=== PATIENT | male | born 1980 | race Caucasian/White ===

== ENCOUNTER 2016-03-30 13:25 | Inpatient (IN) | payer OTHER ==
[2016-03-30] MEDS ORDERED: Morphine INJ* 4 MG/ML 1 ML CARPUJECT IV ONE (14:53)
[2016-03-30] MEDS ORDERED: Famotidine IV* 10 MG/ML 2 ML (20 mg) IV ONE (14:53)
[2016-03-30] MEDS ORDERED: Metoclopramide IV* 5 MG/ML 2 ML VIAL IV ONE (14:53)
[2016-03-30 15:23] LABS: Hematocrit 41 % (42-52); Hemoglobin 13.6 g/dl (14.0-18.0); Mean Corpuscular HGB Conc 34 g/dl (31-36); Mean Corpuscular Hemoglobin 28 pg (27-31); Mean Corpuscular Volume 84 fL (80-94); Mean Platelet Volume 8 um3 (7.4-10.4); Red Blood Count 4.82 10^6/ul (4.0-5.4); Red Cell Distribution Width 15 % (10.5-15); White Blood Count 12.2 10^3/ul (3.5-10.8)
[2016-03-30] MEDS: NS 0.9% 1000 ML* 2,000 ML IV ONE ×2 (15:23→16:35)
[2016-03-30 15:37] LABS: Urine Bacteria Absent (Absent); Urine Bilirubin Negative (Negative); Urine Glucose 3+(>=500 mg/dL) (Negative); Urine Nitrite Negative (Negative)
[2016-03-30 15:38] LABS: ALT 14 U/L (7-52); AST 19 U/L (13-39); Albumin 4.8 g/dL (3.2-5.2); Alkaline Phosphatase 103 U/L (34-104); Amylase 76 U/L (29-103); Anion Gap 15 mmol/L (2-11); BUN/Creatinine Ratio 12.7 (8-20); Blood Urea Nitrogen 29 mg/dL (6-24); C Reactive Protein < 1.00 mg/L (< 5.00); CO2 Carbon Dioxide 22 mmol/L (22-32); Calcium 10.3 mg/dL (8.6-10.3); Chloride 90 mmol/L (101-111); EGFR Non-African American 32.7 (>60); Globulin 3.8 g/dL (2-4); Glucose 364 mg/dL (70-100); Lipase 35 U/L (11.0-82.0); Potassium 3.6 mmol/L (3.5-5.0); Sodium 127 mmol/L (133-145); Total Protein 8.6 g/dL (6.4-8.9)
--- NOTE | 2016-03-30 15:49 | RAD ---
Indication: Epigastric pain. 2 views of the chest including dual energy PA views demonstrate no mediastinal shift. Heart is of normal size and configuration. Lung hassan are clear. IMPRESSION: No active cardiopulmonary disease is noted.
[2016-03-30] MEDS ORDERED: Insulin REGULAR(*) 1 UNITS UNIT IV PUSH ONE (16:01)
[2016-03-30 16:15] LABS: Venous Bicarbonate HCO3 25.3 mmol/L (24-28)
--- NOTE | 2016-03-30 16:47 | ED ---
Leland Sarkar Billy, scribed for uShail Lockwood MD on 03/30/16 at 1451 . Abdominal Pain/Male - HPI Summary HPI Summary: Patient is a 36 year-old diabetic male coming to [facility] presenting with constant epigastric pain starting 6 days ago. He reports associated N/V/D. Severity . He states that he has had similar episodes of pain in the past related to his gluten allergy, but he denies any recent gluten intake. He reports BG >600 today at 0300 and 0900, and he administered 10 units humalog at that time. Last BM last night, 1x solid BM followed by 2x liquid BM. Denies any recent abx, travel, or contact with sick people at home. In the ED, he expressed concerns for DKA. - History of Current Complaint Chief Complaint: Gautam Stated Complaint: LEONARDO CHENG, Time Seen by Provider: 03/30/16 14:28 Hx Obtained From: Patient Onset/Duration: Gradual Onset, Lasting Days, Still Present Timing: Constant Severity Initially: Moderate Severity Currently: Moderate Pain Intensity: 8 Pain Scale Used: 0-10 Numeric Location: Epigastric Radiates: No Aggravating Factor(s): Nothing Alleviating Factor(s): Nothing Associated Signs And Symptoms: Positive: Nausea, Vomiting, Diarrhea - Allergies/Home Medications Allergies/Adverse Reactions: Allergies Allergy/AdvReac Type Severity Reaction Status Date / Time No Known Allergies Allergy Verified 06/28/15 13:18 PMH/Surg Hx/FS Hx/Imm Hx Endocrine/Hematology History: Reports: Hx Diabetes - Type 1 Denies: Hx Anticoagulant Therapy, Hx Thyroid Disease Cardiovascular History: Denies: Hx Hypertension, Hx Pacemaker/ICD, Hx Peripheral Vascular Disease Respiratory History: Reports: Hx Pneumonia Denies: Hx Asthma, Hx Chronic Bronchitis, Hx Chronic Obstructive Pulmonary Disease (COPD), Hx Cystic Fibrosis, Hx Lung Cancer, Hx Pleural Effusion, Hx Pulmonary Edema, Hx Pulmonary Embolism, Hx Seasonal Allergies, Hx Sleep Apnea, Other Respiratory Problems/Disorders GI History: Reports: Hx Gastroesophageal Reflux Disease, Hx Gastrointestinal Bleed, Hx Ulcer, Other GI Disorders - Erosive esophagitis, gastroparesis Denies: Hx Cirrhosis, Hx Crohn's Disease, Hx Diverticulosis, Hx Gall Bladder Disease, Hx Hiatal Hernia, Hx Irritable Bowel, Hx Jaundice, Hx Obstructive Bowel , Hx Ileostomy, Hx Pyloric Stenosis History: Reports: Other Problems/Disorders - chronic kidney disease Denies: Hx Kidney Stones, Hx Renal Disease Musculoskeletal History: Denies: Hx Arthritis, Hx Osteoporosis Sensory History: Denies: Hx Cataracts, Hx Contacts or Glasses, Hx Eye Injury, Hx Eye Prosthesis, Hx Glaucoma, Hx Macular Degeneration, Hx Vision Problem, Hx Deafness , Hx Hearing Aid, Hx Hearing Problem, Other Sensory Impairments Opthamlomology History: Denies: Hx Cataracts, Hx Contacts or Glasses, Hx Eye Injury, Hx Eye Prosthesis, Hx Glaucoma, Hx Macular Degeneration, Hx Vision Problem, Other Sensory Impairments Neurological History: Denies: Hx Dementia, Hx Headaches, Hx Seizures, Hx Transient Ischemic Attacks (TIA) Psychiatric History: Reports: Hx Anxiety, Hx Depression, Hx Bipolar Disorder, Hx Substance Abuse - Marijuana Denies: Hx Eating Disorder, Hx Panic Disorder, Hx Post Traumatic Stress Disorder, Hx Schizophrenia, Hx of Violent Episodes Against Others, Other Psychiatric Issues/Disorders - Cancer History Hx Chemotherapy: No Hx Radiation Therapy: No - Surgical History Hx Anesthesia Reactions: No - Immunization History Date of Tetanus Vaccine: Unk Date of Influenza Vaccine: None Infectious Disease History: No Infectious Disease History: Denies: Hx Hepatitis, Hx Human Immunodeficiency Virus (HIV), Hx Shingles, Hx Tuberculosis, History Other Infectious Disease, Traveled Outside the [place] in Last 30 Days - Family History Known Family History: Negative: Cardiac Disease, Hypertension, Diabetes - Social History Alcohol Use: None Substance Use Type: Reports: Marijuana Substance Use Comment - Amount & Last Used: frequent Smoking Status (MU): Current Some Day Smoker Type: Cigarettes Amount Used/How Often: 1/2PPD Length of Time of Smoking/Using Tobacco: 20 years Have You Smoked in the Last Year: Yes Review of Systems Negative: Fever Positive: Abdominal Pain, Vomiting, Diarrhea, Nausea All Other Systems Reviewed And Are Negative: Yes Physical Exam - Summary Physical Exam Summary: VITAL SIGNS: Reviewed. GENERAL: Patient is a thin male who is lying comfortable in the stretcher. Patient is not in any acute respiratory distress. HEAD AND FACE: No signs of trauma. No ecchymosis, hematomas or skull depressions. No sinus tenderness. EYES: PERRLA, EOMI x 2, No injected conjunctiva, no nystagmus. EARS: Hearing grossly intact. Ear canals and tympanic membranes are within normal limits. MOUTH: Oropharynx within normal limits. NECK: Supple, trachea is midline, no adenopathy, no JVD, no carotid bruit, no c- spine tenderness, neck with full ROM. CHEST: Symmetric, no tenderness at palpation LUNGS: Clear to auscultation bilaterally. No wheezing or crackles. CVS: Regular rate and rhythm, S1 and S2 present, no murmurs or gallops appreciated. ABDOMEN: Soft, epigastric tenderness. No signs of distention. No rebound no guarding, and no masses palpated. Bowel sounds are normal. EXTREMITIES: FROM in all major joints, no edema, no cyanosis or clubbing. NEURO: Alert and oriented x 3. No acute neurological deficits. Speech is normal and follows commands. SKIN: Dry and warm Triage Information Reviewed: Yes Vital Signs On Initial Exam: Initial Vitals Temp Pulse Resp BP Pulse Ox 97.8 F 111 16 148/101 100 03/30/16 13:26 03/30/16 13:26 03/30/16 13:26 03/30/16 13:26 03/30/16 13:26 Vital Signs Reviewed: Yes Diagnostics - Vital Signs Vital Signs Temp Pulse Resp BP Pulse Ox 03/30/16 13:26 97.8 F 111 16 148/101 100 - Laboratory Lab Results: Lab Results 03/30/16 Range/Units 13:33 POC Glucose (mg/dL) 370 H (74-106) mg/dL Result Diagrams: 03/30/16 15:00 03/30/16 15:00 Lab Statement: Any lab studies that have been ordered have been reviewed, and results considered in the medical decision making process. - Radiology CXR Xray Interpretation: No Acute Changes Radiology Interpretation Completed By: Radiologist - EKG 1518 EKG Interpretation: sinus tachy 114 bpm, no ST elevations Re-Evaluation - Re-Evaluation First Eval Re-Evaluation Time: 16:36 Comment: Plan for admission reviewed and discussed with the patient. He is agreeable with this plan. Abdominal Pain Fem Course/Dx - Course Assessment/Plan: Patient is a 36 year-old diabetic male coming to [facility] presenting with constant epigastric pain starting 6 days ago. He reports associated N/V/D. Severity 10/25. He states that he has had similar episodes of pain in the past related to his gluten allergy, but he denies any recent gluten intake. He reports BG >600 today at 0300 and 0900, and he administered 10 units humalog at that time. Last BM last night, 1x solid BM followed by 2x liquid BM. Denies any recent abx, travel, or contact with sick people at home. In the ED, he expressed concerns for DKA. Bloodwork shows WBC of 12.2 with increased H&H and platelet count possibly secondary to hemoconcentration. Blood gas shows pH of 7.59, sodium of 127. Chemistry shows anion gap is 15, CO2 is 22, BUN is 29, creatinine is 2.29, glucose is 364. CXR shows no abnormalities. In the ED course , he was given 2L of IV fluids and insulin for his hyperglycemia. Anion gap is elevated even though CO2 is normal. I believe he may go into DKA since he still has nausea and vomiting. Therefore, I discussed my physical exam findings with Dr. Martinez who accepted the patient for admission for further workup and management. He is hemodynamically stable, A&Ox3. - Diagnoses Differential Diagnosis/HQI/PQRI: Gall Bladder Disease, Pancreatitis, Other - DKA Provider Diagnoses: Hyperglycemia, Nausea and vomiting, Diarrhea - Provider Notifications Discussed Care Of Patient With: Dr. Martinez (hospitalist) @ [id number]: accepts admission. Discharge - Discharge Plan Condition: Stable Disposition: ADMITTED TO [facility] Referrals: Toby Edge MD [Primary Care Provider] - The documentation as recorded by the Leland deutsch Billy accurately reflects the service I personally performed and the decisions made by me, Suhail Lockwood MD.
[2016-03-30] MEDS ORDERED: Ondansetron ODT TAB* 4 MG PO ONE (17:03)
[2016-03-30] MEDS ORDERED: Acetaminophen TAB* 325 MG PO PRN (17:17)
[2016-03-30] MEDS ORDERED: Dextrose 50% Syringe 50 ML* 25 GM/50 ML SYRINGE IV PUSH PRN (17:26)
[2016-03-30] MEDS ORDERED: NS 0.9% 1000 ML* 2,000 ML IV ONE (17:34)
[2016-03-30] MEDS ORDERED: Ondansetron INJ* 2 MG/ML VIAL IV SCH ×2 (18:00→21:30)
--- NOTE | 2016-03-30 18:47 | HP ---
HOSPITAL MEDICINE HISTORY AND PHYSICAL: DATE OF ADMISSION: 03/30/16 PRIMARY CARE PHYSICIAN: Dr. Edge. ATTENDING PHYSICIAN: Dr. Matt Martinez * (dictation provided by Anjali Palmer NP). CHIEF COMPLAINT: Nausea, vomiting, diarrhea, abdominal pain. HISTORY OF PRESENT ILLNESS: Mr. Simmons is a 36-year-old male with a past medical history of type 1 diabetes since childhood; chronic episodes of nausea, vomiting, diarrhea with gastroparesis, gastritis, and esophagitis; history of celiac disease; anxiety; depression; bipolar disorder; neuropathy; chronic kidney disease, stage 3A to 3B who presents today to the hospital with complaint of nausea, vomiting and abdominal pain. He reports that these symptoms are consistent with his previous episodes. He has an allergy to wheat but states that he has had no exposure. He denies other complaint including chest pain, SOB, or palpitations. He reports that he is taking his medications regularly but that his blood sugar has been elevated. In the emergency room he had an elevated blood glucose to 364 but his anion gap is only 15 and his ABG demonstrates that he actually has a metabolic alkalosis likely secondary to hyperventilation due to pain. However based on patient's symptoms and history of Type 1 diabetes, there is a concern for the development of diabetic ketoacidosis and Hospital Medicine has been called to place patient on observation overnight. MEDICATIONS: 1. Lantus 28 units subcutaneously q.a.m. 2. Reglan 10 mg p.o. q.8 hours p.r.n. 3. Humalog insulin t.i.d. with meals via carb counting and sliding scale. 4. Tylenol 650 mg p.o. q.4 hours p.r.n. 5. Gabapentin 300 mg p.o. t.i.d. The patient states he has recently run out of that medication. 6. Pantoprazole 40 mg p.o. b.i.d. ALLERGIES: No known drug allergies. FAMILY HISTORY: Apparently, his mother had a CVA. The details of his father's health is unknown. SOCIAL HISTORY: The patient says he smokes occasionally. He does smoke marijuana frequently. There is no report of alcohol or drug use. He states his mother would be the healthcare proxy at this point. REVIEW OF SYSTEMS: A 14-point review of systems was completed with Mr. Simmons and all those not mentioned above are negative. PHYSICAL EXAMINATION GENERAL: Mr. Simmons is lying in the bed. He appears mildly uncomfortable, but in no acute distress. VITAL SIGNS: Temperature 97.8, heart rate 106, respiratory rate 16, O2 saturation 100% on room air, blood pressure 131/100. LUNGS: Clear to auscultation bilaterally with no accessory muscle use and good aeration. HEART: S1, S2 and rapid. No murmur, rub, or gallop. ABDOMEN: Soft. There is tenderness in the epigastric region. Bowel sounds positive. EXTREMITIES: No cyanosis or edema. NEURO: He is alert and oriented x3. He moves all extremities equally. There is no facial asymmetry or focal weakness. Extraocular movements are intact. SKIN: Intact. DIAGNOSTIC STUDIES/LAB DATA: Sodium 127, potassium 3.6, chloride 90, serum bicarbonate 22, BUN 29, creatinine 2.29, anion gap is 15, glucose 364. WBC 12.2 , hemoglobin 13.6, hematocrit 41, platelet count 496. pH 7.59, PCO2 23, PO2 28 , bicarbonate 58.8. Chest x-ray shows no acute process. ASSESSMENT AND PLAN: Mr. Simmons is a 36-year-old male with past medical history of type 1 diabetes and chronic issues with nausea, vomiting, diarrhea, and epigastric pain with history of esophagitis, ulcerations, and celiac disease, who presents today to the hospital with concern for repeat episode of nausea, vomiting, diarrhea, abdominal pain with concern for hyperglycemia and early stages of diabetic ketoacidosis. Our plans are for observation in the hospital for the followin. Hyperglycemia: The patient's blood sugar is mildly elevated. He is not meeting criteria for diabetic ketoacidosis at this point. His anion gap is only 15. His ABG is actually showing metabolic alkalosis. I think this is secondary to the patient's rapid respiratory rate as he feels uncomfortable and is breathing quickly. However, I am worried about the early development of diabetic ketoacidosis. Our plans will be to continue his home Lantus with lispro sliding scale q.6 hours. I will add on a hemoglobin A1c. He will have consistent carbohydrate diet as tolerated. 2. Nausea, vomiting, diarrhea, abdominal pain: This has been a chronic issue for Mr. Simmons. He has known history of frequent bouts of gastritis and esophagitis and ulcerations as well as celiac disease. At this point, plan to treat his symptoms with Protonix, sucralfate, Zofran, and Reglan. Should he develop any concerning symptoms, we would not hesitate to image further as needed. 3. DVT prophylaxis: With heparin subcu. 4. Disposition: To the medical floor. TIME SPENT: Approximately 60 minutes was spent on admission of this patient, more than half the time spent with the patient at the bedside reviewing the events leading up to this hospitalization, performing the physical examination, and reviewing the plan of [place] [id number]/[facility] #: [id number] DESHAUN
[2016-03-30] MEDS: Morphine INJ* 4 MG/ML 1 ML CARPUJECT IV PRN (19:43)
[2016-03-30] MEDS: NS 0.9% 1000 ML* 1,000 ML IV SCH (19:50)
[2016-03-30] MEDS: Gabapentin CAP(*) 300 MG PO SCH (21:05)
[2016-03-30] MEDS: Sucralfate TAB* 1 GM PO SCH (21:05)
[2016-03-30] MEDS: Heparin VIAL(*) 5000 UNITS/ML VIAL (FIVE THOUSAND) SUBCUT SCH (21:07)
[2016-03-30] MEDS: PROCHLORPERAZINE INJ 5 MG/ML 2 ML VIAL IV PRN (22:56)
[2016-03-30] MEDS: HYDROmorphone INJ* 1 MG/ML CARPUJECT SYRINGE IV SLOW PU PRN (22:57)
[2016-03-31] MEDS: Morphine INJ* 4 MG/ML 1 ML CARPUJECT IV PRN ×3 (02:20→12:56)
[2016-03-31] MEDS: NS 0.9% 1000 ML* 1,000 ML IV SCH ×3 (03:53→20:21)
[2016-03-31] MEDS: HYDROmorphone INJ* 1 MG/ML CARPUJECT SYRINGE IV SLOW PU PRN ×3 (05:30→20:22)
[2016-03-31] MEDS: Heparin VIAL(*) 5000 UNITS/ML VIAL (FIVE THOUSAND) SUBCUT SCH ×3 (05:34→21:27)
[2016-03-31 06:16] LABS: Hematocrit 33 % (42-52); Mean Corpuscular HGB Conc 34 g/dl (31-36); Mean Corpuscular Hemoglobin 29 pg (27-31); Mean Corpuscular Volume 85 fL (80-94); Mean Platelet Volume 8 um3 (7.4-10.4); Red Blood Count 3.84 10^6/ul (4.0-5.4); Red Cell Distribution Width 15 % (10.5-15); White Blood Count 10.3 10^3/ul (3.5-10.8)
[2016-03-31 06:27] LABS: BUN/Creatinine Ratio 9.5 (8-20); Calcium 8.3 mg/dL (8.6-10.3); EGFR African American 55.9 (>60); EGFR Non-African American 43.4 (>60); Potassium 3.4 mmol/L (3.5-5.0)
[2016-03-31] MEDS: Omeprazole CAP* 20 MG PO SCH ×2 (07:55→17:40)
[2016-03-31] MEDS: Metoclopramide IV* 5 MG/ML 2 ML VIAL IV PRN (08:57)
[2016-03-31] MEDS: Insulin LISPRO* 1 UNITS UNIT SUBCUT SCH ×3 (10:18→17:49)
[2016-03-31] MEDS: Insulin GLARGINE(*) 1 UNITS UNIT SUBCUT SCH (10:23)
[2016-03-31] MEDS: Sucralfate TAB* 1 GM PO SCH ×3 (10:24→20:23)
[2016-03-31] MEDS: Gabapentin CAP(*) 300 MG PO SCH ×3 (10:24→20:22)
[2016-03-31] MEDS: PROCHLORPERAZINE INJ 5 MG/ML 2 ML VIAL IV PRN (10:52)
[2016-03-31] MEDS: Ondansetron INJ* 2 MG/ML VIAL IV PRN ×2 (12:56→20:22)
--- NOTE | 2016-03-31 15:32 | PN ---
Subjective Date of Service: 03/31/16 Interval History: . denies abd pain + admits feeling suicidal -- reveals untreated bipolar disease "if I go home, I think I might hurt myself" very disorganized and in minor crisis. will admit and ask for psych consult it is probably that psychiatric situation is exacerbating his compliance with medical care and diabetes suffered as a result. reviewed labs with patient -- improved relative to admission. starting full liquids. Family History: Unchanged from Admission Social History: Unchanged from Admission Past Medical History: Unchanged from Admission Objective Active Medications: . Acetaminophen (Tylenol Tab*) 650 mg PO Q4H PRN PRN Reason: PAIN Dextrose (D50w Syringe 50 Ml*) 12.5 gm IV PUSH .FOR FS < 60 - SS PRN PRN Reason: FS < 60 Gabapentin (Neurontin Cap(*)) 300 mg PO TID [facility] Last Admin: 03/31/16 14:41 Dose: 300 mg Heparin Sodium (Porcine) (Heparin Vial(*)) 5,000 units SUBCUT Q8HR [facility] Last Admin: 03/31/16 14:13 Dose: Not Given Hydromorphone HCl (Dilaudid Iv*) 0.5 mg IV SLOW PU Q4H PRN PRN Reason: PAIN Last Admin: 03/31/16 10:51 Dose: 0.5 mg Sodium Chloride (Ns 0.9% 1000 Ml*) 1,000 mls @ 125 mls/hr IV PER RATE [facility] Last Admin: 03/31/16 12:22 Dose: 125 mls/hr Insulin Glargine (Lantus(*)) 28 units SUBCUT DAILY [facility] Last Admin: 03/31/16 10:23 Dose: 28 unit Insulin Human Lispro (Humalog*) 0 units SUBCUT [facility] PRN Reason: Protocol Last Admin: 03/31/16 12:56 Dose: 3 units Metoclopramide HCl (Reglan Iv*) 10 mg IV Q6H PRN PRN Reason: NAUSEA/VOMITING Last Admin: 03/31/16 08:57 Dose: 10 mg Morphine Sulfate (Morphine Inj (Syringe)*) 4 mg IV Q4H PRN PRN Reason: PAIN Last Admin: 03/31/16 12:56 Dose: 4 mg Omeprazole (Prilosec Cap*) 40 mg PO BID [facility] Last Admin: 03/31/16 07:55 Dose: 40 mg Ondansetron HCl (Zofran Inj*) 4 mg IV Q4H PRN PRN Reason: NAUSEA Last Admin: 03/31/16 12:56 Dose: 4 mg Prochlorperazine Edisylate (Compazine Inj*) 5 mg IV Q6H PRN PRN Reason: NAUSEA/VOMITING Last Admin: 03/31/16 10:52 Dose: 5 mg Sucralfate (Carafate*) 1 gm PO TID [facility] Last Admin: 03/31/16 14:46 Dose: 1 gm . Vital Signs 03/30/16 03/30/16 03/30/16 17:30 18:00 18:32 Temperature 97.7 F Pulse Rate 110 108 106 Respiratory 25 27 20 Rate Blood Pressure 171/108 157/97 165/95 (mmHg) O2 Sat by Pulse 99 100 100 Oximetry 03/30/16 03/30/16 03/30/16 19:43 20:43 21:05 Temperature Pulse Rate Respiratory 18 15 15 Rate Blood Pressure (mmHg) O2 Sat by Pulse Oximetry Appearance: emotionally upset - crying at times - dishevelled appearing Eyes: No Scleral Icterus Ears/Nose/Mouth/Throat: Clear Oropharnyx Neck: Trachea Midline Respiratory: Symmetrical Chest Expansion and Respiratory Effort Cardiovascular: NL Sounds; No Murmurs; No JVD Abdominal: NL Sounds; No Tenderness; No Distention Lymphatic: No Cervical Adenopathy Extremities: No Edema Skin: No Rash or Ulcers Lines/Tubes/Other Access: Clean, Dry and Intact Peripheral IV Nutrition: Taking PO's Result Diagrams: 03/31/16 05:51 03/31/16 05:51 Additional Lab and Data: Lab Results 03/30/16 Range/Units 13:33 POC Glucose (mg/dL) 370 H (74-106) mg/dL Assess/Plan/Problems-Billing . Assessment: 36 yo man admitted with mild DKA - multiple elctrolyte derangements -- now with suicidal thoughts and fears being discharged today Admit and request psychiatry consultation. . - Patient Problems (1) Abdominal pain Current Visit: No Status: Acute Priority: High Code(s): R10.9 - UNSPECIFIED ABDOMINAL PAIN Comment: - resolved with treatment of hyperglycemia - anion gap closed - not acidotic (2) DKA (diabetic ketoacidoses) Current Visit: No Status: Acute Priority: High Code(s): E13.10 - OTH DIABETES MELLITUS WITH KETOACIDOSIS WITHOUT COMA Comment: Blood CO2 and anion gap consistent with mild DKA that has resolved. Although it could have been precipitated by an attack of cyclic emesis/abd pain/ gastroparesis I suspect it was the cause of his abd pain. (3) History of anxiety Current Visit: No Status: Chronic Priority: Medium Code(s): Z86.59 - PERSONAL HISTORY OF OTHER MENTAL AND BEHAVIORAL DISORDERS (4) History of depression Current Visit: No Status: Chronic Priority: High Code(s): Z86.59 - PERSONAL HISTORY OF OTHER MENTAL AND BEHAVIORAL DISORDERS (5) History of neuropathy Current Visit: No Status: Chronic Priority: Medium Code(s): Z86.69 - PERSONAL HISTORY OF DIS OF THE NERVOUS SYS AND SENSE ORGANS Comment: A. Stable - Continue Gabapentin (6) Hx of bipolar disorder Current Visit: No Status: Chronic Priority: Medium Code(s): Z86.59 - PERSONAL HISTORY OF OTHER MENTAL AND BEHAVIORAL DISORDERS Comment: patient now with suicidal ideations not actively treated for bipolar disease psych consult requested
[2016-03-31] MEDS ORDERED: Potassium Chlor TAB* 10 MEQ TAB.ER PO ONE (15:33)
--- NOTE | 2016-03-31 18:00 | PN ---
Progress Note - Progress Note Note: Saw Mr. Simmons on his bedside for a psychiatric consult requested by Dr. Martinez. Please refer to my dictated consultation marj for details. Mr. Simmons at this time presents as severely depressed with depressed mood, anhedonia, helplessness , hopelessness, guilty and suicida with a plan to jump off high places. He is psychiatrically unsafe for discharge due to active suicidal thought and a definitive plan. Transfer patient to a behavioral health unit where ever bed is available. Thanks for allowing me to perticipate in Mr. Simmons's care.
--- NOTE | 2016-03-31 23:39 | CONS ---
CONSULTATION REPORT: DATE OF CONSULT: 03/31/16 IDENTIFYING DATA: Barron is a 36-year-old disabled male with prior history of multiple p sychiatric hospitalizations here, in [place] and other places, is currently admitted on medical [facility] with chief complaints of nausea, vomiting, diarrhea, and abdominal pain. CHIEF COMPLAINT: "Suicidal ideation with a plan to jump off any high rises or high places like [facility]." HISTORY OF PRESENT ILLNESS: Paco with known history of mental illness and a possible diagnosis of ma warren depressive disorder/bipolar disorder came to the emergency department yesterday complaining of n ausea, vomiting, diarrhea and abdominal pain for which he was admitted to the medical floor. During a routine assessment today, he reported to Dr. Martinez that he has been depressed and thinking abo ut suicide if he was sent home. During my assessment on the medical floor, he reports that he has b een depressed off and on for some time and has been thinking about suicide which got intense after h is admission to the medical floor. He thought about jumping off a high rise to end his life; however , could not do it because of the thoughts of his current fiance, who is hospitalized on [address] [place] [address]. Dur ing the assessment, he reports that he has been feeling depressed with sadness, anhedonia, hopelessn ess, worthlessness, and guilt feeling for pushing his fiancee too far to make her suicidal and hospi talized on [address] [place] [address]. He also reports that there were times that he could become hypomanic with eleva evita mood, sleeplessness, increased energy, so on. He denies any manic or hypomanic symptoms at this time, also denies any psychosis ever. According to Dr. Martinez, he is not medically ready tonight for discharge and might discharge him tomorrow if he is psychiatrically safe to be discharged home. I personally do not believe that he is psychiatrically safe to be discharged because of his prior history of impulsive behaviors and current suicidal thoughts with plan and the stressors in his life , which includes his fiancee's health status, his unemployment, financial problem, lack of support s ystems, as well as chronic physical health conditions that he has no control and desire to address a s recommended by multiple specialists and his primary care physician. PAST MEDICAL HISTORY: His medical problems include type 1 diabetes mellitus, for which he is admitt ed to the medical floor right now. MEDICATIONS: He is not on any psychotropic medications at this time; however, he was tried on diffe rent antidepressants includin. Prozac. 2. Zoloft. 3. Wellbutrin. FAMILY HISTORY: Unremarkable. SOCIAL HISTORY: He is single; however, has a fiancee who also has serious mental health problems. He smokes pot on a regular basis; however, denies using any other street drugs or alcohol. He state s that his mother would be the healthcare proxy if he decides and insisted on. PHYSICAL EXAM: For physical examination and laboratory data, please review the history and physical dictated on admission by Anjali Palmer NP. TREATMENT RECOMMENDATIONS: At this time, Barron is unsafe to discharge home due to severe depressi on and active suicidal ideation with a plan. He needs to be transferred to a behavioral health unit anywhere, where bed is available. Unfortunately, due to conflict of interest on , he cannot be transferred here. Thank you for allowing me to participate in Mr. Simmons's treatment. [id number]/[facility] #: [id number]
[2016-04-01] MEDS: Morphine INJ* 4 MG/ML 1 ML CARPUJECT IV PRN ×4 (00:14→19:28)
[2016-04-01] MEDS: NS 0.9% 1000 ML* 1,000 ML IV SCH ×3 (04:29→21:42)
[2016-04-01] MEDS: HYDROmorphone INJ* 1 MG/ML CARPUJECT SYRINGE IV SLOW PU PRN ×2 (04:34→21:03)
[2016-04-01] MEDS: Heparin VIAL(*) 5000 UNITS/ML VIAL (FIVE THOUSAND) SUBCUT SCH ×4 (05:23→20:48)
[2016-04-01 07:45] LABS: Hematocrit 32 % (42-52); Hemoglobin 10.6 g/dl (14.0-18.0); Mean Corpuscular HGB Conc 34 g/dl (31-36); Mean Corpuscular Hemoglobin 29 pg (27-31); Mean Corpuscular Volume 85 fL (80-94); Mean Platelet Volume 8 um3 (7.4-10.4); Red Blood Count 3.73 10^6/ul (4.0-5.4); Red Cell Distribution Width 15 % (10.5-15); White Blood Count 7.3 10^3/ul (3.5-10.8)
[2016-04-01 07:54] LABS: BUN/Creatinine Ratio 5.7 (8-20); Calcium 8.3 mg/dL (8.6-10.3); EGFR Non-African American 50.5 (>60)
[2016-04-01] MEDS: Insulin GLARGINE(*) 1 UNITS UNIT SUBCUT SCH (09:15)
[2016-04-01] MEDS: Sucralfate TAB* 1 GM PO SCH ×3 (09:15→20:52)
[2016-04-01] MEDS: Gabapentin CAP(*) 300 MG PO SCH ×3 (09:16→20:51)
[2016-04-01] MEDS: Omeprazole CAP* 20 MG PO SCH ×2 (09:16→17:12)
[2016-04-01] MEDS: Insulin LISPRO* 1 UNITS UNIT SUBCUT SCH ×3 (09:23→17:15)
[2016-04-01] MEDS: PROCHLORPERAZINE INJ 5 MG/ML 2 ML VIAL IV PRN ×2 (11:08→21:03)
--- NOTE | 2016-04-01 15:35 | PN ---
Subjective Date of Service: 04/01/16 Interval History: . feels better physically, but still states he wants to and fears he might kill himself if he leaves. awaiting psych bed...disability case manager and BHU working on it. no other s/sx described . Family History: Unchanged from Admission Social History: Unchanged from Admission Past Medical History: Unchanged from Admission Objective Active Medications: Acetaminophen (Tylenol Tab*) 650 mg PO Q4H PRN PRN Reason: PAIN Dextrose (D50w Syringe 50 Ml*) 12.5 gm IV PUSH .FOR FS < 60 - SS PRN PRN Reason: FS < 60 Gabapentin (Neurontin Cap(*)) 300 mg PO TID [facility] Last Admin: 04/01/16 13:55 Dose: 300 mg Heparin Sodium (Porcine) (Heparin Vial(*)) 5,000 units SUBCUT Q8HR [facility] Last Admin: 04/01/16 13:57 Dose: Not Given Hydromorphone HCl (Dilaudid Iv*) 0.5 mg IV SLOW PU Q4H PRN PRN Reason: PAIN Last Admin: 04/01/16 04:34 Dose: 0.5 mg Sodium Chloride (Ns 0.9% 1000 Ml*) 1,000 mls @ 125 mls/hr IV PER RATE [facility] Last Admin: 04/01/16 12:51 Dose: 125 mls/hr Insulin Glargine (Lantus(*)) 28 units SUBCUT DAILY [facility] Last Admin: 04/01/16 09:15 Dose: 28 unit Insulin Human Lispro (Humalog*) 0 units SUBCUT [facility] PRN Reason: Protocol Last Admin: 04/01/16 12:51 Dose: 1 units Metoclopramide HCl (Reglan Iv*) 10 mg IV Q6H PRN PRN Reason: NAUSEA/VOMITING Last Admin: 03/31/16 08:57 Dose: 10 mg Morphine Sulfate (Morphine Inj (Syringe)*) 4 mg IV Q4H PRN PRN Reason: PAIN Last Admin: 04/01/16 13:54 Dose: 4 mg Omeprazole (Prilosec Cap*) 40 mg PO BID [facility] Last Admin: 04/01/16 09:16 Dose: 40 mg Ondansetron HCl (Zofran Inj*) 4 mg IV Q4H PRN PRN Reason: NAUSEA Last Admin: 03/31/16 20:22 Dose: 4 mg Prochlorperazine Edisylate (Compazine Inj*) 5 mg IV Q6H PRN PRN Reason: NAUSEA/VOMITING Last Admin: 04/01/16 11:08 Dose: 5 mg Sucralfate (Carafate*) 1 gm PO TID [facility] Last Admin: 04/01/16 13:56 Dose: 1 gm Vital Signs 03/31/16 03/31/16 03/31/16 20:00 20:03 20:05 Temperature Pulse Rate 87 86 Respiratory 16 16 Rate Blood Pressure 175/100 169/99 (mmHg) O2 Sat by Pulse 100 Oximetry 03/31/16 03/31/16 03/31/16 20:22 21:22 22:10 Temperature Pulse Rate 77 Respiratory 16 16 Rate Blood Pressure 143/88 (mmHg) O2 Sat by Pulse 99 Oximetry Oxygen Devices in Use Now: None Appearance: appears stated age, NAD Eyes: No Scleral Icterus Ears/Nose/Mouth/Throat: Clear Oropharnyx Neck: NL Appearance and Movements; NL JVP, Trachea Midline Respiratory: Symmetrical Chest Expansion and Respiratory Effort Cardiovascular: NL Sounds; No Murmurs; No JVD Abdominal: NL Sounds; No Tenderness; No Distention Lymphatic: No Cervical Adenopathy Extremities: No Edema Skin: No Rash or Ulcers Neurological: Alert and Oriented x 3 Lines/Tubes/Other Access: Clean, Dry and Intact Peripheral IV Nutrition: Taking PO's Result Diagrams: 04/01/16 07:16 04/01/16 07:16 Additional Lab and Data: Lab Results 03/30/16 Range/Units 13:33 POC Glucose (mg/dL) 370 H (74-106) mg/dL Assess/Plan/Problems-Billing . Assessment: 36 yo man admitted with mild DKA - multiple elctrolyte derangements -- now with suicidal thoughts and fears being discharged today Admitted Psychiatry consultation done (appreciated) --> recommendation for inpatient psychiatric hospitalization. . - Patient Problems (1) Abdominal pain Current Visit: No Status: Acute Priority: High Code(s): R10.9 - UNSPECIFIED ABDOMINAL PAIN Comment: - Resolved with treatment of hyperglycemia - Anion gap closed - not acidotic (2) DKA (diabetic ketoacidoses) Current Visit: No Status: Acute Priority: High Code(s): E13.10 - OTH DIABETES MELLITUS WITH KETOACIDOSIS WITHOUT COMA Comment: Blood CO2 and anion gap consistent with mild DKA that has resolved. Although it could have been precipitated by an attack of cyclic emesis/abd pain/ gastroparesis I suspect it was the cause of his abd pain. (3) History of anxiety Current Visit: No Status: Chronic Priority: Medium Code(s): Z86.59 - PERSONAL HISTORY OF OTHER MENTAL AND BEHAVIORAL DISORDERS (4) History of depression Current Visit: No Status: Chronic Priority: High Code(s): Z86.59 - PERSONAL HISTORY OF OTHER MENTAL AND BEHAVIORAL DISORDERS (5) History of neuropathy Current Visit: No Status: Chronic Priority: Medium Code(s): Z86.69 - PERSONAL HISTORY OF DIS OF THE NERVOUS SYS AND SENSE ORGANS Comment: A. Stable - Continue Gabapentin (6) Hx of bipolar disorder Current Visit: No Status: Chronic Priority: Medium Code(s): Z86.59 - PERSONAL HISTORY OF OTHER MENTAL AND BEHAVIORAL DISORDERS Comment: patient now with suicidal ideations not actively treated for bipolar disease psych consult requested --> recommendation for inpatient psych hospitalization
[2016-04-01] MEDS: Metoclopramide IV* 5 MG/ML 2 ML VIAL IV PRN (19:28)
[2016-04-02] MEDS: Morphine INJ* 4 MG/ML 1 ML CARPUJECT IV PRN ×2 (03:22→08:43)
[2016-04-02] MEDS: Heparin VIAL(*) 5000 UNITS/ML VIAL (FIVE THOUSAND) SUBCUT SCH ×2 (05:17→14:05)
[2016-04-02] MEDS: NS 0.9% 1000 ML* 1,000 ML IV SCH (05:44)
[2016-04-02] MEDS: PROCHLORPERAZINE INJ 5 MG/ML 2 ML VIAL IV PRN (06:09)
[2016-04-02 07:24] VITALS: BP 143/89
[2016-04-02] MEDS: Insulin LISPRO* 1 UNITS UNIT SUBCUT SCH ×2 (08:14→12:22)
[2016-04-02] MEDS: Metoclopramide IV* 5 MG/ML 2 ML VIAL IV PRN (08:43)
[2016-04-02] MEDS: Sucralfate TAB* 1 GM PO SCH ×2 (08:44→14:05)
[2016-04-02] MEDS: Omeprazole CAP* 20 MG PO SCH (08:44)
[2016-04-02] MEDS: Gabapentin CAP(*) 300 MG PO SCH ×2 (08:44→14:05)
[2016-04-02] MEDS ORDERED: Insulin GLARGINE(*) 1 UNITS UNIT SUBCUT SCH (09:07)
[2016-04-02] MEDS: Insulin GLARGINE(*) 1 UNITS UNIT SUBCUT SCH (09:34)
[2016-04-02] MEDS ORDERED: Dextrose 50% Syringe 50 ML* 25 GM/50 ML SYRINGE IV PUSH PRN (10:08)
[2016-04-02] MEDS ORDERED: Insulin LISPRO* 1 UNITS UNIT SUBCUT SCH (11:30)
--- NOTE | 2016-04-02 12:12 | PN ---
Progress Note - Progress Note Note: Saw patient on bedside as per verbal consult request to see if he is psychiatrically stable and safe for discharge. Barron reports that he has been feeling much better both physically and emotionally and not suicidal anymore. Also denies any hallucinations,paranoia or homicidal ideations or any form of violent thoughts. Per patient reports he has established psychiatric and medical services in the community and an appartment to live. Overall Barron is safe for discharge home whenever medically cleared.
--- NOTE | 2016-04-02 21:34 | DS ---
DISCHARGE SUMMARY: DATE OF ADMISSION: 03/31/16 DATE OF DISCHARGE: 04/02/16 HISTORY: This 36-year-old man presented with nausea, vomiting, diarrhea and abdominal pain. The patient has a history of juvenile onset diabetes with gastroparesis, question of celiac disease, bipolar disorder, chronic kidney disease. He was found to have a mildly elevated blood sugar and anion gap of 15. His CO2 level was normal. He may have had early or borderline diabetic ketoacidosis. He was given lispro every 6 hours around the clock with sliding scale and continued on Lantus insulin. He was given intravenous fluids and symptomatic treatment. He did well in the hospital. His appetite was fair at the time of discharge. This may be about as good as it gets for him. His anion gap returned to normal. On the day of discharge, his blood sugars were 90 and 121. He had some hypoglycemia in the hospital. If he had stayed, I would have reduced his Lantus but as he is going home, I have chosen to continue him on the same regimen he has at home as he presented with hyperglycemia with a lab blood sugar of 364 and a fingerstick of 370. He will need to find a new primary care physician. FINAL DIAGNOSES: 1. Diabetes in poor control with elevated A1c. 2. Diabetic nephropathy. 3. Gastroparesis. DISCHARGE MEDICATIONS: 1. Gabapentin 300 mg t.i.d. 2. Metoclopramide 10 mg every 6 hours p.r.n. 3. Glargine 28 units daily. 4. Lispro by sliding scale for both correction and carbohydrate intake. 5. Pantoprazole 40 mg b.i.d. 6. Acetaminophen every 4 hours p.r.n. [id number]/[facility] #: [id number] [facility] [place] [facility]
== END 2016-04-02 14:15 | disposition home or self-care (01) | DRG 420 ==
LOC: ED 13:25 → MED 17:14 → OBSVTOIN 03-31 15:32
PROVIDERS: ADMIT Internal Medicine; ATTEND Internal Medicine
DX: E10.10 Type 1 diabetes mellitus with ketoacidosis without coma (principal); E87.3 Alkalosis; R45.851 Suicidal ideations; K31.84 Gastroparesis; E10.40 Type 1 diabetes mellitus with diabetic neuropathy, unspecified; E10.43 Type 1 diabetes mellitus with diabetic autonomic (poly)neuropathy; E10.21 Type 1 diabetes mellitus with diabetic nephropathy; K90.0 Celiac disease; F31.9 Bipolar disorder, unspecified; E10.22 Type 1 diabetes mellitus with diabetic chronic kidney disease; N18.3 Chronic kidney disease, stage 3 (moderate); F17.210 Nicotine dependence, cigarettes, uncomplicated; F12.10 Cannabis abuse, uncomplicated; K86.81 Exocrine pancreatic insufficiency; F41.9 Anxiety disorder, unspecified; Z79.4 Long term (current) use of insulin; Z79.899 Other long term (current) drug therapy; Z79.1 Long term (current) use of non-steroidal anti-inflammatories (NSAID); Z91.018 Allergy to other foods; Z82.3 Family history of stroke
CPT/HCPCS: 36415; 71020; 80048; 80053; 81003; 81015; 82150; 82803; 83036; 83690; 83880; 85025; 86140; A9270-GY; G0378; J0780; J1170; J1644; J2270; J2405; J2765

== ENCOUNTER 2016-04-22 13:40 | Emergency (ER) | payer OTHER ==
[2016-04-22] MEDS ORDERED: Ondansetron INJ* 2 MG/ML VIAL IV ONE ×2 (14:18→16:09)
[2016-04-22] MEDS ORDERED: Pantoprazole IV* 40 MG IV ONE (14:18)
[2016-04-22] MEDS ORDERED: NS 0.9% 1000 ML* 1,000 ML IV ONE ×2 (14:18→17:22)
[2016-04-22 14:25] LABS: Hematocrit 37 % (42-52); Hemoglobin 12.2 g/dl (14.0-18.0); Mean Corpuscular HGB Conc 33 g/dl (31-36); Mean Corpuscular Hemoglobin 29 pg (27-31); Mean Corpuscular Volume 85 fL (80-94); Mean Platelet Volume 8 um3 (7.4-10.4); Red Blood Count 4.29 10^6/ul (4.0-5.4); Red Cell Distribution Width 15 % (10.5-15); White Blood Count 9.3 10^3/ul (3.5-10.8)
[2016-04-22 14:43] LABS: Anion Gap 8 mmol/L (2-11); BUN/Creatinine Ratio 17.2 (8-20); Blood Urea Nitrogen 37 mg/dL (6-24); CO2 Carbon Dioxide 25 mmol/L (22-32); Chloride 97 mmol/L (101-111); EGFR Non-African American 35.2 (>60); Glucose 298 mg/dL (70-100); Potassium 3.8 mmol/L (3.5-5.0); Sodium 130 mmol/L (133-145)
[2016-04-22 14:44] LABS: ALT 14 U/L (7-52); AST 18 U/L (13-39); Albumin 3.9 g/dL (3.2-5.2); Alkaline Phosphatase 95 U/L (34-104); Amylase 108 U/L (29-103); C Reactive Protein < 1.00 mg/L (< 5.00); Calcium 9.7 mg/dL (8.6-10.3); EGFR African American 45.2 (>60); Globulin 3.5 g/dL (2-4); Lipase 73 U/L (11.0-82.0); Total Protein 7.4 g/dL (6.4-8.9)
[2016-04-22] MEDS ORDERED: Morphine INJ* 2 MG/ML 1 ML CARPUJECT IV ONE (15:17)
[2016-04-22 15:22] LABS: Urine Bacteria Absent (Absent); Urine Bilirubin Negative (Negative); Urine Glucose 3+(>=500 mg/dL) (Negative); Urine Nitrite Negative (Negative)
--- NOTE | 2016-04-22 15:39 | RAD ---
Indication: Abdominal pain and nausea. Wheat gluten allergy. Ingested bread last night. Diabetic. Comparison: November 16, 2014 Technique: Supine and upright views of the abdomen. Report: Negative for free air beneath the diaphragm. Normal bowel gas pattern. No suspicious calcifications or mass effect. Unremarkable soft tissue contours. IMPRESSION: No abdominal pelvic pathologic process evident.
[2016-04-22] MEDS ORDERED: Insulin REGULAR(*) 1 UNITS UNIT IV PUSH ONE (16:47)
[2016-04-22] MEDS ORDERED: Lidocaine 2% VISCOUS* 15 ML UDC PO ONE (16:53)
[2016-04-22] MEDS ORDERED: Al Hydrox/Mg Hydrox/Simet LIQ* 30 ML UDC PO ONE (16:53)
[2016-04-22] MEDS ORDERED: Metoclopramide IV* 5 MG/ML 2 ML VIAL IV ONE (16:54)
--- NOTE | 2016-04-22 18:02 | ED ---
Mary Sarkar Rebecca, scribed for Suhail Lockwood MD on 04/22/16 at 1403 . Abdominal Pain/Male - HPI Summary HPI Summary: Pt is a 36 y/o M who presents to ED c/o abd pain s/p incidental gluten ingestion. Pain began suddenly and has been constant since onset. Pain is discrete to the RUQ with occasional radiation to the chest. Pain is currently ranked 7/10 and characterized as burning. Sx aggravated and alleviated by nothing. Additionally c/o N/V (vomited 2x). Denies diarrhea. Current sx similar to prior episodes s/p gluten ingestion. Documented gluten meal allergy. - History of Current Complaint Stated Complaint: ABD PAIN Time Seen by Provider: 04/22/16 13:56 Hx Obtained From: Patient Onset/Duration: Sudden Onset, Still Present Timing: Constant Severity Initially: Moderate Severity Currently: Moderate Pain Intensity: 7 Pain Scale Used: 0-10 Numeric Location: Discrete At: RUQ Radiates: Yes Radiates to: Chest Character: Burning Aggravating Factor(s): Nothing Alleviating Factor(s): Nothing Associated Signs And Symptoms: Positive: Nausea, Vomiting - 2x. Negative: Diarrhea Similar Episode/Dx As:: Prior episodes s/p gluten meal ingestion - Allergies/Home Medications Allergies/Adverse Reactions: Allergies Allergy/AdvReac Type Severity Reaction Status Date / Time Gluten Meal Allergy Abdominal Verified 03/31/16 20:45 Pain PMH/Surg Hx/FS Hx/Imm Hx Endocrine/Hematology History: Reports: Hx Diabetes - Type 1 Denies: Hx Anticoagulant Therapy, Hx Thyroid Disease Cardiovascular History: Denies: Hx Hypertension, Hx Pacemaker/ICD, Hx Peripheral Vascular Disease, Other Cardiovascular Problems/Disorders Respiratory History: Reports: Hx Pneumonia Denies: Hx Asthma, Hx Chronic Bronchitis, Hx Chronic Obstructive Pulmonary Disease (COPD), Hx Cystic Fibrosis, Hx Lung Cancer, Hx Pleural Effusion, Hx Pulmonary Edema, Hx Pulmonary Embolism, Hx Seasonal Allergies, Hx Sleep Apnea, Other Respiratory Problems/Disorders GI History: Reports: Hx Gastroesophageal Reflux Disease, Hx Gastrointestinal Bleed, Hx Ulcer, Other GI Disorders - Gastroparesis Denies: Hx Cirrhosis, Hx Crohn's Disease, Hx Diverticulosis, Hx Gall Bladder Disease, Hx Hiatal Hernia, Hx Irritable Bowel, Hx Jaundice, Hx Obstructive Bowel , Hx Ileostomy, Hx Pyloric Stenosis History: Reports: Other Problems/Disorders - chronic kidney disease Denies: Hx Kidney Stones, Hx Renal Disease Musculoskeletal History: Denies: Hx Arthritis, Hx Osteoporosis Sensory History: Reports: Hx Vision Problem Denies: Hx Cataracts, Hx Contacts or Glasses, Hx Eye Injury, Hx Eye Prosthesis, Hx Glaucoma, Hx Macular Degeneration, Hx Deafness, Hx Hearing Aid, Hx Hearing Problem, Other Sensory Impairments Opthamlomology History: Reports: Hx Vision Problem Denies: Hx Cataracts, Hx Contacts or Glasses, Hx Eye Injury, Hx Eye Prosthesis, Hx Glaucoma, Hx Macular Degeneration, Other Sensory Impairments Neurological History: Denies: Hx Dementia, Hx Headaches, Hx Seizures, Hx Transient Ischemic Attacks (TIA) Psychiatric History: Reports: Hx Anxiety, Hx Depression, Hx Bipolar Disorder, Hx Substance Abuse - Marijuana Denies: Hx Eating Disorder, Hx Panic Disorder, Hx Post Traumatic Stress Disorder, Hx Schizophrenia, Hx of Violent Episodes Against Others, Other Psychiatric Issues/Disorders - Cancer History Hx Chemotherapy: No Hx Radiation Therapy: No - Surgical History Hx Anesthesia Reactions: No - Immunization History Date of Tetanus Vaccine: Unk Date of Influenza Vaccine: None Infectious Disease History: Denies: Hx Hepatitis, Hx Human Immunodeficiency Virus (HIV), Hx Shingles, Hx Tuberculosis, History Other Infectious Disease, Traveled Outside the [place] in Last 30 Days - Family History Known Family History: Negative: Cardiac Disease, Hypertension, Diabetes - Social History Alcohol Use: None Substance Use Type: Reports: Marijuana Substance Use Comment - Amount & Last Used: frequent Smoking Status (MU): Current Some Day Smoker Type: Cigarettes Amount Used/How Often: 1/2PPD Length of Time of Smoking/Using Tobacco: 20 years Have You Smoked in the Last Year: Yes Review of Systems Constitutional: Negative Eyes: Negative ENT: Negative Cardiovascular: Negative Respiratory: Negative Positive: Abdominal Pain - RUQ , Vomiting - 2x, Nausea. Negative: Diarrhea Genitourinary: Negative Musculoskeletal: Negative Skin: Negative Neurological: Negative Psychological: Normal All Other Systems Reviewed And Are Negative: Yes Physical Exam - Summary Physical Exam Summary: VITAL SIGNS: Reviewed. GENERAL: Patient is a well developed and nourished male who is lying comfortable in the stretcher. Patient is not in any acute respiratory distress. HEAD AND FACE: Normocephalic and atraumatic. EYES: PERRLA, EOMI x 2, No injected conjunctiva. EARS: Hearing grossly intact. Ear canals and tympanic membranes are WNL. MOUTH: Oropharynx within normal limits. NECK: Supple, trachea is midline, no adenopathy, no JVD. CHEST: Symmetric, no tenderness at palpation LUNGS: Clear to auscultation bilaterally. No wheezing or crackles. CVS: RRR,, S1 and S2 present, no murmurs or gallops appreciated. ABDOMEN: Soft, epigastric tenderness. No signs of distention. Positive bowel sounds. No rebound no guarding, and no masses palpated. No abdominal bruit or pulsations. EXTREMITIES: FROM in all major joints, no edema, no cyanosis or clubbing. NEURO: Alert and oriented x 3. No acute neurological deficits. Speech is normal. SKIN: Dry and warm Triage Information Reviewed: Yes Vital Signs On Initial Exam: Initial Vitals Temp Pulse Resp BP Pulse Ox 99 F 101 20 141/90 99 04/22/16 13:56 04/22/16 13:56 04/22/16 13:56 04/22/16 13:56 04/22/16 13:56 Vital Signs Reviewed: Yes Diagnostics - Vital Signs Vital Signs Temp Pulse Resp BP Pulse Ox 04/22/16 15:26 18 04/22/16 15:00 115 99 04/22/16 14:35 118 99 04/22/16 13:56 99 F 101 20 141/90 99 - Laboratory Lab Results: Lab Results 04/22/16 04/22/16 04/22/16 Range/Units 14:16 14:16 14:16 WBC 9.3 (3.5-10.8) 10^3/ul RBC 4.29 (4.0-5.4) 10^6/ul Hgb 12.2 L (14.0-18.0) g/dl Hct 37 L (42-52) % MCV 85 (80-94) fL MCH 29 (27-31) pg MCHC 33 (31-36) g/dl RDW 15 (10.5-15) % Plt Count 432 (150-450) 10^3/ul MPV 8 (7.4-10.4) um3 Neut % (Auto) 78.6 (38-83) % Lymph % (Auto) 14.1 L (25-47) % Ada % (Auto) 5.1 (1-9) % Eos % (Auto) 1.5 (0-6) % Baso % (Auto) 0.7 (0-2) % Absolute Neuts (auto) 7.3 (1.5-7.7) 10^3/ul Absolute Lymphs (auto) 1.3 (1.0-4.8) 10^3/ul Absolute Monos (auto) 0.5 (0-0.8) 10^3/ul Absolute Eos (auto) 0.1 (0-0.6) 10^3/ul Absolute Basos (auto) 0.1 (0-0.2) 10^3/ul Absolute Nucleated RBC 0 10^3/ul Nucleated RBC % 0 Sodium 130 L (133-145) mmol/L Potassium 3.8 (3.5-5.0) mmol/L Chloride 97 L (101-111) mmol/L Carbon Dioxide 25 (22-32) mmol/L Anion Gap 8 (2-11) mmol/L BUN 37 H (6-24) mg/dL Creatinine 2.15 H (0.67-1.17) mg/dL Est GFR ( Amer) 45.2 (>60) Est GFR (Non-Af Amer) 35.2 (>60) BUN/Creatinine Ratio 17.2 (8-20) Glucose 298 H (70-100) mg/dL Lactic Acid 1.7 (0.5-2.0) mmol/L Calcium 9.7 (8.6-10.3) mg/dL Total Bilirubin 0.40 (0.2-1.0) mg/dL AST 18 (13-39) U/L ALT 14 (7-52) U/L Alkaline Phosphatase 95 (34-104) U/L C-Reactive Protein < 1.00 (< 5.00) mg/L Total Protein 7.4 (6.4-8.9) g/dL Albumin 3.9 (3.2-5.2) g/dL Globulin 3.5 (2-4) g/dL Albumin/Globulin Ratio 1.1 (1-3) Amylase 108 H (29-103) U/L Lipase 73 (11.0-82.0) U/L Urine Color Urine Appearance Urine pH (5-9) Ur Specific Prosper (1.010-1.030) Urine Protein (Negative) Urine Ketones (Negative) Urine Blood (Negative) Urine Nitrate (Negative) Urine Bilirubin (Negative) Urine Urobilinogen (Negative) Ur Leukocyte Esterase (Negative) Urine WBC (Auto) (Absent) Urine RBC (Auto) (Absent) Urine Bacteria (Absent) Urine Glucose (Negative) 04/22/16 Range/Units 14:56 WBC (3.5-10.8) 10^3/ul RBC (4.0-5.4) 10^6/ul Hgb (14.0-18.0) g/dl Hct (42-52) % MCV (80-94) fL MCH (27-31) pg MCHC (31-36) g/dl RDW (10.5-15) % Plt Count (150-450) 10^3/ul MPV (7.4-10.4) um3 Neut % (Auto) (38-83) % Lymph % (Auto) (25-47) % Ada % (Auto) (1-9) % Eos % (Auto) (0-6) % Baso % (Auto) (0-2) % Absolute Neuts (auto) (1.5-7.7) 10^3/ul Absolute Lymphs (auto) (1.0-4.8) 10^3/ul Absolute Monos (auto) (0-0.8) 10^3/ul Absolute Eos (auto) (0-0.6) 10^3/ul Absolute Basos (auto) (0-0.2) 10^3/ul Absolute Nucleated RBC 10^3/ul Nucleated RBC % Sodium (133-145) mmol/L Potassium (3.5-5.0) mmol/L Chloride (101-111) mmol/L Carbon Dioxide (22-32) mmol/L Anion Gap (2-11) mmol/L BUN (6-24) mg/dL Creatinine (0.67-1.17) mg/dL Est GFR ( Amer) (>60) Est GFR (Non-Af Amer) (>60) BUN/Creatinine Ratio (8-20) Glucose (70-100) mg/dL Lactic Acid (0.5-2.0) mmol/L Calcium (8.6-10.3) mg/dL Total Bilirubin (0.2-1.0) mg/dL AST (13-39) U/L ALT (7-52) U/L Alkaline Phosphatase (34-104) U/L C-Reactive Protein (< 5.00) mg/L Total Protein (6.4-8.9) g/dL Albumin (3.2-5.2) g/dL Globulin (2-4) g/dL Albumin/Globulin Ratio (1-3) Amylase (29-103) U/L Lipase (11.0-82.0) U/L Urine Color Straw Urine Appearance Clear Urine pH 7.0 (5-9) Ur Specific Prosper 1.015 (1.010-1.030) Urine Protein 2+(100 mg/dl) H (Negative) Urine Ketones Negative (Negative) Urine Blood Negative (Negative) Urine Nitrate Negative (Negative) Urine Bilirubin Negative (Negative) Urine Urobilinogen Negative (Negative) Ur Leukocyte Esterase Negative (Negative) Urine WBC (Auto) Trace(0-5/hpf) (Absent) Urine RBC (Auto) 2+(6-10/hpf) H (Absent) Urine Bacteria Absent (Absent) Urine Glucose 3+(>=500 mg/dl) H (Negative) Result Diagrams: 04/22/16 14:16 04/22/16 14:16 Lab Statement: Any lab studies that have been ordered have been reviewed, and results considered in the medical decision making process. - Radiology Abd XR Xray Interpretation: No Acute Changes - No abdominal pelvic pathologic process evident. Radiology Interpretation Completed By: Radiologist Re-Evaluation - Re-Evaluation First Eval Re-Evaluation Time: 17:56 Change: Improved Comment: Pt's sx have improved. Abdominal Pain Fem Course/Dx - Course Assessment/Plan: Pt is a 36 y/o M who presents to ED c/o abd pain s/p incidental gluten ingestion. Pain began suddenly and has been constant since onset. Pain is discrete to the RUQ with occasional radiation to the chest. Pain is currently ranked 7/10 and characterized as burning. Sx aggravated and alleviated by nothing. Additionally c/o N/V (vomited 2x). Denies diarrhea. Current sx similar to prior episodes s/p gluten ingestion. Documented gluten meal allergy. Blood work shows mild anemia, NA 130, chronic renal failure, Hyperglycemia of 298. Initially he was given IV fluid, Zofran for nausea, Protonix for epigastric pain. He continued with nausea and vomiting therefore he was given more Zofran and reglan. He was given morphine for pain and Insulin for hyperglycemia. I believe symptoms are secondary to Gastroparesis. He was also given and GI cocktail. After all medications all his symptoms have improved. He is tolerating PO w/o nausea or vomiting. He also reports improvement in his epigastric pain. I discussed all the findings and test results with the patient. Patient was instructed to return to the emergency room immediately if any of the symptoms return or worsens. They were explained the possibility of an early abdominal pathology which was not detected at this time despite the physical exam and testing. They understand and agree. Abdominal exam before discharge: Soft, NT. No signs of distention. BS present. No rebound no guarding, and no masses palpated. Patient is alert and oriented and hemodynamically stable. Patient is to follow up with primary care physician in the next 2 to 3 days. Patient agree and understands. - Diagnoses Differential Diagnosis/HQI/PQRI: Constipation, Pancreatitis, Peptic Ulcer Disease Provider Diagnoses: Gastroparesis, Epigastric abdominal pain, Nausea & vomiting Discharge - Discharge Plan Condition: Stable Disposition: HOME Prescriptions: Metoclopramide TAB* [Reglan TAB*] 10 mg PO Q6H PRN #10 tab PRN Reason: Vomiting Pantoprazole TAB (NF) [Protonix TAB (NF)] 20 mg PO DAILY #10 tab Patient Education Materials: Gastroparesis (ED), Epigastric Pain (ED) Referrals: Toby Edge MD [Primary Care Provider] - 3 Days (Follow up with your primary care physician in the next 3 days. ) The documentation as recorded by the Mary deutsch Rebecca accurately reflects the service I personally performed and the decisions made by me, Suhail Lockwood MD.
[2016-04-22 18:51] VITALS: BP 175/104
== END 2016-04-22 18:51 | disposition home or self-care (01) ==
LOC: ED 13:40
DX: K31.84 Gastroparesis (principal); R10.11 Right upper quadrant pain; R10.13 Epigastric pain; R11.2 Nausea with vomiting, unspecified
CPT/HCPCS: 36415; 74020; 80053; 81003; 81015; 82150; 83605; 83690; 85025; 86140; 99284; A9270-GY; J2270; J2405; J2765

== ENCOUNTER 2016-05-04 20:51 | Inpatient (IN) | payer OTHER ==
[2016-05-04] MEDS ORDERED: NS 0.9% 1000 ML* 1,000 ML IV ONE (21:09)
[2016-05-04] MEDS ORDERED: Ondansetron INJ* 2 MG/ML VIAL IV ONE (21:10)
[2016-05-04 21:29] LABS: Hematocrit 36 % (42-52); Hemoglobin 12.3 g/dl (14.0-18.0); Mean Corpuscular HGB Conc 34 g/dl (31-36); Mean Corpuscular Hemoglobin 29 pg (27-31); Mean Corpuscular Volume 85 fL (80-94); Mean Platelet Volume 7 um3 (7.4-10.4); Red Cell Distribution Width 14 % (10.5-15); White Blood Count 9.1 10^3/ul (3.5-10.8)
--- NOTE | 2016-05-04 21:36 | ED ---
Renaldo Sarkar Aidan, scribed for Joshua Wetzel MD on 05/04/16 at 2112 . Abdominal Pain/Male - HPI Summary HPI Summary: 36 y/o male presents to the ED with a complaint of acute, constant, moderate-to- severe (7/10) epigastric pain and constant nausea since 0300 yesterday morning. Tylenol slightly alleviates the pain. Associated symptoms include vomiting. He has not had a PCP for roughly a year and is allergic to gluten. - History of Current Complaint Chief Complaint: EDNauseaVomitDiarrh Stated Complaint: ABD PAIN Time Seen by Provider: 05/04/16 21:04 Hx Obtained From: Patient Onset/Duration: Sudden Onset, Lasting Hours, Still Present Timing: Constant Severity Initially: Moderate Severity Currently: Moderate Pain Intensity: 7 Pain Scale Used: 0-10 Numeric Location: Epigastric Radiates: No Character: Sharp Aggravating Factor(s): Other: - unknown Alleviating Factor(s): Other: - tylenol Associated Signs And Symptoms: Positive: Nausea, Vomiting - Risk Factors Cardiac Risk Factors: Smoking - Allergies/Home Medications Allergies/Adverse Reactions: Allergies Allergy/AdvReac Type Severity Reaction Status Date / Time Gluten Meal Allergy Abdominal Verified 03/31/16 20:45 Pain PMH/Surg Hx/FS Hx/Imm Hx Endocrine/Hematology History: Reports: Hx Diabetes - Type 1 Denies: Hx Anticoagulant Therapy, Hx Thyroid Disease Cardiovascular History: Denies: Hx Hypertension, Hx Pacemaker/ICD, Hx Peripheral Vascular Disease, Other Cardiovascular Problems/Disorders Respiratory History: Reports: Hx Pneumonia Denies: Hx Asthma, Hx Chronic Bronchitis, Hx Chronic Obstructive Pulmonary Disease (COPD), Hx Cystic Fibrosis, Hx Lung Cancer, Hx Pleural Effusion, Hx Pulmonary Edema, Hx Pulmonary Embolism, Hx Seasonal Allergies, Hx Sleep Apnea, Other Respiratory Problems/Disorders GI History: Reports: Hx Gastroesophageal Reflux Disease, Hx Gastrointestinal Bleed, Hx Ulcer, Other GI Disorders - Gastroparesis Denies: Hx Cirrhosis, Hx Crohn's Disease, Hx Diverticulosis, Hx Gall Bladder Disease, Hx Hiatal Hernia, Hx Irritable Bowel, Hx Jaundice, Hx Obstructive Bowel , Hx Ileostomy, Hx Pyloric Stenosis History: Reports: Other Problems/Disorders - chronic kidney disease Denies: Hx Kidney Stones, Hx Renal Disease Musculoskeletal History: Denies: Hx Arthritis, Hx Osteoporosis Sensory History: Reports: Hx Vision Problem Denies: Hx Cataracts, Hx Contacts or Glasses, Hx Eye Injury, Hx Eye Prosthesis, Hx Glaucoma, Hx Macular Degeneration, Hx Deafness, Hx Hearing Aid, Hx Hearing Problem, Other Sensory Impairments Opthamlomology History: Reports: Hx Vision Problem Denies: Hx Cataracts, Hx Contacts or Glasses, Hx Eye Injury, Hx Eye Prosthesis, Hx Glaucoma, Hx Macular Degeneration, Other Sensory Impairments Neurological History: Denies: Hx Dementia, Hx Headaches, Hx Seizures, Hx Transient Ischemic Attacks (TIA) Psychiatric History: Reports: Hx Anxiety, Hx Depression, Hx Bipolar Disorder, Hx Substance Abuse - Marijuana Denies: Hx Eating Disorder, Hx Panic Disorder, Hx Post Traumatic Stress Disorder, Hx Schizophrenia, Hx of Violent Episodes Against Others, Other Psychiatric Issues/Disorders - Cancer History Hx Chemotherapy: No Hx Radiation Therapy: No - Surgical History Hx Anesthesia Reactions: No - Immunization History Date of Tetanus Vaccine: Unk Date of Influenza Vaccine: None Infectious Disease History: No Infectious Disease History: Denies: Hx Hepatitis, Hx Human Immunodeficiency Virus (HIV), Hx Shingles, Hx Tuberculosis, History Other Infectious Disease, Traveled Outside the [place] in Last 30 Days - Family History Known Family History: Negative: Cardiac Disease, Hypertension, Diabetes Family History: NON CONTRIBUTORY - Social History Occupation: Unemployed Lives: Alone - lives with girlfriend Alcohol Use: None Substance Use Type: Reports: Marijuana Substance Use Comment - Amount & Last Used: frequent Smoking Status (MU): Current Some Day Smoker Type: Cigarettes Amount Used/How Often: 1/2PPD Length of Time of Smoking/Using Tobacco: 20 years Have You Smoked in the Last Year: Yes Review of Systems Constitutional: Negative Eyes: Negative ENT: Negative Cardiovascular: Negative Respiratory: Negative Positive: Abdominal Pain, Vomiting, Nausea. Negative: Diarrhea Genitourinary: Negative Musculoskeletal: Negative Skin: Negative Neurological: Negative Psychological: Normal All Other Systems Reviewed And Are Negative: Yes Physical Exam Triage Information Reviewed: Yes Vital Signs On Initial Exam: Initial Vitals Temp Pulse Resp BP Pulse Ox 98.3 F 109 21 130/106 100 05/04/16 21:03 05/04/16 21:03 05/04/16 21:03 05/04/16 21:03 05/04/16 21:03 Vital Signs Reviewed: Yes Appearance: Positive: No Pain Distress, Thin Skin: Positive: Warm Head/Face: Positive: Normal Head/Face Inspection Eyes: Positive: SARAHY ENT: Positive: Hearing grossly normal Neck: Positive: Supple Respiratory/Lung Sounds: Positive: Clear to Auscultation, Breath Sounds Present Cardiovascular: Positive: RRR Abdomen Description: Positive: Nontender, Soft Bowel Sounds: Positive: Present Musculoskeletal: Positive: Strength/ROM Intact Neurological: Positive: Sensory/Motor Intact Psychiatric: Positive: Anxious Diagnostics - Vital Signs Vital Signs Temp Pulse Resp BP Pulse Ox 05/04/16 21:03 98.3 F 109 21 130/106 100 - Laboratory Lab Results: Lab Results 05/04/16 Range/Units 21:17 POC Glucose (mg/dL) 201 H (74-106) mg/dL Result Diagrams: 05/04/16 21:20 05/04/16 21:20 Lab Statement: Any lab studies that have been ordered have been reviewed, and results considered in the medical decision making process. Re-Evaluation - Re-Evaluation First Eval Comment: pt seen and evaluated by crisis, will admit Abdominal Pain Fem Course/Dx - Diagnoses Provider Diagnoses: Abdominal pain, Psychosis - Provider Notifications Instructed by Provider To: Admit As Inpatient Discharge - Discharge Plan Condition: Fair Disposition: ADMITTED TO [facility] The documentation as recorded by the Renaldo deutsch Aidan accurately reflects the service I personally performed and the decisions made by me, Joshua Wetzel MD.
[2016-05-04 21:44] LABS: BUN/Creatinine Ratio 12.4 (8-20); Calcium 9.6 mg/dL (8.6-10.3); EGFR Non-African American 29.5 (>60); Globulin 3.5 g/dL (2-4); Potassium 3.8 mmol/L (3.5-5.0); Total Bilirubin 0.4 mg/dL (0.2-1.0); Total Protein 7.5 g/dL (6.4-8.9)
[2016-05-04] MEDS ORDERED: Al Hydrox/Mg Hydrox/Simet LIQ* 30 ML UDC PO ONE (21:55)
[2016-05-04] MEDS ORDERED: Lidocaine 2% VISCOUS* 15 ML UDC PO ONE (21:55)
[2016-05-05] MEDS ORDERED: Famotidine IV* 10 MG/ML 2 ML (20 mg) IV SLOW PU ONE (00:52)
[2016-05-05] MEDS ORDERED: Ketorolac INJ* 30 MG/ML 1 ML VIAL IV PUSH ONE (02:57)
[2016-05-05] MEDS ORDERED: Al Hydrox/Mg Hydrox/Simet LIQ* 30 ML UDC PO PRN (05:36)
[2016-05-05] MEDS: Metoclopramide TAB* 10 MG PO PRN ×2 (05:37→11:36)
[2016-05-05] MEDS ORDERED: Acetaminophen TAB* 325 MG ONE (05:37)
[2016-05-05] MEDS ORDERED: Insulin GLARGINE(*) 1 UNITS UNIT SUBCUT SCH (09:00)
[2016-05-05] MEDS ORDERED: Dextrose 50% Syringe 50 ML* 25 GM/50 ML SYRINGE IV PUSH PRN (09:04)
[2016-05-05] MEDS: Gabapentin CAP(*) 300 MG PO SCH ×3 (09:22→20:29)
[2016-05-05] MEDS: Vitamin THERAPEUTIC TAB PO SCH (09:23)
[2016-05-05] MEDS: [UNRECOGNIZED DRUG - OTHER] SUBCUT SCH ×3 (12:24→21:18)
--- NOTE | 2016-05-05 17:29 | PN ---
Progress Note - Progress Note Note: I have increased Barron's lantus to 30 units SQ daily at 0900. Continue the lispro sliding scale as is for now. Full consultation to follow on 05/06/16 after more blood sugar data points are obtained.
[2016-05-05] MEDS: QUEtiapine TAB* 25 MG PO PRN (20:30)
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
[2016-05-06] MEDS: QUEtiapine TAB* 100 MG PO SCH ×2 (01:25→21:51)
[2016-05-06] MEDS: Acetaminophen TAB* 325 MG PO PRN (07:36)
[2016-05-06] MEDS: [UNRECOGNIZED DRUG - OTHER] SUBCUT SCH ×2 (07:38→12:27)
[2016-05-06] MEDS: Insulin GLARGINE(*) 1 UNITS UNIT SUBCUT SCH (09:10)
[2016-05-06] MEDS: Gabapentin CAP(*) 300 MG PO SCH ×3 (09:13→21:50)
[2016-05-06] MEDS: Vitamin THERAPEUTIC TAB PO SCH (09:23)
[2016-05-06 11:12] LABS: Urine Bacteria Absent (Absent); Urine Bilirubin Negative (Negative); Urine Glucose 3+(>=500 mg/dL) (Negative); Urine Nitrite Negative (Negative)
[2016-05-06 11:27] LABS: Benzodiazepine Urine Screen None Detected (None Detect)
--- NOTE | 2016-05-06 15:59 | PN ---
Progress Note - Progress Note Note: Pt refused to talk to me about his diabetes stating he has had diabetes for 32 years and he "doesn't want to talk about it." He states that his sugars are never controlled in the hospital. When I informed him of my plan for his insulin he stated "go ahead and make me a guinea pig." I told him that was not my plan but to help get his sugars under control. To this he then stated "then let me go." He did tell me that he usually takes lantus (did not specify dose) and a sliding scale and 1 unit/15g carbs with each meal. For now will give 3 units lispro with each meal standing and increase his sliding scale. He had a HbA1c obtained 03/30/16 that was elevated at 10% indicating poor control at home. I will continue to follow his blood sugars from afar and make adjustments in the insulin regimen as needed.
[2016-05-06] MEDS ORDERED: Insulin LISPRO* 1 UNITS UNIT SUBCUT SCH (16:30)
[2016-05-06] MEDS: Insulin LISPRO* 1 UNITS UNIT SUBCUT SCH ×2 (17:21→17:23)
[2016-05-06] MEDS: Metoclopramide TAB* 10 MG PO PRN (18:29)
[2016-05-06] MEDS: QUEtiapine TAB* 25 MG PO PRN (18:29)
--- NOTE | 2016-05-06 19:54 | PN ---
Progress Note - Progress Note Note: Patient told there are two patients on the unit (did not disclose their names) who have tested positive for Influenza A and I am recommending taking Tamiflu as a prophylactic measure. I made it clear this was optional. He declined the treatment after hearing of the indications, risks, benefits and alternatives.
[2016-05-07] MEDS: Insulin LISPRO* 1 UNITS UNIT SUBCUT SCH ×6 (08:12→16:43)
[2016-05-07] MEDS: Gabapentin CAP(*) 300 MG PO SCH ×3 (08:51→20:39)
[2016-05-07] MEDS: Vitamin THERAPEUTIC TAB PO SCH (08:51)
[2016-05-07] MEDS: Insulin GLARGINE(*) 1 UNITS UNIT SUBCUT SCH (08:52)
--- NOTE | 2016-05-07 15:31 | PN ---
Subjective - Subjective Service Type: 34157 Hosp care 15 min low complexity Subjective: The patient reports that his girlfriend overreacted by sending EMS to pick him up and take him to the hospital. "I'm depressed, no doubt. I'm not gonna kill myself though. All I need to do is to go home. That's where I feel the best. That's where I'll heal." He indicates that he has done well on bupropion in the past and is willing to start a trial of that. He also expresses a willingness to be enrolled at [facility] after d/c. Objective - Appearance Appearance: Thin Framed Dysmorphic Features: No Hygiene: Normal Grooming: Fairly Well Kept - Behavior Psychomotor Activities: Normal Exhibits Abnormal Movement: No - Attitude and Relatedness Attitude and Relatedness: Cooperative Eye Contact: Fair - Speech Quality: Unpressured Latencies: Normal Quantity: Appropriate - Mood Patient's Decription of Mood: "Sad" - Affect Observed Affect: Constricted Affect Consistent with: Dysphoria - Thought Process Patient's Thought Process: Coherent Thought Content: No Passive Wish, No Suicidal Planning, No Homicidal Ideation, No Paranoid Ideation - Sensorium Experiencing Hallucinations: No, Sensorium is Clear Type of Hallucinations: Visual: No, Auditory: No, Command: No - Level of Consciousness Level of Consciousness: Alert Orientation: Yes Intact, Yes Orientated to Time, Yes Orientated to Place, Yes Orientated to Person - Impulse Control Impulse Control: Tenuous - Insight and Judgement Insight and Judgement: Fair - Group Participation Particating in Group Activities: Yes - Medication Management Medication Management Adherence: Yes Assessment - Assessment Merits Inpatient Hospitalization: Consolidate Improvements, Pending Safe DC Plan Inpatient DSM-IV Dx: Unspecified Depressive DO Clinical Impression: 36 y.o. single, white male with a history of depression admitted after his girlfriend called EMS to have him brought in because he had made suicidal statements to her on the phone. Plan - Plan Treatment Plan: Name: PENNY MEDEROS Birthdate: 1980 [id number] Will start a trial of bupropion XL 150mg PO qam and consider discharging to [facility] follow up. Continued Medication Management: Start Medication Medications: Current Medications Acetaminophen (Tylenol Tab*) 650 mg PO Q4H PRN PRN Reason: PAIN or TEMP > 101 F Last Admin: 05/06/16 07:36 Dose: 650 mg Al Hydrox/Mg Hydrox/Simethicone (Maalox Plus*) 30 ml PO Q4H PRN PRN Reason: INDIGESTION Dextrose (D50w Syringe 50 Ml*) 12.5 gm IV PUSH .FS<60 PRN PRN Reason: FS < 60 Gabapentin (Neurontin Cap(*)) 300 mg PO TID [facility] Last Admin: 05/07/16 14:15 Dose: 300 mg Insulin Glargine (Lantus(*)) [facility] Last Admin: 05/07/16 08:52 Dose: 30 unit Insulin Human Lispro (Humalog*) 0 units SUBCUT [facility] PRN Reason: Protocol Last Admin: 05/07/16 12:24 Dose: 8 unit Insulin Human Lispro (Humalog*) 3 units SUBCUT AC [facility] Last Admin: 05/07/16 12:24 Dose: 3 units Metoclopramide HCl (Reglan Tab*) 10 mg PO Q6H PRN PRN Reason: PAIN - ABDOMINAL Last Admin: 05/06/16 18:29 Dose: 10 mg Multivitamins (Theragran Tab*) 1 tab PO DAILY [facility] Last Admin: 05/07/16 08:51 Dose: 1 tab Quetiapine Fumarate (Seroquel Tab*) 100 mg PO BEDTIME [facility] Last Admin: 05/06/16 21:51 Dose: 100 mg Quetiapine Fumarate (Seroquel Tab*) 25 mg PO Q6HR PRN PRN Reason: ANXIETY - SEVERE Stop: 05/12/16 19:59 Last Admin: 05/06/16 18:29 Dose: 25 mg - Discharge Plan Discharge Plan: Inpatient Hospitalization
[2016-05-07] MEDS: QUEtiapine TAB* 25 MG PO PRN (17:33)
[2016-05-07] MEDS: QUEtiapine TAB* 100 MG PO SCH (20:40)
[2016-05-08] MEDS: Metoclopramide TAB* 10 MG PO PRN (05:51)
[2016-05-08] MEDS: Acetaminophen TAB* 325 MG PO PRN (05:51)
[2016-05-08] MEDS: Insulin LISPRO* 1 UNITS UNIT SUBCUT SCH ×6 (08:13→16:44)
[2016-05-08] MEDS: BuPROPion XL* 150 MG TAB.XL PO SCH (08:31)
[2016-05-08] MEDS: Gabapentin CAP(*) 300 MG PO SCH ×3 (08:31→20:37)
[2016-05-08] MEDS: Vitamin THERAPEUTIC TAB PO SCH (08:31)
[2016-05-08] MEDS: QUEtiapine TAB* 25 MG PO PRN (08:31)
[2016-05-08] MEDS: Insulin GLARGINE(*) 1 UNITS UNIT SUBCUT SCH (10:56)
--- NOTE | 2016-05-08 15:25 | PN ---
Subjective - Subjective Service Type: 22247 Hosp care 15 min low complexity Subjective: Barron states he had a plan to kill himself by jumping from an overpass into traffic at [place], but no intent to act on it. I spoke with his girlfriend Liz today. She states she has no concerns for his safety if he is discharged tomorrow. He says he feels safe and ready to discharge in the morning. She reports that she feels his thoughts about killing himself came mostly from his abdominal discomfort due to gluten allergy. He reports his abdominal discomfort has resolved, and he is sleeping well now that he is taking Seroquel again. Discharge planning is underway and his plan will be in place for discharge tomorrow. Objective - Appearance Appearance: Healthy Appearing Dysmorphic Features: No Hygiene: Normal Grooming: Disheveled - Behavior Psychomotor Activities: Normal Exhibits Abnormal Movement: No - Attitude and Relatedness Attitude and Relatedness: Cooperative Eye Contact: Good - Speech Quality: Unpressured Latencies: Normal Quantity: Appropriate - Mood Patient's Decription of Mood: "Good" - Affect Observed Affect: Fair Affect Consistent with: Euthymia - Thought Process Patient's Thought Process: Coherent, Goal Directed Thought Content: No Passive Wish, No Suicidal Planning, No Homicidal Ideation, No Paranoid Ideation - Sensorium Experiencing Hallucinations: No, Sensorium is Clear Type of Hallucinations: Visual: No, Auditory: No, Command: No - Level of Consciousness Level of Consciousness: Alert Orientation: Yes Intact, Yes Orientated to Time, Yes Orientated to Place, Yes Orientated to Person - Impulse Control Impulse Control: Intact - Insight and Judgement Insight and Judgement: Fair - Group Participation Particating in Group Activities: Yes - Medication Management Medication Management Adherence: Yes Assessment - Assessment Merits Inpatient Hospitalization: Consolidate Improvements, For Discharge Planning Inpatient DSM-IV Dx: Unspecified Depressive DO Clinical Impression: Mr Mederos is a 36 year-old man who has a history of treatment for depressive illness, including state hospitalization, who was admitted for safety, assessment and treatment after reporting to his girlfriend a suicidal plan to jump from an overpass, but he has maintained throughout this admission that he had no intent to act on that plan. He reports he felt suicidal due to severe abdominal pain from a gluten allergy, though he also had recent stress from his girlfriend's miscarriage. Today he states again sustained remission of SI. He has restarted medications that have helped him before, and he states they are helping him again. We are planning for his discharge tomorrow. Plan - Plan Treatment Plan: Name: BARRON MEDEROS Birthdate: 1980 [id number] Continue current meds. Monitor MS and safety. Encourage groups and milieu. Discharge tomorrow to f/u at [facility]. Medications: Current Medications Acetaminophen (Tylenol Tab*) 650 mg PO Q4H PRN PRN Reason: PAIN or TEMP > 101 F Last Admin: 05/08/16 05:51 Dose: 650 mg Al Hydrox/Mg Hydrox/Simethicone (Maalox Plus*) 30 ml PO Q4H PRN PRN Reason: INDIGESTION Bupropion HCl (Wellbutrin Xl *) 150 mg PO DAILY [facility] PRN Reason: Protocol Last Admin: 05/08/16 08:31 Dose: 150 mg Dextrose (D50w Syringe 50 Ml*) 12.5 gm IV PUSH .FS<60 PRN PRN Reason: FS < 60 Gabapentin (Neurontin Cap(*)) 300 mg PO TID [facility] Last Admin: 05/08/16 12:45 Dose: 300 mg Insulin Glargine (Lantus(*)) [facility] Last Admin: 05/08/16 10:56 Dose: 35 unit Insulin Human Lispro (Humalog*) 0 units SUBCUT AC [facility] PRN Reason: Protocol Last Admin: 05/08/16 11:48 Dose: 6 unit Insulin Human Lispro (Humalog*) 3 units SUBCUT AC [facility] Last Admin: 05/08/16 11:50 Dose: 3 units Metoclopramide HCl (Reglan Tab*) 10 mg PO Q6H PRN PRN Reason: PAIN - ABDOMINAL Last Admin: 05/08/16 05:51 Dose: 10 mg Multivitamins (Theragran Tab*) 1 tab PO DAILY [facility] Last Admin: 05/08/16 08:31 Dose: 1 tab Quetiapine Fumarate (Seroquel Tab*) 100 mg PO BEDTIME [facility] Last Admin: 05/07/16 20:40 Dose: 100 mg Quetiapine Fumarate (Seroquel Tab*) 25 mg PO Q6HR PRN PRN Reason: ANXIETY - SEVERE Stop: 05/12/16 19:59 Last Admin: 05/08/16 08:31 Dose: 25 mg - Discharge Plan Discharge Plan: Outpatient Follow Up Outpatient Program: [facility]
[2016-05-08] MEDS: QUEtiapine TAB* 100 MG PO SCH (20:38)
[2016-05-09] MEDS: Insulin LISPRO* 1 UNITS UNIT SUBCUT SCH ×4 (07:26→11:38)
[2016-05-09] MEDS: Insulin GLARGINE(*) 1 UNITS UNIT SUBCUT SCH (08:01)
[2016-05-09 08:20] VITALS: BP 129/95
[2016-05-09] MEDS: Vitamin THERAPEUTIC TAB PO SCH (08:31)
[2016-05-09] MEDS: Gabapentin CAP(*) 300 MG PO SCH (08:31)
[2016-05-09] MEDS: BuPROPion XL* 150 MG TAB.XL PO SCH (08:31)
--- NOTE | 2016-05-09 10:41 | DS ---
Subjective - Subjective Service Types: 16929 [facility] Day Mgmt simple under 30 min Discharge Date: 05/09/16 Subjective: Mr Simmons continues to state as he has throughout this hospitalization that he feels safe and ready for discharge. His girlfriend has agreed that he will be safe after discharge. He spoke with another patient yesterday about a suicidal plan, but was clear in his statements that he had no intent to act on said plan to jump from an overpass. His girlfriend reports also that she has heard him speak of this plan, and she agrees that he now has no intent to act on that plan. Mr Simmons explained the conversation as just comparing thoughts on the subject of suicide, without any intention to act. HE reports feeling good about his future, with marriage to his girlfriend in the near future, and her going to meet his family. He reports remission of abdominal discomfort that both he and his girlfriend reported as a murillo contributor to his increased depressive symptoms including increased report of suicidal plan without intent. Objective - Appearance Appearance: Healthy Appearing Dysmorphic Features: No Hygiene: Normal Grooming: Disheveled - Behavior Psychomotor Activities: Normal Exhibits Abnormal Movement: No - Attitude and Relatedness Attitude and Relatedness: Well Related Eye Contact: Good - Speech Quality: Unpressured Latencies: Normal Quantity: Appropriate - Mood Patient's Decription of Mood: "I'm good, I want to go home." - Affect Observed Affect: Good Affect Consistent with: Euthymia - Thought Process Patient's Thought Process: Coherent, Goal Directed Thought Content: No Passive Wish, No Suicidal Planning - no intent to act on long-standing plan, No Homicidal Ideation, No Paranoid Ideation - Sensorium Experiencing Hallucinations: No, Sensorium is Clear Type of Hallucinations: Visual: No, Auditory: No, Command: No - Level of Consciousness Level of Consciousness: Alert Orientation: Yes Intact, Yes Orientated to Time, Yes Orientated to Place, Yes Orientated to Person - Impulse Control Impulse Control: Intact - Insight and Judgement Insight and Judgement: Fair - Group Participation Particating in Group Activities: Yes Group Participation Comments: but only 1 in past 24 hours - Medication Management Medication Management Adherence: Yes Treatment Course & Assessment Clinical Course & Impression: 2.. Mr Simmons is a 36 year-old man who has a history of treatment for depressive illness, including state hospitalization, who was admitted for safety, assessment and treatment after reporting to his girlfriend a suicidal plan to jump from an overpass, but he has maintained throughout this admission that he had no intent to act on that plan. He reports he felt suicidal due to severe abdominal pain from a gluten allergy, though he also had recent stress from his girlfriend's miscarriage. Today he states again sustained remission of SI. He has restarted medications that have helped him before, and he states they are helping him again. We are planning for his discharge tomorrow. 05.09.16 Mr Simmons is cleared for discharge. He reports he continues to have no intent to act on his long-standing plan to jump from an overpass. He reports that he has had this plan for a long time and never intends to act on it. His girlfriend supports that report, and supports his discharge today stating she has no concerns for his safety following discharge. He reports remission of abdominal pain related to gluten allergy that he says was activated by gluten- contaminated food he ate shortly before coming to the [facility]. He reports he is looking forward to marriage and having his girlfriend meet his family. He was med compliant, attended groups, and was pleasant in his interactions with staff and other patients. He has no interest in stopping smoking cannabis or stopping vaping tobacco, saying these activities do not harm his relationships or his responsibilities otherwise. HE has no physical complaints. He is assessed as at no acutely increased risk of harm to self or others, and capable of adequate self-care to avoid harm. He will therefore be discharged according to his wishes. HE agrees to follow-up psychiatric care re-initiated with [facility], and general medical care with Dr. Edge. His HgbA1c was elevated to 9.5, and he has dyslipidemia with triglycerides 199, total cholesterol 281, LDL 195; his HDL was good at 58. He will follow up on these medical issues of control of diabetes and dyslipidemia with Dr Edge. Merits Inpatient Hospitalization: No Clear for Discharge: Adequate Clinical Respons, Acceptable Safety Profile, Low Utility of Inpt Care Inpatient DSM-IV Dx: Other specified bipolar Disorder. Cannabis Use Disorder, moderate - [place] Medical Illness: Celiac disease, type I diabetes, dyslipidemia - [place] Stressors: abdominal pain, miscarriage of GF Family: some contact, but not a daily support Primary Support Group: girlfriend - [place] FYS-Blwcwi-Kjafd: 66 Estimate of Highest-Past Year: 66 Discharge Planning - Discharge Planning Discharge Plan: Outpatient Follow Up Outpatient Program: [facility] Recommendations for Continuing Care: Medication Management, Psychotherapy, Routine Metabolic Monitoring, Primary Care Followup - with Dr Edge Medications: Bupropion HCl (Wellbutrin Xl *) 150 mg PO DAILY [facility] PRN Reason: Protocol Last Admin: 05/09/16 08:31 Dose: 150 mg Gabapentin (Neurontin Cap(*)) 300 mg PO TID [facility] Last Admin: 05/09/16 08:31 Dose: 300 mg Insulin Glargine (Lantus(*)) 30 units SUBCUT QAM [facility] Insulin Human Lispro (Humalog*) 0 units SUBCUT AC [facility] PRN Reason: Protocol Last Admin: 05/09/16 07:26 Dose: Not Given Metoclopramide HCl (Reglan Tab*) 10 mg PO Q6H PRN PRN Reason: PAIN - ABDOMINAL Last Admin: 05/08/16 05:51 Dose: 10 mg Quetiapine Fumarate (Seroquel Tab*) 100 mg PO BEDTIME [facility] Last Admin: 05/08/16 20:38 Dose: 100 mg Discharge Planning: Prescriptions provided for discharge [x] Yes [] No Follow up care details as per social work arrangements. Patient response to discharge plan: [x] eager for discharge [x] agreeable with discharge plan [] ambivalent about discharge [] disagrees with discharge today
[2016-05-10] MEDS ORDERED: Insulin GLARGINE(*) 1 UNITS UNIT SUBCUT SCH (09:00)
== END 2016-05-09 12:25 | disposition home or self-care (01) | DRG 753 ==
LOC: ED 20:51 → BSU 05-05 04:00
PROVIDERS: ADMIT Psychiatry & Neurology Psychiatry; ATTEND Psychiatry & Neurology Psychiatry
DX: F31.89 Other bipolar disorder (principal); E10.9 Type 1 diabetes mellitus without complications; R45.851 Suicidal ideations; F12.90 Cannabis use, unspecified, uncomplicated; K90.0 Celiac disease; E78.5 Hyperlipidemia, unspecified; F17.210 Nicotine dependence, cigarettes, uncomplicated; F43.10 Post-traumatic stress disorder, unspecified; F41.9 Anxiety disorder, unspecified; Z79.4 Long term (current) use of insulin; Z81.1 Family history of alcohol abuse and dependence
CPT/HCPCS: 36415; 80053; 80061; 80307; 81003; 81015; 82947; 83036; 83605; 83690; 85025; 99222; 99231; 99238; A9270-GY; J2405

== ENCOUNTER 2016-06-14 10:28 | Emergency (ER) | payer OTHER ==
[2016-06-14 11:12] VITALS: BP 120/75
--- NOTE | 2016-06-14 11:50 | UC ---
Mitzy Sarkar Matthew, scribed for Suhail Lockwood MD on 06/14/16 at 1149 . Shoulder Pain HPI - HPI Summary HPI Summary: A 36 y/o male presents to [facility] with right shoulder pain for the past 7 months that has increased in the last 2 days. The pain is described as a "nail shooting through his arm." Associated symptoms include decreased ROM. Hx of rotator cuff injury to the same shoulder. The patient has taken ibuprofen and Tylenol with minimal relief. - History of Current Complaint Chief Complaint: UCUpperExtremity Stated Complaint: SHOULDER PAIN Time Seen by Provider: 06/14/16 11:27 Hx Obtained From: Patient Onset/Duration: Lasting Weeks, Still Present Timing: Constant Severity Initially: Moderate Severity Currently: Moderate Location Of Pain: Is Discrete @ - RT shoulder Pain Intensity: 7 Pain Scale Used: 0-10 Numeric Character: Sharp Aggravating Factor(s): Movement Associated Signs And Symptoms: Negative: Swelling, Redness, Bruising, Numbness/ Tingling - Allergies/Home Medications Allergies/Adverse Reactions: Allergies Allergy/AdvReac Type Severity Reaction Status Date / Time Gluten Meal Allergy Abdominal Verified 03/31/16 20:45 Pain PMH/Surg Hx/FS Hx/Imm Hx Endocrine History Of: Reports: Diabetes - Type 1 Denies: Thyroid Disease Cardiovascular History Of: Denies: Cardiac Disorders, Hypertension, Pacemaker/ICD Respiratory History Of: Reports: Pneumonia Denies: COPD, Asthma, Pulmonary Embolism GI/ History Of: Reports: Gastroesophageal Reflux, Ulcer, Gastrointestinal Bleed Denies: Gall Bladder Disease, Kidney Stones, Renal Disease Neurological History Of: Denies: TIA, CVA, Dementia, Seizures Psychological History Of: Reports: Anxiety, Depression, Bipolar Disorder Denies: Schizophrenia Cancer History Of: Denies: Lung Cancer Other History Of: Negative For: Anticoagulant Therapy - Surgical History Surgical History: None - Family History Known Family History: Negative: Cardiac Disease, Hypertension, Diabetes Family History: NON CONTRIBUTORY - Social History Alcohol Use: None Substance Use Type: Marijuana Substance Use Comment - Amount & Last Used: frequent Smoking Status (MU): Current Some Day Smoker Type: Cigarettes Amount Used/How Often: 1/2PPD Length of Time of Smoking/Using Tobacco: 20 years Have You Smoked in the Last Year: Yes When Did the Patient Quit Smoking/Using Tobacco: SMOKES MARIJUANA WELL Household Exposure Type: Cigarettes - Immunization History Most Recent Influenza Vaccination: Once many years ago Most Recent Tetanus Shot: 2009 Most Recent Pneumonia Vaccination: not received Review of Systems Constitutional: Negative Skin: Negative Eyes: Negative ENT: Negative Respiratory: Negative Cardiovascular: Negative Gastrointestinal: Negative Genitourinary: Negative Motor: Negative Neurovascular: Negative Musculoskeletal: Decreased ROM, Myalgia - RT shoulder pain Neurological: Negative Psychological: Negative All Other Systems Reviewed And Are Negative: Yes Physical Exam Triage Information Reviewed: Yes Vital Signs: Initial Vital Signs Temp 98.2 F 06/14/16 11:10 Pulse 103 06/14/16 11:10 Resp 16 06/14/16 11:10 BP 120/75 06/14/16 11:10 Pulse Ox 100 06/14/16 11:10 Vital Signs Reviewed: Yes - Additional Comments VITAL SIGNS: Reviewed. GENERAL: Patient is a well developed and nourished (male/female/child) who is lying comfortable in the stretcher. Patient is not in any acute respiratory distress. HEAD AND FACE: Normocephalic EYES: PERRLA, EOMI x 2. EARS: Hearing grossly intact. MOUTH: Oropharynx within normal limits. NECK: Supple, trachea is midline, no adenopathy, no JVD, no carotid bruit. CHEST: Symmetric, no tenderness at palpation LUNGS: Clear to auscultation bilaterally. No wheezing or crackles. CVS: Regular rate and rhythm, S1 and S2 present, no murmurs or gallops appreciated. ABDOMEN: Soft, non-tender. Bowel sounds are normal. No abdominal abnormal pulsations. EXTREMITIES: Full ROM in all major joints except the right shoulder, no edema, no cyanosis or clubbing. Right shoulder without any ecchymosis, deformities, or erythema. The patient has slightly decreased ROM with abduction at about 90 degrees. The patient has good pulses and good capillary refill. NEURO: Alert and oriented x 3. No acute neurological deficits. Speech is normal and follows commands. SKIN: Dry and warm Shoulder Course/Dx - Course Assessment/Plan: A 36 y/o male presents to [facility] with right shoulder pain for the past 7 months that has increased in the last 2 days. The pain is described as a "nail shooting through his arm." Associated symptoms include decreased ROM. Hx of rotator cuff injury to the same shoulder. The patient has taken ibuprofen and Tylenol with minimal relief. The patient has a chronic HX of shoulder pian secondary to rotaor cuff injury. He seems thinks that it has exacerbated the pain although he hasnt reported any Hx of trauma or heavy lifting. He current is in SSI and does not work. Since the injury is chronic I did not choose to do imagining, and there is no Hx of trauma. The patient will be taking ibuprofen and Tylenol for pain and be given a sling. The patient will follow-up with an orthopedist. He understands and agrees with the plan. He is hemodynamically stable and A&Ox3. I discussed all the findings with the patient. Patient was instructed to return to the emergency room immediately if any of the symptoms return or worsens. Plan of care was discussed with the patient and understands and agrees. All questions were answered at patient satisfaction. There were no further complaints or concerns. Lung exam before discharge: CTA B/L. Good air exchange. No wheezing or crackles heard. CVS: S1 and S2 present. No murmurs appreciated. Patient is alert and oriented x 3. Patient is hemodynamically stable. Patient will be discharged home with follow up health counselor in the next 2-3 days - Differential Dx/Diagnosis Differential Diagnosis/HQI/PQRI: Bursitis, Contusion, Sprain, Strain, Tendonitis Provider Diagnoses: Chronic rotator cuff injury Discharge - Discharge Plan Condition: Stable Disposition: HOME Patient Education Materials: Rotator Cuff Injury (ED) Referrals: Taniya Woodruff MD [Medical Doctor] - As Soon As Possible Additional Instructions: Please follow-up with Dr. Woodruff as soon as possible. The documentation as recorded by the Mitzy deutsch Matthew accurately reflects the service I personally performed and the decisions made by , Suhail Lockwood MD.
== END 2016-06-14 12:01 | disposition home or self-care (01) ==
LOC: UCEAST 10:28
DX: S46.001A Unspecified injury of muscle(s) and tendon(s) of the rotator cuff of right shoulder, initial encounter (principal); X58.XXXA Exposure to other specified factors, initial encounter; Y93.9 Activity, unspecified; Y92.9 Unspecified place or not applicable; F12.90 Cannabis use, unspecified, uncomplicated; Z72.0 Tobacco use
CPT/HCPCS: 99212; G0463

== ENCOUNTER 2016-07-16 20:08 | Emergency (ER) | payer OTHER ==
[2016-07-16] MEDS ORDERED: Ondansetron INJ* 2 MG/ML VIAL IV ONE (20:13)
[2016-07-16] MEDS: NS 0.9% 1000 ML* 2,000 ML IV ONE ×2 (20:20→21:02)
[2016-07-16] MEDS ORDERED: Pantoprazole IV* 40 MG IV ONE (20:45)
[2016-07-16] MEDS ORDERED: LORazepam INJ* 2 MG/ML 1 ML VIAL IV ONE (20:45)
[2016-07-16 20:54] LABS: Hematocrit 37 % (42-52); Hemoglobin 12.2 g/dl (14.0-18.0); Mean Corpuscular HGB Conc 33 g/dl (31-36); Mean Corpuscular Hemoglobin 28 pg (27-31); Mean Corpuscular Volume 85 fL (80-94); Mean Platelet Volume 8 um3 (7.4-10.4); Red Blood Count 4.31 10^6/ul (4.0-5.4); Red Cell Distribution Width 13 % (10.5-15)
[2016-07-16 21:07] LABS: ALT 14 U/L (7-52); AST 24 U/L (13-39); Albumin 4.3 g/dL (3.2-5.2); Alkaline Phosphatase 98 U/L (34-104); Anion Gap 14 mmol/L (2-11); BUN/Creatinine Ratio 12.3 (8-20); Blood Urea Nitrogen 31 mg/dL (6-24); C Reactive Protein < 1.00 mg/L (< 5.00); CO2 Carbon Dioxide 19 mmol/L (22-32); Calcium 9.8 mg/dL (8.6-10.3); Chloride 96 mmol/L (101-111); EGFR African American 37.5 (>60); EGFR Non-African American 29.1 (>60); Globulin 3.7 g/dL (2-4); Glucose 436 mg/dL (70-100); Lipase 40 U/L (11.0-82.0); Potassium 4.3 mmol/L (3.5-5.0); Sodium 129 mmol/L (133-145)
[2016-07-16] MEDS ORDERED: Al Hydrox/Mg Hydrox/Simet LIQ* 30 ML UDC PO ONE (21:07)
[2016-07-16] MEDS ORDERED: Lidocaine 2% VISCOUS* 15 ML UDC PO ONE (21:07)
[2016-07-16 21:08] LABS: Urine Bacteria Absent (Absent); Urine Bilirubin Negative (Negative); Urine Glucose 3+(>=500 mg/dL) (Negative); Urine Nitrite Negative (Negative)
[2016-07-16] MEDS ORDERED: Lidocaine 2% VISCOUS* 15 ML UDC ONE (21:08)
[2016-07-16] MEDS ORDERED: Al Hydrox/Mg Hydrox/Simet LIQ* 30 ML UDC ONE (21:08)
[2016-07-16] MEDS ORDERED: NS 0.9% 1000 ML* 1,000 ML IV ONE (21:51)
[2016-07-16] MEDS ORDERED: Metoclopramide IV* 5 MG/ML 2 ML VIAL IV ONE ×2 (21:52)
[2016-07-16] MEDS ORDERED: Morphine INJ* 4 MG/ML 1 ML SYRINGE IV ONE ×2 (21:52→23:59)
[2016-07-16] MEDS ORDERED: Morphine INJ* 4 MG/ML 1 ML SYRINGE ONE (21:53)
[2016-07-16] MEDS ORDERED: Metoclopramide IV* 5 MG/ML 2 ML VIAL ONE (21:53)
[2016-07-16] MEDS ORDERED: Insulin LISPRO* 1 UNITS UNIT SUBCUT ONE ×2 (22:00→22:02)
[2016-07-16] MEDS ORDERED: Dextrose 50% Syringe 50 ML* 25 GM/50 ML SYRINGE IV PUSH PRN (22:00)
--- NOTE | 2016-07-16 23:49 | ED ---
Jill Sarkar Claudia, scribed for Abdullahi Sams MD on 07/16/16 at 2017 . Abdominal Pain/Male - HPI Summary HPI Summary: 36 year old male presents to the ED with upper abdominal pain. Pt notes sudden onset 330am and has been persistent since. Pt notes associated Sx of [place] but denies fever chills. Pt states he has had this pain before and it was due to a food intolerance but the pt noted he has not been eating differently later and is unsure what is causing the pain today. Pt dnies any alleviating or aggravating factors. - History of Current Complaint Chief Complaint: EDAbdPain Stated Complaint: ABD PAIN Time Seen by Provider: 07/16/16 20:14 Hx Obtained From: Patient Onset/Duration: Sudden Onset - 330am today, Still Present Timing: Constant Pain Scale Used: 0-10 Numeric - Allergies/Home Medications Allergies/Adverse Reactions: Allergies Allergy/AdvReac Type Severity Reaction Status Date / Time Gluten Meal Allergy Abdominal Verified 03/31/16 20:45 Pain Home Medications: Home Medications Insulin GLARGINE(*) [Lantus(*)] 28 units SUBCUT QAM 07/16/16 [History Confirmed 07/16/16] Metoclopramide TAB* [Reglan TAB*] 10 mg PO BID 07/16/16 [History Confirmed 07/16] PMH/Surg Hx/FS Hx/Imm Hx Previously Healthy: Yes Endocrine/Hematology History: Reports: Hx Diabetes - Type 1 Denies: Hx Anticoagulant Therapy, Hx Thyroid Disease Cardiovascular History: Denies: Hx Hypertension, Hx Pacemaker/ICD, Hx Peripheral Vascular Disease, Other Cardiovascular Problems/Disorders Respiratory History: Reports: Hx Pneumonia Denies: Hx Asthma, Hx Chronic Bronchitis, Hx Chronic Obstructive Pulmonary Disease (COPD), Hx Cystic Fibrosis, Hx Lung Cancer, Hx Pleural Effusion, Hx Pulmonary Edema, Hx Pulmonary Embolism, Hx Seasonal Allergies, Hx Sleep Apnea, Other Respiratory Problems/Disorders GI History: Reports: Hx Gastroesophageal Reflux Disease, Hx Gastrointestinal Bleed, Hx Ulcer, Other GI Disorders - Gastroparesis Denies: Hx Cirrhosis, Hx Crohn's Disease, Hx Diverticulosis, Hx Gall Bladder Disease, Hx Hiatal Hernia, Hx Irritable Bowel, Hx Jaundice, Hx Obstructive Bowel , Hx Ileostomy, Hx Pyloric Stenosis History: Reports: Other Problems/Disorders - chronic kidney disease Denies: Hx Kidney Stones, Hx Renal Disease Musculoskeletal History: Denies: Hx Arthritis, Hx Osteoporosis Sensory History: Reports: Hx Vision Problem Denies: Hx Cataracts, Hx Contacts or Glasses, Hx Eye Injury, Hx Eye Prosthesis, Hx Glaucoma, Hx Macular Degeneration, Hx Deafness, Hx Hearing Aid, Hx Hearing Problem, Other Sensory Impairments Opthamlomology History: Reports: Hx Vision Problem Denies: Hx Cataracts, Hx Contacts or Glasses, Hx Eye Injury, Hx Eye Prosthesis, Hx Glaucoma, Hx Macular Degeneration, Other Sensory Impairments Neurological History: Denies: Hx Dementia, Hx Headaches, Hx Seizures, Hx Transient Ischemic Attacks (TIA) Psychiatric History: Reports: Hx Anxiety, Hx Depression, Hx Bipolar Disorder, Hx Substance Abuse - Marijuana Denies: Hx Eating Disorder, Hx Panic Disorder, Hx Post Traumatic Stress Disorder, Hx Schizophrenia, Hx of Violent Episodes Against Others, Other Psychiatric Issues/Disorders - Cancer History Hx Chemotherapy: No Hx Radiation Therapy: No - Surgical History Hx Anesthesia Reactions: No - Immunization History Date of Tetanus Vaccine: Unk Date of Influenza Vaccine: None Infectious Disease History: Denies: Hx Hepatitis, Hx Human Immunodeficiency Virus (HIV), Hx of Known/ Suspected MRSA, Hx Shingles, Hx Tuberculosis, History Other Infectious Disease, Traveled Outside the [place] in Last 30 Days - Family History Known Family History: Negative: Cardiac Disease, Hypertension, Diabetes Family History: NON CONTRIBUTORY - Social History Occupation: Unemployed Lives: Alone Alcohol Use: None Substance Use Type: Reports: Marijuana Substance Use Comment - Amount & Last Used: frequent Smoking Status (MU): Current Some Day Smoker Type: Cigarettes Amount Used/How Often: 1/2PPD Length of Time of Smoking/Using Tobacco: 20 years Have You Smoked in the Last Year: Yes Review of Systems Constitutional: Negative Negative: Fever Eyes: Negative ENT: Negative Cardiovascular: Negative Respiratory: Negative Positive: Abdominal Pain, Vomiting, Nausea Genitourinary: Negative Musculoskeletal: Negative Skin: Negative Neurological: Negative Psychological: Normal All Other Systems Reviewed And Are Negative: Yes Physical Exam Triage Information Reviewed: Yes Vital Signs On Initial Exam: Initial Vitals Temp Pulse Resp BP Pulse Ox 98.0 F 133 20 160/98 97 07/16/16 20:29 07/16/16 20:29 07/16/16 20:29 07/16/16 20:29 07/16/16 20:29 Vital Signs Reviewed: Yes Appearance: Positive: Well-Appearing. Negative: No Pain Distress - moderate distress Skin: Positive: Warm, Skin Color Reflects Adequate Perfusion, Dry Head/Face: Positive: Normal Head/Face Inspection Eyes: Positive: EOMI, SARAHY ENT: Positive: Other - oral mucosa dry Neck: Positive: Supple, Nontender Respiratory/Lung Sounds: Positive: Clear to Auscultation, Breath Sounds Present Cardiovascular: Positive: RRR Abdomen Description: Positive: Soft. Negative: Nontender - tender in the upper abd Bowel Sounds: Positive: Hypoactive Musculoskeletal: Positive: Normal, Strength/ROM Intact Neurological: Positive: Normal, Sensory/Motor Intact, Alert, Oriented to Person Place, Time Psychiatric: Positive: Affect/Mood Appropriate Diagnostics - Vital Signs Vital Signs Temp Pulse Resp BP Pulse Ox 07/16/16 23:00 97 109/64 97 07/16/16 22:30 91 132/82 96 07/16/16 22:00 118 183/107 98 07/16/16 21:59 18 07/16/16 21:30 110 180/116 93 07/16/16 21:02 20 07/16/16 21:00 117 162/100 98 07/16/16 20:39 120 98 07/16/16 20:30 105 16 153/94 98 07/16/16 20:29 98.0 F 133 20 160/98 97 - Laboratory Lab Results: Lab Results 07/16/16 07/16/16 07/16/16 Range/Units 20:20 20:20 20:20 WBC 10.0 (3.5-10.8) 10^3/ul RBC 4.31 (4.0-5.4) 10^6/ul Hgb 12.2 L (14.0-18.0) g/dl Hct 37 L (42-52) % MCV 85 (80-94) fL MCH 28 (27-31) pg MCHC 33 (31-36) g/dl RDW 13 (10.5-15) % Plt Count 464 H (150-450) 10^3/ul MPV 8 (7.4-10.4) um3 Neut % (Auto) 86.1 H (38-83) % Lymph % (Auto) 9.7 L (25-47) % [place] % (Auto) 3.4 (1-9) % Eos % (Auto) 0.4 (0-6) % Baso % (Auto) 0.4 (0-2) % Absolute Neuts (auto) 8.6 H (1.5-7.7) 10^3/ul Absolute Lymphs (auto) 1.0 (1.0-4.8) 10^3/ul Absolute Monos (auto) 0.3 (0-0.8) 10^3/ul Absolute Eos (auto) 0 (0-0.6) 10^3/ul Absolute Basos (auto) 0 (0-0.2) 10^3/ul Absolute Nucleated RBC 0 10^3/ul Nucleated RBC % 0 INR (Anticoag Therapy) 0.91 (0.89-1.11) APTT 31.9 (26.0-36.3) seconds Sodium 129 L (133-145) mmol/L Potassium 4.3 (3.5-5.0) mmol/L Chloride 96 L (101-111) mmol/L Carbon Dioxide 19 L (22-32) mmol/L Anion Gap 14 H (2-11) mmol/L BUN 31 H (6-24) mg/dL Creatinine 2.53 H (0.67-1.17) mg/dL Est GFR ( Amer) 37.5 (>60) Est GFR (Non-Af Amer) 29.1 (>60) BUN/Creatinine Ratio 12.3 (8-20) Glucose 436 H (70-100) mg/dL POC Glucose (mg/dL) (74-106) mg/dL Lactic Acid (0.5-2.0) mmol/L Calcium 9.8 (8.6-10.3) mg/dL Magnesium 2.0 (1.9-2.7) mg/dL Total Bilirubin 0.50 (0.2-1.0) mg/dL AST 24 (13-39) U/L ALT 14 (7-52) U/L Alkaline Phosphatase 98 (34-104) U/L C-Reactive Protein < 1.00 (< 5.00) mg/L Total Protein 8.0 (6.4-8.9) g/dL Albumin 4.3 (3.2-5.2) g/dL Globulin 3.7 (2-4) g/dL Albumin/Globulin Ratio 1.2 (1-3) Lipase 40 (11.0-82.0) U/L Urine Color Urine Appearance Urine pH (5-9) Ur Specific Elliott (1.010-1.030) Urine Protein (Negative) Urine Ketones (Negative) Urine Blood (Negative) Urine Nitrate (Negative) Urine Bilirubin (Negative) Urine Urobilinogen (Negative) Ur Leukocyte Esterase (Negative) Urine WBC (Auto) (Absent) Urine RBC (Auto) (Absent) Urine Bacteria (Absent) Urine Glucose (Negative) 07/16/16 07/16/16 07/16/16 Range/Units 20:20 20:50 23:01 WBC (3.5-10.8) 10^3/ul RBC (4.0-5.4) 10^6/ul Hgb (14.0-18.0) g/dl Hct (42-52) % MCV (80-94) fL MCH (27-31) pg MCHC (31-36) g/dl RDW (10.5-15) % Plt Count (150-450) 10^3/ul MPV (7.4-10.4) um3 Neut % (Auto) (38-83) % Lymph % (Auto) (25-47) % [place] % (Auto) (1-9) % Eos % (Auto) (0-6) % Baso % (Auto) (0-2) % Absolute Neuts (auto) (1.5-7.7) 10^3/ul Absolute Lymphs (auto) (1.0-4.8) 10^3/ul Absolute Monos (auto) (0-0.8) 10^3/ul Absolute Eos (auto) (0-0.6) 10^3/ul Absolute Basos (auto) (0-0.2) 10^3/ul Absolute Nucleated RBC 10^3/ul Nucleated RBC % INR (Anticoag Therapy) (0.89-1.11) APTT (26.0-36.3) seconds Sodium (133-145) mmol/L Potassium (3.5-5.0) mmol/L Chloride (101-111) mmol/L Carbon Dioxide (22-32) mmol/L Anion Gap (2-11) mmol/L BUN (6-24) mg/dL Creatinine (0.67-1.17) mg/dL Est GFR ( Amer) (>60) Est GFR (Non-Af Amer) (>60) BUN/Creatinine Ratio (8-20) Glucose (70-100) mg/dL POC Glucose (mg/dL) 239 H (74-106) mg/dL Lactic Acid 3.6 H* (0.5-2.0) mmol/L Calcium (8.6-10.3) mg/dL Magnesium (1.9-2.7) mg/dL Total Bilirubin (0.2-1.0) mg/dL AST (13-39) U/L ALT (7-52) U/L Alkaline Phosphatase (34-104) U/L C-Reactive Protein (< 5.00) mg/L Total Protein (6.4-8.9) g/dL Albumin (3.2-5.2) g/dL Globulin (2-4) g/dL Albumin/Globulin Ratio (1-3) Lipase (11.0-82.0) U/L Urine Color Yellow Urine Appearance Clear Urine pH 6.0 (5-9) Ur Specific Elliott 1.021 (1.010-1.030) Urine Protein 3+(>=500 mg/dl) H (Negative) Urine Ketones Trace H (Negative) Urine Blood Negative (Negative) Urine Nitrate Negative (Negative) Urine Bilirubin Negative (Negative) Urine Urobilinogen Negative (Negative) Ur Leukocyte Esterase Negative (Negative) Urine WBC (Auto) Absent (Absent) Urine RBC (Auto) Trace(0-2/hpf) (Absent) Urine Bacteria Absent (Absent) Urine Glucose 3+(>=500 mg/dl) H (Negative) Result Diagrams: 07/16/16 20:20 07/16/16 20:20 Lab Statement: Any lab studies that have been ordered have been reviewed, and results considered in the medical decision making process. Re-Evaluation - Re-Evaluation 1 Re-Evaluation Time: 22:17 Comment: The pt is still experiencing some pain and is requesting some more pain medication. 2 Re-Evaluation Time: 23:34 Change: Improved - Pt has improved, after discussing lab results pt is agreeable with the plan to be d/c home. Abdominal Pain Fem Course/Dx - Course Course Of Treatment: NO CRITICAL CARE TIME Assessment/Plan: PATIENT IMPROVED IN ED WITH IVF, ZOFRAN, PROTONIX, ATIVAN, REGLAN, MORHINE, GI COCKTAIL AND INSULIN. DISCHARGE HOME STABLE. - Diagnoses Provider Diagnoses: Abdominal pain, Vomiting, Dehydration, Renal insufficiency Discharge - Discharge Plan Condition: Stable Disposition: HOME Patient Education Materials: Abdominal Pain (ED), Dehydration (ED), Acute Nausea and Vomiting (ED), Impaired Kidney Function (ED) Referrals: Toby Edge MD [Primary Care Provider] - Additional Instructions: FOLLOW UP WITH YOUR DOCTOR. RETURN TO THE EMERGENCY DEPARTMENT FOR ANY WORSENING OF YOUR CONDITION OR QUESTIONS OR CONCERNS. The documentation as recorded by the Jill deutsch Claudia accurately reflects the service I personally performed and the decisions made by me, Abdullahi Sams MD.
[2016-07-16 23:55] VITALS: BP 134/93
[2016-07-17] MEDS ORDERED: Morphine INJ* 4 MG/ML 1 ML SYRINGE ONE (00:01)
--- NOTE | 2016-07-17 10:00 | PN ---
Progress Note - Progress Note Note: [facility] called requesting a change in the Lantus dose, to dispense out to patient 5 instead of 1. Otherwise, they are unable to give the patient any. Maria M Trevino PA-C after looking over the dosage, notes from Dr. Sams and reasoning, approved the increased dispense.
== END 2016-07-17 00:33 | disposition home or self-care (01) ==
LOC: ED 20:08
DX: R11.2 Nausea with vomiting, unspecified (principal); R10.9 Unspecified abdominal pain; N28.9 Disorder of kidney and ureter, unspecified; Z72.0 Tobacco use; E86.0 Dehydration
CPT/HCPCS: 36415; 80053; 81003; 81015; 83605; 83690; 83735; 85025; 85610; 85730; 86140; 99284; A9270-GY; J2060; J2270; J2405

== ENCOUNTER 2016-09-05 11:19 | Emergency (ER) | payer OTHER ==
[2016-09-05 11:26] VITALS: BP 156/104
[2016-09-05] MEDS ORDERED: Metoclopramide IV* 5 MG/ML 2 ML VIAL IV ONE (12:44)
[2016-09-05] MEDS ORDERED: NS 0.9% 1000 ML* 3,000 ML IV ONE (12:44)
[2016-09-05 13:09] LABS: Hematocrit 40 % (42-52); Hemoglobin 13.2 g/dl (14.0-18.0); Mean Corpuscular HGB Conc 33 g/dl (31-36); Mean Corpuscular Hemoglobin 28 pg (27-31); Mean Corpuscular Volume 85 fL (80-94); Mean Platelet Volume 8 um3 (7.4-10.4); Red Blood Count 4.74 10^6/ul (4.0-5.4); Red Cell Distribution Width 13 % (10.5-15); White Blood Count 13.4 10^3/ul (3.5-10.8)
[2016-09-05] MEDS ORDERED: Pantoprazole IV* 40 MG IV ONE (13:18)
[2016-09-05] MEDS ORDERED: LORazepam INJ* 2 MG/ML 1 ML VIAL IV PUSH ONE (13:19)
[2016-09-05 13:26] LABS: ALT 14 U/L (7-52); AST 20 U/L (13-39); Albumin 4.5 g/dL (3.2-5.2); Alkaline Phosphatase 117 U/L (34-104); Amylase 101 U/L (29-103); Anion Gap 10 mmol/L (2-11); BUN/Creatinine Ratio 13.7 (8-20); Blood Urea Nitrogen 31 mg/dL (6-24); C Reactive Protein < 1.00 mg/L (< 5.00); CO2 Carbon Dioxide 27 mmol/L (22-32); Calcium 10.1 mg/dL (8.6-10.3); Chloride 98 mmol/L (101-111); Creatine Kinase 105 U/L (10-223); EGFR African American 42.7 (>60); EGFR Non-African American 33.2 (>60); Globulin 3.8 g/dL (2-4); Glucose 298 mg/dL (70-100); Lipase 32 U/L (11.0-82.0); Sodium 135 mmol/L (133-145); Total Protein 8.3 g/dL (6.4-8.9)
[2016-09-05 13:39] LABS: Venous Bicarbonate HCO3 21.8 mmol/L (24-28)
--- NOTE | 2016-09-05 14:11 | RAD ---
Indication: Abdominal pain, ileus. Flat and upright views of the abdomen demonstrates no free air. Air-fluid level is noted in the stomach. Bowel gas pattern is unremarkable. IMPRESSION: No free air or obstruction is noted.
[2016-09-05] MEDS ORDERED: Morphine INJ* 4 MG/ML 1 ML SYRINGE IV ONE (14:40)
[2016-09-05] MEDS ORDERED: Insulin REGULAR(*) 1 UNITS UNIT IV PUSH ONE (14:41)
[2016-09-05] MEDS ORDERED: Ondansetron INJ* 2 MG/ML VIAL IV ONE (16:16)
[2016-09-05] MEDS ORDERED: Ondansetron INJ* 2 MG/ML VIAL ONE (16:17)
--- NOTE | 2016-09-05 18:45 | ED ---
Karuna Sarkar Salem, scribed for John Mckenna MD on 09/05/16 at 1315 . Abdominal Pain/Male - HPI Summary HPI Summary: Patient is a 36 y/o M who presents to the ED with chronic diffuse abd pain since 0300 this morning. He states that pain does not radiate. He denies CP, SOB , blood in stool, or hematemesis. PMHx of DM and states that his blood glucose has been high lately. Pt is due for an insulin pump soon. - History of Current Complaint Chief Complaint: EDAbdPain Stated Complaint: ABD PAIN Time Seen by Provider: 09/05/16 13:04 Hx Obtained From: Patient Onset/Duration: Gradual Onset, Lasting Hours, Still Present Timing: Constant Severity Initially: Moderate Severity Currently: Moderate Pain Intensity: 8 Pain Scale Used: 0-10 Numeric Location: Diffuse Radiates: No Character: Sharp Aggravating Factor(s): Nothing Alleviating Factor(s): Position Associated Signs And Symptoms: Positive: Negative - Allergies/Home Medications Allergies/Adverse Reactions: Allergies Allergy/AdvReac Type Severity Reaction Status Date / Time Gluten Meal Allergy Abdominal Verified 03/31/16 20:45 Pain PMH/Surg Hx/FS Hx/Imm Hx Endocrine/Hematology History: Reports: Hx Diabetes - Type 1 Denies: Hx Anticoagulant Therapy, Hx Thyroid Disease Cardiovascular History: Denies: Hx Hypertension, Hx Pacemaker/ICD, Hx Peripheral Vascular Disease, Other Cardiovascular Problems/Disorders Respiratory History: Reports: Hx Pneumonia Denies: Hx Asthma, Hx Chronic Bronchitis, Hx Chronic Obstructive Pulmonary Disease (COPD), Hx Cystic Fibrosis, Hx Lung Cancer, Hx Pleural Effusion, Hx Pulmonary Edema, Hx Pulmonary Embolism, Hx Seasonal Allergies, Hx Sleep Apnea, Other Respiratory Problems/Disorders GI History: Reports: Hx Gastroesophageal Reflux Disease, Hx Gastrointestinal Bleed, Hx Ulcer, Other GI Disorders - Gastroparesis Denies: Hx Cirrhosis, Hx Crohn's Disease, Hx Diverticulosis, Hx Gall Bladder Disease, Hx Hiatal Hernia, Hx Irritable Bowel, Hx Jaundice, Hx Obstructive Bowel , Hx Ileostomy, Hx Pyloric Stenosis History: Reports: Other Problems/Disorders - chronic kidney disease Denies: Hx Kidney Stones, Hx Renal Disease Musculoskeletal History: Denies: Hx Arthritis, Hx Osteoporosis Sensory History: Reports: Hx Vision Problem Denies: Hx Cataracts, Hx Contacts or Glasses, Hx Eye Injury, Hx Eye Prosthesis, Hx Glaucoma, Hx Macular Degeneration, Hx Deafness, Hx Hearing Aid, Hx Hearing Problem, Other Sensory Impairments Opthamlomology History: Reports: Hx Vision Problem Denies: Hx Cataracts, Hx Contacts or Glasses, Hx Eye Injury, Hx Eye Prosthesis, Hx Glaucoma, Hx Macular Degeneration, Other Sensory Impairments Neurological History: Denies: Hx Dementia, Hx Headaches, Hx Seizures, Hx Transient Ischemic Attacks (TIA) Psychiatric History: Reports: Hx Anxiety, Hx Depression, Hx Bipolar Disorder, Hx Substance Abuse - Marijuana Denies: Hx Eating Disorder, Hx Panic Disorder, Hx Post Traumatic Stress Disorder, Hx Schizophrenia, Hx of Violent Episodes Against Others, Other Psychiatric Issues/Disorders - Cancer History Hx Chemotherapy: No Hx Radiation Therapy: No - Surgical History Hx Anesthesia Reactions: No - Immunization History Date of Tetanus Vaccine: Unk Date of Influenza Vaccine: None Infectious Disease History: Denies: Hx Hepatitis, Hx Human Immunodeficiency Virus (HIV), Hx of Known/ Suspected MRSA, Hx Shingles, Hx Tuberculosis, History Other Infectious Disease, Traveled Outside the [place] in Last 30 Days - Family History Known Family History: Negative: Cardiac Disease, Hypertension, Diabetes Family History: NON CONTRIBUTORY - Social History Alcohol Use: None Substance Use Type: Reports: Marijuana Substance Use Comment - Amount & Last Used: frequent Smoking Status (MU): Current Some Day Smoker Type: Cigarettes Amount Used/How Often: 1/2PPD Length of Time of Smoking/Using Tobacco: 20 years Have You Smoked in the Last Year: Yes Review of Systems Negative: Chest Pain Negative: Shortness Of Breath Positive: Abdominal Pain, Other - No hematemesis. Genitourinary: Other - No blood in stool. All Other Systems Reviewed And Are Negative: Yes Physical Exam - Summary Physical Exam Summary: The patient is well-nourished and in mild distress. Alert and oriented. The skin is warm and skin color reflects adequate perfusion. Diaphoretic. HEENT: The head is normocephalic and atraumatic. The pupils are equal and reactive. The conjunctivae are clear and without drainage. Neck is supple with full range of motion and non-tender. Respiratory: Chest is non-tender. Lungs are clear to auscultation and breath sounds are symmetrical and equal. Cardiovascular: Heart is regular rate and rhythm. There is no murmur or rub auscultated. Abdomen: The abdomen is soft. Epigastric tenderness with guarding. Musculoskeletal: There is no back pain noted. Extremities are non-tender with full range of motion. Capillary refill in 3 seconds. Neurological: Patient is alert and oriented to person, place and time. The patient has symmetrical motor strength in all four extremities. Psychiatric: The patient has an appropriate affect and does not exhibit any anxiety or depression. Triage Information Reviewed: Yes Vital Signs On Initial Exam: Initial Vitals Temp Pulse Resp BP Pulse Ox 97.8 F 106 22 156/104 100 09/05/16 11:23 09/05/16 11:23 09/05/16 11:23 09/05/16 11:23 09/05/16 11:23 Vital Signs Reviewed: Yes - [place] Coma Scale Coma Scale Total: 15 Diagnostics - Vital Signs Vital Signs Temp Pulse Resp BP Pulse Ox 09/05/16 11:23 97.8 F 106 22 156/104 100 - Laboratory Lab Results: Lab Results 09/05/16 Range/Units 12:49 POC Glucose (mg/dL) 304 H (74-106) mg/dL Result Diagrams: 09/05/16 13:00 09/05/16 13:00 Diagnostic Studies Comment: Lactic acid: 2.2 Lab Statement: Any lab studies that have been ordered have been reviewed, and results considered in the medical decision making process. - Radiology Abd XR Radiology Interpretation Completed By: Radiologist - IMPRESSION: No free air or obstruction is noted. Re-Evaluation - Re-Evaluation First Eval Re-Evaluation Time: 14:35 Comment: Pain is still there, but improved. Nausea is gone. Pt will receive additional pain medication and will be given fluid via PO before re-evaluation. Second Eval Re-Evaluation Time: 15:18 Change: Improved Third Eval Re-Evaluation Time: 15:28 Comment: Pt still has some pain, but he looks better. Abdominal Pain Fem Course/Dx - Course Course Of Treatment: 36 y/o M presents with chronic diffuse abd pain since 0300 this morning. He states that pain does not radiate. He denies CP, SOB, blood in stool, or hematemesis. Pt received Insulin, fluids, Ativan, Reglan, Morphine, and Protonix in the ED course. XR shows, per radiology, IMPRESSION: No free air or obstruction is noted. Pt will be DC'd. - Diagnoses Differential Diagnosis/HQI/PQRI: Bowel Obstruction, Pancreatitis, Peptic Ulcer Disease, Other - gastroparesis Provider Diagnoses: Abdominal pain, Dehydration, Hyperglycemia, Gastroparesis due to DM Provider Diagnoses: (Ruled Out): Gastroptosis Discharge - Discharge Plan Condition: Stable Disposition: HOME Prescriptions: Metoclopramide TAB* [Reglan TAB*] 10 mg PO Q6H PRN #60 tab PRN Reason: nausea oxyCODONE/Acetamin 5/325 MG* [Percocet 5/325 TAB*] 1 tab PO Q6H PRN #20 tab MDD 4 PRN Reason: pain Patient Education Materials: Abdominal Pain (ED), Dehydration (ED), Diabetic Hyperglycemia (ED), Gastroparesis (ED) Referrals: Toby Edge MD [Primary Care Provider] - Additional Instructions: Please follow up with your primary care provider. The documentation as recorded by the Karuna deutsch Salem accurately reflects the service I personally performed and the decisions made by , John Mckenna MD.
== END 2016-09-05 16:46 | disposition home or self-care (01) ==
LOC: ED 11:19
DX: E11.43 Type 2 diabetes mellitus with diabetic autonomic (poly)neuropathy (principal); K31.84 Gastroparesis; R10.9 Unspecified abdominal pain; E86.0 Dehydration; R73.9 Hyperglycemia, unspecified
CPT/HCPCS: 36415; 74020; 80053; 82150; 82550; 82803; 83605; 83690; 85025; 86140; 96374; 96375; 99282; J2060; J2270; J2405

== ENCOUNTER → 2016-09-06 15:31 | Emergency (ER) | payer OTHER ==
[~2016-09-06 15:31] MED LIST: Metoclopramide IV* 5 MG/ML 2 ML VIAL IV ONE; NS 0.9% 1000 ML* 2,000 ML IV ONE; Pantoprazole IV* 40 MG IV ONE
[2016-09-06 21:32] LABS: Hematocrit 36 % (42-52); Hemoglobin 11.7 g/dl (14.0-18.0); Mean Corpuscular HGB Conc 33 g/dl (31-36); Mean Corpuscular Hemoglobin 27 pg (27-31); Mean Corpuscular Volume 83 fL (80-94); Mean Platelet Volume 8 um3 (7.4-10.4); Red Blood Count 4.28 10^6/ul (4.0-5.4); Red Cell Distribution Width 13 % (10.5-15); White Blood Count 16.3 10^3/ul (3.5-10.8)
[2016-09-06 21:47] LABS: Albumin 4.1 g/dL (3.2-5.2); BUN/Creatinine Ratio 12.4 (8-20); C Reactive Protein 1.42 mg/L (< 5.00); Calcium 9.6 mg/dL (8.6-10.3); EGFR African American 38.2 (>60); EGFR Non-African American 29.7 (>60); Globulin 3.5 g/dL (2-4); Potassium 3.2 mmol/L (3.5-5.0); Total Bilirubin 0.4 mg/dL (0.2-1.0); Total Protein 7.6 g/dL (6.4-8.9)
[2016-09-06 22:10] VITALS: BP 152/93
--- NOTE | 2016-09-06 22:55 | ED ---
Eva Sarkar Thomas, scribed for John Mckenna MD on 09/06/16 at 2247 . Abdominal Pain/Male - HPI Summary HPI Summary: Pt is a 36 y/o male presenting to the ED with abd pain. He was last a patient at [facility] yesterday when he had diffuse abd pain. He says that the pain is the same as yesterday. He additionally c/o vomiting, chills, and polyuria (earlier today). The patient denies diarrhea, recent BMs, and cough. He denies recent alcohol use. He was taken into custody at the detention yesterday and was unable to fill his prescription for pain medication. He has not eaten today and states that his blood sugar levels have been high. The patient does not have an insulin pump. - History of Current Complaint Chief Complaint: EDAbdPain Stated Complaint: ABD PAIN/NAUSEA,VOMITING Time Seen by Provider: 09/06/16 20:35 Hx Obtained From: Patient Onset/Duration: Still Present - from yesterday Timing: Constant Severity Currently: Moderate Pain Intensity: 7 Pain Scale Used: 0-10 Numeric Location: Diffuse Associated Signs And Symptoms: Positive: Vomiting, Other - POS: chills, polyuria ; NEG: recent BMs. Negative: Cough, Diarrhea - Allergies/Home Medications Allergies/Adverse Reactions: Allergies Allergy/AdvReac Type Severity Reaction Status Date / Time Gluten Meal Allergy Abdominal Verified 03/31/16 20:45 Pain PMH/Surg Hx/FS Hx/Imm Hx Previously Healthy: No Endocrine/Hematology History: Reports: Hx Diabetes - Type 1 Denies: Hx Anticoagulant Therapy, Hx Thyroid Disease Cardiovascular History: Denies: Hx Hypertension, Hx Pacemaker/ICD, Hx Peripheral Vascular Disease, Other Cardiovascular Problems/Disorders Respiratory History: Reports: Hx Pneumonia Denies: Hx Asthma, Hx Chronic Bronchitis, Hx Chronic Obstructive Pulmonary Disease (COPD), Hx Cystic Fibrosis, Hx Lung Cancer, Hx Pleural Effusion, Hx Pulmonary Edema, Hx Pulmonary Embolism, Hx Seasonal Allergies, Hx Sleep Apnea, Other Respiratory Problems/Disorders GI History: Reports: Hx Gastroesophageal Reflux Disease, Hx Gastrointestinal Bleed, Hx Ulcer, Other GI Disorders - Gastroparesis Denies: Hx Cirrhosis, Hx Crohn's Disease, Hx Diverticulosis, Hx Gall Bladder Disease, Hx Hiatal Hernia, Hx Irritable Bowel, Hx Jaundice, Hx Obstructive Bowel , Hx Ileostomy, Hx Pyloric Stenosis History: Reports: Other Problems/Disorders - chronic kidney disease Denies: Hx Kidney Stones, Hx Renal Disease Musculoskeletal History: Denies: Hx Arthritis, Hx Osteoporosis Sensory History: Reports: Hx Vision Problem Denies: Hx Cataracts, Hx Contacts or Glasses, Hx Eye Injury, Hx Eye Prosthesis, Hx Glaucoma, Hx Macular Degeneration, Hx Deafness, Hx Hearing Aid, Hx Hearing Problem, Other Sensory Impairments Opthamlomology History: Reports: Hx Vision Problem Denies: Hx Cataracts, Hx Contacts or Glasses, Hx Eye Injury, Hx Eye Prosthesis, Hx Glaucoma, Hx Macular Degeneration, Other Sensory Impairments Neurological History: Denies: Hx Dementia, Hx Headaches, Hx Seizures, Hx Transient Ischemic Attacks (TIA) Psychiatric History: Reports: Hx Anxiety, Hx Depression, Hx Bipolar Disorder, Hx Substance Abuse - Marijuana Denies: Hx Eating Disorder, Hx Panic Disorder, Hx Post Traumatic Stress Disorder, Hx Schizophrenia, Hx of Violent Episodes Against Others, Other Psychiatric Issues/Disorders - Cancer History Hx Chemotherapy: No Hx Radiation Therapy: No - Surgical History Hx Anesthesia Reactions: No - Immunization History Date of Tetanus Vaccine: Unk Date of Influenza Vaccine: None Infectious Disease History: Denies: Hx Hepatitis, Hx Human Immunodeficiency Virus (HIV), Hx of Known/ Suspected MRSA, Hx Shingles, Hx Tuberculosis, History Other Infectious Disease, Traveled Outside the [place] in Last 30 Days - Family History Known Family History: Negative: Cardiac Disease, Hypertension, Diabetes - Social History Alcohol Use: None Substance Use Type: Reports: Marijuana Substance Use Comment - Amount & Last Used: frequent Smoking Status (MU): Current Some Day Smoker Type: Cigarettes Amount Used/How Often: 1/2PPD Length of Time of Smoking/Using Tobacco: 20 years Have You Smoked in the Last Year: Yes Review of Systems Positive: Chills Negative: Cough Positive: Abdominal Pain - diffuse, Vomiting, Other - NEG: recent BMs. Negative : Diarrhea Positive: other - POS: polyuria All Other Systems Reviewed And Are Negative: Yes Physical Exam - Summary Physical Exam Summary: The patient is cachectic and in mild distress. He is not as sick as yesterday. The skin is warm and dry and skin color reflects adequate perfusion. Decreased skin turgor. HEENT: The head is normocephalic and atraumatic. The pupils are equal and reactive. The conjunctivae are clear and without drainage. Nares are patent and without drainage. Mouth reveals dry mucous membranes and the throat is without erythema and exudate. The external ears are intact. The ear canals are patent and without drainage. The tympanic membranes are intact. Neck is supple with full range of motion and non-tender. There are no carotid bruits. There is no neck vein distension. Respiratory: Chest is non-tender. Lungs are clear to auscultation and breath sounds are symmetrical and equal. Cardiovascular: Heart rate is tachycardic. Heart rhyhtm is regular. There is no murmur or rub auscultated. There is no peripheral edema and pulses are symmetrical and equal. Abdomen: Slight epigastric pain. The abdomen is soft and non-tender. There are normal bowel sounds heard in all four quadrants and there is no organomegaly palpated. Musculoskeletal: There is no back pain noted. Extremities are non-tender with full range of motion. There is good capillary refill. There is no peripheral edema or calf tenderness elicited. Neurological: Patient is alert and oriented to person, place and time. The patient has symmetrical motor strength in all four extremities. Cranial nerves are grossly intact. Deep tendon reflexes are symmetrical and equal in all four extremities. Psychiatric: The patient has an appropriate affect and does not exhibit any anxiety or depression. Triage Information Reviewed: Yes Vital Signs On Initial Exam: Initial Vitals Temp Pulse Resp BP Pulse Ox 98.8 F 114 22 132/82 100 09/06/16 15:42 09/06/16 15:42 09/06/16 15:42 09/06/16 15:42 09/06/16 15:42 Vital Signs Reviewed: Yes Diagnostics - Vital Signs Vital Signs Temp Pulse Resp BP Pulse Ox 09/06/16 16:54 98.8 F 102 22 130/82 98 09/06/16 15:42 98.8 F 114 22 132/82 100 - Laboratory Lab Results: Lab Results 09/06/16 09/06/16 09/06/16 Range/Units 21:20 21:20 21:20 WBC 16.3 H (3.5-10.8) 10^3/ul RBC 4.28 (4.0-5.4) 10^6/ul Hgb 11.7 L (14.0-18.0) g/dl Hct 36 L (42-52) % MCV 83 (80-94) fL MCH 27 (27-31) pg MCHC 33 (31-36) g/dl RDW 13 (10.5-15) % Plt Count 484 H (150-450) 10^3/ul MPV 8 (7.4-10.4) um3 Neut % (Auto) 75.7 (38-83) % Lymph % (Auto) 16.4 L (25-47) % Beaver % (Auto) 7.3 (1-9) % Eos % (Auto) 0.2 (0-6) % Baso % (Auto) 0.4 (0-2) % Absolute Neuts (auto) 12.3 H (1.5-7.7) 10^3/ul Absolute Lymphs (auto) 2.7 (1.0-4.8) 10^3/ul Absolute Monos (auto) 1.2 H (0-0.8) 10^3/ul Absolute Eos (auto) 0 (0-0.6) 10^3/ul Absolute Basos (auto) 0.1 (0-0.2) 10^3/ul Absolute Nucleated RBC 0.01 10^3/ul Nucleated RBC % 0.1 Sodium 134 (133-145) mmol/L Potassium 3.2 L (3.5-5.0) mmol/L Chloride 97 L (101-111) mmol/L Carbon Dioxide 25 (22-32) mmol/L Anion Gap 12 H (2-11) mmol/L BUN 31 H (6-24) mg/dL Creatinine 2.49 H (0.67-1.17) mg/dL Est GFR ( Amer) 38.2 (>60) Est GFR (Non-Af Amer) 29.7 (>60) BUN/Creatinine Ratio 12.4 (8-20) Glucose 54 L (70-100) mg/dL POC Glucose (mg/dL) (74-106) mg/dL Lactic Acid 0.8 (0.5-2.0) mmol/L Calcium 9.6 (8.6-10.3) mg/dL Total Bilirubin 0.40 (0.2-1.0) mg/dL AST 35 (13-39) U/L ALT 15 (7-52) U/L Alkaline Phosphatase 98 (34-104) U/L C-Reactive Protein 1.42 (< 5.00) mg/L Total Protein 7.6 (6.4-8.9) g/dL Albumin 4.1 (3.2-5.2) g/dL Globulin 3.5 (2-4) g/dL Albumin/Globulin Ratio 1.2 (1-3) 09/06/16 09/06/16 Range/Units 21:27 22:07 WBC (3.5-10.8) 10^3/ul RBC (4.0-5.4) 10^6/ul Hgb (14.0-18.0) g/dl Hct (42-52) % MCV (80-94) fL MCH (27-31) pg MCHC (31-36) g/dl RDW (10.5-15) % Plt Count (150-450) 10^3/ul MPV (7.4-10.4) um3 Neut % (Auto) (38-83) % Lymph % (Auto) (25-47) % Beaver % (Auto) (1-9) % Eos % (Auto) (0-6) % Baso % (Auto) (0-2) % Absolute Neuts (auto) (1.5-7.7) 10^3/ul Absolute Lymphs (auto) (1.0-4.8) 10^3/ul Absolute Monos (auto) (0-0.8) 10^3/ul Absolute Eos (auto) (0-0.6) 10^3/ul Absolute Basos (auto) (0-0.2) 10^3/ul Absolute Nucleated RBC 10^3/ul Nucleated RBC % Sodium (133-145) mmol/L Potassium (3.5-5.0) mmol/L Chloride (101-111) mmol/L Carbon Dioxide (22-32) mmol/L Anion Gap (2-11) mmol/L BUN (6-24) mg/dL Creatinine (0.67-1.17) mg/dL Est GFR ( Amer) (>60) Est GFR (Non-Af Amer) (>60) BUN/Creatinine Ratio (8-20) Glucose (70-100) mg/dL POC Glucose (mg/dL) 64 L 123 H (74-106) mg/dL Lactic Acid (0.5-2.0) mmol/L Calcium (8.6-10.3) mg/dL Total Bilirubin (0.2-1.0) mg/dL AST (13-39) U/L ALT (7-52) U/L Alkaline Phosphatase (34-104) U/L C-Reactive Protein (< 5.00) mg/L Total Protein (6.4-8.9) g/dL Albumin (3.2-5.2) g/dL Globulin (2-4) g/dL Albumin/Globulin Ratio (1-3) Result Diagrams: 09/06/16 21:20 09/06/16 21:20 Lab Statement: Any lab studies that have been ordered have been reviewed, and results considered in the medical decision making process. Re-Evaluation - Re-Evaluation First Eval Re-Evaluation Time: 22:45 Change: Improved Comment: Pt is doing much better. Abdominal Pain Fem Course/Dx - Course Assessment/Plan: Pt is a 36 y/o male presenting to the ED with abd pain. He was last a patient at [facility] yesterday when he had diffuse abd pain. He says that the pain is the same as yesterday. He additionally c/o vomiting, chills, and polyuria (earlier today). The patient denies diarrhea, recent BMs, and cough. He denies recent alcohol use. He was taken into custody at the detention yesterday and was unable to fill his prescription for pain medication. He has not eaten today and states that his blood sugar levels have been high. The patient does not have an insulin pump. Glucose 54, Potassium 3.2, Chloride 97, creatinine 2.49. The patient was stable and discharged to home. The patient was diagnosed with dehydration, noncompliance with diabetes treatment, and hypoglycemia. - Diagnoses Differential Diagnosis/HQI/PQRI: Other - dehydration, hypoglycemia, type 1 DM with non-compliance Provider Diagnoses: Dehydration, Noncompliance with diabetes treatment, Hypoglycemia Discharge - Discharge Plan Condition: Stable Disposition: HOME Patient Education Materials: Dehydration (ED), Hypoglycemia in a Person with Diabetes (ED) Referrals: Toby Edge MD [Primary Care Provider] - 3 Days The documentation as recorded by the Eva deutsch Thomas accurately reflects the service I personally performed and the decisions made by me, John Mckenna MD.
== END | disposition home or self-care (01) ==
LOC: ED 15:31
DX: E10.649 Type 1 diabetes mellitus with hypoglycemia without coma (principal); E86.0 Dehydration; R10.9 Unspecified abdominal pain; R11.10 Vomiting, unspecified; Z72.0 Tobacco use
CPT/HCPCS: 36415; 80053; 83605; 85025; 86140; 99283

== ENCOUNTER 2016-09-24 14:19 | Emergency (ER) | payer OTHER ==
[2016-09-24] MEDS ORDERED: Al Hydrox/Mg Hydrox/Simet LIQ* 30 ML UDC PO ONE ×2 (15:11→17:37)
[2016-09-24] MEDS ORDERED: Ondansetron INJ* 2 MG/ML VIAL IV ONE (15:11)
[2016-09-24] MEDS ORDERED: NS 0.9% 1000 ML* 1,000 ML IV ONE (15:12)
[2016-09-24 15:56] LABS: Hematocrit 37 % (42-52); Hemoglobin 11.9 g/dl (14.0-18.0); Mean Corpuscular HGB Conc 33 g/dl (31-36); Mean Corpuscular Hemoglobin 28 pg (27-31); Mean Corpuscular Volume 87 fL (80-94); Mean Platelet Volume 9 um3 (7.4-10.4); Red Blood Count 4.22 10^6/ul (4.0-5.4); Red Cell Distribution Width 13 % (10.5-15); White Blood Count 14.3 10^3/ul (3.5-10.8)
[2016-09-24 15:58] LABS: Urine Bilirubin Negative (Negative); Urine Glucose 3+(>=500 mg/dL) (Negative); Urine Nitrite Negative (Negative)
[2016-09-24 16:11] LABS: Urine Sperm Present (Absent)
[2016-09-24 16:12] LABS: ALT 36 U/L (7-52); AST 25 U/L (13-39); Albumin 4.2 g/dL (3.2-5.2); Alkaline Phosphatase 106 U/L (34-104); Anion Gap 14 mmol/L (2-11); BUN/Creatinine Ratio 8.7 (8-20); Blood Urea Nitrogen 18 mg/dL (6-24); C Reactive Protein < 1.00 mg/L (< 5.00); CO2 Carbon Dioxide 23 mmol/L (22-32); Calcium 9.9 mg/dL (8.6-10.3); Chloride 94 mmol/L (101-111); EGFR Non-African American 36.5 (>60); Globulin 3.6 g/dL (2-4); Glucose 463 mg/dL (70-100); Lipase 52 U/L (11.0-82.0); Potassium 3.9 mmol/L (3.5-5.0); Sodium 131 mmol/L (133-145); Total Protein 7.8 g/dL (6.4-8.9)
[2016-09-24] MEDS ORDERED: Lidocaine 2% VISCOUS* 15 ML UDC PO ONE (17:37)
[2016-09-24] MEDS ORDERED: Morphine INJ* 4 MG/ML 1 ML SYRINGE IV ONE (17:37)
[2016-09-24] MEDS ORDERED: Metoclopramide IV* 5 MG/ML 2 ML VIAL IV SLOW PU ONE (17:37)
[2016-09-24] MEDS: NS 0.9% 1000 ML* 2,000 ML IV ONE ×2 (18:02→19:30)
[2016-09-24 19:49] LABS: Venous Bicarbonate HCO3 22.4 mmol/L (24-28)
[2016-09-24] MEDS ORDERED: Insulin REGULAR(*) 1 UNITS UNIT IV PUSH ONE (20:36)
[2016-09-24] MEDS ORDERED: Insulin REGULAR(*) 1 UNITS UNIT SUBCUT ONE (20:37)
[2016-09-24] MEDS ORDERED: oxyCODONE/Acetamin 5/325 MG* TAB PO ONE ×2 (21:05→21:43)
--- NOTE | 2016-09-24 21:16 | RAD ---
HISTORY: Epigastric pain COMPARISONS: None TECHNIQUE: Multiple transverse and longitudinal ultrasound images were obtained of the right upper quadrant. FINDINGS: LIVER: The liver is normal in dimensions and echogenicity. Normal hepatic and portal venous blood flow is duplicated with color flow imaging. There is no gross intrahepatic biliary duct dilatation. GALLBLADDER AND EXTRAHEPATIC BILIARY DUCT: The gallbladder is normal in appearance without intraluminal stones or other soft tissue masses. There is no pericholecystic fluid or gallbladder wall thickening. The common bile duct measures a maximum diameter of . PANCREAS: The portions of the pancreas not obscured by bowel gas are normal in appearance. RIGHT KIDNEY: The right kidney is normal in size, morphology and echogenicity. AORTA AND IVC: The visualized portions are normal in appearance and not pathologically dilated. IMPRESSION: Normal ultrasound of the right upper quadrant.
[2016-09-24 22:09] VITALS: BP 156/87
--- NOTE | 2016-10-01 10:31 | ED ---
I, Conner,Lori, scribed for Abelino Sepulveda MD on 09/24/16 at 1739 . Abdominal Pain/Male - HPI Summary HPI Summary: This 36 y/o male presents to ED for epigastric abd pain since 0400 AM. Positive n/v. Negative fever, chills, diarrhea, or blood in vomit. Pt took Reglan and Zofran TEAM PSYCHOLOGIST without much relief. PMHx is significant for gastroparesis, poorly controlled DM, GERD, erosive esophagitis, and celiac disease. Pt states that he has been complaint to insulin and has taken his morning dose as instructed. He was previously admitted for gastroparesis. Pt is occasional drinker. - History of Current Complaint Chief Complaint: EDAbdPain Stated Complaint: ABD PAIN Time Seen by Provider: 09/24/16 15:11 Hx Obtained From: Patient, Medical Records Onset/Duration: Still Present Timing: Constant Pain Intensity: 6 Pain Scale Used: 0-10 Numeric Location: Epigastric Radiates: No Character: Dull, Burning Aggravating Factor(s): Nothing Alleviating Factor(s): Nothing Associated Signs And Symptoms: Positive: Nausea, Vomiting. Negative: Diaphoresis, Fever, Diarrhea - Allergies/Home Medications Allergies/Adverse Reactions: Allergies Allergy/AdvReac Type Severity Reaction Status Date / Time Gluten Meal Allergy Abdominal Verified 09/24/16 14:28 Pain PMH/Surg Hx/FS Hx/Imm Hx Endocrine/Hematology History: Reports: Hx Diabetes - Type 1 Denies: Hx Anticoagulant Therapy, Hx Thyroid Disease Cardiovascular History: Denies: Hx Hypertension, Hx Pacemaker/ICD, Hx Peripheral Vascular Disease, Other Cardiovascular Problems/Disorders Respiratory History: Reports: Hx Pneumonia Denies: Hx Asthma, Hx Chronic Bronchitis, Hx Chronic Obstructive Pulmonary Disease (COPD), Hx Cystic Fibrosis, Hx Lung Cancer, Hx Pleural Effusion, Hx Pulmonary Edema, Hx Pulmonary Embolism, Hx Seasonal Allergies, Hx Sleep Apnea, Other Respiratory Problems/Disorders GI History: Reports: Hx Gastroesophageal Reflux Disease, Hx Gastrointestinal Bleed, Hx Ulcer, Other GI Disorders - Gastroparesis Denies: Hx Cirrhosis, Hx Crohn's Disease, Hx Diverticulosis, Hx Gall Bladder Disease, Hx Hiatal Hernia, Hx Irritable Bowel, Hx Jaundice, Hx Obstructive Bowel , Hx Ileostomy, Hx Pyloric Stenosis History: Reports: Other Problems/Disorders - chronic kidney disease Denies: Hx Kidney Stones, Hx Renal Disease Musculoskeletal History: Denies: Hx Arthritis, Hx Osteoporosis Sensory History: Reports: Hx Vision Problem Denies: Hx Cataracts, Hx Contacts or Glasses, Hx Eye Injury, Hx Eye Prosthesis, Hx Glaucoma, Hx Macular Degeneration, Hx Deafness, Hx Hearing Aid, Hx Hearing Problem, Other Sensory Impairments Opthamlomology History: Reports: Hx Vision Problem Denies: Hx Cataracts, Hx Contacts or Glasses, Hx Eye Injury, Hx Eye Prosthesis, Hx Glaucoma, Hx Macular Degeneration, Other Sensory Impairments Neurological History: Denies: Hx Dementia, Hx Headaches, Hx Seizures, Hx Transient Ischemic Attacks (TIA) Psychiatric History: Reports: Hx Anxiety, Hx Depression, Hx Bipolar Disorder, Hx Substance Abuse - Marijuana Denies: Hx Eating Disorder, Hx Panic Disorder, Hx Post Traumatic Stress Disorder, Hx Schizophrenia, Hx of Violent Episodes Against Others, Other Psychiatric Issues/Disorders - Cancer History Hx Chemotherapy: No Hx Radiation Therapy: No - Surgical History Hx Anesthesia Reactions: No - Immunization History Date of Tetanus Vaccine: Unk Date of Influenza Vaccine: None Infectious Disease History: No Infectious Disease History: Denies: Hx Hepatitis, Hx Human Immunodeficiency Virus (HIV), Hx of Known/ Suspected MRSA, Hx Shingles, Hx Tuberculosis, History Other Infectious Disease, Traveled Outside the [place] in Last 30 Days - Family History Known Family History: Negative: Cardiac Disease, Hypertension, Diabetes - Social History Alcohol Use: None Substance Use Type: Reports: Marijuana Substance Use Comment - Amount & Last Used: frequent Hx Tobacco Use: Yes Smoking Status (MU): Light Every Day Tobacco Smoker Type: Cigarettes Amount Used/How Often: 1/2PPD Length of Time of Smoking/Using Tobacco: 20 years Have You Smoked in the Last Year: Yes Review of Systems Negative: Fever, Chills, Skin Diaphoresis Negative: Erythema Negative: Sore Throat Negative: Chest Pain Negative: Shortness Of Breath, Cough Positive: Abdominal Pain - epigastric, Vomiting, Nausea. Negative: Diarrhea Negative: dysuria, hematuria Negative: Myalgia, Edema Negative: Rash Neurological: Other - Negative dizziness All Other Systems Reviewed And Are Negative: Yes Physical Exam - Summary Physical Exam Summary: Constitutional: Well-developed, Well-nourished, Alert. (-) Distressed Skin: Warm, Dry HENT: Normocephalic; Atraumatic Eyes: Conjunctiva normal Neck: Musculoskeletal ROM normal neck. (-) JVD, (-) Stridor, (-) Tracheal deviation Cardio: Rhythm regular, rate normal, Heart sounds normal; Intact distal pulses; The pedal pulses are 2+ and symmetric. Radial pulses are 2+ and symmetric. (-) Murmur Pulmonary/Chest wall: Effort normal. (-) Respiratory distress, (-) Wheezes, (-) Rales Abd: Soft, (+) Epigastric tenderness, (-) Distension, (-) Guarding, (-) Rebound Musculoskeletal: (-) Edema Lymph: (-) Cervical adenopathy Neuro: Alert, Oriented x3 Psych: Mood and affect Normal Triage Information Reviewed: Yes Vital Signs On Initial Exam: Initial Vitals Temp Pulse Resp BP Pulse Ox 97.5 F 113 20 178/101 100 09/24/16 14:30 09/24/16 14:30 09/24/16 14:30 09/24/16 14:30 09/24/16 14:30 Vital Signs Reviewed: Yes Diagnostics - Vital Signs Vital Signs Temp Pulse Resp BP Pulse Ox 09/24/16 16:00 87 17 95 09/24/16 15:30 118 175/94 100 09/24/16 15:03 99 198/102 95 09/24/16 14:30 97.5 F 113 20 178/101 100 - Laboratory Lab Results: Lab Results 09/24/16 09/24/16 09/24/16 Range/Units 15:39 15:45 15:45 WBC 14.3 H (3.5-10.8) 10^3/ul RBC 4.22 (4.0-5.4) 10^6/ul Hgb 11.9 L (14.0-18.0) g/dl Hct 37 L (42-52) % MCV 87 (80-94) fL MCH 28 (27-31) pg MCHC 33 (31-36) g/dl RDW 13 (10.5-15) % Plt Count 419 (150-450) 10^3/ul MPV 9 (7.4-10.4) um3 Neut % (Auto) 94.1 H (38-83) % Lymph % (Auto) 4.1 L (25-47) % Gillespie % (Auto) 1.2 (1-9) % Eos % (Auto) 0.1 (0-6) % Baso % (Auto) 0.5 (0-2) % Absolute Neuts (auto) 13.4 H (1.5-7.7) 10^3/ul Absolute Lymphs (auto) 0.6 L (1.0-4.8) 10^3/ul Absolute Monos (auto) 0.2 (0-0.8) 10^3/ul Absolute Eos (auto) 0 (0-0.6) 10^3/ul Absolute Basos (auto) 0.1 (0-0.2) 10^3/ul Absolute Nucleated RBC 0 10^3/ul Nucleated RBC % 0 Sodium 131 L (133-145) mmol/L Potassium 3.9 (3.5-5.0) mmol/L Chloride 94 L (101-111) mmol/L Carbon Dioxide 23 (22-32) mmol/L Anion Gap 14 H (2-11) mmol/L BUN 18 (6-24) mg/dL Creatinine 2.08 H (0.67-1.17) mg/dL Est GFR ( Amer) 47.0 (>60) Est GFR (Non-Af Amer) 36.5 (>60) BUN/Creatinine Ratio 8.7 (8-20) Glucose 463 H (70-100) mg/dL Lactic Acid (0.5-2.0) mmol/L Calcium 9.9 (8.6-10.3) mg/dL Total Bilirubin 0.40 (0.2-1.0) mg/dL AST 25 (13-39) U/L ALT 36 (7-52) U/L Alkaline Phosphatase 106 H (34-104) U/L C-Reactive Protein < 1.00 (< 5.00) mg/L Total Protein 7.8 (6.4-8.9) g/dL Albumin 4.2 (3.2-5.2) g/dL Globulin 3.6 (2-4) g/dL Albumin/Globulin Ratio 1.2 (1-3) Lipase 52 (11.0-82.0) U/L Urine Color Straw Urine Appearance Clear Urine pH 7.0 (5-9) Ur Specific Huntington 1.020 (1.010-1.030) Urine Protein 3+(>=500 mg/dl) H (Negative) Urine Ketones Negative (Negative) Urine Blood Negative (Negative) Urine Nitrate Negative (Negative) Urine Bilirubin Negative (Negative) Urine Urobilinogen Negative (Negative) Ur Leukocyte Esterase Negative (Negative) Urine RBC (Auto) 1+(3-5/hpf) H (Absent) Urine Sperm Present H (Absent) Urine Glucose 3+(>=500 mg/dl) H (Negative) 09/24/16 Range/Units 15:45 WBC (3.5-10.8) 10^3/ul RBC (4.0-5.4) 10^6/ul Hgb (14.0-18.0) g/dl Hct (42-52) % MCV (80-94) fL MCH (27-31) pg MCHC (31-36) g/dl RDW (10.5-15) % Plt Count (150-450) 10^3/ul MPV (7.4-10.4) um3 Neut % (Auto) (38-83) % Lymph % (Auto) (25-47) % Gillespie % (Auto) (1-9) % Eos % (Auto) (0-6) % Baso % (Auto) (0-2) % Absolute Neuts (auto) (1.5-7.7) 10^3/ul Absolute Lymphs (auto) (1.0-4.8) 10^3/ul Absolute Monos (auto) (0-0.8) 10^3/ul Absolute Eos (auto) (0-0.6) 10^3/ul Absolute Basos (auto) (0-0.2) 10^3/ul Absolute Nucleated RBC 10^3/ul Nucleated RBC % Sodium (133-145) mmol/L Potassium (3.5-5.0) mmol/L Chloride (101-111) mmol/L Carbon Dioxide (22-32) mmol/L Anion Gap (2-11) mmol/L BUN (6-24) mg/dL Creatinine (0.67-1.17) mg/dL Est GFR ( Amer) (>60) Est GFR (Non-Af Amer) (>60) BUN/Creatinine Ratio (8-20) Glucose (70-100) mg/dL Lactic Acid 4.7 H* (0.5-2.0) mmol/L Calcium (8.6-10.3) mg/dL Total Bilirubin (0.2-1.0) mg/dL AST (13-39) U/L ALT (7-52) U/L Alkaline Phosphatase (34-104) U/L C-Reactive Protein (< 5.00) mg/L Total Protein (6.4-8.9) g/dL Albumin (3.2-5.2) g/dL Globulin (2-4) g/dL Albumin/Globulin Ratio (1-3) Lipase (11.0-82.0) U/L Urine Color Urine Appearance Urine pH (5-9) Ur Specific Huntington (1.010-1.030) Urine Protein (Negative) Urine Ketones (Negative) Urine Blood (Negative) Urine Nitrate (Negative) Urine Bilirubin (Negative) Urine Urobilinogen (Negative) Ur Leukocyte Esterase (Negative) Urine RBC (Auto) (Absent) Urine Sperm (Absent) Urine Glucose (Negative) Result Diagrams: 09/24/16 15:45 09/24/16 15:45 Lab Statement: Any lab studies that have been ordered have been reviewed, and results considered in the medical decision making process. - Additional Comments Diagnostic Additional Comments: US Gallbladder -- nml US of RUQ Re-Evaluation - Re-Evaluation First Eval Re-Evaluation Time: 19:21 Comment: Pt is hyperventilating and tachycardic. Second Eval Re-Evaluation Time: 21:06 Change: Unchanged Comment: MD in room to re-evaluate pt. Pt still reports 5/10 pain. He has not vomited as of lately. Third Eval Re-Evaluation Time: 21:44 Change: Unchanged Comment: Pt is resting comfortably in room, and exhibits hyperventilation when MD is in room. Pt agrees to discharge with pain medication, and declined the admission when offered. Abdominal Pain Fem Course/Dx - Course Assessment/Plan: This 36 y/o male presents to ED for epigastric pain since 0400 AM this morning. Positive n/v. PMHx is significant for gastroparesis, erosive esophagitis, GERD, and poorly controlled DM. Pt reports taking insulin as instructed this morning. Blood work indicates blood glucose of 395. Repeat POC glucose indicates 281 at 2204 PM. UA indicates 3+ glucose. Pt is noted to be resting comfortably in room alone and hyperventilating when MD is in room. US gallbladder is indicated normal, and pt agrees to be discharged with pain medications. - Diagnoses Provider Diagnoses: Gastroparesis, Hyperglycemia Discharge - Discharge Plan Condition: Stable Disposition: HOME Prescriptions: Ondansetron ODT TAB* [Zofran 4 MG Odt TAB*] 4 mg PO Q8H PRN #10 tab.odt PRN Reason: Nausea/Vomiting oxyCODONE/Acetamin 5/325 MG* [Percocet 5/325 TAB*] 1 tab PO Q6H PRN #10 tab MDD 4 PRN Reason: Pain - Moderate To Severe Patient Education Materials: Oxycodone/Acetaminophen (By mouth), Ondansetron ( By mouth), Diabetic Hyperglycemia (ED), Gastroparesis (ED) Referrals: Toby Edge MD [Primary Care Provider] - 1 Day Additional Instructions: Increase your insulin dosage by 5 unit. The documentation as recorded by the Conner deutsch Soohyun accurately reflects the service I personally performed and the decisions made by Derick mccarthy Jerry, MD.
== END 2016-09-24 22:35 | disposition home or self-care (01) ==
LOC: ED 14:19
DX: E10.65 Type 1 diabetes mellitus with hyperglycemia (principal); E10.43 Type 1 diabetes mellitus with diabetic autonomic (poly)neuropathy; K31.84 Gastroparesis; Z79.4 Long term (current) use of insulin; N18.9 Chronic kidney disease, unspecified; F17.210 Nicotine dependence, cigarettes, uncomplicated
CPT/HCPCS: 36415; 76705; 80053; 81003; 81015; 82803; 83605; 83690; 85025; 86140; 96361; 96374; 96375; 99283; A9270-GY; J2270; J2405

== ENCOUNTER 2016-11-25 07:52 | Emergency (ER) | payer OTHER ==
[2016-11-25 08:27] LABS: Hematocrit 36 % (42-52); Hemoglobin 12.2 g/dl (14.0-18.0); Mean Corpuscular HGB Conc 34 g/dl (31-36); Mean Corpuscular Hemoglobin 29 pg (27-31); Mean Corpuscular Volume 86 fL (80-94); Mean Platelet Volume 8 um3 (7.4-10.4); Red Blood Count 4.18 10^6/ul (4.0-5.4); Red Cell Distribution Width 13 % (10.5-15); White Blood Count 8.5 10^3/ul (3.5-10.8)
[2016-11-25] MEDS: NS 0.9% 1000 ML* 2,000 ML IV ONE ×2 (08:27→08:36)
[2016-11-25] MEDS ORDERED: Ondansetron INJ* 2 MG/ML VIAL IV ONE (08:28)
[2016-11-25] MEDS ORDERED: LORazepam INJ* 2 MG/ML 1 ML VIAL IV ONE ×2 (08:28→12:56)
[2016-11-25] MEDS ORDERED: Pantoprazole IV* 40 MG IV ONE (08:28)
[2016-11-25 08:43] LABS: ALT 14 U/L (7-52); AST 18 U/L (13-39); Albumin 4.3 g/dL (3.2-5.2); Alkaline Phosphatase 95 U/L (34-104); Anion Gap 8 mmol/L (2-11); BUN/Creatinine Ratio 10.1 (8-20); Blood Urea Nitrogen 21 mg/dL (6-24); C Reactive Protein < 1.00 mg/L (< 5.00); CO2 Carbon Dioxide 26 mmol/L (22-32); Chloride 93 mmol/L (101-111); EGFR Non-African American 36.5 (>60); Glucose 394 mg/dL (70-100); Lipase 17 U/L (11.0-82.0); Potassium 4.4 mmol/L (3.5-5.0); Sodium 127 mmol/L (133-145); Total Protein 7.3 g/dL (6.4-8.9)
[2016-11-25] MEDS ORDERED: Metoclopramide IV* 5 MG/ML 2 ML VIAL IV SLOW PU ONE ×2 (09:26→12:56)
[2016-11-25] MEDS ORDERED: Morphine INJ* 4 MG/ML 1 ML CARPUJECT IV ONE ×3 (09:26→12:56)
[2016-11-25] MEDS ORDERED: NS 0.9% 1000 ML* 1,000 ML IV ONE ×2 (11:53→13:13)
[2016-11-25] MEDS ORDERED: Lidocaine 2% VISCOUS* 15 ML UDC PO ONE (12:57)
[2016-11-25] MEDS ORDERED: Al Hydrox/Mg Hydrox/Simet LIQ* 30 ML UDC PO ONE (12:57)
--- NOTE | 2016-11-25 14:26 | ED ---
Ca Sarkar Edward, scribed for Abdullahi Sams MD on 11/25/16 at 0802 . Abdominal Pain/Male - HPI Summary HPI Summary: 26 y/o male presents to the ED c/o severe ABD pain starting two days ago. The pain is located in epigastric region. Pain is rated 10/10 in severity. Associated sx: N/V, which has become better this morning. Denies CP, SOB. Symptoms not alleviated with xanax, seroquil and tylenol. Pt is alleviated with marijuana. Denies previous SHx. PMHx GERD. - History of Current Complaint Chief Complaint: EDAbdPain Stated Complaint: ABDOM PAIN Hx Obtained From: Patient Onset/Duration: Lasting Days, Still Present Severity Currently: Severe Pain Intensity: 10 Pain Scale Used: 0-10 Numeric Location: Epigastric Associated Signs And Symptoms: Positive: Nausea, Vomiting - Allergies/Home Medications Allergies/Adverse Reactions: Allergies Allergy/AdvReac Type Severity Reaction Status Date / Time Gluten Meal Allergy Abdominal Verified 09/24/16 14:28 Pain PMH/Surg Hx/FS Hx/Imm Hx Previously Healthy: No Endocrine/Hematology History: Reports: Hx Diabetes - Type 1 Denies: Hx Anticoagulant Therapy, Hx Thyroid Disease Cardiovascular History: Denies: Hx Hypertension, Hx Pacemaker/ICD, Hx Peripheral Vascular Disease, Other Cardiovascular Problems/Disorders Respiratory History: Reports: Hx Pneumonia Denies: Hx Asthma, Hx Chronic Bronchitis, Hx Chronic Obstructive Pulmonary Disease (COPD), Hx Cystic Fibrosis, Hx Lung Cancer, Hx Pleural Effusion, Hx Pulmonary Edema, Hx Pulmonary Embolism, Hx Seasonal Allergies, Hx Sleep Apnea, Other Respiratory Problems/Disorders GI History: Reports: Hx Gastroesophageal Reflux Disease, Hx Gastrointestinal Bleed, Hx Ulcer, Other GI Disorders - Gastroparesis Denies: Hx Cirrhosis, Hx Crohn's Disease, Hx Diverticulosis, Hx Gall Bladder Disease, Hx Hiatal Hernia, Hx Irritable Bowel, Hx Jaundice, Hx Obstructive Bowel , Hx Ileostomy, Hx Pyloric Stenosis History: Reports: Other Problems/Disorders - chronic kidney disease Denies: Hx Kidney Stones, Hx Renal Disease Musculoskeletal History: Denies: Hx Arthritis, Hx Osteoporosis Sensory History: Reports: Hx Vision Problem Denies: Hx Cataracts, Hx Contacts or Glasses, Hx Eye Injury, Hx Eye Prosthesis, Hx Glaucoma, Hx Macular Degeneration, Hx Deafness, Hx Hearing Aid, Hx Hearing Problem, Other Sensory Impairments Opthamlomology History: Reports: Hx Vision Problem Denies: Hx Cataracts, Hx Contacts or Glasses, Hx Eye Injury, Hx Eye Prosthesis, Hx Glaucoma, Hx Macular Degeneration, Other Sensory Impairments Neurological History: Denies: Hx Dementia, Hx Headaches, Hx Seizures, Hx Transient Ischemic Attacks (TIA) Psychiatric History: Reports: Hx Anxiety, Hx Depression, Hx Bipolar Disorder, Hx Substance Abuse - Marijuana Denies: Hx Eating Disorder, Hx Panic Disorder, Hx Post Traumatic Stress Disorder, Hx Schizophrenia, Hx of Violent Episodes Against Others, Other Psychiatric Issues/Disorders - Cancer History Hx Chemotherapy: No Hx Radiation Therapy: No - Surgical History Hx Anesthesia Reactions: No - Immunization History Date of Tetanus Vaccine: Unk Date of Influenza Vaccine: None Infectious Disease History: No Infectious Disease History: Denies: Hx Hepatitis, Hx Human Immunodeficiency Virus (HIV), Hx of Known/ Suspected MRSA, Hx Shingles, Hx Tuberculosis, History Other Infectious Disease, Traveled Outside the [place] in Last 30 Days - Family History Known Family History: Negative: Cardiac Disease, Hypertension, Diabetes - Social History Alcohol Use: None Hx Substance Use: Yes Substance Use Type: Reports: Marijuana Substance Use Comment - Amount & Last Used: frequent Hx Tobacco Use: Yes Smoking Status (MU): Light Every Day Tobacco Smoker Type: Cigarettes Amount Used/How Often: 1/2PPD Length of Time of Smoking/Using Tobacco: 20 years Have You Smoked in the Last Year: Yes Review of Systems Constitutional: Negative Eyes: Negative ENT: Negative Cardiovascular: Negative Respiratory: Negative Positive: Abdominal Pain, Vomiting, Nausea Genitourinary: Negative Musculoskeletal: Negative Skin: Negative Neurological: Negative Psychological: Normal All Other Systems Reviewed And Are Negative: Yes Physical Exam Triage Information Reviewed: Yes Vital Signs On Initial Exam: Initial Vitals Temp Pulse Resp BP Pulse Ox 98.8 F 101 22 168/104 100 11/25/16 07:56 11/25/16 07:56 11/25/16 07:56 11/25/16 07:56 11/25/16 07:56 Vital Signs Reviewed: Yes Appearance: Positive: Well-Appearing, Pain Distress - Mild Skin: Positive: Warm, Skin Color Reflects Adequate Perfusion, Dry Head/Face: Positive: Normal Head/Face Inspection Eyes: Positive: EOMI, SARAHY ENT: Positive: Other - Oral mucosa dry Neck: Positive: Supple, Nontender Respiratory/Lung Sounds: Positive: Clear to Auscultation, Breath Sounds Present Cardiovascular: Positive: RRR Abdomen Description: Positive: Soft, Other: - Tender @ epigastrium Bowel Sounds: Positive: Hypoactive Musculoskeletal: Positive: Normal, Strength/ROM Intact Neurological: Positive: Normal, Sensory/Motor Intact, Alert, Oriented to Person Place, Time Psychiatric: Positive: Affect/Mood Appropriate Diagnostics - Vital Signs Vital Signs Temp Pulse Resp BP Pulse Ox 11/25/16 07:56 98.8 F 101 22 168/104 100 - Laboratory Lab Results: Lab Results 11/25/16 11/25/16 11/25/16 Range/Units 08:03 08:17 08:17 WBC 8.5 (3.5-10.8) 10^3/ul RBC 4.18 (4.0-5.4) 10^6/ul Hgb 12.2 L (14.0-18.0) g/dl Hct 36 L (42-52) % MCV 86 (80-94) fL MCH 29 (27-31) pg MCHC 34 (31-36) g/dl RDW 13 (10.5-15) % Plt Count 414 (150-450) 10^3/ul MPV 8 (7.4-10.4) um3 Neut % (Auto) 80.8 (38-83) % Lymph % (Auto) 12.2 L (25-47) % Polk % (Auto) 4.5 (1-9) % Eos % (Auto) 1.7 (0-6) % Baso % (Auto) 0.8 (0-2) % Absolute Neuts (auto) 6.8 (1.5-7.7) 10^3/ul Absolute Lymphs (auto) 1.0 (1.0-4.8) 10^3/ul Absolute Monos (auto) 0.4 (0-0.8) 10^3/ul Absolute Eos (auto) 0.1 (0-0.6) 10^3/ul Absolute Basos (auto) 0.1 (0-0.2) 10^3/ul Absolute Nucleated RBC 0 10^3/ul Nucleated RBC % 0 Sodium 127 L (133-145) mmol/L Potassium 4.4 (3.5-5.0) mmol/L Chloride 93 L (101-111) mmol/L Carbon Dioxide 26 (22-32) mmol/L Anion Gap 8 (2-11) mmol/L BUN 21 (6-24) mg/dL Creatinine 2.08 H (0.67-1.17) mg/dL Est GFR ( Amer) 47.0 (>60) Est GFR (Non-Af Amer) 36.5 (>60) BUN/Creatinine Ratio 10.1 (8-20) Glucose 394 H (70-100) mg/dL POC Glucose (mg/dL) 376 H (70-100) mg/dL Lactic Acid (0.5-2.0) mmol/L Calcium 10.0 (8.6-10.3) mg/dL Total Bilirubin 0.40 (0.2-1.0) mg/dL AST 18 (13-39) U/L ALT 14 (7-52) U/L Alkaline Phosphatase 95 (34-104) U/L C-Reactive Protein < 1.00 (< 5.00) mg/L Total Protein 7.3 (6.4-8.9) g/dL Albumin 4.3 (3.2-5.2) g/dL Globulin 3.0 (2-4) g/dL Albumin/Globulin Ratio 1.4 (1-3) Lipase 17 (11.0-82.0) U/L 11/25/16 11/25/16 Range/Units 08:17 11:58 WBC (3.5-10.8) 10^3/ul RBC (4.0-5.4) 10^6/ul Hgb (14.0-18.0) g/dl Hct (42-52) % MCV (80-94) fL MCH (27-31) pg MCHC (31-36) g/dl RDW (10.5-15) % Plt Count (150-450) 10^3/ul MPV (7.4-10.4) um3 Neut % (Auto) (38-83) % Lymph % (Auto) (25-47) % Polk % (Auto) (1-9) % Eos % (Auto) (0-6) % Baso % (Auto) (0-2) % Absolute Neuts (auto) (1.5-7.7) 10^3/ul Absolute Lymphs (auto) (1.0-4.8) 10^3/ul Absolute Monos (auto) (0-0.8) 10^3/ul Absolute Eos (auto) (0-0.6) 10^3/ul Absolute Basos (auto) (0-0.2) 10^3/ul Absolute Nucleated RBC 10^3/ul Nucleated RBC % Sodium (133-145) mmol/L Potassium (3.5-5.0) mmol/L Chloride (101-111) mmol/L Carbon Dioxide (22-32) mmol/L Anion Gap (2-11) mmol/L BUN (6-24) mg/dL Creatinine (0.67-1.17) mg/dL Est GFR ( Amer) (>60) Est GFR (Non-Af Amer) (>60) BUN/Creatinine Ratio (8-20) Glucose (70-100) mg/dL POC Glucose (mg/dL) 234 H (70-100) mg/dL Lactic Acid 1.4 (0.5-2.0) mmol/L Calcium (8.6-10.3) mg/dL Total Bilirubin (0.2-1.0) mg/dL AST (13-39) U/L ALT (7-52) U/L Alkaline Phosphatase (34-104) U/L C-Reactive Protein (< 5.00) mg/L Total Protein (6.4-8.9) g/dL Albumin (3.2-5.2) g/dL Globulin (2-4) g/dL Albumin/Globulin Ratio (1-3) Lipase (11.0-82.0) U/L Result Diagrams: 11/25/16 08:17 11/25/16 08:17 Lab Statement: Any lab studies that have been ordered have been reviewed, and results considered in the medical decision making process. Abdominal Pain Fem Course/Dx - Course Course Of Treatment: IMPROVED IN ED AFTER IVF, ZOFRAN, REGLAN, ATIVAN, MORPHINE AND GI COCKTAIL. F/U WITH PMD. NO CRITICAL CARE TIME. - Diagnoses Provider Diagnoses: Abdominal pain Discharge - Discharge Plan Condition: Stable Disposition: HOME Prescriptions: Oxycodone W/ Acetaminophen [Percocet 7.5-325 mg (NF)] 1 tab PO Q6H PRN #15 tab MDD 4 PRN Reason: Pain Patient Education Materials: Abdominal Pain (ED) Referrals: Toby Edge MD [Primary Care Provider] - Additional Instructions: FOLLOW UP WITH YOUR DOCTOR. RETURN TO THE EMERGENCY DEPARTMENT FOR ANY WORSENING OF YOUR CONDITION OR QUESTIONS OR CONCERNS. The documentation as recorded by the Ca deutsch Edward accurately reflects the service I personally performed and the decisions made by me, Abdullahi Sams MD.
[2016-11-25 14:44] VITALS: BP 143/96
== END 2016-11-25 14:43 | disposition home or self-care (01) ==
LOC: ED 07:52
DX: R10.9 Unspecified abdominal pain (principal); K21.9 Gastro-esophageal reflux disease without esophagitis; F17.210 Nicotine dependence, cigarettes, uncomplicated
CPT/HCPCS: 36415; 80053; 83605; 83690; 85025; 86140; 96360; 96374; 96375; 96376; 99283; A9270-GY; J2060; J2270; J2405; J2765

== ENCOUNTER 2016-12-13 05:06 | Inpatient (IN) | payer MEDICAID, OTHER ==
[2016-12-13] MEDS ORDERED: Morphine INJ* 4 MG/ML 1 ML CARPUJECT IV ONE (05:17)
[2016-12-13] MEDS ORDERED: LORazepam INJ* 2 MG/ML 1 ML VIAL IV PUSH ONE (05:17)
[2016-12-13] MEDS ORDERED: Metoclopramide IV* 5 MG/ML 2 ML VIAL IV ONE (05:17)
[2016-12-13] MEDS ORDERED: NS 0.9% 1000 ML* 1,000 ML IV ONE (05:17)
[2016-12-13 06:06] LABS: Hematocrit 34 % (42-52); Hemoglobin 11.8 g/dl (14.0-18.0); Mean Corpuscular HGB Conc 34 g/dl (31-36); Mean Corpuscular Hemoglobin 29 pg (27-31); Mean Corpuscular Volume 85 fL (80-94); Mean Platelet Volume 8 um3 (7.4-10.4); Red Blood Count 4.03 10^6/ul (4.0-5.4); Red Cell Distribution Width 14 % (10.5-15); White Blood Count 8.8 10^3/ul (3.5-10.8)
[2016-12-13 06:14] LABS: ALT 10 U/L (7-52); AST 16 U/L (13-39); Albumin 4.1 g/dL (3.2-5.2); Alkaline Phosphatase 83 U/L (34-104); Anion Gap 7 mmol/L (2-11); BUN/Creatinine Ratio 10.4 (8-20); Blood Urea Nitrogen 21 mg/dL (6-24); C Reactive Protein < 1.00 mg/L (< 5.00); CO2 Carbon Dioxide 28 mmol/L (22-32); Calcium 9.3 mg/dL (8.6-10.3); Chloride 98 mmol/L (101-111); EGFR African American 48.6 (>60); EGFR Non-African American 37.8 (>60); Globulin 2.9 g/dL (2-4); Glucose 150 mg/dL (70-100); Lipase 42 U/L (11.0-82.0); Potassium 3.5 mmol/L (3.5-5.0); Sodium 133 mmol/L (133-145)
--- NOTE | 2016-12-13 06:37 | ED ---
Indu Sarkar Alfonso, scribed for Rosalie Jones MD on 12/13/16 at 0544 . Abdominal Pain/Male - HPI Summary HPI Summary: This patient is a 36 year old M BIBA with police 941 to [facility] with a chief complaint of upper abdominal pain since a few days ago. The patient rates the pain 4/10 in severity. Symptoms aggravated by nothing. Symptoms alleviated by nothing. Police reports SI (his girlfriend found him long-term out of a second story window and the patient told her he would jump off a bridge). Patient denies vomiting, diarrhea, and SI. Marijuana use. PMHx includes DM. - History of Current Complaint Chief Complaint: EDAbdPain Stated Complaint: 941 Time Seen by Provider: 12/13/16 05:10 Hx Obtained From: Patient Onset/Duration: Sudden Onset, Lasting Days, Still Present Timing: Constant Severity Currently: Moderate Pain Intensity: 4 Pain Scale Used: 0-10 Numeric Location: Discrete At: RUQ, Discrete At: LUQ Aggravating Factor(s): Nothing Alleviating Factor(s): Nothing Associated Signs And Symptoms: Positive: Other - . Police reports SI (his girlfriend found him long-term out of a second story window and the patient told her he would jump off a bridge). Patient denies vomiting, diarrhea, and SI. - Allergies/Home Medications Allergies/Adverse Reactions: Allergies Allergy/AdvReac Type Severity Reaction Status Date / Time Gluten Meal Allergy Abdominal Verified 09/24/16 14:28 Pain PMH/Surg Hx/FS Hx/Imm Hx Endocrine/Hematology History: Reports: Hx Diabetes - Type 1 Denies: Hx Anticoagulant Therapy, Hx Thyroid Disease Cardiovascular History: Denies: Hx Hypertension, Hx Pacemaker/ICD, Hx Peripheral Vascular Disease, Other Cardiovascular Problems/Disorders Respiratory History: Reports: Hx Pneumonia Denies: Hx Asthma, Hx Chronic Bronchitis, Hx Chronic Obstructive Pulmonary Disease (COPD), Hx Cystic Fibrosis, Hx Lung Cancer, Hx Pleural Effusion, Hx Pulmonary Edema, Hx Pulmonary Embolism, Hx Seasonal Allergies, Hx Sleep Apnea, Other Respiratory Problems/Disorders GI History: Reports: Hx Gastroesophageal Reflux Disease, Hx Gastrointestinal Bleed, Hx Ulcer, Other GI Disorders - Gastroparesis Denies: Hx Cirrhosis, Hx Crohn's Disease, Hx Diverticulosis, Hx Gall Bladder Disease, Hx Hiatal Hernia, Hx Irritable Bowel, Hx Jaundice, Hx Obstructive Bowel , Hx Ileostomy, Hx Pyloric Stenosis History: Reports: Other Problems/Disorders - chronic kidney disease Denies: Hx Kidney Stones, Hx Renal Disease Musculoskeletal History: Denies: Hx Arthritis, Hx Osteoporosis Sensory History: Reports: Hx Vision Problem Denies: Hx Cataracts, Hx Contacts or Glasses, Hx Eye Injury, Hx Eye Prosthesis, Hx Glaucoma, Hx Macular Degeneration, Hx Deafness, Hx Hearing Aid, Hx Hearing Problem, Other Sensory Impairments Opthamlomology History: Reports: Hx Vision Problem Denies: Hx Cataracts, Hx Contacts or Glasses, Hx Eye Injury, Hx Eye Prosthesis, Hx Glaucoma, Hx Macular Degeneration, Other Sensory Impairments Neurological History: Denies: Hx Dementia, Hx Headaches, Hx Seizures, Hx Transient Ischemic Attacks (TIA) Psychiatric History: Reports: Hx Anxiety, Hx Depression, Hx Bipolar Disorder, Hx Substance Abuse - Marijuana Denies: Hx Eating Disorder, Hx Panic Disorder, Hx Post Traumatic Stress Disorder, Hx Schizophrenia, Hx of Violent Episodes Against Others, Other Psychiatric Issues/Disorders - Cancer History Hx Chemotherapy: No Hx Radiation Therapy: No - Surgical History Hx Anesthesia Reactions: No - Immunization History Date of Tetanus Vaccine: Unk Date of Influenza Vaccine: None Infectious Disease History: No Infectious Disease History: Denies: Hx Hepatitis, Hx Human Immunodeficiency Virus (HIV), Hx of Known/ Suspected MRSA, Hx Shingles, Hx Tuberculosis, History Other Infectious Disease, Traveled Outside the [place] in Last 30 Days - Family History Known Family History: Negative: Cardiac Disease, Hypertension, Diabetes - Social History Alcohol Use: None Hx Substance Use: Yes Substance Use Type: Reports: Marijuana Substance Use Comment - Amount & Last Used: frequent Hx Tobacco Use: Yes Smoking Status (MU): Light Every Day Tobacco Smoker Type: Cigarettes Amount Used/How Often: 1/2PPD Length of Time of Smoking/Using Tobacco: 20 years Have You Smoked in the Last Year: Yes Review of Systems Positive: Abdominal Pain. Negative: Vomiting, Diarrhea Psychological: Other - olice reports SI (his girlfriend found him long-term out of a second story window and the patient told her he would jump off a bridge); Patient denies SI All Other Systems Reviewed And Are Negative: Yes Physical Exam - Summary Physical Exam Summary: General: Well appearing, no pain distress Skin: Warm, Skin Color Reflects Adequate Perfusion, Dry Eyes: EOMI, SARAHY ENT: Pharynx normal, TMs normal Neck: Supple, nontender Respiratory: CTA, breath sounds present, no rhonchi, no wheezes, no rales Cardiovascular: RRR, no murmur, no rub, no gallop Abdomen: Soft, nontender, Non-distended, no guarding, no rebound Bowel: Present Musculoskeletal: CARO, No edema Neuro: Sensory/motor intact, A&Ox3, CN intact 2-12 Psych: Angry Triage Information Reviewed: Yes Vital Signs On Initial Exam: Initial Vitals Temp Pulse Resp BP Pulse Ox 97.3 F 119 18 123/88 100 12/13/16 05:10 12/13/16 05:10 12/13/16 05:10 12/13/16 05:10 12/13/16 05:10 Vital Signs Reviewed: Yes - Royal Coma Scale Coma Scale Total: 15 Diagnostics - Vital Signs Vital Signs Temp Pulse Resp BP Pulse Ox 12/13/16 05:10 97.3 F 119 18 123/88 100 - Laboratory Lab Results: Lab Results 12/13/16 12/13/16 Range/Units 05:40 05:40 WBC 8.8 (3.5-10.8) 10^3/ul RBC 4.03 (4.0-5.4) 10^6/ul Hgb 11.8 L (14.0-18.0) g/dl Hct 34 L (42-52) % MCV 85 (80-94) fL MCH 29 (27-31) pg MCHC 34 (31-36) g/dl RDW 14 (10.5-15) % Plt Count 417 (150-450) 10^3/ul MPV 8 (7.4-10.4) um3 Neut % (Auto) 66.9 (38-83) % Lymph % (Auto) 24.0 L (25-47) % Cottle % (Auto) 6.0 (1-9) % Eos % (Auto) 2.6 (0-6) % Baso % (Auto) 0.5 (0-2) % Absolute Neuts (auto) 5.9 (1.5-7.7) 10^3/ul Absolute Lymphs (auto) 2.1 (1.0-4.8) 10^3/ul Absolute Monos (auto) 0.5 (0-0.8) 10^3/ul Absolute Eos (auto) 0.2 (0-0.6) 10^3/ul Absolute Basos (auto) 0 (0-0.2) 10^3/ul Absolute Nucleated RBC 0 10^3/ul Nucleated RBC % 0 Sodium 133 (133-145) mmol/L Potassium 3.5 (3.5-5.0) mmol/L Chloride 98 L (101-111) mmol/L Carbon Dioxide 28 (22-32) mmol/L Anion Gap 7 (2-11) mmol/L BUN 21 (6-24) mg/dL Creatinine 2.02 H (0.67-1.17) mg/dL Est GFR ( Amer) 48.6 (>60) Est GFR (Non-Af Amer) 37.8 (>60) BUN/Creatinine Ratio 10.4 (8-20) Glucose 150 H (70-100) mg/dL Calcium 9.3 (8.6-10.3) mg/dL Total Bilirubin 0.40 (0.2-1.0) mg/dL AST 16 (13-39) U/L ALT 10 (7-52) U/L Alkaline Phosphatase 83 (34-104) U/L C-Reactive Protein < 1.00 (< 5.00) mg/L Total Protein 7.0 (6.4-8.9) g/dL Albumin 4.1 (3.2-5.2) g/dL Globulin 2.9 (2-4) g/dL Albumin/Globulin Ratio 1.4 (1-3) Lipase 42 (11.0-82.0) U/L Result Diagrams: 12/13/16 05:40 12/13/16 05:40 Lab Statement: Any lab studies that have been ordered have been reviewed, and results considered in the medical decision making process. Abdominal Pain Fem Course/Dx - Course Course Of Treatment: 36 yo with chronic abd pain who reportedly expressed suicidial ideations. He has been medicated and his labs are at their baseline, he is now awaiting a mental health evaluation and will be signed out to the am attending - Diagnoses Provider Diagnoses: Abdominal pain, Suicidal ideation, Chronic kidney disease Discharge - Discharge Plan Condition: Stable Disposition: OTHER Discharge Disposition Comment: to be determined The documentation as recorded by the Indu deutsch Alfonso accurately reflects the service I personally performed and the decisions made by me, Rosalie Jones MD.
[2016-12-13 08:14] LABS: Acetaminophen < 15 mcg/mL; Alcohol < 10 mg/dL (<10); Salicylate < 2.50 mg/dL (<30)
[2016-12-13 08:29] LABS: Urine Bacteria Absent (Absent); Urine Bilirubin Negative (Negative); Urine Glucose 2+(150 mg/dL) (Negative); Urine Nitrite Negative (Negative)
[2016-12-13 08:34] LABS: Benzodiazepine Urine Screen None Detected (None Detect)
[2016-12-13] MEDS ORDERED: Nicotine Inhaler* 10 MG AMP INH PRN (10:46)
[2016-12-13] MEDS ORDERED: oxyCODONE/Acetamin 5/325 MG* TAB PO ONE (10:58)
[2016-12-13] MEDS ORDERED: Mouth Piece, Nicotine* 1 EACH CARTRIDGE INH ONE (12:00)
[2016-12-13] MEDS: Insulin LISPRO* 1 UNITS UNIT SUBCUT SCH ×2 (15:41→19:20)
[2016-12-13] MEDS: Metoclopramide TAB* 10 MG PO SCH ×2 (15:41→20:45)
[2016-12-13] MEDS: Insulin GLARGINE(*) 1 UNITS UNIT SUBCUT SCH (15:41)
[2016-12-13] MEDS: Gabapentin CAP(*) 300 MG PO SCH ×2 (15:42→20:45)
[2016-12-13] MEDS: Nicotine PATCH 21 MG/24 HR* PATCH TRANSDERM SCH (15:42)
[2016-12-13 16:03] LABS: Cholesterol 212 mg/dL; HDL Cholesterol 37.1 mg/dL; LDL Cholesterol 120 mg/dL; Triglycerides 274 mg/dL
[2016-12-13] MEDS: traMADol TAB* 50 MG PO PRN (19:48)
[2016-12-13] MEDS: Diclofenac Sodium EC TAB* 25 MG PO SCH (20:44)
[2016-12-13] MEDS: QUEtiapine TAB* 100 MG PO SCH (20:45)
[2016-12-13] MEDS: Nicotine Patch Removal NOTE PATCH OFF SCH (21:08)
[2016-12-14] MEDS ORDERED: Nicotine PATCH 14 MG/24 HR* PATCH TRANSDERM SCH (08:00)
[2016-12-14] MEDS ORDERED: Nicotine PATCH 7 MG/24 HR* PATCH TRANSDERM SCH (08:00)
[2016-12-14] MEDS: Gabapentin CAP(*) 300 MG PO SCH ×3 (09:53→20:26)
[2016-12-14] MEDS: Metoclopramide TAB* 10 MG PO SCH ×2 (09:54→20:26)
[2016-12-14] MEDS: Diclofenac Sodium EC TAB* 25 MG PO SCH ×2 (09:54→20:58)
[2016-12-14] MEDS: Insulin LISPRO* 1 UNITS UNIT SUBCUT SCH ×4 (09:56→21:31)
[2016-12-14] MEDS: Nicotine PATCH 21 MG/24 HR* PATCH TRANSDERM SCH (09:56)
[2016-12-14] MEDS: Insulin GLARGINE(*) 1 UNITS UNIT SUBCUT SCH ×2 (09:56→20:34)
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
[2016-12-14] MEDS: QUEtiapine TAB* 100 MG PO SCH (20:25)
[2016-12-14] MEDS: Nicotine Patch Removal NOTE PATCH OFF SCH (21:00)
[2016-12-15] MEDS: traMADol TAB* 50 MG PO PRN (07:11)
[2016-12-15] MEDS: Gabapentin CAP(*) 300 MG PO SCH ×3 (08:30→20:53)
[2016-12-15] MEDS: Metoclopramide TAB* 10 MG PO SCH ×2 (08:30→20:54)
[2016-12-15] MEDS: Insulin LISPRO* 1 UNITS UNIT SUBCUT SCH ×4 (08:31→21:00)
[2016-12-15] MEDS: Nicotine PATCH 21 MG/24 HR* PATCH TRANSDERM SCH (08:32)
[2016-12-15] MEDS: Diclofenac Sodium EC TAB* 25 MG PO SCH ×2 (08:34→20:58)
[2016-12-15] MEDS: buPROPion SR TAB.SR* 100 MG PO SCH ×2 (12:24→16:02)
[2016-12-15] MEDS: QUEtiapine TAB* 100 MG PO SCH (20:54)
[2016-12-15] MEDS: Insulin GLARGINE(*) 1 UNITS UNIT SUBCUT SCH (20:59)
[2016-12-15] MEDS: Nicotine Patch Removal NOTE PATCH OFF SCH (21:01)
[2016-12-16] MEDS: traMADol TAB* 50 MG PO PRN (05:55)
[2016-12-16] MEDS: Diclofenac Sodium EC TAB* 25 MG PO SCH ×2 (07:00→21:07)
[2016-12-16] MEDS: Insulin LISPRO* 1 UNITS UNIT SUBCUT SCH ×4 (08:24→22:03)
[2016-12-16] MEDS: buPROPion SR TAB.SR* 100 MG PO SCH ×2 (09:03→17:23)
[2016-12-16] MEDS: Nicotine PATCH 21 MG/24 HR* PATCH TRANSDERM SCH (09:03)
[2016-12-16] MEDS: Gabapentin CAP(*) 300 MG PO SCH ×3 (09:03→21:07)
[2016-12-16] MEDS: Metoclopramide TAB* 10 MG PO SCH ×2 (09:05→21:07)
--- NOTE | 2016-12-16 16:05 | CONS ---
CC: Dr. Edge; Dr. Johnson * CONSULTATION REPORT: DATE OF CONSULT: 12/16/16 PRIMARY CARE PROVIDER: Dr. Edge. REQUESTING PHYSICIAN FOR CONSULT: Dr. Johnson. ATTENDING PHYSICIAN WHILE IN THE HOSPITAL: Lucian Walker MD (report dictated by Delmar Ayala NP). REASON FOR MEDICAL CONSULTATION: Evaluation of diabetes. HISTORY OF PRESENT ILLNESS: Mr. Simmons is a 36-year-old male patient who has a history of diabetes, bipolar, anxiety, depression, neuropathy, also has a history of recently diagnosed celiac disease, question of GERD, and gastroparesis. He came into the emergency department on 12/13/16, into 12/14/16 , with complaints of suicidal ideations. He was brought in by the police on a 9.41. The had reported that the patient had been making suicidal comments , stating that he will jump off of a bridge or off of the second floor window from their home. She was concerned and came into the ED. He was started on his diabetic mediations, initially doing well; however, over the last couple of nights, in the morning, he has been fairly low, has been running in the 50s, and this morning, at 3 in the morning, he was 29, his sugars. Because of this we were asked to evaluate in consult. He was evaluated in the psychiatric unit. The patient says he is feeling well. He says he does not feel suicidal. He denies having any chest pain or shortness of breath. He says he has good appetite. He says his abdominal pain has been well controlled since he has been adhering to a celiac diet and he is also on tramadol, which has been helping. He denies any chest pain or shortness of breath. He denies having any abdominal discomfort currently, but again because of his diabetes we are asked to evaluate in consult. PAST MEDICAL HISTORY: Significant for: 1. Gastroparesis. 2. GERD. 3. CKD. 4. Neuropathy. 5. Bipolar. 6. Anxiety. 7. Depression. 8. Celiac. PAST SURGICAL HISTORY: Denied. HOME MEDICATIONS: According to the list that was provided includes: 1. Reglan 10 mg to 20 mg p.o. t.i.d. 2. Insulin sliding scale before meals. 3. Lantus 28 units daily. 4. Glucagon 1 mg IM daily as needed for hypoglycemia. 5. Gabapentin 300 mg p.o. t.i.d. ALLERGIES TO MEDICATIONS: Include GLUTEN. FAMILY HISTORY: Mother had history of CVA. Father's history is unknown. SOCIAL HISTORY: He does smoke cigarettes occasionally. He does not drink alcohol. He denies recreational drugs, with exception that he does smoke marijuana. His surrogate decision maker is his . REVIEW OF SYSTEMS: There is no documented fever. He denied having any significant weight change. No double vision. No ear discharge. No rhinorrhea. No sore throat. No thyroid enlargement. He denied having any chest pain. There was no orthopnea. No nocturnal dyspnea. There was no abdominal pain. No nausea. No vomiting. No dysuria. No frequency. No seizure. No loss of consciousness. No pruritus and no skin ulcerations. Review of 14 systems completed, all others negative. PHYSICAL EXAMINATION: Reveals vital signs, blood pressure 133/101, pulse 98, respirations 16, O2 sat 100%, and temperature was 98.5. General: At this time , Mr. Simmons is a 36-year-old male patient. He is sitting in the [facility]. He does not appear to be in any acute distress. He is awake and he is alert. HEENT: Head is atraumatic. Eyes: Sclerae anicteric, not pale. Neck: Supple. Throat : Oral mucosa appears to be moist. No oropharyngeal erythema. Heart: Sounds S1 and S2. Regular rate and rhythm. No murmurs, rubs or gallops. Lungs: Clear to auscultation bilaterally. No wheezes, rales or rhonchi. Abdomen: Soft, flat, nontender. Bowel sounds were present. Extremities: No peripheral edema. He is able to move all 4 extremities with 5/5 strength. Neurologic: The patient is awake, alert, and oriented x3. Engine Generator Assembler are equal. Tongue midline. He had no gross focal deficits. Skin: Intact. DIAGNOSTIC STUDIES/LAB DATA: Sodium of 133, potassium of 3.5, chloride of 98, bicarb 28, BUN 21, creatinine of 2.02, glucose 105. A1c was 9. His calcium is 9.3. Total bili 0.4, AST 16, ALT 10, alk phos 83. CRP of less than 1. Albumin of 4.1. He had a WBC of 8.8, RBC of 4.03, hemoglobin 11.8, hematocrit 34, platelet count of 417. Urine, which was obtained, showed 3+ protein, 2+ glucose, and U-tox was positive for opiates and cannabis. Old medical records were reviewed. ASSESSMENT AND PLAN: Mr. Simmons is a 36-year-old male patient, coming into the [facility] with complaints suicidal ideation, now found to have episodes of hypoglycemia. My recommendations at this point are: 1. Suicidal ideation: Further management with Psychiatry. 2. Depression and anxiety: Management per Psychiatry. 3. Bipolar: Management per Psychiatry. 4. Celiac disease: Recommend a gluten-free diet. 5. Gastroesophageal reflux disease: Continue meds as prescribed. 6. Chronic kidney disease: Stable, follow. 7. Diabetes: At this point, I will cut back on his Lantus to 20 units. If he is discharged tomorrow, he needs close followup with Dr. Edge, his primary within the week. The patient states he will be discharged tomorrow; however, if he is not, we will follow him closely and adjust his Lantus as needed. 8. Neuropathy: Continue his gabapentin. 9. DVT prophylaxis: We will defer to primary. 10. Fluids, electrolytes, nutrition: Recommend a consistent carb diet. TIME SPENT: Time spent on the admission was 60 minutes, greater than half of that time was spent [id number] with the patient obtaining my history and physical, the other half time was spent going over the plan of care with the patient and implementing the plan of care. I did discuss the plan of care with my attending, Dr. Walker, he is in agreement. DELMAR AYALA, GALI [id number]/CPS #: [id number] DESHAUN
--- NOTE | 2016-12-16 16:48 | PN ---
Subjective - Subjective Service Type: [id number] Hosp care 15 min low complexity Subjective: Barron reports that he was wrongfully hospitalized due to lies of his house guests that he was going to kick out. He was never suicidal. He smokes pot daily and will never quit, patient says. Euphoric and mildly pressured on presentation. Objective - Appearance Appearance: Thin Framed Dysmorphic Features: No Hygiene: Normal Grooming: Fairly Well Kept - Behavior Psychomotor Activities: Abnormal-Increased Exhibits Abnormal Movement: No - Attitude and Relatedness Attitude and Relatedness: Cooperative Eye Contact: Good - Speech Quality: Pressured Latencies: Short Quantity: Appropriate - Mood Patient's Decription of Mood: "Good" - Affect Observed Affect: Expansive Affect Consistent with: Euphoria - Thought Process Patient's Thought Process: Coherent, Circumstantial, Over Inclusive Thought Content: No Passive Wish, No Suicidal Planning, No Homicidal Ideation, No Paranoid Ideation - Sensorium Experiencing Hallucinations: No, Sensorium is Clear Type of Hallucinations: Visual: No, Auditory: No, Command: No - Level of Consciousness Level of Consciousness: Alert Orientation: Yes Intact, Yes Orientated to Time, Yes Orientated to Place, Yes Orientated to Person - Impulse Control Impulse Control: Tenuous - Insight and Judgement Insight and Judgement: Poor - Group Participation Particating in Group Activities: Yes Assessment - Assessment Merits Inpatient Hospitalization: For Stabilization Plan - Plan Treatment Plan: Name: BARRON MEDEROS Birthdate: 1980 [id number] Continued Medication Management: Consider Medication Medications: Current Medications Bupropion HCl (Wellbutrin Sr Tab*) 100 mg PO 0800,1700 [facility] Last Admin: 12/16/16 09:03 Dose: 100 mg Diclofenac Sodium (Voltaren Ec Tab*) 50 mg PO BID [facility] Last Admin: 12/16/16 07:00 Dose: 50 mg Gabapentin (Neurontin Cap(*)) 300 mg PO TID [facility] Last Admin: 12/16/16 13:59 Dose: 300 mg Insulin Glargine (Lantus(*)) 20 units SUBCUT BEDTIME [facility] Insulin Human Lispro (Humalog*) 0 - 6 units SUBCUT ACHS [facility] PRN Reason: Protocol Last Admin: 12/16/16 16:41 Dose: Not Given Metoclopramide HCl (Reglan Tab*) 10 mg PO BID [facility] Last Admin: 12/16/16 09:05 Dose: 10 mg Nicotine (Nicotine Inhaler*) 10 mg INH Q2H PRN PRN Reason: CRAVING Nicotine (Nicotine Patch 21 Mg/24 Hr*) 1 patch TRANSDERM DAILY@0800 [facility] Last Admin: 12/16/16 09:03 Dose: Not Given Pharmacy Profile Note (Nicotine Patch Removal Note*) 1 note PATCH OFF 2100 [facility] Last Admin: 12/15/16 21:01 Dose: Not Given Quetiapine Fumarate (Seroquel Tab*) 200 mg PO BEDTIME [facility] Last Admin: 12/15/16 20:54 Dose: 200 mg Tramadol HCl (Ultram*) 50 mg PO Q6H PRN PRN Reason: PAIN Last Admin: 12/16/16 05:55 Dose: 50 mg - Discharge Plan Discharge Plan: Outpatient Follow Up Out[facility]
[2016-12-16] MEDS ORDERED: Insulin GLARGINE(*) 1 UNITS UNIT SUBCUT SCH (21:00)
[2016-12-16] MEDS: QUEtiapine TAB* 100 MG PO SCH (21:06)
[2016-12-16] MEDS: Nicotine Patch Removal NOTE PATCH OFF SCH (21:14)
[2016-12-17] MEDS: Metoclopramide TAB* 10 MG PO SCH ×2 (07:03→08:07)
[2016-12-17] MEDS: Insulin LISPRO* 1 UNITS UNIT SUBCUT SCH ×2 (07:49→12:03)
[2016-12-17] MEDS: buPROPion SR TAB.SR* 100 MG PO SCH (08:04)
[2016-12-17] MEDS: Gabapentin CAP(*) 300 MG PO SCH (08:04)
[2016-12-17] MEDS: Diclofenac Sodium EC TAB* 25 MG PO SCH (08:05)
[2016-12-17] MEDS: Nicotine PATCH 21 MG/24 HR* PATCH TRANSDERM SCH (08:06)
[2016-12-17 08:20] VITALS: BP 120/90
[2016-12-17] MEDS: traMADol TAB* 50 MG PO PRN (10:17)
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
[2016-12-17] MEDS ORDERED: Insulin GLARGINE(*) 1 UNITS UNIT SUBCUT SCH (21:00)
== END 2016-12-17 12:26 | disposition home or self-care (01) | DRG 751 ==
LOC: ED 05:06 → BSU 10:46
PROVIDERS: ADMIT Psychiatry & Neurology Psychiatry; ATTEND Psychiatry & Neurology Psychiatry
DX: F33.2 Major depressive disorder, recurrent severe without psychotic features (principal); E11.22 Type 2 diabetes mellitus with diabetic chronic kidney disease; K31.84 Gastroparesis; E11.40 Type 2 diabetes mellitus with diabetic neuropathy, unspecified; F43.10 Post-traumatic stress disorder, unspecified; F11.90 Opioid use, unspecified, uncomplicated; F12.10 Cannabis abuse, uncomplicated; K90.0 Celiac disease; E11.43 Type 2 diabetes mellitus with diabetic autonomic (poly)neuropathy; K21.9 Gastro-esophageal reflux disease without esophagitis; N18.9 Chronic kidney disease, unspecified; Z79.4 Long term (current) use of insulin; Z79.84 Long term (current) use of oral hypoglycemic drugs; Z91.018 Allergy to other foods; Z81.1 Family history of alcohol abuse and dependence; Z81.8 Family history of other mental and behavioral disorders; Z79.899 Other long term (current) drug therapy
CPT/HCPCS: 36415; 80053; 80061; 80307; 80320; 80329; 81003; 81015; 83036; 83690; 85025; 86140; 99222; 99231; 99238; A9270-GY; G0480; J2060; J2270; J2765

== ENCOUNTER 2016-12-22 10:19 | Emergency (ER) | payer MEDICAID, OTHER ==
[2016-12-22] MEDS ORDERED: Ondansetron INJ* 2 MG/ML VIAL IV ONE (12:19)
[2016-12-22] MEDS ORDERED: LORazepam INJ* 2 MG/ML 1 ML VIAL IV ONE (12:26)
[2016-12-22] MEDS ORDERED: Pantoprazole IV* 40 MG IV ONE (12:26)
[2016-12-22] MEDS: NS 0.9% 1000 ML* 3,000 ML IV ONE ×2 (12:40→15:22)
--- NOTE | 2016-12-22 12:49 | RAD ---
HISTORY: Tachycardia, predominantly pain COMPARISONS: March 30, 2016 VIEWS: 1: frontal portable view of the chest at 12:37 PM FINDINGS: LINES AND TUBES: None. CARDIOMEDIASTINAL SILHOUETTE: The cardiomediastinal silhouette is normal for portable technique. PLEURA: The costophrenic angles are sharp. No pleural abnormalities are noted. LUNG PARENCHYMA: There is hyperinflation. ABDOMEN: The upper abdomen is clear. There is no subphrenic gas. BONES AND SOFT TISSUES: No bone or soft tissue abnormalities are noted. IMPRESSION: NO ACTIVE CARDIOPULMONARY DISEASE.
--- NOTE | 2016-12-22 12:50 | RAD ---
HISTORY: Tachycardia, upper abdominal pain COMPARISONS: September 05, 2016 VIEWS: Frontal views of the abdomen. FINDINGS: Evaluation of the left lower quadrant is limited by overlying metallic artifact. BOWEL: There is a nonobstructive bowel gas pattern. There is a large amount of stool within the colon. CALCULI: There are no abnormal calculi. BONES AND SOFT TISSUES: There are no osseous abnormalities. OTHER FINDINGS: The lung bases are clear. There is no subphrenic gas. IMPRESSION: NONOBSTRUCTIVE BOWEL GAS PATTERN. LARGE AMOUNT OF STOOL WITHIN THE COLON.
[2016-12-22 12:53] LABS: Hematocrit 36 % (42-52); Hemoglobin 12.1 g/dl (14.0-18.0); Mean Corpuscular HGB Conc 34 g/dl (31-36); Mean Corpuscular Hemoglobin 29 pg (27-31); Mean Corpuscular Volume 85 fL (80-94); Mean Platelet Volume 8 um3 (7.4-10.4); Red Cell Distribution Width 14 % (10.5-15); White Blood Count 12.3 10^3/ul (3.5-10.8)
[2016-12-22] MEDS ORDERED: Morphine INJ* 4 MG/ML 1 ML CARPUJECT IV ONE ×2 (12:53→16:26)
[2016-12-22 13:06] LABS: Ammonia 38 mol/L (16-53)
[2016-12-22 13:07] LABS: ALT 15 U/L (7-52); AST 21 U/L (13-39); Albumin 4.3 g/dL (3.2-5.2); Alkaline Phosphatase 103 U/L (34-104); Anion Gap 11 mmol/L (2-11); BUN/Creatinine Ratio 10.2 (8-20); Blood Urea Nitrogen 22 mg/dL (6-24); C Reactive Protein < 1.00 mg/L (< 5.00); CO2 Carbon Dioxide 23 mmol/L (22-32); Calcium 9.7 mg/dL (8.6-10.3); Chloride 95 mmol/L (101-111); Creatine Kinase 96 U/L (10-223); Globulin 3.4 g/dL (2-4); Glucose 406 mg/dL (70-100); Lipase 28 U/L (11.0-82.0); Magnesium 2.1 mg/dL (1.9-2.7); Potassium 4.3 mmol/L (3.5-5.0); Sodium 129 mmol/L (133-145); Total Protein 7.7 g/dL (6.4-8.9)
[2016-12-22 13:08] LABS: Troponin I 0.01 ng/mL (<0.04)
[2016-12-22 13:11] LABS: B Type Natriuretic Peptide 120 pg/mL
[2016-12-22 13:16] LABS: Venous Bicarbonate HCO3 24.2 mmol/L (24-28)
[2016-12-22 13:34] LABS: Acetaminophen < 15 mcg/mL; Alcohol < 10 mg/dL (<10)
[2016-12-22 13:53] LABS: TSH (Thyroid Stimulating Horm) 0.45 mcIU/mL (0.34-5.60)
[2016-12-22 15:17] LABS: Urine Bacteria Absent (Absent); Urine Bilirubin Negative (Negative); Urine Glucose 3+(>=500 mg/dL) (Negative); Urine Nitrite Negative (Negative)
[2016-12-22 15:40] LABS: Benzodiazepine Urine Screen None Detected (None Detect)
[2016-12-22] MEDS ORDERED: Metoclopramide IV* 5 MG/ML 2 ML VIAL IV SLOW PU ONE (16:26)
[2016-12-22] MEDS ORDERED: NS 0.9% 1000 ML* 1,000 ML IV ONE (16:26)
[2016-12-22] MEDS ORDERED: Omeprazole CAP* 20 MG PO ONE (18:38)
--- NOTE | 2016-12-22 18:43 | ED ---
[facility], scribed for Abdullahi Sams MD on 12/22/16 at 1226 . Abdominal Pain/Male - HPI Summary HPI Summary: This patient is a 36 year old M presenting to ED with a chief complaint of epigastric abdominal pain since 299. The CC is described as aching, sharp, and intermittent. The patient rates the pain 10/10 in severity. Symptoms aggravated by nothing. Symptoms alleviated by nothing. Patient reports vomiting (1x) and nausea. Patient denies diarrhea, fever, and hematochezia. - History of Current Complaint Chief Complaint: EDAbdPain Stated Complaint: ABD PAIN/NAUSEA Time Seen by Provider: 12/22/16 12:14 Hx Obtained From: Patient Onset/Duration: Sudden Onset - since 299, Still Present Timing: Intermittent Severity Initially: Severe Severity Currently: Severe Pain Intensity: 10 Pain Scale Used: 0-10 Numeric Location: Epigastric Radiates: No Character: Sharp, Other: - aching Aggravating Factor(s): Nothing Alleviating Factor(s): Nothing Associated Signs And Symptoms: Positive: Other - Patient reports vomiting (1x) and nausea. Patient denies diarrhea, fever, and hematochezia. - Allergies/Home Medications Allergies/Adverse Reactions: Allergies Allergy/AdvReac Type Severity Reaction Status Date / Time Gluten Meal Allergy Abdominal Verified 12/13/16 15:28 Pain PMH/Surg Hx/FS Hx/Imm Hx Endocrine/Hematology History: Reports: Hx Diabetes - Type 1 Denies: Hx Anticoagulant Therapy, Hx Thyroid Disease Cardiovascular History: Denies: Hx Hypertension, Hx Pacemaker/ICD, Hx Peripheral Vascular Disease, Other Cardiovascular Problems/Disorders Respiratory History: Reports: Hx Pneumonia Denies: Hx Asthma, Hx Chronic Bronchitis, Hx Chronic Obstructive Pulmonary Disease (COPD), Hx Cystic Fibrosis, Hx Lung Cancer, Hx Pleural Effusion, Hx Pulmonary Edema, Hx Pulmonary Embolism, Hx Seasonal Allergies, Hx Sleep Apnea, Other Respiratory Problems/Disorders GI History: Reports: Hx Gastroesophageal Reflux Disease, Hx Gastrointestinal Bleed, Hx Ulcer, Other GI Disorders - Gastroparesis Denies: Hx Cirrhosis, Hx Crohn's Disease, Hx Diverticulosis, Hx Gall Bladder Disease, Hx Hiatal Hernia, Hx Irritable Bowel, Hx Jaundice, Hx Obstructive Bowel , Hx Ileostomy, Hx Pyloric Stenosis History: Reports: Other Problems/Disorders - chronic kidney disease Denies: Hx Kidney Stones, Hx Renal Disease Musculoskeletal History: Denies: Hx Arthritis, Hx Osteoporosis Sensory History: Reports: Hx Vision Problem Denies: Hx Cataracts, Hx Contacts or Glasses, Hx Eye Injury, Hx Eye Prosthesis, Hx Glaucoma, Hx Macular Degeneration, Hx Deafness, Hx Hearing Aid, Hx Hearing Problem, Other Sensory Impairments Opthamlomology History: Reports: Hx Vision Problem Denies: Hx Cataracts, Hx Contacts or Glasses, Hx Eye Injury, Hx Eye Prosthesis, Hx Glaucoma, Hx Macular Degeneration, Other Sensory Impairments Neurological History: Denies: Hx Dementia, Hx Headaches, Hx Seizures, Hx Transient Ischemic Attacks (TIA) Psychiatric History: Reports: Hx Anxiety, Hx Depression, Hx Inpatient Treatment , Hx Community Mental Health Tx, Hx Bipolar Disorder, Hx Substance Abuse Denies: Hx Eating Disorder, Hx Panic Disorder, Hx Post Traumatic Stress Disorder, Hx Schizophrenia, Hx of Violent Episodes Against Others, Other Psychiatric Issues/Disorders - Cancer History Hx Chemotherapy: No Hx Radiation Therapy: No - Surgical History Hx Anesthesia Reactions: No - Immunization History Date of Tetanus Vaccine: utd Date of Influenza Vaccine: no Infectious Disease History: No Infectious Disease History: Denies: Hx Hepatitis, Hx Human Immunodeficiency Virus (HIV), Hx of Known/ Suspected MRSA, Hx Shingles, Hx Tuberculosis, History Other Infectious Disease, Traveled Outside the [place] in Last 30 Days - Family History Known Family History: Negative: Cardiac Disease, Hypertension, Diabetes Family History: NON CONTRIBUTORY - Social History Alcohol Use: None Hx Substance Use: Yes Substance Use Type: Reports: Marijuana Substance Use Comment - Amount & Last Used: daily Hx Tobacco Use: Yes Smoking Status (MU): Light Every Day Tobacco Smoker Type: Cigarettes Amount Used/How Often: 1/2PPD a day and has smoked in the last 30 days Length of Time of Smoking/Using Tobacco: 20 years Have You Smoked in the Last Year: Yes Review of Systems Negative: Fever Positive: Abdominal Pain - epigastric, Vomiting, Nausea, Other - Denies hematochezia. Negative: Diarrhea All Other Systems Reviewed And Are Negative: Yes Physical Exam Triage Information Reviewed: Yes Vital Signs On Initial Exam: Initial Vitals Temp Pulse Resp BP Pulse Ox 97.8 F 156 26 120/88 99 12/22/16 10:20 12/22/16 10:20 12/22/16 10:20 12/22/16 10:20 12/22/16 10:20 Vital Signs Reviewed: Yes Appearance: Positive: Well-Appearing, Pain Distress - Moderate Skin: Positive: Warm, Skin Color Reflects Adequate Perfusion, Dry Head/Face: Positive: Normal Head/Face Inspection Eyes: Positive: EOMI, SARAHY ENT: Positive: Other - Dry oral mucosa Neck: Positive: Supple, Nontender Respiratory/Lung Sounds: Positive: Breath Sounds Present, Other - Dyspneic Cardiovascular: Positive: Tachycardia Abdomen Description: Positive: Soft, Other: - epigastric tenderness Bowel Sounds: Positive: Hypoactive Musculoskeletal: Positive: Normal, Strength/ROM Intact Neurological: Positive: Normal, Sensory/Motor Intact, Alert, Oriented to Person Place, Time Psychiatric: Positive: Affect/Mood Appropriate - [place] Coma Scale Coma Scale Total: 15 Diagnostics - Vital Signs Vital Signs Temp Pulse Resp BP Pulse Ox 12/22/16 12:00 138 26 158/111 94 12/22/16 11:34 145 28 98 12/22/16 11:00 115 13 165/105 96 12/22/16 10:39 132 31 137/126 100 12/22/16 10:20 97.8 F 156 26 120/88 99 - Laboratory Lab Results: Lab Results 12/22/16 12/22/16 12/22/16 Range/Units 12:23 12:38 12:38 WBC (3.5-10.8) 10^3/ul RBC (4.0-5.4) 10^6/ul Hgb (14.0-18.0) g/dl Hct (42-52) % MCV (80-94) fL MCH (27-31) pg MCHC (31-36) g/dl RDW (10.5-15) % Plt Count (150-450) 10^3/ul MPV (7.4-10.4) um3 Neut % (Auto) (38-83) % Lymph % (Auto) (25-47) % [place] % (Auto) (1-9) % Eos % (Auto) (0-6) % Baso % (Auto) (0-2) % Absolute Neuts (auto) (1.5-7.7) 10^3/ul Absolute Lymphs (auto) (1.0-4.8) 10^3/ul Absolute Monos (auto) (0-0.8) 10^3/ul Absolute Eos (auto) (0-0.6) 10^3/ul Absolute Basos (auto) (0-0.2) 10^3/ul Absolute Nucleated RBC 10^3/ul Nucleated RBC % INR (Anticoag Therapy) 0.86 L (0.89-1.11) APTT 30.4 (26.0-36.3) seconds VBG pH (7.33-7.43) VBG pCO2 (41-51) mmHg VBG pO2 (35-45) mmHg VBG HCO3 (24-28) mmol/L VBG O2 Saturation (70-80) % VBG Base Excess (0-4) Sodium 129 L (133-145) mmol/L Potassium 4.3 (3.5-5.0) mmol/L Chloride 95 L (101-111) mmol/L Carbon Dioxide 23 (22-32) mmol/L Anion Gap 11 (2-11) mmol/L BUN 22 (6-24) mg/dL Creatinine 2.16 H (0.67-1.17) mg/dL Est GFR ( Amer) 45.0 (>60) Est GFR (Non-Af Amer) 35.0 (>60) BUN/Creatinine Ratio 10.2 (8-20) Glucose 406 H (70-100) mg/dL POC Glucose (mg/dL) 416 H* (70-100) mg/dL Lactic Acid (0.5-2.0) mmol/L Calcium 9.7 (8.6-10.3) mg/dL Magnesium 2.1 (1.9-2.7) mg/dL Total Bilirubin 0.30 (0.2-1.0) mg/dL AST 21 (13-39) U/L ALT 15 (7-52) U/L Alkaline Phosphatase 103 (34-104) U/L Ammonia (16-53) mol/L Total Creatine Kinase 96 (10-223) U/L CK-MB (CK-2) 2.0 (0.6-6.3) ng/mL Troponin I 0.01 (<0.04) ng/mL C-Reactive Protein < 1.00 (< 5.00) mg/L B-Natriuretic Peptide ( - 100) pg/mL Total Protein 7.7 (6.4-8.9) g/dL Albumin 4.3 (3.2-5.2) g/dL Globulin 3.4 (2-4) g/dL Albumin/Globulin Ratio 1.3 (1-3) Lipase 28 (11.0-82.0) U/L TSH 0.45 (0.34-5.60) mcIU/mL Urine Color Urine Appearance Urine pH (5-9) Ur Specific [place] (1.010-1.030) Urine Protein (Negative) Urine Ketones (Negative) Urine Blood (Negative) Urine Nitrate (Negative) Urine Bilirubin (Negative) Urine Urobilinogen (Negative) Ur Leukocyte Esterase (Negative) Urine WBC (Auto) (Absent) Urine RBC (Auto) (Absent) Urine Bacteria (Absent) Urine Glucose (Negative) Urine Ascorbic Acid (Negative) Urine Opiates Screen (None Detect) Acetaminophen < 15 mcg/mL Ur Barbiturates Screen (None Detect) Ur Phencyclidine Scrn (None Detect) Ur Amphetamines Screen (None Detect) U Benzodiazepines Scrn (None Detect) Urine Cocaine Screen (None Detect) U Cannabinoids Screen (None Detect) Serum Alcohol < 10 (<10) mg/dL 12/22/16 12/22/16 12/22/16 Range/Units 12:38 12:38 12:38 WBC 12.3 H (3.5-10.8) 10^3/ul RBC 4.20 (4.0-5.4) 10^6/ul Hgb 12.1 L (14.0-18.0) g/dl Hct 36 L (42-52) % MCV 85 (80-94) fL MCH 29 (27-31) pg MCHC 34 (31-36) g/dl RDW 14 (10.5-15) % Plt Count 424 (150-450) 10^3/ul MPV 8 (7.4-10.4) um3 Neut % (Auto) 84.1 H (38-83) % Lymph % (Auto) 10.4 L (25-47) % [place] % (Auto) 4.1 (1-9) % Eos % (Auto) 0.6 (0-6) % Baso % (Auto) 0.8 (0-2) % Absolute Neuts (auto) 10.4 H (1.5-7.7) 10^3/ul Absolute Lymphs (auto) 1.3 (1.0-4.8) 10^3/ul Absolute Monos (auto) 0.5 (0-0.8) 10^3/ul Absolute Eos (auto) 0.1 (0-0.6) 10^3/ul Absolute Basos (auto) 0.1 (0-0.2) 10^3/ul Absolute Nucleated RBC 0 10^3/ul Nucleated RBC % 0 INR (Anticoag Therapy) (0.89-1.11) APTT (26.0-36.3) seconds VBG pH (7.33-7.43) VBG pCO2 (41-51) mmHg VBG pO2 (35-45) mmHg VBG HCO3 (24-28) mmol/L VBG O2 Saturation (70-80) % VBG Base Excess (0-4) Sodium (133-145) mmol/L Potassium (3.5-5.0) mmol/L Chloride (101-111) mmol/L Carbon Dioxide (22-32) mmol/L Anion Gap (2-11) mmol/L BUN (6-24) mg/dL Creatinine (0.67-1.17) mg/dL Est GFR ( Amer) (>60) Est GFR (Non-Af Amer) (>60) BUN/Creatinine Ratio (8-20) Glucose (70-100) mg/dL POC Glucose (mg/dL) (70-100) mg/dL Lactic Acid 3.2 H* (0.5-2.0) mmol/L Calcium (8.6-10.3) mg/dL Magnesium (1.9-2.7) mg/dL Total Bilirubin (0.2-1.0) mg/dL AST (13-39) U/L ALT (7-52) U/L Alkaline Phosphatase (34-104) U/L Ammonia 38 (16-53) mol/L Total Creatine Kinase (10-223) U/L CK-MB (CK-2) (0.6-6.3) ng/mL Troponin I (<0.04) ng/mL C-Reactive Protein (< 5.00) mg/L B-Natriuretic Peptide 120 H ( - 100) pg/mL Total Protein (6.4-8.9) g/dL Albumin (3.2-5.2) g/dL Globulin (2-4) g/dL Albumin/Globulin Ratio (1-3) Lipase (11.0-82.0) U/L TSH (0.34-5.60) mcIU/mL Urine Color Urine Appearance Urine pH (5-9) Ur Specific [place] (1.010-1.030) Urine Protein (Negative) Urine Ketones (Negative) Urine Blood (Negative) Urine Nitrate (Negative) Urine Bilirubin (Negative) Urine Urobilinogen (Negative) Ur Leukocyte Esterase (Negative) Urine WBC (Auto) (Absent) Urine RBC (Auto) (Absent) Urine Bacteria (Absent) Urine Glucose (Negative) Urine Ascorbic Acid (Negative) Urine Opiates Screen (None Detect) Acetaminophen mcg/mL Ur Barbiturates Screen (None Detect) Ur Phencyclidine Scrn (None Detect) Ur Amphetamines Screen (None Detect) U Benzodiazepines Scrn (None Detect) Urine Cocaine Screen (None Detect) U Cannabinoids Screen (None Detect) Serum Alcohol (<10) mg/dL 12/22/16 12/22/16 12/22/16 Range/Units 13:05 14:32 14:32 WBC (3.5-10.8) 10^3/ul RBC (4.0-5.4) 10^6/ul Hgb (14.0-18.0) g/dl Hct (42-52) % MCV (80-94) fL MCH (27-31) pg MCHC (31-36) g/dl RDW (10.5-15) % Plt Count (150-450) 10^3/ul MPV (7.4-10.4) um3 Neut % (Auto) (38-83) % Lymph % (Auto) (25-47) % [place] % (Auto) (1-9) % Eos % (Auto) (0-6) % Baso % (Auto) (0-2) % Absolute Neuts (auto) (1.5-7.7) 10^3/ul Absolute Lymphs (auto) (1.0-4.8) 10^3/ul Absolute Monos (auto) (0-0.8) 10^3/ul Absolute Eos (auto) (0-0.6) 10^3/ul Absolute Basos (auto) (0-0.2) 10^3/ul Absolute Nucleated RBC 10^3/ul Nucleated RBC % INR (Anticoag Therapy) (0.89-1.11) APTT (26.0-36.3) seconds VBG pH 7.36 (7.33-7.43) VBG pCO2 44 (41-51) mmHg VBG pO2 50 H (35-45) mmHg VBG HCO3 24.2 (24-28) mmol/L VBG O2 Saturation 89.4 H (70-80) % VBG Base Excess -0.7 L (0-4) Sodium (133-145) mmol/L Potassium (3.5-5.0) mmol/L Chloride (101-111) mmol/L Carbon Dioxide (22-32) mmol/L Anion Gap (2-11) mmol/L BUN (6-24) mg/dL Creatinine (0.67-1.17) mg/dL Est GFR ( Amer) (>60) Est GFR (Non-Af Amer) (>60) BUN/Creatinine Ratio (8-20) Glucose (70-100) mg/dL POC Glucose (mg/dL) (70-100) mg/dL Lactic Acid (0.5-2.0) mmol/L Calcium (8.6-10.3) mg/dL Magnesium (1.9-2.7) mg/dL Total Bilirubin (0.2-1.0) mg/dL AST (13-39) U/L ALT (7-52) U/L Alkaline Phosphatase (34-104) U/L Ammonia (16-53) mol/L Total Creatine Kinase (10-223) U/L CK-MB (CK-2) (0.6-6.3) ng/mL Troponin I (<0.04) ng/mL C-Reactive Protein (< 5.00) mg/L B-Natriuretic Peptide ( - 100) pg/mL Total Protein (6.4-8.9) g/dL Albumin (3.2-5.2) g/dL Globulin (2-4) g/dL Albumin/Globulin Ratio (1-3) Lipase (11.0-82.0) U/L TSH (0.34-5.60) mcIU/mL Urine Color Straw Urine Appearance Clear Urine pH 7.0 (5-9) Ur Specific [place] 1.013 (1.010-1.030) Urine Protein 3+(>=500 mg/dl) H (Negative) Urine Ketones Negative (Negative) Urine Blood Negative (Negative) Urine Nitrate Negative (Negative) Urine Bilirubin Negative (Negative) Urine Urobilinogen Negative (Negative) Ur Leukocyte Esterase Negative (Negative) Urine WBC (Auto) Absent (Absent) Urine RBC (Auto) Absent (Absent) Urine Bacteria Absent (Absent) Urine Glucose 3+(>=500 mg/dl) H (Negative) Urine Ascorbic Acid * H (Negative) Urine Opiates Screen None detected (None Detect) Acetaminophen mcg/mL Ur Barbiturates Screen None detected (None Detect) Ur Phencyclidine Scrn None detected (None Detect) Ur Amphetamines Screen None detected (None Detect) U Benzodiazepines Scrn None detected (None Detect) Urine Cocaine Screen None detected (None Detect) U Cannabinoids Screen Presumptive positive H (None Detect) Serum Alcohol (<10) mg/dL 12/22/16 Range/Units 15:04 WBC (3.5-10.8) 10^3/ul RBC (4.0-5.4) 10^6/ul Hgb (14.0-18.0) g/dl Hct (42-52) % MCV (80-94) fL MCH (27-31) pg MCHC (31-36) g/dl RDW (10.5-15) % Plt Count (150-450) 10^3/ul MPV (7.4-10.4) um3 Neut % (Auto) (38-83) % Lymph % (Auto) (25-47) % [place] % (Auto) (1-9) % Eos % (Auto) (0-6) % Baso % (Auto) (0-2) % Absolute Neuts (auto) (1.5-7.7) 10^3/ul Absolute Lymphs (auto) (1.0-4.8) 10^3/ul Absolute Monos (auto) (0-0.8) 10^3/ul Absolute Eos (auto) (0-0.6) 10^3/ul Absolute Basos (auto) (0-0.2) 10^3/ul Absolute Nucleated RBC 10^3/ul Nucleated RBC % INR (Anticoag Therapy) (0.89-1.11) APTT (26.0-36.3) seconds VBG pH (7.33-7.43) VBG pCO2 (41-51) mmHg VBG pO2 (35-45) mmHg VBG HCO3 (24-28) mmol/L VBG O2 Saturation (70-80) % VBG Base Excess (0-4) Sodium (133-145) mmol/L Potassium (3.5-5.0) mmol/L Chloride (101-111) mmol/L Carbon Dioxide (22-32) mmol/L Anion Gap (2-11) mmol/L BUN (6-24) mg/dL Creatinine (0.67-1.17) mg/dL Est GFR ( Amer) (>60) Est GFR (Non-Af Amer) (>60) BUN/Creatinine Ratio (8-20) Glucose (70-100) mg/dL POC Glucose (mg/dL) 292 H (70-100) mg/dL Lactic Acid (0.5-2.0) mmol/L Calcium (8.6-10.3) mg/dL Magnesium (1.9-2.7) mg/dL Total Bilirubin (0.2-1.0) mg/dL AST (13-39) U/L ALT (7-52) U/L Alkaline Phosphatase (34-104) U/L Ammonia (16-53) mol/L Total Creatine Kinase (10-223) U/L CK-MB (CK-2) (0.6-6.3) ng/mL Troponin I (<0.04) ng/mL C-Reactive Protein (< 5.00) mg/L B-Natriuretic Peptide ( - 100) pg/mL Total Protein (6.4-8.9) g/dL Albumin (3.2-5.2) g/dL Globulin (2-4) g/dL Albumin/Globulin Ratio (1-3) Lipase (11.0-82.0) U/L TSH (0.34-5.60) mcIU/mL Urine Color Urine Appearance Urine pH (5-9) Ur Specific [place] (1.010-1.030) Urine Protein (Negative) Urine Ketones (Negative) Urine Blood (Negative) Urine Nitrate (Negative) Urine Bilirubin (Negative) Urine Urobilinogen (Negative) Ur Leukocyte Esterase (Negative) Urine WBC (Auto) (Absent) Urine RBC (Auto) (Absent) Urine Bacteria (Absent) Urine Glucose (Negative) Urine Ascorbic Acid (Negative) Urine Opiates Screen (None Detect) Acetaminophen mcg/mL Ur Barbiturates Screen (None Detect) Ur Phencyclidine Scrn (None Detect) Ur Amphetamines Screen (None Detect) U Benzodiazepines Scrn (None Detect) Urine Cocaine Screen (None Detect) U Cannabinoids Screen (None Detect) Serum Alcohol (<10) mg/dL Result Diagrams: 12/22/16 12:38 12/22/16 12:38 Lab Statement: Any lab studies that have been ordered have been reviewed, and results considered in the medical decision making process. - Radiology Abdomen XR Radiology Interpretation Completed By: Radiologist - NONOBSTRUCTIVE BOWEL GAS PATTERN. LARGE AMOUNT OF STOOL WITHIN THE COLON. ED physician has reviewed this radiology report and agrees. CXR Radiology Interpretation Completed By: Radiologist - NO ACTIVE CARDIOPULMONARY DISEASE. ED physician has reviewed this radiology report and agrees. - EKG 1547 Cardiac Rate: Tachycardia - 101 bpm EKG Rhythm: Sinus Rhythm ST Segment: Normal Ectopy: None Re-Evaluation - Re-Evaluation First Eval Re-Evaluation Time: 18:32 Change: Improved Comment: Pt feels better and wants to go home. Discussed discharge plan. Abdominal Pain Fem Course/Dx - Course Assessment/Plan: This patient is a 36 year old M presenting to ED with a chief complaint of epigastric abdominal pain since 0300. The CC is described as aching , sharp, and intermittent. The patient rates the pain 10/10 in severity. Symptoms aggravated by nothing. Symptoms alleviated by nothing. Patient reports vomiting (1x) and nausea. Patient denies diarrhea, fever, and hematochezia. Abdomen XR reveals NONOBSTRUCTIVE BOWEL GAS PATTERN. LARGE AMOUNT OF STOOL WITHIN THE COLON. CXR reveals NO ACTIVE CARDIOPULMONARY DISEASE. ED physician has reviewed this radiology report and agrees. EKG reveals sinus tachycardia at 101 bpm, normal ST, and no ectopy. In the ED course, pt was given fluids and pain medication. Medications reviewed. BP noted and advised to follow up with PCP. Pt will be discharged. Pt is agreeable with this plan. DISCUSSED ADMISSION WITH PATIENT. HE FEELS IMPROVED, WISHES TO GO HOME. WILL F/U PMD; WILL RETURN IF WORSE. NO CRITICAL CARE TIME. - Diagnoses Provider Diagnoses: Abdominal pain, Vomiting, Diabetes mellitus type 1 Discharge - Discharge Plan Condition: Stable Disposition: HOME Prescriptions: Omeprazole CAP* [Prilosec CAP* 20 MG] 20 mg PO BID #30 cap. Patient Education Materials: Managing Diabetes During Sick Days (ED), Acute Nausea and Vomiting (ED), Acute Abdominal Pain (ED) Referrals: Toby Edge MD [Primary Care Provider] - Additional Instructions: FOLLOW UP WITH YOUR DOCTOR. RETURN TO THE EMERGENCY DEPARTMENT FOR ANY WORSENING OF YOUR CONDITION OR QUESTIONS OR CONCERNS. The documentation as recorded by the [facility] accurately reflects the service I personally performed and the decisions made by me, Abdullahi Sams MD.
[2016-12-22 18:56] VITALS: BP 133/85
== END 2016-12-22 18:56 | disposition home or self-care (01) ==
LOC: ED 10:19
DX: R10.13 Epigastric pain (principal); E10.9 Type 1 diabetes mellitus without complications; R11.2 Nausea with vomiting, unspecified; F17.210 Nicotine dependence, cigarettes, uncomplicated
CPT/HCPCS: 36415; 71010; 74000; 80053; 80307; 80320; 80329; 81003; 81015; 82140; 82550; 82553; 82803; 83605; 83690; 83735; 83880; 84443; 84484; 85025; 85610; 85730; 86140; 93005; 96361; 96374; 99285; G0480; J2060; J2270; J2405; J2765

== ENCOUNTER 2017-01-30 13:29 | Emergency (ER) | payer OTHER ==
[2017-01-30] MEDS ORDERED: NS 0.9% 1000 ML* 1,000 ML IV ONE (16:26)
[2017-01-30] MEDS ORDERED: Sucralfate TAB* 1 GM PO ONE (16:26)
[2017-01-30 16:59] LABS: Hematocrit 33 % (42-52); Hemoglobin 11.1 g/dl (14.0-18.0); Mean Corpuscular HGB Conc 33 g/dl (31-36); Mean Corpuscular Hemoglobin 28 pg (27-31); Mean Corpuscular Volume 86 fL (80-94); Mean Platelet Volume 8 um3 (7.4-10.4); Red Blood Count 3.89 10^6/ul (4.0-5.4); Red Cell Distribution Width 13 % (10.5-15); White Blood Count 9.4 10^3/ul (3.5-10.8)
[2017-01-30 17:14] LABS: ALT 13 U/L (7-52); AST 21 U/L (13-39); Albumin 4.1 g/dL (3.2-5.2); Alkaline Phosphatase 81 U/L (34-104); Anion Gap 8 mmol/L (2-11); BUN/Creatinine Ratio 12.3 (8-20); Blood Urea Nitrogen 27 mg/dL (6-24); C Reactive Protein < 1.00 mg/L (< 5.00); CO2 Carbon Dioxide 25 mmol/L (22-32); Calcium 9.2 mg/dL (8.6-10.3); Chloride 95 mmol/L (101-111); EGFR African American 44.3 (>60); EGFR Non-African American 34.4 (>60); Globulin 3.1 g/dL (2-4); Glucose 274 mg/dL (70-100); Potassium 3.8 mmol/L (3.5-5.0); Sodium 128 mmol/L (133-145); Total Protein 7.2 g/dL (6.4-8.9)
[2017-01-30 17:35] LABS: Lipase 51 U/L (11.0-82.0)
[2017-01-30] MEDS ORDERED: traMADol TAB* 50 MG PO ONE (17:56)
[2017-01-30] MEDS ORDERED: oxyCODONE/Acetamin 5/325 MG* TAB PO ONE (18:50)
--- NOTE | 2017-01-30 19:00 | ED ---
Yenny Sarkar Gabriel, scribed for Naveed Chao MD on 01/30/17 at 1626 . Abdominal Pain/Male - HPI Summary HPI Summary: This patient is a 36 year old M presenting to [facility] with a chief complaint of ABD pain that began at 1:30 earlier today. The patient rates the pain 7/10 in severity. He describes the pain as constant and sharp. Symptoms alleviated by nothing. Pt has taken Prilosec and Tylenol with no relief. Patient reports decreased PO intake. Patient denies nausea, painful urination, and BM pain. He has taken a 14 day course of Prilosec in the last 4 days. - History of Current Complaint Chief Complaint: EDAbdPain Stated Complaint: ABD PAIN/ NAUSEA Time Seen by Provider: 01/30/17 15:46 Hx Obtained From: Patient Onset/Duration: Still Present Timing: Constant Severity Currently: Severe Pain Intensity: 7 Pain Scale Used: 0-10 Numeric Location: Diffuse Radiates: No Character: Sharp Alleviating Factor(s): Nothing Associated Signs And Symptoms: Positive: Negative - painful urine, and BM pain.. Negative: Nausea - Allergies/Home Medications Allergies/Adverse Reactions: Allergies Allergy/AdvReac Type Severity Reaction Status Date / Time Gluten Meal Allergy Abdominal Verified 12/13/16 15:28 Pain PMH/Surg Hx/FS Hx/Imm Hx Previously Healthy: No Endocrine/Hematology History: Reports: Hx Diabetes - Type 1 Denies: Hx Anticoagulant Therapy, Hx Thyroid Disease Cardiovascular History: Denies: Hx Hypertension, Hx Pacemaker/ICD, Hx Peripheral Vascular Disease, Other Cardiovascular Problems/Disorders Respiratory History: Reports: Hx Pneumonia Denies: Hx Asthma, Hx Chronic Bronchitis, Hx Chronic Obstructive Pulmonary Disease (COPD), Hx Cystic Fibrosis, Hx Lung Cancer, Hx Pleural Effusion, Hx Pulmonary Edema, Hx Pulmonary Embolism, Hx Seasonal Allergies, Hx Sleep Apnea, Other Respiratory Problems/Disorders GI History: Reports: Hx Gastroesophageal Reflux Disease, Hx Gastrointestinal Bleed, Hx Ulcer, Other GI Disorders - Gastroparesis Denies: Hx Cirrhosis, Hx Crohn's Disease, Hx Diverticulosis, Hx Gall Bladder Disease, Hx Hiatal Hernia, Hx Irritable Bowel, Hx Jaundice, Hx Obstructive Bowel , Hx Ileostomy, Hx Pyloric Stenosis History: Reports: Other Problems/Disorders - chronic kidney disease Denies: Hx Kidney Stones, Hx Renal Disease Musculoskeletal History: Denies: Hx Arthritis, Hx Osteoporosis Sensory History: Reports: Hx Vision Problem Denies: Hx Cataracts, Hx Contacts or Glasses, Hx Eye Injury, Hx Eye Prosthesis, Hx Glaucoma, Hx Macular Degeneration, Hx Deafness, Hx Hearing Aid, Hx Hearing Problem, Other Sensory Impairments Opthamlomology History: Reports: Hx Vision Problem Denies: Hx Cataracts, Hx Contacts or Glasses, Hx Eye Injury, Hx Eye Prosthesis, Hx Glaucoma, Hx Macular Degeneration, Other Sensory Impairments Neurological History: Denies: Hx Dementia, Hx Headaches, Hx Seizures, Hx Transient Ischemic Attacks (TIA) Psychiatric History: Reports: Hx Anxiety, Hx Depression, Hx Inpatient Treatment , Hx Community Mental Health Tx, Hx Bipolar Disorder, Hx Substance Abuse Denies: Hx Eating Disorder, Hx Panic Disorder, Hx Post Traumatic Stress Disorder, Hx Schizophrenia, Hx of Violent Episodes Against Others, Other Psychiatric Issues/Disorders - Cancer History Hx Chemotherapy: No Hx Radiation Therapy: No - Surgical History Hx Anesthesia Reactions: No - Immunization History Date of Tetanus Vaccine: utd Date of Influenza Vaccine: no Infectious Disease History: No Infectious Disease History: Denies: Hx Hepatitis, Hx Human Immunodeficiency Virus (HIV), Hx of Known/ Suspected MRSA, Hx Shingles, Hx Tuberculosis, History Other Infectious Disease, Traveled Outside the [place] in Last 30 Days - Family History Known Family History: Negative: Cardiac Disease, Hypertension, Diabetes - Social History Alcohol Use: None Hx Substance Use: Yes Substance Use Type: Reports: Marijuana Substance Use Comment - Amount & Last Used: daily Hx Tobacco Use: Yes Smoking Status (MU): Light Every Day Tobacco Smoker Type: Cigarettes Amount Used/How Often: 1/2PPD a day and has smoked in the last 30 days Length of Time of Smoking/Using Tobacco: 20 years Have You Smoked in the Last Year: Yes Review of Systems Positive: Other - decreased PO intake Gastrointestinal: Negative - BM pain Positive: Abdominal Pain Genitourinary: Negative - pain on urination All Other Systems Reviewed And Are Negative: Yes Physical Exam - Summary Physical Exam Summary: The patient is well-nourished in no acute distress and in no acute pain. The skin is warm and dry and skin color reflects adequate perfusion. HEENT: ~The head is normocephalic and atraumatic. The pupils are equal and reactive. The conjunctivae are clear and without drainage. ~Nares are patent and without drainage. ~Mouth reveals moist mucous membranes and the throat is without erythema and exudate. ~The external ears are intact. The ear canals are patent and without drainage. The tympanic membranes are intact. Neck is supple with full range of motion and non-tender. There are no carotid bruits. ~There is no neck vein distension. Respiratory: Chest is non-tender. ~Lungs are clear to auscultation and breath sounds are symmetrical and equal. Cardiovascular: Heart is regular rate and rhythm. ~There is no murmur or rub auscultated. ~~There is no peripheral edema and pulses are symmetrical and equal. Abdomen: The abdomen is soft. There are normal bowel sounds heard in all four quadrants and there is no organomegaly palpated. Patient is tender in the epigastrium and also has bi lateral periphrenitis. Musculoskeletal: There is no back pain noted. ~Extremities are non-tender with full range of motion. ~There is good capillary refill. ~There is no peripheral edema or calf tenderness elicited. Neurological: Patient is alert and oriented to person, place and time. ~The patient has symmetrical motor strength in all four extremities. ~Cranial nerves are grossly intact. Deep tendon reflexes are symmetrical and equal in all four extremities. Psychiatric: The patient has an appropriate affect and does not exhibit any anxiety or depression. Triage Information Reviewed: Yes Vital Signs On Initial Exam: Initial Vitals Temp Pulse Resp BP Pulse Ox 98.5 F 100 16 168/100 100 01/30/17 13:32 01/30/17 13:32 01/30/17 13:32 01/30/17 13:32 01/30/17 13:32 Vital Signs Reviewed: Yes Diagnostics - Vital Signs Vital Signs Temp Pulse Resp BP Pulse Ox 01/30/17 15:09 98.9 F 95 16 153/99 100 01/30/17 13:32 98.5 F 100 16 168/100 100 - Laboratory Lab Results: Lab Results 01/30/17 01/30/17 01/30/17 Range/Units 16:49 16:49 16:49 WBC 9.4 (3.5-10.8) 10^3/ul RBC 3.89 L (4.0-5.4) 10^6/ul Hgb 11.1 L (14.0-18.0) g/dl Hct 33 L (42-52) % MCV 86 (80-94) fL MCH 28 (27-31) pg MCHC 33 (31-36) g/dl RDW 13 (10.5-15) % Plt Count 394 (150-450) 10^3/ul MPV 8 (7.4-10.4) um3 Neut % (Auto) 74.7 (38-83) % Lymph % (Auto) 17.3 L (25-47) % [place] % (Auto) 6.1 (1-9) % Eos % (Auto) 1.2 (0-6) % Baso % (Auto) 0.7 (0-2) % Absolute Neuts (auto) 7.0 (1.5-7.7) 10^3/ul Absolute Lymphs (auto) 1.6 (1.0-4.8) 10^3/ul Absolute Monos (auto) 0.6 (0-0.8) 10^3/ul Absolute Eos (auto) 0.1 (0-0.6) 10^3/ul Absolute Basos (auto) 0.1 (0-0.2) 10^3/ul Absolute Nucleated RBC 0 10^3/ul Nucleated RBC % 0 Sodium 128 L (133-145) mmol/L Potassium 3.8 (3.5-5.0) mmol/L Chloride 95 L (101-111) mmol/L Carbon Dioxide 25 (22-32) mmol/L Anion Gap 8 (2-11) mmol/L BUN 27 H (6-24) mg/dL Creatinine 2.19 H (0.67-1.17) mg/dL Est GFR ( Amer) 44.3 (>60) Est GFR (Non-Af Amer) 34.4 (>60) BUN/Creatinine Ratio 12.3 (8-20) Glucose 274 H (70-100) mg/dL Lactic Acid 2.4 H* (0.5-2.0) mmol/L Calcium 9.2 (8.6-10.3) mg/dL Total Bilirubin 0.30 (0.2-1.0) mg/dL AST 21 (13-39) U/L ALT 13 (7-52) U/L Alkaline Phosphatase 81 (34-104) U/L C-Reactive Protein < 1.00 (< 5.00) mg/L Total Protein 7.2 (6.4-8.9) g/dL Albumin 4.1 (3.2-5.2) g/dL Globulin 3.1 (2-4) g/dL Albumin/Globulin Ratio 1.3 (1-3) Lipase 51 (11.0-82.0) U/L Result Diagrams: 01/30/17 16:49 01/30/17 16:49 Lab Statement: Any lab studies that have been ordered have been reviewed, and results considered in the medical decision making process. Abdominal Pain Fem Course/Dx - Course Course Of Treatment: Mr. Simmons has had a recurrence of his epigastric pain. He has been given prilosec for it which has not helped. He has also been told in the past that he might have gastroparesis. His W/U here is unremarkable and I will give him some symptomatic relief for tonight and have him contact his PMD tomorrow. - Diagnoses Provider Diagnoses: Epigastric abdominal pain Discharge - Discharge Plan Condition: Stable Disposition: HOME Patient Education Materials: Epigastric Pain (ED) Referrals: oTby Edge MD [Primary Care Provider] - 3 Days Additional Instructions: Follow up with primary care provider in 3-4 days. RETURN TO THE EMERGENCY DEPARTMENT FOR CHANGING OR WORSENING SYMPTOMS. The documentation as recorded by the Yenny deutsch Gabriel accurately reflects the service I personally performed and the decisions made by me, Naveed Chao MD.
--- NOTE | 2017-01-30 19:13 | RAD ---
Indication: Nausea and epigastric abdominal pain. Comparison: December 22, 2016 Technique: Supine view of the abdomen. Report: Unremarkable bowel gas pattern. Small volume of stool in the colon without significant rectal distension. Negative for suspicious calcifications. Unremarkable soft tissue contours. IMPRESSION: Negative exam.
[2017-01-30 19:27] VITALS: BP 178/99
== END 2017-01-30 19:28 | disposition home or self-care (01) ==
LOC: ED 13:29
DX: R10.13 Epigastric pain (principal); F17.210 Nicotine dependence, cigarettes, uncomplicated
CPT/HCPCS: 36415; 74000; 80053; 83605; 83690; 85025; 86140; 99282; A9270-GY

== ENCOUNTER 2017-05-06 11:30 | Inpatient (IN) | payer OTHER ==
[2017-05-06] MEDS ORDERED: NS 0.9% 1000 ML* 1,000 ML IV ONE ×2 (12:35→15:50)
[2017-05-06] MEDS ORDERED: HYDROmorphone INJ* 1 MG/ML CARPUJECT SYRINGE IV ONE ×3 (12:36→17:43)
[2017-05-06] MEDS ORDERED: Metoclopramide IV* 5 MG/ML 2 ML VIAL IV ONE (12:36)
[2017-05-06 12:58] LABS: ABS Basophils 0.1 10^3/ul (0-0.2); ABS Eosinophils 0 10^3/ul (0-0.6); ABS Lymphocytes 1.3 10^3/ul (1.0-4.8); ABS Monocytes 0.5 10^3/ul (0-0.8); ABS Neutrophils 16.6 10^3/ul (1.5-7.7); ABS Nucleated RBC 0 10^3/ul; Eosinophil % 0 % (0-6); Hematocrit 36 % (42-52); Hemoglobin 12.6 g/dl (14.0-18.0); Lymphocyte % 7.3 % (25-47); Mean Corpuscular HGB Conc 35 g/dl (31-36); Mean Corpuscular Hemoglobin 29 pg (27-31); Mean Corpuscular Volume 83 fL (80-94); Mean Platelet Volume 8 um3 (7.4-10.4); Nucleated Red Blood Cells % 0; Platelet Count 583 10^3/ul (150-450); Red Blood Count 4.32 10^6/ul (4.0-5.4); Red Cell Distribution Width 14 % (10.5-15); White Blood Count 18.6 10^3/ul (3.5-10.8)
[2017-05-06 13:09] LABS: EGFR Non-African American 28.2 (>60)
[2017-05-06] MEDS ORDERED: Ondansetron INJ* 2 MG/ML VIAL IV ONE ×2 (14:18→15:50)
[2017-05-06] MEDS ORDERED: Morphine INJ* 4 MG/ML 1 ML CARPUJECT IV ONE (16:00)
[2017-05-06] MEDS ORDERED: Morphine INJ* 4 MG/ML 1 ML SYRINGE (NEW SYRINGE VERSION) ONE (16:05)
--- NOTE | 2017-05-06 17:07 | RAD ---
INDICATION: Abdominal pain COMPARISON: CT August 19, 2014 TECHNIQUE: Axial source images were acquired from the level hemidiaphragms to the symphysis pubis following administration of oral contrast only. Lung bases: The lung bases are clear. Liver: The liver is enlarged with findings of hepatic steatosis. Noncontrast imaging shows no evidence of a hepatic mass or ductal dilatation. Gallbladder: There are no calcified gallstones. There is no evidence of wall thickening or pericholecystic fluid.. Spleen: The spleen is normal in size. The noncontrast CT appearance is normal. Pancreas: Noncontrast imaging shows no pancreatic mass or ductal dilitation. Adrenal glands: No masses are identified. Kidneys/Bladder: There is nonobstructive right-sided nephrolithiasis. There is a 4 mm upper pole calculus and a 2 mm lower pole calculus. Noncontrast imaging shows no evidence of a renal mass. The bladder is unremarkable.. Adenopathy: There is no evidence of intraperitoneal or retroperitoneal adenopathy. Evaluation is limited without oral contrast. Fluid collections: There are no free or localized fluid collections. Vessels: The aorta and iliac vessels are normal in caliber. There are no significant atherosclerotic changes. The IVC appears normal Pelvic organs: The prostate and seminal vesicles appear normal GI tract: The oral contrast is in the stomach and proximal small bowel. The stomach is distended. The upper GI tract is otherwise unremarkable. There is limited evaluation of the colon due to lack of oral contrast. There is no obstructive process. The appendix is visualized and appears normal. Soft tissues: No soft tissue abnormalities of the extraperitoneal abdomen or pelvis are identified. Osseous structures: There are no acute osseous findings. IMPRESSION: 1. Hepatomegaly. 2. Distended stomach. 3. Nonobstructive right-sided nephrolithiasis.
[2017-05-06 18:05] LABS: Urine Appearance Clear; Urine Blood Negative (Negative); Urine Color Yellow; Urine Ketones Trace (Negative); Urine Protein 3+(>=500 mg/dL) (Negative); Urine Specific Gravity 1.021 (1.010-1.030); Urine Urobilinogen Negative (Negative)
--- NOTE | 2017-05-06 18:23 | RAD ---
INDICATION: Diabetic ketoacidosis hyperinflation COMPARISON: March 30, 2016 TECHNIQUE: An AP portable view obtained at 1800 hours is submitted. FINDINGS: Bones/Soft Tissues: There are no acute bony findings. There is a metallic foreign body in the left neck, unchanged Cardiomediastinal: The cardiomediastinal silhouette is normal. Lungs: There are no infiltrates. Pleura: There are no pleural effusions. Other: None IMPRESSION: NO ACTIVE DISEASE.
[2017-05-06] MEDS ORDERED: NS 0.9% 1000 ML* 2,000 ML IV ONE (18:41)
[2017-05-06] MEDS ORDERED: Acetaminophen TAB* 325 MG PO PRN (18:42)
[2017-05-06] MEDS ORDERED: Insulin REGULAR(*) 1 UNITS UNIT IV PUSH ONE (18:46)
[2017-05-06] MEDS ORDERED: POTASSIUM ACETATE IV ONE ×2 (18:47)
[2017-05-06] MEDS ORDERED: NS 0.9% IV ONE ×2 (18:47)
[2017-05-06] MEDS ORDERED: Insulin REGULAR IVPB 100 UNITS/100 ML UNIT IVPB SCH (19:00)
[2017-05-06] MEDS ORDERED: Al Hydrox/Mg Hydrox/Simet LIQ* 30 ML UDC PO PRN (19:49)
[2017-05-06] MEDS ORDERED: HYDROmorphone INJ* 2 MG/ML CARPUJECT SYRINGE IV SLOW PU ONE (19:49)
[2017-05-06] MEDS ORDERED: NS IV ONE (20:00)
[2017-05-06] MEDS ORDERED: KCL IV ONE (20:00)
[2017-05-06] MEDS ORDERED: Pantoprazole IV* 40 MG ONE (20:21)
[2017-05-06] MEDS: Pantoprazole IV* 40 MG IV SCH (20:27)
[2017-05-06] MEDS ORDERED: NS 0.9% 1000 ML* 1,000 ML IV SCH (20:30)
[2017-05-06] MEDS: Heparin VIAL(*) 5000 UNITS/ML VIAL (FIVE THOUSAND) SUBCUT SCH (21:11)
[2017-05-06] MEDS ORDERED: hydrALAZINE IV* 20 MG/ML VIAL IV SLOW PU ONE (21:43)
--- NOTE | 2017-05-06 22:09 | ED ---
Eva Sarkar Thomas, scribed for Naveed Chao MD on 05/06/17 at 1248 . Abdominal Pain/Male - HPI Summary HPI Summary: The patient is a 37 year old male complaining of constant abdominal pain that began this morning. The patient additionally complains of 5 or 6 episodes of vomiting. He last ate last night at 19:00. The patient has a history of gastroparesis and diabetes - History of Current Complaint Chief Complaint: EDAbdPain Stated Complaint: ABD PAIN Time Seen by Provider: 05/06/17 11:43 Hx Obtained From: Patient Onset/Duration: Sudden Onset Timing: Constant Severity Currently: Severe Pain Intensity: 8 Pain Scale Used: 0-10 Numeric Aggravating Factor(s): Nothing Alleviating Factor(s): Position Associated Signs And Symptoms: Positive: Vomiting - Allergies/Home Medications Allergies/Adverse Reactions: Allergies Allergy/AdvReac Type Severity Reaction Status Date / Time gluten Allergy Abdominal Verified 05/06/17 12:52 Pain Home Medications: Home Medications Insulin GLARGINE(*) [Lantus(*)] 24 units SUBCUT DAILY 05/06/17 [History Confirmed 05/06/17] Insulin LISPRO* [HumaLOG*] 0 - 10 units SUBCUT ACHS 05/06/17 [History Confirmed 05/06/17] PMH/Surg Hx/FS Hx/Imm Hx Endocrine/Hematology History: Reports: Hx Diabetes - Type 1 Denies: Hx Anticoagulant Therapy, Hx Thyroid Disease Cardiovascular History: Denies: Hx Hypertension, Hx Pacemaker/ICD, Hx Peripheral Vascular Disease, Other Cardiovascular Problems/Disorders Respiratory History: Reports: Hx Pneumonia Denies: Hx Asthma, Hx Chronic Bronchitis, Hx Chronic Obstructive Pulmonary Disease (COPD), Hx Cystic Fibrosis, Hx Lung Cancer, Hx Pleural Effusion, Hx Pulmonary Edema, Hx Pulmonary Embolism, Hx Seasonal Allergies, Hx Sleep Apnea, Other Respiratory Problems/Disorders GI History: Reports: Hx Gastroesophageal Reflux Disease, Hx Gastrointestinal Bleed, Hx Ulcer, Other GI Disorders - Gastroparesis Denies: Hx Cirrhosis, Hx Crohn's Disease, Hx Diverticulosis, Hx Gall Bladder Disease, Hx Hiatal Hernia, Hx Irritable Bowel, Hx Jaundice, Hx Obstructive Bowel , Hx Ileostomy, Hx Pyloric Stenosis History: Reports: Other Problems/Disorders - chronic kidney disease Denies: Hx Kidney Stones, Hx Renal Disease Musculoskeletal History: Denies: Hx Arthritis, Hx Osteoporosis Sensory History: Reports: Hx Vision Problem Denies: Hx Cataracts, Hx Contacts or Glasses, Hx Eye Injury, Hx Eye Prosthesis, Hx Glaucoma, Hx Macular Degeneration, Hx Deafness, Hx Hearing Aid, Hx Hearing Problem, Other Sensory Impairments Opthamlomology History: Reports: Hx Vision Problem Denies: Hx Cataracts, Hx Contacts or Glasses, Hx Eye Injury, Hx Eye Prosthesis, Hx Glaucoma, Hx Macular Degeneration, Other Sensory Impairments Neurological History: Denies: Hx Dementia, Hx Headaches, Hx Seizures, Hx Transient Ischemic Attacks (TIA) Psychiatric History: Reports: Hx Anxiety, Hx Depression, Hx Inpatient Treatment , Hx Community Mental Health Tx, Hx Bipolar Disorder, Hx Substance Abuse Denies: Hx Eating Disorder, Hx Panic Disorder, Hx Post Traumatic Stress Disorder, Hx Schizophrenia, Hx of Violent Episodes Against Others, Other Psychiatric Issues/Disorders - Cancer History Hx Chemotherapy: No Hx Radiation Therapy: No - Surgical History Hx Anesthesia Reactions: No - Immunization History Date of Tetanus Vaccine: utd Date of Influenza Vaccine: no Infectious Disease History: No Infectious Disease History: Denies: Hx Hepatitis, Hx Human Immunodeficiency Virus (HIV), Hx of Known/ Suspected MRSA, Hx Shingles, Hx Tuberculosis, History Other Infectious Disease, Traveled Outside the [place] in Last 30 Days - Family History Known Family History: Negative: Cardiac Disease, Hypertension, Diabetes Family History: NON CONTRIBUTORY - Social History Alcohol Use: None Hx Substance Use: Yes Substance Use Type: Reports: Marijuana Substance Use Comment - Amount & Last Used: daily Hx Tobacco Use: Yes Smoking Status (MU): Light Every Day Tobacco Smoker Type: Cigarettes Amount Used/How Often: 1/2PPD a day and has smoked in the last 30 days Length of Time of Smoking/Using Tobacco: 20 years Have You Smoked in the Last Year: Yes Review of Systems Negative: Fever Positive: Abdominal Pain, Vomiting All Other Systems Reviewed And Are Negative: Yes Physical Exam - Summary Physical Exam Summary: Appearance: The patient is well-nourished in no acute distress and in no acute pain. Skin: The skin is warm and diaphoretic and skin color reflects adequate perfusion. HEENT: ~The head is normocephalic and atraumatic. The pupils are equal and reactive. The conjunctivae are clear and without drainage. ~Nares are patent and without drainage. ~Mouth reveals moist mucous membranes and the throat is without erythema and exudate. ~The external ears are intact. The ear canals are patent and without drainage. The tympanic membranes are intact. Neck: the neck is supple with full range of motion and non-tender. There are no carotid bruits. ~There is no neck vein distension. Respiratory: Chest is non-tender. ~Lungs are clear to auscultation and breath sounds are symmetrical and equal. Cardiovascular: Heart is tachycardic with regular rhythm. ~There is no murmur or rub auscultated. ~~There is no peripheral edema and pulses are symmetrical and equal. Abdomen: The abdomen is soft and with mild epigastric tenderness. ~There are normal bowel sounds heard in all four quadrants and there is no organomegaly palpated. Musculoskeletal: There is no back tenderness noted. ~Extremities are non-tender with full range of motion. ~There is good capillary refill. ~There is no peripheral edema or calf tenderness elicited. Neurological: Patient is alert and oriented to person, place and time. ~The patient has symmetrical motor strength in all four extremities. ~Cranial nerves are grossly intact. Deep tendon reflexes are symmetrical and equal in all four extremities. Psychiatric: The patient has an appropriate affect and does not exhibit any anxiety or depression. Triage Information Reviewed: Yes Vital Signs On Initial Exam: Initial Vitals Temp Pulse Resp BP Pulse Ox 96.9 F 132 30 193/114 99 05/06/17 11:33 05/06/17 11:33 05/06/17 11:33 05/06/17 11:33 05/06/17 11:33 Vital Signs Reviewed: Yes Diagnostics - Vital Signs Vital Signs Temp Pulse Resp BP Pulse Ox 05/06/17 11:33 96.9 F 132 30 193/114 99 - Laboratory Lab Results: Lab Results 05/06/17 05/06/17 05/06/17 Range/Units 12:28 12:28 12:28 WBC 18.6 H (3.5-10.8) 10^3/ul RBC 4.32 (4.0-5.4) 10^6/ul Hgb 12.6 L (14.0-18.0) g/dl Hct 36 L (42-52) % MCV 83 (80-94) fL MCH 29 (27-31) pg MCHC 35 (31-36) g/dl RDW 14 (10.5-15) % Plt Count 583 H (150-450) 10^3/ul MPV 8 (7.4-10.4) um3 Neut % (Auto) 89.6 H (38-83) % Lymph % (Auto) 7.3 L (25-47) % [place] % (Auto) 2.7 (1-9) % Eos % (Auto) 0 (0-6) % Baso % (Auto) 0.4 (0-2) % Absolute Neuts (auto) 16.6 H (1.5-7.7) 10^3/ul Absolute Lymphs (auto) 1.3 (1.0-4.8) 10^3/ul Absolute Monos (auto) 0.5 (0-0.8) 10^3/ul Absolute Eos (auto) 0 (0-0.6) 10^3/ul Absolute Basos (auto) 0.1 (0-0.2) 10^3/ul Absolute Nucleated RBC 0 10^3/ul Nucleated RBC % 0 VBG pH (7.33-7.43) VBG pCO2 (41-51) mmHg VBG pO2 (35-45) mmHg VBG HCO3 (24-28) mmol/L VBG O2 Saturation (70-80) % VBG Base Excess (0-4) Sodium 131 L (133-145) mmol/L Potassium 4.2 (3.5-5.0) mmol/L Chloride 93 L (101-111) mmol/L Carbon Dioxide 21 L (22-32) mmol/L Anion Gap 17 H (2-11) mmol/L BUN 29 H (6-24) mg/dL Creatinine 2.59 H (0.67-1.17) mg/dL Est GFR ( Amer) 36.3 (>60) Est GFR (Non-Af Amer) 28.2 (>60) BUN/Creatinine Ratio 11.2 (8-20) Glucose 351 H (70-100) mg/dL Lactic Acid 5.2 H* (0.5-2.0) mmol/L Calcium 10.9 H (8.6-10.3) mg/dL Total Bilirubin 0.50 (0.2-1.0) mg/dL AST 23 (13-39) U/L ALT 16 (7-52) U/L Alkaline Phosphatase 87 (34-104) U/L C-Reactive Protein < 1.00 (< 5.00) mg/L Total Protein 8.6 (6.4-8.9) g/dL Albumin 4.9 (3.2-5.2) g/dL Globulin 3.7 (2-4) g/dL Albumin/Globulin Ratio 1.3 (1-3) Lipase 61 (11.0-82.0) U/L Urine Color Urine Appearance Urine pH (5-9) Ur Specific [place] (1.010-1.030) Urine Protein (Negative) Urine Ketones (Negative) Urine Blood (Negative) Urine Nitrate (Negative) Urine Bilirubin (Negative) Urine Urobilinogen (Negative) Ur Leukocyte Esterase (Negative) Urine WBC (Auto) (Absent) Urine RBC (Auto) (Absent) Urine Bacteria (Absent) Urine Glucose (Negative) Urine Ascorbic Acid (Negative) Salicylates (<30) mg/dL Acetaminophen mcg/mL U Cannabinoids Screen (None Detect) Serum Alcohol (<10) mg/dL Influenza A (Rapid) (Negative) Influenza B (Rapid) (Negative) 05/06/17 05/06/17 05/06/17 Range/Units 17:53 17:53 17:56 WBC (3.5-10.8) 10^3/ul RBC (4.0-5.4) 10^6/ul Hgb (14.0-18.0) g/dl Hct (42-52) % MCV (80-94) fL MCH (27-31) pg MCHC (31-36) g/dl RDW (10.5-15) % Plt Count (150-450) 10^3/ul MPV (7.4-10.4) um3 Neut % (Auto) (38-83) % Lymph % (Auto) (25-47) % [place] % (Auto) (1-9) % Eos % (Auto) (0-6) % Baso % (Auto) (0-2) % Absolute Neuts (auto) (1.5-7.7) 10^3/ul Absolute Lymphs (auto) (1.0-4.8) 10^3/ul Absolute Monos (auto) (0-0.8) 10^3/ul Absolute Eos (auto) (0-0.6) 10^3/ul Absolute Basos (auto) (0-0.2) 10^3/ul Absolute Nucleated RBC 10^3/ul Nucleated RBC % VBG pH (7.33-7.43) VBG pCO2 (41-51) mmHg VBG pO2 (35-45) mmHg VBG HCO3 (24-28) mmol/L VBG O2 Saturation (70-80) % VBG Base Excess (0-4) Sodium (133-145) mmol/L Potassium (3.5-5.0) mmol/L Chloride (101-111) mmol/L Carbon Dioxide (22-32) mmol/L Anion Gap (2-11) mmol/L BUN (6-24) mg/dL Creatinine (0.67-1.17) mg/dL Est GFR ( Amer) (>60) Est GFR (Non-Af Amer) (>60) BUN/Creatinine Ratio (8-20) Glucose (70-100) mg/dL Lactic Acid (0.5-2.0) mmol/L Calcium (8.6-10.3) mg/dL Total Bilirubin (0.2-1.0) mg/dL AST (13-39) U/L ALT (7-52) U/L Alkaline Phosphatase (34-104) U/L C-Reactive Protein (< 5.00) mg/L Total Protein (6.4-8.9) g/dL Albumin (3.2-5.2) g/dL Globulin (2-4) g/dL Albumin/Globulin Ratio (1-3) Lipase (11.0-82.0) U/L Urine Color Yellow Urine Appearance Clear Urine pH 8.0 (5-9) Ur Specific [place] 1.021 (1.010-1.030) Urine Protein 3+(>=500 mg/dl) H (Negative) Urine Ketones Trace H (Negative) Urine Blood Negative (Negative) Urine Nitrate Negative (Negative) Urine Bilirubin Negative (Negative) Urine Urobilinogen Negative (Negative) Ur Leukocyte Esterase Negative (Negative) Urine WBC (Auto) Absent (Absent) Urine RBC (Auto) Absent (Absent) Urine Bacteria Absent (Absent) Urine Glucose 3+(>=500 mg/dl) H (Negative) Urine Ascorbic Acid * H (Negative) Salicylates (<30) mg/dL Acetaminophen mcg/mL U Cannabinoids Screen Presumptive positive H (None Detect) Serum Alcohol (<10) mg/dL Influenza A (Rapid) Negative (Negative) Influenza B (Rapid) Negative (Negative) 05/06/17 05/06/17 Range/Units 18:27 18:27 WBC (3.5-10.8) 10^3/ul RBC (4.0-5.4) 10^6/ul Hgb (14.0-18.0) g/dl Hct (42-52) % MCV (80-94) fL MCH (27-31) pg MCHC (31-36) g/dl RDW (10.5-15) % Plt Count (150-450) 10^3/ul MPV (7.4-10.4) um3 Neut % (Auto) (38-83) % Lymph % (Auto) (25-47) % [place] % (Auto) (1-9) % Eos % (Auto) (0-6) % Baso % (Auto) (0-2) % Absolute Neuts (auto) (1.5-7.7) 10^3/ul Absolute Lymphs (auto) (1.0-4.8) 10^3/ul Absolute Monos (auto) (0-0.8) 10^3/ul Absolute Eos (auto) (0-0.6) 10^3/ul Absolute Basos (auto) (0-0.2) 10^3/ul Absolute Nucleated RBC 10^3/ul Nucleated RBC % VBG pH 7.42 (7.33-7.43) VBG pCO2 35 L (41-51) mmHg VBG pO2 91 H (35-45) mmHg VBG HCO3 23.8 L (24-28) mmol/L VBG O2 Saturation 95.0 H (70-80) % VBG Base Excess -1.4 L (0-4) Sodium (133-145) mmol/L Potassium (3.5-5.0) mmol/L Chloride (101-111) mmol/L Carbon Dioxide (22-32) mmol/L Anion Gap (2-11) mmol/L BUN (6-24) mg/dL Creatinine (0.67-1.17) mg/dL Est GFR ( Amer) (>60) Est GFR (Non-Af Amer) (>60) BUN/Creatinine Ratio (8-20) Glucose (70-100) mg/dL Lactic Acid (0.5-2.0) mmol/L Calcium (8.6-10.3) mg/dL Total Bilirubin (0.2-1.0) mg/dL AST (13-39) U/L ALT (7-52) U/L Alkaline Phosphatase (34-104) U/L C-Reactive Protein (< 5.00) mg/L Total Protein (6.4-8.9) g/dL Albumin (3.2-5.2) g/dL Globulin (2-4) g/dL Albumin/Globulin Ratio (1-3) Lipase (11.0-82.0) U/L Urine Color Urine Appearance Urine pH (5-9) Ur Specific [place] (1.010-1.030) Urine Protein (Negative) Urine Ketones (Negative) Urine Blood (Negative) Urine Nitrate (Negative) Urine Bilirubin (Negative) Urine Urobilinogen (Negative) Ur Leukocyte Esterase (Negative) Urine WBC (Auto) (Absent) Urine RBC (Auto) (Absent) Urine Bacteria (Absent) Urine Glucose (Negative) Urine Ascorbic Acid (Negative) Salicylates < 2.50 (<30) mg/dL Acetaminophen < 15 mcg/mL U Cannabinoids Screen (None Detect) Serum Alcohol < 10 (<10) mg/dL Influenza A (Rapid) (Negative) Influenza B (Rapid) (Negative) Result Diagrams: 05/06/17 12:28 05/06/17 12:28 Lab Statement: Any lab studies that have been ordered have been reviewed, and results considered in the medical decision making process. - CT CT Abdomen/Pelvis CT Interpretation: No Acute Changes - 1. Hepatomegaly. 2. Distended stomach. 3. Nonobstructive right-sided nephrolithiasis. Dr. Chao has reviewed this report. CT Interpretation Completed By: Radiologist Abdominal Pain Fem Course/Dx - Course Course Of Treatment: I've taken care of Mr. Simmons a number of times for exacerbations of his gastroparesis which is what this seems like to me. Usually he gets better with meds and fluids and goes home. Today he has a leukocytosis and a metabolic acidosis and is not improving much with my ministrations. I have asked the hospitalist service to evaluate him for admission. - Diagnoses Provider Diagnoses: Abdominal pain, Metabolic acidosis, Gastroparesis - Provider Notifications Discussed Care Of Patient With: Torri Juan Time Discussed With Above Provider: 21:00 Instructed by Provider To: Admit As Inpatient Discharge - Discharge Plan Condition: Stable Disposition: ADMITTED TO [facility] documentation as recorded by the Eva deutsch Thomas accurately reflects the service I personally performed and the decisions made by me, Naveed Chao MD.
[2017-05-06] MEDS ORDERED: Insulin GLARGINE(*) 1 UNITS UNIT SUBCUT ONE (22:29)
[2017-05-06] MEDS: NS 0.9% 1000 ML* 1,000 ML IV SCH (22:30)
[2017-05-06] MEDS ORDERED: Dextrose 50% Syringe 50 ML* 25 GM/50 ML SYRINGE IV PUSH PRN (22:31)
--- NOTE | 2017-05-06 22:34 | HP ---
ADDENDUM NOW INCLUDED ON THIS REPORT CC: Dr. Toby Edge* HISTORY AND PHYSICAL: DATE OF ADMISSION: 05/06/17 TIME OF ADMISSION: 6 p.m. CHIEF COMPLAINT: Nausea, vomiting, abdominal pain. HISTORY OF PRESENT ILLNESS: This is a 37-year-old man with history of type 1 diabetes and gastroparesis, who presented to the emergency department today after 1 day of nausea, vomiting, and abdominal pain. He does believe that this feels similar to a gastroparesis flare; however, he also believes he may have eaten food contaminated with gluten last night. He first experienced nausea and vomiting after dinner last night, which he got from the food pantry; so did not have control over the ingredients. The emesis was nonbloody and associated with epigastric abdominal pain that was nonradiating. He continued to have severe abdominal pain. He denies chest pain, shortness of breath, sore throat, diarrhea, fevers, chill, headache, blurry vision, ulcers, or changes in his urine output. He reports adherence to his insulin and his diet. He denies sick contact. He denies recent alcohol or substance abuse. PAST MEDICAL HISTORY: 1. Type 1 diabetes, diagnosed at age 4. 2. Gastroparesis. 3. Depression. 4. PTSD. 5. Celiac disease. HOME MEDICATIONS: 1. Basaglar 24 units in the morning and Humalog sliding scale. For the sliding scale, he starts with 1 unit at a blood glucose of 200 and increases the dose by 1 unit for every 25 above 200, but never more than 10 units at meals. 2. Reglan 10 mg b.i.d. SOCIAL HISTORY: He lives at home with his in [place]. He does not work and is on SSI. He smokes cigarettes and marijuana. He denies alcohol or illicit substance use. REVIEW OF SYSTEMS: As per HPI. The remainder of 14-point review of systems is negative. PHYSICAL EXAMINATION GENERAL: Thin young man, who appears stated age, writhing in pain on the ED stretcher. He is diaphoretic and ill appearing. VITAL SIGNS: Temp 96.9, heart rate 128, respirations 18, pulse ox 99% on room air, blood pressure 168/119. HEENT: Pupils equal, round, reactive to light. No conjunctival injection. No nystagmus. Moist mucosa. No pharyngeal exudates or erythema. NECK: No cervical adenopathy. No JVP. No nuchal rigidity. LUNGS: Clear bilaterally. CHEST: Tachycardic, unable to appreciate murmurs. PMI nondisplaced. ABDOMEN: No CVA tenderness. Soft, diffusely tender to palpation, but worse in the epigastrium. No guarding or rebound. No Brizuela sign. Abdomen is scaphoid. EXTREMITIES: No edema, no rashes. Feet are clean and without ulcers. DIAGNOSTIC STUDIES/LAB DATA: CBC 18.6, hemoglobin 12.6, platelets 583, 89.6% neutrophils. Sodium 131, potassium 4.2, chloride 93, bicarb 21, BUN 29, creatinine 2.59, glucose 351, lactic acid 5.2. Lipase 61. CT abdomen and pelvis shows hepatomegaly and distended stomach and nonobstructive right-sided nephrolithiasis. ASSESSMENT AND PLAN: This is a 37-year-old man with history of type 1 diabetes , gastroparesis, and celiac disease, who presents with 1 day of nausea, vomiting , and abdominal pain. 1. Anion gap metabolic acidosis. The etiology of this is unclear and needs further workup. He does have an elevated lactate, so he may have lactic acidosis from sepsis or he may have diabetic ketoacidosis. Check a stat urinalysis for ketones. This will determine his course of treatment and whether he needs an insulin drip. If his ketones are positive, suggestive of diabetic ketoacidosis, I suspect the underlying etiology of the diabetic ketoacidosis is a gastroparesis flare; however, it will also be important to rule out an infectious source as well as an ischemic source, so I am also checking a stat EKG, chest x-ray, and blood cultures. I am also checking a blood alcohol level, salicylates, acetaminophen to workup the etiology of both a gastroparesis flare and diabetic ketoacidosis if that is indeed what he has. 2. Systemic inflammatory response syndrome criteria with tachycardia, leukocytosis, and tachypnea. This can certainly all be a result of gastroparesis and/or diabetic ketoacidosis; however, I will continue with infectious workup as above with blood cultures, urinalysis, chest x-ray, and influenza swab. No antibiotics are indicated at this point, however, I will follow up on this workup closely and begin them as necessary. 3. Hyponatremia. This is actually pseudohyponatremia in the setting of hyperglycemia. 4. Acute renal failure. I suspect this is prerenal in the setting of gastroparesis versus diabetic ketoacidosis versus sepsis. He is severely volume deplete, so he needs more aggressive IV fluid resuscitation and I am bolusing him now. 5. Thrombocytosis. Again, this could be a reaction to a stress response and/ or sepsis noted. 6. Type 1 insulin. Check A1c and I am waiting the urine ketones to see if he needs an insulin drip or to be resumed on his home insulin regimen of Basaglar 24 units in the morning and a Humalog sliding scale. 7. Hypertension. I suspect this is related to his current pain and does not warrant treatment at this time; however, should be followed up. 8. History of posttraumatic stress disorder, depression, and suicidal ideation with a recent U admission. No active psychiatric complaints and no home psychiatric medications. 9. DVT prophylaxis. Heparin subcu. 10. Diet, n.p.o. for likely gastroparesis. 11. Disposition: Admit to Medicine, disposition for floor versus ICU is pending his UA for ketones. ADDENDUM: Ms. Simmons today came back positive for ketonuria. As such, I will treat him for DKA and admit him to the ICU for an insulin drip. Give bolus of regular insulin at 0.1 units/kg now with 6 units and then start insulin drip at 0.1 units/kg per hour at 6 units per hour. He is profoundly volume deplete and needs more normal saline bolus right now until a bag of saline with potassium can be prepared. I am adding 20 mEq of potassium to each bag of normal saline and checking q.4 BMPs tonight. I have discussed the case with Dr. Edge, who will assume his care in the morning. [id number]/[facility]PS #: [id number]/CPS #: [id number] DESHAUN
--- NOTE | 2017-05-06 22:59 | HP ---
HISTORY AND PHYSICAL: DATE OF ADMISSION: ADDENDUM: Ms. Simmons today came back positive for ketonuria. As such, I will treat him for DKA and admit him to the ICU for an insulin drip. Give bolus of regular insulin at 0.1 units/kg now with 6 units and then start insulin drip at 0.1 units/kg per hour at 6 units per hour. He is profoundly volume deplete and needs more normal saline bolus right now until a bag of saline with potassium can be prepared. I am adding 20 mEq of potassium to each bag of normal saline and checking q.4 BMPs tonight. I have discussed the case with Dr. Edge, who will assume his care in the morning. [id number]/[facility] #: [id number]
[2017-05-06] MEDS: Insulin LISPRO* 1 UNITS UNIT SUBCUT SCH (23:18)
[2017-05-06] MEDS: HYDROmorphone INJ* 2 MG/ML CARPUJECT SYRINGE IV SLOW PU PRN (23:19)
[2017-05-06] MEDS ORDERED: Ondansetron INJ* 2 MG/ML VIAL ONE (23:43)
[2017-05-07] MEDS: HYDROmorphone INJ* 2 MG/ML CARPUJECT SYRINGE IV SLOW PU PRN ×4 (04:39→20:45)
[2017-05-07] MEDS: NS 0.9% 1000 ML* 1,000 ML IV SCH (04:49)
[2017-05-07] MEDS: Heparin VIAL(*) 5000 UNITS/ML VIAL (FIVE THOUSAND) SUBCUT SCH ×3 (04:49→20:25)
[2017-05-07 05:48] LABS: ABS Basophils 0.1 10^3/ul (0-0.2); ABS Eosinophils 0.1 10^3/ul (0-0.6); ABS Monocytes 1.2 10^3/ul (0-0.8); ABS Neutrophils 14.6 10^3/ul (1.5-7.7); ABS Nucleated RBC 0 10^3/ul; Eosinophil % 0.3 % (0-6); Hematocrit 30 % (42-52); Hemoglobin 10.1 g/dl (14.0-18.0); Lymphocyte % 11.1 % (25-47); Mean Corpuscular HGB Conc 34 g/dl (31-36); Mean Corpuscular Hemoglobin 29 pg (27-31); Mean Corpuscular Volume 86 fL (80-94); Mean Platelet Volume 8 um3 (7.4-10.4); Nucleated Red Blood Cells % 0; Platelet Count 430 10^3/ul (150-450); Red Blood Count 3.49 10^6/ul (4.0-5.4); Red Cell Distribution Width 14 % (10.5-15); White Blood Count 17.9 10^3/ul (3.5-10.8)
[2017-05-07 06:03] LABS: EGFR Non-African American 35.9 (>60)
--- NOTE | 2017-05-07 08:28 | PN ---
Subjective - Subjective Reason for Note: Progress Note History: ICU acute care I obtained the account of Barron Mederos's presentation from the patient and also Torri Juan DO's admitting history and physical. He has had longstanding T1D that is poorly controlled and has missed 5 appointments at my outpatient diabetes office in a row. He states his 7 day glucose average runs between 280 - 300 mg/dl. He is giving himself basal insulin basaglar (glargine ) 24 units qam and humalog insulin ins:carb 04/11 and correction mg/dl >150 mg/dl. He ate pre-packaged meat from the food pantry and is not sure it was gluten free (he has celiac disease). He awoke at 3 am with severe abdominal pain , nausea and vomiting. He had 30 mins of diarrhea. He states "I have been fine , this happened out of the blue". He has been under stress as he and his are trying to move to [place] and also his is actively cutting herself. He states the reason for his hospitalizations are pain and that my office has not treated his pain for 3 years. He denies fevers, sweats, chills. He states he doesn't have the flu - no cough/sputum. He has no skin infections and no urinary symptoms. The pain is situated in the upper abdomen. He has been storing his insulin in the fridge and doesn't think it is spoiled. He has had anxiety and has been using his 's clonazepam at night. He has had a "large bottle" of diclofenac 75 mg which he has completed which he denies as caused him any problems. He smokes tobacco and marijuana (which helps with is pain). 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 This is due to being "stiffed" by medicaid transport Active Problems: Active Problems Abdominal pain (Acute) R10.9 - Resolved with treatment of hyperglycemia - Anion gap closed - not acidotic DVT prophylaxis (Acute) [id number] Low risk - encourage ambulation Full code status (Acute 06/14/14) Z78.9 Hypertension (Acute) I10 A. Improved - no hx of HTN in past. CT scan of head - Negative. Remains tachycardic Plan Hold antihypertensives for now. Intractable abdominal pain (Acute 06/14/14) R10.9 Nausea & vomiting (Acute 05/15/14) R11.[address] abd on admission - actually showed improvement of his esophagitis. Suspect this is cyclic vomiting in setting of heavy marijuana use - though patient insists it helps his nausea. 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 Erosive esophagitis (Chronic 11/10/13) K22.10 Gastroparesis (Chronic) K31.84 History of anxiety (Chronic) Z86.59 History of depression (Chronic) Z86.59 History of gastroesophageal reflux (GERD) (Chronic) Z87.19 History of neuropathy (Chronic) Z86.69 A. Stable - Continue Gabapentin Hx of bipolar disorder (Chronic) Z86.59 patient now with suicidal ideations not actively treated for bipolar disease psych consult requested --> recommendation for inpatient psych hospitalization Marijuana use (Chronic) F12.10 A. As mentioned above Plan Recommended quitting - Patient not interested PTSD (post-traumatic stress disorder) (Chronic) F43.10 Right nephrolithiasis (Chronic) N20.0 Smoker (Chronic) F17.200 Current Medications: Current Medications Acetaminophen (Tylenol Tab*) 650 mg PO Q4H PRN PRN Reason: FEVER/PAIN Al Hydrox/Mg Hydrox/Simethicone (Maalox Plus*) 30 ml PO Q4H PRN PRN Reason: INDIGESTION Dextrose (D50w Syringe 50 Ml*) 12.5 gm IV PUSH .FOR FS < 60 - SS PRN PRN Reason: FS < 60 Heparin Sodium (Porcine) (Heparin Vial(*)) 5,000 units SUBCUT Q8HR KOMAL Last Admin: 05/07/17 04:49 Dose: Not Given Hydromorphone HCl (Dilaudid Inj*) 2 mg IV SLOW PU Q4H PRN PRN Reason: PAIN Last Admin: 05/07/17 04:39 Dose: 2 mg Sodium Chloride (Ns 0.9% 1000 Ml*) 1,000 mls @ 100 mls/hr IV PER RATE [facility] Last Admin: 05/07/17 04:49 Dose: 100 mls/hr Insulin Human Lispro (Humalog*) 0 units SUBCUT ACHS [facility] PRN Reason: Protocol Last Admin: 05/06/17 23:18 Dose: 4 units Ondansetron HCl (Zofran Inj*) 4 mg IV Q6H PRN PRN Reason: NAUSEA Pantoprazole Sodium (Protonix Iv*) 40 mg IV Q24H [facility] Last Admin: 05/06/17 20:27 Dose: Not Given Home Medications: Home Medications Medication Instructions Recorded Confirmed Type Metoclopramide TAB* [Reglan TAB*] 10 mg PO BID #60 tab 12/17/16 05/06/17 Rx Insulin GLARGINE(*) [Lantus(*)] 24 units SUBCUT DAILY 05/06/17 05/06/17 History Insulin LISPRO* [HumaLOG*] 0 - 10 units SUBCUT ACHS 05/06/17 05/06/17 History Allergies: Allergies Allergy/AdvReac Type Severity Reaction Status Date / Time gluten Allergy Abdominal Verified 05/06/17 12:52 Pain - Social History Living Situation: He lives with his in [place] and is attempting to move to [facility] Objective - Vital Signs Vital Signs: Vital Signs 05/06/17 05/06/17 05/06/17 19:00 19:26 19:30 Temperature 98.8 F Pulse Rate 88 120 Respiratory 30 Rate Blood Pressure 160/99 196/124 179/114 (mmHg) O2 Sat by Pulse 100 98 Oximetry 05/06/17 05/06/17 05/06/17 19:34 19:44 20:00 Temperature Pulse Rate 120 121 123 Respiratory 45 30 Rate Blood Pressure 200/136 196/124 (mmHg) O2 Sat by Pulse 100 98 98 Oximetry 05/06/17 05/06/17 05/06/17 20:01 20:09 20:30 Temperature Pulse Rate 130 98 Respiratory 26 34 3 Rate Blood Pressure 187/114 (mmHg) O2 Sat by Pulse 99 89 Oximetry 05/06/17 05/06/17 05/06/17 20:40 20:45 21:00 Temperature Pulse Rate 98 97 Respiratory 30 12 10 Rate Blood Pressure 167/106 167/106 (mmHg) O2 Sat by Pulse 99 99 Oximetry 05/06/17 05/06/17 05/06/17 21:01 21:15 21:30 Temperature Pulse Rate 106 99 100 Respiratory 20 15 10 Rate Blood Pressure 176/110 173/110 (mmHg) O2 Sat by Pulse 99 100 98 Oximetry 05/06/17 05/06/17 05/06/17 21:37 21:45 22:00 Temperature Pulse Rate 104 103 97 Respiratory 16 12 19 Rate Blood Pressure 170/108 174/112 (mmHg) O2 Sat by Pulse 98 98 99 Oximetry 05/06/17 05/06/17 05/06/17 22:15 22:19 22:30 Temperature Pulse Rate 102 102 104 Respiratory 16 10 15 Rate Blood Pressure 165/102 169/108 (mmHg) O2 Sat by Pulse 99 99 99 Oximetry 05/06/17 05/06/17 05/06/17 22:45 23:00 23:01 Temperature Pulse Rate 121 119 126 Respiratory 13 18 21 Rate Blood Pressure 145/96 158/96 (mmHg) O2 Sat by Pulse 99 98 99 Oximetry 05/06/17 05/06/17 05/06/17 23:15 23:19 23:30 Temperature Pulse Rate 130 113 Respiratory 31 31 8 Rate Blood Pressure 186/105 168/101 (mmHg) O2 Sat by Pulse 96 98 Oximetry 05/06/17 05/06/17 05/07/17 23:38 23:45 00:00 Temperature 98.6 F Pulse Rate 120 118 121 Respiratory 17 27 3 Rate Blood Pressure 173/103 164/96 (mmHg) O2 Sat by Pulse 98 98 98 Oximetry 05/07/17 05/07/17 05/07/17 00:15 00:17 00:18 Temperature Pulse Rate 116 116 113 Respiratory 22 17 12 Rate Blood Pressure 172/107 (mmHg) O2 Sat by Pulse 97 98 98 Oximetry 05/07/17 05/07/17 05/07/17 00:30 00:45 01:00 Temperature Pulse Rate 121 117 119 Respiratory 21 16 14 Rate Blood Pressure 163/104 165/104 (mmHg) O2 Sat by Pulse 97 97 95 Oximetry 05/07/17 05/07/17 05/07/17 01:15 01:30 01:45 Temperature Pulse Rate 113 111 105 Respiratory 13 16 10 Rate Blood Pressure 155/107 160/102 159/108 (mmHg) O2 Sat by Pulse 96 96 96 Oximetry 05/07/17 05/07/17 05/07/17 02:00 02:01 02:15 Temperature Pulse Rate 106 108 107 Respiratory 8 11 15 Rate Blood Pressure 168/110 164/103 (mmHg) O2 Sat by Pulse 96 97 97 Oximetry 05/07/17 05/07/17 05/07/17 02:30 02:45 03:00 Temperature Pulse Rate 105 108 103 Respiratory 11 13 17 Rate Blood Pressure 165/108 159/105 158/101 (mmHg) O2 Sat by Pulse 95 95 96 Oximetry 05/07/17 05/07/17 05/07/17 03:15 03:30 03:45 Temperature Pulse Rate 106 109 101 Respiratory 13 14 12 Rate Blood Pressure 157/101 143/89 154/99 (mmHg) O2 Sat by Pulse 95 97 95 Oximetry 05/07/17 05/07/17 05/07/17 03:51 04:00 04:15 Temperature 99.4 F Pulse Rate 101 104 Respiratory 12 12 Rate Blood Pressure 155/99 161/109 (mmHg) O2 Sat by Pulse 97 96 Oximetry 05/07/17 05/07/17 05/07/17 04:30 04:39 04:45 Temperature Pulse Rate 105 103 Respiratory 15 20 4 Rate Blood Pressure 135/93 175/107 (mmHg) O2 Sat by Pulse 97 98 Oximetry 05/07/17 05/07/17 05/07/17 05:00 05:15 05:30 Temperature Pulse Rate 100 100 104 Respiratory 6 15 20 Rate Blood Pressure 163/104 158/105 157/106 (mmHg) O2 Sat by Pulse 97 97 97 Oximetry 05/07/17 05/07/17 05/07/17 05:45 06:00 06:01 Temperature Pulse Rate 99 98 100 Respiratory 11 8 7 Rate Blood Pressure 161/105 147/105 (mmHg) O2 Sat by Pulse 98 97 98 Oximetry 05/07/17 05/07/17 05/07/17 06:15 06:30 07:00 Temperature Pulse Rate 98 101 99 Respiratory 12 14 9 Rate Blood Pressure 157/108 146/97 153/108 (mmHg) O2 Sat by Pulse 98 97 98 Oximetry 05/07/17 05/07/17 05/07/17 07:01 07:30 08:00 Temperature 99.6 F Pulse Rate 107 96 Respiratory 18 10 Rate Blood Pressure 152/99 (mmHg) O2 Sat by Pulse 98 97 Oximetry - Intake and Output Intake and Output: Intake & Output 05/04/17 05/05/17 05/06/17 05/07/17 11:59 11:59 11:59 11:59 Intake Total 1883 Output Total 600 Balance 1283 Weight 132 lb 0.91 oz Intake: IV Fluids 1115 NS (0.9%) 1115 Medicated IV 8 CC - Insulin 8 Oral 760 Output: Urine 600 Other: Date of Last Bowel 05/06/2017 Movement ADLs: Meal Record Start: 05/06/17 19: 26 Freq: 09,13,18 Status: Active Protocol: Created 05/06/17 19:26 System (Rec: 05/06/17 19:26 System [id number]) Intake and Output Start: 05/06/17 11: 35 Freq: Status: Active Protocol: Created 05/06/17 11:35 System (Rec: 05/06/17 11:35 System [id number]) Intake and Output Start: 05/06/17 19: 26 Freq: 06,14,22 Status: Active Protocol: Created 05/06/17 19:26 System (Rec: 05/06/17 19:26 System [id number]) Document 05/06/17 22:00 [id number] (Rec: 05/06/17 22:32 [id number]) Document 05/07/17 05:42 [id number] (Rec: 05/07/17 05:43 [id number]) - Physical Exam General Physical Exam Comment: Hydrated. Anxious. Hemodynamically stable. Feet - no ulcers, callouses or infections General: No Cyanosis, No Anemia, No Jaundice, No Clubbing Eye Exam: bilateral: PERRLA, Retinopathy - Flame hemorrhages left fundus Skin: Normal: Rash Lungs and Chest: Yes: Chest Expansion Full, Chest Expansion Symetrica, Percussion Note Resonant, Vessicular Breath Sounds. No: Crackles, Wheezes Heart Rate and Rhythm: Regular JVP: Not Elevated Additional Cardiovascular: Yes: Normal Heart Sounds. No: Heart Murmur, Pedal Edema Abdominal Exam: Yes: Soft, Abdominal Tenderness, Bowel Sounds Present. No: Distention, Rigidity, Abdominal Mass, Hepatomegaly, Guarding, Rebound Tenderness - Extremities Cranial Nerves II-XII Intact: Yes Limbs: Normal Power, Normal Tone - Neuro Orientation: A/O x3 Psychiatric: Anxious Speech: Normal Results - Results Lab Results: Laboratory Results - last 24 hr 05/06/17 05/06/17 05/06/17 20:05 21:11 21:58 WBC RBC Hgb Hct MCV MCH MCHC RDW Plt Count MPV Neut % (Auto) Lymph % (Auto) [place] % (Auto) Eos % (Auto) Baso % (Auto) Absolute Neuts (auto) Absolute Lymphs (auto) Absolute Monos (auto) Absolute Eos (auto) Absolute Basos (auto) Absolute Nucleated RBC Nucleated RBC % Sodium Potassium Chloride Carbon Dioxide Anion Gap BUN Creatinine Est GFR ( Amer) Est GFR (Non-Af Amer) BUN/Creatinine Ratio Glucose POC Glucose (mg/dL) 182 H 94 69 L Lactic Acid Calcium Total Bilirubin AST ALT Alkaline Phosphatase Total Protein Albumin Globulin Albumin/Globulin Ratio 05/06/17 05/06/17 05/07/17 22:00 23:08 05:30 WBC 17.9 H RBC 3.49 L Hgb 10.1 L Hct 30 L MCV 86 MCH 29 MCHC 34 RDW 14 Plt Count 430 MPV 8 Neut % (Auto) 81.7 Lymph % (Auto) 11.1 L [place] % (Auto) 6.5 Eos % (Auto) 0.3 Baso % (Auto) 0.4 Absolute Neuts (auto) 14.6 H Absolute Lymphs (auto) 2.0 Absolute Monos (auto) 1.2 H Absolute Eos (auto) 0.1 Absolute Basos (auto) 0.1 Absolute Nucleated RBC 0 Nucleated RBC % 0 Sodium 137 Potassium 3.6 Chloride 103 Carbon Dioxide 25 Anion Gap 9 BUN 26 H Creatinine 2.26 H Est GFR ( Amer) 42.4 Est GFR (Non-Af Amer) 33.0 BUN/Creatinine Ratio 11.5 Glucose 75 POC Glucose (mg/dL) 214 H Lactic Acid Calcium 9.5 Total Bilirubin AST ALT Alkaline Phosphatase Total Protein Albumin Globulin Albumin/Globulin Ratio 05/07/17 05/07/17 05:30 05:30 WBC RBC Hgb Hct MCV MCH MCHC RDW Plt Count MPV Neut % (Auto) Lymph % (Auto) [place] % (Auto) Eos % (Auto) Baso % (Auto) Absolute Neuts (auto) Absolute Lymphs (auto) Absolute Monos (auto) Absolute Eos (auto) Absolute Basos (auto) Absolute Nucleated RBC Nucleated RBC % Sodium 132 L Potassium 3.8 Chloride 102 Carbon Dioxide 24 Anion Gap 6 BUN 24 Creatinine 2.10 H Est GFR ( Amer) 46.2 Est GFR (Non-Af Amer) 35.9 BUN/Creatinine Ratio 11.4 Glucose 209 H POC Glucose (mg/dL) Lactic Acid 0.7 Calcium 8.9 Total Bilirubin 0.40 AST 25 ALT 13 Alkaline Phosphatase 80 Total Protein 6.6 Albumin 3.7 Globulin 2.9 Albumin/Globulin Ratio 1.3 Radiology Results: Patient Name: BARRON MEDEROS Medical Record#: [id number] Ordering Physician: Naveed Chao MD Acct.#: [id number] : 1980 Age: 37 Sex: M Location: EMERGENCY DEPARTMENT Exam Date: 05/06/17 1554 ADM Status: REG ER Order Information: CT ABD/PEL W/O Accession Number: [id number] CPT: 02505 INDICATION: Abdominal pain COMPARISON: CT August 19, 2014 TECHNIQUE: Axial source images were acquired from the level hemidiaphragms to the symphysis pubis following administration of oral contrast only. Lung bases: The lung bases are clear. Liver: The liver is enlarged with findings of hepatic steatosis. Noncontrast imaging shows no evidence of a hepatic mass or ductal dilatation. Gallbladder: There are no calcified gallstones. There is no evidence of wall thickening or pericholecystic fluid.. Spleen: The spleen is normal in size. The noncontrast CT appearance is normal. Pancreas: Noncontrast imaging shows no pancreatic mass or ductal dilitation. Adrenal glands: No masses are identified. Kidneys/Bladder: There is nonobstructive right-sided nephrolithiasis. There is a 4 mm upper pole calculus and a 2 mm lower pole calculus. Noncontrast imaging shows no evidence of a renal mass. The bladder is unremarkable.. Adenopathy: There is no evidence of intraperitoneal or retroperitoneal adenopathy. Evaluation is limited without oral contrast. Fluid collections: There are no free or localized fluid collections. Vessels: The aorta and iliac vessels are normal in caliber. There are no significant atherosclerotic changes. The IVC appears normal Pelvic organs: The prostate and seminal vesicles appear normal GI tract: The oral contrast is in the stomach and proximal small bowel. The stomach is distended. The upper GI tract is otherwise unremarkable. There is limited evaluation of the colon due to lack of oral contrast. There is no obstructive process. The appendix is visualized and appears normal. Soft tissues: No soft tissue abnormalities of the extraperitoneal abdomen or pelvis are identified. Osseous structures: There are no acute osseous findings. IMPRESSION: 1. Hepatomegaly. 2. Distended stomach. 3. Nonobstructive right-sided nephrolithiasis. <Electronically signed by Abdullahi Joshua MD in [place]> 05/06/17 170 Dictated By: Abdullahi Joshua MD 1 of 2 Patient Name: BARRON MEDEROS Medical Record#: [id number] Ordering Physician: Torri Juan DO Acct.#: [id number] : 1980 Age: 37 Sex: M Location: EMERGENCY DEPARTMENT Exam Date: 05/06/171743 ADM Status: REG ER Order Information: CHEST AP PORTABLE Accession Number: [id number] CPT: 43229 INDICATION: Diabetic ketoacidosis hyperinflation COMPARISON: March 30, 2016 TECHNIQUE: An AP portable view obtained at 1800 hours is submitted. FINDINGS: Bones/Soft Tissues: There are no acute bony findings. There is a metallic foreign body in the left neck, unchanged Cardiomediastinal: The cardiomediastinal silhouette is normal. Lungs: There are no infiltrates. Pleura: There are no pleural effusions. Other: None IMPRESSION: NO ACTIVE DISEASE. <Electronically signed by Abdullahi Joshua MD in OV> 05/06/171819 Dictated By: Abdullahi Joshua MD Dictated Date/Time: 05/06/171819 Transcribed Date/Time: 05/06/17 180 Copy to: CC:Toby Edge MD; Torri Juan DO; Naveed Chao MD Imaging - [facility] [address] [place] [id number] ph [phone]) ph [phone] ph ([phone]) 1 of 1 EKG Report: Rate 120 sinus rhythm, [place] 142 QTc 492 QRS axis -[address] depression V3 - V5 Other Results/Reports: Microbiology MRSA negative. Influenza A and B negative Assessment - Problem List Assessment: Patient Problems Abdominal pain (Acute) DVT prophylaxis (Acute) Full code status (Acute 06/14/14) Hypertension (Acute) Intractable abdominal pain (Acute 06/14/14) Nausea & vomiting (Acute 05/15/14) Type 1 diabetes mellitus with nephropathy (Acute) Type 1 diabetes mellitus with peripheral autonomic neuropathy (Acute) Type 1 diabetes, uncontrolled, 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 (Acute) Uncontrolled type 1 diabetes mellitus (Acute) Celiac disease (Chronic) Chronic kidney disease (Chronic) Erosive esophagitis (Chronic 11/10/13) Gastroparesis (Chronic) History of anxiety (Chronic) History of depression (Chronic) History of gastroesophageal reflux (GERD) (Chronic) History of neuropathy (Chronic) Hx of bipolar disorder (Chronic) Marijuana use (Chronic) PTSD (post-traumatic stress disorder) (Chronic) Right nephrolithiasis (Chronic) Smoker (Chronic) DKA (diabetic ketoacidoses) (Acute) Esophagitis (Acute 06/14/14) GERD without esophagitis (Acute) Hx of type 1 diabetes mellitus (Chronic) Plan: Abdominal pain (Acute) Nausea & vomiting (Acute 05/15/14) Gastroparesis (Chronic ) DKA (diabetic ketoacidoses) (Acute) Celiac disease (Chronic) Uncontrolled type 1 diabetes mellitus He presents with an acute onset of severe epigastric pain, nausea and vomiting. It woke him from sleep at 3 am. He has been taking diclofenac for pain. He ate some meat and wonders if it was contaminated with gluten. Possibilities: - Peptic ulcer - erosive esophagitis - gastritis secondary to NSAIDs - Primary DKA causing abdominal pain/exacerbating gastroparesis The DKA has responded to IV insulin, IVF. He is thirsty, but not hungry. I will request a GI consult/EGD to ensure he has no peptic ulceration. He agrees to this. He is receiving hydromorphone for pain at present. Type 1 diabetes mellitus with nephropathy (Acute)Type 1 diabetes mellitus with peripheral autonomic neuropathy (Acute)Type 1 diabetes, uncontrolled, 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 (Acute) He has not shown for repeat office visits and is planning to move to [place] and doesn't anticipate following up. Hypertension (Acute) His BP is running high - I will restart his antihypertensives Intractable abdominal pain (Acute 06/14/14) He has chronic abdominal pain and is seeking opioids. We have not been supplying them. He uses diclofenac, a drug he denies is causing him any problems Chronic kidney disease (Chronic) This is exacerbated Erosive esophagitis (Chronic 11/10/13) He has a history of this and we will determine if this is an active player with this acute hospitalization History of anxiety (Chronic) Ongoing - he has been using his 's clonazepam. He needs anxiolytic therapy at present Hx of bipolar disorder (Chronic)History of depression (Chronic) He will resume his usual Rx History of gastroesophageal reflux (GERD) (Chronic) History of neuropathy (Chronic) ongoing Marijuana use (Chronic) He is using this for self medication - I doubt he could afford medical marijuana. This is worth exploring PTSD (post-traumatic stress disorder) (Chronic) ongoing Right nephrolithiasis (Chronic) This is a new diagnosis noted on his CT scan. The pain he is experiencing is atypical for renal colic and he has no hydronephrosis Smoker (Chronic) counseled to quit DVT prophylaxis (Acute) Full code status (Acute 06/14/14) I will resume his usual outpatient insulin regimen. I will consult with Dr. Sergio Cornell for an EGD. I will give him a PPI. He is stable to transfer out of the ICU to a general medical bed without telemetry. Time Spent with Direct Patient Care: 1 hour in ICU. - Health Maintenance Health Maintenance: Yes: Smoking Censation, Discussion with Primary Care
[2017-05-07] MEDS ORDERED: Dextrose 50% Syringe 50 ML* 25 GM/50 ML SYRINGE IV PUSH PRN ×2 (08:55→08:56)
[2017-05-07] MEDS ORDERED: clonazePAM TAB(*) 0.5 MG PO PRN (09:03)
[2017-05-07] MEDS ORDERED: Insulin LISPRO* 1 UNITS UNIT SUBCUT ONE (09:13)
[2017-05-07] MEDS: Insulin GLARGINE(*) 1 UNITS UNIT SUBCUT SCH (09:17)
[2017-05-07] MEDS: Ondansetron INJ* 2 MG/ML VIAL IV PRN ×2 (09:34→16:26)
[2017-05-07] MEDS: Insulin LISPRO* 1 UNITS UNIT SUBCUT SCH ×6 (11:31→20:50)
[2017-05-07] MEDS: D5W NS 0.9% 20Meq KCL 1000 ML* 1,000 ML IV SCH (13:25)
[2017-05-07] MEDS ORDERED: Midazolam* 1 MG/ML 10 ML VIAL (10 MG) ONE (16:50)
[2017-05-07] MEDS ORDERED: fentaNYL* 50 MCG/ML 2 ML VIAL (100 MCG VIAL) ONE (16:52)
[2017-05-07] MEDS: Pantoprazole IV* 40 MG IV SCH (20:31)
[2017-05-07] MEDS: buPROPion SR TAB.SR* 100 MG PO SCH (20:31)
[2017-05-07] MEDS ORDERED: PROCHLORPERAZINE INJ 5 MG/ML 2 ML VIAL IV PRN (20:41)
[2017-05-07] MEDS ORDERED: PROCHLORPERAZINE INJ 5 MG/ML 2 ML VIAL ONE (20:56)
[2017-05-07] MEDS ORDERED: QUEtiapine TAB* 100 MG PO SCH (21:00)
[2017-05-08] MEDS: D5W NS 0.9% 20Meq KCL 1000 ML* 1,000 ML IV SCH ×2 (01:11→04:15)
[2017-05-08] MEDS: Ondansetron INJ* 2 MG/ML VIAL IV PRN (03:37)
[2017-05-08] MEDS: Heparin VIAL(*) 5000 UNITS/ML VIAL (FIVE THOUSAND) SUBCUT SCH (05:30)
[2017-05-08] MEDS: buPROPion SR TAB.SR* 100 MG PO SCH (07:51)
[2017-05-08] MEDS: Insulin LISPRO* 1 UNITS UNIT SUBCUT SCH ×5 (07:57→13:44)
--- NOTE | 2017-05-08 08:22 | PN ---
Subjective - Subjective Reason for Note: Discharge Note History: The EGD showed esophagitis, no evidence of a peptic ulcer. This morning he had a low glucose. He is requesting hydromorphone Active Problems: Active Problems Abdominal pain (Acute) R10.9 - Resolved with treatment of hyperglycemia - Anion gap closed - not acidotic DVT prophylaxis (Acute) [id number] Low risk - encourage ambulation Full code status (Acute 06/14/14) Z78.9 Hypertension (Acute) I10 A. Improved - no hx of HTN in past. CT scan of head - Negative. Remains tachycardic Plan Hold antihypertensives for now. Intractable abdominal pain (Acute 06/14/14) R10.9 Nausea & vomiting (Acute 05/15/14) R11.[address] abd on admission - actually showed improvement of his esophagitis. Suspect this is cyclic vomiting in setting of heavy marijuana use - though patient insists it helps his nausea. 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 Erosive esophagitis (Chronic 11/10/13) K22.10 Gastroparesis (Chronic) K31.84 History of anxiety (Chronic) Z86.59 History of depression (Chronic) Z86.59 History of gastroesophageal reflux (GERD) (Chronic) Z87.19 History of neuropathy (Chronic) Z86.69 A. Stable - Continue Gabapentin Hx of bipolar disorder (Chronic) Z86.59 patient now with suicidal ideations not actively treated for bipolar disease psych consult requested --> recommendation for inpatient psych hospitalization Marijuana use (Chronic) F12.10 A. As mentioned above Plan Recommended quitting - Patient not interested PTSD (post-traumatic stress disorder) (Chronic) F43.10 Right nephrolithiasis (Chronic) N20.0 Smoker (Chronic) F17.200 Current Medications: Current Medications Acetaminophen (Tylenol Tab*) 650 mg PO Q4H PRN PRN Reason: FEVER/PAIN Last Admin: 05/08/17 07:52 Dose: 650 mg Al Hydrox/Mg Hydrox/Simethicone (Maalox Plus*) 30 ml PO Q4H PRN PRN Reason: INDIGESTION Bupropion HCl (Wellbutrin Sr Tab*) 100 mg PO 0800,1700 [facility] Last Admin: 05/08/17 07:51 Dose: Not Given Clonazepam (Klonopin Tab(*)) 0.5 mg PO BID PRN PRN Reason: ANXIETY Dextrose (D50w Syringe 50 Ml*) 12.5 gm IV PUSH .FOR FS < 60 - SS PRN PRN Reason: FS < 60 Heparin Sodium (Porcine) (Heparin Vial(*)) 5,000 units SUBCUT Q8HR [facility] Last Admin: 05/08/17 05:30 Dose: Not Given Insulin Glargine (Lantus(*)) 24 units SUBCUT Q24H [facility] Last Admin: 05/07/17 09:17 Dose: 24 units Insulin Human Lispro (Humalog*) 0 units SUBCUT AC [facility] PRN Reason: Protocol Last Admin: 05/08/17 07:57 Dose: Not Given Insulin Human Lispro (Humalog*) 0 units SUBCUT ACHS [facility] PRN Reason: Protocol Last Admin: 05/07/17 20:50 Dose: Not Given Ondansetron HCl (Zofran Inj*) 4 mg IV Q6H PRN PRN Reason: NAUSEA Last Admin: 05/08/17 03:37 Dose: 4 mg Pantoprazole Sodium (Protonix Iv*) 40 mg IV Q24H [facility] Last Admin: 05/07/17 20:31 Dose: 40 mg Prochlorperazine Edisylate (Compazine Inj*) 10 mg IV Q6H PRN PRN Reason: NAUSEA/VOMITING Last Admin: 05/07/17 20:59 Dose: 10 mg Quetiapine Fumarate (Seroquel Tab*) 200 mg PO BEDTIME [facility] Last Admin: 05/07/17 21:01 Dose: 200 mg Ramipril (Altace Cap*) 5 mg PO DAILY [facility] Last Admin: 05/08/17 07:52 Dose: 5 mg Home Medications: Home Medications Medication Instructions Recorded Confirmed Type Metoclopramide TAB* [Reglan TAB*] 10 mg PO BID #60 tab 12/17/16 05/06/17 Rx Insulin GLARGINE(*) [Lantus(*)] 24 units SUBCUT DAILY 05/06/17 05/06/17 History Insulin LISPRO* [HumaLOG*] 0 - 10 units SUBCUT ACHS 05/06/17 05/06/17 History QUEtiapine TAB* [Seroquel TAB*] 200 mg PO BEDTIME #30 tab 05/08/17 Rx buPROPion SR TAB* [Wellbutrin SR 100 mg PO 0800,1700 #60 tab.sr 05/08/17 Rx TAB*] Allergies: Allergies Allergy/AdvReac Type Severity Reaction Status Date / Time gluten Allergy Abdominal Verified 05/06/17 12:52 Pain - Social History Living Situation: He lives with his in [place] and is attempting to move to [facility] Objective - Vital Signs Vital Signs: Vital Signs 05/07/17 05/07/17 05/07/17 08:26 08:30 09:00 Temperature Pulse Rate 106 96 Respiratory 22 23 8 Rate Blood Pressure 163/111 160/105 (mmHg) O2 Sat by Pulse 100 97 Oximetry 05/07/17 05/07/17 05/07/17 09:01 09:30 10:00 Temperature Pulse Rate 104 96 117 Respiratory 10 22 19 Rate Blood Pressure 168/107 147/97 (mmHg) O2 Sat by Pulse 98 99 99 Oximetry 05/07/17 05/07/17 05/07/17 10:01 10:30 11:00 Temperature Pulse Rate 98 94 97 Respiratory 27 10 10 Rate Blood Pressure 152/104 143/85 (mmHg) O2 Sat by Pulse 100 98 97 Oximetry 05/07/17 05/07/17 05/07/17 11:17 11:20 13:31 Temperature 98.2 F 98.2 F Pulse Rate 100 100 Respiratory 16 16 16 Rate Blood Pressure 150/91 150/91 (mmHg) O2 Sat by Pulse 99 99 Oximetry 05/07/17 05/07/17 05/07/17 15:20 15:26 18:19 Temperature 98.3 F 98.3 F Pulse Rate 94 89 Respiratory 16 16 16 Rate Blood Pressure 162/96 146/90 (mmHg) O2 Sat by Pulse 99 100 Oximetry 05/07/17 05/07/17 05/07/17 20:00 20:32 20:45 Temperature 98.0 F Pulse Rate 95 Respiratory 19 16 19 Rate Blood Pressure 165/102 (mmHg) O2 Sat by Pulse 100 Oximetry 05/07/17 05/07/17 05/08/17 23:20 23:45 03:31 Temperature 97.9 F 98.0 F Pulse Rate 105 116 Respiratory 16 15 18 Rate Blood Pressure 134/69 178/104 (mmHg) O2 Sat by Pulse 97 100 Oximetry 05/08/17 05/08/17 05/08/17 03:42 07:37 07:38 Temperature 98.7 F Pulse Rate 104 Respiratory 16 Rate Blood Pressure 178/80 147/92 142/86 (mmHg) O2 Sat by Pulse 100 Oximetry - Intake and Output Intake and Output: Intake & Output 05/05/17 05/06/17 05/07/17 05/08/17 11:59 11:59 11:59 11:59 Intake Total 2483 2087 Output Total 600 1300 Balance 1883 787 Weight 132 lb 0.91 oz 132 lb 6.4 oz Intake: IV Fluids 1115 1367 D5W NS 20 meq KCL 525 NS (0.9%) 1115 842 Medicated IV 8 CC - Insulin 8 Oral 1360 720 Output: Urine 600 1300 Other: Date of Last Bowel 05/06/2017 Movement # Bowel Movements 0 ADLs: Meal Record Start: 05/06/17 19: 26 Freq: 09,13,18 Status: Active Protocol: Created 05/06/17 19:26 System (Rec: 05/06/17 19:26 System ICU-C25) Document 05/07/17 09:00 [id number] (Rec: 05/07/17 09:22 [id number] ICU-C10) Document 05/07/17 13:21 [id number] (Rec: 05/07/17 13:21 [id number] MED-C09) Document 05/07/17 18:00 [id number] (Rec: 05/07/17 23:51 [id number] MED-C02) Intake and Output Start: 05/06/17 11: 35 Freq: Status: Active Protocol: Created 05/06/17 11:35 System (Rec: 05/06/17 11:35 System [id number]) Intake and Output Start: 05/06/17 19: 26 Freq: 06,14,22 Status: Active Protocol: Created 05/06/17 19:26 System (Rec: 05/06/17 19:26 System ICU-C25) Document 05/06/17 22:00 [id number] (Rec: 05/06/17 22:32 [id number] ICU-C16) Document 05/07/17 05:42 [id number] (Rec: 05/07/17 05:43 [id number] ICU-C16) Document 05/07/17 13:22 [id number] (Rec: 05/07/17 13:22 [id number] MED-C09) Document 05/07/17 19:47 [id number] (Rec: 05/07/17 19:48 [id number] MED-C15) Document 05/07/17 22:00 [id number] (Rec: 05/07/17 23:47 [id number] MED-M03) Document 05/08/17 01:15 [id number] (Rec: 05/08/17 04:14 [id number] MED-C26) Document 05/08/17 05:16 [id number] (Rec: 05/08/17 05:16 [id number] MEDL-C02) - Physical Exam General: No Cyanosis, No Anemia, No Jaundice, No Clubbing Lungs and Chest: Yes: Chest Expansion Full, Chest Expansion Symetrica, Percussion Note Resonant, Vessicular Breath Sounds. No: Crackles, Wheezes Heart Rate and Rhythm: Regular JVP: Not Elevated Additional Cardiovascular: Yes: Normal Heart Sounds. No: Heart Murmur, Pedal Edema Abdominal Exam: Yes: Soft, Abdominal Tenderness - mild epigastric, Bowel Sounds Present. No: Distention, Abdominal Mass, Hepatomegaly, Splenomegaly, Guarding, Rebound Tenderness Results - Results Lab Results: Laboratory Results - last 24 hr 05/07/17 05/07/17 05/07/17 08:32 09:31 09:31 POC Glucose (mg/dL) 214 H Vitamin B12 779 Cortisol 13.65 05/07/17 05/07/17 05/07/17 11:49 13:19 13:38 POC Glucose (mg/dL) 91 61 L 72 Vitamin B12 Cortisol 05/07/17 05/07/17 05/08/17 15:57 20:35 07:54 POC Glucose (mg/dL) 127 H 120 H 53 L Vitamin B12 Cortisol Assessment - Problem List Assessment: Patient Problems Abdominal pain (Acute) DVT prophylaxis (Acute) Full code status (Acute 06/14/14) Hypertension (Acute) Intractable abdominal pain (Acute 06/14/14) Nausea & vomiting (Acute 05/15/14) Type 1 diabetes mellitus with nephropathy (Acute) Type 1 diabetes mellitus with peripheral autonomic neuropathy (Acute) Type 1 diabetes, uncontrolled, 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 (Acute) Uncontrolled type 1 diabetes mellitus (Acute) Celiac disease (Chronic) Chronic kidney disease (Chronic) Erosive esophagitis (Chronic 11/10/13) Gastroparesis (Chronic) History of anxiety (Chronic) History of depression (Chronic) History of gastroesophageal reflux (GERD) (Chronic) History of neuropathy (Chronic) Hx of bipolar disorder (Chronic) Marijuana use (Chronic) PTSD (post-traumatic stress disorder) (Chronic) Right nephrolithiasis (Chronic) Smoker (Chronic) DKA (diabetic ketoacidoses) (Acute) Esophagitis (Acute 06/14/14) GERD without esophagitis (Acute) Hx of type 1 diabetes mellitus (Chronic) Plan: His diabetic ketoacidosis is resolved. He is going to start eating this morning and he is ready for discharge.
[2017-05-08] MEDS: Insulin GLARGINE(*) 1 UNITS UNIT SUBCUT SCH (08:59)
[2017-05-08] MEDS ORDERED: Ramipril CAP* 5 MG PO SCH (09:00)
[2017-05-08 13:47] VITALS: BP 85/52
--- NOTE | 2017-05-08 15:30 | PRO ---
DATE: 05/07/17 - ROOM #[id number] REFERRING PHYSICIAN: Dr. Toby Edge.* PROCEDURE: Upper gastrointestinal endoscopy and biopsy of third portion duodenum and distal esophagus at 36 to 37 cm from areas of superficial exudate. INDICATION: This 37-year-old type 1 diabetic awakened at 4 a.m. on 05/06 with abdominal pain and began vomiting. The vomiting became repetitive and eventually came to the emergency room for the management of that and also abdominal pain. He has had numerous emergency room visits for abdominal pain. On this occasion, his bicarbonate was slightly lower at 21 with some ketones in the urine and he was treated for DKA. He states over the last several weeks, he has generally been feeling fine though he has episodes similar to this fairly often. He is rather upset emotionally at the moment and it is hard to get more precise details. He does state that he has not vomited since coming to the hospital. At home, he has been taking diclofenac as prescribed from the behavioral sciences unit. Since discharge from there, he has not been to any other behavioral professional. He did tell the nurse that he borrows his 's Klonopin from time to time. Outpatient meds include Reglan, but no PPI. ENDOSCOPIST: Dr. Cornell. MEDICATIONS: Midazolam 10, fentanyl 100. FINDINGS: He is a red haired slender man in no overt distress at this time, though he is emotionally somewhat frustrated. EGD: Larynx - symmetric, limited views. Esophagus - easily entered, the mucosa is normal in the upper mid esophagus and then some splotchy exudate is seen. It does not have the appearance of monilia or herpes. It is not quite typical in distribution of a peptic esophagitis but appears more consistent with an emetogenic irritation. It is more severe distally. The EG junction is at 39 and there is a small hiatal hernia. Stomach - empty with no retention. The mucosa appears normal. There are no erosions, polyps or bleeding. There is no deformity. Duodenum - The pylorus, bulb, and second through fourth portions appear normal. Given the history of celiac disease, biopsies were taken from the third portion of the duodenum to assess for dietary compliance. IMPRESSION: 1. Probable emetogenic esophagitis. 2. History of celiac disease - biopsy is pending. [id number]/[facility] #: [id number] [facility]
--- NOTE | 2017-05-09 00:14 | DS ---
CC: Dr. Sergio Cornell * DISCHARGE SUMMARY: DATE OF ADMISSION: 05/06/17 DATE OF DISCHARGE: 05/08/17 DISCHARGE DIAGNOSES: 1. Diabetic ketoacidosis. 2. Erosive gastritis. 3. Abdominal pain. SECONDARY DIAGNOSES: 1. Type 1 diabetes mellitus with nephropathy, peripheral neuropathy, and proliferative diabetic retinopathy. 2. Gastroparesis. 3. Celiac disease. 4. History of anxiety. 5. Depression. 6. Bipolar affective disorder. 7. Marijuana use. 8. Posttraumatic stress disorder. 9. Right nephrolithiasis. 10. Tobacco abuse. HISTORY: Barron Simmons is a 37-year-old white male. His presentation is documented in Dr. Torri Juan's admitting history and physical. In short, he ate food, thought it may have been contaminated with gluten, awoke at 3 a.m. with severe abdominal pain, nausea and vomiting, out of control diabetes. He came to the emergency room. PHYSICAL EXAMINATION: Temperature 96.9, heart rate 128, respirations 18, oxygen saturation 99% on room air, blood pressure 168/119. He had no CVA tenderness. Soft, diffusely tender to palpation, worse in the epigastrium. No guarding or rebound. No Brizuela sign. INITIAL INVESTIGATIONS: White count 18.6, hemoglobin 12.6, platelets 583, 89.6 % neutrophils. Chemistry: Sodium 131, potassium 4.2, chloride 93, bicarbonate 21, BUN 29, creatinine 2.59, glucose 351. Lactic acid 5.2. Lipase 61. CT scan of the abdomen showed hepatomegaly, distended stomach, nonobstructive right -sided nephrolithiasis. INITIAL IMPRESSION: Anion gap metabolic acidosis. This was considered most likely to be due to diabetic ketoacidosis. He had positive ketones in his urine and was managed in the ICU with an IV insulin infusion and large amounts of IV volume. INVESTIGATIONS: EKG showed sinus tachycardia, 120, MA interval 142, QTc at 492 , QRS axis -40. Chest x-ray, no acute disease. EGD was performed by Dr. Sergio Cornell. The written report, erosive esophagitis. Biopsies were taken from the stomach for celiac disease. No evidence of peptic ulceration. LABS: Microbiology negative for type A and type B flu and negative for MRSA. No growth from blood cultures. Other labs: Vitamin B12 779. His CRP at presentation was less than 1. Urine cannabinoid screen was positive on entry. HOSPITAL COURSE: He responded well to IV fluid spiritism and IV insulin. His blood sugar came under control. During the rest of the hospitalization, he was either euglycemic or hypoglycemic despite an IV infusion of 5% dextrose. I note that he usually runs between 200 to 300 mg/dL when he is not in the hospital. We were giving him the same amount of basal insulin he receives at home. On the day of discharge, he is asking for narcotics saying that he has pain. He has not had any further vomiting. He wishes to go home. PHYSICAL EXAMINATION ON DAY OF DISCHARGE: Temperature 98.7, pulse 104, respirations 16, oxygen saturation 100% on room air, blood pressure 147/92. He has no cyanosis, anemia, jaundice, clubbing, or lymphadenopathy. Cardiovascular System: Pulse regular, normal character and volume. Venous pressure not elevated. Heart sounds normal. No added sounds or murmurs. No pedal edema. Respiratory System: His chest was clear. Abdomen: This was not distended. He has no masses or organomegaly. Mild tenderness in the epigastric region without any rebound or rigidity or guarding. Bowel sounds are present. Nervous System: Alert and oriented. Conjugate eye movements. Normal speech. Fundi show flame hemorrhages in the left fundus. Foot examination: No ulcers, calluses, or infections. ASSESSMENT AND PLAN: 1. Erosive esophagitis. I have prescribed omeprazole 40 mg twice daily for 4 weeks followed by 1 tablet a day. 2. Diabetic ketoacidosis. This has resolved. His outpatient diabetic control is poor. He has not showed up to the last 5 of his outpatient appointments. He shows poor self care and judgement. 3. Celiac disease. He has had new biopsies of his duodenum. 4. Hypertension. This needs long-term control when he finds a new practitioner. 5. Chronic kidney disease. He needs improved glycemic control. 6. Gastroparesis. He is taking metoclopramide as an outpatient. I suspect that this would be improved if he stopped taking NSAIDs. He gave a history of taking diclofenac. 7. Bipolar affective disorder, depression, anxiety, and PTSD. On his previous psychiatric hospitalization, he was discharged on psychopharmacology including Seroquel and bupropion. I have restarted these medications and prescribed them for him as an outpatient. He needs to follow up with mental health professionals. He knows to do this. 8. Substance abuse. He is a tobacco user. I have counseled him to stop. He is a marijuana user. I have counseled him to stop. He seeks narcotics while in the hospital. He has discharged himself from my medical office on the basis that I will not prescribe him narcotics. He is seeking new care. 9. Right nephrolithiasis. This is a new diagnosis and needs to be watched. I discussed with him the importance of following up with a primary care team to help him with these complex interacting problems. He states he is going to speak to a hospice social worker about this. He is also planning to move to [place] from [place]. He does not wish to set up an appointment to see me as an outpatient. DISCHARGE MEDICATIONS: 1. Bupropion slow release 100 mg twice daily. 2. Quetiapine, Seroquel 200 mg q.h.s. 3. Metoclopramide 10 mg twice daily. 4. Lispro insulin by carbohydrate counting. 6. Glargine insulin 24 units each day. 7. Omeprazole 40 mg twice daily. [id number]/[facility] #: [id number] MTDD
== END 2017-05-08 13:30 | disposition home or self-care (01) | DRG 420 ==
LOC: ED 11:30 → ICU 18:42 → MED 05-07 11:12
PROVIDERS: ADMIT Internal Medicine; ATTEND Internal Medicine
PROC: 0DB98ZX Excision of Duodenum, Via Natural or Artificial Opening Endoscopic, Diagnostic (ICD-10-PCS; principal; 2017-05-07)
PROC: 0DB38ZX Excision of Lower Esophagus, Via Natural or Artificial Opening Endoscopic, Diagnostic (ICD-10-PCS; 2017-05-07)
DX: E10.10 Type 1 diabetes mellitus with ketoacidosis without coma (principal); K22.10 Ulcer of esophagus without bleeding; N17.9 Acute kidney failure, unspecified; K31.84 Gastroparesis; E10.21 Type 1 diabetes mellitus with diabetic nephropathy; E10.42 Type 1 diabetes mellitus with diabetic polyneuropathy; E87.1 Hypo-osmolality and hyponatremia; K29.60 Other gastritis without bleeding; E10.3599 Type 1 diabetes mellitus with proliferative diabetic retinopathy without macular edema, unspecified eye; E10.43 Type 1 diabetes mellitus with diabetic autonomic (poly)neuropathy; K90.0 Celiac disease; F41.9 Anxiety disorder, unspecified; F32.9 Major depressive disorder, single episode, unspecified; F31.9 Bipolar disorder, unspecified; F43.10 Post-traumatic stress disorder, unspecified; F17.210 Nicotine dependence, cigarettes, uncomplicated; N20.0 Calculus of kidney; F12.10 Cannabis abuse, uncomplicated; E10.22 Type 1 diabetes mellitus with diabetic chronic kidney disease; I12.9 Hypertensive chronic kidney disease with stage 1 through stage 4 chronic kidney disease, or unspecified chronic kidney disease; N18.9 Chronic kidney disease, unspecified; D47.3 Essential (hemorrhagic) thrombocythemia; R10.9 Unspecified abdominal pain; H54.40 Blindness, one eye, unspecified eye; Z79.4 Long term (current) use of insulin; Z79.899 Other long term (current) drug therapy; Z91.018 Allergy to other foods
CPT/HCPCS: 36415; 71045; 74176; 80048; 80053; 80307; 80320; 80329; 81003; 81015; 82533; 82607; 82803; 83605; 83690; 85025; 86140; 87040; 87502; 87641; 88305; 88312; 93005; 99156; 99284; A9270-GY; G0480; J0360; J0780; J1170; J2250; J2270; J2405; J2765; J3010

== ENCOUNTER 2017-05-11 16:56 | Inpatient (IN) | payer OTHER ==
[2017-05-11] MEDS ORDERED: Pantoprazole IV* 40 MG IV ONE (18:14)
[2017-05-11] MEDS ORDERED: NS 0.9% 1000 ML* 2,000 ML IV ONE (18:14)
[2017-05-11] MEDS ORDERED: Metoclopramide IV* 5 MG/ML 2 ML VIAL IV ONE (18:14)
[2017-05-11] MEDS ORDERED: Morphine INJ* 10 MG/ML 1 ML CARPUJECT IV ONE (18:14)
[2017-05-11] MEDS ORDERED: Insulin REGULAR(*) 1 UNITS UNIT IV PUSH ONE (18:18)
[2017-05-11 19:00] LABS: ABS Basophils 0.1 10^3/ul (0-0.2); ABS Eosinophils 0 10^3/ul (0-0.6); ABS Lymphocytes 1.2 10^3/ul (1.0-4.8); ABS Monocytes 0.5 10^3/ul (0-0.8); ABS Neutrophils 15.9 10^3/ul (1.5-7.7); ABS Nucleated RBC 0 10^3/ul; Eosinophil % 0.1 % (0-6); Hematocrit 36 % (42-52); Hemoglobin 12.1 g/dl (14.0-18.0); Lymphocyte % 6.6 % (25-47); Mean Corpuscular HGB Conc 34 g/dl (31-36); Mean Corpuscular Hemoglobin 29 pg (27-31); Mean Corpuscular Volume 85 fL (80-94); Mean Platelet Volume 8 um3 (7.4-10.4); Nucleated Red Blood Cells % 0; Platelet Count 542 10^3/ul (150-450); Red Blood Count 4.21 10^6/ul (4.0-5.4); Red Cell Distribution Width 14 % (10.5-15); White Blood Count 17.6 10^3/ul (3.5-10.8)
[2017-05-11 19:14] LABS: EGFR Non-African American 28.4 (>60)
--- NOTE | 2017-05-11 19:49 | ED ---
Irma Sarkar Nilda, scribed for Omar Gonzáles MD on 05/11/17 at 1931 . Abdominal Pain/Male - HPI Summary HPI Summary: This patient is a 37 year old M BIBA with a chief complaint of constant severe epigastric pain since waking up this morning. On 05/06/17 pt was admitted to hospital and was found to have esophagitis. The patient rates the sharp pain 7/ 10 in severity. Symptoms aggravated and alleviated by nothing including Tylenol. Patient reports vomiting this morning. Patient states last BM was yesterday. PMHx includes IDDM. Pt states he has been compliant with insulin. This morning blood glucose was about 260, per pt. - History of Current Complaint Chief Complaint: EDAbdPain Stated Complaint: ABD PAIN Time Seen by Provider: 05/11/17 18:11 Hx Obtained From: Patient Onset/Duration: Sudden Onset, Lasting Hours, Still Present Timing: Constant Severity Currently: Severe Pain Intensity: 7 Pain Scale Used: 0-10 Numeric Location: Epigastric Radiates: No Character: Sharp Aggravating Factor(s): Nothing Alleviating Factor(s): Nothing Associated Signs And Symptoms: Positive: Vomiting, Other - blood glucose 260 - Allergies/Home Medications Allergies/Adverse Reactions: Allergies Allergy/AdvReac Type Severity Reaction Status Date / Time gluten Allergy Abdominal Verified 05/06/17 12:52 Pain PMH/Surg Hx/FS Hx/Imm Hx Endocrine/Hematology History: Reports: Hx Diabetes - Type 1 Denies: Hx Anticoagulant Therapy, Hx Thyroid Disease, Hx Anemia Cardiovascular History: Denies: Hx Hypertension, Hx Pacemaker/ICD, Hx Peripheral Vascular Disease, Other Cardiovascular Problems/Disorders Respiratory History: Reports: Hx Pneumonia Denies: Hx Asthma, Hx Chronic Bronchitis, Hx Chronic Obstructive Pulmonary Disease (COPD), Hx Cystic Fibrosis, Hx Lung Cancer, Hx Pleural Effusion, Hx Pulmonary Edema, Hx Pulmonary Embolism, Hx Seasonal Allergies, Hx Sleep Apnea, Other Respiratory Problems/Disorders GI History: Reports: Hx Gastroesophageal Reflux Disease, Hx Gastrointestinal Bleed, Hx Ulcer, Other GI Disorders - Gastroparesis Denies: Hx Cirrhosis, Hx Crohn's Disease, Hx Diverticulosis, Hx Gall Bladder Disease, Hx Hiatal Hernia, Hx Irritable Bowel, Hx Jaundice, Hx Obstructive Bowel , Hx Ileostomy, Hx Pyloric Stenosis History: Reports: Other Problems/Disorders - chronic kidney disease Denies: Hx Kidney Stones, Hx Renal Disease Musculoskeletal History: Denies: Hx Arthritis, Hx Osteoporosis Sensory History: Reports: Hx Vision Problem Denies: Hx Cataracts, Hx Contacts or Glasses, Hx Eye Injury, Hx Eye Prosthesis, Hx Glaucoma, Hx Macular Degeneration, Hx Deafness, Hx Hearing Aid, Hx Hearing Problem, Other Sensory Impairments Opthamlomology History: Reports: Hx Vision Problem Denies: Hx Cataracts, Hx Contacts or Glasses, Hx Eye Injury, Hx Eye Prosthesis, Hx Glaucoma, Hx Macular Degeneration, Other Sensory Impairments Neurological History: Denies: Hx Dementia, Hx Headaches, Hx Seizures, Hx Transient Ischemic Attacks (TIA) Psychiatric History: Reports: Hx Anxiety, Hx Depression, Hx Inpatient Treatment , Hx Community Mental Health Tx, Hx Bipolar Disorder, Hx Substance Abuse Denies: Hx Eating Disorder, Hx Panic Disorder, Hx Post Traumatic Stress Disorder, Hx Schizophrenia, Hx of Violent Episodes Against Others, Other Psychiatric Issues/Disorders - Cancer History Hx Chemotherapy: No Hx Radiation Therapy: No - Surgical History Hx Anesthesia Reactions: No - Immunization History Date of Tetanus Vaccine: utd Date of Influenza Vaccine: no Infectious Disease History: Yes Infectious Disease History: Denies: Hx Hepatitis, Hx Human Immunodeficiency Virus (HIV), Hx of Known/ Suspected MRSA, Hx Shingles, Hx Tuberculosis, History Other Infectious Disease, Traveled Outside the [place] in Last 30 Days - Family History Known Family History: Negative: Cardiac Disease, Hypertension, Diabetes Family History: NON CONTRIBUTORY - Social History Alcohol Use: None Hx Substance Use: Yes Substance Use Type: Reports: Marijuana Substance Use Comment - Amount & Last Used: daily Hx Tobacco Use: Yes Smoking Status (MU): Light Every Day Tobacco Smoker Type: Cigarettes Amount Used/How Often: 1/2PPD a day and has smoked in the last 30 days Length of Time of Smoking/Using Tobacco: 20 years Have You Smoked in the Last Year: Yes Review of Systems Positive: Other - blood glucose 260 Negative: Shortness Of Breath Positive: Abdominal Pain - epigastric, Vomiting All Other Systems Reviewed And Are Negative: Yes Physical Exam - Summary Physical Exam Summary: VITAL SIGNS: Reviewed. GENERAL: Patient is a well-developed and nourished male who is lying comfortable in the stretcher. Patient is not in any acute respiratory distress. HEAD AND FACE: No signs of trauma. No ecchymosis, hematomas or skull depressions. No sinus tenderness. EYES: PERRLA, EOMI x 2, No injected conjunctiva, no nystagmus. EARS: Hearing grossly intact. Ear canals and tympanic membranes are within normal limits. MOUTH: Oropharynx within normal limits. NECK: Supple, trachea is midline, no adenopathy, no JVD, no carotid bruit, no c- spine tenderness, neck with full ROM. CHEST: Symmetric, no tenderness at palpation LUNGS: Clear to auscultation bilaterally. No wheezing or crackles. CVS: Tachycardia, S1 and S2 present, no murmurs or gallops appreciated. ABDOMEN: Soft, epigastric tenderness. No signs of distention. No rebound no guarding, and no masses palpated. Bowel sounds are normal. EXTREMITIES: FROM in all major joints, no edema, no cyanosis or clubbing. NEURO: Alert and oriented x 3. No acute neurological deficits. Speech is normal and follows commands. SKIN: Dry and warm Triage Information Reviewed: Yes Vital Signs On Initial Exam: Initial Vitals Temp Pulse Resp BP Pulse Ox 99.0 F 148 28 193/122 100 05/11/17 16:56 05/11/17 16:56 05/11/17 16:56 05/11/17 16:56 05/11/17 16:56 Vital Signs Reviewed: Yes Diagnostics - Vital Signs Vital Signs Temp Pulse Resp BP Pulse Ox 05/11/17 19:00 143 27 196/99 100 05/11/17 18:52 26 05/11/17 18:30 124 27 175/115 99 05/11/17 18:00 142 196/123 100 05/11/17 17:30 140 28 188/117 99 05/11/17 17:10 159 34 193/122 99 05/11/17 17:08 145 100 05/11/17 16:56 99.0 F 148 28 193/122 100 - Laboratory Lab Results: Lab Results 05/11/17 05/11/17 05/11/17 Range/Units 18:17 18:45 18:45 WBC 17.6 H (3.5-10.8) 10^3/ul RBC 4.21 (4.0-5.4) 10^6/ul Hgb 12.1 L (14.0-18.0) g/dl Hct 36 L (42-52) % MCV 85 (80-94) fL MCH 29 (27-31) pg MCHC 34 (31-36) g/dl RDW 14 (10.5-15) % Plt Count 542 H D (150-450) 10^3/ul MPV 8 (7.4-10.4) um3 Neut % (Auto) 90.3 H (38-83) % Lymph % (Auto) 6.6 L (25-47) % [place] % (Auto) 2.7 (0-7) % Eos % (Auto) 0.1 (0-6) % Baso % (Auto) 0.3 (0-2) % Absolute Neuts (auto) 15.9 H (1.5-7.7) 10^3/ul Absolute Lymphs (auto) 1.2 (1.0-4.8) 10^3/ul Absolute Monos (auto) 0.5 (0-0.8) 10^3/ul Absolute Eos (auto) 0 (0-0.6) 10^3/ul Absolute Basos (auto) 0.1 (0-0.2) 10^3/ul Absolute Nucleated RBC 0 10^3/ul Nucleated RBC % 0 APTT (26.0-36.3) seconds VBG pH (7.33-7.43) VBG pCO2 (41-51) mmHg VBG pO2 (35-45) mmHg VBG HCO3 (24-28) mmol/L VBG O2 Saturation (70-80) % VBG Base Excess (0-4) Sodium 129 L (133-145) mmol/L Potassium 3.8 (3.5-5.0) mmol/L Chloride 91 L (101-111) mmol/L Carbon Dioxide 20 L (22-32) mmol/L Anion Gap 18 H (2-11) mmol/L BUN 26 H (6-24) mg/dL Creatinine 2.57 H (0.67-1.17) mg/dL Est GFR ( Amer) 36.6 (>60) Est GFR (Non-Af Amer) 28.4 (>60) BUN/Creatinine Ratio 10.1 (8-20) Glucose 354 H (70-100) mg/dL POC Glucose (mg/dL) 330 H (70-100) mg/dL Lactic Acid (0.5-2.0) mmol/L Calcium 10.6 H (8.6-10.3) mg/dL Magnesium 1.9 (1.9-2.7) mg/dL Total Bilirubin 0.50 (0.2-1.0) mg/dL AST 29 (13-39) U/L ALT 18 (7-52) U/L Alkaline Phosphatase 90 (34-104) U/L C-Reactive Protein < 1.00 (< 5.00) mg/L Total Protein 8.1 (6.4-8.9) g/dL Albumin 4.5 (3.2-5.2) g/dL Globulin 3.6 (2-4) g/dL Albumin/Globulin Ratio 1.3 (1-3) Amylase 96 (29-103) U/L Lipase 22 (11.0-82.0) U/L 05/11/17 05/11/17 05/11/17 Range/Units 18:45 18:45 18:45 WBC (3.5-10.8) 10^3/ul RBC (4.0-5.4) 10^6/ul Hgb (14.0-18.0) g/dl Hct (42-52) % MCV (80-94) fL MCH (27-31) pg MCHC (31-36) g/dl RDW (10.5-15) % Plt Count (150-450) 10^3/ul MPV (7.4-10.4) um3 Neut % (Auto) (38-83) % Lymph % (Auto) (25-47) % [place] % (Auto) (0-7) % Eos % (Auto) (0-6) % Baso % (Auto) (0-2) % Absolute Neuts (auto) (1.5-7.7) 10^3/ul Absolute Lymphs (auto) (1.0-4.8) 10^3/ul Absolute Monos (auto) (0-0.8) 10^3/ul Absolute Eos (auto) (0-0.6) 10^3/ul Absolute Basos (auto) (0-0.2) 10^3/ul Absolute Nucleated RBC 10^3/ul Nucleated RBC % APTT 28.5 (26.0-36.3) seconds VBG pH 7.61 H (7.33-7.43) VBG pCO2 21 L (41-51) mmHg VBG pO2 28 L (35-45) mmHg VBG HCO3 25.4 (24-28) mmol/L VBG O2 Saturation 70.5 (70-80) % VBG Base Excess 1.4 (0-4) Sodium (133-145) mmol/L Potassium (3.5-5.0) mmol/L Chloride (101-111) mmol/L Carbon Dioxide (22-32) mmol/L Anion Gap (2-11) mmol/L BUN (6-24) mg/dL Creatinine (0.67-1.17) mg/dL Est GFR ( Amer) (>60) Est GFR (Non-Af Amer) (>60) BUN/Creatinine Ratio (8-20) Glucose (70-100) mg/dL POC Glucose (mg/dL) (70-100) mg/dL Lactic Acid 5.6 H* (0.5-2.0) mmol/L Calcium (8.6-10.3) mg/dL Magnesium (1.9-2.7) mg/dL Total Bilirubin (0.2-1.0) mg/dL AST (13-39) U/L ALT (7-52) U/L Alkaline Phosphatase (34-104) U/L C-Reactive Protein (< 5.00) mg/L Total Protein (6.4-8.9) g/dL Albumin (3.2-5.2) g/dL Globulin (2-4) g/dL Albumin/Globulin Ratio (1-3) Amylase (29-103) U/L Lipase (11.0-82.0) U/L Result Diagrams: 05/11/17 18:45 05/11/17 18:45 Lab Statement: Any lab studies that have been ordered have been reviewed, and results considered in the medical decision making process. Abdominal Pain Fem Course/Dx - Course Assessment/Plan: Pt is 37 y/o with a Hx of gastroparesis and IDDM, who is c/o vomiting with epigastric pain. Lactic acid of 5.6. [1930] Pt is admitted to Dr. Mcclure (Hospitalist). Dx of N/V, and Lactic Acidosis. - Diagnoses Provider Diagnoses: Nausea and vomiting, Lactic acidosis - Provider Notifications Discussed Care Of Patient With: Victor Manuel Mcclure - Hospitalist Time Discussed With Above Provider: 19:30 Instructed by Provider To: Admit As Inpatient Discharge - Discharge Plan Condition: Stable Disposition: ADMITTED TO [facility] Referrals: Toby Edge MD [Primary Care Provider] - The documentation as recorded by the Irma deutsch Nilda accurately reflects the service I personally performed and the decisions made by me, Omar Gonzáles MD.
[2017-05-11 21:10] LABS: Urine Appearance Clear; Urine Blood Negative (Negative); Urine Color Straw; Urine Ketones Trace (Negative); Urine Protein 3+(>=500 mg/dL) (Negative); Urine Specific Gravity 1.017 (1.010-1.030); Urine Urobilinogen Negative (Negative)
[2017-05-11] MEDS ORDERED: Morphine INJ* 4 MG/ML 1 ML SYRINGE (NEW SYRINGE VERSION) IV ONE (23:06)
[2017-05-11] MEDS ORDERED: NS 0.9% 1000 ML* 1,000 ML IV ONE (23:26)
[2017-05-11] MEDS ORDERED: Melatonin (NF) 3 MG TAB PO PRN (23:34)
[2017-05-11] MEDS ORDERED: Nicotine Inhaler* 10 MG AMP INH PRN (23:34)
[2017-05-11] MEDS ORDERED: Albuterol 2.5 MG/3 ML NEB.SOL* (0.083%) INH PRN (23:34)
[2017-05-11] MEDS ORDERED: Mouth Piece, Nicotine* 1 EACH CARTRIDGE INH PRN (23:36)
--- NOTE | 2017-05-11 23:43 | HP ---
H&P (Free Text) History and Physical: NOTE: This is an interval H&P. Please refer to the H&P dated 05/06/2017 included at the bottom for more details. PCP: Abhilash Edge MD Date/Time: 05/11/2017 2330 CC: epigastric pain, tachycardia HPI: Mr Mederos is a 37YO male recently admitted to [facility] with discharge diagnoses of diabetic ketoacidosis, erosive gastritis diagnosed via EGD, & abdominal pain. He reports doing well after discharge until Saturday AM when he awoke due to severe sharp epigastric pain associated with sweats, palpitations, and N/V x2 without black or bloody content. There is radiation of the pain into the central chest with eructation. He denies F/C, diarrhea, & SOB. ED evaluation is notable for sinus tachycardia in the 120-130s, hyperglycemia, WBCs 17k 90% neutrophils, hypoNatremia 129, lactic acidosis 5.6, & baseline CKD stg 3b. An ABG showed pH of 7.6. PMedHx, PSurgHx, SocHx, FamHx: reviewed & unchanged compared to H&P dated 2017 Ambulatory Orders Nursing to reconcile. Metoclopramide TAB* [Reglan TAB*] 10 mg PO BID #60 tab 12/17/16 Insulin GLARGINE(*) [Lantus(*)] 24 units SUBCUT DAILY 05/06/17 Insulin LISPRO* [HumaLOG*] 0 - 10 units SUBCUT ACHS 05/06/17 QUEtiapine TAB* [Seroquel TAB*] 200 mg PO BEDTIME #30 tab 05/08/17 Allergies gluten Allergy (Verified 05/06/17 12:52) Abdominal Pain ROS: as above, otherwise reviewed and all were negative vitals: Vital Signs Temp 37.1 C 05/12/17 03:41 Pulse 134 05/12/17 04:30 Resp 20 05/12/17 05:25 BP 165/98 05/12/17 04:49 Pulse Ox 98 05/12/17 03:41 Intake & Output 05/11/17 05/11/17 05/12/17 11:59 23:59 11:59 Intake Total 12 750 Output Total 600 Balance 12 150 Weight 58.06 kg 58.377 kg Intake: IV Fluids 12 750 Oral 0 Output: Urine 600 Other: # Bowel Movements 0 Constitutional: NAD, normally developed, well-nourished uncomfortable young white male HEENM: atraumatic; sclera/conjunctiva: anicteric/clear; hearing: clinically intact; oropharynx: clear, mucosa tacky Neck: soft tissue: no nuchal rigidity; thyroid: normal Pulmonary: clear to auscultation bilaterally, good aeration, no accessory muscle use CV: RR/RR, normal S1S2, no carotid bruit, no jugular venous distention, 2+ B DP/ PT, no edema Abdominal: soft, non-distended, diffuse tenderness somewhat worse in the epigastrum, no rebound/guarding/rigidity, normoactive bowel sounds, no hepatosplenomegaly or masses, no costovertebral angle tenderness Musculoskeletal: general: stable, no tenderness w/ palpation Integumental: normal appearance and texture of exposed skin Psychiatric orientation: AA&O to PPS affect: pain mood: cooperative eye contact: fair to poor content: reliable responses: timely insight: fair Testing: Lab Results 05/11/17 05/11/17 05/11/17 Range/Units 18:17 18:45 18:45 WBC 17.6 H (3.5-10.8) 10^3/ul RBC 4.21 (4.0-5.4) 10^6/ul Hgb 12.1 L (14.0-18.0) g/dl Hct 36 L (42-52) % MCV 85 (80-94) fL MCH 29 (27-31) pg MCHC 34 (31-36) g/dl RDW 14 (10.5-15) % Plt Count 542 H D (150-450) 10^3/ul MPV 8 (7.4-10.4) um3 Neut % (Auto) 90.3 H (38-83) % Lymph % (Auto) 6.6 L (25-47) % Prowers % (Auto) 2.7 (0-7) % Eos % (Auto) 0.1 (0-6) % Baso % (Auto) 0.3 (0-2) % Absolute Neuts (auto) 15.9 H (1.5-7.7) 10^3/ul Absolute Lymphs (auto) 1.2 (1.0-4.8) 10^3/ul Absolute Monos (auto) 0.5 (0-0.8) 10^3/ul Absolute Eos (auto) 0 (0-0.6) 10^3/ul Absolute Basos (auto) 0.1 (0-0.2) 10^3/ul Absolute Nucleated RBC 0 10^3/ul Nucleated RBC % 0 APTT (26.0-36.3) seconds VBG pH (7.33-7.43) VBG pCO2 (41-51) mmHg VBG pO2 (35-45) mmHg VBG HCO3 (24-28) mmol/L VBG O2 Saturation (70-80) % VBG Base Excess (0-4) Sodium 129 L (133-145) mmol/L Potassium 3.8 (3.5-5.0) mmol/L Chloride 91 L (101-111) mmol/L Carbon Dioxide 20 L (22-32) mmol/L Anion Gap 18 H (2-11) mmol/L BUN 26 H (6-24) mg/dL Creatinine 2.57 H (0.67-1.17) mg/dL Est GFR ( Amer) 36.6 (>60) Est GFR (Non-Af Amer) 28.4 (>60) BUN/Creatinine Ratio 10.1 (8-20) Glucose 354 H (70-100) mg/dL POC Glucose (mg/dL) 330 H (70-100) mg/dL Lactic Acid (0.5-2.0) mmol/L Calcium 10.6 H (8.6-10.3) mg/dL Magnesium 1.9 (1.9-2.7) mg/dL Total Bilirubin 0.50 (0.2-1.0) mg/dL AST 29 (13-39) U/L ALT 18 (7-52) U/L Alkaline Phosphatase 90 (34-104) U/L C-Reactive Protein < 1.00 (< 5.00) mg/L Total Protein 8.1 (6.4-8.9) g/dL Albumin 4.5 (3.2-5.2) g/dL Globulin 3.6 (2-4) g/dL Albumin/Globulin Ratio 1.3 (1-3) Amylase 96 (29-103) U/L Lipase 22 (11.0-82.0) U/L Urine Color Urine Appearance Urine pH (5-9) Ur Specific Reading (1.010-1.030) Urine Protein (Negative) Urine Ketones (Negative) Urine Blood (Negative) Urine Nitrate (Negative) Urine Bilirubin (Negative) Urine Urobilinogen (Negative) Ur Leukocyte Esterase (Negative) Urine WBC (Auto) (Absent) Urine RBC (Auto) (Absent) Urine Bacteria (Absent) Urine Glucose (Negative) 05/11/17 05/11/17 05/11/17 Range/Units 18:45 18:45 18:45 WBC (3.5-10.8) 10^3/ul RBC (4.0-5.4) 10^6/ul Hgb (14.0-18.0) g/dl Hct (42-52) % MCV (80-94) fL MCH (27-31) pg MCHC (31-36) g/dl RDW (10.5-15) % Plt Count (150-450) 10^3/ul MPV (7.4-10.4) um3 Neut % (Auto) (38-83) % Lymph % (Auto) (25-47) % Prowers % (Auto) (0-7) % Eos % (Auto) (0-6) % Baso % (Auto) (0-2) % Absolute Neuts (auto) (1.5-7.7) 10^3/ul Absolute Lymphs (auto) (1.0-4.8) 10^3/ul Absolute Monos (auto) (0-0.8) 10^3/ul Absolute Eos (auto) (0-0.6) 10^3/ul Absolute Basos (auto) (0-0.2) 10^3/ul Absolute Nucleated RBC 10^3/ul Nucleated RBC % APTT 28.5 (26.0-36.3) seconds VBG pH 7.61 H (7.33-7.43) VBG pCO2 21 L (41-51) mmHg VBG pO2 28 L (35-45) mmHg VBG HCO3 25.4 (24-28) mmol/L VBG O2 Saturation 70.5 (70-80) % VBG Base Excess 1.4 (0-4) Sodium (133-145) mmol/L Potassium (3.5-5.0) mmol/L Chloride (101-111) mmol/L Carbon Dioxide (22-32) mmol/L Anion Gap (2-11) mmol/L BUN (6-24) mg/dL Creatinine (0.67-1.17) mg/dL Est GFR ( Amer) (>60) Est GFR (Non-Af Amer) (>60) BUN/Creatinine Ratio (8-20) Glucose (70-100) mg/dL POC Glucose (mg/dL) (70-100) mg/dL Lactic Acid 5.6 H* (0.5-2.0) mmol/L Calcium (8.6-10.3) mg/dL Magnesium (1.9-2.7) mg/dL Total Bilirubin (0.2-1.0) mg/dL AST (13-39) U/L ALT (7-52) U/L Alkaline Phosphatase (34-104) U/L C-Reactive Protein (< 5.00) mg/L Total Protein (6.4-8.9) g/dL Albumin (3.2-5.2) g/dL Globulin (2-4) g/dL Albumin/Globulin Ratio (1-3) Amylase (29-103) U/L Lipase (11.0-82.0) U/L Urine Color Urine Appearance Urine pH (5-9) Ur Specific Reading (1.010-1.030) Urine Protein (Negative) Urine Ketones (Negative) Urine Blood (Negative) Urine Nitrate (Negative) Urine Bilirubin (Negative) Urine Urobilinogen (Negative) Ur Leukocyte Esterase (Negative) Urine WBC (Auto) (Absent) Urine RBC (Auto) (Absent) Urine Bacteria (Absent) Urine Glucose (Negative) 05/11/17 05/12/17 05/12/17 Range/Units 20:41 00:16 00:16 WBC (3.5-10.8) 10^3/ul RBC (4.0-5.4) 10^6/ul Hgb (14.0-18.0) g/dl Hct (42-52) % MCV (80-94) fL MCH (27-31) pg MCHC (31-36) g/dl RDW (10.5-15) % Plt Count (150-450) 10^3/ul MPV (7.4-10.4) um3 Neut % (Auto) (38-83) % Lymph % (Auto) (25-47) % Prowers % (Auto) (0-7) % Eos % (Auto) (0-6) % Baso % (Auto) (0-2) % Absolute Neuts (auto) (1.5-7.7) 10^3/ul Absolute Lymphs (auto) (1.0-4.8) 10^3/ul Absolute Monos (auto) (0-0.8) 10^3/ul Absolute Eos (auto) (0-0.6) 10^3/ul Absolute Basos (auto) (0-0.2) 10^3/ul Absolute Nucleated RBC 10^3/ul Nucleated RBC % APTT (26.0-36.3) seconds VBG pH (7.33-7.43) VBG pCO2 (41-51) mmHg VBG pO2 (35-45) mmHg VBG HCO3 (24-28) mmol/L VBG O2 Saturation (70-80) % VBG Base Excess (0-4) Sodium 129 L (133-145) mmol/L Potassium 4.1 (3.5-5.0) mmol/L Chloride 96 L (101-111) mmol/L Carbon Dioxide 20 L (22-32) mmol/L Anion Gap 13 H (2-11) mmol/L BUN 26 H (6-24) mg/dL Creatinine 2.35 H (0.67-1.17) mg/dL Est GFR ( Amer) 40.6 (>60) Est GFR (Non-Af Amer) 31.5 (>60) BUN/Creatinine Ratio 11.1 (8-20) Glucose 410 H (70-100) mg/dL POC Glucose (mg/dL) (70-100) mg/dL Lactic Acid 2.1 H* (0.5-2.0) mmol/L Calcium 9.5 (8.6-10.3) mg/dL Magnesium (1.9-2.7) mg/dL Total Bilirubin (0.2-1.0) mg/dL AST (13-39) U/L ALT (7-52) U/L Alkaline Phosphatase (34-104) U/L C-Reactive Protein (< 5.00) mg/L Total Protein (6.4-8.9) g/dL Albumin (3.2-5.2) g/dL Globulin (2-4) g/dL Albumin/Globulin Ratio (1-3) Amylase (29-103) U/L Lipase (11.0-82.0) U/L Urine Color Straw Urine Appearance Clear Urine pH 7.0 (5-9) Ur Specific Reading 1.017 (1.010-1.030) Urine Protein 3+(>=500 mg/dl) H (Negative) Urine Ketones Trace H (Negative) Urine Blood Negative (Negative) Urine Nitrate Negative (Negative) Urine Bilirubin Negative (Negative) Urine Urobilinogen Negative (Negative) Ur Leukocyte Esterase Negative (Negative) Urine WBC (Auto) Trace(0-5/hpf) (Absent) Urine RBC (Auto) Trace(0-2/hpf) (Absent) Urine Bacteria Absent (Absent) Urine Glucose 3+(>=500 mg/dl) H (Negative) 05/12/17 05/12/17 Range/Units 00:16 03:29 WBC 23.7 H (3.5-10.8) 10^3/ul RBC 3.83 L (4.0-5.4) 10^6/ul Hgb 11.2 L (14.0-18.0) g/dl Hct 33 L (42-52) % MCV 86 (80-94) fL MCH 29 (27-31) pg MCHC 34 (31-36) g/dl RDW 13 (10.5-15) % Plt Count 479 H D (150-450) 10^3/ul MPV 8 (7.4-10.4) um3 Neut % (Auto) 91.6 H (38-83) % Lymph % (Auto) 5.4 L (25-47) % Prowers % (Auto) 2.7 (0-7) % Eos % (Auto) 0 (0-6) % Baso % (Auto) 0.3 (0-2) % Absolute Neuts (auto) 21.7 H (1.5-7.7) 10^3/ul Absolute Lymphs (auto) 1.3 (1.0-4.8) 10^3/ul Absolute Monos (auto) 0.6 (0-0.8) 10^3/ul Absolute Eos (auto) 0 (0-0.6) 10^3/ul Absolute Basos (auto) 0.1 (0-0.2) 10^3/ul Absolute Nucleated RBC 0 10^3/ul Nucleated RBC % 0 APTT (26.0-36.3) seconds VBG pH (7.33-7.43) VBG pCO2 (41-51) mmHg VBG pO2 (35-45) mmHg VBG HCO3 (24-28) mmol/L VBG O2 Saturation (70-80) % VBG Base Excess (0-4) Sodium (133-145) mmol/L Potassium (3.5-5.0) mmol/L Chloride (101-111) mmol/L Carbon Dioxide (22-32) mmol/L Anion Gap (2-11) mmol/L BUN (6-24) mg/dL Creatinine (0.67-1.17) mg/dL Est GFR ( Amer) (>60) Est GFR (Non-Af Amer) (>60) BUN/Creatinine Ratio (8-20) Glucose (70-100) mg/dL POC Glucose (mg/dL) 424 H* (70-100) mg/dL Lactic Acid (0.5-2.0) mmol/L Calcium (8.6-10.3) mg/dL Magnesium (1.9-2.7) mg/dL Total Bilirubin (0.2-1.0) mg/dL AST (13-39) U/L ALT (7-52) U/L Alkaline Phosphatase (34-104) U/L C-Reactive Protein (< 5.00) mg/L Total Protein (6.4-8.9) g/dL Albumin (3.2-5.2) g/dL Globulin (2-4) g/dL Albumin/Globulin Ratio (1-3) Amylase (29-103) U/L Lipase (11.0-82.0) U/L Urine Color Urine Appearance Urine pH (5-9) Ur Specific Reading (1.010-1.030) Urine Protein (Negative) Urine Ketones (Negative) Urine Blood (Negative) Urine Nitrate (Negative) Urine Bilirubin (Negative) Urine Urobilinogen (Negative) Ur Leukocyte Esterase (Negative) Urine WBC (Auto) (Absent) Urine RBC (Auto) (Absent) Urine Bacteria (Absent) Urine Glucose (Negative) Impression: 37M HX IDDM since age 4Y presents with recurrent intractable abdominal pain w/ N/V, leukocytosis, lactic acidosis, & tachycardia DIAGNOSIS & PLAN Primary intractable abdominal pain : pain control : anti-emetics : clear liquid diet : IVFs : trend labs : telemetry : supportive care erosive esophagitis : pantoprazole 40mg IV daily HTN : start amlodipine 5mg daily : hydralazine IV PRN Secondary IDDM w/ gastroparesis : basal & correctional insulin while on clears : update A1c : continue metoclopramide HX celiac disease bipolar disorder : continue quetiapine depression/anxiety : continue bupropion once reconciled PTSD marijuana use Admission Rational: observation for intractable epigastric pain DVTp: RUY Code Status: full History & Physical Patient: PENNY MEDEROS /Age: 12 1980 37 Medical Record#: [id number] Admission Date: 05/06/17 Provider: Torri Juan DO ADDENDUM NOW INCLUDED ON THIS REPORT CC: Dr. Toby Edge* HISTORY AND PHYSICAL: DATE OF ADMISSION: 05/06/17 TIME OF ADMISSION: 6 p.m. CHIEF COMPLAINT: Nausea, vomiting, abdominal pain. HISTORY OF PRESENT ILLNESS: This is a 37-year-old man with history of type 1 diabetes and gastroparesis, who presented to the emergency department today after 1 day of nausea, vomiting, and abdominal pain. He does believe that this feels similar to a gastroparesis flare; however, he also believes he may have eaten food contaminated with gluten last night. He first experienced nausea and vomiting after dinner last night, which he got from the food pantry; so did not have control over the ingredients. The emesis was nonbloody and associated with epigastric abdominal pain that was nonradiating. He continued to have severe abdominal pain. He denies chest pain, shortness of breath, sore throat, diarrhea, fevers, chill, headache, blurry vision, ulcers, or changes in his urine output. He reports adherence to his insulin and his diet. He denies sick contact. He denies recent alcohol or substance abuse. PAST MEDICAL HISTORY: 1. Type 1 diabetes, diagnosed at age 4. 2. Gastroparesis. 3. Depression. 4. PTSD. 5. Celiac disease. HOME MEDICATIONS: 1. Basaglar 24 units in the morning and Humalog sliding scale. For the sliding scale, he starts with 1 unit at a blood glucose of 200 and increases the dose by 1 unit for every 25 above 200, but never more than 10 units at meals. 2. Reglan 10 mg b.i.d. SOCIAL HISTORY: He lives at home with his in [place]. He does not work and is on SSI. He smokes cigarettes and marijuana. He denies alcohol or illicit substance use. REVIEW OF SYSTEMS: As per HPI. The remainder of 14-point review of systems is negative. PHYSICAL EXAMINATION GENERAL: Thin young man, who appears stated age, writhing in pain on the ED stretcher. He is diaphoretic and ill appearing. VITAL SIGNS: Temp 96.9, heart rate 128, respirations 18, pulse ox 99% on room air, blood pressure 168/119. HEENT: Pupils equal, round, reactive to light. No conjunctival injection. No nystagmus. Moist mucosa. No pharyngeal exudates or erythema. NECK: No cervical adenopathy. No JVP. No nuchal rigidity. LUNGS: Clear bilaterally. CHEST: Tachycardic, unable to appreciate murmurs. PMI nondisplaced. ABDOMEN: No CVA tenderness. Soft, diffusely tender to palpation, but worse in the epigastrium. No guarding or rebound. No Brizuela sign. Abdomen is scaphoid. EXTREMITIES: No edema, no rashes. Feet are clean and without ulcers. DIAGNOSTIC STUDIES/LAB DATA: CBC 18.6, hemoglobin 12.6, platelets 583, 89.6% neutrophils. Sodium 131, potassium 4.2, chloride 93, bicarb 21, BUN 29, creatinine 2.59, glucose 351, lactic acid 5.2. Lipase 61. CT abdomen and pelvis shows hepatomegaly and distended stomach and nonobstructive right-sided nephrolithiasis. ASSESSMENT AND PLAN: This is a 37-year-old man with history of type 1 diabetes , gastroparesis, and celiac disease, who presents with 1 day of nausea, vomiting , and abdominal pain. 1. Anion gap metabolic acidosis. The etiology of this is unclear and needs further workup. He does have an elevated lactate, so he may have lactic acidosis from sepsis or he may have diabetic ketoacidosis. Check a stat urinalysis for ketones. This will determine his course of treatment and whether he needs an insulin drip. If his ketones are positive, suggestive of diabetic ketoacidosis, I suspect the underlying etiology of the diabetic ketoacidosis is a gastroparesis flare; however, it will also be important to rule out an infectious source as well as an ischemic source, so I am also checking a stat EKG, chest x-ray, and blood cultures. I am also checking a blood alcohol level, salicylates, acetaminophen to workup the etiology of both a gastroparesis flare and diabetic ketoacidosis if that is indeed what he has. 2. Systemic inflammatory response syndrome criteria with tachycardia, leukocytosis, and tachypnea. This can certainly all be a result of gastroparesis and/or diabetic ketoacidosis; however, I will continue with infectious workup as above with blood cultures, urinalysis, chest x-ray, and influenza swab. No antibiotics are indicated at this point, however, I will follow up on this workup closely and begin them as necessary. 3. Hyponatremia. This is actually pseudohyponatremia in the setting of hyperglycemia. 4. Acute renal failure. I suspect this is prerenal in the setting of gastroparesis versus diabetic ketoacidosis versus sepsis. He is severely volume deplete, so he needs more aggressive IV fluid resuscitation and I am bolusing him now. 5. Thrombocytosis. Again, this could be a reaction to a stress response and/ or sepsis noted. 6. Type 1 insulin. Check A1c and I am waiting the urine ketones to see if he needs an insulin drip or to be resumed on his home insulin regimen of Basaglar 24 units in the morning and a Humalog sliding scale. 7. Hypertension. I suspect this is related to his current pain and does not warrant treatment at this time; however, should be followed up. 8. History of posttraumatic stress disorder, depression, and suicidal ideation with a recent [facility] admission. No active psychiatric complaints and no home psychiatric medications. 9. DVT prophylaxis. Heparin subcu. 10. Diet, n.p.o. for likely gastroparesis. 11. Disposition: Admit to Medicine, disposition for floor versus ICU is pending his UA for ketones. ADDENDUM: Ms. Mederos today came back positive for ketonuria. As such, I will treat him for DKA and admit him to the ICU for an insulin drip. Give bolus of regular insulin at 0.1 units/kg now with 6 units and then start insulin drip at 0.1 units/kg per hour at 6 units per hour. He is profoundly volume deplete and needs more normal saline bolus right now until a bag of saline with potassium can be prepared. I am adding 20 mEq of potassium to each bag of normal saline and checking q.4 BMPs tonight. I have discussed the case with Dr. Edge, who will assume his care in the morning. [id number] #: [id number] #: [id number] Torri Juan DO Dictated Date/Time: 05/06/17 181 Transcribed Date/Time 05/06/172135 Copy to: CC: Torri Juan DO
[2017-05-12 00:45] LABS: Hematocrit 33 % (42-52); Hemoglobin 11.2 g/dl (14.0-18.0); Mean Corpuscular HGB Conc 34 g/dl (31-36); Mean Corpuscular Hemoglobin 29 pg (27-31); Mean Corpuscular Volume 86 fL (80-94); Mean Platelet Volume 8 um3 (7.4-10.4); Platelet Count 479 10^3/ul (150-450); Red Blood Count 3.83 10^6/ul (4.0-5.4); Red Cell Distribution Width 13 % (10.5-15); White Blood Count 23.7 10^3/ul (3.5-10.8)
[2017-05-12 00:52] LABS: ABS Basophils 0.1 10^3/ul (0-0.2); ABS Eosinophils 0 10^3/ul (0-0.6); ABS Lymphocytes 1.3 10^3/ul (1.0-4.8); ABS Monocytes 0.6 10^3/ul (0-0.8); ABS Neutrophils 21.7 10^3/ul (1.5-7.7); ABS Nucleated RBC 0 10^3/ul; Eosinophil % 0 % (0-6); Lymphocyte % 5.4 % (25-47); Nucleated Red Blood Cells % 0
[2017-05-12 00:56] LABS: EGFR Non-African American 31.5 (>60)
[2017-05-12] MEDS: NS 0.9% 1000 ML* 1,000 ML IV SCH ×5 (01:05→21:54)
[2017-05-12] MEDS: HYDROmorphone INJ* 1 MG/ML CARPUJECT SYRINGE IV PRN ×4 (01:08→15:24)
[2017-05-12] MEDS: hydrALAZINE IV* 20 MG/ML VIAL IV PRN ×3 (01:10→20:44)
[2017-05-12] MEDS ORDERED: Insulin LISPRO* 1 UNITS UNIT SUBCUT ONE (03:40)
[2017-05-12] MEDS ORDERED: Dextrose 50% Syringe 50 ML* 25 GM/50 ML SYRINGE IV PUSH PRN (03:41)
[2017-05-12] MEDS: amLODIPine TAB* 5 MG PO SCH ×3 (03:48→08:36)
[2017-05-12] MEDS: Insulin LISPRO* 1 UNITS UNIT SUBCUT SCH ×6 (03:54→23:14)
[2017-05-12] MEDS: oxyCODONE TAB* 5 MG TAB PO PRN ×4 (06:49→22:03)
[2017-05-12] MEDS: buPROPion SR TAB.SR* 100 MG PO SCH ×2 (08:26→16:46)
[2017-05-12] MEDS: Sucralfate TAB* 1 GM PO SCH ×4 (08:26→20:45)
[2017-05-12] MEDS: Docusate CAP* 100 MG PO SCH ×2 (08:27→20:29)
[2017-05-12] MEDS: Metoclopramide TAB* 10 MG PO SCH ×2 (08:27→20:52)
[2017-05-12] MEDS: Pantoprazole IV* 40 MG IV SCH (08:28)
[2017-05-12] MEDS: Ondansetron INJ* 2 MG/ML VIAL IV PRN ×2 (09:21→15:24)
--- NOTE | 2017-05-12 11:09 | RAD ---
Indication: Abdominal pain, escalating white count. CT of the abdomen and pelvis was performed without oral or IV contrast administration. Coronal and sagittal reconstructed images were obtained. Lack of oral and IV contrast administration limits examination. Lung bases demonstrate no pleural fluid, nodules or masses. Heart is of normal size without evidence of pericardial effusion. Liver is normal in size. The gallbladder is distended with no evidence of pericholecystic fluid. The spleen is normal in size. No adrenal masses are noted. The kidneys demonstrates no hydronephrosis. Perinephric infiltration of fat is noted surrounding the left kidney. No retroperitoneal adenopathy is noted. No dilated loops of bowel are noted. Stool is present throughout the colon. Urinary bladder is unremarkable. Appendix appears normal with contrast. No hernias are noted. Trace amount of ascites is noted. IMPRESSION: No abnormal masses or fluid collections are noted. Study is limited due to lack of oral and IV contrast.
[2017-05-12] MEDS ORDERED: NS 0.9% 1000 ML* 1,000 ML IV ONE (12:07)
--- NOTE | 2017-05-12 16:39 | PN ---
Subjective Date of Service: 05/12/17 Interval History: . patient admitted late last evening with abd pain and lactic acidosis (LA > 5 in ED/; HCO3 ~ 20; not DKA) ABG showed pCO2 decreased to ~ 20 & pH > 7.6 (respiratory alkalosis overriding metabolic acidosis) Aggressive IVF and anti-emetics ongoing PPI for recent erosive esophagitis requesting opiates; intermittently tolerating clear liquids. . Family History: Unchanged from Admission Social History: Unchanged from Admission Past Medical History: Unchanged from Admission Objective Active Medications: . Acetaminophen (Tylenol Tab*) 650 mg PO Q6H PRN PRN Reason: FEVER/PAIN Albuterol (Ventolin 2.5 Mg/3 Ml Neb.Delaney*) 2.5 mg INH Q2H PRN PRN Reason: SOB/WHEEZING Amlodipine Besylate (Norvasc Tab*) 5 mg PO DAILY [facility] Last Admin: 05/12/17 08:36 Dose: Not Given Bupropion HCl (Wellbutrin Sr Tab*) 100 mg PO 0800,1700 [facility] Last Admin: 05/12/17 08:26 Dose: Not Given Device (Nicotine Mouth Piece*) 1 each INH .USE WITH NICOTROL PRN PRN Reason: CRAVING Dextrose (D50w Syringe 50 Ml*) 25 gm IV PUSH .FOR FS < 60 - SS PRN PRN Reason: FS < 60 Docusate Sodium (Colace Cap*) 200 mg PO BID [facility] Last Admin: 05/12/17 08:27 Dose: Not Given Hydralazine HCl (Apresoline Iv*) 10 mg IV Q4H PRN PRN Reason: Systolic >170 Last Admin: 05/12/17 08:26 Dose: 10 mg Sodium Chloride (Ns 0.9% 1000 Ml*) 1,000 mls @ 200 mls/hr IV PER RATE [facility] Last Admin: 05/12/17 10:39 Dose: 200 mls/hr Insulin Glargine (Lantus(*)) 7 units 0.12 units/kg (7 units) SUBCUT 2100 [facility] Insulin Human Lispro (Humalog*) 0 units SUBCUT Q4H [facility] PRN Reason: Protocol Last Admin: 05/12/17 16:23 Dose: 4 units Melatonin (Melatonin (Nf)) 3 mg PO BEDTIME PRN; Protocol PRN Reason: Sleep Metoclopramide HCl (Reglan Tab*) 10 mg PO BID [facility] Last Admin: 05/12/17 08:27 Dose: 10 mg Nicotine (Nicotine Inhaler*) 10 mg INH Q2H PRN PRN Reason: CRAVING Ondansetron HCl (Zofran Inj*) 4 mg IV Q6H PRN PRN Reason: NAUSEA Last Admin: 05/12/17 15:24 Dose: 4 mg Oxycodone HCl (Roxycodone Tab*) 5 mg PO Q4H PRN PRN Reason: PAIN Last Admin: 05/12/17 12:10 Dose: 5 mg Pantoprazole Sodium (Protonix Iv*) 40 mg IV DAILY [facility] Last Admin: 05/12/17 08:28 Dose: 40 mg Quetiapine Fumarate (Seroquel Tab*) 200 mg PO BEDTIME KOMAL Sucralfate (Carafate*) 1 gm PO ACHS [facility] Last Admin: 05/12/17 15:24 Dose: 1 gm . Vital Signs - 8 hr 05/12/17 05/12/17 15:24 16:07 Respiratory 18 18 Rate Oxygen Devices in Use Now: None Appearance: NAD Eyes: No Scleral Icterus Ears/Nose/Mouth/Throat: NL Teeth, Lips, Gums Neck: Trachea Midline Respiratory: Symmetrical Chest Expansion and Respiratory Effort, Clear to Auscultation Cardiovascular: NL Sounds; No Murmurs; No JVD Abdominal: - - epigastric pain; generalized abd tenderness; not acute abd. Lymphatic: No Cervical Adenopathy Extremities: No Edema, - - cachectic overall Skin: No Rash or Ulcers Neurological: Alert and Oriented x 3 Lines/Tubes/Other Access: Clean, Dry and Intact Peripheral IV Nutrition: Taking PO's - clears Result Diagrams: 05/12/17 00:16 05/12/17 00:16 Assess/Plan/Problems-Billing . Assessment: 37 yo man with IDDM (Type I) as well as celiac disease presents with acute on chronic diabetic gastroparesis and mixed acid-base disorder including metabolic acidosis (lactic acidosis) of unclear etiology as well as (over)-compensatory respiratory alkalosis. - Patient Problems (1) Type 1 diabetes mellitus with peripheral autonomic neuropathy Current Visit: No Status: Acute Priority: High Code(s): E10.43 - TYPE 1 DIABETES W DIABETIC AUTONOMIC (POLY)NEUROPATHY Comment: - gastroparesis is a known problem for this patient. - reglan, prn - zofran, prn - blood sugar control - IVF support, as tolerated (2) Intractable abdominal pain Current Visit: No Status: Acute Priority: High Code(s): R10.9 - UNSPECIFIED ABDOMINAL PAIN Comment: - related to N/V & gastroparesis - lactic acidosis a consequence of dehydration and impaired renal function (3) Diabetic nephropathy associated with type 1 diabetes mellitus Current Visit: Yes Status: Acute Priority: High Code(s): E10.21 - TYPE 1 DIABETES MELLITUS WITH DIABETIC NEPHROPATHY Comment: - Cr ~ at baseline - continue aggressive IVF; daily labs (4) Nausea & vomiting Current Visit: No Status: Acute Priority: Medium Onset Date: 05/15/14 Code(s): R11.2 - NAUSEA WITH VOMITING, UNSPECIFIED SNOMED Code(s): 45488821 Comment: - Cyclic vomiting in setting of THC use - add tox screen for THC - reglan/zofran - both prn - opiates only as needed (they worsen motility)
[2017-05-12] MEDS: QUEtiapine TAB* 100 MG PO SCH (20:45)
[2017-05-12] MEDS ORDERED: Insulin GLARGINE(*) 1 UNITS UNIT SUBCUT SCH (21:00)
[2017-05-12] MEDS ORDERED: HYDROmorphone INJ* 2 MG/ML CARPUJECT SYRINGE IV ONE (21:00)
[2017-05-12] MEDS ORDERED: LORazepam INJ* 2 MG/ML 1 ML VIAL IV ONE (22:42)
[2017-05-13] MEDS: NS 0.9% 1000 ML* 1,000 ML IV SCH ×3 (02:57→22:30)
[2017-05-13] MEDS: Insulin LISPRO* 1 UNITS UNIT SUBCUT SCH ×5 (03:40→19:51)
[2017-05-13] MEDS: oxyCODONE TAB* 5 MG TAB PO PRN ×5 (03:45→21:03)
[2017-05-13] MEDS: Ondansetron INJ* 2 MG/ML VIAL IV PRN ×2 (03:45→10:34)
[2017-05-13 06:44] LABS: ABS Basophils 0.1 10^3/ul (0-0.2); ABS Eosinophils 0.1 10^3/ul (0-0.6); ABS Lymphocytes 1.9 10^3/ul (1.0-4.8); ABS Monocytes 0.6 10^3/ul (0-0.8); ABS Neutrophils 11.1 10^3/ul (1.5-7.7); ABS Nucleated RBC 0 10^3/ul; Eosinophil % 0.8 % (0-6); Hematocrit 28 % (42-52); Hemoglobin 9.4 g/dl (14.0-18.0); Lymphocyte % 13.8 % (25-47); Mean Corpuscular HGB Conc 34 g/dl (31-36); Mean Corpuscular Hemoglobin 29 pg (27-31); Mean Corpuscular Volume 87 fL (80-94); Mean Platelet Volume 7 um3 (7.4-10.4); Nucleated Red Blood Cells % 0.1; Platelet Count 397 10^3/ul (150-450); Red Blood Count 3.23 10^6/ul (4.0-5.4); Red Cell Distribution Width 13 % (10.5-15); White Blood Count 13.8 10^3/ul (3.5-10.8)
[2017-05-13 07:06] LABS: EGFR Non-African American 36.9 (>60)
[2017-05-13] MEDS: Acetaminophen TAB* 325 MG PO PRN ×3 (07:59→21:03)
[2017-05-13] MEDS: Sucralfate TAB* 1 GM PO SCH ×4 (08:03→19:51)
[2017-05-13] MEDS: buPROPion SR TAB.SR* 100 MG PO SCH ×2 (08:05→16:49)
--- NOTE | 2017-05-13 08:29 | PN ---
Subjective Date of Service: 05/13/17 Interval History: Last emesis yesterday. Pt states he can drink water OK but has nausea. Pain present but less than on admission. Family History: Unchanged from Admission Social History: Unchanged from Admission Past Medical History: Unchanged from Admission Objective Active Medications: Acetaminophen (Tylenol Tab*) 650 mg PO Q6H PRN PRN Reason: FEVER/PAIN Last Admin: 05/13/17 07:59 Dose: 650 mg Albuterol (Ventolin 2.5 Mg/3 Ml Neb.Delaney*) 2.5 mg INH Q2H PRN PRN Reason: SOB/WHEEZING Amlodipine Besylate (Norvasc Tab*) 5 mg PO DAILY [facility] Last Admin: 05/12/17 08:36 Dose: Not Given Bupropion HCl (Wellbutrin Sr Tab*) 100 mg PO 0800,1700 [facility] Last Admin: 05/13/17 08:05 Dose: Not Given Device (Nicotine Mouth Piece*) 1 each INH .USE WITH NICOTROL PRN PRN Reason: CRAVING Dextrose (D50w Syringe 50 Ml*) 25 gm IV PUSH .FOR FS < 60 - SS PRN PRN Reason: FS < 60 Docusate Sodium (Colace Cap*) 200 mg PO BID [facility] Last Admin: 05/12/17 20:29 Dose: Not Given Hydralazine HCl (Apresoline Iv*) 10 mg IV Q4H PRN PRN Reason: Systolic >170 Last Admin: 05/12/17 20:44 Dose: 10 mg Insulin Glargine (Lantus(*)) 20 units SUBCUT 0900 [facility] Insulin Human Lispro (Humalog*) 0 units SUBCUT Q4H [facility] PRN Reason: Protocol Last Admin: 05/13/17 08:02 Dose: 2 units Metoclopramide HCl (Reglan Tab*) 10 mg PO TID [facility] Nicotine (Nicotine Inhaler*) 10 mg INH Q2H PRN PRN Reason: CRAVING Ondansetron HCl (Zofran Inj*) 4 mg IV Q6H PRN PRN Reason: NAUSEA Last Admin: 05/13/17 03:45 Dose: 4 mg Oxycodone HCl (Roxycodone Tab*) 5 mg PO Q4H PRN PRN Reason: PAIN Last Admin: 05/13/17 08:00 Dose: 5 mg Pantoprazole Sodium (Protonix Iv*) 40 mg IV DAILY [facility] Last Admin: 05/12/17 08:28 Dose: 40 mg Quetiapine Fumarate (Seroquel Tab*) 200 mg PO BEDTIME [facility] Last Admin: 05/12/17 20:45 Dose: 200 mg Sucralfate (Carafate*) 1 gm PO ACHS [facility] Last Admin: 05/13/17 08:03 Dose: 1 gm Vital Signs - 8 hr 05/13/17 05/13/17 05/13/17 00:31 03:38 03:45 Temperature 98.0 F Pulse Rate 122 Respiratory 17 16 18 Rate Blood Pressure 150/83 (mmHg) O2 Sat by Pulse 99 Oximetry 05/13/17 05/13/17 05/13/17 05:49 07:25 08:00 Temperature 98.3 F Pulse Rate 114 Respiratory 17 16 28 Rate Blood Pressure 159/90 (mmHg) O2 Sat by Pulse 99 Oximetry Oxygen Devices in Use Now: None Appearance: Alert, on his side in bed. In fair spirits. Looks slightly uncomfortable. Eyes: No Scleral Icterus Respiratory: Symmetrical Chest Expansion and Respiratory Effort, Clear to Auscultation, Clear to Percussion Cardiovascular: NL Sounds; No Murmurs; No JVD, RRR, No Edema Abdominal: NL Sounds; No Tenderness; No Distention, No Hepatosplenomegaly, - Extremities: No Edema, No Clubbing, Cyanosis, - Skin: No Rash or Ulcers, No Nodules or Sclerosis, - Neurological: Alert and Oriented x 3, NL Sensation Result Diagrams: 05/13/17 06:34 05/13/17 06:34 Additional Lab and Data: Lab Results 05/11/17 05/11/17 05/11/17 Range/Units 18:17 18:45 18:45 WBC 17.6 H (3.5-10.8) 10^3/ul RBC 4.21 (4.0-5.4) 10^6/ul Hgb 12.1 L (14.0-18.0) g/dl Hct 36 L (42-52) % MCV 85 (80-94) fL MCH 29 (27-31) pg MCHC 34 (31-36) g/dl RDW 14 (10.5-15) % Plt Count 542 H D (150-450) 10^3/ul MPV 8 (7.4-10.4) um3 Neut % (Auto) 90.3 H (38-83) % Lymph % (Auto) 6.6 L (25-47) % [place] % (Auto) 2.7 (0-7) % Eos % (Auto) 0.1 (0-6) % Baso % (Auto) 0.3 (0-2) % Absolute Neuts (auto) 15.9 H (1.5-7.7) 10^3/ul Absolute Lymphs (auto) 1.2 (1.0-4.8) 10^3/ul Absolute Monos (auto) 0.5 (0-0.8) 10^3/ul Absolute Eos (auto) 0 (0-0.6) 10^3/ul Absolute Basos (auto) 0.1 (0-0.2) 10^3/ul Absolute Nucleated RBC 0 10^3/ul Nucleated RBC % 0 APTT (26.0-36.3) seconds VBG pH (7.33-7.43) VBG pCO2 (41-51) mmHg VBG pO2 (35-45) mmHg VBG HCO3 (24-28) mmol/L VBG O2 Saturation (70-80) % VBG Base Excess (0-4) Sodium 129 L (133-145) mmol/L Potassium 3.8 (3.5-5.0) mmol/L Chloride 91 L (101-111) mmol/L Carbon Dioxide 20 L (22-32) mmol/L Anion Gap 18 H (2-11) mmol/L BUN 26 H (6-24) mg/dL Creatinine 2.57 H (0.67-1.17) mg/dL Est GFR ( Amer) 36.6 (>60) Est GFR (Non-Af Amer) 28.4 (>60) BUN/Creatinine Ratio 10.1 (8-20) Glucose 354 H (70-100) mg/dL POC Glucose (mg/dL) 330 H (70-100) mg/dL Lactic Acid (0.5-2.0) mmol/L Calcium 10.6 H (8.6-10.3) mg/dL Magnesium 1.9 (1.9-2.7) mg/dL Total Bilirubin 0.50 (0.2-1.0) mg/dL AST 29 (13-39) U/L ALT 18 (7-52) U/L Alkaline Phosphatase 90 (34-104) U/L C-Reactive Protein < 1.00 (< 5.00) mg/L Total Protein 8.1 (6.4-8.9) g/dL Albumin 4.5 (3.2-5.2) g/dL Globulin 3.6 (2-4) g/dL Albumin/Globulin Ratio 1.3 (1-3) Amylase 96 (29-103) U/L Lipase 22 (11.0-82.0) U/L 05/11/17 05/11/17 05/11/17 Range/Units 18:45 18:45 18:45 WBC (3.5-10.8) 10^3/ul RBC (4.0-5.4) 10^6/ul Hgb (14.0-18.0) g/dl Hct (42-52) % MCV (80-94) fL MCH (27-31) pg MCHC (31-36) g/dl RDW (10.5-15) % Plt Count (150-450) 10^3/ul MPV (7.4-10.4) um3 Neut % (Auto) (38-83) % Lymph % (Auto) (25-47) % [place] % (Auto) (0-7) % Eos % (Auto) (0-6) % Baso % (Auto) (0-2) % Absolute Neuts (auto) (1.5-7.7) 10^3/ul Absolute Lymphs (auto) (1.0-4.8) 10^3/ul Absolute Monos (auto) (0-0.8) 10^3/ul Absolute Eos (auto) (0-0.6) 10^3/ul Absolute Basos (auto) (0-0.2) 10^3/ul Absolute Nucleated RBC 10^3/ul Nucleated RBC % APTT 28.5 (26.0-36.3) seconds VBG pH 7.61 H (7.33-7.43) VBG pCO2 21 L (41-51) mmHg VBG pO2 28 L (35-45) mmHg VBG HCO3 25.4 (24-28) mmol/L VBG O2 Saturation 70.5 (70-80) % VBG Base Excess 1.4 (0-4) Sodium (133-145) mmol/L Potassium (3.5-5.0) mmol/L Chloride (101-111) mmol/L Carbon Dioxide (22-32) mmol/L Anion Gap (2-11) mmol/L BUN (6-24) mg/dL Creatinine (0.67-1.17) mg/dL Est GFR ( Amer) (>60) Est GFR (Non-Af Amer) (>60) BUN/Creatinine Ratio (8-20) Glucose (70-100) mg/dL POC Glucose (mg/dL) (70-100) mg/dL Lactic Acid 5.6 H* (0.5-2.0) mmol/L Calcium (8.6-10.3) mg/dL Magnesium (1.9-2.7) mg/dL Total Bilirubin (0.2-1.0) mg/dL AST (13-39) U/L ALT (7-52) U/L Alkaline Phosphatase (34-104) U/L C-Reactive Protein (< 5.00) mg/L Total Protein (6.4-8.9) g/dL Albumin (3.2-5.2) g/dL Globulin (2-4) g/dL Albumin/Globulin Ratio (1-3) Amylase (29-103) U/L Lipase (11.0-82.0) U/L Assess/Plan/Problems-Billing . Assessment: 37 yo man with IDDM (Type I) as well as celiac disease presents with acute on chronic diabetic gastroparesis and mixed acid-base disorder including metabolic acidosis (lactic acidosis) of unclear etiology as well as (over)-compensatory respiratory alkalosis. - Patient Problems (1) Nausea & vomiting Current Visit: No Status: Acute Priority: Medium Onset Date: 05/15/14 Code(s): R11.2 - NAUSEA WITH VOMITING, UNSPECIFIED SNOMED Code(s): 45194359 Comment: His typical course. Oral intake >1200 ml 03/11, will decrease IV fluids. (2) Type 1 diabetes mellitus with nephropathy Current Visit: No Status: Acute Code(s): E10.21 - TYPE 1 DIABETES MELLITUS WITH DIABETIC NEPHROPATHY SNOMED Code(s): 14723784 Comment: Increase Lantus to 20 U 9 AM 05/13 (home dose is 24 U). Continue Lispro by SS. (3) Diabetic nephropathy associated with type 1 diabetes mellitus Current Visit: Yes Status: Acute Priority: High Code(s): E10.21 - TYPE 1 DIABETES MELLITUS WITH DIABETIC NEPHROPATHY SNOMED Code(s): 155784041 Comment: - Cr ~ at baseline Needs outpt nephrology fup. (4) Psychiatric disorder Current Visit: Yes Status: Acute Code(s): F99 - MENTAL DISORDER, NOT OTHERWISE SPECIFIED SNOMED Code(s): 11868871 Comment: Multiple dx's in past, most recent [facility] admission for suicidal ideation/depression. Continue quetiapine although this may not be the best med for a diabetic. Encourage psychiatric fup also.
[2017-05-13] MEDS: Metoclopramide TAB* 10 MG PO SCH ×3 (08:44→19:52)
[2017-05-13] MEDS: Pantoprazole IV* 40 MG IV SCH (10:42)
[2017-05-13] MEDS: Insulin GLARGINE(*) 1 UNITS UNIT SUBCUT SCH (10:46)
[2017-05-13] MEDS: amLODIPine TAB* 5 MG PO SCH (11:29)
[2017-05-13] MEDS: Docusate CAP* 100 MG PO SCH ×2 (11:33→19:52)
[2017-05-13] MEDS: QUEtiapine TAB* 100 MG PO SCH (19:52)
[2017-05-14] MEDS: Insulin LISPRO* 1 UNITS UNIT SUBCUT SCH ×6 (00:03→20:52)
[2017-05-14] MEDS: Acetaminophen TAB* 325 MG PO PRN ×2 (06:04→17:39)
[2017-05-14] MEDS: oxyCODONE TAB* 5 MG TAB PO PRN ×3 (06:04→17:39)
[2017-05-14] MEDS: Ondansetron INJ* 2 MG/ML VIAL IV PRN (06:16)
[2017-05-14] MEDS: Metoclopramide TAB* 10 MG PO SCH ×4 (07:52→21:25)
[2017-05-14] MEDS: Sucralfate TAB* 1 GM PO SCH ×4 (07:53→21:25)
[2017-05-14] MEDS: Pantoprazole IV* 40 MG IV SCH (07:53)
[2017-05-14] MEDS: buPROPion SR TAB.SR* 100 MG PO SCH ×2 (07:55→16:11)
[2017-05-14] MEDS: Docusate CAP* 100 MG PO SCH ×2 (07:56→21:17)
[2017-05-14] MEDS: amLODIPine TAB* 5 MG PO SCH (09:35)
[2017-05-14] MEDS: Insulin GLARGINE(*) 1 UNITS UNIT SUBCUT SCH (09:36)
--- NOTE | 2017-05-14 10:34 | PN ---
Subjective Date of Service: 05/14/17 Interval History: Patient seen and examined. States he is feeling better, pain is improved on 10mg oxy Q4h. Tolerating clears since last night with no vomiting. [place] SOB, no chest pain, overall improving. Family History: Unchanged from Admission Social History: Unchanged from Admission Past Medical History: Unchanged from Admission Objective Active Medications: Acetaminophen (Tylenol Tab*) 650 mg PO Q6H PRN PRN Reason: FEVER/PAIN Last Admin: 05/14/17 06:04 Dose: 650 mg Albuterol (Ventolin 2.5 Mg/3 Ml Neb.Delaney*) 2.5 mg INH Q2H PRN PRN Reason: SOB/WHEEZING Amlodipine Besylate (Norvasc Tab*) 5 mg PO DAILY [facility] Last Admin: 05/14/17 09:35 Dose: 5 mg Bupropion HCl (Wellbutrin Sr Tab*) 100 mg PO 0800,1700 [facility] Last Admin: 05/14/17 07:55 Dose: Not Given Device (Nicotine Mouth Piece*) 1 each INH .USE WITH NICOTROL PRN PRN Reason: CRAVING Dextrose (D50w Syringe 50 Ml*) 25 gm IV PUSH .FOR FS < 60 - SS PRN PRN Reason: FS < 60 Docusate Sodium (Colace Cap*) 200 mg PO BID [facility] Last Admin: 05/14/17 07:56 Dose: Not Given Hydralazine HCl (Apresoline Iv*) 10 mg IV Q4H PRN PRN Reason: Systolic >170 Last Admin: 05/12/17 20:44 Dose: 10 mg Sodium Chloride (Ns 0.9% 1000 Ml*) 1,000 mls @ 75 mls/hr IV PER RATE [facility] Last Admin: 05/13/17 22:30 Dose: 75 mls/hr Insulin Glargine (Lantus(*)) 20 units SUBCUT 0900 [facility] Last Admin: 05/14/17 09:36 Dose: 20 units Insulin Human Lispro (Humalog*) 0 units SUBCUT ACHS [facility] PRN Reason: Protocol Metoclopramide HCl (Reglan Tab*) 10 mg PO TID [facility] Last Admin: 05/14/17 07:52 Dose: 10 mg Nicotine (Nicotine Inhaler*) 10 mg INH Q2H PRN PRN Reason: CRAVING Ondansetron HCl (Zofran Inj*) 4 mg IV Q6H PRN PRN Reason: NAUSEA Last Admin: 05/14/17 06:16 Dose: 4 mg Oxycodone HCl (Roxycodone Tab*) 10 mg PO Q4H PRN PRN Reason: PAIN Last Admin: 05/14/17 06:04 Dose: 10 mg Pantoprazole Sodium (Protonix Iv*) 40 mg IV DAILY [facility] Last Admin: 05/14/17 07:53 Dose: 40 mg Quetiapine Fumarate (Seroquel Tab*) 200 mg PO BEDTIME [facility] Last Admin: 05/13/17 19:52 Dose: 200 mg Sucralfate (Carafate*) 1 gm PO ACHS [facility] Last Admin: 05/14/17 07:53 Dose: 1 gm Vital Signs - 8 hr 05/14/17 05/14/17 05/14/17 03:05 06:04 06:40 Temperature 98.3 F Pulse Rate 104 92 Respiratory 16 16 17 Rate Blood Pressure 164/93 (mmHg) O2 Sat by Pulse 99 99 Oximetry 05/14/17 05/14/17 05/14/17 07:41 07:56 08:00 Temperature 98.2 F Pulse Rate 92 Respiratory 18 18 16 Rate Blood Pressure 165/97 (mmHg) O2 Sat by Pulse 99 Oximetry Oxygen Devices in Use Now: None Appearance: Alert, NAD Eyes: No Scleral Icterus Ears/Nose/Mouth/Throat: - - dry oral mucosa Neck: Trachea Midline Respiratory: Symmetrical Chest Expansion and Respiratory Effort, Clear to Auscultation Cardiovascular: NL Sounds; No Murmurs; No JVD, - Skin: No Rash or Ulcers Neurological: Alert and Oriented x 3, NL Sensation, NL Gait, NL Muscle Strength and Tone Nutrition: - - tolerating clears Result Diagrams: 05/13/17 06:34 05/13/17 06:34 Additional Lab and Data: Lab Results 05/11/17 05/11/17 05/11/17 Range/Units 18:17 18:45 18:45 WBC 17.6 H (3.5-10.8) 10^3/ul RBC 4.21 (4.0-5.4) 10^6/ul Hgb 12.1 L (14.0-18.0) g/dl Hct 36 L (42-52) % MCV 85 (80-94) fL MCH 29 (27-31) pg MCHC 34 (31-36) g/dl RDW 14 (10.5-15) % Plt Count 542 H D (150-450) 10^3/ul MPV 8 (7.4-10.4) um3 Neut % (Auto) 90.3 H (38-83) % Lymph % (Auto) 6.6 L (25-47) % [place] % (Auto) 2.7 (0-7) % Eos % (Auto) 0.1 (0-6) % Baso % (Auto) 0.3 (0-2) % Absolute Neuts (auto) 15.9 H (1.5-7.7) 10^3/ul Absolute Lymphs (auto) 1.2 (1.0-4.8) 10^3/ul Absolute Monos (auto) 0.5 (0-0.8) 10^3/ul Absolute Eos (auto) 0 (0-0.6) 10^3/ul Absolute Basos (auto) 0.1 (0-0.2) 10^3/ul Absolute Nucleated RBC 0 10^3/ul Nucleated RBC % 0 APTT (26.0-36.3) seconds VBG pH (7.33-7.43) VBG pCO2 (41-51) mmHg VBG pO2 (35-45) mmHg VBG HCO3 (24-28) mmol/L VBG O2 Saturation (70-80) % VBG Base Excess (0-4) Sodium 129 L (133-145) mmol/L Potassium 3.8 (3.5-5.0) mmol/L Chloride 91 L (101-111) mmol/L Carbon Dioxide 20 L (22-32) mmol/L Anion Gap 18 H (2-11) mmol/L BUN 26 H (6-24) mg/dL Creatinine 2.57 H (0.67-1.17) mg/dL Est GFR ( Amer) 36.6 (>60) Est GFR (Non-Af Amer) 28.4 (>60) BUN/Creatinine Ratio 10.1 (8-20) Glucose 354 H (70-100) mg/dL POC Glucose (mg/dL) 330 H (70-100) mg/dL Lactic Acid (0.5-2.0) mmol/L Calcium 10.6 H (8.6-10.3) mg/dL Magnesium 1.9 (1.9-2.7) mg/dL Total Bilirubin 0.50 (0.2-1.0) mg/dL AST 29 (13-39) U/L ALT 18 (7-52) U/L Alkaline Phosphatase 90 (34-104) U/L C-Reactive Protein < 1.00 (< 5.00) mg/L Total Protein 8.1 (6.4-8.9) g/dL Albumin 4.5 (3.2-5.2) g/dL Globulin 3.6 (2-4) g/dL Albumin/Globulin Ratio 1.3 (1-3) Amylase 96 (29-103) U/L Lipase 22 (11.0-82.0) U/L 05/11/17 05/11/17 05/11/17 Range/Units 18:45 18:45 18:45 WBC (3.5-10.8) 10^3/ul RBC (4.0-5.4) 10^6/ul Hgb (14.0-18.0) g/dl Hct (42-52) % MCV (80-94) fL MCH (27-31) pg MCHC (31-36) g/dl RDW (10.5-15) % Plt Count (150-450) 10^3/ul MPV (7.4-10.4) um3 Neut % (Auto) (38-83) % Lymph % (Auto) (25-47) % [place] % (Auto) (0-7) % Eos % (Auto) (0-6) % Baso % (Auto) (0-2) % Absolute Neuts (auto) (1.5-7.7) 10^3/ul Absolute Lymphs (auto) (1.0-4.8) 10^3/ul Absolute Monos (auto) (0-0.8) 10^3/ul Absolute Eos (auto) (0-0.6) 10^3/ul Absolute Basos (auto) (0-0.2) 10^3/ul Absolute Nucleated RBC 10^3/ul Nucleated RBC % APTT 28.5 (26.0-36.3) seconds VBG pH 7.61 H (7.33-7.43) VBG pCO2 21 L (41-51) mmHg VBG pO2 28 L (35-45) mmHg VBG HCO3 25.4 (24-28) mmol/L VBG O2 Saturation 70.5 (70-80) % VBG Base Excess 1.4 (0-4) Sodium (133-145) mmol/L Potassium (3.5-5.0) mmol/L Chloride (101-111) mmol/L Carbon Dioxide (22-32) mmol/L Anion Gap (2-11) mmol/L BUN (6-24) mg/dL Creatinine (0.67-1.17) mg/dL Est GFR ( Amer) (>60) Est GFR (Non-Af Amer) (>60) BUN/Creatinine Ratio (8-20) Glucose (70-100) mg/dL POC Glucose (mg/dL) (70-100) mg/dL Lactic Acid 5.6 H* (0.5-2.0) mmol/L Calcium (8.6-10.3) mg/dL Magnesium (1.9-2.7) mg/dL Total Bilirubin (0.2-1.0) mg/dL AST (13-39) U/L ALT (7-52) U/L Alkaline Phosphatase (34-104) U/L C-Reactive Protein (< 5.00) mg/L Total Protein (6.4-8.9) g/dL Albumin (3.2-5.2) g/dL Globulin (2-4) g/dL Albumin/Globulin Ratio (1-3) Amylase (29-103) U/L Lipase (11.0-82.0) U/L Assess/Plan/Problems-Billing . Assessment: This is a 37 year old male with IDDM, diabetic gastroparesis and Celiac disease presents with intractable abdominal pain and vomiting, with accompanying electrolyte imbalances. - Patient Problems (1) Diabetic gastroparesis Current Visit: Yes Code(s): E11.43 - TYPE 2 DIABETES W DIABETIC AUTONOMIC ( POLY)NEUROPATHY; K31.84 - GASTROPARESIS SNOMED Code(s): 537941651 Comment: - Advance from clears to soft diet - Continue IVF - Continue oxycodone 10mg Q4h and reglan before meals - Refer for pain clinic at discharge - Acidosis improving (2) Diabetic nephropathy associated with type 1 diabetes mellitus Code(s): E10.21 - TYPE 1 DIABETES MELLITUS WITH DIABETIC NEPHROPATHY SNOMED Code(s): 099121319 Comment: - Creatinine stable - Recommend nephrology outpatient - Continue IVF (3) Psychiatric disorder Code(s): F99 - MENTAL DISORDER, NOT OTHERWISE SPECIFIED SNOMED Code(s): 09106667 Comment: - Mood stable, continue seroquel, may want to consider alternatives given hx of DM (4) Esophagitis Code(s): K20.9 - ESOPHAGITIS, UNSPECIFIED SNOMED Code(s): 51371803 Comment: - Had endoscopy last week with espohagitis no bleeding - Continue carafate and PPI (5) Intractable abdominal pain Status: Acute Code(s): R10.9 - UNSPECIFIED ABDOMINAL PAIN SNOMED Code(s): 19403611 Comment: - 2/2 garstroparesis, currently improving (6) Celiac disease Code(s): K90.0 - CELIAC DISEASE SNOMED Code(s): 222027126 Comment: - Gluten free diet Status and Disposition: Remain inpatient, likely dispo planning to home tomorrow Counseling and/or Coordination of Care Minutes: coordinated with staff
[2017-05-14] MEDS ORDERED: Metoclopramide TAB* 10 MG ONE (11:33)
[2017-05-14 13:02] LABS: EGFR Non-African American 37.8 (>60)
[2017-05-14] MEDS: QUEtiapine TAB* 100 MG PO SCH (21:25)
[2017-05-15] MEDS: oxyCODONE TAB* 5 MG TAB PO PRN (05:38)
[2017-05-15] MEDS: Insulin LISPRO* 1 UNITS UNIT SUBCUT SCH (07:44)
[2017-05-15] MEDS: buPROPion SR TAB.SR* 100 MG PO SCH (08:02)
[2017-05-15] MEDS: Sucralfate TAB* 1 GM PO SCH (08:11)
[2017-05-15] MEDS: Pantoprazole IV* 40 MG IV SCH (08:11)
[2017-05-15] MEDS: Metoclopramide TAB* 10 MG PO SCH (08:11)
[2017-05-15] MEDS: Insulin GLARGINE(*) 1 UNITS UNIT SUBCUT SCH (08:11)
[2017-05-15] MEDS: Docusate CAP* 100 MG PO SCH (08:11)
[2017-05-15] MEDS: amLODIPine TAB* 5 MG PO SCH (08:11)
[2017-05-15 09:25] VITALS: BP 149/90
--- NOTE | 2017-05-18 15:38 | DS ---
CC: Tima Riojas MD; Dr. Marycarmen Mcclure* DISCHARGE SUMMARY: DATE OF ADMISSION: 05/11/17 DATE OF DISCHARGE: 05/15/17 PRIMARY CARE PROVIDER: Dr. Marycarmen Mcclure. ATTENDING FOR THIS ADMISSION: Tima Riojas MD* (dictated by Kiki Chamorro NP). HOSPITAL COURSE: This is a 37-year-old gentleman with a history of type 1 diabetes, erosive gastritis, celiac disease, diabetic gastroparesis, chronic nausea and vomiting, underlying psychiatric disorders, diabetic nephropathy, and intractable abdominal pain. The patient had been recently admitted under Dr. Edge's service 4 days prior for abdominal pain and gastritis. The patient subsequently fired Dr. Edge as his primary care physician, returned to the emergency department several days after being discharged with complaints of the same. The patient does have a significant amount of psychiatric history, also marijuana use, and posttraumatic stress disorder, also noncompliance with his diabetic regimen. The patient stated he had intractable nausea and vomiting and abdominal pain and was not able to eat. He was not; however, in diabetic ketoacidosis on this admission; however, he was in the prior. The patient was given aggressive fluid hydration, kept n.p.o., diet was advanced slowly, the patient was able to tolerate clears and then a soft diet, diabetic and gluten free, and was subsequently discharged to home. PHYSICAL EXAMINATION: Vital signs on the day of discharge: Temperature 97.9, blood pressure 144/89, heart rate 99, satting 100% on room air, respiratory rate 18. HEENT: The patient is atraumatic and normocephalic. PERRLA. Nonicteric sclerae. Neck was supple, nontender. No JVD noted. No carotid bruit auscultated. No thyromegaly appreciated. Cardiovascular: S1, S2 present. Normal rate and rhythm, regular. No ectopy on his EKG at admission. Lungs are clear bilaterally to auscultation with no wheezing, rhonchi, or rales. Abdomen is soft, mildly tender in the epigastrium. Positive bowel sounds in all 4 quadrants. He is having normal bowel movements and passing flatus. was deferred. Musculoskeletal: There is no clubbing and no cyanosis. He has a very slight build, some noted muscle wasting; however, he does have steady gait. Neurologic: Grossly intact with no focal deficits. Psychiatric: Cooperative and appropriate. LABORATORY DATA: WBC is 13.8, RBC is 3.23, hemoglobin 9.4, hematocrit 28, platelets 397,000. Sodium 130, potassium 3.6, chloride 99, CO2 of 26, BUN 10, creatinine 2.01, glucose ranging between 144 and 245. MEDICATIONS AT THE TIME OF DISCHARGE: Include; 1. Seroquel 200 mg at bedtime. 2. Reglan 10 mg 2 times a day. 3. Lantus 24 units daily. 4. Bupropion 100 mg 2 times a day. 5. Amlodipine 5 mg daily. 6. Lispro sliding scale 0 to 10 units a.c. and h.s. DISCHARGE DIAGNOSES: 1. Diabetic gastroparesis. 2. Esophagitis. 3. Intractable abdominal pain. 4. Celiac disease. 5. Diabetic nephropathy and chronic renal insufficiency. 6. Psychiatric disorder including post-traumatic stress disorder. Patient was discharged in stable condition. All questions were answered. The patient was instructed to follow up with Dr. Marycarmen Mcclure on 05/20/17. This was a new followup for him for a new primary care provider since he did not want to see Dr. Edge anymore. The patient was also instructed to discuss GI endoscopy, perhaps colonoscopy with Dr. Mcclure regarding his chronic diabetic gastroparesis and his inability to eat. The patient stated he would discuss this with his new primary care provider in an outpatient setting. KIKI CHAMORRO NP [id number]/[facility] #: [id number] [place]
== END 2017-05-15 12:30 | disposition home or self-care (01) | DRG 48 ==
LOC: ED 16:56 → MED 05-12 00:06 → OBSVTOIN 05-12 15:12
PROVIDERS: ADMIT Hospitalist; ATTEND Internal Medicine
DX: E10.43 Type 1 diabetes mellitus with diabetic autonomic (poly)neuropathy (principal); E87.3 Alkalosis; E10.21 Type 1 diabetes mellitus with diabetic nephropathy; E87.2 Acidosis; K31.84 Gastroparesis; K90.0 Celiac disease; K20.9 Esophagitis, unspecified; I10 Essential (primary) hypertension; F31.9 Bipolar disorder, unspecified; F32.9 Major depressive disorder, single episode, unspecified; F41.9 Anxiety disorder, unspecified; F43.10 Post-traumatic stress disorder, unspecified; F17.210 Nicotine dependence, cigarettes, uncomplicated; F12.10 Cannabis abuse, uncomplicated; Z79.4 Long term (current) use of insulin; Z91.018 Allergy to other foods; Z79.899 Other long term (current) drug therapy
CPT/HCPCS: 36415; 74176; 80048; 80053; 80307; 81003; 81015; 82150; 82784; 82803; 83036; 83516; 83605; 83690; 83735; 84100; 85025; 85730; 86140; 99284; 99406; A9270-GY; J0360; J1170; J2060; J2270; J2405; J2765

== ENCOUNTER 2017-07-03 14:16 | Inpatient (IN) | payer OTHER ==
[2017-07-03] MEDS ORDERED: HYDROmorphone INJ* 2 MG/ML CARPUJECT SYRINGE IV ONE (18:34)
[2017-07-03] MEDS ORDERED: HYDROmorphone INJ* 1 MG/ML CARPUJECT SYRINGE IV ONE (18:34)
[2017-07-03] MEDS ORDERED: NS 0.9% 1000 ML* 1,000 ML IV ONE ×3 (18:34→20:43)
[2017-07-03] MEDS ORDERED: Ondansetron INJ* 2 MG/ML VIAL IV ONE (18:34)
[2017-07-03 19:25] LABS: Hematocrit 33 % (42-52); Mean Corpuscular HGB Conc 34 g/dl (31-36); Mean Corpuscular Hemoglobin 29 pg (27-31); Mean Corpuscular Volume 85 fL (80-94); Mean Platelet Volume 8.2 um3 (7.4-10.4); Platelet Count 548 10^3/ul (150-450); Red Blood Count 3.85 10^6/ul (4.0-5.4); Red Cell Distribution Width 13 % (10.5-15); White Blood Count 28.3 10^3/ul (3.5-10.8)
[2017-07-03 19:25] LABS: EGFR Non-African American 27.5 (>60)
[2017-07-03] MEDS ORDERED: Insulin REGULAR IVPB 100 UNITS/100 ML UNIT IVPB ONE (19:51)
[2017-07-03 19:57] LABS: ABS Basophils 0.1 10^3/ul (0-0.2); ABS Eosinophils 0 10^3/ul (0-0.6); ABS Lymphocytes 0.8 10^3/ul (1.0-4.8); ABS Monocytes 0.7 10^3/ul (0-0.8); ABS Neutrophils 26.7 10^3/ul (1.5-7.7); ABS Nucleated RBC 0 10^3/ul; Eosinophil % 0 % (0-6); Lymphocyte % 2.7 % (25-47); Nucleated Red Blood Cells % 0
--- NOTE | 2017-07-03 20:20 | ED ---
Jamar Sarkar Natalie, scribed for Naveed Chao MD on 07/03/17 at 1845 . Abdominal Pain/Male - HPI Summary HPI Summary: The pt is a 37 y/o M presenting to the ED c/o upper epigastric abd pain starting yesterday. The pain is rated 8/10 in severity. The pt has taken Tylenol ot treat the pain [employer] to little relief. He has had similar episodes of this pain. He takes Reglan, Seroquel, and Humalog as prescribed. - History of Current Complaint Chief Complaint: EDAbdPain Stated Complaint: ABD PAIN Time Seen by Provider: 07/03/17 18:12 Hx Obtained From: Patient Onset/Duration: Sudden Onset, Lasting Hours - started yesterday, Lasting Days, Still Present Timing: Constant Severity Initially: Severe Severity Currently: Severe Pain Intensity: 8 Pain Scale Used: 0-10 Numeric Location: Epigastric Radiates: No Aggravating Factor(s): Nothing Alleviating Factor(s): Medications - Tylenol - Allergies/Home Medications Allergies/Adverse Reactions: Allergies Allergy/AdvReac Type Severity Reaction Status Date / Time gluten Allergy Abdominal Verified 05/06/17 12:52 Pain Home Medications: Home Medications Acetaminophen TAB* [Tylenol TAB*] 650 mg PO Q4H PRN 07/03/17 [History Confirmed 07/03/17] Insulin Glargine,Hum.rec.anlog [Basaglar Kwikpen] 24 unit SUBCUT QAM 07/03/17 [ History Confirmed 07/03/17] Insulin LISPRO* [HumaLOG*] 0 units SUBCUT DIRECTED 07/03/17 [History Confirmed 07/03/17] Metoclopramide TAB* [Reglan TAB*] 10 mg PO BID 07/03/17 [History Confirmed 07/03] QUEtiapine TAB* [SEROquel TAB*] 200 mg PO BEDTIME 07/03/17 [History Confirmed ] PMH/Surg Hx/FS Hx/Imm Hx Endocrine/Hematology History: Reports: Hx Diabetes - Type 1 Denies: Hx Anticoagulant Therapy, Hx Thyroid Disease, Hx Anemia Cardiovascular History: Denies: Hx Hypertension, Hx Pacemaker/ICD, Hx Peripheral Vascular Disease, Other Cardiovascular Problems/Disorders Respiratory History: Reports: Hx Pneumonia Denies: Hx Asthma, Hx Chronic Bronchitis, Hx Chronic Obstructive Pulmonary Disease (COPD), Hx Cystic Fibrosis, Hx Lung Cancer, Hx Pleural Effusion, Hx Pulmonary Edema, Hx Pulmonary Embolism, Hx Seasonal Allergies, Hx Sleep Apnea, Other Respiratory Problems/Disorders GI History: Reports: Hx Gastroesophageal Reflux Disease, Hx Gastrointestinal Bleed, Hx Ulcer, Other GI Disorders - Gastroparesis Denies: Hx Cirrhosis, Hx Crohn's Disease, Hx Diverticulosis, Hx Gall Bladder Disease, Hx Hiatal Hernia, Hx Irritable Bowel, Hx Jaundice, Hx Obstructive Bowel , Hx Ileostomy, Hx Pyloric Stenosis History: Reports: Other Problems/Disorders - chronic kidney disease Denies: Hx Kidney Stones, Hx Renal Disease Musculoskeletal History: Denies: Hx Arthritis, Hx Osteoporosis Sensory History: Reports: Hx Vision Problem Denies: Hx Cataracts, Hx Contacts or Glasses, Hx Eye Injury, Hx Eye Prosthesis, Hx Glaucoma, Hx Macular Degeneration, Hx Deafness, Hx Hearing Aid, Hx Hearing Problem, Other Sensory Impairments Opthamlomology History: Reports: Hx Vision Problem Denies: Hx Cataracts, Hx Contacts or Glasses, Hx Eye Injury, Hx Eye Prosthesis, Hx Glaucoma, Hx Macular Degeneration, Other Sensory Impairments Neurological History: Denies: Hx Dementia, Hx Headaches, Hx Seizures, Hx Transient Ischemic Attacks (TIA) Psychiatric History: Reports: Hx Anxiety, Hx Depression, Hx Inpatient Treatment , Hx Community Mental Health Tx, Hx Bipolar Disorder, Hx Substance Abuse Denies: Hx Eating Disorder, Hx Panic Disorder, Hx Post Traumatic Stress Disorder, Hx Schizophrenia, Hx of Violent Episodes Against Others, Other Psychiatric Issues/Disorders - Cancer History Hx Chemotherapy: No Hx Radiation Therapy: No - Surgical History Hx Anesthesia Reactions: No - Immunization History Date of Tetanus Vaccine: utd Date of Influenza Vaccine: no Infectious Disease History: No Infectious Disease History: Denies: Hx Hepatitis, Hx Human Immunodeficiency Virus (HIV), Hx of Known/ Suspected MRSA, Hx Shingles, Hx Tuberculosis, History Other Infectious Disease, Traveled Outside the [place] in Last 30 Days - Family History Known Family History: Negative: Cardiac Disease, Hypertension, Diabetes Family History: NON CONTRIBUTORY - Social History Alcohol Use: None Hx Substance Use: Yes Substance Use Type: Reports: Marijuana Substance Use Comment - Amount & Last Used: daily Hx Tobacco Use: Yes Smoking Status (MU): Light Every Day Tobacco Smoker Type: Cigarettes Amount Used/How Often: 1/2PPD a day and has smoked in the last 30 days Length of Time of Smoking/Using Tobacco: 20 years Have You Smoked in the Last Year: Yes Review of Systems Negative: Fever Positive: Abdominal Pain - epigastric All Other Systems Reviewed And Are Negative: Yes Physical Exam - Summary Physical Exam Summary: Appearance: The patient is well-nourished in no acute distress and in no acute pain. Skin: The skin is warm and dry and skin color reflects adequate perfusion. HEENT: The head is normocephalic and atraumatic. The pupils are equal and reactive. The conjunctivae are clear and without drainage. Nares are patent and without drainage. Mouth reveals moist mucous membranes and the throat is without erythema and exudate. The external ears are intact. The ear canals are patent and without drainage. The tympanic membranes are intact. Neck: the neck is supple with full range of motion and non-tender. There are no carotid bruits. There is no neck vein distension. Respiratory: Chest is non-tender. Lungs are clear to auscultation and breath sounds are symmetrical and equal. Cardiovascular: Heart is regular rate and rhythm. There is no murmur or rub auscultated. There is no peripheral edema and pulses are symmetrical and equal. Abdomen: The abdomen is soft and tender in the epigastrium. There are normal bowel sounds heard in all four quadrants and there is no organomegaly palpated. Musculoskeletal: There is no back tenderness noted. Extremities are non-tender with full range of motion. There is good capillary refill. There is no peripheral edema or calf tenderness elicited. Neurological: Patient is alert and oriented to person, place and time. The patient has symmetrical motor strength in all four extremities. Cranial nerves are grossly intact. Deep tendon reflexes are symmetrical and equal in all four extremities. Psychiatric: The patient has an appropriate affect and does not exhibit any anxiety or depression. Triage Information Reviewed: Yes Vital Signs On Initial Exam: Initial Vitals Temp Pulse Resp BP Pulse Ox 99 F 139 20 120/79 100 07/03/17 14:23 07/03/17 14:23 07/03/17 14:23 07/03/17 14:23 07/03/17 14:23 Vital Signs Reviewed: Yes Diagnostics - Vital Signs Vital Signs Temp Pulse Resp BP Pulse Ox 07/03/17 16:32 98.2 F 125 16 172/116 100 07/03/17 14:23 99 F 139 20 120/79 100 - Laboratory Lab Results: Lab Results 07/03/17 07/03/17 07/03/17 Range/Units 18:45 18:55 18:55 WBC 28.3 H (3.5-10.8) 10^3/ul RBC 3.85 L (4.0-5.4) 10^6/ul Hgb 11.0 L (14.0-18.0) g/dl Hct 33 L (42-52) % MCV 85 (80-94) fL MCH 29 (27-31) pg MCHC 34 (31-36) g/dl RDW 13 (10.5-15) % Plt Count 548 H (150-450) 10^3/ul MPV 8.2 (7.4-10.4) um3 Neut % (Auto) 94.5 H (38-83) % Lymph % (Auto) 2.7 L (25-47) % [place] % (Auto) 2.4 (0-7) % Eos % (Auto) 0 (0-6) % Baso % (Auto) 0.4 (0-2) % Absolute Neuts (auto) 26.7 H (1.5-7.7) 10^3/ul Absolute Lymphs (auto) 0.8 L (1.0-4.8) 10^3/ul Absolute Monos (auto) 0.7 (0-0.8) 10^3/ul Absolute Eos (auto) 0 (0-0.6) 10^3/ul Absolute Basos (auto) 0.1 (0-0.2) 10^3/ul Absolute Nucleated RBC 0 10^3/ul Nucleated RBC % 0 Sodium 126 L (139-145) mmol/L Potassium 4.1 (3.5-5.0) mmol/L Chloride 89 L (101-111) mmol/L Carbon Dioxide 21 L (22-32) mmol/L Anion Gap 16 H (2-11) mmol/L BUN 34 H (6-24) mg/dL Creatinine 2.65 H (0.67-1.17) mg/dL Est GFR ( Amer) 35.3 (>60) Est GFR (Non-Af Amer) 27.5 (>60) BUN/Creatinine Ratio 12.8 (8-20) Glucose 550 H* (70-100) mg/dL Lactic Acid 2.2 H* (0.5-2.0) mmol/L Calcium 10.3 (8.6-10.3) mg/dL Total Bilirubin 0.40 (0.2-1.0) mg/dL AST 24 (13-39) U/L ALT 54 H (7-52) U/L Alkaline Phosphatase 142 H (34-104) U/L C-Reactive Protein 4.40 (< 5.00) mg/L Total Protein 8.0 (6.4-8.9) g/dL Albumin 4.5 (3.2-5.2) g/dL Globulin 3.5 (2-4) g/dL Albumin/Globulin Ratio 1.3 (1-3) Lipase 14 (11.0-82.0) U/L Result Diagrams: 07/03/17 18:55 07/03/17 18:45 Lab Statement: Any lab studies that have been ordered have been reviewed, and results considered in the medical decision making process. Abdominal Pain Fem Course/Dx - Course Course Of Treatment: Mr. Simmons is an unfortunate gentleman who has been seen many times in the ED for epigastric pain. He has known erosive gastritis and gastroparesis. He started with the dsame pain yesterday which has continued to worsen. He was found to be in ketoacidosis and IV fluids were continued and an insulin drip was started. He is being admitted to the hospitalist service. - Diagnoses Provider Diagnoses: DKA (diabetic ketoacidoses) - Critical Care Time Critical Care Time: 30-74 min Discharge - Sign-Out/Discharge Documenting (check all that apply): Discharge - Discharge Plan Condition: Stable Disposition: ADMITTED TO [facility] Referrals: No Primary Care Phys,NOPCP [Primary Care Provider] - - Billing Disposition and Condition Condition: STABLE Disposition: [facility] [place], [place] The documentation as recorded by the Jamar deutsch Natalie accurately reflects the service I personally performed and the decisions made by , Naveed Chao MD.
[2017-07-03] MEDS ORDERED: Ondansetron INJ* 2 MG/ML VIAL IV PRN (20:38)
[2017-07-03] MEDS ORDERED: Morphine INJ* 2 MG/ML 1 ML CARPUJECT IV PRN (20:38)
[2017-07-03] MEDS ORDERED: Senna TAB PO PRN (20:38)
[2017-07-03] MEDS ORDERED: Acetaminophen TAB* 325 MG PO PRN (20:38)
[2017-07-03] MEDS ORDERED: Al Hydrox/Mg Hydrox/Simet LIQ* 30 ML UDC PO PRN (20:38)
[2017-07-03 20:41] LABS: Urine Appearance Clear; Urine Blood Negative (Negative); Urine Color Straw; Urine Ketones 1+ (Negative); Urine Protein 3+(>=500 mg/dL) (Negative); Urine Specific Gravity 1.022 (1.010-1.030); Urine Urobilinogen Negative (Negative)
[2017-07-03] MEDS ORDERED: Omeprazole CAP* 20 MG PO ONE ×2 (20:44→21:12)
[2017-07-03] MEDS ORDERED: NS 0.9% 1000 ML* 1,000 ML IV SCH (21:00)
--- NOTE | 2017-07-03 21:54 | RAD ---
INDICATION: Elevated liver function tests and abdominal pain. COMPARISON: Comparison is made with a prior right upper quadrant ultrasound from September 24, 2016. TECHNIQUE: Multiple real-time images of the right upper quadrant were obtained. FINDINGS: The gallbladder appear normal. No gallbladder wall thickening or pericholecystic fluid is present. No intra or extrahepatic ductal distention is present. The common bile duct measured 0.3 cm in diameter. The liver is normal in size without significant focal abnormality. The pancreas is partially obscured by overlying bowel gas. The right kidney is normal in size measuring 11.9 x 4.9 x 5.4 cm. There is mild right caliectasis. IMPRESSION: 1. NORMAL EXAMINATION OF THE GALLBLADDER AND LIVER. 2. MILD RIGHT CALIECTASIS.
--- NOTE | 2017-07-03 23:49 | HP ---
CC: Dr. De Paz * HISTORY AND PHYSICAL: DATE OF ADMISSION: 07/03/17 TIME OF EVALUATION: 1999 PRIMARY CARE PHYSICIAN: Dr. De Paz. CHIEF COMPLAINT: Abdominal pain. HISTORY OF PRESENT ILLNESS: This is a 37-year-old male with a past medical history of type 1 diabetes, celiac disease, and gastroparesis, who presented to the emergency room with abdominal pain. The patient states he feels that he likely ate gluten Saturday night on 07/01/17, began to have nausea, vomiting, and abdominal pain, started on 07/02/17 at 4 a.m. The abdominal pain has been persistent, midabdominal epigastric region. He is no longer having any nausea or vomiting. He states he checked his blood sugar this morning at 11 a.m. It was over 500. He took 10 units and he has not checked since then. He states he has not really had anything to eat or drink other than a bite of a banana since 2 nights ago. The patient denies any diarrhea. He states normally it is constipation. No urinary symptoms except he states sometime it is hard for him to go. He denies any fevers. No chills. No chest pain, no shortness of breath , no rash, no headache. He states he is compliant with his insulin, otherwise. Remaining review of systems is negative. In the emergency room, the patient had labs. He was given 2 L of normal saline, Zofran, Dilaudid and was referred to the hospitalist service for further evaluation. PAST MEDICAL HISTORY: 1. Type 1 diabetes. 2. Gastroparesis. 3. Depression. 4. PTSD. 5. Celiac disease. 6. History of esophagitis. 7. Bipolar affective disorder. 8. History of tobacco use and marijuana use. 9. History of right nephrolithiasis. 10. 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 MEDICATIONS: 1. Seroquel 200 mg p.o. at bedtime. 2. He states he is on a lispro sliding scale. 3. Basaglar insulin 24 units in the morning. 4. Reglan 10 mg p.o. b.i.d. ALLERGIES: GLUTEN. FAMILY HISTORY: No history of diabetes. His mother has emphysema. He is estranged from his father. SOCIAL HISTORY: The patient lives with his in [place]. He states he is on disability. She smokes about a pack per week. He states he uses marijuana few times a week. No alcohol use. His healthcare proxy he states is his mother, Verenice Andrew. CODE STATUS: He is full code. REVIEW OF SYSTEMS: A 14-point review of systems as mentioned in the HPI, otherwise negative. He also mentioned that he has lost some weight. PHYSICAL EXAMINATION GENERAL: Mildly ill-appearing, in no acute distress. VITAL SIGNS: Temp 98.2, pulse rate 115, respiratory rate 30, oxygen saturation 100% on room air, and blood pressure 178/120. HEENT: Head: Normocephalic. Pupils equal and reactive, anicteric. Oropharynx : Mucous membranes are dry. NECK: Supple. No lymphadenopathy. RESPIRATORY: Diminished breath sounds. No wheezes, rhonchi, or rales. CARDIAC: Tachycardia, soft systolic murmur heard throughout. ABDOMEN: Hypoactive bowel sounds, soft, no distention. He has epigastric tenderness. No rebound or guarding. EXTREMITIES: No clubbing, cyanosis, or edema. +1 DP. NEUROLOGIC: Alert and oriented x3. No gross focal neurologic deficits. LABORATORY DATA: White count 28.3, hemoglobin 11.1, hematocrit 33, platelets 548. Sodium 126, potassium 4.1, chloride 89, bicarb 21, anion gap 16, BUN 34, creatinine is 2.65, glucose 550. Lactic acid 2.2. AST is 54, ALT is 142. UA is +3 protein, +1 ketones, +3 glucose. ASSESSMENT AND PLAN: This is a 37-year-old male with history of type 1 diabetes , esophagitis and gastroparesis, who presents to the emergency room with abdominal pain after states eating gluten. 1. Abdominal pain. Assessment: I suspect his abdominal pain is multifactorial , mainly contributed by his mild diabetic ketoacidosis. I suspect also that he has significant esophagitis. He is not on the omeprazole. He states he is in the midst of switching primary care physicians and planning to go to Dr. De Paz and state he was not able to get his prescription for omeprazole from his admission back in April. He denies any black stools or bright red blood per rectum. Plan: We will admit him to the ICU for his diabetic ketoacidosis, IV fluids, and insulin drip. Check a hemoglobin A1c. We will also start him back on omeprazole 40 mg p.o. b.i.d. If his abdominal pain does not subside despite treating his diabetic ketoacidosis and starting omeprazole, consider further evaluation. He just had an EGD done back in April that showed ulcerative esophagitis. 2. Elevated LFTs. This is new for him. This could also be contributing to his abdominal discomfort, though it is mostly in his epigastric region. We will check an ultrasound and an acute hepatic workup panel. CHRONIC MEDICAL PROBLEMS: 1. Chronic kidney disease. His creatinine is slightly bumped from his baseline likely in the setting of prerenal azotemia. It is likely due from his poorly controlled diabetes. We will continue fluids. Repeat his labs and renally dose his medications. 2. Diabetes. As above. 3. Gastroparesis. Continue his Reglan at 10 mg b.i.d. Consider increasing it if he says symptoms related to early satiety and nausea, which he does not currently. 4. History of bipolar and depression. Continue Seroquel at bedtime. 5. FEN. N.p.o. with ice chips until his anion gap acidosis is improved. 6. DVT prophylaxis. The patient scores a zero. Place him on SCDs. 7. Code status: Full code. PATIENT TIME: Greater than 60 minutes were spent doing the history and physical , more than half the time in direct patient contact. [id number]/CPS #: [id number] DESHAUN
[2017-07-03 23:51] LABS: EGFR Non-African American 32.2 (>60)
[2017-07-04] MEDS: oxyCODONE/Acetamin 5/325 MG* TAB PO PRN ×5 (00:22→22:37)
[2017-07-04] MEDS ORDERED: Dextrose 50% Syringe 50 ML* 25 GM/50 ML SYRINGE ONE (00:38)
[2017-07-04] MEDS ORDERED: Potassium Chlor TAB* 20 MEQ TAB.ER PO ONE (01:14)
[2017-07-04] MEDS ORDERED: HYDROmorphone INJ* 2 MG/ML CARPUJECT SYRINGE IV SLOW PU PRN (01:14)
[2017-07-04] MEDS ORDERED: NS 0.9% 1000 ML* 1,000 ML IV SCH (01:15)
[2017-07-04] MEDS ORDERED: Dextrose 50% Syringe 50 ML* 25 GM/50 ML SYRINGE IV PUSH PRN (04:42)
[2017-07-04] MEDS ORDERED: Omeprazole CAP* 20 MG PO SCH ×2 (06:00→09:00)
[2017-07-04 06:50] LABS: Hematocrit 27 % (42-52); Hemoglobin 9.1 g/dl (14.0-18.0); Mean Corpuscular HGB Conc 34 g/dl (31-36); Mean Corpuscular Hemoglobin 29 pg (27-31); Mean Corpuscular Volume 85 fL (80-94); Mean Platelet Volume 7.4 um3 (7.4-10.4); Platelet Count 427 10^3/ul (150-450); Red Blood Count 3.15 10^6/ul (4.0-5.4); Red Cell Distribution Width 13 % (10.5-15)
[2017-07-04 07:02] LABS: ABS Basophils 0.1 10^3/ul (0-0.2); ABS Eosinophils 0.1 10^3/ul (0-0.6); ABS Lymphocytes 1.9 10^3/ul (1.0-4.8); ABS Monocytes 1.4 10^3/ul (0-0.8); ABS Neutrophils 20.6 10^3/ul (1.5-7.7); ABS Nucleated RBC 0 10^3/ul; EGFR Non-African American 33.9 (>60); Eosinophil % 0.3 % (0-6); Lymphocyte % 7.9 % (25-47); Nucleated Red Blood Cells % 0
[2017-07-04] MEDS: Omeprazole CAP* 20 MG PO SCH ×2 (09:16→20:47)
[2017-07-04] MEDS: Metoclopramide TAB* 10 MG PO SCH ×3 (09:16→20:47)
[2017-07-04] MEDS: Insulin LISPRO* 1 UNITS UNIT SUBCUT SCH ×6 (09:17→18:34)
[2017-07-04] MEDS: Insulin GLARGINE(*) 1 UNITS UNIT SUBCUT SCH (09:17)
[2017-07-04] MEDS ORDERED: Sucralfate TAB* 1 GM PO ONE (09:33)
[2017-07-04] MEDS: HYDROmorphone INJ* 2 MG/ML CARPUJECT SYRINGE IV SLOW PU PRN ×3 (09:54→20:21)
--- NOTE | 2017-07-04 11:11 | PN ---
Subjective Date of Service: 07/04/17 Interval History: Pt c/o abd pain -the same one that he always gets when he accidentally ingests gluten. denies recent vomiting Objective Active Medications: Acetaminophen (Tylenol Tab*) 650 mg PO Q4H PRN PRN Reason: FEVER/PAIN Al Hydrox/Mg Hydrox/Simethicone (Maalox Plus*) 30 ml PO Q6H PRN PRN Reason: INDIGESTION Dextrose (D50w Syringe 50 Ml*) 12.5 gm IV PUSH .FOR FS < 60 - SS PRN PRN Reason: FS < 60 Docusate Sodium (Colace Cap*) 100 mg PO BID PRN PRN Reason: CONSTIPATION Hydromorphone HCl (Dilaudid Inj*) 0.5 mg IV SLOW PU Q4H PRN PRN Reason: PAIN Last Admin: 07/04/17 09:54 Dose: 0.5 mg Insulin Human Regular (Insulin Regular Ivpb) 100 units in 100 mls @ 5.897 mls/ hr IVPB PER RATE ONE PRN Reason: 0.1 UNITS/KG/HR Stop: 07/04/17 12:48 Last Admin: 07/03/17 21:11 Dose: 5.897 mls/hr Sodium Chloride (Ns 0.9% 1000 Ml*) 1,000 mls @ 150 mls/hr IV PER RATE [facility] Last Admin: 07/04/17 00:35 Dose: 150 mls/hr Insulin Glargine (Lantus(*)) 24 units SUBCUT [facility] Last Admin: 07/04/17 09:17 Dose: 24 units Insulin Human Lispro (Humalog*) 0 units SUBCUT [facility] PRN Reason: Protocol Last Admin: 07/04/17 09:59 Dose: Not Given Insulin Human Lispro (Humalog*) 0 units SUBCUT [facility] PRN Reason: Protocol Last Admin: 07/04/17 09:17 Dose: 2 units Metoclopramide HCl (Reglan Tab*) 10 mg PO BID [facility] Last Admin: 07/04/17 09:16 Dose: 10 mg Omeprazole (Prilosec Cap*) 40 mg PO BID [facility] Last Admin: 07/04/17 09:16 Dose: 40 mg Ondansetron HCl (Zofran Inj*) 4 mg IV Q4H PRN PRN Reason: NAUSEA/VOMITING Oxycodone/Acetaminophen (Percocet 5/325 Tab*) 1 tab PO Q4H PRN PRN Reason: Pain Last Admin: 07/04/17 08:05 Dose: 1 tab Quetiapine Fumarate (Seroquel Tab*) 200 mg PO BEDTIME [facility] Last Admin: 07/04/17 00:00 Dose: 200 mg Senna (Senokot Tab*) 1 tab PO BID PRN PRN Reason: CONSTIPATION Sucralfate (Carafate*) 1 gm PO AC [facility] Vital Signs - 8 hr 07/04/17 07/04/17 07/04/17 04:00 04:01 04:54 Temperature 99.0 F Pulse Rate 110 110 Respiratory 12 14 28 Rate Blood Pressure 124/87 (mmHg) O2 Sat by Pulse 96 96 Oximetry 07/04/17 07/04/17 07/04/17 05:00 05:01 06:00 Temperature Pulse Rate 107 106 102 Respiratory 14 13 16 Rate Blood Pressure 147/85 132/88 (mmHg) O2 Sat by Pulse 94 94 96 Oximetry 07/04/17 07/04/17 07/04/17 06:01 07:00 07:01 Temperature Pulse Rate 103 102 106 Respiratory 16 12 9 Rate Blood Pressure 140/93 (mmHg) O2 Sat by Pulse 96 96 97 Oximetry 07/04/17 07/04/17 07/04/17 08:00 08:01 08:05 Temperature Pulse Rate 125 122 Respiratory 18 20 16 Rate Blood Pressure 172/111 (mmHg) O2 Sat by Pulse 98 Oximetry 07/04/17 07/04/17 07/04/17 09:00 09:54 10:00 Temperature Pulse Rate 104 105 Respiratory 16 14 13 Rate Blood Pressure 157/94 149/97 (mmHg) O2 Sat by Pulse 95 95 Oximetry 07/04/17 10:01 Temperature Pulse Rate 105 Respiratory 12 Rate Blood Pressure (mmHg) O2 Sat by Pulse 95 Oximetry Oxygen Devices in Use Now: None Appearance: 37 yo M in nAD, AAOx3 Eyes: No Scleral Icterus, PERRLA Ears/Nose/Mouth/Throat: NL Teeth, Lips, Gums, Mucous Membranes Moist Neck: NL Appearance and Movements; NL JVP, Trachea Midline Respiratory: Symmetrical Chest Expansion and Respiratory Effort, Clear to Auscultation Cardiovascular: NL Sounds; No Murmurs; No JVD, RRR Abdominal: NL Sounds; No Tenderness; No Distention, - - abd exam not consitent, initial voluntary guarding,then soft, mildly tender to R side of umbilicus, no rebound, BS+ Lymphatic: No Cervical Adenopathy Extremities: No Edema Skin: No Rash or Ulcers, No Nodules or Sclerosis Neurological: Alert and Oriented x 3, NL Muscle Strength and Tone Result Diagrams: 07/04/17 06:31 07/04/17 06:31 Additional Lab and Data: Lab Results 07/03/17 07/03/17 07/03/17 Range/Units 18:45 18:55 18:55 WBC 28.3 H (3.5-10.8) 10^3/ul RBC 3.85 L (4.0-5.4) 10^6/ul Hgb 11.0 L (14.0-18.0) g/dl Hct 33 L (42-52) % MCV 85 (80-94) fL MCH 29 (27-31) pg MCHC 34 (31-36) g/dl RDW 13 (10.5-15) % Plt Count 548 H (150-450) 10^3/ul MPV 8.2 (7.4-10.4) um3 Neut % (Auto) 94.5 H (38-83) % Lymph % (Auto) 2.7 L (25-47) % [place] % (Auto) 2.4 (0-7) % Eos % (Auto) 0 (0-6) % Baso % (Auto) 0.4 (0-2) % Absolute Neuts (auto) 26.7 H (1.5-7.7) 10^3/ul Absolute Lymphs (auto) 0.8 L (1.0-4.8) 10^3/ul Absolute Monos (auto) 0.7 (0-0.8) 10^3/ul Absolute Eos (auto) 0 (0-0.6) 10^3/ul Absolute Basos (auto) 0.1 (0-0.2) 10^3/ul Absolute Nucleated RBC 0 10^3/ul Nucleated RBC % 0 Sodium 126 L (139-145) mmol/L Potassium 4.1 (3.5-5.0) mmol/L Chloride 89 L (101-111) mmol/L Carbon Dioxide 21 L (22-32) mmol/L Anion Gap 16 H (2-11) mmol/L BUN 34 H (6-24) mg/dL Creatinine 2.65 H (0.67-1.17) mg/dL Est GFR ( Amer) 35.3 (>60) Est GFR (Non-Af Amer) 27.5 (>60) BUN/Creatinine Ratio 12.8 (8-20) Glucose 550 H* (70-100) mg/dL Lactic Acid 2.2 H* (0.5-2.0) mmol/L Calcium 10.3 (8.6-10.3) mg/dL Total Bilirubin 0.40 (0.2-1.0) mg/dL AST 24 (13-39) U/L ALT 54 H (7-52) U/L Alkaline Phosphatase 142 H (34-104) U/L C-Reactive Protein 4.40 (< 5.00) mg/L Total Protein 8.0 (6.4-8.9) g/dL Albumin 4.5 (3.2-5.2) g/dL Globulin 3.5 (2-4) g/dL Albumin/Globulin Ratio 1.3 (1-3) Lipase 14 (11.0-82.0) U/L Assess/Plan/Problems-Billing Assessment: This is a 37 year old male with IDDM, diabetic gastroparesis and Celiac disease presents with intractable abdominal pain and DKA - Patient Problems (1) DKA (diabetic ketoacidoses) Comment: Blood CO2 and anion gap consistent with mild DKA that has resolved. Back on Lantus and ISS (2) Intractable abdominal pain Comment: Pt states that he gets this pain "all the time" when he eats gluten . Stated he has celiac disease, although duodenal bx was negative in 04/2017. Not interested in repeat CT. will cont Carafate and monitor (3) Esophagitis Comment: Had endoscopy 04/2017 k with espohagitis no bleeding Continue carafate and PPI (4) Diabetic gastroparesis Comment: Cont Reglan. Abd pain likley gastroparesis related (5) Chronic kidney disease Comment: Due to DM1 Now at his baseline creatinine. (6) Leukocytosis Comment: possibly reactive due to DKA, so far w/up unremarkable. cont to observe (7) DVT prophylaxis Comment: Low risk - encourage ambulation Status and Disposition: inpatient
[2017-07-04] MEDS: Sucralfate TAB* 1 GM PO SCH ×2 (11:44→17:45)
[2017-07-04] MEDS ORDERED: hydrALAZINE IV* 20 MG/ML VIAL IV SLOW PU PRN (18:15)
[2017-07-04] MEDS: amLODIPine TAB* 5 MG PO SCH (18:35)
[2017-07-04] MEDS: QUEtiapine TAB* 100 MG PO SCH ×2 (20:47)
[2017-07-04] MEDS ORDERED: NS 0.9% 1000 ML* 1,000 ML IV ONE (23:00)
[2017-07-05] MEDS: HYDROmorphone INJ* 2 MG/ML CARPUJECT SYRINGE IV SLOW PU PRN ×5 (00:25→21:02)
[2017-07-05] MEDS: oxyCODONE/Acetamin 5/325 MG* TAB PO PRN ×4 (03:01→17:52)
[2017-07-05 06:02] LABS: ABS Basophils 0 10^3/ul (0-0.2); ABS Eosinophils 0.1 10^3/ul (0-0.6); ABS Lymphocytes 1.3 10^3/ul (1.0-4.8); ABS Monocytes 0.7 10^3/ul (0-0.8); ABS Neutrophils 13.7 10^3/ul (1.5-7.7); ABS Nucleated RBC 0 10^3/ul; Eosinophil % 0.7 % (0-6); Hematocrit 29 % (42-52); Hemoglobin 9.8 g/dl (14.0-18.0); Lymphocyte % 8.1 % (25-47); Mean Corpuscular HGB Conc 34 g/dl (31-36); Mean Corpuscular Hemoglobin 29 pg (27-31); Mean Corpuscular Volume 85 fL (80-94); Mean Platelet Volume 7.4 um3 (7.4-10.4); Nucleated Red Blood Cells % 0.1; Platelet Count 433 10^3/ul (150-450); Red Cell Distribution Width 13 % (10.5-15); White Blood Count 15.8 10^3/ul (3.5-10.8)
[2017-07-05 06:18] LABS: EGFR Non-African American 39.1 (>60)
[2017-07-05] MEDS: Insulin LISPRO* 1 UNITS UNIT SUBCUT SCH ×6 (08:35→17:53)
[2017-07-05] MEDS: Insulin GLARGINE(*) 1 UNITS UNIT SUBCUT SCH (08:35)
[2017-07-05] MEDS: amLODIPine TAB* 5 MG PO SCH (08:37)
[2017-07-05] MEDS: Sucralfate TAB* 1 GM PO SCH ×3 (08:38→17:52)
[2017-07-05] MEDS: Omeprazole CAP* 20 MG PO SCH ×2 (08:38→21:01)
[2017-07-05] MEDS: Metoclopramide TAB* 10 MG PO SCH ×2 (08:38→21:01)
--- NOTE | 2017-07-05 14:11 | PN ---
Subjective Date of Service: 07/05/17 Interval History: Pt is feeling poorly still but better than yesterday. He thinks his abdominal pain may be from inadvertently ingesting gluten prior to his admission. He states he will go weeks to months at home without pain but sometimes the pain will just start randomly. Objective Active Medications: Acetaminophen (Tylenol Tab*) 650 mg PO Q4H PRN PRN Reason: FEVER/PAIN Al Hydrox/Mg Hydrox/Simethicone (Maalox Plus*) 30 ml PO Q6H PRN PRN Reason: INDIGESTION Amlodipine Besylate (Norvasc Tab*) 5 mg PO DAILY [facility] [place] Last Admin: 07/05/17 08:37 Dose: 5 mg Dextrose (D50w Syringe 50 Ml*) 12.5 gm IV PUSH .FOR FS < 60 - SS PRN PRN Reason: FS < 60 Docusate Sodium (Colace Cap*) 100 mg PO BID PRN PRN Reason: CONSTIPATION Hydralazine HCl (Apresoline Iv*) 5 mg IV SLOW PU Q6H PRN PRN Reason: BLOOD PRESSURE Last Admin: 07/04/17 18:35 Dose: 5 mg Hydromorphone HCl (Dilaudid Inj*) 0.5 mg IV SLOW PU Q4H PRN PRN Reason: PAIN Last Admin: 07/05/17 09:29 Dose: 0.5 mg Lactated Ringer's (Lactated Ringers 1000 Ml Bag*) 1,000 mls @ 75 mls/hr IV PER RATE [facility] [place] Last Admin: 07/05/17 03:02 Dose: 75 mls/hr Insulin Glargine (Lantus(*)) 27 units SUBCUT [facility] Insulin Human Lispro (Humalog*) 0 units SUBCUT [facility] PRN Reason: Protocol Last Admin: 07/05/17 12:58 Dose: Not Given Insulin Human Lispro (Humalog*) 0 units SUBCUT [facility] PRN Reason: Protocol Last Admin: 07/05/17 12:40 Dose: 1 units Metoclopramide HCl (Reglan Tab*) 10 mg PO BID [facility] [place] Last Admin: 07/05/17 08:38 Dose: 10 mg Omeprazole (Prilosec Cap*) 40 mg PO BID [facility] [place] Last Admin: 07/05/17 08:38 Dose: 40 mg Ondansetron HCl (Zofran Inj*) 4 mg IV Q4H PRN PRN Reason: NAUSEA/VOMITING Oxycodone/Acetaminophen (Percocet 5/325 Tab*) 1 tab PO Q4H PRN PRN Reason: Pain Last Admin: 07/05/17 12:52 Dose: 1 tab Quetiapine Fumarate (Seroquel Tab*) 200 mg PO BEDTIME [facility] Last Admin: 07/04/17 20:47 Dose: 200 mg Senna (Senokot Tab*) 1 tab PO BID PRN PRN Reason: CONSTIPATION Sucralfate (Carafate*) 1 gm PO AC [facility] Last Admin: 07/05/17 12:40 Dose: 1 gm Vital Signs - 8 hr 07/05/17 07/05/17 07/05/17 06:11 07:29 07:40 Temperature 98.1 F Pulse Rate 119 Respiratory 18 18 20 Rate Blood Pressure 156/99 (mmHg) O2 Sat by Pulse 100 Oximetry 07/05/17 07/05/17 07/05/17 09:29 10:30 11:35 Temperature 98.1 F Pulse Rate 108 Respiratory 15 18 20 Rate Blood Pressure 134/81 (mmHg) O2 Sat by Pulse 100 Oximetry 07/05/17 12:52 Temperature Pulse Rate Respiratory 20 Rate Blood Pressure (mmHg) O2 Sat by Pulse Oximetry Oxygen Devices in Use Now: None Appearance: Young male lying in bed, NAD Eyes: No Scleral Icterus Ears/Nose/Mouth/Throat: Mucous Membranes Moist Respiratory: Symmetrical Chest Expansion and Respiratory Effort, Clear to Auscultation Cardiovascular: NL Sounds; No Murmurs; No JVD, No Edema, - - tachycardic but regular Abdominal: - - BS+ soft, ND, mildly tender to palpation in the epigastrum to RUQ Extremities: No Clubbing, Cyanosis Skin: No Nodules or Sclerosis Neurological: Alert and Oriented x 3 Result Diagrams: 07/05/17 05:32 07/05/17 05:32 Additional Lab and Data: Lab Results 07/03/17 07/03/17 07/03/17 Range/Units 18:45 18:55 18:55 WBC 28.3 H (3.5-10.8) 10^3/ul RBC 3.85 L (4.0-5.4) 10^6/ul Hgb 11.0 L (14.0-18.0) g/dl Hct 33 L (42-52) % MCV 85 (80-94) fL MCH 29 (27-31) pg MCHC 34 (31-36) g/dl RDW 13 (10.5-15) % Plt Count 548 H (150-450) 10^3/ul MPV 8.2 (7.4-10.4) um3 Neut % (Auto) 94.5 H (38-83) % Lymph % (Auto) 2.7 L (25-47) % [place] % (Auto) 2.4 (0-7) % Eos % (Auto) 0 (0-6) % Baso % (Auto) 0.4 (0-2) % Absolute Neuts (auto) 26.7 H (1.5-7.7) 10^3/ul Absolute Lymphs (auto) 0.8 L (1.0-4.8) 10^3/ul Absolute Monos (auto) 0.7 (0-0.8) 10^3/ul Absolute Eos (auto) 0 (0-0.6) 10^3/ul Absolute Basos (auto) 0.1 (0-0.2) 10^3/ul Absolute Nucleated RBC 0 10^3/ul Nucleated RBC % 0 Sodium 126 L (139-145) mmol/L Potassium 4.1 (3.5-5.0) mmol/L Chloride 89 L (101-111) mmol/L Carbon Dioxide 21 L (22-32) mmol/L Anion Gap 16 H (2-11) mmol/L BUN 34 H (6-24) mg/dL Creatinine 2.65 H (0.67-1.17) mg/dL Est GFR ( Amer) 35.3 (>60) Est GFR (Non-Af Amer) 27.5 (>60) BUN/Creatinine Ratio 12.8 (8-20) Glucose 550 H* (70-100) mg/dL Lactic Acid 2.2 H* (0.5-2.0) mmol/L Calcium 10.3 (8.6-10.3) mg/dL Total Bilirubin 0.40 (0.2-1.0) mg/dL AST 24 (13-39) U/L ALT 54 H (7-52) U/L Alkaline Phosphatase 142 H (34-104) U/L C-Reactive Protein 4.40 (< 5.00) mg/L Total Protein 8.0 (6.4-8.9) g/dL Albumin 4.5 (3.2-5.2) g/dL Globulin 3.5 (2-4) g/dL Albumin/Globulin Ratio 1.3 (1-3) Lipase 14 (11.0-82.0) U/L Assess/Plan/Problems-Billing Mr Simmons is a 37 year old male with type I DM, diabetic gastroparesis and celiac disease presents with intractable abdominal pain and DKA. - Patient Problems (1) Leukocytosis Current Visit: Yes Status: Acute Code(s): D72.829 - ELEVATED WHITE BLOOD CELL COUNT, UNSPECIFIED SNOMED Code(s): 370697901 Comment: WBC count has improved but not normalized. Will get follow up CBC. (2) Abdominal pain Current Visit: Yes Status: Acute Code(s): R10.9 - UNSPECIFIED ABDOMINAL PAIN SNOMED Code(s): 55109736 Comment: Pt continues to have severe abdominal pain. He has only ate a bowl of jello. He is interested in trying mashed potatoes at dinner. ? secondary to gastroparesis vs celiac disease vs other. (3) DKA (diabetic ketoacidoses) Current Visit: Yes Status: Acute Code(s): E13.10 - OTH DIABETES MELLITUS WITH KETOACIDOSIS WITHOUT COMA SNOMED Code(s): 267605544 Comment: Resolved. Increase lantus for better BS control. (4) Diabetic gastroparesis Current Visit: Yes Status: Acute Code(s): E11.43 - TYPE 2 DIABETES W DIABETIC AUTONOMIC (POLY)NEUROPATHY; K31.84 - GASTROPARESIS SNOMED Code(s): 097418552 Comment: Continue Reglan. Advance diet and monitor symptoms. (5) DVT prophylaxis Current Visit: Yes Status: Acute Code(s): AKJ1324 - SNOMED Code(s): 455746858 Comment: ambulation (6) Full code status Current Visit: Yes Status: Acute Onset Date: 06/14/14 Code(s): Z78.9 - OTHER SPECIFIED HEALTH STATUS SNOMED Code(s): 267120603 Status and Disposition: .
[2017-07-05] MEDS: QUEtiapine TAB* 100 MG PO SCH (21:01)
[2017-07-06] MEDS: HYDROmorphone INJ* 2 MG/ML CARPUJECT SYRINGE IV SLOW PU PRN ×4 (05:05→21:12)
[2017-07-06 07:03] LABS: Hematocrit 31 % (42-52); Hemoglobin 10.6 g/dl (14.0-18.0); Mean Corpuscular HGB Conc 34 g/dl (31-36); Mean Corpuscular Hemoglobin 29 pg (27-31); Mean Corpuscular Volume 84 fL (80-94); Mean Platelet Volume 7.1 um3 (7.4-10.4); Platelet Count 421 10^3/ul (150-450); Red Blood Count 3.71 10^6/ul (4.0-5.4); Red Cell Distribution Width 13 % (10.5-15)
[2017-07-06 07:18] LABS: EGFR Non-African American 37.3 (>60)
[2017-07-06] MEDS: Insulin LISPRO* 1 UNITS UNIT SUBCUT SCH ×7 (07:36→17:35)
[2017-07-06] MEDS: Insulin GLARGINE(*) 1 UNITS UNIT SUBCUT SCH (07:50)
[2017-07-06] MEDS: Metoclopramide TAB* 10 MG PO SCH ×2 (07:51→20:27)
[2017-07-06] MEDS: Sucralfate TAB* 1 GM PO SCH ×3 (07:51→16:50)
[2017-07-06] MEDS: Omeprazole CAP* 20 MG PO SCH ×2 (07:51→20:27)
[2017-07-06] MEDS: amLODIPine TAB* 5 MG PO SCH (07:51)
[2017-07-06] MEDS: oxyCODONE/Acetamin 5/325 MG* TAB PO PRN ×3 (08:41→19:49)
--- NOTE | 2017-07-06 10:27 | PN ---
Subjective Date of Service: 07/06/17 Interval History: Pt is feeling a little better today. His pain is improved except when he eats/ drinks. He is going to try solid food for lunch now that he is feeling better. Objective Active Medications: Acetaminophen (Tylenol Tab*) 650 mg PO Q4H PRN PRN Reason: FEVER/PAIN Al Hydrox/Mg Hydrox/Simethicone (Maalox Plus*) 30 ml PO Q6H PRN PRN Reason: INDIGESTION Amlodipine Besylate (Norvasc Tab*) 5 mg PO DAILY [facility] Last Admin: 07/06/17 07:51 Dose: 5 mg Dextrose (D50w Syringe 50 Ml*) 12.5 gm IV PUSH .FOR FS < 60 - SS PRN PRN Reason: FS < 60 Docusate Sodium (Colace Cap*) 100 mg PO BID PRN PRN Reason: CONSTIPATION Hydralazine HCl (Apresoline Iv*) 5 mg IV SLOW PU Q6H PRN PRN Reason: BLOOD PRESSURE Last Admin: 07/04/17 18:35 Dose: 5 mg Hydromorphone HCl (Dilaudid Inj*) 0.5 mg IV SLOW PU Q4H PRN PRN Reason: PAIN Last Admin: 07/06/17 05:05 Dose: 0.5 mg Lactated Ringer's (Lactated Ringers 1000 Ml Bag*) 1,000 mls @ 75 mls/hr IV PER RATE [facility] Last Admin: 07/06/17 07:50 Dose: 75 mls/hr Insulin Glargine (Lantus(*)) 27 units SUBCUT [facility] Last Admin: 07/06/17 07:50 Dose: 27 units Insulin Human Lispro (Humalog*) 0 units SUBCUT [facility] PRN Reason: Protocol Last Admin: 07/06/17 07:36 Dose: Not Given Insulin Human Lispro (Humalog*) 0 units SUBCUT [facility] PRN Reason: Protocol Last Admin: 07/06/17 07:36 Dose: Not Given Metoclopramide HCl (Reglan Tab*) 10 mg PO BID [facility] Last Admin: 07/06/17 07:51 Dose: 10 mg Omeprazole (Prilosec Cap*) 40 mg PO BID [facility] Last Admin: 07/06/17 07:51 Dose: 40 mg Ondansetron HCl (Zofran Inj*) 4 mg IV Q4H PRN PRN Reason: NAUSEA/VOMITING Oxycodone/Acetaminophen (Percocet 5/325 Tab*) 1 tab PO Q4H PRN PRN Reason: Pain Last Admin: 07/06/17 08:41 Dose: 1 tab Quetiapine Fumarate (Seroquel Tab*) 200 mg PO BEDTIME [facility] Last Admin: 07/05/17 21:01 Dose: 200 mg Sucralfate (Carafate*) 1 gm PO AC [facility] Last Admin: 07/06/17 07:51 Dose: 1 gm Vital Signs - 8 hr 07/06/17 07/06/17 07/06/17 05:05 06:09 07:28 Temperature 98.1 F Pulse Rate 117 Respiratory 18 16 16 Rate Blood Pressure 134/97 (mmHg) O2 Sat by Pulse 100 Oximetry 07/06/17 07/06/17 07/06/17 08:00 08:41 10:14 Temperature Pulse Rate Respiratory 20 20 18 Rate Blood Pressure (mmHg) O2 Sat by Pulse Oximetry Oxygen Devices in Use Now: None Appearance: Young male lying in bed, NAD Eyes: No Scleral Icterus Ears/Nose/Mouth/Throat: Mucous Membranes Moist Respiratory: Symmetrical Chest Expansion and Respiratory Effort, Clear to Auscultation Cardiovascular: NL Sounds; No Murmurs; No JVD, RRR, No Edema Abdominal: - - BS+ soft, ND, minimal tenderness to epigastrum Extremities: No Clubbing, Cyanosis Skin: No Nodules or Sclerosis Neurological: Alert and Oriented x 3 Result Diagrams: 07/06/17 06:29 07/06/17 06:29 Additional Lab and Data: Lab Results 07/03/17 07/03/17 07/03/17 Range/Units 18:45 18:55 18:55 WBC 28.3 H (3.5-10.8) 10^3/ul RBC 3.85 L (4.0-5.4) 10^6/ul Hgb 11.0 L (14.0-18.0) g/dl Hct 33 L (42-52) % MCV 85 (80-94) fL MCH 29 (27-31) pg MCHC 34 (31-36) g/dl RDW 13 (10.5-15) % Plt Count 548 H (150-450) 10^3/ul MPV 8.2 (7.4-10.4) um3 Neut % (Auto) 94.5 H (38-83) % Lymph % (Auto) 2.7 L (25-47) % [place] % (Auto) 2.4 (0-7) % Eos % (Auto) 0 (0-6) % Baso % (Auto) 0.4 (0-2) % Absolute Neuts (auto) 26.7 H (1.5-7.7) 10^3/ul Absolute Lymphs (auto) 0.8 L (1.0-4.8) 10^3/ul Absolute Monos (auto) 0.7 (0-0.8) 10^3/ul Absolute Eos (auto) 0 (0-0.6) 10^3/ul Absolute Basos (auto) 0.1 (0-0.2) 10^3/ul Absolute Nucleated RBC 0 10^3/ul Nucleated RBC % 0 Sodium 126 L (139-145) mmol/L Potassium 4.1 (3.5-5.0) mmol/L Chloride 89 L (101-111) mmol/L Carbon Dioxide 21 L (22-32) mmol/L Anion Gap 16 H (2-11) mmol/L BUN 34 H (6-24) mg/dL Creatinine 2.65 H (0.67-1.17) mg/dL Est GFR ( Amer) 35.3 (>60) Est GFR (Non-Af Amer) 27.5 (>60) BUN/Creatinine Ratio 12.8 (8-20) Glucose 550 H* (70-100) mg/dL Lactic Acid 2.2 H* (0.5-2.0) mmol/L Calcium 10.3 (8.6-10.3) mg/dL Total Bilirubin 0.40 (0.2-1.0) mg/dL AST 24 (13-39) U/L ALT 54 H (7-52) U/L Alkaline Phosphatase 142 H (34-104) U/L C-Reactive Protein 4.40 (< 5.00) mg/L Total Protein 8.0 (6.4-8.9) g/dL Albumin 4.5 (3.2-5.2) g/dL Globulin 3.5 (2-4) g/dL Albumin/Globulin Ratio 1.3 (1-3) Lipase 14 (11.0-82.0) U/L Assess/Plan/Problems-Billing Mr Simmons is a 37 year old male with type I DM, diabetic gastroparesis and celiac disease presents with intractable abdominal pain and DKA. - Patient Problems (1) Leukocytosis Current Visit: Yes Status: Acute Code(s): D72.829 - ELEVATED WHITE BLOOD CELL COUNT, UNSPECIFIED SNOMED Code(s): 294988012 Comment: WBC count improving. No signs of infection. (2) Abdominal pain Current Visit: Yes Status: Acute Code(s): R10.9 - UNSPECIFIED ABDOMINAL PAIN SNOMED Code(s): 50375021 Comment: Pt continues to have abdominal pain but generally is better. He has only been eating clears but is going to eat solid food tomorrow. Likely home tomorrow. (3) DKA (diabetic ketoacidoses) Current Visit: Yes Status: Acute Code(s): E13.10 - OTH DIABETES MELLITUS WITH KETOACIDOSIS WITHOUT COMA SNOMED Code(s): 885009730 Comment: Resolved. Increased lantus gave better blood sugar control. (4) Diabetic gastroparesis Current Visit: Yes Status: Acute Code(s): E11.43 - TYPE 2 DIABETES W DIABETIC AUTONOMIC (POLY)NEUROPATHY; K31.84 - GASTROPARESIS SNOMED Code(s): 300870638 Comment: Continue Reglan. Advance diet and monitor symptoms. (5) DVT prophylaxis Current Visit: Yes Status: Acute Code(s): FLT6328 - SNOMED Code(s): 742938440 Comment: ambulation (6) Full code status Current Visit: Yes Status: Acute Onset Date: 06/14/14 Code(s): Z78.9 - OTHER SPECIFIED HEALTH STATUS SNOMED Code(s): 202838894 Status and Disposition: .
[2017-07-06] MEDS ORDERED: Potassium Chlor TAB* 20 MEQ TAB.ER PO ONE (15:03)
[2017-07-06] MEDS: QUEtiapine TAB* 100 MG PO SCH (21:12)
[2017-07-07] MEDS: HYDROmorphone INJ* 2 MG/ML CARPUJECT SYRINGE IV SLOW PU PRN ×4 (03:02→22:27)
[2017-07-07] MEDS: Insulin LISPRO* 1 UNITS UNIT SUBCUT SCH ×5 (08:13→16:50)
[2017-07-07] MEDS: Omeprazole CAP* 20 MG PO SCH ×2 (08:15→19:47)
[2017-07-07] MEDS: Sucralfate TAB* 1 GM PO SCH ×3 (08:15→16:47)
[2017-07-07] MEDS: oxyCODONE/Acetamin 5/325 MG* TAB PO PRN ×2 (08:15→13:00)
[2017-07-07] MEDS: Insulin GLARGINE(*) 1 UNITS UNIT SUBCUT SCH (08:15)
[2017-07-07] MEDS: amLODIPine TAB* 5 MG PO SCH (08:16)
[2017-07-07] MEDS: Metoclopramide TAB* 10 MG PO SCH ×2 (08:16→19:48)
--- NOTE | 2017-07-07 14:53 | PN ---
Subjective Date of Service: 07/07/17 Interval History: Pt is feeling about the same. He describes having severe pain with the act of eating, nursing notes his HR increases to ~140's when he is eating. He feels the pain in his epigastrum. Overall he was able to eat a little more today than previous but he states it was still severely painful. Objective Active Medications: Acetaminophen (Tylenol Tab*) 650 mg PO Q4H PRN PRN Reason: FEVER/PAIN Al Hydrox/Mg Hydrox/Simethicone (Maalox Plus*) 30 ml PO Q6H PRN PRN Reason: INDIGESTION Last Admin: 07/06/17 19:49 Dose: 30 ml Amlodipine Besylate (Norvasc Tab*) 5 mg PO DAILY [facility] Last Admin: 07/07/17 08:16 Dose: 5 mg Dextrose (D50w Syringe 50 Ml*) 12.5 gm IV PUSH .FOR FS < 60 - SS PRN PRN Reason: FS < 60 Docusate Sodium (Colace Cap*) 100 mg PO BID PRN PRN Reason: CONSTIPATION Hydralazine HCl (Apresoline Iv*) 5 mg IV SLOW PU Q6H PRN PRN Reason: BLOOD PRESSURE Last Admin: 07/04/17 18:35 Dose: 5 mg Hydromorphone HCl (Dilaudid Inj*) 0.5 mg IV SLOW PU Q4H PRN PRN Reason: PAIN Last Admin: 07/07/17 09:20 Dose: 0.5 mg Insulin Glargine (Lantus(*)) 27 units SUBCUT [facility]AM [facility] Last Admin: 07/07/17 08:15 Dose: 27 units Insulin Human Lispro (Humalog*) 0 units SUBCUT AC [facility] PRN Reason: Protocol Last Admin: 07/07/17 13:01 Dose: 1 units Metoclopramide HCl (Reglan Tab*) 10 mg PO BID [facility] Last Admin: 07/07/17 08:16 Dose: 10 mg Metoprolol Tartrate (Lopressor Tab*) 12.5 mg PO BID [facility] Omeprazole (Prilosec Cap*) 40 mg PO BID [facility] Last Admin: 07/07/17 08:15 Dose: 40 mg Ondansetron HCl (Zofran Inj*) 4 mg IV Q4H PRN PRN Reason: NAUSEA/VOMITING Oxycodone/Acetaminophen (Percocet 5/325 Tab*) 1 tab PO Q4H PRN PRN Reason: Pain Last Admin: 07/07/17 13:00 Dose: 1 tab Quetiapine Fumarate (Seroquel Tab*) 200 mg PO BEDTIME [facility] Last Admin: 07/06/17 21:12 Dose: 200 mg Sucralfate (Carafate*) 1 gm PO AC [facility] Last Admin: 07/07/17 13:00 Dose: 1 gm Vital Signs - 8 hr 07/07/17 07/07/17 07/07/17 07:56 08:00 08:15 Temperature 98.2 F Pulse Rate 104 Respiratory 13 20 18 Rate Blood Pressure 151/97 (mmHg) O2 Sat by Pulse 99 Oximetry 07/07/17 07/07/17 07/07/17 09:20 11:06 11:46 Temperature 99.1 F Pulse Rate 101 Respiratory 18 18 16 Rate Blood Pressure 147/97 (mmHg) O2 Sat by Pulse 100 Oximetry 07/07/17 13:00 Temperature Pulse Rate Respiratory 18 Rate Blood Pressure (mmHg) O2 Sat by Pulse Oximetry Oxygen Devices in Use Now: None Appearance: Young male lying in bed, NAD Eyes: No Scleral Icterus Ears/Nose/Mouth/Throat: Mucous Membranes Moist Respiratory: Symmetrical Chest Expansion and Respiratory Effort, Clear to Auscultation Cardiovascular: NL Sounds; No Murmurs; No JVD, No Edema, - - mildly tachycardic Abdominal: - - BS+ soft, ND, tender in epigastrum/RUQ Extremities: No Clubbing, Cyanosis Skin: No Rash or Ulcers Neurological: Alert and Oriented x 3 Result Diagrams: 07/06/17 06:29 07/06/17 06:29 Additional Lab and Data: Lab Results 07/03/17 07/03/17 07/03/17 Range/Units 18:45 18:55 18:55 WBC 28.3 H (3.5-10.8) 10^3/ul RBC 3.85 L (4.0-5.4) 10^6/ul Hgb 11.0 L (14.0-18.0) g/dl Hct 33 L (42-52) % MCV 85 (80-94) fL MCH 29 (27-31) pg MCHC 34 (31-36) g/dl RDW 13 (10.5-15) % Plt Count 548 H (150-450) 10^3/ul MPV 8.2 (7.4-10.4) um3 Neut % (Auto) 94.5 H (38-83) % Lymph % (Auto) 2.7 L (25-47) % [place] % (Auto) 2.4 (0-7) % Eos % (Auto) 0 (0-6) % Baso % (Auto) 0.4 (0-2) % Absolute Neuts (auto) 26.7 H (1.5-7.7) 10^3/ul Absolute Lymphs (auto) 0.8 L (1.0-4.8) 10^3/ul Absolute Monos (auto) 0.7 (0-0.8) 10^3/ul Absolute Eos (auto) 0 (0-0.6) 10^3/ul Absolute Basos (auto) 0.1 (0-0.2) 10^3/ul Absolute Nucleated RBC 0 10^3/ul Nucleated RBC % 0 Sodium 126 L (139-145) mmol/L Potassium 4.1 (3.5-5.0) mmol/L Chloride 89 L (101-111) mmol/L Carbon Dioxide 21 L (22-32) mmol/L Anion Gap 16 H (2-11) mmol/L BUN 34 H (6-24) mg/dL Creatinine 2.65 H (0.67-1.17) mg/dL Est GFR ( Amer) 35.3 (>60) Est GFR (Non-Af Amer) 27.5 (>60) BUN/Creatinine Ratio 12.8 (8-20) Glucose 550 H* (70-100) mg/dL Lactic Acid 2.2 H* (0.5-2.0) mmol/L Calcium 10.3 (8.6-10.3) mg/dL Total Bilirubin 0.40 (0.2-1.0) mg/dL AST 24 (13-39) U/L ALT 54 H (7-52) U/L Alkaline Phosphatase 142 H (34-104) U/L C-Reactive Protein 4.40 (< 5.00) mg/L Total Protein 8.0 (6.4-8.9) g/dL Albumin 4.5 (3.2-5.2) g/dL Globulin 3.5 (2-4) g/dL Albumin/Globulin Ratio 1.3 (1-3) Lipase 14 (11.0-82.0) U/L Assess/Plan/Problems-Billing Mr Simmons is a 37 year old male with type I DM, diabetic gastroparesis and celiac disease presents with intractable abdominal pain and DKA. - Patient Problems (1) Leukocytosis Current Visit: Yes Status: Acute Code(s): D72.829 - ELEVATED WHITE BLOOD CELL COUNT, UNSPECIFIED SNOMED Code(s): 619345783 Comment: No signs of infection. (2) Abdominal pain Current Visit: Yes Status: Acute Code(s): R10.9 - UNSPECIFIED ABDOMINAL PAIN SNOMED Code(s): 89027455 Comment: Pt continues to have abdominal pain most severe with eating. ? need for repeat EGD to eval for gastritis, candidiasis vs other. GI consult tomorrow. He has only been able to eat a couple bites of food at each meal. He remains tachycardic most notably with eating but is also present with exertion and at baseline. I will start metoprolol 12.5mg BID and monitor HR. (3) DKA (diabetic ketoacidoses) Current Visit: Yes Status: Acute Code(s): E13.10 - OTH DIABETES MELLITUS WITH KETOACIDOSIS WITHOUT COMA SNOMED Code(s): 283237489 Comment: Resolved. Increased lantus gave better blood sugar control. (4) Diabetic gastroparesis Current Visit: Yes Status: Acute Code(s): E11.43 - TYPE 2 DIABETES W DIABETIC AUTONOMIC (POLY)NEUROPATHY; K31.84 - GASTROPARESIS SNOMED Code(s): 683865344 Comment: Continue Reglan. Advance diet and monitor symptoms. (5) DVT prophylaxis Current Visit: Yes Status: Acute Code(s): UHC6773 - SNOMED Code(s): 987031876 Comment: ambulation (6) Full code status Current Visit: Yes Status: Acute Onset Date: 06/14/14 Code(s): Z78.9 - OTHER SPECIFIED HEALTH STATUS SNOMED Code(s): 901969024 Status and Disposition: .
[2017-07-07] MEDS: Metoprolol Tartrate TAB* 25 MG PO SCH ×2 (15:27→19:48)
[2017-07-07] MEDS: QUEtiapine TAB* 100 MG PO SCH (22:27)
[2017-07-08] MEDS: HYDROmorphone INJ* 2 MG/ML CARPUJECT SYRINGE IV SLOW PU PRN ×4 (05:20→21:26)
[2017-07-08] MEDS: Insulin LISPRO* 1 UNITS UNIT SUBCUT SCH ×3 (09:03→17:18)
[2017-07-08] MEDS: Metoprolol Tartrate TAB* 25 MG PO SCH ×2 (09:17→20:44)
[2017-07-08] MEDS: Sucralfate TAB* 1 GM PO SCH ×3 (09:17→17:31)
[2017-07-08] MEDS: amLODIPine TAB* 5 MG PO SCH (09:17)
[2017-07-08] MEDS: Omeprazole CAP* 20 MG PO SCH ×2 (09:17→20:44)
[2017-07-08] MEDS: Metoclopramide TAB* 10 MG PO SCH ×2 (09:17→20:45)
[2017-07-08] MEDS: Insulin GLARGINE(*) 1 UNITS UNIT SUBCUT SCH (09:20)
--- NOTE | 2017-07-08 10:28 | PN ---
Subjective Date of Service: 07/08/17 Interval History: Pt is feeling the same. He met with Dr. Mazariegos this AM and will be going for EGD this afternoon. Objective Active Medications: Acetaminophen (Tylenol Tab*) 650 mg PO Q4H PRN PRN Reason: FEVER/PAIN Al Hydrox/Mg Hydrox/Simethicone (Maalox Plus*) 30 ml PO Q6H PRN PRN Reason: INDIGESTION Last Admin: 07/06/17 19:49 Dose: 30 ml Amlodipine Besylate (Norvasc Tab*) 5 mg PO DAILY [facility] Last Admin: 07/08/17 09:17 Dose: 5 mg Dextrose (D50w Syringe 50 Ml*) 12.5 gm IV PUSH .FOR FS < 60 - SS PRN PRN Reason: FS < 60 Docusate Sodium (Colace Cap*) 100 mg PO BID PRN PRN Reason: CONSTIPATION Hydralazine HCl (Apresoline Iv*) 5 mg IV SLOW PU Q6H PRN PRN Reason: BLOOD PRESSURE Last Admin: 07/04/17 18:35 Dose: 5 mg Hydromorphone HCl (Dilaudid Inj*) 0.5 mg IV SLOW PU Q4H PRN PRN Reason: PAIN Last Admin: 07/08/17 09:37 Dose: 0.5 mg Insulin Glargine (Lantus(*)) [facility] Last Admin: 07/08/17 09:20 Dose: Not Given Insulin Human Lispro (Humalog*) 0 units SUBCUT AC [facility] PRN Reason: Protocol Last Admin: 07/08/17 09:03 Dose: Not Given Metoclopramide HCl (Reglan Tab*) 10 mg PO BID [facility] Last Admin: 07/08/17 09:17 Dose: 10 mg Metoprolol Tartrate (Lopressor Tab*) 12.5 mg PO BID [facility] Last Admin: 07/08/17 09:17 Dose: 12.5 mg Omeprazole (Prilosec Cap*) 40 mg PO BID [facility] Last Admin: 07/08/17 09:17 Dose: 40 mg Ondansetron HCl (Zofran Inj*) 4 mg IV Q4H PRN PRN Reason: NAUSEA/VOMITING Oxycodone/Acetaminophen (Percocet 5/325 Tab*) 1 tab PO Q4H PRN PRN Reason: Pain Last Admin: 07/07/17 13:00 Dose: 1 tab Quetiapine Fumarate (Seroquel Tab*) 200 mg PO BEDTIME [facility] Last Admin: 07/07/17 22:27 Dose: 200 mg Sucralfate (Carafate*) 1 gm PO AC [facility] Last Admin: 07/08/17 09:17 Dose: 1 gm Vital Signs - 8 hr 07/08/17 07/08/17 07/08/17 02:57 05:20 06:16 Temperature 98.6 F Pulse Rate 89 Respiratory 16 18 18 Rate Blood Pressure 126/83 (mmHg) O2 Sat by Pulse 99 Oximetry 07/08/17 07/08/17 07:51 09:37 Temperature 98.3 F Pulse Rate 108 Respiratory 20 15 Rate Blood Pressure 147/97 (mmHg) O2 Sat by Pulse 100 Oximetry Oxygen Devices in Use Now: None Appearance: Young male lying in bed, NAD Eyes: No Scleral Icterus Ears/Nose/Mouth/Throat: Mucous Membranes Moist Respiratory: Symmetrical Chest Expansion and Respiratory Effort, Clear to Auscultation Cardiovascular: NL Sounds; No Murmurs; No JVD, RRR, No Edema Abdominal: NL Sounds; No Tenderness; No Distention, - - mild tenderness in epigastrum Extremities: No Clubbing, Cyanosis Skin: No Nodules or Sclerosis Neurological: Alert and Oriented x 3 Result Diagrams: 07/06/17 06:29 07/06/17 06:29 Additional Lab and Data: Lab Results 07/03/17 07/03/17 07/03/17 Range/Units 18:45 18:55 18:55 WBC 28.3 H (3.5-10.8) 10^3/ul RBC 3.85 L (4.0-5.4) 10^6/ul Hgb 11.0 L (14.0-18.0) g/dl Hct 33 L (42-52) % MCV 85 (80-94) fL MCH 29 (27-31) pg MCHC 34 (31-36) g/dl RDW 13 (10.5-15) % Plt Count 548 H (150-450) 10^3/ul MPV 8.2 (7.4-10.4) um3 Neut % (Auto) 94.5 H (38-83) % Lymph % (Auto) 2.7 L (25-47) % [place] % (Auto) 2.4 (0-7) % Eos % (Auto) 0 (0-6) % Baso % (Auto) 0.4 (0-2) % Absolute Neuts (auto) 26.7 H (1.5-7.7) 10^3/ul Absolute Lymphs (auto) 0.8 L (1.0-4.8) 10^3/ul Absolute Monos (auto) 0.7 (0-0.8) 10^3/ul Absolute Eos (auto) 0 (0-0.6) 10^3/ul Absolute Basos (auto) 0.1 (0-0.2) 10^3/ul Absolute Nucleated RBC 0 10^3/ul Nucleated RBC % 0 Sodium 126 L (139-145) mmol/L Potassium 4.1 (3.5-5.0) mmol/L Chloride 89 L (101-111) mmol/L Carbon Dioxide 21 L (22-32) mmol/L Anion Gap 16 H (2-11) mmol/L BUN 34 H (6-24) mg/dL Creatinine 2.65 H (0.67-1.17) mg/dL Est GFR ( Amer) 35.3 (>60) Est GFR (Non-Af Amer) 27.5 (>60) BUN/Creatinine Ratio 12.8 (8-20) Glucose 550 H* (70-100) mg/dL Lactic Acid 2.2 H* (0.5-2.0) mmol/L Calcium 10.3 (8.6-10.3) mg/dL Total Bilirubin 0.40 (0.2-1.0) mg/dL AST 24 (13-39) U/L ALT 54 H (7-52) U/L Alkaline Phosphatase 142 H (34-104) U/L C-Reactive Protein 4.40 (< 5.00) mg/L Total Protein 8.0 (6.4-8.9) g/dL Albumin 4.5 (3.2-5.2) g/dL Globulin 3.5 (2-4) g/dL Albumin/Globulin Ratio 1.3 (1-3) Lipase 14 (11.0-82.0) U/L Assess/Plan/Problems-Billing Mr Simmons is a 37 year old male with type I DM, diabetic gastroparesis and celiac disease presents with intractable abdominal pain and DKA. - Patient Problems (1) Leukocytosis Current Visit: Yes Status: Acute Code(s): D72.829 - ELEVATED WHITE BLOOD CELL COUNT, UNSPECIFIED SNOMED Code(s): 565306531 Comment: No signs of infection. (2) Abdominal pain Current Visit: Yes Status: Acute Code(s): R10.9 - UNSPECIFIED ABDOMINAL PAIN SNOMED Code(s): 89678052 Comment: Pt continues to have abdominal pain most severe with eating. Plan for EGD this afternoon to eval for possible esophagitis. Await results of EGD before making further plans. (3) DKA (diabetic ketoacidoses) Current Visit: Yes Status: Acute Code(s): E13.10 - OTH DIABETES MELLITUS WITH KETOACIDOSIS WITHOUT COMA SNOMED Code(s): 149033201 Comment: Low sugars this AM. Lantus on hold for now for EGD. Will need to get a dose today to prevent pt from going back into DKA. (4) Diabetic gastroparesis Current Visit: Yes Status: Acute Code(s): E11.43 - TYPE 2 DIABETES W DIABETIC AUTONOMIC (POLY)NEUROPATHY; K31.84 - GASTROPARESIS SNOMED Code(s): 868656623 Comment: Continue Reglan. Advance diet and monitor symptoms after EGD. (5) DVT prophylaxis Current Visit: Yes Status: Acute Code(s): TEQ6758 - SNOMED Code(s): 050131987 Comment: ambulation (6) Full code status Current Visit: Yes Status: Acute Onset Date: 06/14/14 Code(s): Z78.9 - OTHER SPECIFIED HEALTH STATUS SNOMED Code(s): 811936056 Status and Disposition: .
--- NOTE | 2017-07-08 10:49 | CONS ---
CC: Dr. De Paz* CONSULTATION REPORT: DATE OF CONSULT: 07/08/17 REQUESTING PHYSICIAN: Dr. Haylee Stout. PRIMARY CARE PHYSICIAN: Dr. De Paz. NARRATIVE: Mr. Simmons is a very pleasant 37-year-old gentleman with a history of type 1 diabetes who was admitted to the hospital on 07/03/17 with abdominal pain and DKA. The patient states that he has been experiencing severe abdominal pain, located mainly just below the xiphoid process for the past couple of weeks. He did have similar pain back in April, at which time he did have an upper endoscopy, which showed a nonspecific esophagitis. Biopsies were negative for any fungal or viral causes. The patient states he is having painful swallowing with liquids and/or liquids. Food does not appear to be getting stuck. He denies any heartburn. There is no unintentional weight loss. No fevers or chills. He has been transferred out of the intensive care unit as his DKA has improved. 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 MEDICATIONS: Include: 1. Seroquel. 2. Reglan. 3. Lantus. ALLERGIES: GLUTEN. FAMILY HISTORY: No GI malignancies in the family. SOCIAL HISTORY: Smokes a pack a week of tobacco. No alcohol use. REVIEW OF SYSTEMS: All systems are reviewed and other than that mentioned in the HPI were unremarkable. PHYSICAL EXAM: Temperature is 98.3, blood pressure is 147/97, pulse is 108. General: Mildly chronically ill-appearing male, in no apparent distress. Alert , oriented, pleasant and fluent. HEENT: Mucous membranes are moist without lesions, ulcers or exudates. Neck: Supple. Trachea is midline. Head is normocephalic, atraumatic. Heart: Regular rate and rhythm. Tachy. Lungs: Clear to auscultation bilaterally. Abdomen: Positive bowel sounds. Soft. He is tender in the epigastrium. No rebound, no guarding, no masses are felt. Skin is warm and dry. LABORATORY DATA: Labs of note: White count is 11, hemoglobin 10.6, platelets are 421. Creatinine 2.03. ASSESSMENT AND PLAN: This is a pleasant 37-year-old gentleman with odynophagia , possible causes would include jack esophagitis versus viral cause such cytomegalovirus or herpes simplex virus. The patient states that this is different than when he had his last endoscopy in April. At that time, a nonspecific esophagitis was found. I think at this point we need to perform another endoscopy to look for the above mentioned. He is understanding and agreeable. I will make arrangements for his EGD later on today. [id number]/[facility] #: [id number] DESHAUN
[2017-07-08] MEDS: oxyCODONE/Acetamin 5/325 MG* TAB PO PRN (12:36)
[2017-07-08] MEDS ORDERED: Midazolam* 1 MG/ML 10 ML VIAL (10 MG) ONE (14:32)
[2017-07-08] MEDS ORDERED: fentaNYL* 50 MCG/ML 2 ML VIAL (100 MCG VIAL) ONE (14:32)
[2017-07-08] MEDS: QUEtiapine TAB* 100 MG PO SCH (20:44)
--- NOTE | 2017-07-09 00:03 | PRO ---
PROCEDURE REPORT: DATE OF PROCEDURE: 07/08/17 PROCEDURE: EGD. INDICATION: Odynophagia. MEDICATIONS GIVEN: 1. 150 mcg IV fentanyl. 2. 15 mg IV Versed. DESCRIPTION OF PROCEDURE: After the EGD procedure including the risks, benefits , and alternatives not limited to perforation, surgery, and/or were explained to the patient, written consent was then obtained, IV medication was given and a bite-block was placed between the teeth. An Olympus gastroscope was then inserted into the patient's mouth, advanced down the esophagus, into the stomach, into the distal duodenum. In the esophagus, there was a yellowish , whitish exudate from the distal esophagus about mcc up. This did not have a classic appearance for Katarzyna esophagitis. I did take biopsies and brushings. Scope was advanced through the GE junction into the body of the stomach. Retroflex and forward views revealed retained fluids. No ulcers were seen. The scope was advanced through a widely patent pylorus in the duodenal bulb, into the distal duodenum, both of which were unremarkable. The scope was then withdrawn from the patient. He tolerated the procedure well and was returned to the recovery room in stable condition. IMPRESSION: 1. Complete upper endoscopy into the distal duodenum with biopsies. 2. Distal esophagitis, status post biopsies and brushings. No ulcers to make me think of viral esophagitis. No classic appearance for Katarzyna esophagitis; however, biopsies and brushings are pending. 3. Otherwise, normal upper endoscopy. [id number]/[facility] #: [id number] MTDD
[2017-07-09] MEDS: HYDROmorphone INJ* 2 MG/ML CARPUJECT SYRINGE IV SLOW PU PRN ×4 (05:22→19:18)
[2017-07-09] MEDS: Insulin LISPRO* 1 UNITS UNIT SUBCUT SCH ×3 (08:16→17:00)
[2017-07-09] MEDS: Insulin GLARGINE(*) 1 UNITS UNIT SUBCUT SCH (08:16)
[2017-07-09] MEDS: Sucralfate TAB* 1 GM PO SCH ×3 (08:17→17:00)
[2017-07-09] MEDS: Omeprazole CAP* 20 MG PO SCH ×2 (09:12→21:29)
[2017-07-09] MEDS: Metoclopramide TAB* 10 MG PO SCH ×2 (09:13→21:29)
[2017-07-09] MEDS: amLODIPine TAB* 5 MG PO SCH (09:13)
[2017-07-09] MEDS: Metoprolol Tartrate TAB* 25 MG PO SCH ×2 (09:13→21:28)
[2017-07-09] MEDS: Docusate CAP* 100 MG PO PRN ×2 (09:22→21:35)
[2017-07-09] MEDS: oxyCODONE/Acetamin 5/325 MG* TAB PO PRN ×2 (17:00→21:33)
--- NOTE | 2017-07-09 18:50 | PN ---
Hospitalist Progress Note Date of Service: 07/09/17 Pt seen and examined. Meds and labs reviewed. ROS: Complains of abdominal painDenied ELMORE/dizziness, F/C, N/V, CP, SOB, increased cough, sputum production, abd pain, diarrhea, constipation, dysuria, myalgias, arthralgias, throat pain, and new skin lesions. The rest of the 14 point ROS are unremarkable. PHYSICAL EXAM: GEN APPEARANCE: Awake, not in acute distress HEENT: NC/AT, PERRLA, moist oral mucosa, (-) throat erythema NECK: Soft, supple, (-) cervical LAD, (-)JVD HEART: S1S2 WNL, RRR, No MRG CHEST: CTA, BL, GAE, No W/R/R ABD: Soft, ND/NT, NABS 4x Q EXT: No C/C/E SKIN: Warm to touch PSYCH: No active psychosis, hallucinations, depression, SI/HI Assess/Plan/Problems-Billing Mr Simmons is a 37 year old male with type I DM, diabetic gastroparesis and celiac disease presents with intractable abdominal pain and DKA. - Patient Problems (1) Esophagitis Current Visit: No Status: Acute Priority: High Onset Date: 06/14/14 Code (s): K20.9 - ESOPHAGITIS, UNSPECIFIED SNOMED Code(s): 44857927 Comment: --Preliminary biopsy suggests esophagitis with possible ulceration despite not being seen in gross specimen --Discussed case with Dr. Mazariegos and pt for PPI BID for 1 month +/- sucralfate , however, given comorbidities with chronic abd pain, chose to continue sucralfate given he mentions it helps (2) Diabetic gastroparesis Current Visit: Yes Status: Acute Code(s): E11.43 - TYPE 2 DIABETES W DIABETIC AUTONOMIC (POLY)NEUROPATHY; K31.84 - GASTROPARESIS SNOMED Code(s): 531283175 Comment: Continue Reglan and continue current diet and watchful waiting (3) Abdominal pain Current Visit: Yes Status: Acute Code(s): R10.9 - UNSPECIFIED ABDOMINAL PAIN SNOMED Code(s): 56883971 Comment: Continue current pain meds Status and Disposition: Pt to be d/c'd in AM. D/C paper works and scripts are done. Will just need to be signed for any changes in AM
--- NOTE | 2017-07-09 20:17 | DS ---
CC: Genaro De Paz MD* DISCHARGE SUMMARY: DATE OF ADMISSION: 07/03/17 DATE OF DISCHARGE: 07/10/17 HISTORY OF PRESENT ILLNESS/HOSPITAL COURSE: The patient is 37-year-old gentleman with history of diabetes, gastroparesis and celiac disease, who presented to the emergency room due to abdominal pain on 07/03/17. He mentioned that he likely ate gluten on Saturday night on 07/01/17 and began to have some nausea, vomiting, and abdominal pain, which started on 07/02/17 at 4 a.m. Persistence of his signs and symptoms led to his evaluation in the ED for which the patient was found and treated for DKA. This has then subsequently improved; however, during his hospital course he was complaining of odynophagia and there was some suspicion of CMV esophagitis versus candidiasis and hence, an EGD was done with planned biopsy. Some preliminary results of the biopsy are available, which is suggestive of possible esophagitis versus esophageal ulcer with pending infectious disease screen, but there are no signs of neoplasia. Per Dr. Mazariegos, he did not see any gross ulceration during biopsy and touch base prior to the patient's discharge. The patient himself wanted to get discharged today and hence, he was advised to follow up with his PCP within 3 to 5 days post discharge and to follow up with Dr. Julius Mazariegos, especially to review his pathology results. He had been advised to take PPI's b.i.d. for at least 6 weeks and given his severe abdominal discomfort in the initial hospitalization stay, he was also placed on sucralfate, especially in light of a possible mild esophageal ulceration on preliminary biopsy. As mentioned, the patient has been informed that this will need to be confirmed and followed up with Dr. Mazariegos once the official reading is available. REVIEW OF SYSTEMS: The patient mentions that he has some baseline abdominal pain about 5/10, which is normal for him. The rest of the 14-point review of systems is otherwise unremarkable. PHYSICAL EXAMINATION: General Appearance: The patient is awake, not in acute distress. HEENT: Normocephalic, atraumatic. PERRLA. Extraocular muscles intact. Negative for icterus. Moist oral mucosa. Negative for throat erythema. Neck is soft, supple with no cervical lymphadenopathy, no JVD. Heart : S1, S2 within normal limits. Regular rate and rhythm. No murmurs, rubs, or gallops. Chest: Clear to auscultation bilaterally. Good air entry. No wheezes , rales, or rhonchi. Abdomen is soft, nondistended, tender to all 4 quadrants on moderate to deep palpation. Extremities: No cyanosis, clubbing, or edema. Psychiatric: No depression, psychosis. No suicidal or homicidal ideation. DISCHARGE MEDICATIONS: 1. Maalox Plus. 2. Norvasc. 3. Colace. 4. Lantus. 5. Percocet 5/325 one tab p.o. q.4 p.r.n., not to exceed 20 mg per day of oxycodone, only given 10 tabs. 6. Tylenol. 7. Quetiapine. 8. Insulin. 9. Metoclopramide. The patient has been advised to follow up with his PCP if more opiates will need to be prescribed. [id number]/[facility] #: [id number] Addendum: Pt later changed his mind and mentioned he was having abd pain later during the day and requests if can be monitored overnight MTDD
[2017-07-09] MEDS: QUEtiapine TAB* 100 MG PO SCH (21:27)
[2017-07-10] MEDS: HYDROmorphone INJ* 2 MG/ML CARPUJECT SYRINGE IV SLOW PU PRN (06:26)
[2017-07-10] MEDS: Sucralfate TAB* 1 GM PO SCH ×2 (07:48→12:57)
[2017-07-10 08:12] LABS: ABS Basophils 0 10^3/ul (0-0.2); ABS Eosinophils 0.4 10^3/ul (0-0.6); ABS Lymphocytes 1.2 10^3/ul (1.0-4.8); ABS Monocytes 0.8 10^3/ul (0-0.8); ABS Neutrophils 7.5 10^3/ul (1.5-7.7); ABS Nucleated RBC 0 10^3/ul; Eosinophil % 3.7 % (0-6); Hematocrit 31 % (42-52); Hemoglobin 10.6 g/dl (14.0-18.0); Lymphocyte % 12.5 % (25-47); Mean Corpuscular HGB Conc 35 g/dl (31-36); Mean Corpuscular Hemoglobin 29 pg (27-31); Mean Corpuscular Volume 84 fL (80-94); Mean Platelet Volume 7.2 um3 (7.4-10.4); Nucleated Red Blood Cells % 0; Platelet Count 452 10^3/ul (150-450); Red Blood Count 3.64 10^6/ul (4.0-5.4); Red Cell Distribution Width 13 % (10.5-15); White Blood Count 9.9 10^3/ul (3.5-10.8)
[2017-07-10 08:33] LABS: EGFR Non-African American 31.1 (>60)
[2017-07-10] MEDS: Insulin LISPRO* 1 UNITS UNIT SUBCUT SCH ×2 (09:09→12:57)
[2017-07-10] MEDS: Insulin GLARGINE(*) 1 UNITS UNIT SUBCUT SCH (09:09)
[2017-07-10] MEDS: Omeprazole CAP* 20 MG PO SCH (09:09)
[2017-07-10] MEDS: Metoprolol Tartrate TAB* 25 MG PO SCH (09:10)
[2017-07-10] MEDS: Metoclopramide TAB* 10 MG PO SCH (09:10)
[2017-07-10] MEDS: amLODIPine TAB* 5 MG PO SCH (09:10)
--- NOTE | 2017-07-10 13:50 | PN ---
"Progress Note - Progress Note Date of Service: 07/10/17 Note: This report was requested by: Parvez Riojas | Reference #: [id number] Others' Prescriptions Patient Name: Barron Simmons Date: 1980 Address: [address] [place] [address] [address] [place] [address] Sex: Male Rx Written Rx Dispensed Drug Quantity Days Supply Prescriber Name 12/17/2016 12/17/2016 tramadol hcl 50 mg tablet 30 8 Jordy Johnson G (Lane D ) 11/25/2016 11/27/2016 oxycodone-acetaminophen 7.5-325 mg tablet 15 4 Abdullahi Sams MD 09/24/2016 09/25/2016 oxycodone-acetaminophen 5-325 mg tab 10 3 Abelino Sepulveda MD 09/05/2016 09/09/2016 oxycodone-acetaminophen 5-325 mg tab 20 5 John Mckenna DO"
[2017-07-10 14:06] VITALS: BP 107/63
== END 2017-07-10 14:30 | disposition home or self-care (01) | DRG 420 ==
LOC: ED 14:16 → ICU 20:38 → MED 07-04 21:46
PROVIDERS: ADMIT Pediatrics; ATTEND Internal Medicine
PROC: 0DD38ZX Extraction of Lower Esophagus, Via Natural or Artificial Opening Endoscopic, Diagnostic (ICD-10-PCS; principal; 2017-07-08)
PROC: 0DB38ZX Excision of Lower Esophagus, Via Natural or Artificial Opening Endoscopic, Diagnostic (ICD-10-PCS; 2017-07-08)
DX: E10.10 Type 1 diabetes mellitus with ketoacidosis without coma (principal); F31.89 Other bipolar disorder; K22.10 Ulcer of esophagus without bleeding; K90.0 Celiac disease; E10.43 Type 1 diabetes mellitus with diabetic autonomic (poly)neuropathy; K31.84 Gastroparesis; F32.9 Major depressive disorder, single episode, unspecified; F43.10 Post-traumatic stress disorder, unspecified; E10.21 Type 1 diabetes mellitus with diabetic nephropathy; E10.42 Type 1 diabetes mellitus with diabetic polyneuropathy; E10.3599 Type 1 diabetes mellitus with proliferative diabetic retinopathy without macular edema, unspecified eye; F17.210 Nicotine dependence, cigarettes, uncomplicated; F12.10 Cannabis abuse, uncomplicated; E10.22 Type 1 diabetes mellitus with diabetic chronic kidney disease; N18.9 Chronic kidney disease, unspecified; D72.829 Elevated white blood cell count, unspecified; R10.9 Unspecified abdominal pain; Z79.4 Long term (current) use of insulin; Z79.899 Other long term (current) drug therapy; Z91.018 Allergy to other foods; Z82.5 Family history of asthma and other chronic lower respiratory diseases; R13.10 Dysphagia, unspecified; R94.5 Abnormal results of liver function studies
CPT/HCPCS: 36415; 76705; 80048; 80053; 80074; 80076; 80307; 80329; 81003; 81015; 83036; 83605; 83690; 83735; 85025; 85027; 86140; 87102; 88112; 88305; 88312; 88342; 99156; 99285; 99406; A9270-GY; G0480; J0360; J1170; J1815; J2250; J2270; J2405; J3010

== ENCOUNTER 2017-07-19 17:40 | Emergency (ER) | payer OTHER ==
[2017-07-19] MEDS ORDERED: Morphine VIAL* 4 MG/ML VIAL (1 ml vial) IV ONE (18:08)
[2017-07-19] MEDS ORDERED: NS 0.9% 1000 ML* 2,000 ML IV ONE (18:08)
[2017-07-19] MEDS ORDERED: Ondansetron INJ* 2 MG/ML VIAL IV ONE (18:08)
[2017-07-19] MEDS ORDERED: Pantoprazole IV* 40 MG IV ONE (18:13)
--- NOTE | 2017-07-19 18:19 | ED ---
GI/ HPI - HPI Summary HPI Summary: 37-year-old male presents with acute on chronic epigastric pain. He states past 3 days the symptoms have gotten worse. He states that nothing different about this episode. Denies any chest pain or shortness of breath. He states his sugars have been running a little bit high. He has been compliant with his insulin. He denies any fevers. He denies any pain with urination. He denies any hematuria. Denies any flank pain. He denies any sore throat. He denies any blood in his vomit. He tried reglan without relief. He denies any previous abdominal surgeries. He was admitted a week ago for DKA and had a scope done in the hospital. He has not followed up with GI. Denies eating anything that would've triggered his celiac. He is a Type I diabetic with a history of celiac and gastroparesis. - History of Current Complaint Chief Complaint: EDAbdPain Time Seen by Provider: 07/19/17 18:07 Stated Complaint: NAUSEA/VOMITING Pain Intensity: 7 - Additional Pertinent History Primary Care Physician: WINNIE - Allergy/Home Medications Allergies/Adverse Reactions: Allergies Allergy/AdvReac Type Severity Reaction Status Date / Time gluten Allergy Abdominal Verified 07/19/17 17:52 Pain PMH/Surg Hx/FS Hx/Imm Hx Endocrine/Hematology History: Reports: Hx Diabetes - Type 1 Denies: Hx Anticoagulant Therapy, Hx Thyroid Disease, Hx Anemia Cardiovascular History: Denies: Hx Hypertension, Hx Pacemaker/ICD, Hx Peripheral Vascular Disease, Other Cardiovascular Problems/Disorders Respiratory History: Reports: Hx Pneumonia Denies: Hx Asthma, Hx Chronic Bronchitis, Hx Chronic Obstructive Pulmonary Disease (COPD), Hx Cystic Fibrosis, Hx Lung Cancer, Hx Pleural Effusion, Hx Pulmonary Edema, Hx Pulmonary Embolism, Hx Seasonal Allergies, Hx Sleep Apnea, Other Respiratory Problems/Disorders GI History: Reports: Hx Gastroesophageal Reflux Disease, Hx Gastrointestinal Bleed, Hx Ulcer, Other GI Disorders - Gastroparesis Denies: Hx Cirrhosis, Hx Crohn's Disease, Hx Diverticulosis, Hx Gall Bladder Disease, Hx Hiatal Hernia, Hx Irritable Bowel, Hx Jaundice, Hx Obstructive Bowel , Hx Ileostomy, Hx Pyloric Stenosis History: Reports: Other Problems/Disorders - chronic kidney disease Denies: Hx Kidney Stones, Hx Renal Disease Musculoskeletal History: Denies: Hx Arthritis, Hx Osteoporosis Sensory History: Reports: Hx Vision Problem Denies: Hx Cataracts, Hx Contacts or Glasses, Hx Eye Injury, Hx Eye Prosthesis, Hx Glaucoma, Hx Macular Degeneration, Hx Deafness, Hx Hearing Aid, Hx Hearing Problem, Other Sensory Impairments Opthamlomology History: Reports: Hx Vision Problem Denies: Hx Cataracts, Hx Contacts or Glasses, Hx Eye Injury, Hx Eye Prosthesis, Hx Glaucoma, Hx Macular Degeneration, Other Sensory Impairments Neurological History: Reports: Hx Headaches Denies: Hx Dementia, Hx Seizures, Hx Transient Ischemic Attacks (TIA) Psychiatric History: Reports: Hx Anxiety, Hx Depression, Hx Inpatient Treatment , Hx Community Mental Health Tx, Hx Bipolar Disorder, Hx Substance Abuse Denies: Hx Eating Disorder, Hx Panic Disorder, Hx Post Traumatic Stress Disorder, Hx Schizophrenia, Hx of Violent Episodes Against Others, Other Psychiatric Issues/Disorders - Cancer History Hx Chemotherapy: No Hx Radiation Therapy: No - Surgical History Hx Anesthesia Reactions: No - Immunization History Date of Tetanus Vaccine: utd Date of Influenza Vaccine: no Infectious Disease History: No Infectious Disease History: Denies: Hx Hepatitis, Hx Human Immunodeficiency Virus (HIV), Hx of Known/ Suspected MRSA, Hx Shingles, Hx Tuberculosis, History Other Infectious Disease, Traveled Outside the [place] in Last 30 Days - Family History Known Family History: Negative: Cardiac Disease, Hypertension, Diabetes Family History: NON CONTRIBUTORY - Social History Alcohol Use: None Hx Substance Use: Yes Substance Use Type: Reports: Marijuana Substance Use Comment - Amount & Last Used: weekly Hx Tobacco Use: Yes Smoking Status (MU): Current Some Day Smoker Type: Cigarettes Amount Used/How Often: 1/2PPD a day and has smoked in the last 30 days Length of Time of Smoking/Using Tobacco: 20 years Have You Smoked in the Last Year: Yes Review of Systems Negative: Fever Negative: Chest Pain Negative: Shortness Of Breath Positive: Abdominal Pain, Vomiting, Nausea. Negative: Diarrhea All Other Systems Reviewed And Are Negative: Yes Physical Exam Triage Information Reviewed: Yes Vital Signs On Initial Exam: Initial Vitals Temp Pulse Resp BP Pulse Ox 98.1 F 113 20 180/96 100 07/19/17 17:50 07/19/17 17:50 07/19/17 17:50 07/19/17 17:50 07/19/17 17:50 Vital Signs Reviewed: Yes Appearance: Positive: Well-Appearing Skin: Positive: Warm, Dry Head/Face: Positive: Normal Head/Face Inspection Eyes: Positive: Normal, EOMI, SARAHY, Conjunctiva Clear ENT: Positive: Normal ENT inspection, Pharynx normal, TMs normal Respiratory/Lung Sounds: Positive: Clear to Auscultation, Breath Sounds Present Cardiovascular: Positive: Normal, RRR Abdomen Description: Positive: Soft, Other: - epigastric tenderness, no rebound , neg vaca Bowel Sounds: Positive: Present Musculoskeletal: Positive: Normal Neurological: Positive: Normal Psychiatric: Positive: Normal Diagnostics - Vital Signs Vital Signs Temp Pulse Resp BP Pulse Ox 07/19/17 18:00 115 100 07/19/17 17:51 120 182/130 100 07/19/17 17:50 98.1 F 101 20 180/96 100 - Laboratory Result Diagrams: 07/19/17 18:15 07/19/17 18:15 Lab Statement: Any lab studies that have been ordered have been reviewed, and results considered in the medical decision making process. - Radiology abd Xray Interpretation: No Acute Changes Radiology Interpretation Completed By: Radiologist Re-Evaluation - Re-Evaluation First Eval Re-Evaluation Time: 20:30 Change: Improved Comment: not completely gone Second Eval Re-Evaluation Time: 21:30 Change: Improved Comment: pain free GIGU Course/Dx - Course Course Of Treatment: 37-year-old male presents with acute on chronic epigastric pain. He states past 3 days the symptoms have gotten worse. He states that nothing different about this episode. Denies any chest pain or shortness of breath. He states his sugars have been running a little bit high. He has been compliant with his insulin. He denies any fevers. He denies any pain with urination. He denies any hematuria. Denies any flank pain. He denies any sore throat. He denies any blood in his vomit. He tried reglan without relief. He denies any previous abdominal surgeries. He was admitted a week ago for DKA and had a scope done in the hospital. He has not followed up with GI. Denies eating anything that would've triggered his celiac. He is a Type I diabetic with a history of celiac and gastroparesis. tenderness epigastric. No rebound. Lungs clear to auscultation. white blood count 12 where has been in the past with these episodes. glucose is 220. lactic elevated at 2.9 will give fluids. gave pain medication and symptoms resolved. will send home with pain medication. told to follow up with GI. patient understand and agrees with plan. - Diagnoses Differential Diagnoses - Male: Esophagitis/Gastritis, Gastroenteritis (Viral), Urinary Tract Infection Provider Diagnoses: Epigastric pain Discharge - Sign-Out/Discharge Documenting (check all that apply): Discharge/Admit/Transfer - Discharge Plan Condition: Good Disposition: HOME Prescriptions: Al Hydrox/Mg Hydrox/Simet LIQ* [Maalox Plus*] 30 ml PO Q6H PRN #1 bottle PRN Reason: Dyspepsia Lidocaine 2% VISCOUS* [Xylocaine 2% Viscous*] 15 ml PO Q6H PRN #1 btl PRN Reason: Dyspepsia Ondansetron ODT TAB* [Zofran 4 MG Odt TAB*] 4 mg PO Q6H PRN #16 tab.odt PRN Reason: Nausea oxyCODONE/Acetamin 5/325 MG* [Percocet 5/325 TAB*] 1 tab PO Q6H PRN #12 tab MDD 4 PRN Reason: Pain Patient Education Materials: Epigastric Pain (ED) Referrals: Genaro De Paz MD [Primary Care Provider] - Additional Instructions: Take Maalox 30ml and 15ml viscous lidocaine every 6 hours for epigastric pain as needed take zofran every 6 hours for nausea Avoid acidic foods Take percocet as needed every 6 hours for pain Follow up with primary within 5 days, follow up with GI Return to ED if develop any new or worsening symptoms - Billing Disposition and Condition Condition: GOOD Disposition: HOME
[2017-07-19 18:23] LABS: ABS Basophils 0.1 10^3/ul (0-0.2); ABS Eosinophils 0.1 10^3/ul (0-0.6); ABS Lymphocytes 1.7 10^3/ul (1.0-4.8); ABS Monocytes 0.6 10^3/ul (0-0.8); ABS Neutrophils 10.3 10^3/ul (1.5-7.7); ABS Nucleated RBC 0 10^3/ul; Eosinophil % 0.7 % (0-6); Hematocrit 33 % (42-52); Hemoglobin 11.3 g/dl (14.0-18.0); Mean Corpuscular HGB Conc 34 g/dl (31-36); Mean Corpuscular Hemoglobin 29 pg (27-31); Mean Corpuscular Volume 83 fL (80-94); Mean Platelet Volume 7.3 um3 (7.4-10.4); Nucleated Red Blood Cells % 0; Platelet Count 614 10^3/ul (150-450); Red Blood Count 3.97 10^6/ul (4.0-5.4); Red Cell Distribution Width 12 % (10.5-15); White Blood Count 12.8 10^3/ul (3.5-10.8)
[2017-07-19] MEDS ORDERED: Ondansetron ODT TAB* 4 MG PO ONE (18:26)
[2017-07-19] MEDS ORDERED: Ondansetron ODT TAB* 4 MG ONE (18:27)
--- NOTE | 2017-07-19 18:35 | RAD ---
HISTORY: Epigastric pain COMPARISONS: January 30, 2017 VIEWS: Frontal supine and upright views of the abdomen. FINDINGS: BOWEL: There is a nonobstructive bowel gas pattern. There is a large amount of stool within the colon. CALCULI: There are no abnormal calculi. BONES AND SOFT TISSUES: There are no osseous abnormalities. OTHER FINDINGS: The lung bases are clear. There is no subphrenic gas. IMPRESSION: NONOBSTRUCTIVE BOWEL GAS PATTERN. LARGE AMOUNT OF STOOL WITHIN THE COLON.
[2017-07-19 18:50] LABS: EGFR Non-African American 33.2 (>60)
[2017-07-19] MEDS ORDERED: Lidocaine 2% VISCOUS* 15 ML UDC PO ONE (19:06)
[2017-07-19] MEDS ORDERED: Al Hydrox/Mg Hydrox/Simet LIQ* 30 ML UDC PO ONE (19:06)
[2017-07-19] MEDS ORDERED: HYDROmorphone INJ* 1 MG/ML CARPUJECT SYRINGE IV SLOW PU ONE (19:11)
[2017-07-19] MEDS ORDERED: HYDROmorphone INJ* 2 MG/ML CARPUJECT SYRINGE ONE (19:41)
[2017-07-19] MEDS ORDERED: O ndansetron ODT 4MG 2TAB PRPK 4 MG PAK PO ONE (20:33)
[2017-07-19 21:17] VITALS: BP 181/115
[2017-07-19 21:42] LABS: Urine Appearance Clear; Urine Blood Negative (Negative); Urine Color Yellow; Urine Ketones Negative (Negative); Urine Protein 3+(>=500 mg/dL) (Negative); Urine Specific Gravity 1.013 (1.010-1.030); Urine Urobilinogen Negative (Negative)
== END 2017-07-19 21:34 | disposition home or self-care (01) ==
LOC: ED 17:40
DX: R10.13 Epigastric pain (principal); R11.2 Nausea with vomiting, unspecified; E10.9 Type 1 diabetes mellitus without complications; Z72.0 Tobacco use
CPT/HCPCS: 36415; 74019; 80053; 81003; 81015; 83605; 83690; 85025; 86140; 87086; 96374; 96375; 99284; A9270-GY; J1170; J2270

== ENCOUNTER 2017-08-12 13:25 | Observation (INO) | payer OTHER ==
[2017-08-12] MEDS ORDERED: Ondansetron INJ* 2 MG/ML VIAL IV ONE (13:37)
[2017-08-12] MEDS ORDERED: Insulin REGULAR(*) 1 UNITS UNIT ONE (13:49)
[2017-08-12] MEDS: NS 0.9% 1000 ML* 3,000 ML IV ONE ×3 (13:54→16:38)
[2017-08-12] MEDS ORDERED: Insulin REGULAR(*) 1 UNITS UNIT IV PUSH ONE (14:01)
[2017-08-12] MEDS ORDERED: Morphine VIAL* 4 MG/ML VIAL (1 ml vial) IV ONE ×3 (14:01→20:39)
[2017-08-12] MEDS ORDERED: Ondansetron ODT TAB* 4 MG ONE (14:02)
[2017-08-12] MEDS: Ondansetron ODT TAB* 4 MG SL PRN ×2 (14:06→19:48)
--- NOTE | 2017-08-12 14:09 | RAD ---
HISTORY: Vomiting COMPARISONS: May 06, 2017 VIEWS: 1: frontal portable view of the chest at 1:40 PM FINDINGS: LINES AND TUBES: None. CARDIOMEDIASTINAL SILHOUETTE: The cardiomediastinal silhouette is normal for portable technique. PLEURA: The costophrenic angles are sharp. No pleural abnormalities are noted. LUNG PARENCHYMA: There is hyperinflation. ABDOMEN: The upper abdomen is clear. There is no subphrenic gas. BONES AND SOFT TISSUES: No bone or soft tissue abnormalities are noted. IMPRESSION: NO ACTIVE CARDIOPULMONARY DISEASE.
[2017-08-12 14:10] LABS: Urine Appearance Clear; Urine Blood Negative (Negative); Urine Color Straw; Urine Ketones 1+ (Negative); Urine Protein 2+(100 mg/dL) (Negative); Urine Urobilinogen Negative (Negative)
[2017-08-12 14:18] LABS: INR 0.83 (0.77-1.02)
[2017-08-12 14:21] LABS: ABS Basophils 0.1 10^3/ul (0-0.2); ABS Eosinophils 0 10^3/ul (0-0.6); ABS Lymphocytes 0.7 10^3/ul (1.0-4.8); ABS Monocytes 0.2 10^3/ul (0-0.8); ABS Neutrophils 13.6 10^3/ul (1.5-7.7); ABS Nucleated RBC 0 10^3/ul; Eosinophil % 0.2 % (0-6); Hematocrit 34 % (42-52); Lymphocyte % 4.5 % (25-47); Mean Corpuscular HGB Conc 33 g/dl (31-36); Mean Corpuscular Hemoglobin 28 pg (27-31); Mean Corpuscular Volume 85 fL (80-94); Mean Platelet Volume 8.3 um3 (7.4-10.4); Nucleated Red Blood Cells % 0.1; Platelet Count 543 10^3/ul (150-450); Red Blood Count 3.97 10^6/ul (4.0-5.4); Red Cell Distribution Width 13 % (10.5-15); White Blood Count 14.6 10^3/ul (3.5-10.8)
[2017-08-12 14:24] LABS: EGFR Non-African American 32.2 (>60)
[2017-08-12] MEDS ORDERED: Insulin IVPB 100 units/100 ml 100 UNITS/100 ML UNIT IVPB ONE (15:26)
[2017-08-12] MEDS ORDERED: Morphine VIAL* 4 MG/ML VIAL (1 ml vial) IV PRN (15:40)
[2017-08-12] MEDS ORDERED: Insulin IVPB 100 units/100 ml 100 UNITS/100 ML UNIT IVPB SCH ×2 (16:00→18:20)
[2017-08-12] MEDS ORDERED: NS 0.9% 250 ML* 250 ML IV SCH (16:00)
[2017-08-12 16:15] LABS: EGFR Non-African American 32.2 (>60)
[2017-08-12] MEDS ORDERED: NS 0.9% 1000 ML* 1,000 ML IV SCH (16:15)
--- NOTE | 2017-08-12 16:40 | RAD ---
CLINICAL HISTORY: Diffuse abdominal pain COMPARISON: May 12, 2017 TECHNIQUE: Multiple contiguous axial CT scans were obtained of the abdomen and pelvis, without intravenous contrast enhancement. Coronal and sagittal multiplanar reformations are submitted for review. Oral contrast was not administered. FINDINGS: The study is limited by the lack of intravenous contrast. This limits evaluation of the solid organs and vasculature. LUNG BASES: The lung bases are clear. LIVER: The liver is normal in shape, size, contour, and attenuation. BILE DUCTS: There is no intrahepatic or extrahepatic biliary dilatation. GALLBLADDER: The gallbladder is normal, without pericholecystic inflammatory change. PANCREAS: The pancreas is normal, without mass or ductal dilatation. SPLEEN: Normal in size and appearance. UPPER GI TRACT: Evaluation of the gastrointestinal tract is limited by incomplete gastric distention. The upper GI tract is unremarkable. SMALL BOWEL AND MESENTERY: The small bowel is normal in contour, course, and caliber. There is no obstruction or dilatation. COLON: The colon is normal in contour, course, caliber. There is no pericolonic inflammatory change. There is a tubular, vermiform, hollow viscus that is blind ending, and originates from the cecum, consistent with a normal appendix. There is no periappendiceal inflammatory change. This is best seen on coronal images 37 through 44. ADRENALS: Normal bilaterally. KIDNEYS: There is a punctate, 0.2 cm, calculus of the midpole of the right kidney. There is no hydronephrosis. No appreciable ureteral calculus is identified. BLADDER: The bladder is smooth in contour. PELVIC ORGANS: The prostate is diffusely mildly enlarged. The seminal vesicles are symmetric. AORTA: The aorta is normal. IVC: Unremarkable LYMPH NODES: There is no lymphadenopathy by size criteria. ABDOMINAL WALL: There is no evidence for abdominal wall hernia. BONES AND SOFT TISSUES: Unremarkable OTHER: None IMPRESSION: PUNCTATE NONOBSTRUCTING RIGHT RENAL CALYCEAL STONE. ENLARGED PROSTATE.
--- NOTE | 2017-08-12 17:57 | ED ---
Mary Sarkar Rebecca, scribed for Daniel Wong on 08/12/17 at 1342 . HPI Diabetic - HPI Summary HPI Summary: Pt is a 37 y/o M with a PMHx of DM BIBA who presents to ED c/o elevated BG, N/V and abdominal pain. Sx began this morning at 0400 and states he has been excessively vomiting since onset. Abdominal pain is in the epigastric region and is currently moderate, ranked 6/10. Sx aggravated by noncompliance with insulin, alleviated by nothing. Pt last used his long-acting insulin on Saturdays morning (2 day ago) as he has not been able to get to the pharmacy for a refill. Has been compliant with his Humalog. En route, his BG was read as "high" with EMS. Denies any alcohol or drug use. - History Of Current Complaint Chief Complaint: EDDiabeticProb Time Seen by Provider: 08/12/17 13:28 Hx Obtained From: Patient Onset/Duration: Lasting Hours, Still Present Severity Currently: Moderate - 6/10 Character: Alert, Other - Vomiting Aggravating: Non-compliant - Ran out of insulin Alleviating: Nothing Associated Signs & Symptoms: Abdominal Pain, Polydipsia, Vomiting Related History: DM I - Allergies/Home Medications Allergies/Adverse Reactions: Allergies Allergy/AdvReac Type Severity Reaction Status Date / Time gluten Allergy Abdominal Verified 07/19/17 17:52 Pain Home Medications: Home Medications Insulin Glargine,Hum.rec.anlog [Basaglar Noemiikpen] 25 unit SC DAILY 08/12/17 [ History Confirmed 08/12/17] Insulin LISPRO* [HumaLOG*] 0 units SUBCUT DIRECTED 08/12/17 [History Confirmed 08/12/17] Ondansetron TAB* [Zofran 4 MG Tab*] 4 mg PO Q6H PRN 08/12/17 [History Confirmed 08/12/17] QUEtiapine TAB* [Seroquel 100 MG *] 200 mg PO BEDTIME 08/12/17 [History Confirmed 08/12/17] PMH/Surg Hx/FS Hx/Imm Hx Endocrine/Hematology History: Reports: Hx Diabetes - Type 1 Denies: Hx Anticoagulant Therapy, Hx Thyroid Disease, Hx Anemia Cardiovascular History: Denies: Hx Hypertension, Hx Pacemaker/ICD, Hx Peripheral Vascular Disease, Other Cardiovascular Problems/Disorders Respiratory History: Reports: Hx Pneumonia Denies: Hx Asthma, Hx Chronic Bronchitis, Hx Chronic Obstructive Pulmonary Disease (COPD), Hx Cystic Fibrosis, Hx Lung Cancer, Hx Pleural Effusion, Hx Pulmonary Edema, Hx Pulmonary Embolism, Hx Seasonal Allergies, Hx Sleep Apnea, Other Respiratory Problems/Disorders GI History: Reports: Hx Gastroesophageal Reflux Disease, Hx Gastrointestinal Bleed, Hx Ulcer, Other GI Disorders - Gastroparesis Denies: Hx Cirrhosis, Hx Crohn's Disease, Hx Diverticulosis, Hx Gall Bladder Disease, Hx Hiatal Hernia, Hx Irritable Bowel, Hx Jaundice, Hx Obstructive Bowel , Hx Ileostomy, Hx Pyloric Stenosis History: Reports: Other Problems/Disorders - chronic kidney disease Denies: Hx Kidney Stones, Hx Renal Disease Musculoskeletal History: Denies: Hx Arthritis, Hx Osteoporosis Sensory History: Reports: Hx Vision Problem Denies: Hx Cataracts, Hx Contacts or Glasses, Hx Eye Injury, Hx Eye Prosthesis, Hx Glaucoma, Hx Macular Degeneration, Hx Deafness, Hx Hearing Aid, Hx Hearing Problem, Other Sensory Impairments Opthamlomology History: Reports: Hx Vision Problem Denies: Hx Cataracts, Hx Contacts or Glasses, Hx Eye Injury, Hx Eye Prosthesis, Hx Glaucoma, Hx Macular Degeneration, Other Sensory Impairments Neurological History: Reports: Hx Headaches Denies: Hx Dementia, Hx Seizures, Hx Transient Ischemic Attacks (TIA) Psychiatric History: Reports: Hx Anxiety, Hx Depression, Hx Inpatient Treatment , Hx Community Mental Health Tx, Hx Bipolar Disorder, Hx Substance Abuse Denies: Hx Eating Disorder, Hx Panic Disorder, Hx Post Traumatic Stress Disorder, Hx Schizophrenia, Hx of Violent Episodes Against Others, Other Psychiatric Issues/Disorders - Cancer History Hx Chemotherapy: No Hx Radiation Therapy: No - Surgical History Hx Anesthesia Reactions: No - Immunization History Date of Tetanus Vaccine: utd Date of Influenza Vaccine: no Infectious Disease History: No Infectious Disease History: Denies: Hx Hepatitis, Hx Human Immunodeficiency Virus (HIV), Hx of Known/ Suspected MRSA, Hx Shingles, Hx Tuberculosis, History Other Infectious Disease, Traveled Outside the [place] in Last 30 Days - Family History Known Family History: Negative: Cardiac Disease, Hypertension, Diabetes - Social History Alcohol Use: None Hx Substance Use: Yes Substance Use Type: Reports: Marijuana Substance Use Comment - Amount & Last Used: weekly Hx Tobacco Use: Yes Smoking Status (MU): Current Some Day Smoker Type: Cigarettes Amount Used/How Often: 1/2PPD a day and has smoked in the last 30 days Length of Time of Smoking/Using Tobacco: 20 years Have You Smoked in the Last Year: Yes Review of Systems Positive: Other - Elevated BG Positive: Abdominal Pain, Vomiting, Nausea All Other Systems Reviewed And Are Negative: Yes Physical Exam - Summary Physical Exam Summary: Appearance: Well appearing, no pain distress Skin: warm, dry, reflects adequate perfusion Head/face: normal Eyes: EOMI, SARAHY ENT: dry mucous membranes Neck: supple, non-tender Respiratory: CTA, breath sounds present Cardiovascular: Tachycardic, pulses symmetrical ~ Abdomen: mild tenderness in the epigastric area, soft Bowel: present Musculoskeletal: normal, strength/ROM intact Neuro: normal, sensory motor intact, A&Ox3 Triage Information Reviewed: Yes Vital Signs On Initial Exam: Initial Vitals Temp Pulse Resp BP Pulse Ox 97.5 F 132 20 190/109 100 08/12/17 13:26 08/12/17 13:26 08/12/17 13:26 08/12/17 13:26 08/12/17 13:26 Vital Signs Reviewed: Yes Diagnostics - Vital Signs Vital Signs Temp Pulse Resp BP Pulse Ox 08/12/17 13:26 97.5 F 132 20 190/109 100 - Laboratory Lab Results: Lab Results 08/12/17 08/12/17 08/12/17 Range/Units 13:30 13:56 13:56 WBC 14.6 H (3.5-10.8) 10^3/ul RBC 3.97 L (4.0-5.4) 10^6/ul Hgb 11.0 L (14.0-18.0) g/dl Hct 34 L (42-52) % MCV 85 (80-94) fL MCH 28 (27-31) pg MCHC 33 (31-36) g/dl RDW 13 (10.5-15) % Plt Count 543 H D (150-450) 10^3/ul MPV 8.3 (7.4-10.4) um3 Neut % (Auto) 93.3 H (38-83) % Lymph % (Auto) 4.5 L (25-47) % Wallace % (Auto) 1.5 (0-7) % Eos % (Auto) 0.2 (0-6) % Baso % (Auto) 0.5 (0-2) % Absolute Neuts (auto) 13.6 H (1.5-7.7) 10^3/ul Absolute Lymphs (auto) 0.7 L (1.0-4.8) 10^3/ul Absolute Monos (auto) 0.2 (0-0.8) 10^3/ul Absolute Eos (auto) 0 (0-0.6) 10^3/ul Absolute Basos (auto) 0.1 (0-0.2) 10^3/ul Absolute Nucleated RBC 0 10^3/ul Nucleated RBC % 0.1 INR (Anticoag Therapy) 0.83 (0.77-1.02) APTT 31.4 (26.0-36.3) seconds Sodium (139-145) mmol/L Potassium (3.5-5.0) mmol/L Chloride (101-111) mmol/L Carbon Dioxide (22-32) mmol/L Anion Gap (2-11) mmol/L BUN (6-24) mg/dL Creatinine (0.67-1.17) mg/dL Est GFR ( Amer) (>60) Est GFR (Non-Af Amer) (>60) BUN/Creatinine Ratio (8-20) Glucose (70-100) mg/dL POC Glucose (mg/dL) > 444 H* (70-100) mg/dL Lactic Acid (0.5-2.0) mmol/L Calcium (8.6-10.3) mg/dL Total Bilirubin (0.2-1.0) mg/dL AST (13-39) U/L ALT (7-52) U/L Alkaline Phosphatase (34-104) U/L Troponin I (<0.04) ng/mL Total Protein (6.4-8.9) g/dL Albumin (3.2-5.2) g/dL Globulin (2-4) g/dL Albumin/Globulin Ratio (1-3) Lipase (11.0-82.0) U/L Urine Color Urine Appearance Urine pH (5-9) Ur Specific Orestes (1.010-1.030) Urine Protein (Negative) Urine Ketones (Negative) Urine Blood (Negative) Urine Nitrate (Negative) Urine Bilirubin (Negative) Urine Urobilinogen (Negative) Ur Leukocyte Esterase (Negative) Urine WBC (Auto) (Absent) Urine RBC (Auto) (Absent) Urine Bacteria (Absent) Urine Glucose (Negative) 08/12/17 08/12/17 08/12/17 Range/Units 13:56 13:56 13:57 WBC (3.5-10.8) 10^3/ul RBC (4.0-5.4) 10^6/ul Hgb (14.0-18.0) g/dl Hct (42-52) % MCV (80-94) fL MCH (27-31) pg MCHC (31-36) g/dl RDW (10.5-15) % Plt Count (150-450) 10^3/ul MPV (7.4-10.4) um3 Neut % (Auto) (38-83) % Lymph % (Auto) (25-47) % Wallace % (Auto) (0-7) % Eos % (Auto) (0-6) % Baso % (Auto) (0-2) % Absolute Neuts (auto) (1.5-7.7) 10^3/ul Absolute Lymphs (auto) (1.0-4.8) 10^3/ul Absolute Monos (auto) (0-0.8) 10^3/ul Absolute Eos (auto) (0-0.6) 10^3/ul Absolute Basos (auto) (0-0.2) 10^3/ul Absolute Nucleated RBC 10^3/ul Nucleated RBC % INR (Anticoag Therapy) (0.77-1.02) APTT (26.0-36.3) seconds Sodium 121 L (139-145) mmol/L Potassium 4.5 (3.5-5.0) mmol/L Chloride 83 L (101-111) mmol/L Carbon Dioxide 15 L (22-32) mmol/L Anion Gap 23 H (2-11) mmol/L BUN 37 H (6-24) mg/dL Creatinine 2.31 H (0.67-1.17) mg/dL Est GFR ( Amer) 41.4 (>60) Est GFR (Non-Af Amer) 32.2 (>60) BUN/Creatinine Ratio 16.0 (8-20) Glucose 718 H* (70-100) mg/dL POC Glucose (mg/dL) (70-100) mg/dL Lactic Acid 3.9 H* (0.5-2.0) mmol/L Calcium 9.9 (8.6-10.3) mg/dL Total Bilirubin 0.60 (0.2-1.0) mg/dL AST 17 (13-39) U/L ALT 11 (7-52) U/L Alkaline Phosphatase 117 H (34-104) U/L Troponin I 0.00 (<0.04) ng/mL Total Protein 7.6 (6.4-8.9) g/dL Albumin 4.2 (3.2-5.2) g/dL Globulin 3.4 (2-4) g/dL Albumin/Globulin Ratio 1.2 (1-3) Lipase 54 (11.0-82.0) U/L Urine Color Straw Urine Appearance Clear Urine pH 6.0 (5-9) Ur Specific Orestes 1.020 (1.010-1.030) Urine Protein 2+(100 mg/dl) A (Negative) Urine Ketones 1+ A (Negative) Urine Blood Negative (Negative) Urine Nitrate Negative (Negative) Urine Bilirubin Negative (Negative) Urine Urobilinogen Negative (Negative) Ur Leukocyte Esterase Negative (Negative) Urine WBC (Auto) Trace(0-5/hpf) (Absent) Urine RBC (Auto) Trace(0-2/hpf) (Absent) Urine Bacteria Absent (Absent) Urine Glucose 3+(>=500 mg/dl) A (Negative) 08/12/17 08/12/17 Range/Units 15:07 15:19 WBC (3.5-10.8) 10^3/ul RBC (4.0-5.4) 10^6/ul Hgb (14.0-18.0) g/dl Hct (42-52) % MCV (80-94) fL MCH (27-31) pg MCHC (31-36) g/dl RDW (10.5-15) % Plt Count (150-450) 10^3/ul MPV (7.4-10.4) um3 Neut % (Auto) (38-83) % Lymph % (Auto) (25-47) % Wallace % (Auto) (0-7) % Eos % (Auto) (0-6) % Baso % (Auto) (0-2) % Absolute Neuts (auto) (1.5-7.7) 10^3/ul Absolute Lymphs (auto) (1.0-4.8) 10^3/ul Absolute Monos (auto) (0-0.8) 10^3/ul Absolute Eos (auto) (0-0.6) 10^3/ul Absolute Basos (auto) (0-0.2) 10^3/ul Absolute Nucleated RBC 10^3/ul Nucleated RBC % INR (Anticoag Therapy) (0.77-1.02) APTT (26.0-36.3) seconds Sodium 126 L (139-145) mmol/L Potassium 4.0 (3.5-5.0) mmol/L Chloride 90 L (101-111) mmol/L Carbon Dioxide 20 L (22-32) mmol/L Anion Gap 16 H (2-11) mmol/L BUN 36 H (6-24) mg/dL Creatinine 2.31 H (0.67-1.17) mg/dL Est GFR ( Amer) 41.4 (>60) Est GFR (Non-Af Amer) 32.2 (>60) BUN/Creatinine Ratio 15.6 (8-20) Glucose 465 H (70-100) mg/dL POC Glucose (mg/dL) > 444 H* (70-100) mg/dL Lactic Acid (0.5-2.0) mmol/L Calcium 9.0 (8.6-10.3) mg/dL Total Bilirubin (0.2-1.0) mg/dL AST (13-39) U/L ALT (7-52) U/L Alkaline Phosphatase (34-104) U/L Troponin I (<0.04) ng/mL Total Protein (6.4-8.9) g/dL Albumin (3.2-5.2) g/dL Globulin (2-4) g/dL Albumin/Globulin Ratio (1-3) Lipase (11.0-82.0) U/L Urine Color Urine Appearance Urine pH (5-9) Ur Specific Orestes (1.010-1.030) Urine Protein (Negative) Urine Ketones (Negative) Urine Blood (Negative) Urine Nitrate (Negative) Urine Bilirubin (Negative) Urine Urobilinogen (Negative) Ur Leukocyte Esterase (Negative) Urine WBC (Auto) (Absent) Urine RBC (Auto) (Absent) Urine Bacteria (Absent) Urine Glucose (Negative) Result Diagrams: 08/12/17 13:56 08/12/17 15:19 Lab Statement: Any lab studies that have been ordered have been reviewed, and results considered in the medical decision making process. - Radiology CXR Xray Interpretation: No Acute Changes - NO ACTIVE CARDIOPULMONARY DISEASE. ED physician reviewed this radiology report. Radiology Interpretation Completed By: Radiologist Diabetic Course/Dx - Course Assessment/Plan: Pt is a 37 y/o M with a PMHx of DM BIBA who presents to ED c/o elevated BG, N/V and moderate epigastric abdominal pain since this morning at 0400. Sx aggravated by noncompliance with insulin. Pt last used his long-acting insulin on Saturdays morning (2 day ago) as he has not been able to get to the pharmacy for a refill. Has been compliant with his Humalog. Blood work and UA were done. Results include a glucose of 718, lactic acid of 3.9, WBC of 14.6, RBC of 3.97 and alkaline phosphatase of 117. CXR reveals no acute findings. In the ED course, pt received morphine, insulin, zofran and fluids. Pt refused EKG. Patient is admitted to Dr. Bueno. - Diagnoses Differential Dx: Diabetic Ketoacidosis, Hyperglycemia, Hyperosmolar State, Pneumonia, Pyelonephritis, Sepsis Provider Diagnoses: DKA (diabetic ketoacidoses), Hyponatremia, Dehydration, Renal failure, Abdominal pain - Physician Notifications Discussed Care Of Patient With: Hannah Bueno - hospitalist Time Discussed With Above Provider: 16:35 Instructed by Provider To: Admit As Inpatient - Critical Care Time Critical Care Time: 30-74 min - 30 minutes Discharge - Sign-Out/Discharge Documenting (check all that apply): Discharge/Admit/Transfer - admit - Discharge Plan Condition: Stable Disposition: ADMITTED TO [facility] - Billing Disposition and Condition Condition: STABLE [place] [facility] [place] documentation as recorded by the Mary deutsch Rebecca accurately reflects the service I personally performed and the decisions made by Marvin mccarthy Emmanuel.
[2017-08-12] MEDS: Pantoprazole IV* 40 MG IV SCH (18:10)
[2017-08-12] MEDS ORDERED: Al Hydrox/Mg Hydrox/Simet LIQ* 30 ML UDC PO PRN (18:35)
[2017-08-12] MEDS ORDERED: hydrALAZINE IV* 20 MG/ML VIAL IV PRN (19:22)
[2017-08-12] MEDS ORDERED: D5NS 0.9% 1000 ML BAG* 1,000 ML IV SCH (19:30)
[2017-08-12] MEDS: D5W 1/2 NS 1000 ML BAG* 1,000 ML IV SCH (19:35)
[2017-08-12] MEDS ORDERED: QUEtiapine TAB* 100 MG PO SCH (21:00)
[2017-08-12] MEDS: Morphine VIAL* 4 MG/ML VIAL (1 ml vial) IV PRN (21:10)
[2017-08-12] MEDS ORDERED: Metoclopramide IV* 5 MG/ML 2 ML VIAL ONE (21:45)
[2017-08-12] MEDS: Metoclopramide IV* 5 MG/ML 2 ML VIAL IV PRN (21:47)
[2017-08-12] MEDS: NS 0.9% 1000 ML* 1,000 ML IV SCH ×2 (21:47→23:43)
--- NOTE | 2017-08-12 21:55 | HP ---
CC: Dr. De Paz; Dr. Edge * HISTORY AND PHYSICAL: DATE OF ADMISSION: 08/12/17 PRIMARY CARE PROVIDER: Dr. De Paz. CHIEF COMPLAINT: "Ran out of insulin." HISTORY OF PRESENT ILLNESS: Barron Simmons is a 37-year-old male who is known to us from multiple hospitalizations for uncontrolled diabetes, DKA as well as intractable abdominal pain who claims that he has celiac disease despite multiple investigations in the past and multiple endoscopies in the past that did not prove it. The patient stated that he ran out of insulin 2 days ago and he was not able to get to [facility] to have it refilled. He came into the hospital with DKA complaining of diffuse abdominal pain, which is a known chronic problem. He is going to be admitted with diagnosis of DKA to the intensive care unit. PAST MEDICAL HISTORY: 1. Diabetes type 1. 2. History of gastroparesis. 3. Depression. 4. History of PTSD. 5. History of chronic abdominal pain with narcotic use in the past. Once again , the patient claims that he has a history of celiac disease. 6. History of esophagitis with multiple biopsies, last one obtained in June 2017, which showed impression: "Squamous fragments with reactive atypia. Acute inflammation." The microbiology was unremarkable. 7. History of chronic kidney disease stage 3 with creatinine of 2.3 at baseline. This is likely due to diabetes. 8. History of bipolar affective disorder. 9. History of tobacco use and marijuana use. 10. History of nephrolithiasis. 11. History of diabetic nephropathy. 12. Peripheral neuropathy. 13. Proliferative diabetic retinopathy. CURRENT MEDICATIONS: Include: 1. Insulin lispro on a sliding scale. 2. Insulin Lantus 25 units daily. The patient has not been able to take it for the past 2 days. 3. Seroquel 200 mg at bedtime. 4. Zofran on a p.r.n. basis. ALLERGIES: GLUTEN. FAMILY HISTORY: Positive for mother with emphysema. Father, unknown. SOCIAL HISTORY: The patient lives with his in [place]. He is on disability as he stated. He smokes several cigarettes a day and uses marijuana almost on a daily basis. He denies any alcohol or drug use. His surrogate would be his mother, Verenice Andrew. REVIEW OF SYSTEMS: Positive for "terrible pain" in his abdomen. Despite that during the patient's evaluation, the patient has no problems with spontaneously going from a lying to sitting up position using his abdominal muscles without experiencing increased pain. The patient stated that he was not discharged from Dr. Edge's practice, but he "discharged himself since Dr. Edge was not agreeable to prescribe the patient narcotics."He stated he does not have problems with narcotics and he requested more medications since IV morphine is "not touching his pain." He denies any nausea and vomiting. He stated that he ate 4 eggs yesterday without any problems. The remaining 12 systems were reviewed with the patient and were otherwise negative. PHYSICAL EXAMINATION GENERAL: The patient is a very pleasant 37-year-old male who appears uncomfortable, but in no acute distress. The patient is alert and oriented x3. He is diaphoretic. VITAL SIGNS: Blood pressure of 183/116, heart rate of 119 and regular, respiratory rate 23, oxygen saturation 97% on room air, temperature of 97.5. HEENT: Head: Atraumatic, normocephalic. Eyes: Pupils are equal, reactive to light and accommodation. Oropharynx clear. Mucosa dry. NECK: Supple. No JVD. No bruits bilaterally. RESPIRATORY: Clear to auscultation bilaterally. CARDIOVASCULAR: Regular rate and rhythm. Tachycardia. No murmur. ABDOMEN: Soft, nontender. Bowel sounds are present in all 4 quadrants. Please also note that although the abdomen appears nontender during the evaluation, later on the patient starts complaining of abdominal pain again. EXTREMITIES: There is no edema. Pulses are +2 bilaterally. No clubbing or cyanosis. NEURO: Speech is clear. Cranial nerves II through XII grossly intact. Motor strength is 5/5 bilaterally. LABORATORY DATA/DIAGNOSTIC STUDIES: Laboratory data showed white blood cell count of 14.6, hemoglobin of 11.0, hematocrit of 34, MCV of 85, and platelets of 543,000. Sodium 126, potassium 4.0, chloride 90, carbon dioxide 20, BUN 36, creatinine 2.31. Anion gap was 16. Glucose level of 465. Calcium of 9.0. Liver function tests were unremarkable. Urinalysis, trace of ketones. CT of abdomen and pelvis is pending at the time of dictation. Abdominal x-ray shows "no active cardiopulmonary disease." Troponin was 0. ASSESSMENT AND PLAN: Barron Simmons is a 37-year-old male who presents once again with abdominal pain and diabetic ketoacidosis. At this point, the patient stated that he was unable to pick pulling machine tender his medication from [employer] in time. At this point, the patient is going to be placed in the intensive care unit, insulin and IV fluid resuscitation. We will follow up basic metabolic panels every 6 hours. 1. In regards to the patient's leukocytosis. Leukocytosis appears to be reactive. 2. In regards to the patient's abdominal pain. The patient claims he has celiac disease. Please note that his pathology never reported evidence of celiac disease in the recent years from multiple endoscopies. He always has gastritis. His immunology tests were negative for tissue transglutaminase IgG or IgA. Antigliadin antibodies were also negative that was reported on . I suspect that the patient may have a problem with narcotics from reviewing of the patient's prior medical history and I suggested for the patient referring him to pain management therapy. For the time being, I will place him on morphine on a p.r.n. basis and await his CT results. 3. The patient's chronic kidney disease stage 3 is with creatinine at baseline. This is due to diabetes. 4. For DVT prophylaxis, the patient is fully ambulatory. TIME SPENT: Approximately 62 minutes were spent on admission of this patient, more than half of that time was spent [id number] with the patient during the interview and physical exam. [id number]/[facility] #: [id number] MTDD
[2017-08-12] MEDS ORDERED: amLODIPine TAB* 5 MG PO ONE (22:00)
[2017-08-13] MEDS: Morphine VIAL* 4 MG/ML VIAL (1 ml vial) IV PRN ×3 (01:37→07:20)
[2017-08-13] MEDS: D5W 1/2 NS 1000 ML BAG* 1,000 ML IV SCH (01:50)
--- NOTE | 2017-08-13 04:09 | PN ---
Progress Note - Progress Note Date of Service: 08/13/17 Note: Nursing called reporting Mr Simmons was refusing further blood draws for monitoring of his electrolytes while managing his DKA. I spoke with him at the bedside explaining the importance of obtaining the lab work in maintaining the safety of his treatment. However, he continued to refuse. As such, he was advised that it was within his right to refuse any aspect of treatment. He was given the choice of consenting to the blood draw or having his narcotic pain medications cancelled. After a brief, vulgar explanation of his thoughts on that choice he did consent to having blood drawn.
[2017-08-13 04:13] LABS: EGFR Non-African American 42.4 (>60)
[2017-08-13] MEDS ORDERED: Insulin GLARGINE(*) 1 UNITS UNIT SUBCUT ONE (04:18)
[2017-08-13 05:49] LABS: EGFR Non-African American 42.4 (>60)
[2017-08-13] MEDS: Pantoprazole IV* 40 MG IV SCH (07:20)
[2017-08-13] MEDS ORDERED: Potassium Chlor TAB* 20 MEQ TAB.ER PO STA (07:31)
[2017-08-13] MEDS ORDERED: Calcium Gluconate INJ* 2 GM in NS 0.9% 100 ML* 100 ML IV ONE (07:32)
[2017-08-13] MEDS ORDERED: Magnesium Sulfate 2 GM IV* 2 GM/50 ML BAG IVPB ONE (07:33)
[2017-08-13] MEDS: Metoclopramide IV* 5 MG/ML 2 ML VIAL IV PRN (07:56)
[2017-08-13] MEDS ORDERED: Insulin LISPRO* 1 UNITS UNIT SUBCUT SCH ×2 (09:00)
[2017-08-13 10:45] LABS: EGFR Non-African American 42.4 (>60)
[2017-08-13 10:51] VITALS: BP 124/75
--- NOTE | 2017-08-14 12:01 | DS ---
Cc: Dr. Bueno; Dr. Wong; Dr. Genaro De Paz M.D. * DISCHARGE SUMMARY: DATE OF ADMISSION: 08/12/17 DATE OF DISCHARGE: 08/13/17 DISCHARGE DIAGNOSES: 1. Diabetic ketoacidosis, resolved likely due to noncompliance. 2. Chronic abdominal pain likely due to gastritis and/or gastroparesis; of note , the patient always claims he had celiac disease but per Dr. Bueno, there was no confirmation of celiac disease from a pathology biopsy done and his immunology tests were negative for tissue transglutaminase, IgG nor IgA. Anti- gliadin antibodies were also found to be negative on 05/12/17. 3. Chronic kidney disease. HISTORY OF PRESENT ILLNESS/HOSPITAL COURSE: The patient is a 37-year-old gentleman with multiple hospitalizations for uncontrolled diabetes and DKA as well as intractable abdominal pain due to patient's noncompliance. Despite multiple investigations in the past and multiple endoscopies in the past , he always claims that he has celiac disease but per Dr. Bueno's note this is really not so. The patient stated that he ran out of insulin 2 days prior and was not able to get to [facility] and have it refilled. He comes to the hospital today with DKA complaining of diffuse abdominal pain. He also malingers and constantly asks the staff any form or opiate to control his abdominal pain, despite multiple documentations of the misinformation that he gives other practitioners and his malingering behavior. Further more, when I visited him this morning, he mentions that he does not have any insurance and he does not have a jamie pass and he does not have any money for the pharmacy. His case was then referred to the social workers of his case who then confirmed that he has Medicaid available and he can have a Medicaid cab drive him to his pharmacy and they will pay for his necessary medication. The patient was then discharged and was reminded to follow up with his PCP within 3 days post discharge and if there any difficulty contacting his PCP to address any post discharge concern by calling the hospital and ask to be seen at [facility]. He has been advised to take his medications as prescribed. TIME SPENT: The total time spent evaluating patient, reviewing pertinent data and appropriate documentations is greater than 30 minutes. [id number]/[facility] #: [id number]
== END 2017-08-13 12:38 | disposition home or self-care (01) ==
LOC: ED 13:25 → ICU 16:12 → INTOOBSV 16:12
PROVIDERS: ADMIT Internal Medicine; ATTEND Student in an Organized Health Care Education/Training Program
DX: E11.10 Type 2 diabetes mellitus with ketoacidosis without coma (principal); R10.9 Unspecified abdominal pain; G89.29 Other chronic pain; N18.9 Chronic kidney disease, unspecified; F31.9 Bipolar disorder, unspecified; E11.319 Type 2 diabetes mellitus with unspecified diabetic retinopathy without macular edema; G62.9 Polyneuropathy, unspecified; Z79.899 Other long term (current) drug therapy; Z79.4 Long term (current) use of insulin; F17.210 Nicotine dependence, cigarettes, uncomplicated; F12.90 Cannabis use, unspecified, uncomplicated; N20.0 Calculus of kidney; N40.0 Benign prostatic hyperplasia without lower urinary tract symptoms
CPT/HCPCS: 36415; 71045; 74176; 80048; 80053; 81003; 81015; 83036; 83605; 83690; 83735; 84484; 85025; 85610; 85730; 87086; 87641; 96365; 96367; 96375; 96376; 99291; A9270-GY; G0378; J0360; J0610; J1815; J2270; J2765; J3475

== ENCOUNTER 2017-09-13 12:30 | Emergency (ER) | payer OTHER ==
[2017-09-13 12:43] VITALS: BP 127/90
--- NOTE | 2017-09-13 13:06 | UC ---
Skin Complaint HPI - HPI Summary HPI Summary: 37 yo male presents with right middle finger nailbed redness, pain, and swelling. He says about a week ago he developed a white pustule on the ulnar aspect of his right middle finger nailbed. He does admit to biting his fingernails at times. This white spot progressively enlarged and he developed redness around it with increasing pain. Currently denies fever, chills. - History of Current Complaint Chief Complaint: UCUpperExtremity Time Seen by Provider: 09/13/17 12:48 Stated Complaint: RED SWOLLEN FINGER TIP Hx Obtained From: Patient Onset/Duration: Gradual Onset Timing: Constant Onset Severity: Mild Current Severity: Moderate Pain Intensity: 5 Pain Scale Used: 0-10 Numeric - Allergy/Home Medications Allergies/Adverse Reactions: Allergies Allergy/AdvReac Type Severity Reaction Status Date / Time gluten Allergy Abdominal Verified 09/13/17 12:44 Pain Review of Systems Constitutional: Negative Skin: Other - White pustule and redness right middle finger nail Respiratory: Negative Cardiovascular: Negative Neurovascular: Negative Neurological: Negative Psychological: Negative All Other Systems Reviewed And Are Negative: Yes PMH/Surg Hx/FS Hx/Imm Hx Endocrine History: Diabetes GI/ History: Gastroesophageal Reflux Psychological History: Schizophrenia Other History Of: Negative For: Anticoagulant Therapy - Surgical History Surgical History: None - Family History Known Family History: Negative: Cardiac Disease, Hypertension, Diabetes Family History: NON CONTRIBUTORY - Social History Lives: With Family Alcohol Use: None Substance Use Type: Marijuana Substance Use Comment - Amount & Last Used: weekly Smoking Status (MU): Current Some Day Smoker Type: Cigarettes Amount Used/How Often: 1/2PPD a day and has smoked in the last 30 days Length of Time of Smoking/Using Tobacco: 20 years Have You Smoked in the Last Year: Yes When Did the Patient Quit Smoking/Using Tobacco: SMOKES MARIJUANA WELL Household Exposure Type: Cigarettes - Immunization History Most Recent Influenza Vaccination: Once many years ago Most Recent Tetanus Shot: 2009 Most Recent Pneumonia Vaccination: not received Physical Exam - Summary Physical Exam Summary: GENERAL: NAD. WDWN. No pain distress. SKIN: Right middle finger: At the ulnar aspect of the nail/skin fold there is a 1.0cm area of white pustule that is significantly TTP. Erythema surrounding this area. No streaking, bleeding, or drainage. NECK: Supple. Nontender. No lymphadenopathy. CHEST: No accessory muscle use. Breathing comfortably and in no distress. CV: RRR. Without m/r/g. NEURO: Alert. CN II-XII grossly intact. PSYCH: Age appropriate behavior. Triage Information Reviewed: Yes Vital Signs: Initial Vital Signs Temp 98 F 09/13/17 12:40 Pulse 102 09/13/17 12:40 Resp 20 09/13/17 12:40 BP 127/90 09/13/17 12:40 Pulse Ox 100 09/13/17 12:40 Course/Dx - Course Course Of Treatment: A time out was performed, witnessed, and signed. The area was cleansed with alcohol swab. A #11 was used to stephanie the nail/skin fold and copious purulent matter was able to be expressed. The area was bandaged with a band-aid. Pt tolerated procedure well. Reference #: [id number] - Diagnoses Provider Diagnoses: Paronychia right middle finger Discharge - Sign-Out/Discharge Documenting (check all that apply): Discharge/Admit/Transfer - Discharge Plan Condition: Stable Disposition: HOME Prescriptions: Cephalexin CAP* [Keflex CAP*] 500 mg PO BID #20 cap oxyCODONE/Acetamin 5/325 MG* [Percocet 5/325 TAB*] 1 tab PO BID PRN #8 tab MDD 2 PRN Reason: Pain Patient Education Materials: Paronychia (ED) Referrals: Genaro De Paz MD [Primary Care Provider] - Additional Instructions: If you develop a fever, shortness of breath, chest pain, new or worsening symptoms - please call your PCP or go to the ED. - Billing Disposition and Condition Condition: STABLE Disposition: Home
== END 2017-09-13 13:11 | disposition home or self-care (01) ==
LOC: UCEAST 12:30
DX: L03.011 Cellulitis of right finger (principal); Z91.018 Allergy to other foods; E11.9 Type 2 diabetes mellitus without complications; F20.9 Schizophrenia, unspecified; F17.210 Nicotine dependence, cigarettes, uncomplicated
CPT/HCPCS: 10060; 99212; G0463

== ENCOUNTER 2017-11-02 09:00 | Observation (INO) | payer OTHER ==
[2017-11-02] MEDS ORDERED: Ondansetron INJ* 2 MG/ML VIAL IV ONE (09:26)
[2017-11-02] MEDS ORDERED: NS 0.9% 1000 ML* 1,000 ML IV ONE ×2 (09:26→10:18)
[2017-11-02] MEDS ORDERED: HYDROmorphone INJ* 1 MG/ML CARPUJECT SYRINGE IV ONE (09:26)
--- NOTE | 2017-11-02 09:34 | ED ---
Abdominal Pain/Male - HPI Summary HPI Summary: The pt is a 37 y/o male with a MHx of gastrointestinal disorders BIB[place] [facility] c /o epigastric pain since 2 days ago worse today. The pain is rated 8/10 in severity. He notes nausea, loss of appetite, reduced bowel movements and emesis aggravated by food but denies dysuria. His blood blood glucose was reduced from 400mg to about 200mg en route. This is scribe Inna Zapata documenting for attending Naveed Stevenson MD. I, Naveed Stevenson MD, personally performed the services described in this documentation as scribed in my presence and it is both accurate and complete. - History of Current Complaint Chief Complaint: EDAbdPain Stated Complaint: ABD PAIN Time Seen by Provider: 11/02/17 09:12 Hx Obtained From: Patient Onset/Duration: Lasting Days - 2 days, Still Present, Worse Since - Today Severity Currently: Severe Pain Intensity: 8 Pain Scale Used: 0-10 Numeric Location: Epigastric Aggravating Factor(s): Food Associated Signs And Symptoms: Positive: Decreased Appetite, Nausea, Vomiting, Other - Positive: Decreased bowel movements Negative: Dysuria - Allergies/Home Medications Allergies/Adverse Reactions: Allergies Allergy/AdvReac Type Severity Reaction Status Date / Time gluten Allergy Abdominal Verified 09/13/17 12:44 Pain Home Medications: Home Medications Gabapentin CAP(*) [Neurontin 400 mg CAP(*)] 400 mg PO TID 11/02/17 [History Confirmed 11/02/17] Metoclopramide TAB* [Reglan TAB*] 10 mg PO BID PRN 11/02/17 [History Confirmed 11/02/17] PARoxetine HCL TAB* [Paxil TAB*] 20 mg PO DAILY 11/02/17 [History Confirmed ] amLODIPine TAB* [Norvasc 5 mg TAB*] 5 mg PO DAILY 11/02/17 [History Confirmed ] PMH/Surg Hx/FS Hx/Imm Hx Previously Healthy: No Endocrine/Hematology History: Reports: Hx Diabetes - Type 1 Denies: Hx Anticoagulant Therapy, Hx Blood Disorders, Hx Blood Transfusions, Hx Bone Marrow Disease, Hx Systemic Lupus Erythematosus, Hx Sickle Cell Disease , Hx Thyroid Disease, Hx Anemia, Hx Unexplained Bleeding, Other Endocrine/ Hematological Disorders Cardiovascular History: Denies: Hx Hypertension, Hx Pacemaker/ICD, Hx Peripheral Vascular Disease, Other Cardiovascular Problems/Disorders Respiratory History: Reports: Hx Pneumonia Denies: Hx Asthma, Hx Chronic Bronchitis, Hx Chronic Obstructive Pulmonary Disease (COPD), Hx Cystic Fibrosis, Hx Lung Cancer, Hx Pleural Effusion, Hx Pulmonary Edema, Hx Pulmonary Embolism, Hx Seasonal Allergies, Hx Sleep Apnea, Other Respiratory Problems/Disorders GI History: Reports: Hx Gastroesophageal Reflux Disease, Hx Gastrointestinal Bleed, Hx Ulcer, Other GI Disorders - Gastroparesis Denies: Hx Cirrhosis, Hx Crohn's Disease, Hx Diverticulosis, Hx Gall Bladder Disease, Hx Hiatal Hernia, Hx Irritable Bowel, Hx Jaundice, Hx Obstructive Bowel , Hx Ileostomy, Hx Pyloric Stenosis History: Reports: Other Problems/Disorders - chronic kidney disease Denies: Hx Acute Renal Failure, Hx Benign Prostatic Hyperplasia, Hx Chronic Renal Failure, Hx Dialysis, Hx Kidney Infection, Hx Kidney Stones, Hx Renal Disease Musculoskeletal History: Denies: Hx Arthritis, Hx Osteoporosis Sensory History: Reports: Hx Vision Problem Denies: Hx Cataracts, Hx Contacts or Glasses, Hx Eye Injury, Hx Eye Prosthesis, Hx Glaucoma, Hx Macular Degeneration, Hx Deafness, Hx Hearing Aid, Hx Hearing Problem, Other Sensory Impairments Opthamlomology History: Reports: Hx Vision Problem Denies: Hx Cataracts, Hx Contacts or Glasses, Hx Eye Injury, Hx Eye Prosthesis, Hx Glaucoma, Hx Macular Degeneration, Other Sensory Impairments Neurological History: Reports: Hx Headaches Denies: Hx Dementia, Hx Developmental Delay, Hx Migraine, Hx Nerve Disease, Hx Seizures, Hx Spinal Cord Injury, Hx Transient Ischemic Attacks (TIA), Other Neuro Impairments/Disorders Psychiatric History: Reports: Hx Anxiety, Hx Depression, Hx Inpatient Treatment , Hx Community Mental Health Tx, Hx Bipolar Disorder, Hx Substance Abuse Denies: Hx Attention Deficit Hyperactivity Disorder, Hx Eating Disorder, Hx Panic Disorder, Hx Post Traumatic Stress Disorder, Hx Schizophrenia, Hx Suicide Attempt, Hx of Violent Episodes Against Others, Other Psychiatric Issues/ Disorders - Cancer History Hx Chemotherapy: No Hx Radiation Therapy: No - Surgical History Hx Anesthesia Reactions: No - Immunization History Date of Tetanus Vaccine: utd Date of Influenza Vaccine: no Infectious Disease History: No Infectious Disease History: Denies: Hx Hepatitis, Hx Human Immunodeficiency Virus (HIV), Hx of Known/ Suspected MRSA, Hx Shingles, Hx Tuberculosis, History Other Infectious Disease, Traveled Outside the [place] in Last 30 Days - Family History Known Family History: Negative: Cardiac Disease, Hypertension, Diabetes Family History: NON CONTRIBUTORY - Social History Occupation: Disabled Lives: With Family Alcohol Use: None Hx Substance Use: Yes Substance Use Type: Reports: Marijuana Substance Use Comment - Amount & Last Used: weekly Hx Tobacco Use: Yes Smoking Status (MU): Current Some Day Smoker Type: Cigarettes Amount Used/How Often: 1/2PPD a day and has smoked in the last 30 days Length of Time of Smoking/Using Tobacco: 20 years Have You Smoked in the Last Year: Yes Review of Systems Positive: Abdominal Pain - At the epigastric , Vomiting, Nausea, Other - Positive: reduced bowel movements, loss of appetite Genitourinary: Negative - Dysuria All Other Systems Reviewed And Are Negative: Yes Physical Exam - Summary Physical Exam Summary: Appearance: The patient is well-nourished and is in severe pain distress. Skin: Dry mucous membranes; the skin is warm and dry; the skin color reflects adequate perfusion. HEENT: The head is normocephalic and atraumatic. The pupils are equal and reactive. The conjunctivae are clear and without drainage. Nares are patent and without drainage. Mouth reveals moist mucous membranes and the throat is without erythema and exudate. The external ears are intact. The ear canals are patent and without drainage. The tympanic membranes are intact. Neck: The neck is supple with full range of motion and non-tender. There are no carotid bruits. There is no neck vein distension. Respiratory: Chest is non-tender. Lungs are clear to auscultation and breath sounds are symmetrical and equal. Cardiovascular: Tachycardiac ; There is no murmur or rub auscultated. There is no peripheral edema and pulses are symmetrical and equal. Abdomen: The abdomen is soft and tender in the epigastric. There are hypoactive bowel sounds heard in all four quadrants and there is no organomegaly palpated. Musculoskeletal: There is no back tenderness noted. Extremities are non-tender with full range of motion. There is good capillary refill. There is no peripheral edema or calf tenderness elicited. Neurological: Patient is alert and oriented to person, place and time. The patient has symmetrical motor strength in all four extremities. Cranial nerves are grossly intact. Deep tendon reflexes are symmetrical and equal in all four extremities. Psychiatric: The patient has an appropriate affect and does not exhibit any anxiety or depression. Triage Information Reviewed: Yes Vital Signs On Initial Exam: Initial Vitals Temp Pulse Resp BP Pulse Ox 99.4 F 118 20 163/106 100 11/02/17 09:04 11/02/17 09:04 11/02/17 09:04 11/02/17 09:04 11/02/17 09:04 Vital Signs Reviewed: Yes Diagnostics - Vital Signs Vital Signs Temp Pulse Resp BP Pulse Ox 11/02/17 09:07 115 163/106 100 11/02/17 09:04 99.4 F 118 20 163/106 100 - Laboratory Result Diagrams: 11/02/17 09:29 11/02/17 09:29 Lab Statement: Any lab studies that have been ordered have been reviewed, and results considered in the medical decision making process. Abdominal Pain Fem Course/Dx - Course Course Of Treatment: Mr. Simmons presented to the emergency department with severe epigastric pain accompanied by 2 days of nausea and vomiting. He has a known history of gastroparesis and has presented thusly many times in the past. His labs revealed that he was significantly dehydrated this time and the hospitalists were asked to evaluate him for hydration. - Diagnoses Provider Diagnoses: Severe dehydration - Provider Notifications Discussed Care Of Patient With: Lucian Walker - Hospitalist Time Discussed With Above Provider: 11:30 Instructed by Provider To: MD Will See In ED Discharge - Sign-Out/Discharge Documenting (check all that apply): Patient Departure - Admit - Discharge Plan Condition: Stable Disposition: ADMITTED TO [facility] - Billing Disposition and Condition Condition: STABLE Disposition: Admitted to [facility]
[2017-11-02 09:39] LABS: ABS Basophils 0.1 10^3/ul (0-0.2); ABS Eosinophils 0 10^3/ul (0-0.6); ABS Lymphocytes 1.2 10^3/ul (1.0-4.8); ABS Monocytes 0.7 10^3/ul (0-0.8); ABS Neutrophils 14.3 10^3/ul (1.5-7.7); ABS Nucleated RBC 0 10^3/ul; Eosinophil % 0.1 % (0-6); Hematocrit 37 % (42-52); Hemoglobin 12.2 g/dl (14.0-18.0); Lymphocyte % 7.6 % (25-47); Mean Corpuscular HGB Conc 33 g/dl (31-36); Mean Corpuscular Hemoglobin 28 pg (27-31); Mean Corpuscular Volume 83 fL (80-94); Mean Platelet Volume 8.1 um3 (7.4-10.4); Nucleated Red Blood Cells % 0; Platelet Count 500 10^3/ul (150-450); Red Blood Count 4.43 10^6/ul (4.00-5.40); Red Cell Distribution Width 14 % (10.5-15); White Blood Count 16.3 10^3/ul (3.5-10.8)
[2017-11-02 09:54] LABS: EGFR Non-African American 22.2 (>60)
[2017-11-02] MEDS ORDERED: PROCHLORPERAZINE INJ 5 MG/ML 2 ML VIAL IV PRN (12:36)
[2017-11-02] MEDS ORDERED: HYDROmorphone INJ* 1 MG/ML CARPUJECT SYRINGE IV SLOW PU PRN (12:36)
[2017-11-02] MEDS ORDERED: Acetaminophen TAB* 325 MG PO PRN (12:36)
[2017-11-02] MEDS ORDERED: Dextrose 50% Syringe 50 ML* 25 GM/50 ML SYRINGE IV PUSH PRN (12:40)
[2017-11-02] MEDS ORDERED: NS 0.9% 1000 ML* 1,000 ML IV SCH (12:45)
[2017-11-02] MEDS ORDERED: hydrALAZINE IV* 20 MG/ML VIAL IV SLOW PU PRN ×2 (12:47→15:25)
[2017-11-02] MEDS: NS 0.9% 1000 ML* 2,000 ML IV ONE (12:52)
[2017-11-02] MEDS: Ondansetron INJ* 2 MG/ML VIAL IV PRN ×2 (12:54→20:58)
--- NOTE | 2017-11-02 13:16 | RAD ---
HISTORY: tachy, cough COMPARISONS: August 12 VIEWS: 1: frontal portable view of the chest at 12:50 PM FINDINGS: LINES AND TUBES: None. CARDIOMEDIASTINAL SILHOUETTE: The cardiomediastinal silhouette is normal for portable technique. PLEURA: The costophrenic angles are sharp. No pleural abnormalities are noted. LUNG PARENCHYMA: The lungs are clear. ABDOMEN: The upper abdomen is clear. There is no subphrenic gas. BONES AND SOFT TISSUES: No bone or soft tissue abnormalities are noted. A radiopaque foreign body is noted overlying the left lower neck. IMPRESSION: NO ACTIVE CARDIOPULMONARY DISEASE.
[2017-11-02 13:20] LABS: Urine Appearance Clear; Urine Blood Negative (Negative); Urine Color Straw; Urine Ketones Negative (Negative); Urine Protein 3+(>=500 mg/dL) (Negative); Urine Red Blood Cell Absent (Absent); Urine Specific Gravity 1.009 (1.010-1.030); Urine Urobilinogen Negative (Negative); Urine White Blood Cell Absent (Absent)
[2017-11-02 13:24] LABS: INR 0.9 (0.77-1.02)
[2017-11-02] MEDS: amLODIPine TAB* 5 MG PO SCH (15:00)
[2017-11-02] MEDS: Gabapentin CAP(*) 400 MG PO SCH ×2 (15:01→20:58)
[2017-11-02] MEDS: Pantoprazole IV* 40 MG IV SCH (15:01)
[2017-11-02] MEDS: Heparin VIAL(*) 5000 UNITS/ML VIAL (FIVE THOUSAND) SUBCUT SCH ×2 (15:02→22:19)
[2017-11-02] MEDS: Capsaicin 0.025% CREAM* 60 GM TOPICAL SCH (15:03)
--- NOTE | 2017-11-02 16:08 | RAD ---
CLINICAL HISTORY: abd pain COMPARISON: August 12, 2017 of December 05, 2013, ultrasound dated July 03, 2017 TECHNIQUE: Multiple contiguous axial CT scans were obtained of the abdomen and pelvis, without intravenous contrast enhancement. Coronal and sagittal multiplanar reformations are submitted for review. Oral contrast was not administered. FINDINGS: The study is limited by the lack of intravenous contrast. This limits evaluation of the solid organs and vasculature. LUNG BASES: The lung bases are clear. LIVER: There is low-attenuation lesion along the margin of the right lobe of liver. This is best seen on axial image 60. This measures 1.8 cm in size. BILE DUCTS: There is no intrahepatic or extrahepatic biliary dilatation. GALLBLADDER: The gallbladder is normal, without pericholecystic inflammatory change. PANCREAS: The pancreas is normal, without mass or ductal dilatation. SPLEEN: Normal in size and appearance. UPPER GI TRACT: Evaluation of the gastrointestinal tract is limited by incomplete gastric distention. The upper GI tract is unremarkable. SMALL BOWEL AND MESENTERY: The small bowel is normal in contour, course, and caliber. There is no obstruction or dilatation. COLON: The colon is normal in contour, course, caliber. There is no pericolonic inflammatory change. There is large amount of stool throughout the colon. ADRENALS: Normal bilaterally. KIDNEYS: There is a stable punctate right renal calyceal stone. There is no hydronephrosis. BLADDER: The bladder is smooth in contour. PELVIC ORGANS: The prostate is diffusely enlarged. The seminal vesicles are symmetric. AORTA: The aorta is normal. IVC: Unremarkable LYMPH NODES: There is no lymphadenopathy by size criteria. ABDOMINAL WALL: There is no evidence for abdominal wall hernia. BONES AND SOFT TISSUES: Unremarkable OTHER: None IMPRESSION: 1. STABLE RIGHT NEPHROLITHIASIS WITHOUT HYDRONEPHROSIS. 2. ENLARGED PROSTATE. 3. LARGE AMOUNT OF STOOL THROUGHOUT THE COLON. 4. 1.8 CM LOW-ATTENUATION LESION OF THE RIGHT LOBE OF LIVER. THIS IS INCOMPLETELY EVALUATED WITH NONCONTRAST CT. RECOMMEND FURTHER EVALUATION WITH MULTIPHASE CONTRAST-ENHANCED LIVER PROTOCOL CT, CONTRAST-ENHANCED MRI OF THE ABDOMEN, OR ULTRASOUND OF THE LIVER.
[2017-11-02] MEDS ORDERED: HYDROmorphone INJ1* 1 MG/ML SYRINGE ONE (17:07)
[2017-11-02] MEDS: Insulin LISPRO* 1 UNITS UNIT SUBCUT SCH ×2 (17:12→21:20)
[2017-11-02] MEDS: HYDROmorphone INJ1* 1 MG/ML SYRINGE IV SLOW PU PRN ×2 (17:18→21:15)
--- NOTE | 2017-11-02 17:57 | HP ---
CC: Dr. De Paz.* HISTORY AND PHYSICAL: DATE OF ADMISSION: 11/02/17. PRIMARY CARE PROVIDER: Dr. De Paz. ATTENDING PHYSICIAN WHILE IN THE HOSPITAL: Sylvia Vázquez MD * (report dictated by Delmar Ayala NP). CHIEF COMPLAINT: 1. Epigastric pain. 2. Nausea and vomiting. HISTORY OF PRESENT ILLNESS: Mr. Simmons is a 37-year-old male patient, well known to the hospital service for multiple admissions for abdominal pain and DKA. He is coming into the ED today stating that since he has had episodes where he has just been having continuous nausea and vomiting. He has had innumerable episodes, he does state that he smoked marijuana last week and he is describing sharp, stabbing, epigastric discomfort. He has had multiple upper endoscopies. He denies having any tarry stools. He states he had a bowel movement yesterday. There has been no coffee ground emesis. He has not been vomiting up any blood. He states he has not had any dysuria or frequency. He states he has been taking his insulin as prescribed. He states the pain has just been unrelenting. He has been having chills. He has not been feeling well. He has just been unable to tolerate or eat anything. He was concerned because the discomfort was not helping. He did say that warm showers do help occasionally. He came into the ED today for evaluation. He says that he really has not been able to eat or drink anything. He has not admitted to a documented fever but he states he has been under a significant amount of discomfort. He came into the emergency department today. He was evaluated and was noted to be in acute renal failure. He states that he does not feel distended. He states the pain has just become too great. He denied any chest pain or shortness of breath. No coughing. He was evaluated and was noted that he was in renal failure. He had an elevated white count and lactic was mildly elevated, he appeared to be dehydrated, and because of these findings, we were asked to evaluate for admission. PAST MEDICAL HISTORY: Significant for: 1. Diabetes. 2. Gastroparesis. 3. Depression. 4. PTSD. 5. Chronic abdominal pain. Again, he had multiple endoscopies, most recently he had one in June of this year, just 4 months ago, which showed distal esophagitis, status post biopsies and brushings. 6. He does have a history of CKD stage 3, baseline creatinine is around 2.3. 7. He has a history of bipolar disorder. 8. History of tobacco abuse and marijuana abuse. 9. History of nephrolithiasis. 10. Diabetic nephropathy. 11. Diabetic neuropathy. 12. Diabetic retinopathy. PAST SURGICAL HISTORY: Denied, with the exception that he has had multiple endoscopies which have again most recently in June showed squamous fragments of reactive atypia, acute inflammation, microbiology was unremarkable that was in the path report from his last endoscopy, but no other surgeries. HOME MEDICATIONS: His home medications according to Jimmy includes: 1. Amlodipine 5 mg daily. 2. mg daily. 3. Gabapentin 400 mg p.o. t.i.d. 4. Prilosec 20 mg daily. 5. Lispro sliding scale as directed. 6. Insulin glargine 25 units subcu daily. 7. Seroquel 200 mg at bedtime. 8. Reglan 10 mg p.o. t.i.d. as needed. ALLERGIES: He does have an allergy he states to GLUTEN, however, looking back in the past, he had immunology tests that were negative for tissue transglutaminase and he had antigliadin antibodies which were negative in April of this year. FAMILY HISTORY: His mother had history of COPD and CVA. Father's history is unknown. SOCIAL HISTORY: He is a half pack a day smoker. He does smoke marijuana routinely. He does not drink alcohol. Surrogate decision maker is unknown. He is . REVIEW OF SYSTEMS: There is no documented fever, but he did admit to having chills. He denied having any significant weight changes. There was no double vision. He denied having any ear discharge. There was no rhinorrhea. No sore throat. No thyroid enlargement. He denied any chest pain. There is no orthopnea. There is no nocturnal dyspnea. He denied having any shortness of breath. There is abdominal discomfort. There is nausea and vomiting. No dysuria. No frequency. No seizure. No loss of conscious. No pruritus. No skin ulcerations. Review of 14 systems was completed, all others negative. PHYSICAL EXAMINATION GENERAL: At this time, Mr. Simmons is a 37-year-old male patient. He is sitting in the ED stretcher. He does appear to be in a fair amount of pain. He does not appear to be in any acute distress. VITAL SIGNS: Blood pressure is now 170/102, pulse when I was there was from one teens to 120s, O2 sat 99%, temperature 99.4. HEENT: Head: Atraumatic, normocephalic. Eyes: EOMs are intact. Sclerae anicteric and not pale. Oral mucosa appears to be dry. No oropharyngeal erythema. NECK: Supple. LUNGS: Clear to auscultation bilaterally. No wheezes, rales or rhonchi. HEART: Sounds S1, S2. He is tachycardic. ABDOMEN: Soft, it was flat. It was nondistended. There was tenderness in the epigastric area. EXTREMITIES: Pulses were 2+ throughout. He had no peripheral edema. He is moving all 4 extremities with 5/5 strength. NEUROLOGICAL: He is awake, alert. He is oriented x3. Tongue midline. Hospital Account Manager were equal. No gross focal deficits. SKIN: Grossly intact. DIAGNOSTIC STUDIES/LAB DATA: WBC of 16.3, RBC of 4.42, hemoglobin of 12.2, hematocrit of 37, platelet count of 500. His sodium was 127, potassium was 3.6 , chloride was 93, bicarb 17, BUN 43, creatinine 3.18. Again, his baseline typically is around 2.3, but had been improved at 1.8. Glucose 242, lactic 3.5 , calcium 10.1, total bilirubin 0.6, AST 35, ALT 17, alk phos 115, CRP 1.6, albumin of 4.5. Old medical records reviewed. Again, he had an abdominal pelvis CT done 3 months ago, impression: "punctate nonobstructive right renal stone, enlarged prostate." Old medical records reviewed. ASSESSMENT AND PLAN: Mr. Simmons is a 37-year-old male patient well known to the hospitalist service from multiple admissions for chronic abdominal pain. Today , he was noted to be acute renal failure, we were asked to evaluate for admission. He will be admitted under observation status for: 1. Abdominal pain. At this point, again, it could be exacerbation of his chronic abdominal discomfort. I do question if he has cyclic vomiting syndrome from chronic marijuana use. I am going to go ahead and put capsaicin cream on his abdomen and see if this helps, as he does say warm showers have helped him in the past. I will place him on Dilaudid as needed, IV Protonix, clear liquid diet. I am getting a CT of the abdomen and pelvis, and hydrate him aggressively. He has got 2 L of fluid already. I will give him another 2 L and we will continue to follow. 2. Elements of systemic inflammatory response syndrome: I do not say that he has sepsis because I do not have an obvious source of infection. The patient is tachycardic which could be pain related. In addition, he has had a white count which could be reactive from the nausea and vomiting and he has a little bit of an elevated lactic acid, again it could be secondary to the fact he is pretty dehydrated. The plan would be to go ahead and repeat the lactic, santamaria culture the patient, get the CT of the abdomen and pelvis. If he spikes fever or has obvious infection then I certainly will put him on antibiotics I am holding at this point. Santamaria culturing to see if the source presents itself and we will continue to follow this. 3. Acute on chronic kidney failure. Again, I suspect this is probably prerenal from dehydration. I am sending off a FENa, we are getting a CT abdomen and pelvis to look for any obstructive uropathy and we will get UA, FENa , hydrate the patient, follow his BMPs every 6 hours given the fact that he has a low bicarb which is probably from the vomiting and the fact that he also had a low sodium which is probably dehydration and I want to follow these closely. So we are going to go ahead and repeat BMP in about 5 hours from now and we will continue to monitor. 4. Diabetes, we will put him on Lispro sliding scale and Lantus. 5. History of gastroparesis, when his taking p.o., we will get him back on his Reglan, but at this point we will go ahead and continue Compazine and p.r.n. Zofran. 6. Depression, with a history of posttraumatic stress disorder and bipolar, continue meds as prescribed. 7. History of esophagitis. I will put him on IV PPI. 8. Chronic abdominal pain. I do recommend that the patient sees Pain Management , but at this point, I want to make sure there is no acute illness is going on. I will continue to follow. 9. History of tobacco and marijuana abuse. I again offered smoking cessation and counseling. 10. History of diabetic neuropathy, continue his gabapentin. 11. Nephropathy, again continue with diabetes control. We will go ahead and hydrate and follow. 12. History of retinopathy, follow his PCP. 13. DVT prophylaxis, he is at moderate risk. I put him on heparin subcu. 14. Code Status: Full code. 15. Fluids, electrolytes, and nutrition: He can have clear liquid diet. TIME SPENT ON ADMISSION: Sixty minutes, greater than half time was spent face- to- face with the patient, obtaining my history and physical, the other half time was spent going over the plan of care with the patient and implementing the plan of care. I did discuss the plan of care with my attending, Dr. Vázquez, she is in agreement. DELMAR AYALA NP [id number]/[facility] #: [id number]
[2017-11-02 18:03] LABS: EGFR Non-African American 26.9 (>60)
[2017-11-02] MEDS: QUEtiapine TAB* 100 MG PO SCH (20:58)
[2017-11-03] MEDS: HYDROmorphone INJ1* 1 MG/ML SYRINGE IV SLOW PU PRN ×2 (04:38→09:14)
[2017-11-03] MEDS: Heparin VIAL(*) 5000 UNITS/ML VIAL (FIVE THOUSAND) SUBCUT SCH ×3 (05:08→21:33)
[2017-11-03 07:55] LABS: ABS Basophils 0.1 10^3/ul (0-0.2); ABS Eosinophils 0.2 10^3/ul (0-0.6); ABS Lymphocytes 2.3 10^3/ul (1.0-4.8); ABS Monocytes 0.8 10^3/ul (0-0.8); ABS Neutrophils 4.7 10^3/ul (1.5-7.7); ABS Nucleated RBC 0 10^3/ul; Eosinophil % 2.2 % (0-6); Hematocrit 29 % (42-52); Hemoglobin 9.6 g/dl (14.0-18.0); Lymphocyte % 29.1 % (25-47); Mean Corpuscular HGB Conc 33 g/dl (31-36); Mean Corpuscular Hemoglobin 28 pg (27-31); Mean Corpuscular Volume 83 fL (80-94); Mean Platelet Volume 7.2 um3 (7.4-10.4); Nucleated Red Blood Cells % 0; Platelet Count 331 10^3/ul (150-450); Red Blood Count 3.45 10^6/ul (4.00-5.40); Red Cell Distribution Width 14 % (10.5-15)
[2017-11-03] MEDS: Insulin LISPRO* 1 UNITS UNIT SUBCUT SCH ×4 (07:59→21:30)
[2017-11-03 08:01] LABS: INR 0.92 (0.77-1.02)
[2017-11-03 08:13] LABS: EGFR Non-African American 28.3 (>60)
[2017-11-03] MEDS ORDERED: Insulin GLARGINE(*) 1 UNITS UNIT SUBCUT SCH ×2 (09:00→21:00)
[2017-11-03] MEDS: Pantoprazole IV* 40 MG IV SCH (09:04)
[2017-11-03] MEDS: Gabapentin CAP(*) 400 MG PO SCH ×3 (09:04→21:31)
[2017-11-03] MEDS: amLODIPine TAB* 5 MG PO SCH (09:04)
[2017-11-03] MEDS: Capsaicin 0.025% CREAM* 60 GM TOPICAL SCH (09:05)
[2017-11-03] MEDS: PARoxetine HCL TAB* 20 MG PO SCH (09:05)
--- NOTE | 2017-11-03 11:51 | PN ---
Subjective Date of Service: 11/03/17 Interval History: Feeling better, no emesis today. He only smokes marijuana occasionally. Objective Active Medications: Acetaminophen (Tylenol Tab*) 650 mg PO Q4H PRN PRN Reason: FEVER/PAIN Amlodipine Besylate (Norvasc Tab*) 5 mg PO DAILY [facility] Last Admin: 11/03/17 09:04 Dose: 5 mg Capsaicin (Zostrix 0.025% Cream*) 1 applic TOPICAL DAILY [facility] Last Admin: 11/03/17 09:05 Dose: Not Given Dextrose (D50w Syringe 50 Ml*) 12.5 gm IV PUSH .FOR FS < 60 - SS PRN PRN Reason: FS < 60 Gabapentin (Neurontin Cap(*)) 400 mg PO TID [facility] Last Admin: 11/03/17 09:04 Dose: 400 mg Heparin Sodium (Porcine) (Heparin Vial(*)) 5,000 units SUBCUT Q8HR [facility] Last Admin: 11/03/17 05:08 Dose: Not Given Hydralazine HCl (Apresoline Iv*) 5 mg IV SLOW PU Q6H PRN PRN Reason: BLOOD PRESSURE Hydromorphone HCl (Dilaudid Inj1s*) 1 mg IV SLOW PU Q4H PRN PRN Reason: PAIN Last Admin: 11/03/17 09:14 Dose: 1 mg Potassium Chloride/Sodium Chloride (Ns 0.9% W/ 20 Meq Kcl 1000 Ml*) 1,000 mls @ 100 mls/hr IV PER RATE [facility] Insulin Glargine (Lantus(*)) 25 units SUBCUT DAILY [facility] Last Admin: 11/03/17 09:05 Dose: Not Given Insulin Human Lispro (Humalog*) 0 units SUBCUT ACHS [facility]; Protocol Last Admin: 11/03/17 07:59 Dose: Not Given Metoclopramide HCl (Reglan Tab*) 10 mg PO TID [facility] Non-Formulary Medication (Omeprazole [Omeprazole]) 20 mg PO DAILY [facility] Ondansetron HCl (Zofran Inj*) 4 mg IV Q6H PRN PRN Reason: NAUSEA Last Admin: 11/02/17 20:58 Dose: 4 mg Paroxetine HCl (Paxil Tab*) 20 mg PO DAILY [facility] Last Admin: 11/03/17 09:05 Dose: Not Given Prochlorperazine Edisylate (Compazine Inj*) 10 mg IV Q6H PRN PRN Reason: NAUSEA/VOMITING Last Admin: 11/02/17 15:02 Dose: 10 mg Quetiapine Fumarate (Seroquel Tab*) 200 mg PO BEDTIME [facility] Last Admin: 11/02/17 20:58 Dose: 200 mg Vital Signs - 8 hr 11/03/17 11/03/17 11/03/17 04:30 04:38 06:22 Temperature 98.6 F Pulse Rate 94 Respiratory 20 24 18 Rate Blood Pressure 132/76 (mmHg) O2 Sat by Pulse 100 Oximetry 11/03/17 11/03/17 11/03/17 08:14 09:04 09:14 Temperature 98.2 F Pulse Rate 93 Respiratory 20 14 14 Rate Blood Pressure 131/78 (mmHg) O2 Sat by Pulse 100 Oximetry 11/03/17 11/03/17 10:20 11:30 Temperature Pulse Rate Respiratory 14 16 Rate Blood Pressure (mmHg) O2 Sat by Pulse Oximetry Oxygen Devices in Use Now: None Appearance: Alert, standing by his bed. In good spirits. Looks comfortable. Eyes: No Scleral Icterus Extremities: No Edema, No Clubbing, Cyanosis, - Skin: No Rash or Ulcers, No Nodules or Sclerosis, - Neurological: Alert and Oriented x 3, NL Sensation Result Diagrams: 11/03/17 07:45 11/03/17 07:45 Assess/Plan/Problems-Billing Assessment: - Patient Problems (1) Erosive esophagitis Current Visit: No Status: Chronic Priority: Medium Onset Date: 11/10/13 Code(s): K22.10 - ULCER OF ESOPHAGUS WITHOUT BLEEDING SNOMED Code(s): 00644542 (2) Gastroparesis Current Visit: No Status: Chronic Priority: Medium Code(s): K31.84 - GASTROPARESIS SNOMED Code(s): 339910397 Comment: Resume metoclopramide. 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 Lispro [address] SS[address] Fup Dr[address] De Paz. (4) Acute on chronic kidney failure Current Visit: Yes Status: Acute Code(s): N17.9 - ACUTE KIDNEY FAILURE, UNSPECIFIED; N18.9 - CHRONIC KIDNEY DISEASE, UNSPECIFIED SNOMED Code(s): 275293217 Comment: Continue IV fluids until 11/04, BMP 11/04. I told the patient to discuss outpt nephrology consultation. He has a jug at home for 24 hr urine collection which he will do after discahrge.
[2017-11-03] MEDS: Metoclopramide TAB* 10 MG PO SCH ×2 (12:19→21:31)
[2017-11-03] MEDS: NS 0.9% w/ 20 Meq KCL 1000 ML* 1,000 ML IV SCH ×2 (12:26→22:42)
[2017-11-03] MEDS ORDERED: oxyCODONE TAB* 5 MG TAB PO PRN (12:35)
[2017-11-03] MEDS: oxyCODONE TAB* 5 MG TAB PO PRN (15:58)
[2017-11-03] MEDS: QUEtiapine TAB* 100 MG PO SCH (21:32)
[2017-11-04] MEDS: Heparin VIAL(*) 5000 UNITS/ML VIAL (FIVE THOUSAND) SUBCUT SCH (05:40)
[2017-11-04 06:32] LABS: EGFR Non-African American 28.4 (>60)
[2017-11-04 07:48] VITALS: BP 138/85
[2017-11-04] MEDS: Insulin LISPRO* 1 UNITS UNIT SUBCUT SCH ×2 (07:48→11:56)
[2017-11-04] MEDS: Capsaicin 0.025% CREAM* 60 GM TOPICAL SCH (07:49)
[2017-11-04] MEDS: PARoxetine HCL TAB* 20 MG PO SCH (07:49)
[2017-11-04] MEDS: Metoclopramide TAB* 10 MG PO SCH (08:06)
[2017-11-04] MEDS: Gabapentin CAP(*) 400 MG PO SCH (08:07)
[2017-11-04] MEDS: amLODIPine TAB* 5 MG PO SCH (08:08)
[2017-11-04] MEDS: oxyCODONE TAB* 5 MG TAB PO PRN (08:08)
[2017-11-04] MEDS ORDERED: Omeprazole CAP* 20 MG PO SCH (09:00)
--- NOTE | 2017-11-04 13:26 | DS ---
DATE OF ADMISSION: 11/02/2017. DATE OF DISCHARGE: 11/04/2017. HISTORY OF PRESENT ILLNESS: This 37-year-old man was admitted with epigastric pain, nausea, and vomiting. He has known diabetic gastroparesis and has been hospitalized for this in the past. There was some question about marijuana use. He says he does not smoke marijuana much at all. He says he cannot afford it. He did not run out of his Metoclopramide, not clear why he has his exacerbations; however, he was treated conservatively in the hospital. He was given intravenous fluids, antiemetics. His Metoclopramide was reinstated. He did quite well. He did have some low blood sugar on the morning of discharge, although he was asymptomatic. He notes that he got a very skimpy supper the night before, I am not sure why that was. The patient seems well aware of all of his medications and should be able to take care of his medical condition, although there has been some question about this in the past. He has a lot of services. I told him to ask his primary care , Dr. De Paz, about referal to a chief information officer, which he was happy to do. He already had a 24 hour urine collection ordered by Dr. De Paz and the patient says he has his jug at home and will do that this week. FINAL DIAGNOSES: 1. Diabetes with gastroparesis. 2. PTSD and depression. 3. Chronic kidney disease. DISCHARGE MEDICATIONS: 1. Omeprazole 20 mg daily. 2. Lispro insulin as prescribed. 3. Quetiapine 200 mg at bedtime. 4. Amlodipine 5 mg daily. 5. Paroxetine 20 mg daily. 6. Gabapentin 400 mg t.i.d. 7. Lantus insulin 23 units daily. 8. Metoclopramide 10 mg t.i.d. scheduled. This is a new dosage recommendation. DISCHARGE CONDITION: Improved. DISCHARGE DISPOSITION: Discharge to home with follow-up by Dr. De Paz. [id number]/[facility] #: [id number] DESHAUN
[2017-11-04] MEDS ORDERED: Insulin GLARGINE(*) 1 UNITS UNIT SUBCUT SCH (21:00)
== END 2017-11-04 12:21 | disposition home or self-care (01) ==
LOC: ED 09:00 → MEDTELE 12:36
PROVIDERS: ADMIT Internal Medicine; ATTEND Internal Medicine
DX: E10.43 Type 1 diabetes mellitus with diabetic autonomic (poly)neuropathy (principal); K31.84 Gastroparesis; F43.10 Post-traumatic stress disorder, unspecified; N18.9 Chronic kidney disease, unspecified; N17.9 Acute kidney failure, unspecified; K22.10 Ulcer of esophagus without bleeding; R10.9 Unspecified abdominal pain; R11.2 Nausea with vomiting, unspecified; Z72.0 Tobacco use; E86.0 Dehydration; X58.XXXA Exposure to other specified factors, initial encounter; Y92.9 Unspecified place or not applicable
CPT/HCPCS: 36415; 71045; 74176; 80048; 80053; 81003; 81015; 82570; 82947; 83605; 83690; 84300; 85025; 85610; 85730; 86140; 87040; 96365; 96375; 99284; A9270-GY; G0378; J0360; J0780; J1170; J1644; J2405

== ENCOUNTER → 2017-11-14 10:02 | Emergency (ER) | payer OTHER ==
[~2017-11-14 10:02] MED LIST changes: +Acetaminophen TAB* 325 MG PO ONE; +Ketorolac INJ* 30 MG/ML 1 ML VIAL IM ONE; +NS 0.9% 1000 ML* 1,000 ML IV ONE; -NS 0.9% 1000 ML* 2,000 ML IV ONE; -Pantoprazole IV* 40 MG IV ONE
--- NOTE | 2017-11-14 10:25 | ED ---
Abdominal Pain/Male - HPI Summary HPI Summary: This patient is a 37 year old M presenting to [facility] with a chief complaint of 10/10 epigastric/periumbilical abd pain since this AM. He endorses N/V, with 2x emetic episodes this AM, along with dry-heaving. Pt denies diarrhea. Pt is a current light smoker, endorses marijuana use, and denies using other substances. PMHx gastroparesis. - History of Current Complaint Chief Complaint: EDAbdPain Stated Complaint: ABD PAIN Time Seen by Provider: 11/14/17 10:13 Hx Obtained From: Patient Onset/Duration: Sudden Onset, Lasting Hours, Still Present Timing: Constant Severity Initially: Severe Severity Currently: Severe Pain Intensity: 10 Pain Scale Used: 0-10 Numeric Location: Epigastric, Umbilical Radiates: No Character: Sharp Aggravating Factor(s): Nothing Alleviating Factor(s): Nothing Associated Signs And Symptoms: Positive: Nausea, Vomiting. Negative: Fever, Diarrhea - Allergies/Home Medications Allergies/Adverse Reactions: Allergies Allergy/AdvReac Type Severity Reaction Status Date / Time gluten Allergy Abdominal Verified 11/14/17 10:05 Pain PMH/Surg Hx/FS Hx/Imm Hx Endocrine/Hematology History: Reports: Hx Diabetes - Type 1 Denies: Hx Anticoagulant Therapy, Hx Blood Disorders, Hx Blood Transfusions, Hx Bone Marrow Disease, Hx Systemic Lupus Erythematosus, Hx Sickle Cell Disease , Hx Thyroid Disease, Hx Anemia, Hx Unexplained Bleeding, Other Endocrine/ Hematological Disorders Cardiovascular History: Denies: Hx Hypertension, Hx Pacemaker/ICD, Hx Peripheral Vascular Disease, Other Cardiovascular Problems/Disorders Respiratory History: Reports: Hx Pneumonia Denies: Hx Asthma, Hx Chronic Bronchitis, Hx Chronic Obstructive Pulmonary Disease (COPD), Hx Cystic Fibrosis, Hx Lung Cancer, Hx Pleural Effusion, Hx Pulmonary Edema, Hx Pulmonary Embolism, Hx Seasonal Allergies, Hx Sleep Apnea, Other Respiratory Problems/Disorders GI History: Reports: Hx Gastroesophageal Reflux Disease, Hx Gastrointestinal Bleed, Hx Ulcer, Other GI Disorders - Gastroparesis Denies: Hx Cirrhosis, Hx Crohn's Disease, Hx Diverticulosis, Hx Gall Bladder Disease, Hx Hiatal Hernia, Hx Irritable Bowel, Hx Jaundice, Hx Obstructive Bowel , Hx Ileostomy, Hx Pyloric Stenosis History: Reports: Other Problems/Disorders - chronic kidney disease Denies: Hx Acute Renal Failure, Hx Benign Prostatic Hyperplasia, Hx Chronic Renal Failure, Hx Dialysis, Hx Kidney Infection, Hx Kidney Stones, Hx Renal Disease Musculoskeletal History: Denies: Hx Arthritis, Hx Osteoporosis Sensory History: Reports: Hx Vision Problem Denies: Hx Cataracts, Hx Contacts or Glasses, Hx Eye Injury, Hx Eye Prosthesis, Hx Glaucoma, Hx Macular Degeneration, Hx Deafness, Hx Hearing Aid, Hx Hearing Problem, Other Sensory Impairments Opthamlomology History: Reports: Hx Vision Problem Denies: Hx Cataracts, Hx Contacts or Glasses, Hx Eye Injury, Hx Eye Prosthesis, Hx Glaucoma, Hx Macular Degeneration, Other Sensory Impairments EENT History: Denies: Hx Deafness Neurological History: Reports: Hx Headaches Denies: Hx Dementia, Hx Developmental Delay, Hx Migraine, Hx Nerve Disease, Hx Seizures, Hx Spinal Cord Injury, Hx Transient Ischemic Attacks (TIA), Other Neuro Impairments/Disorders Psychiatric History: Reports: Hx Anxiety, Hx Depression, Hx Inpatient Treatment , Hx Community Mental Health Tx, Hx Bipolar Disorder, Hx Substance Abuse Denies: Hx Attention Deficit Hyperactivity Disorder, Hx Eating Disorder, Hx Panic Disorder, Hx Post Traumatic Stress Disorder, Hx Schizophrenia, Hx Suicide Attempt, Hx of Violent Episodes Against Others, Other Psychiatric Issues/ Disorders - Cancer History Hx Chemotherapy: No Hx Radiation Therapy: No - Surgical History Hx Anesthesia Reactions: No - Immunization History Date of Tetanus Vaccine: utd Date of Influenza Vaccine: no Infectious Disease History: No Infectious Disease History: Denies: Hx Hepatitis, Hx Human Immunodeficiency Virus (HIV), Hx of Known/ Suspected MRSA, Hx Shingles, Hx Tuberculosis, History Other Infectious Disease, Traveled Outside the [place] in Last 30 Days - Family History Known Family History: Negative: Cardiac Disease, Hypertension, Diabetes Family History: NON CONTRIBUTORY - Social History Occupation: Unemployed Lives: Alone Alcohol Use: None Hx Substance Use: Yes Substance Use Type: Reports: Marijuana Substance Use Comment - Amount & Last Used: weekly Hx Tobacco Use: Yes Smoking Status (MU): Current Some Day Smoker Type: Cigarettes Amount Used/How Often: 1/2PPD a day and has smoked in the last 30 days Length of Time of Smoking/Using Tobacco: 20 years Have You Smoked in the Last Year: Yes Review of Systems Negative: Fever Positive: Abdominal Pain, Vomiting, Nausea. Negative: Diarrhea Positive: no symptoms reported All Other Systems Reviewed And Are Negative: Yes Physical Exam - Summary Physical Exam Summary: Appearance: Well appearing, no pain distress Skin: warm, dry, reflects adequate perfusion Head/face: normal Eyes: EOMI, SARAHY ENT: normal Neck: supple, non-tender Respiratory: CTA, breath sounds present Cardiovascular: RRR, pulses symmetrical Abdomen: mild tenderness in the umbilical area, soft Bowel: present Musculoskeletal: normal, strength/ROM intact Neuro: normal, sensory motor intact, A&Ox3 Triage Information Reviewed: Yes Vital Signs On Initial Exam: Initial Vitals Temp Pulse Resp BP Pulse Ox 97.0 F 114 22 163/104 100 11/14/17 10:03 11/14/17 10:03 11/14/17 10:03 11/14/17 10:03 11/14/17 10:03 Vital Signs Reviewed: Yes Diagnostics - Vital Signs Vital Signs Temp Pulse Resp BP Pulse Ox 11/14/17 10:03 97.0 F 114 22 163/104 100 - Laboratory Result Diagrams: 11/14/17 10:28 11/14/17 12:28 Lab Statement: Any lab studies that have been ordered have been reviewed, and results considered in the medical decision making process. - Radiology Abd XR Xray Interpretation: No Acute Changes Radiology Interpretation Completed By: Radiologist - Negative examination. Dr. Wong has reviewed this report. Re-Evaluation - Re-Evaluation First Eval Re-Evaluation Time: 11:21 Change: Unchanged Comment: Pt says toridol did not alleviate sx. Wants another/different pain medication. Second Eval Re-Evaluation Time: 11:35 Change: Unchanged Comment: Pt threatening to leave AMA because he did not get any narcotics. Abdominal Pain Fem Course/Dx - Course Course Of Treatment: A 37-year-old M presents to the ED with a CC of epigastric/ umbilical 12/25 abd painsince this AM. (+) N/V, dry-heaving. (-) diarrhea. PMHx gastroparesis, renal failure, substance abuse, psychiatric admissions. An abd XR was (-). In the ED course, pt was given toridol, reglan, tylenol, and nl saline. pt is a regular visitor to er. demanding narcotics for pain, i dont see any indication for narcotics at present. will advise to follow up with pmd adrian for follow up. - Diagnoses Differential Diagnosis/HQI/PQRI: Constipation, Peptic Ulcer Disease Provider Diagnoses: Abdominal pain Discharge - Sign-Out/Discharge Documenting (check all that apply): Patient Departure - discharge - Discharge Plan Condition: Stable Disposition: HOME Prescriptions: Pantoprazole TAB (NF) [Protonix TAB (NF)] 40 mg PO DAILY #30 tab Patient Education Materials: Abdominal Pain (ED) Referrals: Genaro De Paz MD [Primary Care Provider] - 3 Days Additional Instructions: Return to the emergency department for new or worsening symptoms. - Billing Disposition and Condition Condition: STABLE Disposition: Home - Attestation Statements Document Initiated by Scribe: Yes Documenting Scribe: Jhony Paris Provider For Whom Flash is Documenting (Include Credential): Dr. Daniel Wong MD Scribe Attestation: Jhony Sarkar scribed for Dr. Daniel Wong MD on 11/14/17 at 1433. Scribe Documentation Reviewed: Yes Provider Attestation: The documentation as recorded by the Jhony deutsch accurately reflects the service I personally performed and the decisions made by me, Dr. Daniel Wong MD
[2017-11-14 10:34] LABS: ABS Basophils 0 10^3/ul (0-0.2); ABS Eosinophils 0.1 10^3/ul (0-0.6); ABS Monocytes 0.4 10^3/ul (0-0.8); ABS Neutrophils 8.4 10^3/ul (1.5-7.7); ABS Nucleated RBC 0 10^3/ul; Eosinophil % 1.3 % (0-6); Hematocrit 33 % (42-52); Hemoglobin 11.1 g/dl (14.0-18.0); Lymphocyte % 9.7 % (25-47); Mean Corpuscular HGB Conc 34 g/dl (31-36); Mean Corpuscular Hemoglobin 28 pg (27-31); Mean Corpuscular Volume 82 fL (80-94); Mean Platelet Volume 7.3 um3 (7.4-10.4); Nucleated Red Blood Cells % 0; Platelet Count 443 10^3/ul (150-450); Red Blood Count 3.99 10^6/ul (4.00-5.40); Red Cell Distribution Width 14 % (10.5-15)
--- NOTE | 2017-11-14 10:50 | RAD ---
INDICATION: Abdominal pain COMPARISON: None TECHNIQUE: Erect and supine views of the abdomen are submitted. FINDINGS: Bones: There are no acute bony findings. Soft tissues: The soft tissues appear normal. The psoas margins are sharp. Bowel gas pattern: Normal Calcifications: There are no abnormal calcifications. Other: None IMPRESSION: NEGATIVE EXAMINATION.
[2017-11-14 11:53] LABS: Urine Appearance Clear; Urine Blood Negative (Negative); Urine Color Yellow; Urine Ketones Negative (Negative); Urine Protein 3+(>=500 mg/dL) (Negative); Urine Red Blood Cell Trace(0-2/hpf) (Absent); Urine Specific Gravity 1.012 (1.010-1.030); Urine Urobilinogen Negative (Negative); Urine White Blood Cell Trace(0-5/hpf) (Absent)
[2017-11-14 12:56] LABS: EGFR Non-African American 28.6 (>60)
[2017-11-14 13:38] VITALS: BP 161/91
== END | disposition home or self-care (01) ==
LOC: ED 10:02
DX: R10.13 Epigastric pain (principal); E10.9 Type 1 diabetes mellitus without complications; F17.200 Nicotine dependence, unspecified, uncomplicated
CPT/HCPCS: 36415; 74019; 80048; 80053; 81003; 81015; 83605; 83690; 85025; 87086; 96361; 96372; 96374; 99283; A9270-GY; J1885; J2765

== ENCOUNTER 2018-02-11 22:18 | Emergency (ER) | payer OTHER ==
[2018-02-11] MEDS ORDERED: Nicotine Inhaler* 10 MG AMP INH PRN (23:32)
[2018-02-12 00:03] LABS: ABS Basophils 0.1 10^3/ul (0-0.2); ABS Eosinophils 0.4 10^3/ul (0-0.6); ABS Lymphocytes 2.1 10^3/ul (1.0-4.8); ABS Monocytes 0.7 10^3/ul (0-0.8); ABS Neutrophils 5.9 10^3/ul (1.5-7.7); ABS Nucleated RBC 0 10^3/ul; Eosinophil % 3.9 %; Hematocrit 31 % (42-52); Hemoglobin 10.3 g/dl (14.0-18.0); Lymphocyte % 23.2 %; Mean Corpuscular HGB Conc 33 g/dl (31-36); Mean Corpuscular Hemoglobin 27 pg (27-31); Mean Corpuscular Volume 83 fL (80-94); Mean Platelet Volume 6.8 fL (7.4-10.4); Nucleated Red Blood Cells % 0; Platelet Count 616 10^3/ul (150-450); Red Blood Count 3.77 10^6/ul (4.00-5.40); Red Cell Distribution Width 15 % (10.5-15); White Blood Count 9.1 10^3/ul (3.5-10.8)
[2018-02-12 00:25] LABS: EGFR Non-African American 25.2 (>60)
[2018-02-12 00:44] LABS: Urine Appearance Clear; Urine Blood Negative (Negative); Urine Color Yellow; Urine Ketones Negative (Negative); Urine Protein 3+(>=500 mg/dL) (Negative); Urine Red Blood Cell Absent (Absent); Urine Specific Gravity 1.015 (1.010-1.030); Urine Urobilinogen Negative (Negative); Urine White Blood Cell Absent (Absent)
[2018-02-12] MEDS ORDERED: Mouth Piece, Nicotine* 1 EACH CARTRIDGE INH ONE (02:00)
--- NOTE | 2018-02-12 02:36 | ED ---
Medical Screening - HPI Summary HPI Summary: Patient brought [phone] by the police for statements concerning SI on Facebook this morning. Patient admits to statements, states he has recent increase in stress stress, but denies actual intent to hurt himself. Patient states he does have history of prior attempts to hurt himself by underdosing or overdosing insulin. Patient is diabetic. Patient states he is compliant with medication, but states his is leaving him for another man and this has caused increase in stress. Denies HI. Denies any other symptoms, injuries, pain. - History of Current Complaint Chief Complaint: EDMentalHealth Stated Complaint: 941 Time Seen by Provider: 02/11/18 23:31 Onset/Duration: Started Hours Ago Severity: mild Associated Signs and Symptoms: Negative PMH/Surg Hx/FS Hx/Imm Hx Endocrine/Hematology History: Reports: Hx Diabetes - Type 1 Denies: Hx Anticoagulant Therapy, Hx Blood Disorders, Hx Blood Transfusions, Hx Bone Marrow Disease, Hx Systemic Lupus Erythematosus, Hx Sickle Cell Disease , Hx Thyroid Disease, Hx Anemia, Hx Unexplained Bleeding, Other Endocrine/ Hematological Disorders Cardiovascular History: Denies: Hx Hypertension, Hx Pacemaker/ICD, Hx Peripheral Vascular Disease, Other Cardiovascular Problems/Disorders Respiratory History: Reports: Hx Pneumonia Denies: Hx Asthma, Hx Chronic Bronchitis, Hx Chronic Obstructive Pulmonary Disease (COPD), Hx Cystic Fibrosis, Hx Lung Cancer, Hx Pleural Effusion, Hx Pulmonary Edema, Hx Pulmonary Embolism, Hx Seasonal Allergies, Hx Sleep Apnea, Other Respiratory Problems/Disorders GI History: Reports: Hx Gastroesophageal Reflux Disease, Hx Gastrointestinal Bleed, Hx Ulcer, Other GI Disorders - Gastroparesis Denies: Hx Cirrhosis, Hx Crohn's Disease, Hx Diverticulosis, Hx Gall Bladder Disease, Hx Hiatal Hernia, Hx Irritable Bowel, Hx Jaundice, Hx Obstructive Bowel , Hx Ileostomy, Hx Pyloric Stenosis History: Reports: Other Problems/Disorders - chronic kidney disease Denies: Hx Acute Renal Failure, Hx Benign Prostatic Hyperplasia, Hx Chronic Renal Failure, Hx Dialysis, Hx Kidney Infection, Hx Kidney Stones, Hx Renal Disease Musculoskeletal History: Denies: Hx Arthritis, Hx Osteoporosis Sensory History: Reports: Hx Vision Problem Denies: Hx Cataracts, Hx Contacts or Glasses, Hx Eye Injury, Hx Eye Prosthesis, Hx Glaucoma, Hx Macular Degeneration, Hx Deafness, Hx Hearing Aid, Hx Hearing Problem, Other Sensory Impairments Opthamlomology History: Reports: Hx Vision Problem Denies: Hx Cataracts, Hx Contacts or Glasses, Hx Eye Injury, Hx Eye Prosthesis, Hx Glaucoma, Hx Macular Degeneration, Other Sensory Impairments Neurological History: Reports: Hx Headaches Denies: Hx Dementia, Hx Developmental Delay, Hx Migraine, Hx Nerve Disease, Hx Seizures, Hx Spinal Cord Injury, Hx Transient Ischemic Attacks (TIA), Other Neuro Impairments/Disorders Psychiatric History: Reports: Hx Anxiety, Hx Depression, Hx Inpatient Treatment , Hx Community Mental Health Tx, Hx Bipolar Disorder, Hx Substance Abuse Denies: Hx Attention Deficit Hyperactivity Disorder, Hx Eating Disorder, Hx Panic Disorder, Hx Post Traumatic Stress Disorder, Hx Schizophrenia, Hx Suicide Attempt, Hx of Violent Episodes Against Others, Other Psychiatric Issues/ Disorders - Cancer History Hx Chemotherapy: No Hx Radiation Therapy: No - Surgical History Hx Anesthesia Reactions: No - Immunization History Date of Tetanus Vaccine: utd Date of Influenza Vaccine: no Infectious Disease History: No Infectious Disease History: Denies: Hx Hepatitis, Hx Human Immunodeficiency Virus (HIV), Hx of Known/ Suspected MRSA, Hx Shingles, Hx Tuberculosis, History Other Infectious Disease, Traveled Outside the [place] in Last 30 Days - Family History Known Family History: Negative: Cardiac Disease, Hypertension, Diabetes Family History: NON CONTRIBUTORY - Social History Alcohol Use: None Hx Substance Use: Yes Substance Use Type: Reports: Marijuana Substance Use Comment - Amount & Last Used: weekly Hx Tobacco Use: Yes Smoking Status (MU): Current Some Day Smoker Type: Cigarettes Amount Used/How Often: 1/2PPD a day and has smoked in the last 30 days Length of Time of Smoking/Using Tobacco: 20 years Have You Smoked in the Last Year: Yes Review of Systems Constitutional: Negative Eyes: Negative ENT: Negative Cardiovascular: Negative Respiratory: Negative Gastrointestinal: Negative Genitourinary: Negative Musculoskeletal: Negative Skin: Negative Neurological: Negative Psychological: Other All Other Systems Reviewed And Are Negative: Yes Physical Exam - Summary Physical Exam Summary: Patient calm, collected and appropriate in responses. Denies actual SI intent or plan. Triage Information Reviewed: Yes Vital Signs On Initial Exam: Initial Vitals Temp Pulse Resp BP Pulse Ox 99.3 F 104 20 150/115 95 02/11/18 22:19 02/11/18 22:19 02/11/18 22:19 02/11/18 22:19 02/11/18 22:19 Vital Signs Reviewed: Yes Appearance: Positive: Well-Appearing Skin: Positive: Warm Head/Face: Positive: Normal Head/Face Inspection Eyes: Positive: Normal Neck: Positive: Supple Respiratory/Lung Sounds: Positive: Clear to Auscultation Cardiovascular: Positive: Normal Abdomen Description: Positive: Nontender Musculoskeletal: Positive: Normal Neurological: Positive: Normal Psychiatric: Positive: Normal AVPU Assessment: Alert - [place] Coma Scale Best Eye Response: 4 - Spontaneous Best Motor Response: 6 - Obeys Commands Best Verbal Response: 5 - Oriented Coma Scale Total: 15 Diagnostics - Vital Signs Vital Signs Temp Pulse Resp BP Pulse Ox 02/11/18 22:19 99.3 F 104 20 150/115 95 - Laboratory Lab Results: Lab Results 02/11/18 02/11/18 02/12/18 Range/Units 23:56 23:56 00:15 WBC 9.1 (3.5-10.8) 10^3/ul RBC 3.77 L (4.00-5.40) 10^6/ul Hgb 10.3 L (14.0-18.0) g/dl Hct 31 L (42-52) % MCV 83 (80-94) fL MCH 27 (27-31) pg MCHC 33 (31-36) g/dl RDW 15 (10.5-15) % Plt Count 616 H (150-450) 10^3/ul MPV 6.8 L (7.4-10.4) fL Neut % (Auto) 64.4 % Lymph % (Auto) 23.2 % [place] % (Auto) 7.7 % Eos % (Auto) 3.9 % Baso % (Auto) 0.8 % Absolute Neuts (auto) 5.9 (1.5-7.7) 10^3/ul Absolute Lymphs (auto) 2.1 (1.0-4.8) 10^3/ul Absolute Monos (auto) 0.7 (0-0.8) 10^3/ul Absolute Eos (auto) 0.4 (0-0.6) 10^3/ul Absolute Basos (auto) 0.1 (0-0.2) 10^3/ul Absolute Nucleated RBC 0 10^3/ul Nucleated RBC % 0 Sodium 132 L (135-145) mmol/L Potassium 3.1 L (3.5-5.0) mmol/L Chloride 98 L (101-111) mmol/L Carbon Dioxide 25 (22-32) mmol/L Anion Gap 9 (2-11) mmol/L BUN 33 H (6-24) mg/dL Creatinine 2.85 H (0.67-1.17) mg/dL Est GFR ( Amer) 30.5 (>60) Est GFR (Non-Af Amer) 25.2 (>60) BUN/Creatinine Ratio 11.6 (8-20) Glucose 48 L* (70-100) mg/dL POC Glucose (mg/dL) (70-100) mg/dL Calcium 9.6 (8.6-10.3) mg/dL Total Bilirubin 0.30 (0.2-1.0) mg/dL AST 21 (13-39) U/L ALT 11 (7-52) U/L Alkaline Phosphatase 107 H (34-104) U/L Total Protein 8.1 (6.4-8.9) g/dL Albumin 4.3 (3.2-5.2) g/dL Globulin 3.8 (2-4) g/dL Albumin/Globulin Ratio 1.1 (1-3) TSH 0.59 (0.34-5.60) mcIU/mL Urine Color Yellow Urine Appearance Clear Urine pH 7.0 (5-9) Ur Specific [place] 1.015 (1.010-1.030) Urine Protein 3+(>=500 mg/dl) A (Negative) Urine Ketones Negative (Negative) Urine Blood Negative (Negative) Urine Nitrate Negative (Negative) Urine Bilirubin Negative (Negative) Urine Urobilinogen Negative (Negative) Ur Leukocyte Esterase Negative (Negative) Urine WBC (Auto) Absent (Absent) Urine RBC (Auto) Absent (Absent) Urine Bacteria Absent (Absent) Hyaline Casts Present A (Absent) Urine Glucose 3+(>=500 mg/dl) A (Negative) Urine Ascorbic Acid * A (Negative) Salicylates < 2.50 (<30) mg/dL Urine Opiates Screen (None Detect) Acetaminophen < 15 mcg/mL Ur Barbiturates Screen (None Detect) Ur Phencyclidine Scrn (None Detect) Ur Amphetamines Screen (None Detect) U Benzodiazepines Scrn (None Detect) Urine Cocaine Screen (None Detect) U Cannabinoids Screen (None Detect) Serum Alcohol < 10 (<10) mg/dL 02/12/18 02/12/18 02/12/18 Range/Units 00:15 00:51 01:13 WBC (3.5-10.8) 10^3/ul RBC (4.00-5.40) 10^6/ul Hgb (14.0-18.0) g/dl Hct (42-52) % MCV (80-94) fL MCH (27-31) pg MCHC (31-36) g/dl RDW (10.5-15) % Plt Count (150-450) 10^3/ul MPV (7.4-10.4) fL Neut % (Auto) % Lymph % (Auto) % [place] % (Auto) % Eos % (Auto) % Baso % (Auto) % Absolute Neuts (auto) (1.5-7.7) 10^3/ul Absolute Lymphs (auto) (1.0-4.8) 10^3/ul Absolute Monos (auto) (0-0.8) 10^3/ul Absolute Eos (auto) (0-0.6) 10^3/ul Absolute Basos (auto) (0-0.2) 10^3/ul Absolute Nucleated RBC 10^3/ul Nucleated RBC % Sodium (135-145) mmol/L Potassium (3.5-5.0) mmol/L Chloride (101-111) mmol/L Carbon Dioxide (22-32) mmol/L Anion Gap (2-11) mmol/L BUN (6-24) mg/dL Creatinine (0.67-1.17) mg/dL Est GFR ( Amer) (>60) Est GFR (Non-Af Amer) (>60) BUN/Creatinine Ratio (8-20) Glucose (70-100) mg/dL POC Glucose (mg/dL) 65 L 105 H (70-100) mg/dL Calcium (8.6-10.3) mg/dL Total Bilirubin (0.2-1.0) mg/dL AST (13-39) U/L ALT (7-52) U/L Alkaline Phosphatase (34-104) U/L Total Protein (6.4-8.9) g/dL Albumin (3.2-5.2) g/dL Globulin (2-4) g/dL Albumin/Globulin Ratio (1-3) TSH (0.34-5.60) mcIU/mL Urine Color Urine Appearance Urine pH (5-9) Ur Specific [place] (1.010-1.030) Urine Protein (Negative) Urine Ketones (Negative) Urine Blood (Negative) Urine Nitrate (Negative) Urine Bilirubin (Negative) Urine Urobilinogen (Negative) Ur Leukocyte Esterase (Negative) Urine WBC (Auto) (Absent) Urine RBC (Auto) (Absent) Urine Bacteria (Absent) Hyaline Casts (Absent) Urine Glucose (Negative) Urine Ascorbic Acid (Negative) Salicylates (<30) mg/dL Urine Opiates Screen None detected (None Detect) Acetaminophen mcg/mL Ur Barbiturates Screen None detected (None Detect) Ur Phencyclidine Scrn None detected (None Detect) Ur Amphetamines Screen None detected (None Detect) U Benzodiazepines Scrn None detected (None Detect) Urine Cocaine Screen None detected (None Detect) U Cannabinoids Screen Presumptive positive A (None Detect) Serum Alcohol (<10) mg/dL Result Diagrams: 02/11/18 23:56 02/11/18 23:56 Lab Statement: Any lab studies that have been ordered have been reviewed, and results considered in the medical decision making process. Course/Dx - Course Course Of Treatment: Patient brought 941 by the police for statements concerning SI on Facebook this morning. Patient admits to statements, states he has recent increase in stress stress, but denies actual intent to hurt himself. Patient states he does have history of prior attempts to hurt himself by underdosing or overdosing insulin. Patient is diabetic. Patient states he is compliant with medication, but states his is leaving him for another man and this has caused increase in stress. Denies HI. Denies any other symptoms, injuries, pain. Physical exam:Patient calm, collected and appropriate in responses. Denies actual SI intent or plan. Patient medically cleared after blood sugars stabilized. Evaluated by mental health, considered appropriate for discharge and outpatient follow-up. - Diagnoses Provider Diagnoses: Adjustment disorder Discharge - Sign-Out/Discharge Documenting (check all that apply): Patient Departure, Sign-Out Patient Signing out patient TO: Bari Becerril - Discharge Plan Condition: Stable Disposition: HOME Patient Education Materials: Depression (ED) Referrals: Genaro De Paz MD [Primary Care Provider] - Additional Instructions: Per completion of a mental health evaluation, you are cleared for release and do not require inpatient psychiatric hospitalization at this time. Please go to nearest emergency room or call 911 if safety concerns arise or condition worsens. Important Phone Numbers: [facility] [phone] Suicide Prevention and Crisis Services........................ [phone] [place] [facility]............................ [phone] ([phone]) [facility]....................... [phone] Alcoholics Anonymous............................................... [facility].............. [phone] [place] [employer].............................................. [phone] - Billing Disposition and Condition Condition: STABLE Disposition: Home
[2018-02-12 02:45] VITALS: BP 145/96
== END 2018-02-12 02:45 | disposition home or self-care (01) ==
LOC: ED 22:18
DX: F43.20 Adjustment disorder, unspecified (principal); F17.210 Nicotine dependence, cigarettes, uncomplicated
CPT/HCPCS: 36415; 80053; 80307; 80320; 80329; 81003; 81015; 84443; 85025; 99284; G0480

== ENCOUNTER 2018-03-09 16:55 | Inpatient (IN) | payer OTHER ==
[2018-03-09] MEDS ORDERED: NS 0.9% 1000 ML* 1,000 ML IV ONE (17:07)
--- NOTE | 2018-03-09 17:08 | ED ---
Psychiatric Complaint - HPI Summary HPI Summary: This patient is a 38 year old M brought in by EMS to [facility] after he attempted to overdose on his insulin. When asked why he is here today the patient states I wanted to kill myself man, plain and simple, cut and dry, no one here is gonna help me man. He also states I am a failure and a piece of human trash. He has a history of depression and his girlfriend called the police, states it occurred about 2 hours ago. He took 30 units of insulin and 1000mg of Seroquel. He did not take his blood glucose before he did this. His normal dose is 200mg of Seroquel at night. He denies any HI. Pt states he wakes up every morning with ABD pain that no doctors have been able to understand why it is there. - History Of Current Complaint Chief Complaint: EDOverdose Hx Obtained From: Patient Onset/Duration: Lasting Hours, Still Present Timing: Constant Severity Initially: Moderate Severity Currently: Moderate Character: Depressed Related History: Positive For: Prior Psychiatric Issues Has Suicidal: Reports: Thoughts, With A Plan, Demonstrates Gesture Has Homicidal: Denies: Thoughts, With A Plan - Allergies/Home Medications Allergies/Adverse Reactions: Allergies Allergy/AdvReac Type Severity Reaction Status Date / Time gluten Allergy Abdominal Verified 11/14/17 10:05 Pain PMH/Surg Hx/FS Hx/Imm Hx Endocrine/Hematology History: Reports: Hx Diabetes - Type 1 Denies: Hx Anticoagulant Therapy, Hx Blood Disorders, Hx Blood Transfusions, Hx Bone Marrow Disease, Hx Systemic Lupus Erythematosus, Hx Sickle Cell Disease , Hx Thyroid Disease, Hx Anemia, Hx Unexplained Bleeding, Other Endocrine/ Hematological Disorders Cardiovascular History: Denies: Hx Hypertension, Hx Pacemaker/ICD, Hx Peripheral Vascular Disease, Other Cardiovascular Problems/Disorders Respiratory History: Reports: Hx Pneumonia Denies: Hx Asthma, Hx Chronic Bronchitis, Hx Chronic Obstructive Pulmonary Disease (COPD), Hx Cystic Fibrosis, Hx Lung Cancer, Hx Pleural Effusion, Hx Pulmonary Edema, Hx Pulmonary Embolism, Hx Seasonal Allergies, Hx Sleep Apnea, Other Respiratory Problems/Disorders GI History: Reports: Hx Gastroesophageal Reflux Disease, Hx Gastrointestinal Bleed, Hx Ulcer, Other GI Disorders - Gastroparesis Denies: Hx Cirrhosis, Hx Crohn's Disease, Hx Diverticulosis, Hx Gall Bladder Disease, Hx Hiatal Hernia, Hx Irritable Bowel, Hx Jaundice, Hx Obstructive Bowel , Hx Ileostomy, Hx Pyloric Stenosis History: Reports: Other Problems/Disorders - chronic kidney disease Denies: Hx Acute Renal Failure, Hx Benign Prostatic Hyperplasia, Hx Chronic Renal Failure, Hx Dialysis, Hx Kidney Infection, Hx Kidney Stones, Hx Renal Disease Musculoskeletal History: Denies: Hx Arthritis, Hx Osteoporosis Sensory History: Reports: Hx Vision Problem Denies: Hx Cataracts, Hx Contacts or Glasses, Hx Eye Injury, Hx Eye Prosthesis, Hx Glaucoma, Hx Macular Degeneration, Hx Deafness, Hx Hearing Aid, Hx Hearing Problem, Other Sensory Impairments Opthamlomology History: Reports: Hx Vision Problem Denies: Hx Cataracts, Hx Contacts or Glasses, Hx Eye Injury, Hx Eye Prosthesis, Hx Glaucoma, Hx Macular Degeneration, Other Sensory Impairments Neurological History: Reports: Hx Headaches Denies: Hx Dementia, Hx Developmental Delay, Hx Migraine, Hx Nerve Disease, Hx Seizures, Hx Spinal Cord Injury, Hx Transient Ischemic Attacks (TIA), Other Neuro Impairments/Disorders Psychiatric History: Reports: Hx Anxiety, Hx Depression, Hx Post Traumatic Stress Disorder, Hx Inpatient Treatment, Hx Community Mental Health Tx, Hx Bipolar Disorder, Hx Substance Abuse Denies: Hx Attention Deficit Hyperactivity Disorder, Hx Eating Disorder, Hx Panic Disorder, Hx Schizophrenia, Hx Suicide Attempt, Hx of Violent Episodes Against Others, Other Psychiatric Issues/Disorders - Cancer History Hx Chemotherapy: No Hx Radiation Therapy: No - Surgical History Hx Anesthesia Reactions: No - Immunization History Date of Tetanus Vaccine: utd Date of Influenza Vaccine: no Infectious Disease History: No Infectious Disease History: Denies: Hx Hepatitis, Hx Human Immunodeficiency Virus (HIV), Hx of Known/ Suspected MRSA, Hx Shingles, Hx Tuberculosis, History Other Infectious Disease, Traveled Outside the [place] in Last 30 Days - Family History Known Family History: Negative: Cardiac Disease, Hypertension, Diabetes Family History: NON CONTRIBUTORY - Social History Alcohol Use: None Hx Substance Use: Yes Substance Use Type: Reports: Marijuana Substance Use Comment - Amount & Last Used: weekly Hx Tobacco Use: Yes Smoking Status (MU): Current Some Day Smoker Type: Cigarettes Amount Used/How Often: 1/2PPD a day and has smoked in the last 30 days Length of Time of Smoking/Using Tobacco: 20 years Have You Smoked in the Last Year: Yes Review of Systems Negative: Fever Positive: Abdominal Pain Psychological: Other - SI Positive: Depressed, Other - NEGATIVE: HI All Other Systems Reviewed And Are Negative: Yes Physical Exam - Summary Physical Exam Summary: Appearance: Well appearing, no pain distress Skin: warm, dry, reflects adequate perfusion Head/face: normal Eyes: EOMI, SARAHY ENT: mucous membranes are tachy Neck: supple, non-tender Respiratory: CTA, breath sounds present Cardiovascular: RRR, pulses symmetrical Abdomen: non-tender, soft Bowel Sounds: present Musculoskeletal: normal, strength/ROM intact Neuro: normal, sensory motor intact, A&Ox3 Triage Information Reviewed: Yes Vital Signs On Initial Exam: Initial Vitals Temp Pulse Resp BP Pulse Ox 99 F 120 20 160/98 99 03/09/18 17:00 03/09/18 17:00 03/09/18 17:00 03/09/18 17:00 03/09/18 17:00 Vital Signs Reviewed: Yes Diagnostics - Vital Signs Vital Signs Temp Pulse Resp BP Pulse Ox 03/09/18 17:00 99 F 120 20 160/98 99 - Laboratory Result Diagrams: 03/09/18 17:16 03/09/18 17:16 Lab Statement: Any lab studies that have been ordered have been reviewed, and results considered in the medical decision making process. - Radiology CXR Radiology Interpretation Completed By: Radiologist Summary of Radiographic Findings: no active cardiopulmonary disease is noted. ED physician has reviewed this radiology report - EKG 1745 Cardiac Rate: Tachycardia EKG Rhythm: Sinus Tachycardia - at 109 BPM Summary of EKG Findings: nml axis, QTc is 481, nml ST Course/Dx - Course Course Of Treatment: Nurse's notes reviewed. Patient presents with polypharmacy overdose including 30 units of insulin subcutaneous and 1000 mg of Seroquel. He has persistent suicidal ideation. There is borderline QTC prolongation. These findings discussed with poison control who recommended observation through the night. Patient sugars consistently falling from a high of 350+ down into the low 100s. He was started on it D5 normal saline drip and will require ICU admission. He has otherwise remained stable and not required any benzodiazepines for agitation, etc. Discussed with the hospitalist team will admit to ICU. - Differential Dx/Clinical Impression Differential Diagnosis/HQI/PQRI: Positive: Bipolar Disorder, Depression, Drug Overdose/Intentional, Suicide Attempt, Suicidal Ideation Provider Diagnosis: Depression, Overdose, Polypharmacy, Insulin dependent diabetes mellitus, Type 1 diabetes mellitus with nephropathy - Physician Notifications Discussed Care Of Patient With: Carlos Jonathan Caballes Time Discussed With Above Provider: 17:55 Instructed by Provider To: Admit As Inpatient - Critical Care Time Critical Care Time: 30-74 min - CCT is EXCLUSIVE of separately billable procedures. Discharge - Sign-Out/Discharge Documenting (check all that apply): Patient Departure - admitted - Discharge Plan Condition: Guarded Disposition: ADMITTED TO [facility] Referrals: Genaro De Paz MD [Primary Care Provider] - - Billing Disposition and Condition Condition: GUARDED Disposition: Admitted to [facility] - Attestation Statements Document Initiated by Scribe: Yes Documenting Scribe: Mook Ramon Provider For Whom Scribe is Documenting (Include Credential): Ghanshyam Carrillo MD Scribe Attestation: Mook Sarkar , scribed for Ghanshyam Carrillo MD on 03/09/18 at 1743. Scribe Documentation Reviewed: Yes Provider Attestation: The documentation as recorded by the Mook deutsch accurately reflects the service I personally performed and the decisions made by me, Ghanshyam Carrillo MD Status of Scribe Document: Viewed Consult Consult: At 5800 I discussed patient care with poison control and they suggested observing the patient for 6-8 hours. Along with this they suggested using anticholinergic's and benzo's as needed.
[2018-03-09 17:24] LABS: ABS Basophils 0 10^3/ul (0-0.2); ABS Eosinophils 0.2 10^3/ul (0-0.6); ABS Lymphocytes 1.2 10^3/ul (1.0-4.8); ABS Monocytes 0.4 10^3/ul (0-0.8); ABS Nucleated RBC 0 10^3/ul; Eosinophil % 2.5 %; Hematocrit 30 % (42-52); Hemoglobin 10.2 g/dl (14.0-18.0); Lymphocyte % 14.8 %; Mean Corpuscular HGB Conc 34 g/dl (31-36); Mean Corpuscular Hemoglobin 28 pg (27-31); Mean Corpuscular Volume 84 fL (80-94); Mean Platelet Volume 7.6 fL (7.4-10.4); Nucleated Red Blood Cells % 0; Platelet Count 428 10^3/ul (150-450); Red Cell Distribution Width 16 % (10.5-15); White Blood Count 7.9 10^3/ul (3.5-10.8)
[2018-03-09 17:38] LABS: Urine Appearance Clear; Urine Bacteria Absent (Absent); Urine Bilirubin Negative (Negative); Urine Blood Negative (Negative); Urine Color Yellow; Urine Glucose 3+(>=500 mg/dL) (Negative); Urine Ketones Negative (Negative); Urine Nitrite Negative (Negative); Urine Protein 3+(>=500 mg/dL) (Negative); Urine Red Blood Cell Absent (Absent); Urine Specific Gravity 1.018 (1.010-1.030); Urine Urobilinogen Negative (Negative); Urine White Blood Cell Absent (Absent)
[2018-03-09 17:42] LABS: ALT 11 U/L (7-52); AST 19 U/L (13-39); Albumin 3.8 g/dL (3.2-5.2); Albumin/Globulin Ratio 1.3 (1-3); Alkaline Phosphatase 78 U/L (34-104); Anion Gap 10 mmol/L (2-11); BUN/Creatinine Ratio 14.4 (8-20); Blood Urea Nitrogen 43 mg/dL (6-24); CO2 Carbon Dioxide 22 mmol/L (22-32); Calcium 8.8 mg/dL (8.6-10.3); Chloride 100 mmol/L (101-111); EGFR Non-African American 23.8 (>60); Glucose 366 mg/dL (70-100); Potassium 3.6 mmol/L (3.5-5.0); Sodium 132 mmol/L (135-145); Total Protein 6.8 g/dL (6.4-8.9)
[2018-03-09 17:48] LABS: Barbiturates Urine Screen None Detected (None Detect); Benzodiazepine Urine Screen None Detected (None Detect); Urine Cannabinoids Screen Presumptive Positive (None Detect)
[2018-03-09 17:56] LABS: Acetaminophen < 15 mcg/mL; Alcohol < 10 mg/dL (<10); Salicylate < 2.50 mg/dL (<30)
[2018-03-09 18:11] LABS: TSH (Thyroid Stimulating Horm) 0.33 mcIU/mL (0.34-5.60)
[2018-03-09] MEDS ORDERED: Acetaminophen TAB* 325 MG PO PRN (18:57)
[2018-03-09] MEDS ORDERED: D5NS 0.9% 1000 ML BAG* 1,000 ML IV SCH (19:00)
[2018-03-09 21:13] LABS: Amylase 110 U/L (29-103)
[2018-03-09 21:47] LABS: Free T4 0.78 ng/dL (0.61-1.12)
[2018-03-09] MEDS ORDERED: KCL 20 MEQ/100 ML IVPREMIX* 20 MEQ/100 ML BAG IV SCH (22:00)
[2018-03-09] MEDS ORDERED: Sodium Chloride Conc 23.4%* 77 MEQ in D10W 1000 ML BAG* 1,000 ML IV SCH (22:00)
[2018-03-09] MEDS ORDERED: Ketorolac INJ* 30 MG/ML 1 ML VIAL IV PUSH ONE (22:08)
[2018-03-09] MEDS ORDERED: Glucagon* 1 MG VIAL IV ONE (22:20)
[2018-03-09] MEDS ORDERED: Potassium Chlor TAB* 20 MEQ TAB.ER PO ONE (22:24)
[2018-03-09] MEDS ORDERED: LORazepam INJ* 2 MG/ML 1 ML VIAL ONE (22:55)
[2018-03-09] MEDS ORDERED: D10W IV SCH (23:00)
[2018-03-09] MEDS ORDERED: D10W 1000 ML BAG* 1,000 ML IV SCH (23:00)
[2018-03-09] MEDS ORDERED: LORazepam INJ* 2 MG/ML 1 ML VIAL IV PUSH ONE (23:00)
[2018-03-09] MEDS ORDERED: SODIUM CHLORIDE IV SCH (23:00)
--- NOTE | 2018-03-09 23:20 | HP ---
CC: Dr. De Paz * HISTORY AND PHYSICAL: DATE OF ADMISSION: 03/09/18 PROVIDER: Angella Moore NP PRIMARY CARE PROVIDER: Dr. De Paz ATTENDING PHYSICIAN WHILE IN THE HOSPITAL: Dr. Carlos Tony * (dictated by Angella Moore NP). CHIEF COMPLAINT: Suicidal ideations. HISTORY OF PRESENT ILLNESS: Mr. Simmons is a 38-year-old male with a past medical history significant for depression, type 1 diabetes, celiac disease and diabetic neuropathy who presented to the emergency room after an overdose of Seroquel. The patient states that "I am just done." He states "I cannot take my life anymore." The patient reports that his recently cheated on him a couple of months ago. He does not have any family to talk to and no family support, and feels as though he cannot cope with life anymore. The patient reports that he did attempt to jump off the parking garage today but was stopped by his girlfriend. The patient reports "I want to kill myself." The patient reports that he took Seroquel 1000 mg and gave him 30 units of lispro in an attempt to "knock himself off." He reports "everything is a problem." In the emergency room, the patient had routine lab work drawn and due to suicidal ideation and recommendations by poison control for 24-hour observation for Seroquel overdose, we were asked to see and evaluate the patient for admission. PAST MEDICAL HISTORY: Significant for: 1. Depression. 2. Diabetes. 3. Celiac disease. 4. Diabetic neuropathy. 5. Gastroparesis 6. Chronic kidney disease stage 4 PAST SURGICAL HISTORY: No surgeries. HOME MEDICATIONS: 1. Gabapentin 300 mg t.i.d. 2. Lispro sliding scale. 3. Lantus 24 units daily but reports blood sugars in the 40s between 4 and 5 a.m. 4. Reglan 10 mg p.o. b.i.d. 5. Seroquel 200 mg p.o. daily. ALLERGIES: Allergy to GLUTEN. No known drug allergies. SOCIAL HISTORY: The patient does report he smokes a pack per day, denies any alcohol use. Does report marijuana use. He is currently disabled. He lives alone, he has no surrogate decision maker. REVIEW OF SYSTEMS: He denies any fever or unintended weight loss. Denies any chest pain or edema. No cough, congestion, or hemoptysis. He does report chronic abdominal pain with nausea, no diarrhea, denies hematuria or dysuria. Denies any focal weakness or sensory loss. Denies any visual complaints. Denies any dysphagia, arthralgias, myalgias, rashes, or lesions. He does report increased depression with suicidal ideations. Denies any homicidal ideations. Denies any anxiety. PHYSICAL EXAMINATION GENERAL: At this time, Mr. Simmons is a 38-year-old male, he is sitting on his stretcher in the emergency room, he appears disheveled. Speech is mildly slurred. He is alert and oriented x3. He does have lack of eye contact and appears depressed. VITAL SIGNS: Blood pressure 103/64, heart rate was 95, respirations were 12, O2 saturation 100% on room air, temperature was 98.7. HEENT: Head is atraumatic and normocephalic. Eyes: EOMs are intact. Sclerae are anicteric and not pale. Oral mucosa appears to be moist. No oropharyngeal erythema. NECK: Supple. LUNGS: Clear to auscultation bilaterally. No wheezes, rales, or rhonchi. CARDIAC: S1, S2. Regular rate and rhythm. No murmurs, rubs, or gallops ABDOMEN: Soft and nontender. Bowel sounds are present x4. EXTREMITIES: Pedal pulses are +2 bilaterally. He is able to move all 4 extremities with 5/5 strength. NEUROLOGIC: He is awake, alert, and oriented x3. Tongue is midline. There is no gross focal deficit. SKIN: Intact. LABORATORY DATA AND DIAGNOSTIC STUDIES: WBC is 7.9, RBC is 3.60, hemoglobin 10.2, hematocrit was 30, platelet count was 428. Sodium 132, potassium 3.6, chloride was 100, carbon dioxide was 22, anion gap was 10, BUN was 43, creatinine 2.98 which appears to be close to his baseline since 2017. Lactic acid was 3.7, calcium 8.8, total bilirubin 0.30, AST 19, ALT 11, troponin 0.00, TSH was 0.33, free T4 is pending. Urine: Yellow; clear; pH was 7; specific gravity 0.018; urine protein 3+; urine ketones blood, nitrites, bilirubin, urobilinogen were all negative; urine leukocyte esterase was negative; urine wbc's were absent, rbc's were absent, bacteria was absent, glucose was 3+. Urine tox: Salicylates were less than 2.50, acetaminophen less than 15, alcohol less than 10. Urine cannabinoid screen was positive and barbiturates, amphetamines, benzodiazepine and cocaine were all negative. Chest x-ray showed no acute cardiopulmonary process. Electrocardiogram showed sinus tachycardia at a rate of 109. IMPRESSION AND PLAN: Mr. Simmons is a 38-year-old male with a past medical history significant for diabetes and depression who presented to the emergency room after a Seroquel overdose and intentional overdose of insulin. We were asked to see and evaluate him due to Seroquel and insulin overdose. He will be admitted inpatient for: 1. Suicidal ideations. I will place him on 1:1 and suicide precautions. He will be monitored on telemetry overnight, will be given symptomatic and supportive care. I will have Psychiatry see in consult on the patient tomorrow. 2. Seroquel overdose. Poison control was contacted by the emergency room and recommended observing the patient for 6 to 8 hours, along with that they suggested using anticholinergics and benzodiazepines as needed. The patient will also have a repeat EKG in the a.m. 3. Insulin overdose. At this time, I will hold further lispro and Lantus insulin. We will place the patient on hourly Accu-Cheks. He will have D5 normal saline to support his blood sugars as his blood sugars were in the 300s and rapidly dropped to 69. We will continue monitoring this until his blood sugars are stable. 4. Diabetes. At this time, I will hold his lispro sliding scale and Lantus. He will have hourly Accu-Cheks. Lantus and lispro will need to be resumed once the patient's blood sugars are stabilized. 5. Lactic acidosis. Lactic acid 3.7 on admission to the ER. Patient was given Normal saline in the ER and repeat level is pending. 5. Diabetic neuropathy. The patient will continue gabapentin t.i.d. as previously prescribed. 6. Depression. We will consult Psychiatry as the patient has suicidal ideations and continues to state that he wants to kill himself. I will hold his Seroquel at this time as he did overdose and take 1000 mg of Seroquel today. This will need to be resumed when stable. 7. Acute on chronic renal failure stage 4. BUN/Creatinine 43/2.48 . Will monitor BMP. Will avoid nephrotoxic medications. 8. DVT prophylaxis. I will encourage ambulation. 9. Code status. He is a full code. At this time, the patient does report he wants to be a DNR. At this time, the patient is very suicidal and once Psychiatry has seen the patient and deemed he has capacity to make this decision , we will honor his code status wishes. 10. Fluids, electrolytes and nutrition. He will be placed on a consistent carb diet, gluten-free as he does have an allergy to GLUTEN. TIME SPENT: Time spent on this admission was 60 minutes, greater than half that time was spent [id number] with the patient obtaining my history and physical, the other half of the time was spent going over my plan of care and implementing my plan of care. I have discussed this with my attending, Dr. Carlos Tony, he is in agreement with my plan. ANGELLA MOORE, [employer] [id number]/CPS #: [id number] DESHAUN
[2018-03-09] MEDS ORDERED: Ondansetron INJ* 2 MG/ML VIAL IV PRN (23:26)
[2018-03-10] MEDS ORDERED: D10W 1000 ML BAG* 1,000 ML IV SCH ×2 (00:27→02:00)
[2018-03-10] MEDS ORDERED: Pantoprazole IV* 40 MG IV ONE (02:43)
[2018-03-10] MEDS ORDERED: Al Hydrox/Mg Hydrox/Simet LIQ* 30 ML UDC ONE (02:51)
[2018-03-10] MEDS ORDERED: Al Hydrox/Mg Hydrox/Simet LIQ* 30 ML UDC PO ONE (03:00)
[2018-03-10] MEDS ORDERED: D5W 1000 ML BAG* 1,000 ML IVPB SCH ×3 (03:00→03:20)
[2018-03-10] MEDS ORDERED: Diazepam INJ (NF) 5 MG/ML 10 ML VIAL (50 MG TOTAL) IV ONE (03:15)
--- NOTE | 2018-03-10 03:41 | PN ---
Hospitalist Progress Note Date of Service: 03/10/18 got called reg pt multiple times and went to see pt in person at least twice. hx of psy disorder type i dm tried to kill himself by using 30 unit humalog and 1000 mg seraqual. pt c/o luq abd pain as well---> was seen by gi and had egd ct abd both came back neg. pt f/s intially was down to 70s ---> glucagon 1 mg once iv + d101/4 ns started at 100 cc/hr which later was downgraded to d101/4 at 50 cc/hr then d5 at 50 cc/hr now completely off d51/4 ns. he c/o his luq pain which has been there for the past 5 yrs ---> ativan 1 mg given ---> he slept for about 1.5 hrs then wakened up ---> he became very agitated and refused to wear his tele monitering and oxygen ---> this radio news writer told him we would do a routine ekg if it does not show progression of his qtc interval then will let him off tele ---> psy and multiple different people talked to him multiple times ---> REFUSED ---> SPOKE WITH POSITION CONTROL ---> will give one dose diazepam which will last longer if it is avaiable . diazepam 5 mg ivp times one given ---> his repeat f/s is 264 will completely d/cd d5 ivf this radio news writer checked all his ekg in the computer since 2011 only two ekg showed qtc 450-460 the rest ekg showed qtc has been at least 470-520 no qtc prolongation meds will be given unless it is necessary and will only give one dose ( diazepam 5 mg times one )
[2018-03-10] MEDS ORDERED: Ziprasidone IM INJ* 20 MG/ML VIAL IM ONE (04:40)
[2018-03-10] MEDS ORDERED: Ziprasidone IM INJ* 20 MG/ML VIAL ONE (04:43)
[2018-03-10] MEDS ORDERED: Morphine VIAL* 10 MG/ML 1 ML VIAL ONE (06:25)
[2018-03-10] MEDS ORDERED: Morphine VIAL* 10 MG/ML 1 ML VIAL IV ONE (06:29)
[2018-03-10 06:30] LABS: ABS Basophils 0 10^3/ul (0-0.2); ABS Eosinophils 0.2 10^3/ul (0-0.6); ABS Lymphocytes 1.3 10^3/ul (1.0-4.8); ABS Monocytes 0.4 10^3/ul (0-0.8); ABS Neutrophils 7.5 10^3/ul (1.5-7.7); ABS Nucleated RBC 0 10^3/ul; Eosinophil % 1.9 %; Hematocrit 32 % (42-52); Hemoglobin 10.9 g/dl (14.0-18.0); Mean Corpuscular HGB Conc 34 g/dl (31-36); Mean Corpuscular Hemoglobin 28 pg (27-31); Mean Corpuscular Volume 83 fL (80-94); Mean Platelet Volume 7.8 fL (7.4-10.4); Nucleated Red Blood Cells % 0; Platelet Count 450 10^3/ul (150-450); Red Blood Count 3.87 10^6/ul (4.00-5.40); Red Cell Distribution Width 16 % (10.5-15); White Blood Count 9.5 10^3/ul (3.5-10.8)
[2018-03-10] MEDS ORDERED: chlorproMAZINE INJ* 25 MG/ML 2 ML (50 MG) IV PRN ×2 (06:30→07:47)
[2018-03-10] MEDS ORDERED: Insulin REGULAR(*) 1 UNITS UNIT SUBCUT ONE (06:39)
[2018-03-10 06:50] LABS: BUN/Creatinine Ratio 15.4 (8-20); EGFR Non-African American 27.1 (>60); Magnesium 2.2 mg/dL (1.9-2.7); Phosphorus 2.8 mg/dL (2.5-5.0); Potassium 4.5 mmol/L (3.5-5.0)
[2018-03-10] MEDS ORDERED: HYDROmorphone INJ1* 1 MG/ML SYRINGE IV SLOW PU ONE (07:06)
[2018-03-10] MEDS ORDERED: HYDROmorphone INJ1* 1 MG/ML SYRINGE ONE (07:17)
[2018-03-10] MEDS ORDERED: Insulin REGULAR(*) 1 UNITS UNIT SUBCUT SCH (08:00)
[2018-03-10] MEDS: Docusate CAP* 100 MG PO PRN ×2 (08:24→12:54)
[2018-03-10] MEDS ORDERED: Dextrose 50% Syringe 50 ML* 25 GM/50 ML SYRINGE IV PUSH PRN (10:22)
--- NOTE | 2018-03-10 10:39 | PN ---
Subjective Date of Service: 03/10/18 Interval History: Pt is feeling ok currently (he just received dilaudid). He denies any pain at this time. He is groggy and does not talk much but does confirm he tried to kill himself via overdose of insulin and seroquel. Objective Active Medications: Acetaminophen (Tylenol Tab*) 650 mg PO Q4H PRN PRN Reason: FEVER/PAIN Chlorpromazine HCl (Thorazine Inj*) 25 mg IV Q4H PRN PRN Reason: AGITATION Stop: 03/11/18 23:59 Dextrose (D50w Syringe 50 Ml*) 12.5 gm IV PUSH .FOR FS < 60 - SS PRN PRN Reason: FS < 60 Docusate Sodium (Colace Cap*) 200 mg PO DAILY PRN PRN Reason: CONSTIPATION Gabapentin (Neurontin Cap(*)) 300 mg PO TID KOMAL Insulin Glargine (Lantus(*)) 15 units SUBCUT Q24H KOMAL Insulin Human Lispro (Humalog*) 0 units SUBCUT ACHS KOMAL; Protocol Vital Signs - 8 hr 03/10/18 03/10/18 03/10/18 03:00 03:33 03:47 Temperature Pulse Rate Respiratory 16 16 Rate Blood Pressure 132/92 (mmHg) O2 Sat by Pulse Oximetry 03/10/18 03/10/18 03/10/18 04:00 04:01 05:53 Temperature 97.6 F Pulse Rate Respiratory 16 Rate Blood Pressure 155/88 (mmHg) O2 Sat by Pulse Oximetry 03/10/18 03/10/18 03/10/18 06:35 06:36 07:00 Temperature Pulse Rate Respiratory 18 Rate Blood Pressure 184/115 200/114 (mmHg) O2 Sat by Pulse Oximetry 03/10/18 03/10/18 03/10/18 07:11 07:14 07:18 Temperature Pulse Rate Respiratory 18 16 Rate Blood Pressure 163/112 (mmHg) O2 Sat by Pulse Oximetry 03/10/18 03/10/18 03/10/18 07:53 08:00 08:02 Temperature 99 F Pulse Rate 103 Respiratory 14 Rate Blood Pressure 136/91 (mmHg) O2 Sat by Pulse 98 Oximetry 03/10/18 03/10/18 03/10/18 09:00 09:56 09:57 Temperature Pulse Rate 103 Respiratory 16 16 Rate Blood Pressure 140/93 (mmHg) O2 Sat by Pulse 98 Oximetry 03/10/18 10:00 Temperature Pulse Rate Respiratory Rate Blood Pressure 125/81 (mmHg) O2 Sat by Pulse Oximetry Oxygen Devices in Use Now: None Appearance: Young male sleeping in bed, awakens to voice, NAD Eyes: No Scleral Icterus Ears/Nose/Mouth/Throat: Mucous Membranes Moist Respiratory: Symmetrical Chest Expansion and Respiratory Effort, Clear to Auscultation - anteriorly Cardiovascular: NL Sounds; No Murmurs; No JVD, RRR, No Edema Abdominal: NL Sounds; No Tenderness; No Distention Extremities: No Clubbing, Cyanosis Skin: No Nodules or Sclerosis Neurological: - - sleepy, slightly garbled speech Result Diagrams: 03/10/18 06:07 03/10/18 06:07 Microbiology and Other Data: Microbiology 03/09/18 20:20 Nasal Screen MRSA (PCR) - Final Nasal Mrsa Not Detected Assess/Plan/Problems-Billing Mr Simmons is a 38 yo M who has a h/o type I DM, chronic abdominal pain, gastroparesis, stage IV CKD, celiac disease and diabetic neuropathy who presented to the ER with a reported suicide attempt by overdosing on insulin and seroquel. - Patient Problems (1) Suicide attempt Current Visit: Yes Status: Acute Comment: Plan for psychiatry consultation today. Medically he is stable for evaluation. (2) Abdominal pain Current Visit: Yes Status: Acute Code(s): R10.9 - UNSPECIFIED ABDOMINAL PAIN SNOMED Code(s): 24004368 Comment: Will order prn tylenol and oxycodone, no more dilaudid. Pain is chronic and likely related to his diabetes. (3) Diabetic gastroparesis Current Visit: Yes Status: Acute Code(s): E11.43 - TYPE 2 DIABETES W DIABETIC AUTONOMIC (POLY)NEUROPATHY; K31.84 - GASTROPARESIS SNOMED Code(s): 740113588 Comment: Likely cause of pt's pain. Advance diet from clear liquids to diabetic. Will resume reglan 10mg BID. (4) DVT prophylaxis Current Visit: Yes Status: Acute Code(s): JNE7035 - SNOMED Code(s): 922631622 Comment: ambulation (5) Full code status Current Visit: No Status: Acute Onset Date: 06/14/14 Code(s): Z78.9 - OTHER SPECIFIED HEALTH STATUS SNOMED Code(s): 775320904
[2018-03-10] MEDS: Insulin GLARGINE(*) 1 UNITS UNIT SUBCUT SCH (11:46)
[2018-03-10] MEDS: Insulin LISPRO* 1 UNITS UNIT SUBCUT SCH ×3 (11:46→21:07)
[2018-03-10] MEDS: Gabapentin CAP(*) 300 MG PO SCH ×2 (12:54→21:10)
[2018-03-10] MEDS: oxyCODONE TAB* 5 MG TAB PO PRN ×2 (12:54→19:08)
[2018-03-10] MEDS ORDERED: Morphine INJ* 2 MG/ML 1 ML SYRINGE (TWO MG - NEW SYRINGE VERSION) IV PRN (14:15)
[2018-03-10] MEDS ORDERED: Morphine VIAL* 4 MG/ML VIAL (1 ml vial) ONE (14:21)
--- NOTE | 2018-03-10 15:37 | ADMNOTE ---
Identification - Identify Employment Status: Disabled Hx Psychiatric Hospitalization: Yes - last ever [facility] in January , last here Nov 2016 Prior Psychiatric Diagnosis: PTSD, MDD, Cannabis use disorder Arrived to Hospital Via: post 911 call History - Objective HPI: Overdosed on 30 units insulin and 1000 mg quetiapine. Reports SI continues and is due to not being able to do anything right, lack of social supports and chronic pain. Medically cleared today after overnight in ICU and brief transfer to medical floor. Multiple medical issues including DM1, diabetic nephropathy and neuropathy, gastroparesis, celiac disease. Reports history PTSD , Mood disorder (gives hx of hypomania but last 10 years ago, more likely MDD than BPAD). Also has endorsed history of cannabis use disorder, denies hx opioid and alcohol use disorders reported elsewhere in medical record. States only social support is GF recently d/c from [facility]. Past Medical History: DM1 with nephropathy, neuropathy, gastroparesis. Celiac dissease Exam Appearance: Well Developed/Nourished, Healthy Appearing, Thin Framed Hygiene: Normal Grooming: Disheveled Psychomotor Activities: Normal Exhibits Abnormal Movement: No Attitude and Relatedness: Irritable Eye Contact: Good - Speech Quality: Unpressured Latencies: Normal Quantity: Appropriate Patient's Decription of Mood: "Upset" Observed Affect: Labile Affect Consistent with: Dysphoria Patient's Thought Process: Coherent Thought Content: Yes Passive Wish, Yes Suicidal Planning, No Homicidal Ideation, No Paranoid Ideation Experiencing Hallucinations: No, Sensorium is Clear Level of Consciousness: Alert Orientation: Yes Intact, Yes Orientated to Time, Yes Orientated to Place, Yes Orientated to Person Impulse Control: Tenuous Insight and Judgement: Poor Impression - Impression Clinical Impression: Mr Simmons is a 38 year-old man who attempted suicide by OD with 30 units insulin and 1000 mg quetiapine, notably less than entire available amount of each med. Nevertheless endorses continued SI with plan to OD with insulin or leap from height. Names lack of efficacy as a person, lack of social supports, and chronic pain as reasons for SI. Reports history of PTSD and names mood disorder as bipolar, though today I was unable to elicit sufficient current symptom count/severity to substantiate these diagnoses, and will admit under established MDD and cannabis use disorder diagnoses. Inpatient DSM-V Dx: F33.9 - severe, without psychotic features Merits Inpatient Hospitalization: Yes Plan - Treatment Plan Treatment Plan: Admit for safety, assessment and treatment. Gather collateral. Consider risk/ benefit ratio of Seroquel with patient in deciding whether to resume this med. Encourage groups and engagement in milieu. Plan for discharge. Of note, patient was noncompliant with [facility] referral on last discharge from this psychiatric unit in November 2016. Continued Medication Management: Continue Outpt Medication Medications: Current Medications while on medical floor awaiting transfer: Acetaminophen (Tylenol Tab*) 650 mg PO Q4H PRN PRN Reason: FEVER/PAIN Dextrose (D50w Syringe 50 Ml*) 12.5 gm IV PUSH .FOR FS < 60 - SS PRN PRN Reason: FS < 60 Docusate Sodium (Colace Cap*) 200 mg PO DAILY PRN PRN Reason: CONSTIPATION Last Admin: 03/10/18 12:54 Dose: 200 mg Gabapentin (Neurontin Cap(*)) 300 mg PO TID KOMAL Last Admin: 03/10/18 12:54 Dose: 300 mg Insulin Glargine (Lantus(*)) 15 units SUBCUT Q24H KOMAL Last Admin: 03/10/18 11:46 Dose: 15 unit Insulin Human Lispro (Humalog*) 0 units SUBCUT ACHS KOMAL; Protocol Last Admin: 03/10/18 11:46 Dose: Not Given Metoclopramide HCl (Reglan Tab*) 10 mg PO 0700,1600 KOMAL Morphine Sulfate (Morphine Inj ((Syringe))*) 4 mg IV Q4H PRN PRN Reason: PAIN - MILD Last Admin: 03/10/18 14:23 Dose: 4 mg Oxycodone HCl (Roxycodone Tab*) 5 mg PO Q6H PRN PRN Reason: PAIN Last Admin: 03/10/18 12:54 Dose: 5 mg - Discharge Plan Discharge Plan: Outpatient Follow Up Outpatient Program: [facility]
--- NOTE | 2018-03-10 18:30 | CONS ---
CONSULTATION REPORT/HISTORY AND PHYSICAL NOTE: DATE OF CONSULT: 03/10/18 DATE OF ANTICIPATED ADMISSION: 03/10/18 REASON FOR CONSULT: The patient stated he has suicidal ideation. IDENTIFICATION: Mr. Simmons is a 38-year-old man who reports he is jobless, in a committed relationship, has a history of 4 prior suicide attempts and a long history of unsuccessful treatment for mental illness, described by him as bipolar disorder and PTSD. HISTORY OF PRESENT ILLNESS: The patient concurs with report in the medical record that he took 30 units of insulin and 1000 mg of Seroquel as a suicide attempt. He does not concur that these were likely sublethal amounts of these medications, stating that he was certain that with the sedation from the Seroquel and the effect of the insulin on his blood sugar, that he would with high likelihood go into a hypoglycemic coma and . He reports currently that he would still attempt suicide if he were discharged from the hospital. He states that he would leap from a height or again attempt to kill himself by overdose of insulin. The patient reports that the only person in his life who cares about him is his girlfriend. He reports he has a distant relationship with his family of origin. He does report, however, that he calls his mother about once a week. The patient is unable to elaborate on symptoms of his reported PTSD when asked to what he has flashbacks, he reports "trauma" and will not further elaborate. He does report having low mood and recurrent suicidal ideation due to feeling that he is unable to be efficacious in any aspect of his life and lacks significant support from family and friends aside from his girlfriend. He also cites chronic pain as a motivator of suicidal ideation. He does report on most nights getting adequate sleep if he gets to bed early in the evening. He reports waking up 90% of the time with abdominal pain. He does report that he enjoys listening to music. He reports that his mood most days "swings," going from high to low and back to high throughout the day. He reports that his energy is "pretty decent." His appetite is hit or miss," but his weight is "steady." He does report a history of hypomanic spells by his account. He says that when this occurs he will hitch-hike across the country. He does, however, report that this has not occurred for about 10 years at this point. His mood during these episodes he recalls as having being irritable. He states that without Seroquel, he will not sleep and has thoughts of hurting himself. He is unsure if the thoughts of hurting himself are due to some direct effect of lack of Seroquel or due to the effects of insomnia. When asked when life was last good for him, he states that he has not had a good life since the age of 13. PSYCHIATRIC HISTORY: The patient reports that his last psychiatric admission was this past January at [facility] after having presented to the emergency department of [facility], reporting that he had overdosed on insulin. He also reports hospitalization at [facility] this past September. His last psychiatric hospitalization before that was on this unit in November 2016. He has been admitted to this unit 3 times previous to that as well. He reports that he has not engaged in any consistent outpatient treatment. He reports that he did not present to [facility] as was planned after his November 2016 hospitalization here. He reports that his primary care physician has been prescribing to him his current medications of Seroquel and gabapentin as well as other medications for his medical condition including insulin and Reglan. FAMILY PSYCHIATRIC HISTORY: The patient reports he does not really know his family and cannot tell me whether anyone in his family has a psychiatric illness. SOCIAL HISTORY: The patient reports living alone in an apartment in [place]. He reports that the only important person in his life is his girlfriend who he also refers to as his . 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 PAST MEDICAL HISTORY: Type 1 diabetes mellitus, celiac disease, diabetic neuropathy, gastroparesis, chronic kidney disease stage 4. MENTAL STATUS EXAMINATION: This is a thin man with a full torrez with grooming and hygrine appropriate to the setting of inpatient hospitalization, dressed in hospital garb. He was interviewed lying in bed. He made good eye contact. He was at times mildly irritable and did display some distrust and mildly angry affect. He reported his mood is down. He denied any current or prior experience of hallucinations or paranoia. He reports continuing suicidal ideation to overdose on insulin or leap from a height. He denies any intent or plan to harm others. His insight and judgment are poor. His impulse control is poor. His speech has generally regular rate, rhythm, and volume. His thought process is linear and logical. He is alert and oriented to person, place, time , and situation. 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 He reports a remote history of abuse of cocaine, but denies any recent use. He reports having used LSD 4 to 5 times and having used psychedelic mushrooms as well, but again denies any recent use of these substances. He denies ever any abuse of opioid pain medications or heroin, stating that he only ever used opioid pain meds as prescribed. PHYSICAL EXAM: The patient is currently on the medical floor and receiving daily followup from medical staff. Please review their latest note for his review of systems and current physical examination. He was medically cleared by the hospitalist prior to transfer to the MHU. LABORATORY DATA: Toxicology screen was positive only for cannabinoids. Blood glucose, he had a peak of 436 at 6 a.m. this morning, but has come down to 168 as a recheck at 11 a.m. His creatinine is elevated to 2.67 with a BUN of 41. His hematocrit is low at 32 with an RDW of 16. DIAGNOSES: 1. Major depressive disorder, recurrent, severe, without psychiatric features, but rule out some form of bipolar disorder given his reported history of hypomania which, however, at this point is not clear enough to support any form of bipolar disorder diagnosis. 2. The patient does report a history of posttraumatic stress disorder, but at this point has been unable to give adequate report of symptoms to substantiate that as a currently active diagnosis. 3. 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 ASSESSMENT AND PLAN: Mr. Simmons is a 38-year-old single man who returns to this hospital after having overdosed on 30 units of insulin and 1000 mg of Seroquel. His girlfriend called 911 and he was brought in to the hospital and stabilized in the ICU. He has been transferred to the medical floor. He is appropriate for admission to the inpatient psychiatric unit once fully medically cleared. We will discuss with him his current medication regimen. Specifically, we should work with him to determine whether or not benefits of Seroquel outweigh potential harms as has been demonstrated by this current overdoes attempt. We will attempt to gather further information from his familiars in the community. Aftercare would likely be a referral to a psychiatric clinic in the area, but the patient has demonstrated in the past poor compliance with such referrals. We may also consider with the patient referral to substance abuse treatment programs per further information gathered about history of substance abuse and clarification of current and recent use. The patient will need to be also referred to continued medical care for his multiple medical issues. [id number]/[facility] #: [id number] DESHAUN
[2018-03-10] MEDS: Metoclopramide TAB* 10 MG PO SCH (19:08)
[2018-03-11] MEDS: oxyCODONE TAB* 5 MG TAB PO PRN ×3 (05:23→20:28)
[2018-03-11] MEDS: Gabapentin CAP(*) 300 MG PO SCH ×3 (09:18→20:29)
[2018-03-11] MEDS: Metoclopramide TAB* 10 MG PO SCH ×2 (09:18→16:48)
[2018-03-11] MEDS: Insulin LISPRO* 1 UNITS UNIT SUBCUT SCH ×4 (09:22→20:27)
[2018-03-11] MEDS: Insulin GLARGINE(*) 1 UNITS UNIT SUBCUT SCH (11:06)
[2018-03-11] MEDS ORDERED: Haloperidol INJ IV/IM* 5 MG/ML AMP ONE (13:48)
[2018-03-11] MEDS ORDERED: Benztropine INJ* 1 MG/ML 2 ML AMP ONE (13:49)
[2018-03-11] MEDS ORDERED: Benztropine INJ* 1 MG/ML 2 ML AMP IM ONE (15:00)
[2018-03-11] MEDS ORDERED: Haloperidol INJ IV/IM* 5 MG/ML AMP IM ONE (15:00)
--- NOTE | 2018-03-11 16:02 | PN ---
Subjective - Subjective Date of Service: 03/11/18 Service Type: 47959 Hosp care 15 min low complexity Subjective: Barron has been irritable, tense and agitated all morning complaining of anxiety and demanding Ativan. Later during the evaluation he was loud, agitated , using profane languages and at point started throwing furnitures at mock and glasses requiring calling for show of support and IM stats. During the meeting he declined any antidepressents or mood stabilizers, rather demanded Ativan or wanted to be discharged home so that he can kill himself. Objective - Appearance Appearance: Thin Framed Dysmorphic Features: No Hygiene: Mal-odorous Grooming: Disheveled - Behavior Psychomotor Activities: Abnormal-Increased Exhibits Abnormal Movement: No - Attitude and Relatedness Attitude and Relatedness: Manipulative Eye Contact: Poor - Speech Quality: Pressured Latencies: Short Quantity: Copious - Mood Patient's Decription of Mood: "Irritable" - Affect Observed Affect: Tense Affect Consistent with: Dysphoria - Thought Process Patient's Thought Process: Coherent, Goal Directed Thought Content: Yes Passive Wish, No Suicidal Planning, No Homicidal Ideation, No Paranoid Ideation - Sensorium Experiencing Hallucinations: No, Sensorium is Clear Type of Hallucinations: Visual: No, Auditory: No, Command: No - Level of Consciousness Level of Consciousness: Alert Orientation: Yes Intact, Yes Orientated to Time, Yes Orientated to Place, Yes Orientated to Person - Impulse Control Impulse Control: Impaired - Insight and Judgement Insight and Judgement: Impaired - Group Participation Particating in Group Activities: No - Medication Management Medication Management Adherence: Yes Assessment - Assessment Merits Inpatient Hospitalization: For Immediate Safety, For Stabilization Inpatient DSM-V Dx: 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 Nevertheless endorses continued SI with plan to OD with insulin or leap from height. Names lack of efficacy as a person, lack of social supports, and chronic pain as reasons for SI. Reports history of PTSD and names mood disorder as bipolar, though today I was unable to elicit sufficient current symptom count/severity to substantiate these diagnoses, and will admit under established MDD and cannabis use disorder diagnoses. Plan - Plan Treatment Plan: Admit for safety, assessment and treatment. Gather collateral. Consider risk/ benefit ratio of Seroquel with patient in deciding whether to resume this med. Encourage groups and engagement in milieu. Plan for discharge. Of note, patient was noncompliant with [facility] referral on last discharge from this psychiatric unit in November 2016. Continued Medication Management: Continue Outpt Medication Medications: Current Medications Acetaminophen (Tylenol Tab*) 650 mg PO Q4H PRN PRN Reason: FEVER/PAIN Dextrose (D50w Syringe 50 Ml*) 12.5 gm IV PUSH .FOR FS < 60 - SS PRN PRN Reason: FS < 60 Docusate Sodium (Colace Cap*) 200 mg PO DAILY PRN PRN Reason: CONSTIPATION Last Admin: 03/10/18 12:54 Dose: 200 mg Gabapentin (Neurontin Cap(*)) 300 mg PO TID [facility] Last Admin: 03/11/18 14:05 Dose: Not Given Insulin Glargine (Lantus(*)) 15 units SUBCUT Q24H [facility] Last Admin: 03/11/18 11:06 Dose: 15 unit Insulin Human Lispro (Humalog*) 0 units SUBCUT ACHS [facility]; Protocol Last Admin: 03/11/18 12:25 Dose: 4 units Metoclopramide HCl (Reglan Tab*) 10 mg PO 0700,1600 [facility] Last Admin: 03/11/18 09:18 Dose: 10 mg Oxycodone HCl (Roxycodone Tab*) 5 mg PO Q6H PRN PRN Reason: PAIN Last Admin: 03/11/18 11:08 Dose: 5 mg - Discharge Plan Discharge Plan: Outpatient Follow Up [facility]
--- NOTE | 2018-03-11 16:53 | CONSULT ---
Subjective Date of Service: 03/11/18 Interval History: Barron got very agitated today, was throwing furniture into plexiglass mock. Got 5mg haldol and cogentin. He attests to no abdominal pain currently. Usually epigastric. Has been eating mostly fruit cups and yogurts for weeks , loss of appetite and eating things that make him feel good. BG lowest of 90 in AM and high of 336 at noon. PCP is Dr. De Paz. says they were trying to get an US ("of stomach") and gastric emptying study but problem is he usually can't tolerate being npo. Attests he uses CBD oil and marijuana daily for the abdominal pain Refuses full physical exam: specifically auscultation of lungs and heart. Review of Systems - Measurements Intake and Output: Intake and Output Last 24 Hours 03/09/18 03/10/18 03/11/18 03/12/18 06:59 06:59 06:59 06:59 Intake Total 962 240 Output Total 1700 Balance -738 240 Weight 58.8 kg 58.513 kg Intake: IV Fluids 522 D10W 306 D5 55 D5W NS (0.9%) 161 Oral 440 240 Output: Urine 1700 Other: # Bowel Movements 0 # Voids 0 0 Objective Active Medications: Acetaminophen (Tylenol Tab*) 650 mg PO Q4H PRN PRN Reason: FEVER/PAIN Dextrose (D50w Syringe 50 Ml*) 12.5 gm IV PUSH .FOR FS < 60 - SS PRN PRN Reason: FS < 60 Docusate Sodium (Colace Cap*) 200 mg PO DAILY PRN PRN Reason: CONSTIPATION Last Admin: 03/10/18 12:54 Dose: 200 mg Gabapentin (Neurontin Cap(*)) 300 mg PO TID [facility] Last Admin: 03/11/18 14:05 Dose: Not Given Insulin Glargine (Lantus(*)) 15 units SUBCUT Q24H [facility] Last Admin: 03/11/18 11:06 Dose: 15 unit Insulin Human Lispro (Humalog*) 0 units SUBCUT ACHS [facility]; Protocol Last Admin: 03/11/18 12:25 Dose: 4 units Metoclopramide HCl (Reglan Tab*) 10 mg PO 0700,1600 [facility] Last Admin: 03/11/18 09:18 Dose: 10 mg Oxycodone HCl (Roxycodone Tab*) 5 mg PO Q6H PRN PRN Reason: PAIN Last Admin: 03/11/18 11:08 Dose: 5 mg Vital Signs - 8 hr 03/11/18 03/11/18 03/11/18 09:18 11:08 11:20 Respiratory 16 16 16 Rate 03/11/18 03/11/18 03/11/18 12:00 14:03 14:04 Respiratory 16 16 20 Rate 03/11/18 16:29 Respiratory 16 Rate Oxygen Devices in Use Now: None Appearance: NAD, initially underneath covers. Respiratory: - - refused exam Cardiovascular: - - refused exam Abdominal: - - no pain on palpation. soft, nondistended. no rebound or guarding. very cachectic. Extremities: No Edema Skin: No Rash or Ulcers Neurological: Alert and Oriented x 3 Nutrition: Taking PO's Result Diagrams: 03/10/18 06:07 03/10/18 06:07 Additional Lab and Data: Laboratory Results - last 24 hr 03/10/18 03/10/18 03/11/18 14:06 20:56 05:18 POC Glucose (mg/dL) 159 H 332 H 90 03/11/18 03/11/18 03/11/18 07:38 12:21 16:38 POC Glucose (mg/dL) 214 H 336 H 97 Microbiology and Other Data: Microbiology 03/09/18 20:20 Nasal Nasal Screen MRSA (PCR) - Final Mrsa Not Detected Assessment/Plan - Billing Mr Simmons is a 38 yo M who has a h/o type I DM, chronic abdominal pain, gastroparesis, stage IV CKD, celiac disease and diabetic neuropathy who presented to the ER with a reported suicide attempt by overdosing on insulin and seroquel. He was medically stabilized and transferred to [facility]. Medicine still consulting for diabetes management. #DMT1 - labile blood sugars in the setting of CKD Stage IV and inconsistent appetite. - A1C 9.6 - his home dose was 24U but would continue reduced dose of 15U with sliding scale coverage qachs. #Diabetic Gastroparesis - continue reglan - blood glucose control - his PCP was considering repeating the gastric emptying study but not clear what the utility is at this juncture. - likely the source (along with intermittently going in DKA?) of his chronic abdominal pain. Attests he takes CBD oil and marijuana daily for the abdominal pain as outpatient. Here he is on oxycodone 5mg q6 h prn but likely would not discharge with this medication given his suicidal ideation. #CKD Stage IV - recommend establishing with Dive Superintendent as outpatient - diabetic nephropathy CODE: FULL dispo: Psychiatry is primary, medicine consulting .
[2018-03-12] MEDS: Insulin LISPRO* 1 UNITS UNIT SUBCUT SCH ×5 (02:40→20:04)
[2018-03-12] MEDS: oxyCODONE TAB* 5 MG TAB PO PRN ×3 (02:41→17:22)
[2018-03-12] MEDS: Metoclopramide TAB* 10 MG PO SCH ×2 (07:50→16:49)
[2018-03-12] MEDS: Gabapentin CAP(*) 300 MG PO SCH ×3 (07:50→20:06)
[2018-03-12] MEDS: Insulin GLARGINE(*) 1 UNITS UNIT SUBCUT SCH (11:54)
--- NOTE | 2018-03-12 12:55 | PN ---
Subjective - Subjective Date of Service: 03/12/18 Service Type: 79116 Hosp care 25 min moderate complexity Subjective: Mr Simmons reported today that his mood is 'flat' and 'down', that he cannot find a way to kill himself on the unit, and that he would attempt to kill himself if he left the unit today. He reports having slept from 8pm to 2am straight through, then drifting 'in and out' for several hours. He reports continued nausea and abdominal pain. He requests that we replace oxycodone with a 'GI cocktail' for abdominal pain. He agrees to start Remeron 15 mg HS against insomnia and depression, melatonin 3 mg HS against insomnia, and prn Zofran in case of breakthrough nausea while using Reglan. Discussed with him using other staff to help deal with SI rather than throwing furniture at windows to try to obtain broken glass with which to cut himself. Objective - Appearance Appearance: Well Developed/Nourished, Thin Framed Dysmorphic Features: No Hygiene: Normal Grooming: Disheveled - Behavior Psychomotor Activities: Normal Exhibits Abnormal Movement: No - Attitude and Relatedness Attitude and Relatedness: Superficially Cooperative Eye Contact: Good - Speech Quality: Unpressured Latencies: Normal Quantity: Appropriate - Mood Patient's Decription of Mood: "Flat, down" - Affect Observed Affect: Non-labile Affect Consistent with: Dysphoria - Thought Process Patient's Thought Process: Coherent Thought Content: Yes Passive Wish, Yes Suicidal Planning, No Homicidal Ideation, No Paranoid Ideation - Sensorium Experiencing Hallucinations: No, Sensorium is Clear - Level of Consciousness Level of Consciousness: Alert Orientation: Yes Intact, Yes Orientated to Time, Yes Orientated to Place, Yes Orientated to Person - Impulse Control Impulse Control: Tenuous - Insight and Judgement Insight and Judgement: Poor - Group Participation Particating in Group Activities: No - Medication Management Medication Management Adherence: Yes Assessment - Assessment Merits Inpatient Hospitalization: For Immediate Safety, For Stabilization, For Discharge Planning, Pending Safe DC Plan Inpatient DSM-V Dx: 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 Nevertheless endorses continued SI with plan to OD with insulin or leap from height if he left the [facility] today. Names lack of efficacy as a person, lack of social supports, and chronic pain as reasons for SI. He threw a table over the weekend and had contentious interactions with Dr Becerril. He will likely remain difficult to stabilize acutely from SI with plan and to engage in any local intermodal truck driver plan of care to address his self-defeating behaviors. Plan - Plan Treatment Plan: Continue admission for safety, assessment, and treatment. Gather collateral. Mr Simmons requests that his girlfriend be allowed to visit him despite having been a patient here within the past 6 months, stating tearfully that she is his only support. He agreed to med changes noted above. No plan to replace analgesics for abdominal pain with 'GI cocktail.' Encourage groups and engagement in milieu and use of conversation with staff to calm from agitation and SI. Plan for discharge, with it having been noted that patient has been noncompliant with outpatient referrals. He reports plan to move to [facility] and to receive services from [facility], which he states provides better care than [facility]. Continued Medication Management: Different Medication Medications: Current Medications Acetaminophen (Tylenol Tab*) 650 mg PO Q4H PRN PRN Reason: FEVER/PAIN Dextrose (D50w Syringe 50 Ml*) 12.5 gm IV PUSH .FOR FS < 60 - SS PRN PRN Reason: FS < 60 Docusate Sodium (Colace Cap*) 200 mg PO DAILY PRN PRN Reason: CONSTIPATION Last Admin: 03/10/18 12:54 Dose: 200 mg Gabapentin (Neurontin Cap(*)) 300 mg PO TID [facility] Last Admin: 03/12/18 07:50 Dose: 300 mg Haloperidol (Haldol Tab*) 5 mg PO Q6H PRN PRN Reason: AGITATION Insulin Glargine (Lantus(*)) 15 units SUBCUT Q24H [facility] Last Admin: 03/12/18 11:54 Dose: 15 unit Insulin Human Lispro (Humalog*) 0 units SUBCUT [facility]; Protocol Last Admin: 03/12/18 11:54 Dose: 4 units Metoclopramide HCl (Reglan Tab*) 10 mg PO 0700,1600 [facility] Last Admin: 03/12/18 07:50 Dose: 10 mg Oxycodone HCl (Roxycodone Tab*) 5 mg PO Q6H PRN PRN Reason: PAIN Last Admin: 03/12/18 08:50 Dose: 5 mg Add prn Zofran for nausea, Remeron 15 mg HS, melatonin 3 mg HS. - Discharge Plan Discharge Plan: Outpatient Follow Up
[2018-03-12] MEDS ORDERED: Mirtazapine TAB* 15 MG PO PRN (13:14)
[2018-03-12] MEDS: Haloperidol TAB* 5 MG PO PRN (15:58)
[2018-03-12] MEDS: Ondansetron ODT TAB* 4 MG PO PRN (16:49)
[2018-03-12] MEDS: Melatonin 3 MG TAB PO SCH (20:06)
[2018-03-13] MEDS: Ondansetron ODT TAB* 4 MG PO PRN ×2 (04:22→16:53)
[2018-03-13] MEDS: oxyCODONE TAB* 5 MG TAB PO PRN ×2 (04:23→23:33)
[2018-03-13] MEDS: Metoclopramide TAB* 10 MG PO SCH ×2 (07:32→15:57)
[2018-03-13] MEDS: Haloperidol TAB* 5 MG PO PRN (07:32)
[2018-03-13] MEDS: Insulin LISPRO* 1 UNITS UNIT SUBCUT SCH ×4 (07:34→23:31)
--- NOTE | 2018-03-13 10:40 | PN ---
Subjective - Subjective Date of Service: 03/13/18 Service Type: 90863 Hosp care 25 min moderate complexity Subjective: I was informed in today's treatment team meeting that Mr Simmons reported to staff that he wanted another doctor because he thinks I do not believe he will kill himself. Patient refused to arise from bed to speak with me today. Although he started our interaction by angrily stating that he did not want to talk with me, I gathered in our meeting that he continues to feel 'down' and is not having any psychotic symptoms. He reported that if he left the hospital he would kill himself. He said he was upset that he had not started an antidepressant. When asked if he had success with antidepressant trials, he said Effexor had helped, so I agreed to order this medication for him. I also informed him that Remeron, though ordered as a PRN for sleep, is an antidepressant medication. I also discussed with him the possible need for half-way care if we are unable to gather from him that he will be safe from suicide if discharged. When informed that the treatment team was initiating the process of transfer to marine oil terminal superintendent care in the [facility], he remained silent until after I left the room. A few minutes later, when I went to discuss with him potential interaction of venlafaxine with metoclopromide that could result in dystonia or 5HT syndrome, staff informed me he was yelling on the phone to someone about me. He refused to meet with me when I called after him that I had to discuss with him this potential interaction between the proposed trial of Effexor and his established medication, Reglan. I spoke with patient's 1:1 Mathieu, requesting that he assess patient further for safety, as he would not state clearly a denial of intent to harm himself on the unit. Objective - Appearance Appearance: Thin Framed Dysmorphic Features: No Hygiene: Normal Grooming: Disheveled - Behavior Psychomotor Activities: Abnormal-Decreased - during interview, later agitated/ increased Exhibits Abnormal Movement: No - Attitude and Relatedness Attitude and Relatedness: Hostile Eye Contact: Poor - Speech Quality: Pressured Latencies: Short Quantity: Terse - Mood Patient's Decription of Mood: "Down" - Affect Observed Affect: Labile Affect Consistent with: Dysphoria - Thought Process Patient's Thought Process: Coherent, Goal Directed Thought Content: Yes Passive Wish, Yes Suicidal Planning, No Homicidal Ideation, No Paranoid Ideation - Sensorium Experiencing Hallucinations: No, Sensorium is Clear - Level of Consciousness Level of Consciousness: Agitated Orientation: Yes Intact, Yes Orientated to Time, Yes Orientated to Place, Yes Orientated to Person - Impulse Control Impulse Control: Poor - Insight and Judgement Insight and Judgement: Poor - Group Participation Particating in Group Activities: No - Medication Management Medication Management Adherence: Yes Assessment - Assessment Merits Inpatient Hospitalization: For Immediate Safety, For Stabilization, To Initiate Treatment, For Ongoing Evaluation, For Discharge Planning, Pending Safe DC Plan Inpatient DSM-V Dx: 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 Nevertheless endorses continued SI with plan if he left the [facility] today. Named on day of admission lack of efficacy as a person, lack of social supports, and chronic pain as reasons for SI. He threw a table over the weekend and had contentious interactions with Dr Becerril. He will likely remain difficult to stabilize acutely from SI with plan and to engage in any marine oil terminal superintendent plan of care to address his self-defeating behaviors. Today he has requested a change of doctor, citing his belief that I do not think he will kill himself if he leaves the hospital, likely based on my observation to him that it may be significant that he made his attempt at suicide using less than the full available amounts of medications, possibly indicating another motivation for his attempt than to be . He also complains that he has not been prescribed an antidepressant, only PRN Remeron for sleep. He also complains that I have not written an order for his girlfriend to come visit him on the unit, contravening the unit policy that former patients must wait 6 months before coming onto the unit to visit other patients. Other staff who have worked with his girlfriend have also assessed such a visit as being counterproductive to her stability, and have argued against such a contravening order. I attempted to discuss with Mr Simmons potential dystonia due to interaction of Effexor with Reglan, but he refuses to talk with me, so I must hold off on ordering Effexor until I can ensure he understands this risk and accepts it. The director social service on the case, Adriel, is initiating the process toward transfer to marine oil terminal superintendent care at the [facility], as Mr Simmons has shown no signs of movement toward safety from his suicidal plans. Plan - Plan Treatment Plan: Continue admission for safety, assessment, and treatment. Gather collateral. Mr Simmons requests that his girlfriend be allowed to visit him despite having been a patient here within the past 6 months, stating tearfully that she is his only support. Staff argues against this as countertherapeutic for both Mr Simmons and his girlfriend, so I am not ordering unit policy to be ignored in this case. He agreed to med changes yesterday, but complains today that he has not been ordered an antidepressant. No plan to replace analgesics for abdominal pain with 'GI cocktail', as this is not generally given for chronic treatment of abdominal pain. Will hold off on ordering Effexor until Mr Simmons permits conversation to confirm his understanding and acceptance of potential risks of dystonia and 5HT syndrome due to potential interaction with Reglan. Will instead change order of antidepressant Remeron to standing dose schedule. Discussed with ADOBE MAKER staff patient's request to change doctors, but both declined taking over care of patient. It is unclear if a change of doctor would improve care for Mr Simomns, who has already had contentious interactions with his only other provider, Dr Becerril. He appears likely to take an adversarial stance toward any provider who assesses his needs objectively and therefore plans treatment not in perfect alignment with Mr Simmons's demands, which may not be in the best interest of this patient stating his commitment to killing himself if given the opportunity. Encourage groups and engagement in milieu and use of conversation with staff to calm from agitation and SI. Plan for discharge, with possible transfer to marine oil terminal superintendent care to stabilize more fully from sucidal plans. He reports plan to move to [facility] and to receive services from [facility], which he states provides better care than [facility]. Medications: Current Medications Acetaminophen (Tylenol Tab*) 650 mg PO Q4H PRN PRN Reason: FEVER/PAIN Dextrose (D50w Syringe 50 Ml*) 12.5 gm IV PUSH .FOR FS < 60 - SS PRN PRN Reason: FS < 60 Docusate Sodium (Colace Cap*) 200 mg PO DAILY PRN PRN Reason: CONSTIPATION Last Admin: 03/10/18 12:54 Dose: 200 mg Gabapentin (Neurontin Cap(*)) 300 mg PO TID [facility] Last Admin: 03/12/18 20:06 Dose: 300 mg Haloperidol (Haldol Tab*) 5 mg PO Q6H PRN PRN Reason: AGITATION Last Admin: 03/13/18 07:32 Dose: 5 mg Insulin Glargine (Lantus(*)) 15 units SUBCUT Q24H [facility] Last Admin: 03/12/18 11:54 Dose: 15 unit Insulin Human Lispro (Humalog*) 0 units SUBCUT ACHS [facility]; Protocol Last Admin: 03/13/18 07:34 Dose: Not Given Melatonin (Melatonin) 3 mg PO BEDTIME [facility] Last Admin: 03/12/18 20:06 Dose: 3 mg Metoclopramide HCl (Reglan Tab*) 10 mg PO 0700,1600 [facility] Last Admin: 03/13/18 07:32 Dose: 10 mg Mirtazapine (Remeron Tab*) 15 mg PO BEDTIME PRN PRN Reason: SLEEP Ondansetron HCl (Zofran Odt Tab*) 4 mg PO Q8H PRN PRN Reason: NAUSEA/VOMITING Last Admin: 03/13/18 04:22 Dose: 4 mg Oxycodone HCl (Roxycodone Tab*) 5 mg PO Q6H PRN PRN Reason: PAIN Last Admin: 03/13/18 04:23 Dose: 5 mg - Discharge Plan Discharge Plan: Consider Longer Term Tx - initiating process toward half-way care at [facility]
[2018-03-13] MEDS: Gabapentin CAP(*) 300 MG PO SCH ×3 (10:47→23:35)
[2018-03-13] MEDS: Insulin GLARGINE(*) 1 UNITS UNIT SUBCUT SCH (11:37)
[2018-03-13] MEDS ORDERED: Venlafaxine EXT RELEASE CAP* 75 MG PO ONE (15:46)
[2018-03-13] MEDS ORDERED: Al Hydrox/Mg Hydrox/Simet LIQ* 30 ML UDC PO PRN (15:48)
[2018-03-13] MEDS: Melatonin 3 MG TAB PO SCH (23:33)
[2018-03-13] MEDS: Mirtazapine TAB* 15 MG PO SCH (23:33)
[2018-03-14] MEDS: Ondansetron ODT TAB* 4 MG PO PRN ×2 (02:45→10:48)
[2018-03-14] MEDS: oxyCODONE TAB* 5 MG TAB PO PRN ×2 (06:40→19:39)
[2018-03-14] MEDS: Insulin LISPRO* 1 UNITS UNIT SUBCUT SCH ×4 (08:07→21:17)
[2018-03-14] MEDS: Gabapentin CAP(*) 300 MG PO SCH ×3 (08:09→20:31)
[2018-03-14] MEDS: Metoclopramide TAB* 10 MG PO SCH ×2 (08:09→17:33)
[2018-03-14] MEDS: Insulin GLARGINE(*) 1 UNITS UNIT SUBCUT SCH (11:54)
[2018-03-14] MEDS: Haloperidol TAB* 5 MG PO PRN (13:08)
--- NOTE | 2018-03-14 13:35 | PN ---
Subjective - Subjective Date of Service: 03/14/18 Service Type: 16698 Hosp care 25 min moderate complexity Subjective: Mr Simmons reports today that he vomited after taking Effexor, so does not wish to retry the medication even at 37.5 mg. Agreed to trial of bupropion, which he reports has been helpful. He reports continued low mood, and says he does not know now if he would kill himself if he left the hospital. He says he will not try to kill himself on the unit. He says he does not want to go to the [facility], as this would result in an interruption to his disability benefits. He would like to relocate to [place] and pursue care in [facility]. Objective - Appearance Appearance: Thin Framed Dysmorphic Features: No Hygiene: Mal-odorous Grooming: Disheveled - Behavior Psychomotor Activities: Abnormal-Increased Exhibits Abnormal Movement: No - Attitude and Relatedness Attitude and Relatedness: Superficially Cooperative Eye Contact: Good - Speech Quality: Unpressured Latencies: Normal Quantity: Appropriate - Mood Patient's Decription of Mood: "Depressed" - Affect Observed Affect: Labile Affect Consistent with: Dysphoria - Thought Process Patient's Thought Process: Coherent, Goal Directed Thought Content: Yes Passive Wish, Yes Suicidal Planning, No Homicidal Ideation, No Paranoid Ideation - Sensorium Experiencing Hallucinations: No, Sensorium is Clear - Level of Consciousness Level of Consciousness: Alert Orientation: Yes Intact, Yes Orientated to Time, Yes Orientated to Place, Yes Orientated to Person - Impulse Control Impulse Control: Tenuous - Insight and Judgement Insight and Judgement: Poor - Group Participation Particating in Group Activities: No - Medication Management Medication Management Adherence: Yes Assessment - Assessment Merits Inpatient Hospitalization: For Immediate Safety, For Stabilization, For Discharge Planning, Pending Safe DC Plan Inpatient DSM-V Dx: 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 Has been endorsing continued SI with plan if he left the [facility], though today reports he does not know if he would kill himself if he left the unit. Named on day of admission lack of efficacy as a person, lack of social supports, and chronic pain as reasons for SI. He threw a table last weekend and had contentious interactions with Dr Becerril. He will likely remain difficult to stabilize acutely from SI with plan and to engage in any half-way plan of care to address his self-defeating behaviors. Today he rescinded his request for a change of doctor. He agrees to a trial of bupropion against depression. The elementary school social worker on the case, Adriel, is initiating the process toward transfer to moth exterminator care at the [facility], as Mr Simmons remains equivocal in report of any movement toward safety from his suicidal plans. Plan - Plan Treatment Plan: Continue admission for safety, assessment, and treatment. Gather collateral. Mr Simmons requests that his girlfriend be allowed to visit him despite having been a patient here within the past 6 months, stating tearfully that she is his only support. Staff argues against this as countertherapeutic for both Mr Simmons and his girlfriend, so I am not ordering unit policy to be ignored in this case. He agreed to addition of bupropion against depressive symptoms. No plan to replace analgesics for abdominal pain with 'GI cocktail', as this is not generally given for chronic treatment of abdominal pain. Mr Simmons appears likely to take an adversarial stance toward any provider who assesses his needs objectively and therefore plans treatment not in perfect alignment with his demands, which may not be in the best interest of this patient stating his commitment to killing himself if given the opportunity. Encourage groups and engagement in milieu and use of conversation with staff to calm from agitation and SI. Plan for discharge, with possible transfer to moth exterminator care to stabilize more fully from suicidal plans. He reports plan to move to [facility] and to receive services from [facility], which he states provides better care than [facility]. Medications: Current Medications Acetaminophen (Tylenol Tab*) 650 mg PO Q4H PRN PRN Reason: FEVER/PAIN Al Hydrox/Mg Hydrox/Simethicone (Maalox Plus*) 30 ml PO Q4H PRN PRN Reason: DYSPEPSIA Dextrose (D50w Syringe 50 Ml*) 12.5 gm IV PUSH .FOR FS < 60 - SS PRN PRN Reason: FS < 60 Docusate Sodium (Colace Cap*) 200 mg PO DAILY PRN PRN Reason: CONSTIPATION Last Admin: 03/10/18 12:54 Dose: 200 mg Gabapentin (Neurontin Cap(*)) 300 mg PO TID [facility] Last Admin: 03/14/18 13:08 Dose: 300 mg Haloperidol (Haldol Tab*) 5 mg PO Q6H PRN PRN Reason: AGITATION Last Admin: 03/14/18 13:08 Dose: 5 mg Insulin Glargine (Lantus(*)) 18 units SUBCUT Q24H [facility] Last Admin: 03/14/18 11:54 Dose: 18 units Insulin Human Lispro (Humalog*) 0 units SUBCUT [facility]; Protocol Last Admin: 03/14/18 12:19 Dose: 4 units Melatonin (Melatonin) 3 mg PO BEDTIME [facility] Last Admin: 03/13/18 23:33 Dose: 3 mg Metoclopramide HCl (Reglan Tab*) 10 mg PO 0700,1600 [facility] Last Admin: 03/14/18 08:09 Dose: 10 mg Mirtazapine (Remeron Tab*) 15 mg PO BEDTIME [facility] Last Admin: 03/13/18 23:33 Dose: 15 mg Ondansetron HCl (Zofran Odt Tab*) 4 mg PO Q8H PRN PRN Reason: NAUSEA/VOMITING Last Admin: 03/14/18 10:48 Dose: 4 mg Oxycodone HCl (Roxycodone Tab*) 5 mg PO Q6H PRN PRN Reason: PAIN Last Admin: 03/14/18 06:40 Dose: 5 mg - Discharge Plan Discharge Plan: Consider Longer Term Tx
[2018-03-14] MEDS: Docusate CAP* 100 MG PO PRN (17:14)
[2018-03-14] MEDS: Mirtazapine TAB* 15 MG PO SCH (20:31)
[2018-03-14] MEDS: Melatonin 3 MG TAB PO SCH (20:31)
[2018-03-15] MEDS: oxyCODONE TAB* 5 MG TAB PO PRN (06:10)
[2018-03-15] MEDS: Insulin LISPRO* 1 UNITS UNIT SUBCUT SCH ×4 (07:57→20:16)
[2018-03-15] MEDS: Gabapentin CAP(*) 300 MG PO SCH ×3 (09:25→20:23)
[2018-03-15] MEDS: Metoclopramide TAB* 10 MG PO SCH (09:25)
[2018-03-15] MEDS: Insulin GLARGINE(*) 1 UNITS UNIT SUBCUT SCH (11:52)
[2018-03-15] MEDS: Ondansetron ODT TAB* 4 MG PO PRN (15:24)
[2018-03-15] MEDS: Melatonin 3 MG TAB PO SCH (20:23)
[2018-03-15] MEDS: Mirtazapine TAB* 15 MG PO SCH (20:23)
[2018-03-16] MEDS: oxyCODONE TAB* 5 MG TAB PO PRN ×3 (01:38→19:14)
[2018-03-16] MEDS: Ondansetron ODT TAB* 4 MG PO PRN ×2 (01:40→18:07)
[2018-03-16] MEDS: Metoclopramide TAB* 10 MG PO SCH ×3 (02:22→18:08)
[2018-03-16] MEDS: Insulin LISPRO* 1 UNITS UNIT SUBCUT SCH ×4 (06:28→20:30)
[2018-03-16] MEDS: Gabapentin CAP(*) 300 MG PO SCH ×3 (09:00→20:28)
[2018-03-16] MEDS: Insulin GLARGINE(*) 1 UNITS UNIT SUBCUT SCH (11:43)
[2018-03-16] MEDS: Melatonin 3 MG TAB PO SCH (20:29)
[2018-03-16] MEDS: Mirtazapine TAB* 15 MG PO SCH (20:29)
[2018-03-17] MEDS: Metoclopramide TAB* 10 MG PO SCH ×2 (08:23→16:32)
[2018-03-17] MEDS: Gabapentin CAP(*) 300 MG PO SCH ×3 (08:23→20:59)
[2018-03-17] MEDS: Insulin LISPRO* 1 UNITS UNIT SUBCUT SCH ×4 (08:24→20:47)
[2018-03-17] MEDS: Insulin GLARGINE(*) 1 UNITS UNIT SUBCUT SCH (11:41)
--- NOTE | 2018-03-17 11:53 | PN ---
Subjective - Subjective Date of Service: 03/17/18 Service Type: 52300 Hosp care 25 min moderate complexity Subjective: Paco reports today doing much better, with "good mood past couple days" and with remission of SI. He reports that he has been talking with his supports outside the hospital, his friend Ignacio and his girlfriend Liz, and that he feels they care about him and this helps him feel better. Also reports that he "has a concrete plan to get out of this town." Still awakening daily with abdominal pain. Objective - Appearance Appearance: Thin Framed Dysmorphic Features: No Hygiene: Normal Grooming: Disheveled - Behavior Psychomotor Activities: Normal Exhibits Abnormal Movement: No - Attitude and Relatedness Attitude and Relatedness: Cooperative Eye Contact: Good - Speech Quality: Unpressured Latencies: Normal Quantity: Appropriate - Mood Patient's Decription of Mood: "Good" - Affect Observed Affect: Fair Affect Consistent with: Euthymia - Thought Process Patient's Thought Process: Coherent, Goal Directed Thought Content: No Passive Wish, No Suicidal Planning, No Homicidal Ideation, No Paranoid Ideation - Sensorium Experiencing Hallucinations: No, Sensorium is Clear - Level of Consciousness Level of Consciousness: Alert Orientation: Yes Intact, Yes Orientated to Time, Yes Orientated to Place, Yes Orientated to Person - Impulse Control Impulse Control: Intact - Insight and Judgement Insight and Judgement: Poor - Group Participation Particating in Group Activities: Yes - Medication Management Medication Management Adherence: Yes Assessment - Assessment Merits Inpatient Hospitalization: Consolidate Improvements, For Discharge Planning Inpatient DSM-V Dx: 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 Has been endorsing continued SI with plan if he left the [facility], though today reports would not kill himself if he left the unit. Named on day of admission lack of efficacy as a person, lack of social supports, and chronic pain as reasons for SI. He has had nor recurrence thought the weekend of out of control behaviors as described in prior notes. Bupropion was not initiated again due to Cyp2D6 inhibition mediated potential interaction with long established Reglan therapy. Continued on Remeron and doing well. Likely to discharge on that medication against depressive symptoms and insomnia. Plan - Plan Treatment Plan: Continue admission for safety, assessment, and treatment. Gather collateral. Mr Simmons had requested that his girlfriend be allowed to visit him despite having been a patient here within the past 6 months, but today reports that he understands why she cannot come visit. With SI remitted and with improved interactions with staff, Mr Simmons appears to be nearing readiness for discharge home, no longer needing intermediate school teacher care per current presentation. He reports plan to move to [facility] and to [facility], which he states provides better care than [facility]. Medications: Current Medications Acetaminophen (Tylenol Tab*) 650 mg PO Q4H PRN PRN Reason: FEVER/PAIN Al Hydrox/Mg Hydrox/Simethicone (Maalox Plus*) 30 ml PO Q4H PRN PRN Reason: DYSPEPSIA Dextrose (D50w Syringe 50 Ml*) 12.5 gm IV PUSH .FOR FS < 60 - SS PRN PRN Reason: FS < 60 Docusate Sodium (Colace Cap*) 200 mg PO DAILY PRN PRN Reason: CONSTIPATION Last Admin: 03/14/18 17:14 Dose: 200 mg Gabapentin (Neurontin Cap(*)) 300 mg PO TID [facility] Last Admin: 03/17/18 08:23 Dose: 300 mg Haloperidol (Haldol Tab*) 5 mg PO Q6H PRN PRN Reason: AGITATION Last Admin: 03/14/18 13:08 Dose: 5 mg Insulin Glargine (Lantus(*)) 15 units SUBCUT Q24H [facility] Last Admin: 03/17/18 11:41 Dose: 15 units Insulin Human Lispro (Humalog*) 0 units SUBCUT [facility]; Protocol Last Admin: 03/17/18 11:41 Dose: 5 units Melatonin (Melatonin) 3 mg PO BEDTIME [facility] Last Admin: 03/16/18 20:29 Dose: 3 mg Metoclopramide HCl (Reglan Tab*) 10 mg PO 0700,1600 [facility] Last Admin: 03/17/18 08:23 Dose: 10 mg Mirtazapine (Remeron Tab*) 15 mg PO BEDTIME [facility] Last Admin: 03/16/18 20:29 Dose: 15 mg Ondansetron HCl (Zofran Odt Tab*) 4 mg PO Q8H PRN PRN Reason: NAUSEA/VOMITING Last Admin: 03/16/18 18:07 Dose: 4 mg Oxycodone HCl (Roxycodone Tab*) 5 mg PO Q6H PRN PRN Reason: PAIN - Discharge Plan Discharge Plan: Outpatient Follow Up Outpatient Program: [facility] perhaps
--- NOTE | 2018-03-17 12:16 | PN ---
Progress Note - Progress Note Date of Service: 03/17/18 Note: Blood glucose values reviewed. Patient with BG 30s last evening after receiving 15 units Lantus at 11am. However, patient's glucose was 219 this AM and 400 today at 1100. Recommend reduced dose lantus to 10 units and increase lispro SSI for now. Would recommend consult with Dr. Foley, consult placed, will try to reach him today.
[2018-03-17] MEDS ORDERED: Insulin LISPRO* 1 UNITS UNIT SUBCUT ONE (16:00)
--- NOTE | 2018-03-17 16:18 | CONSULT ---
Consult Consult: [facility] Inpatient Consult Note Date of Consult: 03/17/18 Reason for Consult: hypoglycemia Reason for Admission: suicide attempt ASSESSMENT: 38 yo M with T1DM on multi-dose insulin regimen with A1c >9% for many years, admitted 03/09/18 for suicide attempt with medications, now experiencing hypoglycemia and rebound hyperglycemia. His basal insulin requirement at home is approximately 12-14 units/day = 0.25 units/kg/day. His bolus insulin requirement is at least 4 units with most meals, plus sliding scale for correction of BG>200. I recommend the following adjustments to insulin regimen this admission and at discharge. PLAN: - increase insulin glargine to 12 units once daily - start scheduled insulin lispro 4 units given immediately after meal - hold if NPO, patient does not year or BG<100 - change insulin lispro sliding scale, as follows: - BG 201-250 -- 1 extra unit - BG 251-300 -- 2 extra units - BG 301-350 -- 3 extra units - BG 351-400 -- 4 extra units - BG >400 ----- 5 extra units and call MD - do NOT give sliding scale at bedtime - follow-up with myself in 2-3 weeks SUBJECTIVE: History of Present Illness: 38 yo M with multiple medical issues including severe, insulin-deficient T1DM (complicated by advanced nephropathy, neuropathy , gastroparesis) and celiac disease, who presented via ambulance after attempted suicide with 30 units insulin and 1000 mg quetiapine. He was recently hospitalized in [place], [place] for depression and reports ongoing suicidality due to feelings of failure, lack of social supports and chronic pain. Past Medical History: 1. T1DM, A1c 9.6% 2. CKD-4 with macroalbuminuria 3. Mood disorder (unipolar vs bipolar depression) Medications Prior to Admission: Insulin LISPRO* [HumaLOG*] 0 units SUBCUT DIRECTED 30 Days #30 unit 08/13/17 [Rx Confirmed 02/12/18] QUEtiapine TAB* [Seroquel 100 MG *] 200 mg PO BEDTIME 30 Days #30 tab 08/13/17 [ Rx Confirmed 02/12/18] Gabapentin CAP(*) [Neurontin 400 mg CAP(*)] 400 mg PO TID 11/02/17 [History Confirmed 02/12/18] Insulin Glargine,Hum.rec.anlog [Basaglar Kwikpen U-100] 23 unit SC DAILY 30 Days #30 insuln.pen 11/04/17 [Rx Confirmed 02/12/18] Inpatient Medications: Acetaminophen (Tylenol Tab*) 650 mg PO Q4H PRN PRN Reason: FEVER/PAIN Al Hydrox/Mg Hydrox/Simethicone (Maalox Plus*) 30 ml PO Q4H PRN PRN Reason: DYSPEPSIA Dextrose (D50w Syringe 50 Ml*) 12.5 gm IV PUSH .FOR FS < 60 - SS PRN PRN Reason: FS < 60 Docusate Sodium (Colace Cap*) 200 mg PO DAILY PRN PRN Reason: CONSTIPATION Last Admin: 03/14/18 17:14 Dose: 200 mg Gabapentin (Neurontin Cap(*)) 300 mg PO TID [facility] Last Admin: 03/17/18 14:24 Dose: 300 mg Haloperidol (Haldol Tab*) 5 mg PO Q6H PRN PRN Reason: AGITATION Last Admin: 03/14/18 13:08 Dose: 5 mg Insulin Glargine (Lantus(*)) 10 units SUBCUT Q24H [facility] Insulin Human Lispro (Humalog*) 0 units SUBCUT ACHS [facility]; Protocol Last Admin: 03/17/18 14:25 Dose: 5 units Melatonin (Melatonin) 3 mg PO BEDTIME [facility] Last Admin: 03/16/18 20:29 Dose: 3 mg Metoclopramide HCl (Reglan Tab*) 10 mg PO 0700,1600 [facility] Last Admin: 03/17/18 08:23 Dose: 10 mg Mirtazapine (Remeron Tab*) 15 mg PO BEDTIME [facility] Last Admin: 03/16/18 20:29 Dose: 15 mg Ondansetron HCl (Zofran Odt Tab*) 4 mg PO Q8H PRN PRN Reason: NAUSEA/VOMITING Last Admin: 03/16/18 18:07 Dose: 4 mg Oxycodone HCl (Roxycodone Tab*) 5 mg PO Q6H PRN PRN Reason: PAIN Allergies/Intolerances: gluten Social History: Marijuana use. Lives alone. Social support includes girlfriend, 2 "family" friends Family History: Review of Systems: As above. 12 system review is otherwise negative. No recent illness. OBJECTIVE: Temp Pulse Resp BP Pulse Ox 99.0 F 86 18 149/95 100 03/17/18 09:36 03/17/18 09:36 03/17/18 14:24 03/17/18 09:36 03/17/18 09:36 General: alert, pleasant, oriented, no distress ENT: neck supple, no thyromegaly, no bruit is heard Chest: CTAB, no wheezing or crackles CV: RRR, no murmur Abdomen: soft, non-tender Extremities: no edema, distal pulses intact Skin: warm, dry, no rash Neuro: grossly intact motor/sensory in extremities Psych: restricted affect, pleasant Labs: 03/16/18 11:40 305 03/17/18 07:30 219 03/17/18 11:30 426 03/17/18 12:45 384 03/17/18 14:25 325 WBC 9.5 10^3/ul (3.5-10.8) 03/10/18 06:07 RBC 3.87 10^6/ul (4.00-5.40) L 03/10/18 06:07 Hgb 10.9 g/dl (14.0-18.0) L 03/10/18 06:07 Hct 32 % (42-52) L 03/10/18 06:07 MCV 83 fL (80-94) 03/10/18 06:07 MCH 28 pg (27-31) 03/10/18 06:07 MCHC 34 g/dl (31-36) 03/10/18 06:07 RDW 16 % (10.5-15) H 03/10/18 06:07 Plt Count 450 10^3/ul (150-450) 03/10/18 06:07 MPV 7.8 fL (7.4-10.4) 03/10/18 06:07 Neut % (Auto) 79.6 % 03/10/18 06:07 Lymph % (Auto) 14.0 % 03/10/18 06:07 [place] % (Auto) 4.0 % 03/10/18 06:07 Eos % (Auto) 1.9 % 03/10/18 06:07 Baso % (Auto) 0.5 % 03/10/18 06:07 Absolute Neuts (auto) 7.5 10^3/ul (1.5-7.7) 03/10/18 06:07 Absolute Lymphs (auto) 1.3 10^3/ul (1.0-4.8) 03/10/18 06:07 Absolute Monos (auto) 0.4 10^3/ul (0-0.8) 03/10/18 06:07 Absolute Eos (auto) 0.2 10^3/ul (0-0.6) 03/10/18 06:07 Absolute Basos (auto) 0 10^3/ul (0-0.2) 03/10/18 06:07 Absolute Nucleated RBC 0 10^3/ul 03/10/18 06:07 Nucleated RBC % 0 03/10/18 06:07 Sodium 130 mmol/L (135-145) L 03/10/18 06:07 Potassium 4.5 mmol/L (3.5-5.0) 03/10/18 06:07 Chloride 97 mmol/L (101-111) L 03/10/18 06:07 Carbon Dioxide 23 mmol/L (22-32) 03/10/18 06:07 Anion Gap 10 mmol/L (2-11) 03/10/18 06:07 BUN 41 mg/dL (6-24) H 03/10/18 06:07 Creatinine 2.67 mg/dL (0.67-1.17) H 03/10/18 06:07 Est GFR ( Amer) 32.8 (>60) 03/10/18 06:07 Est GFR (Non-Af Amer) 27.1 (>60) 03/10/18 06:07 BUN/Creatinine Ratio 15.4 (8-20) 03/10/18 06:07 Glucose 406 mg/dL (70-100) H 03/10/18 06:07 POC Glucose (mg/dL) 325 mg/dL (70-100) H 03/17/18 14:27 Hemoglobin A1c 9.6 % (4.0-5.6) H 03/10/18 06:07 Lactic Acid 0.7 mmol/L (0.5-2.0) 03/09/18 23:50 Calcium 9.0 mg/dL (8.6-10.3) 03/10/18 06:07 Phosphorus 2.8 mg/dL (2.5-5.0) 03/10/18 06:07 Magnesium 2.2 mg/dL (1.9-2.7) 03/10/18 06:07 Total Bilirubin 0.30 mg/dL (0.2-1.0) 03/09/18 17:16 AST 19 U/L (13-39) 03/09/18 17:16 ALT 11 U/L (7-52) 03/09/18 17:16 Alkaline Phosphatase 78 U/L (34-104) 03/09/18 17:16 Troponin I 0.00 ng/mL (<0.04) 03/09/18 17:16 Total Protein 6.8 g/dL (6.4-8.9) 03/09/18 17:16 Albumin 3.8 g/dL (3.2-5.2) 03/09/18 17:16 Globulin 3.0 g/dL (2-4) 03/09/18 17:16 Albumin/Globulin Ratio 1.3 (1-3) 03/09/18 17:16 Amylase 110 U/L (29-103) H 03/09/18 17:16 Lipase 146 U/L (11.0-82.0) H 03/09/18 17:16 TSH 0.33 mcIU/mL (0.34-5.60) L 03/09/18 17:16 Free T4 0.78 ng/dL (0.61-1.12) 03/09/18 17:16 Urine Color Yellow 03/09/18 17:16 Urine Appearance Clear 03/09/18 17:16 Urine pH 7.0 (5-9) 03/09/18 17:16 Ur Specific [place] 1.018 (1.010-1.030) 03/09/18 17:16 Urine Protein 3+(>=500 mg/dl) (Negative) A 03/09/18 17:16 Urine Ketones Negative (Negative) 03/09/18 17:16 Urine Blood Negative (Negative) 03/09/18 17:16 Urine Nitrate Negative (Negative) 03/09/18 17:16 Urine Bilirubin Negative (Negative) 03/09/18 17:16 Urine Urobilinogen Negative (Negative) 03/09/18 17:16 Ur Leukocyte Esterase Negative (Negative) 03/09/18 17:16 Urine WBC (Auto) Absent (Absent) 03/09/18 17:16 Urine RBC (Auto) Absent (Absent) 03/09/18 17:16 Urine Bacteria Absent (Absent) 03/09/18 17:16 Urine Glucose 3+(>=500 mg/dl) (Negative) A 03/09/18 17:16 Urine Ascorbic Acid * (Negative) A 03/09/18 17:16 Salicylates < 2.50 mg/dL (<30) 03/09/18 17:16 Urine Opiates Screen None detected (None Detect) 03/09/18 17:16 Acetaminophen < 15 mcg/mL 03/09/18 17:16 Ur Barbiturates Screen None detected (None Detect) 03/09/18 17:16 Ur Phencyclidine Scrn None detected (None Detect) 03/09/18 17:16 Ur Amphetamines Screen None detected (None Detect) 03/09/18 17:16 U Benzodiazepines Scrn None detected (None Detect) 03/09/18 17:16 Urine Cocaine Screen None detected (None Detect) 03/09/18 17:16 U Cannabinoids Screen Presumptive positive (None Detect) A 03/09/18 17:16 Serum Alcohol < 10 mg/dL (<10) 03/09/18 17:16
[2018-03-17] MEDS: oxyCODONE TAB* 5 MG TAB PO PRN (17:58)
[2018-03-17] MEDS: Ondansetron ODT TAB* 4 MG PO PRN (19:10)
[2018-03-17] MEDS: Melatonin 3 MG TAB PO SCH (21:00)
[2018-03-17] MEDS: Mirtazapine TAB* 15 MG PO SCH (21:00)
[2018-03-18] MEDS: oxyCODONE TAB* 5 MG TAB PO PRN ×2 (00:22→08:21)
[2018-03-18] MEDS: Ondansetron ODT TAB* 4 MG PO PRN (07:39)
[2018-03-18] MEDS: Metoclopramide TAB* 10 MG PO SCH ×2 (07:39→17:31)
[2018-03-18] MEDS: Gabapentin CAP(*) 300 MG PO SCH ×3 (07:39→20:49)
[2018-03-18] MEDS: Insulin LISPRO* 1 UNITS UNIT SUBCUT SCH ×5 (08:25→17:30)
[2018-03-18] MEDS ORDERED: Insulin GLARGINE(*) 1 UNITS UNIT SUBCUT SCH (11:00)
[2018-03-18] MEDS: Insulin GLARGINE(*) 1 UNITS UNIT SUBCUT SCH (11:19)
--- NOTE | 2018-03-18 14:14 | PN ---
Subjective Date of Service: 03/18/18 Interval History: Mr. Simmons is feeling ok today. He is frustrated as he feels as though he has made a lot of progress during his stay in [facility] and he doesn't feel like his progress has been noticed. He reports having a flashback (triggered by a nightmare) this morning and was sitting in the hallway crying for 2 hours. He is aware that his BP becomes elevated during these episodes. He has been diagnosed with HTN in the past and has a supply of amlodipine at home which he does not take. He is very resistant to taking any antihypertensives because he has to walk 2 miles home from the bus stop every day. Family History: Unchanged from Admission Social History: Unchanged from Admission Past Medical History: Unchanged from Admission Objective Active Medications: Acetaminophen (Tylenol Tab*) 650 mg PO Q4H PRN FEVER/PAIN Al Hydrox/Mg Hydrox/Simethicone (Maalox Plus*) 30 ml PO Q4H PRN DYSPEPSIA Dextrose (D50w Syringe 50 Ml*) 12.5 gm IV PUSH .FOR FS < 60 - SS PRN FS < 60 Docusate Sodium (Colace Cap*) 200 mg PO DAILY PRN CONSTIPATION Gabapentin (Neurontin Cap(*)) 300 mg PO TID [facility] Haloperidol (Haldol Tab*) 5 mg PO Q6H PRN AGITATION Insulin Glargine (Lantus(*)) 12 units SUBCUT Q24H [facility] Insulin Human Lispro (Humalog*) 4 units SUBCUT AC [facility] Insulin Human Lispro (Humalog*) 0 units SUBCUT AC [facility]; Protocol Melatonin (Melatonin) 3 mg PO BEDTIME [facility] Metoclopramide HCl (Reglan Tab*) 10 mg PO 0700,1600 [facility] Mirtazapine (Remeron Tab*) 15 mg PO BEDTIME [facility] Ondansetron HCl (Zofran Odt Tab*) 4 mg PO Q8H PRN NAUSEA/VOMITING Oxycodone HCl (Roxycodone Tab*) 5 mg PO Q6H PRN PAIN Vital Signs - 8 hr 03/18/18 03/18/18 03/18/18 07:39 07:59 08:21 Temperature 99.8 F Pulse Rate 99 Respiratory 16 15 16 Rate Blood Pressure 180/109 (mmHg) O2 Sat by Pulse 100 Oximetry Oxygen Devices in Use Now: None Appearance: Middle-aged male in NAD Eyes: No Scleral Icterus Ears/Nose/Mouth/Throat: Mucous Membranes Moist Neck: NL Appearance and Movements; NL JVP, Trachea Midline Respiratory: Symmetrical Chest Expansion and Respiratory Effort Extremities: No Edema Skin: No Rash or Ulcers Neurological: Alert and Oriented x 3, NL Gait, NL Muscle Strength and Tone Lines/Tubes/Other Access: Clean, Dry and Intact Peripheral IV Nutrition: Taking PO's Result Diagrams: 03/10/18 06:07 03/10/18 06:07 Assess/Plan/Problems-Billing Mr Simmons is a 38 yo M who has a h/o type I DM, chronic abdominal pain, gastroparesis, stage IV CKD, celiac disease and diabetic neuropathy who presented to the ER with a reported suicide attempt by overdosing on insulin and seroquel. - Patient Problems (1) Hypertension Code(s): I10 - ESSENTIAL (PRIMARY) HYPERTENSION Comment: - BP labile; elevated during panic attacks - He is resistant to taking any antihypertensives - Check BP twice daily (2) Type 1 diabetes mellitus with nephropathy Code(s): E10.21 - TYPE 1 DIABETES MELLITUS WITH DIABETIC NEPHROPATHY Comment: - BG 130-330s - Appreciate Endocrine consult; have changed medications to reflect his recommendations - Will need to f/u with Dr. Foley in 2-3 weeks - Continue lantus, lispro SS (3) Psychiatric disorder Code(s): F99 - MENTAL DISORDER, NOT OTHERWISE SPECIFIED Comment: - Management per Psych (4) Full code status Code(s): Z78.9 - OTHER SPECIFIED HEALTH STATUS Comment: Status and Disposition: Dispo per Psych. Thank you for this consultation. We will continue to follow distantly. Attending: Torri Juan
[2018-03-18] MEDS: Melatonin 3 MG TAB PO SCH (20:51)
[2018-03-18] MEDS: Mirtazapine TAB* 15 MG PO SCH (20:51)
[2018-03-18] MEDS ORDERED: Insulin LISPRO* 1 UNITS UNIT SUBCUT ONE (22:00)
[2018-03-19] MEDS: oxyCODONE TAB* 5 MG TAB PO PRN (07:04)
[2018-03-19] MEDS: Metoclopramide TAB* 10 MG PO SCH (07:05)
[2018-03-19] MEDS: Ondansetron ODT TAB* 4 MG PO PRN (07:05)
[2018-03-19 08:12] VITALS: BP 147/87
[2018-03-19] MEDS: Insulin LISPRO* 1 UNITS UNIT SUBCUT SCH ×4 (08:21→12:13)
[2018-03-19] MEDS: Gabapentin CAP(*) 300 MG PO SCH (08:21)
[2018-03-19] MEDS: Insulin GLARGINE(*) 1 UNITS UNIT SUBCUT SCH (11:34)
--- NOTE | 2018-03-20 00:06 | DS ---
DISCHARGE SUMMARY: DATE OF ADMISSION: 03/09/18 DATE OF DISCHARGE: 03/19/18 PROVIDER: Kristine Guzman NP in Psychiatry. SUPERVISING PHYSICIAN: Dr. Gonzalez Lopez.* (DICTATED BY KRISTINE GUZMAN NP ) DIAGNOSES: [place] I: Major depressive disorder. [place] II: Deferred. CONDITION AT THE TIME OF DISCHARGE: Improved, psychiatrically cleared, stable. Did not participate in many groups and was mildly social with peers.. He has done reasonably well here psychiatrically. He tolerated his medications well. He is referred to [facility], [facility], and Dr. De Paz. MENTAL STATUS EXAMINATION: At the time of discharge, Paco is eager to leave. He is calm, cooperative, and makes good eye contact. He is alert and oriented x3. His grooming is good. His speech pace is normal. His thought processes are logical. He is not psychotic or delusional. He denies AH, VH, SI, and HI. His insight is fair. His judgment is fair. He is willing to follow up. DISCHARGE INSTRUCTIONS: A. Medications: 1. Colace 200 mg daily, dispense 60. 2. Gabapentin 300 mg 3 times a day, dispense 90. 3. Insulin Lantus 12 units q.24 hours and this is a medication that he should have at home. 4. Insulin Humalog 23 units daily. 5. Insulin lispro 4 units before meals. 6. Melatonin 3 mg at bedtime, dispense 30. 7. Reglan 10 mg take at 7 in the morning and 1600 hours, dispense 60. 8. Mirtazapine 15 mg, dispense 30. 9. Zofran 4 mg, he should have this at home. 10. Oxycodone 5 mg tablets q.6 hours. He should have that at home as well. B. Diet: diabetic C. Activities: As tolerated. Paco is a smoker, but he has declined a referral to the [place] [employer] [employer]. If he decides to access this service in the future, he can call [phone]. There are no studies pending at the time of discharge. D. Followup Care: He is referred to [facility] and has an appointment on 03/20/18 at 1 p.m. He is referred to [facility] on 03/21/18 at 3:15. He is referred to Dr. De Paz on 03/24/18 at 9: 00 a.m. E. Substance abuse followup: He is referred to the [facility] [place]. He has an intake appointment on 03/21/18 at 3:15 with [place]. HOSPITAL COURSE: Part A: Identifying Information: Mr. Simmons is a 38-year-old man, who reports he is jobless, in a committed relationship, has a history of 4 prior suicide attempts and a long history of unsuccessful treatment for mental illness described by him as bipolar disorder and PTSD. The patient concurs with report in the medical record that he took 30 units of insulin and 1000 mg of Seroquel as a suicide attempt. He does not concur that these were likely sublethal amounts of these medications stating that he was certain that with the sedation from the Seroquel and the affects of the insulin on his blood sugar that he would with high likelihood go into a hypoglycemic coma and . He reports currently that he would still attempt suicide if he were discharged from the hospital. He states that he would leap from a height or again attempt to kill himself by overdose of insulin. The patient reports that the only person in his life who cares about him is his girlfriend. He reports he has a distant relationship with his family of origin. He does report, however, that he calls his mother about once a week. The patient is unable to elaborate on symptoms of his reported PTSD when asked to what he has flashbacks. He reports "trauma" and will not further elaborate. He does report having low mood and recurrent suicidal ideation due to feeling that he is unable to be efficacious in any aspect of his life and lacks significant support from family and friends aside from his girlfriend. He also cites chronic pain as a motivator of suicidal ideation. He does report on most nights getting adequate sleep if he gets to bed early in the evening. He reports waking up 90% of the time with abdominal pain. He does report that he enjoys listening to music. He reports that his mood most day "swings and swings ," going from high to low and back to high throughout the day. He reports that his energy is "pretty decent." His appetite is hit-or-miss, but his weight is "steady." He does report a history of hypomanic spells by his account. He says that when this occurs he will hitchhike across the country. He does, however, report that this has not occurred for about 10 years at this point. His mood during these episodes, he recalls, as having been irritable. He states that without Seroquel he will not sleep and has thoughts of hurting himself. He is unsure if the thoughts of hurting himself are due to some direct effect of lack of Seroquel or due to the effects of insomnia. When asked when life was last good for him, he states that he has not had a good life since the age of 13. Part B: Psychiatric treatment was rendered. Paco was admitted to the [facility] and placed on q.15 minute checks for safety. Paco was seen walking around the unit being generally seclusive to himself. He tolerated med changes well. Medications that were started included Colace, gabapentin, melatonin, mirtazapine, and ondansetron. His hemoglobin A1c is 9.6. His lipids are not listed. Paco had overdosed on 30 units of insulin and 1000 mg of quetiapine. He stayed overnight in the ICU and had a brief transfer to the medical floor. His multiple medical issues included diabetes type 1, diabetic nephropathy and neuropathy, gastroparesis, and celiac disease. He reports a history of PTSD, a history of cannabis use. He denies a history of opiate and alcohol use that are reported elsewhere. Two days after admission, he began demanding Ativan, complaining of anxiety. He began being loud, agitated, swearing and throwing furniture at mock and windows, requiring IM stat. He stated he wanted Ativan or he wanted to be discharged home so that he could end his own life. On 03/12/18, he reported that he was feeling flat and down and that he could not find a way to kill himself on the unit and that he would kill himself if he left the unit. There was discussion about his abdominal pain and at that point he agreed to start Remeron, Zofran, and Reglan. He did on the 03/11/18 have a consult with Lucian Walker MD, who addressed his diabetes, his diabetic gastroparesis, which he stated was likely the source of his ongoing abdominal pain. He also addressed CKD, stage 4 and recommended establishing with an night worker as an outpatient. On 03/13/18, Paco requested Effexor, stating that he needed an antidepressant. He also requested to not speak with Dr. Abraham, who was the physician of record for this admission. He then requested his girlfriend to visit who had been here less than 6 months ago. In general, he took an adversarial stance toward any provider who would assess his needs objectively and therefore would object also to plans of treatment that are not in perfect alignment with Mr. Simmons's demands, which may in fact not be in the best interest of him stating his commitment to killing himself is given the opportunity. On 03/14/18, it turned out that Effexor caused him to vomit, instead he agreed to a trial of Wellbutrin, which he states has been helpful. His mood continued to be low, but he does not know now that if he would leave the hospital he would kill himself. He states he will not try to kill himself on the unit any longer. He states he does not want to go to the [facility] and further he would like to relocate to [place] and pursue care in [facility]. On 03/17/18, Paco reported that he is doing much better with a good mood for the past couple of days and a remission of suicidal ideation. He has been talking with supports outside of the hospital and found that they care about him and that helps him feel better. He also reports that having a concrete plan to get out of town is helpful to him. He continues to awaken with abdominal pain. On 03/17/18, he received a consult from Dr. Ty Foley with the reason for consult being hypoglycemia. Dr. Foley was able to recommend adjustments to his insulin regimen. On 03/19/18, [place] was discharged. He was seen on his day of discharge pacing the clarke with his hoodie up and a blanket around him. He states he is feeling better and he is very ready to leave. He is eager to never return to this hospital and remarked that the hospitals in [place] are better than the ones here. He is improved. He is no longer suicidal. He has stopped becoming extremely agitated with staff and was agreeable to discharge today. KRISTINE GUZMAN, CLINICAL DENTAL TECHNICIAN [id number]/[facility] #: [id number] [facility]
== END 2018-03-19 13:00 | disposition home or self-care (01) | DRG 751 ==
LOC: ED 16:55 → ICU 18:57 → MED 03-10 10:32 → BSU 03-10 16:37
PROVIDERS: ADMIT Internal Medicine; ATTEND Internal Medicine
DX: F33.2 Major depressive disorder, recurrent severe without psychotic features (principal); N17.9 Acute kidney failure, unspecified; R45.851 Suicidal ideations; N18.4 Chronic kidney disease, stage 4 (severe); K90.0 Celiac disease; E10.40 Type 1 diabetes mellitus with diabetic neuropathy, unspecified; E10.43 Type 1 diabetes mellitus with diabetic autonomic (poly)neuropathy; E10.21 Type 1 diabetes mellitus with diabetic nephropathy; E10.22 Type 1 diabetes mellitus with diabetic chronic kidney disease; E10.649 Type 1 diabetes mellitus with hypoglycemia without coma; K31.84 Gastroparesis; I12.9 Hypertensive chronic kidney disease with stage 1 through stage 4 chronic kidney disease, or unspecified chronic kidney disease; F17.210 Nicotine dependence, cigarettes, uncomplicated; F12.90 Cannabis use, unspecified, uncomplicated; F43.10 Post-traumatic stress disorder, unspecified; Z79.84 Long term (current) use of oral hypoglycemic drugs; Z79.4 Long term (current) use of insulin; Z79.899 Other long term (current) drug therapy; Z91.018 Allergy to other foods
CPT/HCPCS: 36415; 71045; 74176; 80048; 80053; 80307; 80320; 80329; 81003; 81015; 82150; 83036; 83605; 83690; 83735; 84100; 84439; 84443; 84484; 85025; 87641; 93005; 99222; 99231; 99232; 99285; A9270-GY; G0480; J0515; J1170; J1610; J1630; J1885; J2060; J2270; J2405; J3360; J3486

== ENCOUNTER 2018-04-17 12:33 | Emergency (ER) | payer OTHER ==
--- OUTSIDE RECORDS SUMMARY | 2018-04-17 12:40 | XMS REPORT | Continuity of Care Document ---
:1980 External Reference #:[id number] Author Name Yi Cruz Care Team Providers Name Role Phone Joshua Osorio MD Care Team Information Medical Unit Secretary Unavailable Toby Edge MD Primary Care Physician Unavailable Payers Type Date Identification Numbers Payment Provider Subscriber Policy Number: [id number] Lopez Medicaid Barron Simmons PayID: [id number] [address] [address] [place] [address] Policy Number: [id number] Today Opts [employer] aBrron Simmons PayID: [id number] [address] [address] [place] [address] PayID: [id number] [facility] Barron Simmons [facility] [address] [place] [address] Advance Directives Description No Information Available Problems Date Description Provider Status Onset: 03/07/2015 Type 1 diabetes mellitus Eliceo Short MD Active Note: Feb 2015 A1c 9.4 proteinuria Onset: 03/07/2015 Gastroparesis syndrome Eliceo Short MD Active Onset: 03/07/2015 Bipolar disorder Eliceo Short MD Active Onset: 03/07/2015 Anxiety state Eliceo Short MD Active Onset: 03/07/2015 Chronic renal failure Eliceo Short MD Active Note: Feb 2015 cr 2.1 eGFR 39 Onset: 03/15/2015 Adult health examination Leanne Golden PA-C Active Onset: 03/15/2015 Iron deficiency anemia Leanne Golden PA-C Active Note: 2014 ferritin 14 Onset: 03/15/2015 Hunter's esophagus Leanne Golden PA-C Active Note: 1st upper to D3 Feb 2015 Family History Description No Information Available Social History Type Date Description Comments Sex Unknown Marital Status 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 ETOH Use < 10 G/D Tobacco Use Start: Unknown Heavy tobacco smoker (more than 10 cigarettes/day) Recreational Drug Use Marijuana Allergies, Adverse Reactions, Alerts Description No Known Drug Allergies Medications Medication Date Status Form Strength Qnty SIG Indications Ordering Provider Amlodipine Active Tablets 5mg Once Unknown Besylate 015 Daily Anexsia Active Tablets 5-325mg Every 6 Unknown 015 Hours prn Pain Ondansetron HCL Active Tablets 4mg Every 8 Unknown 015 Hours as Needed prn Nausea Pantoprazole Active Tablets DR 40mg Once Unknown Sodium 015 Daily Sucralfate Active Tablets 1gm Before Unknown 015 Meals Bupropion HCL 0 Active Tablets ER 150mg 2 Times A Unknown ER (XL) 000 24HR Day Gabapentin 0 Active Capsules 300mg 3 Times Unknown 000 Daily Lantus 0 Active Solution 100Unit/ML Every Unknown 000 Morning Humalog Kwikpen 0 Active Solution 100Unit/ML 4 Times A Unknown 000 Pen-Inject Day Immunizations CPT Code Status Date Vaccine Lot # [id number] Given Unknown Influenza Virus Split Children 6-35 Mo Of Age Intramuscular Use Vital Signs Date Vital Result Comment 03/07/2015 8:00pm BP Systolic 183 mmHg BP Diastolic 116 mmHg Heart Rate 133 /min Results Test Date Facility Test Result H/L Range Note Laboratory test N2N/CCD Import Bedside Glucose 92 70-110 finding 5 Laboratory test [facility] Esophageal Biopsy See Note 1 finding 5 [address] [place] [address] [phone] Laboratory test N2N/CCD Import Alanine 27 12-78 finding 5 Aminotransferase (Alt/SGPT) Albumin 3.4 3.4-5.0 Albumin/Globulin Ratio 0.9 Alkaline Phosphatase 88 45-117 Anion Gap 12 8-16 Aspartate Amino Transf (Ast/Sgot) 26 15-37 BUN/Creatinine Ratio 6.4 Blood Urea Nitrogen 11 7-18 Calcium Level 8.6 8.5-10.1 Carbon Dioxide Level 21 21-32 Chloride Level 101 98-107 Creatinine 1.7 High 0.6-1.3 Estimated GFR () 60 >60 Estimated GFR (Non- 49 >60 Globulin 3.8 1.9-4.3 Glucose Screen 261 High 74-106 Hematocrit 33.1 Low 38.0-48.0 Hemoglobin 11.3 Low 12.8-17.0 Magnesium Level 1.9 1.8-2.4 Mean Corpuscular Hemoglobin 29.0 27.0-33.0 Mean Corpuscular Hemoglobin Concent 34.1 31.7-36.0 Mean Corpuscular Volume 84.9 80.0-96.0 Mean Platelet Volume 10.0 6.6-10.6 Platelet Count 528 High 150-400 Potassium Level 3.4 Low 3.5-5.1 RDW Coefficient of Variation 13.7 11.6-15.8 Red Blood Count 3.90 Low 4.20-5.80 Sodium Level 134 Low 136-145 Total Bilirubin 0.5 0.2-1.0 Total Protein 7.2 6.4-8.2 White Blood Count 10.8 High 3.4-10.5 Vitamin B12 And 03/08/2015 [facility] Vitamin B12 649 pg/mL 193-986 Folate [address] [place], [place] [id number] [phone] Folic Acid 31.5 ng/mL High 3.1-17.5 Laboratory test finding 03/08/2015 [facility] Ferritin 14 ng/mL Low 26-388 [address] [place] [address] [phone] Reticulocyte Count,Automated 1.0 % 0.8-2.1 Laboratory test 03/08/2015 N2N/CCD Import Basophils # (Auto) 0.03 Low 0.1 -0.2 finding Basophils (%) (Auto) 0.3 0.1-1.0 Eosinophils # (Auto) 0.28 0.0-0.5 Eosinophils (%) (Auto) 2.5 0.0-5.0 Lipase 139 73-393 Lymphocytes # (Auto) 2.22 1.8-7.0 Lymphocytes (%) (Auto) 20.0 17.0-56.0 Monocytes # (Auto) 0.83 High 0.0-0.8 Monocytes (%) (Auto) 7.5 0.0-10.0 Neutrophils # (Auto) 7.73 High 1.8-7.0 Neutrophils (%) (Auto) 69.7 33.0-73.0 Red Cell Distribution Width 41.9 36-51 Reticulocyte Count (auto) 1.0 0.8-2.1 Laboratory test finding 03/07/2015 N2N/CCD Import Estimated Average 223 Glucose (eAG) Hemoglobin A1c 9.4 High 4.2-6.3 Manual Slide Review (Hematology) See Note 2 Urine Amphetamines Screen Negative Urine Barbiturates Screen Negative Urine Benzodiazepines Screen Negative Urine Bilirubin Negative Negative Urine Blood Small High Negative Urine Cannabinoids Screen Positive High Urine Clarity Clear Clear Urine Cocaine Screen Negative Urine Color Yellow Yellow Urine Drug Screen Information * Urine Ketones Negative Negative Urine Leukocyte Esterase Negative Negative Urine Methadone Screen Negative Urine Nitrite Negative Negative Urine Opiates Screen Negative Urine Protein 100 High Negative Urine Specific [place] 1.020 1.010-1.030 Urine Urobilinogen 0.2 0.2-1.0 Urine pH 8.0 High 6.5-7.5 Laboratory test 02/25/2015 N2N/CCD Import Bedside Glucose 220 High 70- 110 finding Laboratory test 02/25/2015 N2N/CCD Import Urine Bacteria Very Few None Seen finding Urine Bilirubin Negative Negative Urine Blood Large High Negative Urine Clarity Clear Clear Urine Color Yellow Yellow Urine Epithelial Cells Very Few None Seen Urine Ketones 15 High Negative Urine Leukocyte Esterase Negative Negative Urine Nitrite Negative Negative Urine Specific [place] 1.020 1.010-1.030 Urine Urobilinogen 0.2 0.2-1.0 Urine pH 8.5 High 6.5-7.5 Laboratory test finding 02/25/2015 N2N/CCD Import Venous Blood Base Excess 1.4 Venous Blood Hco3 22.1 Venous Blood Oxygen Saturation 92.4 *H 60-80 Venous Blood pCO2 at Patient Temp 25 Low 45-50 Venous Blood pH 7.57 High 7.25-7.55 Venous Blood pO2 at Patient Temp 55 40-60 Laboratory test 02/25/2015 N2N/CCD Import Alanine Aminotransferase 32 12 -78 finding (Alt/SGPT) Albumin 4.0 3.4-5.0 Albumin/Globulin Ratio 0.9 Alkaline Phosphatase 115 45-117 Anion Gap 15 8-16 Aspartate Amino Transf (Ast/Sgot) 32 15-37 BUN/Creatinine Ratio 13.0 Basophils # (Auto) 0.02 Low 0.1-0.2 Basophils (%) (Auto) 0.1 0.1-1.0 Blood Urea Nitrogen 30 High 7-18 Calcium Level 10.3 High 8.5-10.1 Carbon Dioxide Level 23 21-32 Chloride Level 93 Low 98-107 Creatinine 2.3 High 0.6-1.3 Eosinophils # (Auto) 0.00 0.0-0.5 Eosinophils (%) (Auto) 0.0 0.0-5.0 Estimated GFR () 42 >60 Estimated GFR (Non- 35 >60 Globulin 4.4 High 1.9-4.3 Glucose Screen 399 High 74-106 Hematocrit 36.7 Low 38.0-48.0 Hemoglobin 12.7 Low 12.8-17.0 Lymphocytes # (Auto) 0.95 Low 1.8-7.0 Lymphocytes (%) (Auto) 5.9 Low 17.0-56.0 Mean Corpuscular Hemoglobin 29.3 27.0-33.0 Mean Corpuscular Hemoglobin Concent 34.6 31.7-36.0 Mean Corpuscular Volume 84.8 80.0-96.0 Mean Platelet Volume 10.0 6.6-10.6 Monocytes # (Auto) 0.26 0.0-0.8 Monocytes (%) (Auto) 1.6 0.0-10.0 Neutrophils # (Auto) 14.83 High 1.8-7.0 Neutrophils (%) (Auto) 92.4 High 33.0-73.0 Platelet Count 534 High 150-400 Potassium Level 3.9 3.5-5.1 RDW Coefficient of Variation 13.5 11.6-15.8 Red Blood Count 4.33 4.20-5.80 Red Cell Distribution Width 41.1 36-51 Serum Ketones Small High Negative Sodium Level 131 Low 136-145 Total Bilirubin 0.4 0.2-1.0 Total Protein 8.4 High 6.4-8.2 White Blood Count 16.1 High 3.4-10.5 1 OPERATION/PROCEDURE Gastroscopy DIAGNOSIS: "ESOPHAGUS, BIOPSY": - SQUAMOUS AND COLUMNAR MUCOSA WITH CHRONIC INFLAMMATION, A SMALL FOCUS OF PANCREATIC HETEROTOPIA, AND FOCAL INTESTINAL METAPLASIA. - NEGATIVE FOR DYSPLASIA. EP/clf 1016 GROSS Received in formalin in a properly labeled container with the patient's name and accession number designated, "ESOPHAGEAL BIOPSY". The specimen consists of multiple pieces of keller, soft rubbery tissue with an aggregate measurement of 0.4 x 0.4 x 0.2 cm. Submitted entirely, one cassette. CC/clf PRE OPERATIVE DIAGNOSIS Esopahgeal pain with nausea and vomiting REVIEW CODE CODE: I Signed Electronically signed Karan FRITZ MD 1202 2 Instrument flagged sample for slide review. No immature cells noted. RBC morphology essentially normal. Procedures Date Code Description Status 03/31/2018 95785 EKG Interpretation And Report Only Completed 03/09/2015 13668 Endoscopy Small Intestine W/Biopsy Completed Encounters Type Date Location Provider Dx Diagnosis Office Visit 03/07/2015 [facility] Dave Silvestre, R10.9 Unspecified 9:40a [facility] Bessie abdominal pain Plan of Treatment No Information Available
[2018-04-17 12:51] VITALS: BP 118/86
--- NOTE | 2018-04-17 13:17 | UC ---
Neck Pain HPI - HPI Summary HPI Summary: The patient is a 38-year-old male with the onset of neck pain and trouble swallowing yesterday. He denies any history of fall. He has no sore throat. He denies any fever or chills. On repeat questioning he reports he did have a few times where he slipped but did not fall he sort of caught himself. He denies any headache. He denies any history of MVAs. - History of Current Complaint Chief Complaint: UCGeneralIllness Stated Complaint: PAIN WHEN SWALLOWING INTO NECK Time Seen by Provider: 04/17/18 12:53 Hx Obtained From: Patient Onset/Duration Of Injury/Symptoms: Hours Mechanism Of Injury: No Known Trauma Timing: Constant Onset/Duration: Lasting Hours Severity: Mild Pain Intensity: 3 Pain Scale Used: 0-10 Numeric Location: Diffuse - both trapezius and SCM muscles Character: Spasmotic, Burning Aggravating Factors: Position, Movement Alleviating Factors: Nothing Associated Signs & Symptoms: Positive: Negative - Allergies/Home Medications Allergies/Adverse Reactions: Allergies Allergy/AdvReac Type Severity Reaction Status Date / Time gluten Allergy Abdominal Verified 04/17/18 12:51 Pain Home Medications: Home Medications Quetiapine Fumarate [Seroquel 200 MG] 200 mg PO BEDTIME 04/17/18 [History Confirmed 04/17/18] PMH/Surg Hx/FS Hx/Imm Hx Endocrine History: Diabetes Cardiovascular History: Hypertension GI/ History: Gastroesophageal Reflux, Renal Disease - diabetic nephropaty, Other Other GI/ History: gastroparesis Neurological History: Other - neuropathy Other Neurological History: diabetic neuropathy Psychological History: Depression, Other Other Psychological History: hx suicide attempt Other History Of: Negative For: Anticoagulant Therapy - Surgical History Surgical History: None - Family History Known Family History: Negative: Cardiac Disease, Hypertension, Diabetes Family History: NON CONTRIBUTORY - Social History Alcohol Use: None Substance Use Type: Marijuana Substance Use Comment - Amount & Last Used: weekly small amount ( a few grams a week) Smoking Status (MU): Light Every Day Tobacco Smoker Type: Cigarettes Amount Used/How Often: 1/2 - 1 PPD a day and has smoked in the last 30 days Length of Time of Smoking/Using Tobacco: 20 years Have You Smoked in the Last Year: Yes When Did the Patient Quit Smoking/Using Tobacco: SMOKES MARIJUANA WELL Household Exposure Type: Cigarettes Cessation Counseling: Patient Advised to Stop - Immunization History Most Recent Influenza Vaccination: Once many years ago Most Recent Tetanus Shot: 2009 Most Recent Pneumonia Vaccination: not received Review Of Systems Constitutional: Positive: Negative Skin: Positive: Negative Eyes: Positive: Negative ENT: Positive: Negative Respiratory: Positive: Negative Cardiovascular: Positive: Negative Gastrointestinal: Positive: Negative Genitourinary: Positive: Negative Musculoskeletal: Positive: Myalgia Psychological: Positive: Negative All Other Systems Reviewed And Are Negative: Yes Physical Exam Triage Information Reviewed: Yes Appearance: Well-Appearing, No Pain Distress, Well-Nourished Vital Signs: Initial Vital Signs Temp 99.6 F 04/17/18 12:44 Pulse 99 04/17/18 12:44 Resp 16 04/17/18 12:44 BP 118/86 04/17/18 12:44 Pulse Ox 99 04/17/18 12:44 Vital Signs Reviewed: Yes Eyes: Positive: Conjunctiva Clear ENT: Negative: Nasal congestion, Nasal drainage, Trismus, Muffled voice, Hoarse voice Neck: Positive: Supple, No Lymphadenopathy, Other: - limited ROM/tender both trapzius ans SCM muscles Respiratory: Positive: Lungs clear, Normal breath sounds, No respiratory distress, No accessory muscle use Cardiovascular: Positive: RRR, No Murmur Abdomen Description: Positive: Nontender, No Organomegaly. Negative: CVA Tenderness (R), CVA Tenderness (L) Bowel Sounds: Positive: Present Musculoskeletal: Positive: ROM Intact, No Edema Neurological: Positive: Alert Psychological Exam: Normal Skin Exam: Normal Diagnostics - Radiology No standard instances Radiology Interpretation Completed By: Radiologist Summary of Radiographic Findings: STRAIGHTENING OF THE CERVICAL LORDOSIS. MILD DEGENERATIVE DISC DISEASE Neck Pain Course/Dx - Differential Dx/Diagnosis Provider Diagnosis: Cervical strain Discharge - Sign-Out/Discharge Documenting (check all that apply): Patient Departure All imaging exams completed and their final reports reviewed: Yes - Discharge Plan Condition: Stable Disposition: HOME Prescriptions: Cyclobenzaprine (NF) [Cyclobenzaprine 5 MG (NF)] 5 mg PO TID PRN #21 tab PRN Reason: Spasms - Neck Patient Education Materials: Cervical Strain (ED), Soft Cervical Collar (ED) Referrals: Genaro De Paz MD [Primary Care Provider] - 5 Days (if not better) - Billing Disposition and Condition Condition: STABLE Disposition: Home
== END 2018-04-17 14:05 | disposition home or self-care (01) ==
LOC: UCEAST 12:33
DX: S16.1XXA Strain of muscle, fascia and tendon at neck level, initial encounter (principal); F17.210 Nicotine dependence, cigarettes, uncomplicated; E11.9 Type 2 diabetes mellitus without complications; I10 Essential (primary) hypertension; F32.9 Major depressive disorder, single episode, unspecified; Z91.018 Allergy to other foods; Z79.899 Other long term (current) drug therapy; X58.XXXA Exposure to other specified factors, initial encounter; Y92.9 Unspecified place or not applicable
CPT/HCPCS: 72050; 99212; G0463

== ENCOUNTER → 2018-07-18 13:36 | Emergency (ER) | payer OTHER ==
[2018-07-18 13:44] VITALS: BP 139/98
--- NOTE | 2018-07-18 13:53 | ED ---
Psychiatric Complaint - HPI Summary HPI Summary: A 38 y/o male presents to [facility] with a chief complaint of being brought in by police on a 9.41. He states that his called police after he told her that he was going to try to kill himself. He reports previous suicide attempts by trying to OD on sleeping pills or insulin. In the ED room he denies current SI but states that he doesn't feel happy. He claims that he has been taking the right amount of his medication. He claims that his sugar [employer] was around 300. Pt reports abdominal pain but denies any fever, chills, erythema of eyes, sore throat, CP, SOB, cough, N/V, dysuria, hematuria, myalgia, edema, rash, or dizziness. He reports smoking cigarettes and marijuana but denies EtOH use. - History Of Current Complaint Chief Complaint: EDMentalHealth Time Seen by Provider: 07/18/18 13:49 Hx Obtained From: Patient Onset/Duration: Gradual Onset, Lasting Hours, Still Present Timing: Constant Severity Initially: Mild Severity Currently: Mild Character: Depressed Aggravating Factor(s): Nothing Alleviating Factor(s): Nothing Associated Signs And Symptoms: Positive: Negative Related History: Positive For: Prior Psychiatric Issues Has Suicidal: Reports: Thoughts, With A Plan, Demonstrates Gesture, Has Prior Attempt(s) Has Homicidal: Denies: Thoughts - Allergies/Home Medications Allergies/Adverse Reactions: Allergies Allergy/AdvReac Type Severity Reaction Status Date / Time gluten Allergy Abdominal Verified 07/18/18 13:44 Pain Home Medications: Home Medications Insulin Glargine,Hum.rec.anlog [Nidhi Lamar] 25 unit SUBCUT QAM 07/18/18 [ History Confirmed 07/18/18] Insulin Lispro [Admelog] 0 unit SUBCUT .TID QID 07/18/18 [History Confirmed 06/03] PMH/Surg Hx/FS Hx/Imm Hx Endocrine/Hematology History: Denies: Hx Anticoagulant Therapy, Hx Blood Disorders, Hx Blood Transfusions, Hx Bone Marrow Disease, Hx Diabetes - Type 1, Hx Systemic Lupus Erythematosus, Hx Sickle Cell Disease, Hx Thyroid Disease, Hx Anemia, Hx Unexplained Bleeding, Other Endocrine/Hematological Disorders Cardiovascular History: Denies: Hx Cardiac Arrest, Hx Hypotension, Hx Hypertension, Hx Pacemaker/ICD , Hx Peripheral Vascular Disease, Other Cardiovascular Problems/Disorders Respiratory History: Reports: Hx Pneumonia Denies: Hx Asthma, Hx Chronic Bronchitis, Hx Chronic Obstructive Pulmonary Disease (COPD), Hx Cystic Fibrosis, Hx Lung Cancer, Hx Pleural Effusion, Hx Pulmonary Edema, Hx Pulmonary Embolism, Hx Seasonal Allergies, Hx Sleep Apnea, Other Respiratory Problems/Disorders GI History: Reports: Hx Gastroesophageal Reflux Disease, Hx Gastrointestinal Bleed, Hx Ulcer, Other GI Disorders - Gastroparesis Denies: Hx Cirrhosis, Hx Crohn's Disease, Hx Diverticulosis, Hx Gall Bladder Disease, Hx Hiatal Hernia, Hx Irritable Bowel, Hx Jaundice, Hx Obstructive Bowel , Hx Ileostomy, Hx Pyloric Stenosis History: Reports: Other Problems/Disorders - chronic kidney disease Denies: Hx Acute Renal Failure, Hx Benign Prostatic Hyperplasia, Hx Chronic Renal Failure, Hx Dialysis, Hx Kidney Infection, Hx Kidney Stones, Hx Renal Disease Musculoskeletal History: Denies: Hx Arthritis, Hx Osteoporosis Sensory History: Reports: Hx Vision Problem Denies: Hx Cataracts, Hx Contacts or Glasses, Hx Eye Injury, Hx Eye Prosthesis, Hx Glaucoma, Hx Macular Degeneration, Hx Deafness, Hx Hearing Aid, Hx Hearing Problem, Other Sensory Impairments Opthamlomology History: Reports: Hx Vision Problem Denies: Hx Cataracts, Hx Contacts or Glasses, Hx Eye Injury, Hx Eye Prosthesis, Hx Glaucoma, Hx Macular Degeneration, Other Sensory Impairments Neurological History: Reports: Hx Headaches, Other Neuro Impairments/Disorders - nephro and neuroapthy r/t DM Denies: Hx Dementia, Hx Developmental Delay, Hx Migraine, Hx Nerve Disease, Hx Seizures, Hx Spinal Cord Injury, Hx Transient Ischemic Attacks (TIA) Psychiatric History: Reports: Hx Anxiety, Hx Depression, Hx Post Traumatic Stress Disorder, Hx Inpatient Treatment, Hx Community Mental Health Tx, Hx Bipolar Disorder, Hx Substance Abuse Denies: Hx Attention Deficit Hyperactivity Disorder, Hx Eating Disorder, Hx Panic Disorder, Hx Schizophrenia, Hx Suicide Attempt, Hx of Violent Episodes Against Others, Other Psychiatric Issues/Disorders - Cancer History Hx Chemotherapy: No Hx Radiation Therapy: No - Surgical History Hx Anesthesia Reactions: No - Immunization History Date of Tetanus Vaccine: utd Date of Influenza Vaccine: no Infectious Disease History: No Infectious Disease History: Denies: Hx Hepatitis, Hx Human Immunodeficiency Virus (HIV), Hx of Known/ Suspected MRSA, Hx Shingles, Hx Tuberculosis, History Other Infectious Disease, Traveled Outside the [place] in Last 30 Days - Family History Known Family History: Negative: Cardiac Disease, Hypertension, Diabetes - Social History Alcohol Use: None Hx Substance Use: Yes Substance Use Type: Reports: Marijuana Substance Use Comment - Amount & Last Used: weekly small amount ( a few grams a week) Hx Tobacco Use: Yes Smoking Status (MU): Light Every Day Tobacco Smoker Type: Cigarettes Amount Used/How Often: 1/2 - 1 PPD a day and has smoked in the last 30 days Length of Time of Smoking/Using Tobacco: 20 years Have You Smoked in the Last Year: Yes Review of Systems Negative: Fever, Chills Negative: Erythema Negative: Sore Throat Negative: Chest Pain Negative: Shortness Of Breath, Cough Negative: Abdominal Pain, Vomiting, Nausea Negative: dysuria, hematuria Negative: Myalgia, Edema Negative: Rash Neurological: Negative - dizziness All Other Systems Reviewed And Are Negative: Yes Physical Exam - Summary Physical Exam Summary: Constitutional: Well-developed, Well-nourished, Alert. (-) Distressed Skin: Warm, Dry HENT: Normocephalic; Atraumatic Eyes: Conjunctiva normal Neck: Musculoskeletal ROM normal neck. (-) JVD, (-) Stridor, (-) Tracheal deviation Cardio: Rhythm regular, rate normal, Heart sounds normal; Intact distal pulses; The pedal pulses are 2+ and symmetric. Radial pulses are 2+ and symmetric. (-) Murmur Pulmonary/Chest wall: Effort normal. (-) Respiratory distress, (-) Wheezes, (-) Rales Abd: Soft, (-) tenderness, (-) Distension, (-) Guarding, (-) Rebound Musculoskeletal: (-) Edema Lymph: (-) Cervical adenopathy Neuro: Alert, Oriented x3 Psych: Mood and affect Normal Triage Information Reviewed: Yes Vital Signs On Initial Exam: Initial Vitals Temp Pulse Resp BP Pulse Ox 98.1 F 117 18 139/98 97 07/18/18 13:41 07/18/18 13:41 07/18/18 13:41 07/18/18 13:41 07/18/18 13:41 Vital Signs Reviewed: Yes Diagnostics - Vital Signs Vital Signs Temp Pulse Resp BP Pulse Ox 07/18/18 13:41 98.1 F 117 18 139/98 97 - Laboratory Result Diagrams: 07/18/18 14:36 07/18/18 14:36 Lab Statement: Any lab studies that have been ordered have been reviewed, and results considered in the medical decision making process. Re-Evaluation - Re-Evaluation First Eval Re-Evaluation Time: 15:27 Change: Unchanged Comment: inquired about renal failure and patient states that he has had no formal diagnosis. His PCP, Dr. De Paz wanted a 24 hour urine but the patient hasnt gotten around to it Second Eval Re-Evaluation Time: 16:43 Change: Unchanged Comment: Discussed case with mara Maldonado, who reports acetaminophen is going to be less than 15. Pt cleared for MHE. Reviewed notes from Jan 01, [address] De Paz. Hemoglobin A1C was 9.1 percent. Seeing screening unit registered nurse for uncontrolled DM, chronic kidney disease was not adressed during the visit. Course/Dx - Course Course Of Treatment: A 38 y/o male presents to [facility] with a chief complaint of being brought in by police on a 9.41. He states that his called police after he told her that he was going to try to kill himself. He reports previous suicide attempts by trying to OD on sleeping pills or insulin. In the ED room he denies current SI but states that he doesn't feel happy. He claims that he has been taking the right amount of his medication. Bloodwork, chemistries, toxicology and urines obtained. Discussed case with mara Maldonado, who reports acetaminophen is going to be less than 15. Pt cleared for MHE. Reviewed notes from Jan 01, [address] De Paz. Hemoglobin A1C was 9.1 percent. Seeing screening unit registered nurse for uncontrolled DM, chronic kidney disease was not adressed during the visit. Informed Dr. uNnez, hospitalist, about the patient' s chronic kidney disease. Mental health relief worker reports that Dr. Becerril has cleared the patient for discharge. The patient will be discharged, was instructed to follow up with Dr. Villarreal in one week and is agreeable with this plan. - Differential Dx/Clinical Impression Provider Diagnosis: Depressive disorder, Chronic kidney disease - Physician Notifications Discussed Care Of Patient With: Dorie Nunez Time Discussed With Above Provider: 15:36 Instructed by Provider To: Other - made her aware of the patient's chronic kidney disease. Discharge - Sign-Out/Discharge Documenting (check all that apply): Patient Departure - DC Patient Received Moderate/Deep Sedation with Procedure: No - Discharge Plan Condition: Stable Disposition: HOME Referrals: Genaro De Paz MD [Primary Care Provider] - () Markos Villarreal MD [Medical Doctor] - 1 Week Additional Instructions: RETURN TO THE EMERGENCY DEPARTMENT FOR CHANGING OR WORSENING SYMPTOMS - Attestation Statements Document Initiated by Scribe: Yes Documenting Scribe: Osbaldo Wheeler Provider For Whom Scribe is Documenting (Include Credential): Abelino Sepulveda MD Scribe Attestation: I, Osbaldo Wheeler, scribed for Abelino Sepulveda MD on 07/18/18 at 1847. Status of Scribe Document: Ready Consult Consult: At 18:45 the mental health relief worker reports that Dr. Becerril has cleared the patient for discharge. Dx: depressive disorder.
[2018-07-18 15:02] LABS: ABS Eosinophils 0.1 10^3/ul (0-0.6); ABS Lymphocytes 1.1 10^3/ul (1.0-4.8); ABS Monocytes 0.5 10^3/ul (0-0.8); ABS Neutrophils 6.4 10^3/ul (1.5-7.7); Eosinophil % 1.3 %; Hematocrit 33 % (42-52); Hemoglobin 10.9 g/dL (14.0-18.0); Lymphocyte % 13.7 %; Mean Corpuscular HGB Conc 33 g/dL (31-36); Mean Corpuscular Hemoglobin 28 pg (27-31); Mean Corpuscular Volume 85 fL (80-94); Mean Platelet Volume 7.7 fL (7.4-10.4); Nucleated Red Blood Cells % 0.1; Platelet Count 496 10^3/uL (150-450); Red Blood Count 3.89 10^6 /uL (4.18-5.48); Red Cell Distribution Width 15 % (10.5-15); White Blood Count 8.2 10^3/uL (3.5-10.8)
[2018-07-18 15:03] LABS: ALT 12 U/L (7-52); AST 16 U/L (13-39); Albumin 4.1 g/dL (3.2-5.2); Albumin/Globulin Ratio 1.2 (1-3); Alkaline Phosphatase 86 U/L (34-104); Anion Gap 7 mmol/L (2-11); BUN/Creatinine Ratio 10.3 (8-20); Blood Urea Nitrogen 41 mg/dL (6-24); CO2 Carbon Dioxide 27 mmol/L (22-32); Calcium 9.4 mg/dL (8.6-10.3); Chloride 98 mmol/L (101-111); EGFR African American 20.7 (>60); EGFR Non-African American 17.1 (>60); Globulin 3.3 g/dL (2-4); Glucose 286 mg/dL (70-100); Potassium 4.3 mmol/L (3.5-5.0); Sodium 132 mmol/L (135-145); Total Protein 7.4 g/dL (6.4-8.9)
[2018-07-18 15:20] LABS: Alcohol < 10 mg/dL (<10); Salicylate < 2.50 mg/dL (<30)
[2018-07-18 15:34] LABS: TSH (Thyroid Stimulating Horm) 0.31 mcIU/mL (0.34-5.60)
[2018-07-18 16:24] LABS: Urine Appearance Clear; Urine Bacteria Absent (Absent); Urine Bilirubin Negative (Negative); Urine Blood Negative (Negative); Urine Color Yellow; Urine Glucose 3+(>=500 mg/dL) (Negative); Urine Ketones Negative (Negative); Urine Nitrite Negative (Negative); Urine Protein 3+(>=500 mg/dL) (Negative); Urine Red Blood Cell Trace(0-2/hpf) (Absent); Urine Specific Gravity 1.016 (1.010-1.030); Urine Squamous Epithelial Cell Present (Absent); Urine Urobilinogen Negative (Negative); Urine White Blood Cell Trace(0-5/hpf) (Absent)
[2018-07-18 16:26] LABS: Urine Benzodiazepine Screen None Detected (None Detect); Urine Opiates Screen None Detected (None Detect)
[2018-07-18 16:43] LABS: Acetaminophen < 15 mcg/mL
== END | disposition home or self-care (01) ==
LOC: ED 13:36
DX: F32.9 Major depressive disorder, single episode, unspecified (principal); E11.22 Type 2 diabetes mellitus with diabetic chronic kidney disease; E11.65 Type 2 diabetes mellitus with hyperglycemia; N18.9 Chronic kidney disease, unspecified; F41.9 Anxiety disorder, unspecified; F17.210 Nicotine dependence, cigarettes, uncomplicated; Z79.4 Long term (current) use of insulin
CPT/HCPCS: 36415; 80053; 80307; 80320; 80329; 81003; 81015; 84443; 85025; 87086; 99284; G0480

== ENCOUNTER 2018-07-25 11:33 | Emergency (ER) | payer OTHER ==
[2018-07-25 11:42] VITALS: BP 141/87
--- NOTE | 2018-07-25 12:32 | UC ---
Lower Extremity/Ankle HPI - HPI Summary HPI Summary: 2 DAYS AGO PATIENT FELL OFF A UTE BITE AND SOMEHOW INJURED HIS LEFT FOOT. HAS PAIN WITH WEIGHTBEARING. - History of Current Complaint Chief Complaint: UCLowerExtremity Stated Complaint: FOOT INJURY Time Seen by Provider: 07/25/18 11:45 Hx Obtained From: Patient Onset/Duration: Sudden Onset, Lasting Days, Still Present Severity Initially: Moderate Severity Currently: Moderate Pain Intensity: 6 Pain Scale Used: 0-10 Numeric Aggravating Factor(s): Standing, Ambulation Alleviating Factor(s): Rest, Elevation Able to Bear Weight: Yes - WITH PAIN - Allergies/Home Medications Allergies/Adverse Reactions: Allergies Allergy/AdvReac Type Severity Reaction Status Date / Time gluten Allergy Abdominal Verified 07/25/18 11:42 Pain Home Medications: Home Medications Seroquel 200 MG 200 mg PO 07/25/18 [History] PMH/Surg Hx/FS Hx/Imm Hx Endocrine History: Diabetes - TYPE I GI/ History: Ulcer Other GI/ History: CELIAC Other History Of: Negative For: Anticoagulant Therapy - Surgical History Surgical History: None - Family History Known Family History: Negative: Cardiac Disease, Hypertension, Diabetes - Social History Alcohol Use: None Substance Use Type: Marijuana Substance Use Comment - Amount & Last Used: weekly small amount ( a few grams a week) Smoking Status (MU): Light Every Day Tobacco Smoker Type: Cigarettes Amount Used/How Often: 1/2 - 1 PPD a day and has smoked in the last 30 days Length of Time of Smoking/Using Tobacco: 20 years Have You Smoked in the Last Year: Yes When Did the Patient Quit Smoking/Using Tobacco: SMOKES MARIJUANA WELL Household Exposure Type: Cigarettes - Immunization History Most Recent Influenza Vaccination: Once many years ago Most Recent Tetanus Shot: 2009 Most Recent Pneumonia Vaccination: not received Review of Systems All Other Systems Reviewed And Are Negative: Yes Constitutional: Positive: Negative Skin: Positive: Negative Respiratory: Positive: Negative Cardiovascular: Positive: Negative Gastrointestinal: Positive: Negative Musculoskeletal: Positive: Arthralgia, Decreased ROM Physical Exam Triage Information Reviewed: Yes Appearance: Well-Appearing, No Pain Distress, Well-Nourished Vital Signs: Initial Vital Signs Temp 98 F 07/25/18 11:39 Pulse 87 07/25/18 11:39 Resp 17 07/25/18 11:39 BP 141/87 07/25/18 11:39 Pulse Ox 100 05/10/19 11:39 Vital Signs Reviewed: Yes Eyes: Positive: Conjunctiva Clear ENT: Positive: Hearing grossly normal Neck: Positive: Supple Respiratory: Positive: No respiratory distress, No accessory muscle use Cardiovascular: Positive: Pulses Normal Abdomen Description: Positive: Soft Musculoskeletal: Positive: No Edema, ROM Limited @ - TOES LEFT FOOT, Other: - TTO LEFT 5TH METATARSAL AND MTP JOINT Neurological: Positive: Alert Psychological: Positive: Age Appropriate Behavior Skin: Negative: Rashes Diagnostics - Radiology LEFT FOOT XRAY Radiology Interpretation Completed By: Radiologist Summary of Radiographic Findings: Fracture of the fifth metatarsal. Lower Extremity Course/Dx - Differential Dx/Diagnosis Provider Diagnosis: Displaced fracture of fifth metatarsal bone, left foot, initial encounter for closed fracture Discharge - Sign-Out/Discharge Documenting (check all that apply): Patient Departure All imaging exams completed and their final reports reviewed: Yes - Discharge Plan Condition: Stable Disposition: HOME Prescriptions: HYDROcodone/ACETAMIN 5-325 MG* [[place] 5-325 TAB*] 1 tab PO Q6H PRN #20 tab MDD 4 PRN Reason: Pain Patient Education Materials: Foot Fracture in Adults (ED) Referrals: Taniya Woodruff MD [Medical Doctor] - 3 Days Genaro De Paz MD [Primary Care Provider] - If Needed Additional Instructions: X-RAYS SHOW A FRACTURE OF THE FIFTH METATARSAL. WEAR THE CAM BOOT AT ALL TIMES AND BE NONWEIGHTBEARING UNTIL SEEN BY ORTHOPEDICS. OTC MEDICATIONS NEEDED FOR PAIN. HYDROCODONE FOR BREAKTHROUGH. CALL [facility]TH[facility] TODAY FOR AN APPT TO BE SEEN IN THE NEXT FEW DAYS. - Billing Disposition and Condition Condition: STABLE Disposition: Home
== END 2018-07-25 12:45 | disposition home or self-care (01) ==
LOC: UCEAST 11:33
DX: S92.352A Displaced fracture of fifth metatarsal bone, left foot, initial encounter for closed fracture (principal); E10.9 Type 1 diabetes mellitus without complications; F17.210 Nicotine dependence, cigarettes, uncomplicated; Z91.02 Food additives allergy status; W19.XXXA Unspecified fall, initial encounter; Z79.899 Other long term (current) drug therapy
CPT/HCPCS: 99213; G0463

== ENCOUNTER 2018-08-16 12:51 | Inpatient (IN) | payer OTHER ==
[2018-08-16] MEDS ORDERED: LORazepam INJ* 2 MG/ML 1 ML VIAL ONE (13:05)
[2018-08-16] MEDS ORDERED: Haloperidol INJ IV/IM* 5 MG/ML AMP ONE (13:05)
[2018-08-16] MEDS ORDERED: diPHENhydraMINE IV* 50 MG/ML 1 ml VIAL (BENADRYL) ONE (13:05)
--- NOTE | 2018-08-16 13:55 | ED ---
Psychiatric Complaint - HPI Summary HPI Summary: This patient is a 38 year old M brought in by [employer] to [facility] due to a suicide attempt by jumping off a bridge prior to arrival per [employer]. Police state he attempted to smash his head into the concrete when they were attempting to restrain him. Police reports he stated that he is unwilling to receive any help and will continue to attempt suicide. Currently patient is unwilling to communicate. HPI is limited. Patient is level 5 caveat. - History Of Current Complaint Chief Complaint: EDMentalHealth Time Seen by Provider: 08/16/18 13:01 Hx Obtained From: Patient Character: Depressed Associated Signs And Symptoms: Positive: Hostile Has Suicidal: Reports: Thoughts, Demonstrates Gesture - Allergies/Home Medications Allergies/Adverse Reactions: Allergies Allergy/AdvReac Type Severity Reaction Status Date / Time gluten Allergy Abdominal Verified 08/16/18 17:05 Pain PMH/Surg Hx/FS Hx/Imm Hx Endocrine/Hematology History: Reports: Hx Diabetes - Type 1 Denies: Hx Anticoagulant Therapy, Hx Blood Disorders, Hx Blood Transfusions, Hx Bone Marrow Disease, Hx Systemic Lupus Erythematosus, Hx Sickle Cell Disease , Hx Thyroid Disease, Hx Anemia, Hx Unexplained Bleeding, Other Endocrine/ Hematological Disorders Cardiovascular History: Denies: Hx Cardiac Arrest, Hx Hypotension, Hx Hypertension, Hx Pacemaker/ICD , Hx Peripheral Vascular Disease, Other Cardiovascular Problems/Disorders Respiratory History: Reports: Hx Pneumonia Denies: Hx Asthma, Hx Chronic Bronchitis, Hx Chronic Obstructive Pulmonary Disease (COPD), Hx Cystic Fibrosis, Hx Lung Cancer, Hx Pleural Effusion, Hx Pulmonary Edema, Hx Pulmonary Embolism, Hx Seasonal Allergies, Hx Sleep Apnea, Other Respiratory Problems/Disorders GI History: Reports: Hx Gastroesophageal Reflux Disease, Hx Gastrointestinal Bleed, Hx Ulcer - in the past, Other GI Disorders - Gastroparesis Denies: Hx Cirrhosis, Hx Crohn's Disease, Hx Diverticulosis, Hx Gall Bladder Disease, Hx Hiatal Hernia, Hx Irritable Bowel, Hx Jaundice, Hx Obstructive Bowel , Hx Ileostomy, Hx Pyloric Stenosis History: Reports: Other Problems/Disorders - chronic kidney disease Denies: Hx Acute Renal Failure, Hx Benign Prostatic Hyperplasia, Hx Chronic Renal Failure, Hx Dialysis, Hx Kidney Infection, Hx Kidney Stones, Hx Renal Disease Musculoskeletal History: Denies: Hx Arthritis, Hx Osteoporosis Sensory History: Reports: Hx Vision Problem Denies: Hx Cataracts, Hx Contacts or Glasses, Hx Eye Injury, Hx Eye Prosthesis, Hx Glaucoma, Hx Macular Degeneration, Hx Deafness, Hx Hearing Aid, Hx Hearing Problem, Other Sensory Impairments Opthamlomology History: Reports: Hx Vision Problem Denies: Hx Cataracts, Hx Contacts or Glasses, Hx Eye Injury, Hx Eye Prosthesis, Hx Glaucoma, Hx Macular Degeneration, Other Sensory Impairments Neurological History: Reports: Hx Headaches, Other Neuro Impairments/Disorders - nephro and neuroapthy r/t DM Denies: Hx Dementia, Hx Developmental Delay, Hx Migraine, Hx Nerve Disease, Hx Seizures, Hx Spinal Cord Injury, Hx Transient Ischemic Attacks (TIA) Psychiatric History: Reports: Hx Anxiety, Hx Depression, Hx Post Traumatic Stress Disorder, Hx Inpatient Treatment, Hx Community Mental Health Tx, Hx Bipolar Disorder, Hx Substance Abuse Denies: Hx Attention Deficit Hyperactivity Disorder, Hx Eating Disorder, Hx Panic Disorder, Hx Schizophrenia, Hx Suicide Attempt, Hx of Violent Episodes Against Others, Other Psychiatric Issues/Disorders - Cancer History Cancer Type, Location and Year: celiac disease Hx Chemotherapy: No Hx Radiation Therapy: No - Surgical History Hx Anesthesia Reactions: No - Immunization History Date of Tetanus Vaccine: utd Date of Influenza Vaccine: no Infectious Disease History: Unable to Obtain/Confirm Infectious Disease History: Denies: Hx Hepatitis, Hx Human Immunodeficiency Virus (HIV), Hx of Known/ Suspected MRSA, Hx Shingles, Hx Tuberculosis, History Other Infectious Disease, Traveled Outside the [place] in Last 30 Days - Family History Known Family History: Negative: Cardiac Disease, Hypertension, Diabetes - Social History Alcohol Use: None Hx Substance Use: Yes Substance Use Type: Reports: Marijuana Substance Use Comment - Amount & Last Used: weekly small amount ( a few grams a week) Hx Tobacco Use: Yes Smoking Status (MU): Light Every Day Tobacco Smoker Type: Cigarettes Amount Used/How Often: 1/2 - 1 PPD a day and has smoked in the last 30 days Length of Time of Smoking/Using Tobacco: 20 years Have You Smoked in the Last Year: Yes Review of Systems Positive: Other - SI All Other Systems Reviewed And Are Negative: No - Comments Additional Review of Systems Comments: ROS is limited. Patient is level 5 caveat. Physical Exam - Summary Physical Exam Summary: GENERAL: Patient is a well-developed and nourished M who is lying comfortable in the stretcher. Patient is not in any acute respiratory distress. Patient is unwilling to communicate HEAD AND FACE: Normocephalic EYES: PERRLA, EOMI x 2. EARS: Hearing grossly intact. NECK: Supple, trachea is midline, no adenopathy, no JVD, no carotid bruit. CHEST: Symmetric, no tenderness at palpation LUNGS: Clear to auscultation bilaterally. No wheezing or crackles. CVS: Regular rate and rhythm, S1 and S2 present, no murmurs or gallops appreciated. ABDOMEN: Soft. Bowel sounds are normal. No abnormal abdominal pulsations. EXTREMITIES: Full ROM in all major joints, no edema, no cyanosis or clubbing. NEURO: No acute neurological deficits. SKIN: Dry and warm Physical exam is limited. Patient is level 5 caveat. Triage Information Reviewed: Yes Vital Signs On Initial Exam: Initial Vitals Temp Pulse Resp BP Pulse Ox 97.9 F 78 16 174/102 0 08/16/18 13:16 08/16/18 13:16 08/16/18 13:16 08/16/18 13:16 08/16/18 13:16 Vital Signs Reviewed: Yes Diagnostics - Vital Signs Vital Signs Temp Pulse Resp BP Pulse Ox 08/16/18 13:16 97.9 F 78 16 174/102 0 - Laboratory Result Diagrams: 08/16/18 14:07 08/16/18 14:07 Lab Statement: Any lab studies that have been ordered have been reviewed, and results considered in the medical decision making process. Course/Dx - Course Course Of Treatment: 38 year old M brought in 941 due to a suicide attempt by jumping off a bridge prior to arrival per [employer]. Police state he attempted to smash his head into the concrete when they were attempting to restrain him. Police reports he stated that he is unwilling to receive any help and will continue to attempt suicide. Currently patient is unwilling to communicate. HPI and Exam is limited. Patient is level 5 caveat. Patient is given 2mg of Ativan. Security was required to hold patient down in order to obtain necessary bloodwork. Patient is medically cleared for mental health evaluation. Bloodwork , UA, and toxicology report obtained. Patient has a history of kidney disease and diabetes. Current labs are at patient's baseline. At [address] Nunez, hospitalist, who agrees to have patient evaluated once admitted to [facility]. Patient will be admitted to Dr. Becerril with a diagnosis of unspecified mood disorder. - Differential Dx/Clinical Impression Provider Diagnosis: Mood disorder Discharge - Sign-Out/Discharge Documenting (check all that apply): Patient Departure - admit - Discharge Plan Condition: Stable Disposition: PSYCHIATRIC FACILITY[facility] - Billing Disposition and Condition Condition: STABLE Disposition: Psychiatric Facility [facility] - Attestation Statements Document Initiated by Flash: Yes Documenting Scribe: Lexus Acuna Provider For Whom Flash is Documenting (Include Credential): Perry Piper MD Scribe Attestation: ILexus, scribed for Perry Piper MD on 08/16/18 at 2104. Scribe Documentation Reviewed: Yes Provider Attestation: The documentation as recorded by the Lexus deutsch accurately reflects the service I personally performed and the decisions made by , Perry Piper MD Status of Scribe Document: Viewed
[2018-08-16 14:13] LABS: ABS Eosinophils 0.2 10^3/ul (0-0.6); ABS Lymphocytes 1.2 10^3/ul (1.0-4.8); ABS Monocytes 0.4 10^3/ul (0-0.8); ABS Neutrophils 5.8 10^3/ul (1.5-7.7); Eosinophil % 2.9 %; Hematocrit 32 % (42-52); Hemoglobin 10.7 g/dL (14.0-18.0); Lymphocyte % 15.9 %; Mean Corpuscular HGB Conc 33 g/dL (31-36); Mean Corpuscular Hemoglobin 28 pg (27-31); Mean Corpuscular Volume 85 fL (80-94); Mean Platelet Volume 7.5 fL (7.4-10.4); Platelet Count 404 10^3/uL (150-450); Red Blood Count 3.81 10^6 /uL (4.18-5.48); Red Cell Distribution Width 15 % (10.5-15); White Blood Count 7.8 10^3/uL (3.5-10.8)
[2018-08-16 14:29] LABS: ALT 11 U/L (7-52); AST 18 U/L (13-39); Albumin 3.9 g/dL (3.2-5.2); Albumin/Globulin Ratio 1.3 (1-3); Alkaline Phosphatase 86 U/L (34-104); Anion Gap 5 mmol/L (2-11); BUN/Creatinine Ratio 9.3 (8-20); Blood Urea Nitrogen 38 mg/dL (6-24); CO2 Carbon Dioxide 27 mmol/L (22-32); Chloride 100 mmol/L (101-111); EGFR African American 20.1 (>60); EGFR Non-African American 16.6 (>60); Globulin 3.1 g/dL (2-4); Glucose 287 mg/dL (70-100); Potassium 4.3 mmol/L (3.5-5.0); Sodium 132 mmol/L (135-145)
[2018-08-16 14:46] LABS: Acetaminophen < 15 mcg/mL; Alcohol < 10 mg/dL (<10); Salicylate < 2.50 mg/dL (<30)
[2018-08-16 15:01] LABS: TSH (Thyroid Stimulating Horm) 0.34 mcIU/mL (0.34-5.60)
[2018-08-16 15:52] LABS: Urine Appearance Clear; Urine Bacteria Absent (Absent); Urine Bilirubin Negative (Negative); Urine Blood Negative (Negative); Urine Color Straw; Urine Glucose 2+(150 mg/dL) (Negative); Urine Ketones Negative (Negative); Urine Nitrite Negative (Negative); Urine Protein 2+(100 mg/dL) (Negative); Urine Red Blood Cell Trace(0-2/hpf) (Absent); Urine Specific Gravity 1.012 (1.010-1.030); Urine Urobilinogen Negative (Negative); Urine White Blood Cell Trace(0-5/hpf) (Absent)
[2018-08-16 16:02] LABS: Urine Benzodiazepine Screen None Detected (None Detect); Urine Opiates Screen None Detected (None Detect)
[2018-08-16] MEDS ORDERED: Insulin GLARGINE(*) 1 UNITS UNIT SUBCUT SCH (22:00)
[2018-08-16] MEDS: Gabapentin CAP(*) 300 MG PO SCH (22:22)
[2018-08-16] MEDS: Melatonin 3 MG TAB PO SCH (22:23)
[2018-08-16] MEDS: Insulin LISPRO* 1 UNITS UNIT SUBCUT SCH (22:23)
[2018-08-16] MEDS: Mirtazapine TAB* 15 MG PO SCH (22:23)
[2018-08-17] MEDS: Ondansetron TAB* 4 MG PO PRN (04:21)
[2018-08-17] MEDS: Insulin LISPRO* 1 UNITS UNIT SUBCUT SCH ×8 (05:25→17:00)
[2018-08-17] MEDS: Gabapentin CAP(*) 300 MG PO SCH ×3 (08:03→21:29)
[2018-08-17] MEDS: Vitamin THERAPEUTIC TAB PO SCH (08:04)
[2018-08-17] MEDS: Al Hydrox/Mg Hydrox/Simet LIQ* 30 ML UDC PO PRN (08:05)
[2018-08-17] MEDS: Docusate CAP* 100 MG PO SCH (08:06)
[2018-08-17] MEDS ORDERED: Insulin LISPRO* 1 UNITS UNIT SUBCUT SCH ×2 (09:00→17:00)
[2018-08-17] MEDS: Acetaminophen TAB* 325 MG PO PRN (09:19)
[2018-08-17] MEDS: Metoclopramide TAB* 10 MG PO SCH ×2 (09:19→15:33)
[2018-08-17] MEDS ORDERED: Insulin GLARGINE(*) 1 UNITS UNIT SUBCUT SCH (17:00)
--- NOTE | 2018-08-17 17:01 | PN ---
Hospitalist Progress Note Date of Service: 08/17/18 Mr. Simmons was evaluated in the mental health unit today to review his current insulin dosing. Patient reports that he takes Sliding scale insulin humalog at home starting with 1 unit for 200-225 and then increases by 1 unit for every 25 point increase in his blood sugar, not to exceed 10 units per dose. Patient also reports that he takes Basaglar 20 unit between 7712-0223 in the evening. He reports that he checks his with meals and between midnight and 2 am as he reports that he has frequent lows. Recommendations: I will stop Lispro 23 units daily and extra 4 units with meals. I adjusted his sliding scale to what he takes at home, increased his Lantus to 20 units at 1830 which is his daily routine dose. I have added finger sticks at midnight daily. Continue with routine finger sticks AC and HS as well. Thank you allowing to assist in the management of his diabetes, please do not hesitate to contact us with further recommendations. We will sign off at this time.
--- NOTE | 2018-08-17 17:23 | HP ---
HISTORY AND PHYSICAL: DATE OF ADMISSION: 08/16/18 IDENTIFYING DATA: The patient is a 38-year-old mentally disabled male , known to this hospital and all other doctors hospital hospitals for repeated hospitalizations in the context of severe psychosocial stressors leading up to either suicide attempt or gestures. CHIEF COMPLAINT: "God hates me, I should not live any longer and I am not going to eat." HISTORY OF PRESENT ILLNESS: Paco was brought to the emergency room by [place] [employer] after his girlfriend, who is also known to us from numerous hospitalizations here, called the police that Paco was going to kill himself by jumping off of a high place. When the police arrived, Paco said exactly the same thing that he was going to kill himself because God hates him. However, during today's evaluation, he was very upset and minimally cooperative with the assessment. He reports that his girlfriend keeps cheating on him and he cannot take this any longer, so he wanted to end it all, but he denies any intention to kill himself today. He just wants to go home. Moreover, he has been complaining of severe abdominal pain. P.r.n. medications were given to him and he was advised to go eat. He is being very selective about his food indicating he is allergic to everything that is available here; however, he ate some yogurt and some other food, but not the total tray. This morning, his blood sugar has been going up and up, is over 500 and he received his maximum coverage for glucose and we are going to seek help from the hospitalist to manage his blood sugar. He has also been difficult obtaining his blood. Overall , he is very irritable, verbally abusive towards the vest busheler and rest of the staff members, uses obscene languages frequently, sometimes threatens verbally. He does not make any eye contact, totally irrational, uncooperative and disrespectful to everybody on the unit. PAST PSYCHIATRIC HISTORY: As mentioned earlier, he has numerous psychotic hospitalizations on this unit as well as all other doctors hospital hospitals including [facility]. MEDICATIONS: His meds that he was discharged on include: 1. Tylenol 650 mg p.o. q.6 hours p.r.n. 2. Docusate sodium 200 mg p.o. daily p.r.n. for constipation. 3. Gabapentin 300 mg 3 times a day for neuropathy. 4. Lantus 15 units subcutaneous q.24 hours. 5. Humalog. 6. Lispro per protocol. 7. Metoclopramide (Reglan) 10 mg p.o. q.12 hours p.r.n. 8. Morphine sulfate injection 4 mg IV q.4 hours p.r.n. 9. Oxycodone 5 mg p.o. 6 hours p.r.n. for pain. ALLERGIES: Not known at this time. FAMILY PSYCHIATRIC HISTORY: Noncontributory and he is not cooperative on giving any information on his family history. PERSONAL AND SOCIAL HISTORY: As much as we know is that Paco is mentally and physically disabled. Currently recipient of all social security benefits, has his housing through [employer]. Lives with his girlfriend whom he considered his who is also mentally ill and they feed into each others miseries, and per all reports, very un-therapeutic relationship. MEDICAL CONDITIONS: Paco has multiple medical issues including type 1 diabetes mellitus, diabetic nephropathy and neuropathy, diabetic gastroparesis, celiac disease, and end-stage renal disease. SUBSTANCE ABUSE HISTORY: Also significant. He endorses using and abusing cannabis, opiates, alcohol, and so on. PHYSICAL EXAM: Physical exam was not done because of the patient's aggressive and uncooperative behaviors. He appears to be in terrible physical distress because of abdominal pain and declines to be touched. However, review of emergency room physical exam done last evening is unremarkable and expected. His vitals showed a blood pressure of 135/82, pulse 95, temperature 98.5, respirations 16, O2 sat 96 on room air. MENTAL STATUS EXAMINATION: Barron is ill-looking, average height male who is appropriately dressed, but poorly groomed with poor personal hygiene. During the evaluation, he faced the other way and covered himself with his blankets. He was fidgety, loud, abusive verbally, cursing out frequently and asking the vest busheler to go away; however, we did try as much as we could get out of him and offered him help. He did not want any help and his mood continues to be bad with irritable affect. His speech was loud and illogical. Thought processes were illogical, but there was no evidence of any delusions or paranoia. Intelligence appears to be average as evidenced by his vocabulary and previous knowledge about Paco. His memory functions are intact in all spheres. He is alert and oriented to time, place, and person. His insight and judgment appears to be impaired. LABORATORY DATA: Labs done in the emergency room shows a WBC count of 10.5, hemoglobin 15.5, hematocrit 47, platelet count 200. Chem profile shows a sodium of 139, potassium 4, chloride 107, carbon dioxide 23. His BUN was 43, creatinine 4.08 GFR 16. A verbal consult was done with emergency room doctor as well as hospitalist available. They indicated that this is a long-term chronic condition that was no change in his renal health, so he should be fine to go to psychiatric unit. SUMMARY: This 38-year-old male known to this facility for his mood dysregulation and possible borderline personality traits is readmitted because of a report by his /girlfriend that he has been suicidal and was wanting to jump off of a high place to kill himself. He has a history of multiple suicide attempts in the past. Given that fact and the history, we decided to admit him for his safety and reevaluate him in a therapeutic and safe environment. DIAGNOSTIC IMPRESSION: Mental Health Diagnoses: Unspecified mood disorder, rule out impulse control disorder, rule out borderline personality disorder. Physical Health Diagnoses: Type 1 diabetes mellitus, diabetic neuropathy and nephropathy, also gastroparesis, celiac disease. TREATMENT RECOMMENDATIONS: Paco will remain hospitalized on behavioral science unit for his safety and stabilization. His code status will remain full. Supportive milieu, individual and group therapy will be initiated and he will be encouraged to attend all of them. There is no plan to change his outpatient psychopharmacological treatments at this time; however, his assigned psychiatrist may choose to make adjustment after he or she can sit down with Barron when he is stable enough to have a rationale conversation. There appears to be a dysfunctional union between Barron Simmons and his girlfriend and these are very destabilizing and un-therapeutic relationship. Treatment team can try to advise a family counseling for the couple when they are discharged or even they can be seen together in the treatment team to find out what will be Paco's needs psychotherapeutically when he is discharged to the community because time and time again, Paco's hospitalization appears to be related to severe stress of his relationship with his girlfriend and there are accusations which can even be dangerous. [id number]/[facility] #: [id number] DESHAUN
[2018-08-17] MEDS: Melatonin 3 MG TAB PO SCH (21:29)
[2018-08-17] MEDS: Mirtazapine TAB* 15 MG PO SCH (21:30)
[2018-08-18] MEDS: Al Hydrox/Mg Hydrox/Simet LIQ* 30 ML UDC PO PRN ×2 (00:02→05:42)
[2018-08-18] MEDS: Acetaminophen TAB* 325 MG PO PRN ×2 (00:03→07:40)
[2018-08-18] MEDS ORDERED: Morphine TAB Extended Release (*) 15 MG TAB.ER PO PRN (00:45)
[2018-08-18] MEDS: Ondansetron TAB* 4 MG PO PRN (01:30)
[2018-08-18 01:35] LABS: Phosphorus 2.8 mg/dL (2.5-5.0)
[2018-08-18] MEDS: Metoclopramide TAB* 10 MG PO SCH (07:40)
[2018-08-18] MEDS: Gabapentin CAP(*) 300 MG PO SCH (07:40)
[2018-08-18] MEDS: Insulin LISPRO* 1 UNITS UNIT SUBCUT SCH ×2 (07:45→12:17)
[2018-08-18] MEDS: Docusate CAP* 100 MG PO SCH (07:47)
[2018-08-18] MEDS: Vitamin THERAPEUTIC TAB PO SCH (07:47)
[2018-08-18 08:48] VITALS: BP 151/95
--- NOTE | 2018-08-18 21:45 | DS ---
CC: Dr. De Paz; [facility] * DISCHARGE SUMMARY: DATE OF ADMISSION: 08/16/18 DATE OF DISCHARGE: 08/18/18 PROVIDER: Kristine Guzman NP in Psychiatry. SUPERVISING PHYSICIAN: Gonzalez Lopez MD.* (DICTATED BY KRISTINE GUZMAN NP) DIAGNOSIS: Unspecified mood disorder, type 1 diabetes, diabetic neuropathy and nephropathy, gastroparesis and celiac disease. CONDITION AT THE TIME OF DISCHARGE: Paco is improved. He is psychiatrically cleared and stable. He participated in groups and was social with peers. He has done were here psychiatrically. He tolerated being on the hospital array of medications well. He is scheduled to attend [facility]. MENTAL STATUS EXAMINATION: At the time of discharge, Paco is calm, cooperative, and makes good eye contact. He is alert and oriented x4. His grooming is adequate. His speech pace is normal. His thought processes are logical. He is not psychotic or delusional. He denies AH, VH, SI, and HI. His insight and judgment are fair to good. He is willing to follow up and he is urged to see a therapist. DISCHARGE INSTRUCTIONS TO THE PATIENT: A. Medications: He is discharged on medications that he was brought in on, but none have been prescribed for him outpatient. 1. Colace 200 p.r.n. for constipation. 2. Gabapentin 300 three times a day for neuropathy. 3. Lantus 15 units subcutaneously q.24 hours. 4. Humalog lispro per protocol. 5. Reglan 10 mg q.12 hours p.r.n. nausea. 6. Morphine sulfate injections 4 mg IV q.4 hours p.r.n. pain. 7. Oxycodone 5 mg p.o. q.6 hours p.r.n. pain. B. Diet is gluten free. C. Activities as tolerated. Paco has declined a referral to the [place] state Smokers' Quitline at this time. If he decides to access this free service in the future, he can contact the Quitline at [phone]. There are no studies pending at the time of discharge. D. Followup care. He has an appointment at [facility] on 08/22/18 at 10:30 with Catie Samayoa and an appointment with his primary care provider, Dr. Genaro De Paz on 08/19/18 at 11:20. E. Disposition. He is going to go back to his apartment in [place]. F. Substance abuse followup is not indicated. HOSPITAL COURSE: PART A: Chief Complaint: "God hates me. I should not live any longer and I am not going to eat." Paco was brought to the emergency room by [place] Police after his girlfriend, who is also known to us from numerous hospitalizations here, called the police that Paco was going to kill himself by jumping off of a high place. When the police arrived, Paco said exactly the same thing that he was going to kill himself because God hates him; however, during today's evaluation, he was very upset and minimally cooperative with the assessment. He reports that his girlfriend keeps cheating on him and he cannot take this any longer. So, he wanted to end it all, but he denied any intention to kill himself today. He just wants to go home. Moreover, he has been complaining of severe abdominal pain, p.r.n. medications were given to him and he was advised to go eat. He is being very selective about his food indicating he is allergic to everything that is available here; however, he eats some yoghurt and some other food, but not the total tray. This morning, his blood sugar has been going up and up and is over 500 and he received his maximum coverage for glucose and we are going to seek help from the hospitalist to manage his blood sugar. He has also been difficult obtaining his blood. Overall, he is very irritable, verbally abusive towards the industrial truck mechanic and the rest of the staff members, uses obscene languages frequently, sometimes threatens verbally. He does not make any eye contact. He is totally irrational, uncooperative and disrespectful to everybody on the unit. PART B: Psychiatric treatment was rendered. Paco was admitted to the adult behavioral unit and placed on 15-minute checks for safety. Paco did not participate on the unit, but was pleasant with the peers he interacted with. There were no psychiatric medication changes made. It should be noted that his blood glucose levels were very high above 300 throughout much of his stay as well as his blood pressures being elevated. He states that the hospital did not have the proper coverage for him on the insulin and that he has been prescribed clonidine for his hypertension by Dr. De Paz, but he has not been willing to take that as it makes him quite dizzy when he walks uphill to his home. His hemoglobin A1c on 03/10/18 was 9.6%. On 11/25/17, his triglycerides were 185, cholesterol was 241, LDL cholesterol was 149, HDL cholesterol 54.6. We did not meet with his family or consult with his girlfriend Domi as he wants to break up with Domi recognizing that their relationship is a toxic one. Note a consult with the hospitalist was entered to determine how best it give him coverage on his insulin. He did not find this to be a satisfactory change, but he did acknowledge that it was time for him to see his primary care provider and agreed to allow us to have his appointment scheduled for him. Paco was uncharacteristically pleasant during the interview that Lizbet Dyer LCSW and I had with him this morning. He was eager to leave and was calm and collected regarding his desire to leave and how he felt like he had been treated by his girlfriend. In all, he is convincingly not suicidal and very much wants to leave the hospital. His care home plans include moving to [place] with or without his girlfriend, Domi and resuming his life there. In the meantime, he can name 3 people who are supportive of him and who he can enjoy his time with. Further, he also named 3 activities that kept him from feeling bored and hopeless. KRISTINE GUZMAN, GALI [id number]/[facility] #: [id number] DESHAUN
== END 2018-08-18 13:15 | disposition home or self-care (01) | DRG 753 ==
LOC: ED 12:51 → BSU 20:53
PROVIDERS: ADMIT Psychiatry & Neurology Psychiatry; ATTEND Psychiatry & Neurology Psychiatry
DX: F39 Unspecified mood [affective] disorder (principal); N18.6 End stage renal disease; R45.851 Suicidal ideations; E10.21 Type 1 diabetes mellitus with diabetic nephropathy; E10.40 Type 1 diabetes mellitus with diabetic neuropathy, unspecified; E10.43 Type 1 diabetes mellitus with diabetic autonomic (poly)neuropathy; E10.22 Type 1 diabetes mellitus with diabetic chronic kidney disease; E10.65 Type 1 diabetes mellitus with hyperglycemia; K31.84 Gastroparesis; F10.10 Alcohol abuse, uncomplicated; Y90.0 Blood alcohol level of less than 20 mg/100 ml; F12.10 Cannabis abuse, uncomplicated; F11.10 Opioid abuse, uncomplicated; K90.0 Celiac disease; Z79.4 Long term (current) use of insulin; Z79.1 Long term (current) use of non-steroidal anti-inflammatories (NSAID); Z79.891 Long term (current) use of opiate analgesic; Z79.899 Other long term (current) drug therapy
CPT/HCPCS: 36415; 80053; 80307; 80320; 80329; 81003; 81015; 82947; 83690; 84100; 84443; 85025; 87086; 99222; 99238; 99285; A9270-GY; G0480; J1200; J1630; J2060

== ENCOUNTER 2019-01-22 15:48 | Emergency (ER) | payer OTHER ==
[2019-01-22] MEDS ORDERED: Morphine 4 MG/ML VIAL (1 ml) 4 MG/ML VIAL IV ONE ×2 (16:25→21:31)
[2019-01-22] MEDS ORDERED: Ondansetron INJ* 2 MG/ML VIAL IV ONE (16:25)
--- NOTE | 2019-01-22 16:31 | ED ---
GI/ HPI - HPI Summary HPI Summary: The patient is a 38 y/o M presenting to [facility] with multiple complaints. P atient reporting feeling generally unwell, shortness of breath. Patient reports left flank pain onset over the last week. He reports that he was recently diagnosed with late stage renal failure at [facility] and had a fistula placed in the left forearm three days ago. He was told that he needs to get dialysis soon, but then he was called today and was advised to get dialysis sooner than planned after being discharged. He was also told that he had possible CHF. He additionally c/o SOB, cough, and decreased oral intake. The pain is rated 10/10 in severity. The pain is increasing, and the pain medications he was given have not been helping. He notes that he had a renal hemorrhage after having a biopsy which was followed by multiple renal ultrasounds and has been stable. PMHx: DM, GI bleed. Heavy every day smoker, no EtOH, marijuana use. Medications reviewed. Allergies noted. - History of Current Complaint Chief Complaint: EDGeneral Time Seen by Provider: 01/22/19 16:13 Stated Complaint: KIDNEY FAILURE PER PT Hx Obtained From: Patient Onset/Duration: Started Days Ago - about a week, Still Present Timing: Lasting Days Severity: Moderate Current Severity: Severe Pain Intensity: 10 Location of Pain: Flank - left Pain Characteristics: Sharp Associated Signs and Symptoms: Positive: Change in Appetite - decreased oral intake, Flank Pain, Cough, Other: - SOB Aggravating Factor(s): Nothing Alleviating Factor(s): Nothing - Additional Pertinent History Primary Care Physician: [id number] - Allergy/Home Medications Allergies/Adverse Reactions: Allergies Allergy/AdvReac Type Severity Reaction Status Date / Time gluten Allergy Abdominal Verified 01/22/19 15:49 Pain Home Medications: Home Medications Carvedilol TAB* [Coreg TAB*] 12.5 mg PO BID 01/22/19 [History Confirmed 01/22/19 ] Insulin Glargine,Hum.rec.anlog [Basaglar Kwikpen] 20 unit SUBCUT QPM 01/22/19 [ History Confirmed 01/22/19] Insulin Lispro [Admelog Solostar] 0 unit SUBCUT .TID-QID 01/22/19 [History Confirmed 01/22/19] Pantoprazole TAB * [Protonix TAB*] 40 mg PO DAILY 01/22/19 [History Confirmed ] hydrALAZINE TAB* [Apresoline TAB*] 50 mg PO BID 01/22/19 [History Confirmed 10/03] PMH/Surg Hx/FS Hx/Imm Hx Endocrine/Hematology History: Reports: Hx Diabetes - Type 1 Denies: Hx Anticoagulant Therapy, Hx Blood Disorders, Hx Blood Transfusions, Hx Bone Marrow Disease, Hx Systemic Lupus Erythematosus, Hx Sickle Cell Disease , Hx Thyroid Disease, Hx Anemia, Hx Unexplained Bleeding, Other Endocrine/ Hematological Disorders Cardiovascular History: Denies: Hx Cardiac Arrest, Hx Hypotension, Hx Hypertension, Hx Pacemaker/ICD , Hx Peripheral Vascular Disease, Other Cardiovascular Problems/Disorders Respiratory History: Reports: Hx Pneumonia Denies: Hx Asthma, Hx Chronic Bronchitis, Hx Chronic Obstructive Pulmonary Disease (COPD), Hx Cystic Fibrosis, Hx Lung Cancer, Hx Pleural Effusion, Hx Pulmonary Edema, Hx Pulmonary Embolism, Hx Seasonal Allergies, Hx Sleep Apnea, Other Respiratory Problems/Disorders GI History: Reports: Hx Gastroesophageal Reflux Disease, Hx Gastrointestinal Bleed, Hx Ulcer - in the past, Other GI Disorders - Gastroparesis, Celiac's Denies: Hx Cirrhosis, Hx Crohn's Disease, Hx Diverticulosis, Hx Gall Bladder Disease, Hx Hiatal Hernia, Hx Irritable Bowel, Hx Jaundice, Hx Obstructive Bowel , Hx Ileostomy, Hx Pyloric Stenosis History: Reports: Hx Acute Renal Failure, Other Problems/Disorders - chronic kidney disease Denies: Hx Benign Prostatic Hyperplasia, Hx Chronic Renal Failure, Hx Dialysis, Hx Kidney Infection, Hx Kidney Stones, Hx Renal Disease Musculoskeletal History: Denies: Hx Arthritis, Hx Osteoporosis Sensory History: Reports: Hx Vision Problem Denies: Hx Cataracts, Hx Contacts or Glasses, Hx Eye Injury, Hx Eye Prosthesis, Hx Glaucoma, Hx Macular Degeneration, Hx Deafness, Hx Hearing Aid, Hx Hearing Problem, Other Sensory Impairments Opthamlomology History: Reports: Hx Vision Problem Denies: Hx Cataracts, Hx Contacts or Glasses, Hx Eye Injury, Hx Eye Prosthesis, Hx Glaucoma, Hx Macular Degeneration, Other Sensory Impairments Neurological History: Reports: Hx Headaches, Hx Nerve Disease - neuropathy r/t DM, Other Neuro Impairments/Disorders - nephro and neuroapthy r/t DM Denies: Hx Dementia, Hx Developmental Delay, Hx Migraine, Hx Seizures, Hx Spinal Cord Injury, Hx Transient Ischemic Attacks (TIA) Psychiatric History: Reports: Hx Anxiety, Hx Depression, Hx Post Traumatic Stress Disorder, Hx Inpatient Treatment, Hx Community Mental Health Tx, Hx Bipolar Disorder, Hx Substance Abuse Denies: Hx Attention Deficit Hyperactivity Disorder, Hx Eating Disorder, Hx Panic Disorder, Hx Schizophrenia, Hx Suicide Attempt, Hx of Violent Episodes Against Others, Other Psychiatric Issues/Disorders - Cancer History Cancer Type, Location and Year: celiac disease Hx Chemotherapy: No Hx Radiation Therapy: No - Surgical History Surgical History: Yes Surgery Procedure, Year, and Place: fistula left forearm 01/19/19 Hx Anesthesia Reactions: No - Immunization History Date of Tetanus Vaccine: utd Date of Influenza Vaccine: no Infectious Disease History: No Infectious Disease History: Denies: Hx Hepatitis, Hx Human Immunodeficiency Virus (HIV), Hx of Known/ Suspected MRSA, Hx Shingles, Hx Tuberculosis, History Other Infectious Disease, Traveled Outside the [place] in Last 30 Days - Family History Known Family History: Positive: Cardiac Disease, Diabetes Negative: Hypertension - Social History Alcohol Use: None Hx Substance Use: Yes Substance Use Type: Reports: Marijuana Substance Use Comment - Amount & Last Used: weekly small amount ( a few grams a week) Hx Tobacco Use: Yes Smoking Status (MU): Heavy Every Day Tobacco Smoker Type: Cigarettes Amount Used/How Often: 1/2 - 1 PPD a day and has smoked in the last 30 days Length of Time of Smoking/Using Tobacco: 20 years Have You Smoked in the Last Year: Yes Review of Systems Positive: Shortness Of Breath, Cough Positive: Other - decreased oral intake Positive: flank pain - left All Other Systems Reviewed And Are Negative: Yes Physical Exam - Summary Physical Exam Summary: Constitutional: Thin, Dry mucous membranes. Skin: Fistula with no surrounding erythema in the left forearm, Warm, Dry HENT: Normocephalic; Atraumatic Eyes: Conjunctiva normal Neck: Musculoskeletal ROM normal neck. (+) JVD, (-) Stridor, (-) Nuchal rigidity Cardio: Rhythm regular, rate normal, Heart sounds normal; Intact distal pulses; Radial pulses are 2+ and symmetric. (-) Murmur Pulmonary/Chest wall: Effort normal. Bilateral crackles at bases, slightly inc WOB, (-) Wheezes, (-) Rales Abd: Soft, (-) tenderness, (-) Distension, (-) Guarding, (-) Rebound Musculoskeletal: (-) Edema, mild L Flank TTP, no hematoma noted. Lymph: (-) Cervical adenopathy Neuro: Alert, Oriented x3 Psych: Mood and affect Normal Triage Information Reviewed: Yes Vital Signs On Initial Exam: Initial Vitals Temp Pulse Resp BP Pulse Ox 98.8 F 102 22 165/128 100 01/22/19 15:48 01/22/19 15:48 01/22/19 15:48 01/22/19 15:48 01/22/19 15:48 Vital Signs Reviewed: Yes Procedures - Sedation Patient Received Moderate/Deep Sedation with Procedure: No Diagnostics - Vital Signs Vital Signs Temp Pulse Resp BP Pulse Ox 01/22/19 15:48 98.8 F 102 22 165/128 100 - Laboratory Result Diagrams: 01/22/19 17:05 01/22/19 17:05 Lab Statement: Any lab studies that have been ordered have been reviewed, and results considered in the medical decision making process. - Radiology CXR Radiology Interpretation Completed By: Radiologist Summary of Radiographic Findings: Impression: 1. A mixture of alveolar and interstitial pulmonary edema is suspected. Trace airspace opacification described above could also be accounted for by infiltrate. 2. Small bilateral pleural effusions. ED physician has reviewed this report. - EKG 1721 Cardiac Rate: Tachycardia - 104 BPM EKG Rhythm: Sinus Tachycardia EKG Comparison: Other - Compared to 02/08/2018, there are new T-wave inversions in I and V3-V6. Summary of EKG Findings: An EKG at 1721 reveals sinus tachycardia at 104 BPM. T- wave inversions in I, V3, V4, V5, and V6. ED physician has reviewed and interpreted this EKG. Re-Evaluation - Re-Evaluation First Eval Re-Evaluation Time: 21:15 Change: Unchanged Comment: We discussed new plan for transferring instead of admission due to his history and need for emergent dialysis. Will give labetalol 20 IV for hypertension. Patient given 100 Lasix GIGU Course/Dx - Course Course Of Treatment: 38-year-old male with a history of diabetes, recent diabetic nephropathy Compcare by acute renal failure, presents with generalized feeling unwell. - Is reporting continued pain at biopsy site despite pain medications. Patient states he had a history of hemorrhage after biopsy has had multiple ultrasounds that showed stable resolution. Patient denies any symptoms. Patient also reports that he has shortness of breath, orthopnea and dyspnea on exertion. He reports fatigue. Denies chest pain. Patient states he was told to come to get dialysis from [facility]. - Labs notable for creatinine of 6, potassium is normal. Elevated BUN. Troponin normal, BNP> 1300 chest x-rays of bilateral patchy infiltrates consistent with pulmonary edema, patient to be given 100 IV Lasix as he still makes urine. Patient only dialysis, but he does not have infectious at this time. We'll discuss with nephrology guarding placed in a Vas-Cath. - Hb 2 points lower from 3 months ago , suspect secondary to history of renal hemorrhage. Consider renal US inpatient. No hematoma or flank tenderness noted. - Diagnoses Provider Diagnoses: Heart failure, CKD (chronic kidney disease), Hypertensive emergency - Physician Notifications Discussed Care Of Patient With: Katy Hayden - nephrology Time Discussed With Above Provider: 18:17 Instructed by Provider To: Other - I discussed the patient's case with Dr. Hayden who recommends 100mg Lasix and admission for Permacath placement; he is happy to see him in the hospital in the morning. I spoke with Dr. Toro, hospitalist, at 193, and he accepts the patient for admission. At 2099, Dr. Toro believes that patient will need to be transferred for emergent dialysis since the patient has a history of renal hemorrhaging, per nephrology. I spoke with the transfer center at 2129, and they will return the call to see if there is a bed available for the patient at [facility], which is the patient's preference. At 2149, I spoke with Dr. López, internalist at [facility], who accepts the patient for transfer. Reason For Transfer: Specialty or service not available at [facility]. - emergent dialysis, Patient not appropriate for [facility]. - Critical Care Time Critical Care Time: 30-74 min - 30 minutes for hypertensive emergency Discharge ED - Sign-Out/Discharge Documenting (check all that apply): Patient Departure - Patient will be transferred to [facility] accepted by Dr. López. - Discharge Plan Condition: Stable Disposition: TRANS HIGHER LVL OF CARE FAC Referrals: Genaro De Paz MD [Primary Care Provider] - - Billing Disposition and Condition Condition: STABLE Disposition: Trans Higher Lvl of Care Fac - Attestation Statements Document Initiated by Scribe: Yes Documenting Scribe: Jordana Roldan Provider For Whom Scribe is Documenting (Include Credential): Dr. Troy Romero MD Scribe Attestation: I, Jordana Roldan, scribed for Dr. Troy Romero MD on 01/22/19 at 2943. Scribe Documentation Reviewed: Yes Provider Attestation: The documentation as recorded by the Jordana deutsch accurately reflects the service I personally performed and the decisions made by me, Dr. Troy Romero MD Status of Scribe Document: Viewed
[2019-01-22 17:15] LABS: ABS Basophils 0.2 10^3/ul (0-0.2); ABS Eosinophils 0.1 10^3/ul (0-0.6); ABS Lymphocytes 0.9 10^3/ul (1.0-4.8); ABS Monocytes 0.7 10^3/ul (0-0.8); ABS Neutrophils 13.7 10^3/ul (1.5-7.7); Eosinophil % 0.6 %; Hematocrit 26 % (42-52); Hemoglobin 8.8 g/dL (14.0-18.0); Lymphocyte % 5.6 %; Mean Corpuscular HGB Conc 34 g/dL (31-36); Mean Corpuscular Hemoglobin 28 pg (27-31); Mean Corpuscular Volume 84 fL (80-94); Mean Platelet Volume 7.3 fL (7.4-10.4); Platelet Count 530 10^3/uL (150-450); Red Blood Count 3.11 10^6 /uL (4.18-5.48); Red Cell Distribution Width 14 % (10-15); White Blood Count 15.5 10^3/uL (3.5-10.8)
[2019-01-22 17:35] LABS: ALT 5 U/L (7-52); AST 15 U/L (13-39); Albumin 3.1 g/dL (3.2-5.2); Alkaline Phosphatase 91 U/L (34-104); Anion Gap 9 mmol/L (2-11); BUN/Creatinine Ratio 9.4 (8-20); Blood Urea Nitrogen 59 mg/dL (6-24); CO2 Carbon Dioxide 23 mmol/L (22-32); Calcium 8.4 mg/dL (8.6-10.3); Chloride 92 mmol/L (101-111); EGFR African American 12.2 (>60); EGFR Non-African American 10.1 (>60); Glucose 252 mg/dL (70-100); Potassium 4.2 mmol/L (3.5-5.0); Sodium 124 mmol/L (135-145); Total Protein 6.1 g/dL (6.4-8.9)
[2019-01-22] MEDS ORDERED: Furosemide IV* 10 MG/ML 10 ML VIAL (100 MG) IV ONE (18:23)
[2019-01-22 18:24] LABS: Troponin I 0.02 ng/mL (<0.04)
[2019-01-22] MEDS ORDERED: Metoclopramide IV* 5 MG/ML 2 ML VIAL IV SLOW PU ONE (18:41)
[2019-01-22] MEDS ORDERED: Labetalol IV* 5 MG/ML 20 ML VIAL IV PUSH ONE (21:39)
[2019-01-22 23:00] VITALS: BP 180/97
--- NOTE | 2019-01-22 23:36 | CONS ---
HOSPITAL MEDICINE CONSULTATION REPORT: DATE OF CONSULT: 01/22/19 - EMERGENCY DEPT PROVIDER: Luzma Moore NP. ATTENDING PHYSICIAN: Dr. Romero, emergency room. CONSULTING PHYSICIAN: Dr. Deonte Toro (dictated by Luzma Moore NP). REASON FOR CONSULT: Evaluation of acute renal failure. HISTORY OF PRESENT ILLNESS: Mr. Simmons is a 38-year-old male with a past medical history significant for depression, type 1 diabetes, celiac disease, diabetic neuropathy, who presented to the emergency room with complaints of shortness of breath, left flank pain, chills. The patient reports that he was recently admitted to [facility] for psychiatric reasons. During that time, the patient was found to have worsening renal failure. He reports this was found a few weeks ago while in [facility]. The patient reports that he was seen by a rabble furnace tender and had a left renal biopsy due to the acute worsening renal failure. The patient does report that he had moderate renal hemorrhage post biopsy that they monitored with renal ultrasound. He reports that his renal biopsy was approximately 1 week ago. The patient also underwent having an AV fistula placed in his left arm on Saturday. The patient reports that he was discharged on Saturday and was told that he would need dialysis before his AV fistula was mature. Due to the patient's progressively worsening shortness of breath, increased left flank pain, the patient presented to the emergency room for further evaluation. The patient denies any vomiting of blood , black or tarry stools. He does report chills. He denies any nausea or vomiting. He does report high blood sugars. He does report bilateral flank pain, left worse than right. He also complains of some mid upper abdominal pain. He does report he has had a cough x2 weeks. He states that he has not slept in weeks and has had a decreased appetite as well. He does report difficulty with urination. While in the emergency room, the patient had routine lab work drawn. He was found to have leucocytosis and worsening renal function with a BUN of 59 and creatinine of 6.27. On 08/16/18, his BUN was 38 and creatinine was 4.08. The patient had a chest x-rays that showed pulmonary vascular congestion versus pulmonary edema. Due to these findings, hospital medicine was asked to see and evaluate the patient for admission. PAST MEDICAL HISTORY: Significant for depression, type 1 diabetes, celiac disease, diabetic neuropathy, history of questionable gastroparesis, chronic kidney disease stage 4. PAST SURGICAL HISTORY: AV fistula placement in the left wrist on Saturday, left kidney biopsy approximately 1 week ago. HOME MEDICATIONS: Include: 1. Humalog sliding scale. 2. Lantus 20 units at h.s. 3. The patient reports he has been taking Zofran 4 mg ODT as needed for nausea. 4. Oxycodone 5/325 one tablet as needed for pain. 5. Ativan 1 mg - the patient reports that this prescription was not sent in and not filled. ALLERGIES: He has allergy to GLUTEN. No known drug allergies. SOCIAL HISTORY: The patient reports that he smokes a pack a day. He reports he has not smoked in 2 weeks. Denies any alcohol use. Does report daily marijuana use. He is currently disabled. He lives alone. He has no surrogate decision maker, "I have no body to list." The patient is unsure of his code status at this time. REVIEW OF SYSTEMS: A 14-point review of systems was completed. All pertinent positives are mentioned in the HPI, otherwise are negative. PHYSICAL EXAM: General: At this time, Mr. Simmons is a 38-year-old male. He is sitting on the stretcher in the emergency room. He is alert and oriented. His speech is clear. He appears agitated and upset about his recent care and needing dialysis. He has mild respiratory distress. Vital signs: Blood pressure 195/107, heart rate 107, respirations are 20 to 24, O2 saturation 94%, temperature is 98.8. HEENT: Head is atraumatic, normocephalic. Eyes: EOMs are intact. Sclerae anicteric and not pale. Oral mucosa appeared to be moist. Neck is supple. Lungs have crackles in the bases bilaterally. There are no wheezes. Cardiac: S1, S2. He is tachycardic with a regular rate. There are no murmurs, rubs, or gallops. Abdomen is soft. He does complain of mid epigastric tenderness. Bowel sounds are present x4. He does have positive left CVA tenderness, mild right CVA tenderness, left definitely worse than right. Extremities: He is able to move all 4 extremities. No clubbing or cyanosis. Radial pulses are +2 bilaterally. Pedal pulses are +2 bilaterally. Neurologic: He is awake, alert, oriented x3. Speech is clear. Thought process intact. There is no gross focal deficit. Skin: He does have an incision noted to his left wrist from recent AV fistula placement. LABORATORY DATA AND DIAGNOSTIC STUDIES: WBCs 15.5, RBCs 3.11, hemoglobin 8.8, hematocrit was 26, platelet count was 530. Venous blood gas, pH was 7.40, PCO2 was 38, PO2 was less than 38, HCO3 was 22.5. Sodium 124, potassium 4.2, chloride 92, carbon dioxide was 23, anion gap of 9, BUN was 59, creatinine 6.27 , glucose was 252, calcium 8.4. AST 15, ALT 5, alkaline phosphatase 91, troponin was 0.02. BNP was greater than 1300. Lipase was less than 10. He had a chest x-ray; radiologist impression: A mixture of alveolar and interstitial pulmonary edema as expected, a trace air space opacification seen in the right lateral costophrenic angle, which could also account for an infiltrate, small bilateral pleural effusion. He had an electrocardiogram which showed sinus tachycardia at a rate of 104. He has T-wave inversions in lead 1, AVL, V3, 4, 5 and 6 which are new when compared to EKG from 03/10/18. IMPRESSION AND PLAN: Mr. Simmons is a 38-year-old male with a past medical history significant for depression, type 1 diabetes, diabetic neuropathy, history of questionable gastroparesis and chronic kidney disease stage 4, depression, who presented to the emergency room with complaints of worsening shortness of breath, left flank pain, found to be in worsening acute renal failure. Our recommendations are as follows: 1. Acute on chronic renal failure. The patient does have worsening renal failure. He is hypertensive with a blood pressure of 195/107. He is tachycardic with a heart rate of 107. He was found to have pulmonary interstitial edema on chest x- ray with a BNP of greater than 1300. He was also found to have mild anemia with an H and H of 8.8 and 26. I did discuss this case with Dr. Hayden from Nephrology. Given that the patient reports a recent moderate renal hemorrhage post biopsy, his shortness of breath, acute worsening renal failure, and our inability to provide emergent dialysis, it was recommended by Dr. Samih that the patient be transferred to a facility where he could get emergent dialysis should the patient continue to have progressively worsening shortness of breath and uncontrolled hypertension and the possible need to further evaluate his recent left renal hemorrhage. So at this time, I recommend that the patient be transferred to a higher level of care where he can receive emergent dialysis. I have discussed this with Dr. Deonte Toro and Dr. Romero who are in agreement with this plan. Care has been transferred back to Dr. Romero in the emergency room, and she will facilitate transfer to another facility where he can receive emergent dialysis. 2. EKG changes. The patient does have an abnormal EKG with T-wave inversions in the V leads, which is new when compared to prior EKG. I would recommend followup on his abnormal EKG. At this time, the patient has no chest pain. He does report feeling short of breath. Aspirin will be contraindicated due to the patient's recent renal hemorrhage post biopsy and worsening anemia. At this time, the patient should be transferred to a higher level of care for possible need of emergent dialysis for further management of his acute on chronic renal failure as per the recommendations of Dr. Hayden from Nephrology. I have discussed this with my attending Dr. Deonte Toro. He is in agreement with my plan. Dr. Romero from the emergency room has been updated and will assume care and transfer of the patient to a higher level of care. LUZMA MOORE, GALI [id number]/[facility] #: [id number] DES[place]
== END 2019-01-22 22:55 | disposition short-term general hospital (02) ==
LOC: ED 15:48
DX: I13.2 Hypertensive heart and chronic kidney disease with heart failure and with stage 5 chronic kidney disease, or end stage renal disease (principal); E10.22 Type 1 diabetes mellitus with diabetic chronic kidney disease; N18.6 End stage renal disease; I50.9 Heart failure, unspecified; J90 Pleural effusion, not elsewhere classified; Z99.2 Dependence on renal dialysis; K21.9 Gastro-esophageal reflux disease without esophagitis; F41.9 Anxiety disorder, unspecified; F32.9 Major depressive disorder, single episode, unspecified; F43.10 Post-traumatic stress disorder, unspecified; F17.210 Nicotine dependence, cigarettes, uncomplicated; Z79.4 Long term (current) use of insulin; Z79.899 Other long term (current) drug therapy
CPT/HCPCS: 36415; 71046; 80053; 82803; 83690; 83880; 84484; 85025; 93005; 96374; 96375; 96376; 99285; J1940; J2270; J2405; J2765

== ENCOUNTER 2019-02-04 18:34 | Inpatient (IN) | payer OTHER ==
--- OUTSIDE RECORDS SUMMARY | 2019-02-04 18:49 | XMS REPORT | Summary of Care ---
:1980 Author Organization [facility] Address [address] [place] [address] Care Team Providers Name Role Phone Genaro De Paz MD Primary Care Provider Reason for Visit Auth/Cert Status Reason Specialty Diagnoses / Procedures Referred By Contact Referred To Contact Diagnoses Renal failure (ARF), acute on chronic [N17.9, N18.9] Acute renal failure Encounter Details Date Type Department Care Team Description 01/23/2019 - Hospital Encounter 08G CARDIOTHORACIC Maury López MD [address], [place] [id number] ESRD (end stage 01/27/2019 [address] [facility] Lorenzo Gallardo MD [address] [place] [address] [phone] renal disease) [place] [address] Allergies Active Allergy Reactions Severity Noted Date Comments Fentanyl Other (See Comments) Medium 01/23/2019 "Fentanyl made me very sick" Gluten Free-In Food High 01/23/2019 documented as of this encounter (statuses as of 01/27/2019) Medications Medication Sig Dispensed Refills Start Date End Date Status Carvedilol 12.5 MG Take 1 tablet 60 tablet 11 01/27/2019 01/26/2020 Suspended Oral Tablet (COREG) by mouth Two Times Daily Additional information Docusate Sodium 100 Take 1 capsule by 20 capsule 0 01/27/2019 02/06/2019 Suspended MG Oral Capsule mouth Two Times (COLACE) Daily for 10 days Additional information Furosemide 40 MG Oral Take 3 tablets by 180 tablet 11 01/27/20192019 Suspended Tablet (LASIX) mouth Two Times Daily Additional information hydrALAZINE HCl 50 MG Take 1 tablet by 60 tablet 11 01/27/2019 01/26/2020 Suspended Oral Tablet mouth Two Times (APRESOLINE) Daily Additional information Ondansetron HCl 4 MG Take 1 tablet by 20 tablet 0 01/27/2019 02/03/2019 Suspended Oral Tablet (ZOFRAN) mouth every 8 (eight) hours as needed for up to 7 days Additional information Pantoprazole Sodium 40 Take 1 tablet by 30 tablet 1 01/28/2019 01/27/2020 Suspended MG Oral Tablet Delayed mouth daily Release (PROTONIX) Additional information Polyethylene Glycol Take 1 packet by 14 each 0 01/28/2019 01/31/2019 Suspended 3350 Oral Packet mouth daily for 3 (MIRALAX) daysPlease substitute bottle for packets, if packets are unavailable. Additional information QUEtiapine Fumarate 50 Take 1 tablet by 30 tablet 0 01/27/2019 02/26/2019 Suspended MG Oral Tablet mouth nightly (SEROquel) Additional information Senna 8.6 MG Oral Tablet Take 2 tablets by mouth 120 each 0 01/27/2019 Suspended nightly Additional information Sevelamer HCl 800 MG Take 2 tablets by 180 tablet 11 01/27/20192019 Suspended Oral Tablet (RENAGEL) mouth Three times daily with meals Additional information Alcohol Swabs Pad Use as directed. use 8-10 per 200 each 1 01/27/2019 Suspended day, E11.65, #200, 1 refill Additional information Insulin Syringe-Needle U-100 #200. Use 4-6 daily, 200 each 1 01/27/2019 Suspended 31G X 15/64" 0.5 ML E10.65, 3 refill Additional information Insulin Glargine 100 Inject 12 Units 5 pen 1 01/27/2019 01/26/2020 Suspended UNIT/ML Subcutaneous subcutaneously every Solution Pen-injector nightly, MDD 12 (LANTUS SOLOSTAR, BASAGLAR) Additional information Insulin Pen Needle 31G X Use as directed. Use 4-6 200 each 1 01/27/2019 Suspended 5 MM needles per day. Additional information documented as of this encounter (statuses as of 01/27/2019) Active Problems Problem Noted Date Suicide ideation 01/27/2019 Renal failure (ARF), acute on chronic 01/23/2019 documented as of this encounter (statuses as of 01/27/2019) Social History Tobacco Use Types Packs/Day Years Used Date Former Smoker Cigarettes 1.5 15 Quit: 01/12/2019 Smokeless Tobacco: Never Used Alcohol Use Drinks/Week oz/Week Comments Never Alcohol Habits Answer Date Recorded How often do you have a drink containing alcohol? Never 01/27/2019 How many drinks containing alcohol do you have on a typical Not asked day when you are drinking? How often do you have six or more drinks on one occasion? Not asked Social Isolation Answer Date Recorded In a typical week, how many times do you talk on the phone Once a week 2018 with family, friends, or neighbors? How often do you get together with friends or relatives? Once a week 2018 How often do you attend samaritan or pentecostalism services? Never 01/27/2019 Do you belong to any clubs or organizations such as samaritan No 01/27/2019 groups, unions, fraternal or athletic groups, or school groups? How often do you attend meetings of the clubs or Never 01/27/2019 organizations you belong to? Are you now , , , , never 01/27/2019 or living with a partner? Financial Resource Strain Answer Date Recorded How hard is it for you to pay for the very basics like Somewhat hard 2018 food, housing, medical care, and heating? Intimate Partner Violence Answer Date Recorded Within the last year, have you been afraid of your partner or No 01/27/2019 ex-partner? Within the last year, have you been humiliated or emotionally No 01/27/2019 abused in other ways by your partner or ex-partner? Within the last year, have you been kicked, hit, slapped, or No 01/27/2019 otherwise physically hurt by your partner or ex-partner? Within the last year, have you been raped or forced to have any No 01/27/2019 kind of sexual activity by your partner or ex-partner? Sex Assigned at Date Recorded Not on file Job Start Date Occupation Industry Not on file Not on file Not on file Travel History Travel Start Travel End No recent travel history available. documented as of this encounter Last Filed Vital Signs Vital Sign Reading Time Taken Comments Blood Pressure 129/71 01/27/2019 1:47 PM EST Pulse 76 01/27/2019 12:00 PM EST Temperature 36.5 01/27/2019 12:00 PM EST C (97.7 F) Respiratory Rate 19 01/27/2019 12:00 PM EST Oxygen Saturation 98% 01/27/2019 12:00 PM EST Inhaled Oxygen Concentration - - Weight 55.5 kg (122 lb 6.4 oz) 01/27/2019 5:38 AM EST Height 175.3 cm (5' 9") 01/23/2019 9:02 AM EST Body Mass Index 18.08 01/23/2019 9:02 AM EST documented in this encounter Progress Notes Елена Borja RN - 01/27/2019 4:10 PM [id number]: Discharge paperwork provided for patient, patient refused education about all medications but did accept paperwork. Continued to state he "does not need to go to the [facility]". Informed patientthat unfortunately he is being admitted involuntarily and he must go. Patient refused to sign discharge paperwork, but did allow student RN to discontinue his IV. Report given to charge nurse Quin on 4B. Patient belongings sent down to 4B with DATA VISUALIZATION DEVELOPER and patient escorted by security. Josie Fischer LCSW - 01/27/2019 2:57 PM ESTSW was notified by bed control of [facility] bed availability at [facility] on [facility]. Unit charge nurse will faxlegals to psych unit. Doctor to doctor attending report will take place. SW contacted admitting to secure bed. SW contacted [facility], was notified there is no bed availability today and SW cancelled referral.Electronically signed by Josie Humphrey LCSW at 2018 2:58 PM Елена Cuenca RN - 01/27/2019 1:34 PM ESTLate entry: On 01/26--patient threw phone on the floor. The screen had previously been cracked but when he threwit, the back popped off. Phone was confiscated with belongings. Unsure if it is going to work now. Josie Fischer LCSW - 01/27/2019 10:55 AM ESTSW spoke to patient this morning, offering the refer for [facility]. Patient was agitated and resistance to assistance. Stated " They won't help, they won't force the cabs to show up." Patient has had problems with medicaid transportation in the past being scheduled and not showing up to pick him up. SW attempted to offer support, patient was not interested in listening. Patient declined any assistance at this time. SW told patient [facility] requested faxed referral for inpatient Psychiatric placement as they are expecting discharges later today. Patient stated " I don't need a suicide watch anymore." SW faxed all information including involuntary legals. SW will continue to follow. Abdullahi Perez MD - 01/27/2019 5:55 AM EST Clinical chart review this am. Excellent diuresis with staring loop diuretic (>2.4 L UO). Visit Vitals BP 151/87 (BP Location: Right leg, Patient Position: Lying) Pulse 81 Temp 36.8 C (98.2 F) (Oral) Resp 14 Ht 1.753 m (5' 9") Wt 55.5 kg (122 lb 6.4 oz) SpO2 97% BMI 18.08 kg/m BP improved. Labs reviewed. Will need to start iron supplementation. Psychiatry note reviewed. Recommendations for inpatient psychiatry involuntary admit. Would advised contact either [place] or [place] inpatient psychiatry units which would also permithis previous nephrologists to re-assume care of this ckd5. I have restricted fluids on diet trays given persistence of hyponatremia. There remains no acute indication to start RRTx a this time. Risks of vascath and/or permcath does not justify placement at this time. Goal to achieve medical therapy for ckd5 until avf is mature enough to begin RRTx. IF acute indication for HD arises then risk of placing central dialysis catheter will be discussed with patient further. Would recommend d/c to psychiatry inpatient (as recommended) and follow up with previous nephrology care at [place] or [place] within 3-5 days of transfer. Will remain available for clinical review and delivery of renal care while at > Abdullahi Shultz MD Joshua Tyler RN - 01/26/2019 11:48 PM Haydee beard text-paged request to inform primary team that the patient refused his evening seroquel dose. Patient refused to give a reason why he refused the seroquel. Елена Cuenca RN - 01/26/2019 6:52 PM [id number]: Patient agreed to change into hospital appropriate gown (snap-back) . States he is "an idiot for saying all that stuff before." Becki Villafuerte MD - 01/26/2019 5:43 PM EST Internal Medicine Inpatient Progress Note Subjective Patient seen and examined at bedside. Overnight complained of left sided flank plan around renal biopsy site however refused examination. He also refused Am labs. He reports flank pain, nausea and difficulty urination. He denies fever, chills, shortness of breath Review of Systems Constitutional: Negative for chills and fever. HENT: Positive for voice change. Respiratory: Negative for chest tightness and shortness of breath. Cardiovascular: Negative for chest pain and leg swelling. Gastrointestinal: Positive for nausea. Genitourinary: Positive for difficulty urinating and dysuria. Musculoskeletal: Positive for back pain. Neurological: Negative for light-headedness, numbness and headaches. Objective Temp: [36.4 C-36.5 C] 36.5 C Pulse: [82-89] 82 Resp: [14-20] 16 BP: (151-158)/(83-93) 151/83 SpO2: [96 %-100 %] 97 % O2 Therapy: Room air O2 Flow Rate (L/min): [2 L/min] 2 L/min Intake/Output Summary (Last 24 hours) at 01/26/2019 1743 Last data filed at 01/26/2019 1500 Gross per 24 hour Intake 560 ml Output 1925 ml Net -1365 ml I/O last 3 completed shifts: In: 920 [P.O.:920] Out: 1925 [Urine:1925] No intake/output data recorded. Physical Exam HENT: Head: Normocephalic and atraumatic. Cardiovascular: Normal rate and regular rhythm. Abdominal: Soft. Normal appearance and bowel sounds are normal. There is tenderness. Musculoskeletal: General: No swelling. Neurological: He is alert. Skin: Skin is warm and dry. Lines, Tubes, Monitors & Restraints Description Still Required? Comments PIV [] Yes [] No Telemetry [] Yes [] No Total Days of Anti-infective Therapy: 0 Laboratory Data (Most Recent in Past 3 Days) Lab 01/24/19 0241 01/25/19 1342 WBC 8.8 8.4 HGB 8.5* 10.3* HCT 25.6* 31.2* MCV 84.8 85.0 PLT 468* 512* Lab 01/24/19 0241 01/25/19 1342 NA 125* 124* K 3.9 3.6 CL 86* 85* BICARBONATE 24 26 GLUCOSE 232* 130 BUN 59* 54* CREATININE 6.85* 6.72* Lab 01/25/19 1342 CALCIUM 8.5* MG 2.2 PHOS 5.6* Lab 01/24/19 0241 01/25/19 1342 NEUTOPHILPCT 72 81 LYMPHOPCT 15 9 MONOPCT 8 5 EOSPCT 4 4 Invalid input(s): BILDIR Xr Chest Frontal Only Result Date: 01/23/2019 PROCEDURE INFORMATION: Exam: XR Chest, 1 View Exam date and time: 01/23/2019 1: 01 AM Clinical history: 38 years old, male; Other: Evalaute for pulmonary edema TECHNIQUE: Imaging protocol: XR of the chest Views: 1 view. COMPARISON: OT CXR CHEST PA LAT 2 VWS 01/22/2019 5:30 PM FINDINGS: Lungs: Pulmonary edema. Small bilateral pleural effusion with adjacent atelectasis vs consolidation. Pleural space: SeeLungs Finding. No discernible pneumothorax. Heart/Mediastinum: Unremarkable. No cardiomegaly. Bones/joints: Unremarkable. IMPRESSION: 1. Pulmonary edema. 2. Small bilateral pleural effusion with adjacent atelectasis vs consolidation. Overall, no significant interval change in the appearance of lungs since prior study. THIS DOCUMENT HAS BEEN ELECTRONICALLY SIGNED BY GRACIE GARZA MD Us Renal Or Aorta Complete Result Date: 01/23/2019 INDICATION:38 years old Male with worsening kidney status, acute on chronic kidney disease, type 1 diabetes. History of hematoma after recent biopsy( a few weeks ago.) PROCEDURE: US RENAL OR AORTA COMPLETE 29814 COMPARISON: No prior. TECHNIQUE: Grayscale and color Doppler ultrasound of the abdomen. FINDINGS: RIGHT KIDNEY: 10.9 cm in maximum dimension. Cortical thickness measures 1.2 cm Multiple echogenic foci with twinkling artifact are demonstrated in the right kidney with the largest measuring 0.3 cm in the interpolar region, consistent with nonobstructive renal stones.. No hydronephrosis or demonstrated mass. Normal vascular flow. LEFT KIDNEY: 9.8 cm in maximum dimension. Cortical thickness measures 1.0 cm. No hydronephrosis or stone. Normal vascular flow is demonstrated. Complex fluid collection adjacent to the lower pole measures 5.3 cm x 5.0 cm x 1.4 cm, favored to be a hematoma. BLADDER: Not demonstrated Right pleural effusion noted. IMPRESSION: 1. Echogenic fluid collection around the left lower pole kidney is favored to represent a small hematoma. Correlation with CT abdomen and/or MR may be helpful for further clarification, as clinically indicated. 2. Nonobstructive right renal lithiasis. END IMPRESSION Assessment/Plan Mr. Barron Mederos is a 38 y.o. male with HTN, CKD stage 5, and DMT1 presented from OSH for worsening renal failure secondary to poorly controlled diabetes leading to nephropathy #Renal failure (ARF), acute on CKD stage 5 #Diabetic nephropathy - Likely secondary to uncontrolled type 1 diabetes leading to nephropathy - Kidney biopsy (01/06/19) characteristic of diabetic nephropathy - Patient continues to have pain at the site of biopsy and left flank pain - AVF placed on 01/19, needs 6 weeks to mature - Nephrology on board; recommend no need for acute HD at this time, start lasix 120mg BID, Renvela 160mg TID with meals. Patient to follow-up with attenuator in [place] who did the renal biopsy - Patient refused AM labs - pain control with oxycodone 5mg and 10mg q4h prn #DMType 1 - Continue Lantus 12U nightly and medium dose sliding - will continue to monitor #Hypertensive emergency, resolved #Hyertention - SBP 150-160 and DBP 80-90 - Will continue IV labetalol 20mg PRN for SBP >160 - Continue Coreg 12.5mg BID, hydralazine 50mg BID #Acute hypoxic respiratory failure,resolved - saturating at 97% on room air - Will continue monitor #Hyponatremia, improving - Pt refused labs this AM - Last Na was 124 on 01/25 #Anxiety #Depression - Currently not on any medications - Will continue to monitor DVT Prophylaxis: SCD's while in bed GI Prophylaxis: PPi Reason: History of GERD Functional Status: mildly impaired Code Status: DNR/DNI Disposition: Plan discharge to: Home Estimated Discharge Date: TBD The patient was discussed with Lorenzo Gallardo MD who agrees with the assessment and plan as noted above. Signature: Becki Mcpherson MD Date/Time: January 26, 2019 5:43 PM Associated attestation - Lorenzo Gallardo MD - 01/26/2019 7:07 PM ESTAttending Addendum- Lorenzo Gallardo MD I saw and evaluated the patient with the reisdent. Discussed with the resident and agree with the residents findings as documented in the resident's note. I independently reviewed the medications and all the orders. Michelle Queen RN - 01/26/2019 12:40 PM ESTCM received update from [facility] in [place] requesting updated medical information. CM spoke to attending who stated the patient will not need dialysis per nephrology. CM reviewed Team Notes. Patient currently on 1:1 sitter for Suicudal ideation. CM to continue to follow to formalize discharge plan. Abdullahi Perez MD - 01/26/2019 9:59 AM EST Reports nausea this am Vomited a small amount at the time of my visit. I have reviewed records: Apparently has renal biopsy at OSH with note of perinephric (left) bleed post procedure Biopsy report, per resident note: "kidney bx (01/06/19- per [facility]) performed which was complicated by left renal hematoma, showed "neartotal glomerulosclerosis, interstitial fibrosis and tubular atrophy associated with changes characteristic of diabetic nephropathy" AVF place d on 01/19 in [place]. Visit Vitals BP 154/87 (BP Location: Right leg, Patient Position: Lying) Pulse 84 Temp 36.4 C (97.5 F) (Oral) Resp 14 Ht 1.753 m (5' 9") Wt 61.1 kg (134 lb 11.2 oz) SpO2 96% BMI 19.89 kg/m Results for BARRON MEDEROS ( ) as of 01/26/2019 10:02 Ref. Range 01/25/2019 13:42 Sodium Latest Ref Range: 136 - 145 mmol/L 124 (L) Potassium Latest Ref Range: 3.4 - 5.1 mmol/L 3.6 Chloride Latest Ref Range: 98 - 107 mmol/L 85 (L) Bicarbonate Latest Ref Range: 22 - 29 mmol/L 26 Blood Urea Nitrogen Latest Ref Range: 6 - 20 mg/dL 54 (H) Creatinine Latest Ref Range: 0.70 - 1.20 mg/dL 6.72 (H) Glucose Latest Ref Range: 70 - 140 mg/dL 130 Calcium Latest Ref Range: 8.6 - 10.0 mg/dL 8.5 (L) Phosphorus Latest Ref Range: 2.5 - 4.5 mg/dL 5.6 (H) IMPRESSION: ESRD needing to start HD, though no indication for acute start Patient should have a trial of medical therapy while he awaits for his avf to mature. PLAN: Recommend: Restrict diet to renal with no more than 1L fluids/day Start Lasix 120 mg bid Start Renvela 160 mg tid with meals May be d/c to home with follow up with his primary attenuator in [place] this week. Further decision making to be made by his primary attenuator (renal biopsy and avf) Thank you Abdullahi Shultz MD Radha Gil RN - 01/26/2019 5:20 AM ESTAt approx 2300 Pt requested RN check his sugar, Pt stated he "doesn't feel right". Pt blood sugar 182. Pt BP noted to be elevated. Pt also complained of nausea w/ emesis earlier. Pt medicated w/ PRN reglan w/ good effect. Night float notified of Pts complaints, Pt reluctant to examination. Pt found to be sleeping when reassessed. RN attempted to draw AM labs, RN attempted to draw Pt 1x, upon needle insertion Pt stated "it hurt to much, stop". Pt refusing to be drawn again, Pt stated he does not want to poked numerous times andrefuses lab work. Pt noted to be anxious and agitated when approached for AM blood work. Night floatnotified. Karin Martin MD - 01/25/2019 11:28 PM ESTNIGHT FLOAT NOTE Patient was seen bedside. Per nurse, patient was nauseous and had 1 episode of vomitting, was given PRN Reglan. BP 158/92. Patient stated that the nausea has improved a little but the pain is severe and he is due for his pain meds in 30 mins now and he will take them. He complained of pain over left CVA , however refused any further examination or questions. His high BP likely due to pain. Asked the nurse to administer pain meds as scheduled and recheck BP after that. Karin Beard, PGY-1. Silvestre Aquino MD - 01/25/2019 2:08 PM EST Nephrology Inpatient Progress Note Length of stay: 2 days Active Problems: Renal failure (ARF), acute on chronic Subjective: Clinically reviewed He was more calm and composed today. Except some flank pain on the left side, he was generally feeling ok. His gastric pain has significantly settled down. Review of Systems: All systems reviewed. Pertinent positives and negatives as in history of presenting illness. Allergies Allergen Reactions Fentanyl Other (See Comments) "Fentanyl made me very sick" Gluten Free-In Food Scheduled Meds: carvedilol 12.5 mg Oral BID docusate sodium 100 mg Oral BID hydrALAZINE 50 mg Oral BID insulin glargine 12 Units Subcutaneous Nightly insulin lispro 1-16 Units Subcutaneous 3 x Daily with Meals pantoprazole 40 mg Oral Daily polyethylene glycol 17 g Oral Daily senna 2 tablet Oral Nightly Continuous Infusions: PRN Meds:dextrose, glucagon (human recombinant), glucose, [START ON 01/27/2019] labetalol, metoclopramide (REGLAN) injection, ondansetron OR ondansetron, oxyCODONE OR oxyCODONE Objective: Vital signs in last 24 hours: Temp: [36.2 C (97.1 F)-36.6 C (97.9 F)] 36.6 C (97.8 F) Pulse: [73-93] 85 Resp: [11-19] 15 BP: (145-171)/(76-96) 145/76 SpO2: [97 %-100 %] 100 % O2 Therapy: Oxygen O2 Flow Rate (L/min): [2 L/min] 2 L/min Intake/Output last 3 shifts: I/O last 3 completed shifts: In: 1620 [P.O.:1620] Out: 2675 [Urine:2675] Intake/Output this shift: I/O this shift: In: 480 [P.O.:480] Out: 625 [Urine:625] Physical Exam: Visit Vitals BP 145/76 (BP Location: Right leg, Patient Position: Lying) Pulse 85 Temp 36.6 C (97.8 F) (Oral) Resp 15 Ht 1.753 m (5' 9") Wt 61.1 kg (134 lb 11.2 oz) SpO2 100% BMI 19.89 kg/m Constitutional: Frail and apparently undernourished. Moaning due to abdominal discomfort. Oriented and having a coherent speech. Head: Normocephalic and atraumatic. Eyes: Pupils are equal, round. No conjunctival discharge. Neck: No JVD present. No visible neck mass. Cardiovascular: S1 S2 No Pericardial rubs. Pulmonary/Chest: Some basal rales. Good air entry on anterior examination. Musculoskeletal: No edema and no tenderness. Skin: Skin is warm and dry. No rash noted. No erythema. Psychiatric: Distressed and depressed mood and effect. Data Review Recent Labs Lab 01/23/195301/24/19 024 NA 121* 125* K 4.4 3.9 CL 83* 86* BICARBONATE 21* 24 BUN 57* 59* CREATININE 6.27* 6.85* GLUCOSE 315* 232* CALCIUM 8.7 8.0* PHOS 4.9* -- Recent Labs Lab 01/23/195301/24/19 0241 HCT 27.4* 25.6* HGB 9.1* 8.5* MCH 28.2 28.1 MCHC 33.0 33.1 MCV 85.3 84.8 PLT 517* 468* RDW 13.7 14.0 WBC 14.4* 8.8 Assessment/Plan: Mr Mederos is a 38 yr old gentleman with a past medical history as in records including but not limited to Type 1 DM with end organ damage, CKD Stage V approaching ESRD who presented with pulmonary edemaand volume overload in the settings of worsening nephropathy. He has responded very well to 120 mg of IV Lasix with a good diuretic response. Clearance remains poor and has worsened. 1. Renal - CKD stage V approaching ESRD. I.O - 1,620/ 2,675 mls. Aim for Permacath in am. Check On for HD tomorrow. 2. Electrolytes - Hypervolemic Hyponatremia with normokalemia. 3. Acid/Base Status - Normal bicarb. 4. Mineral and Bone - Check Phos and PTH please. 5. Volume Status - Slightly hypervolemic. 6. Hematologic - 8.5.6 - Check Iron Profile , PTH and TSH. 7. Dietary Recommendations - None for now till Phos level is available. 8. Medications - Please dose all medication for an estimated GFR less than 10. 9. Blood Pressure - Ranging between 140 - 170s systolic with diastolic in 70- 90s. No acute concerns Case discussed with Dr. Denisse GREEN Fellow-Division of Nephrology, [facility]ron[facility] signed by Marshal Salcedo MD at 2018 3:56 PM EST Associated attestation - Marshal Salcedo MD - 01/25/2019 3:56 PM ESTPlease see resident notes for details. I have interviewed and examined the patient and confirmed thehistory, examination, assessment and plan as noted in the resident note. I have not edited the resident note. Labs obtained/reviewed. Sakina Broussard DO - 01/25/2019 11:01 AM EST Internal Medicine Inpatient Progress Note Subjective Examined patient at bedside this morning. He was nauseous and vomiting. He complained of flank painas well. Review of Systems Constitutional: Negative for chills and fever. Eyes: Negative for visual disturbance. Respiratory: Negative for cough, chest tightness, shortness of breath and wheezing. Cardiovascular: Negative for chest pain, palpitations and leg swelling. Gastrointestinal: Positive for nausea and vomiting. Negative for abdominal pain. Genitourinary: Positive for flank pain. Musculoskeletal: Negative for neck pain and neck stiffness. Skin: Negative for rash. Objective Temp: [36.2 C-36.8 C] 36.6 C Pulse: [73-93] 85 Resp: [11-19] 16 BP: (141-171)/(75-96) 157/96 SpO2: [97 %-100 %] 100 % O2 Therapy: Oxygen O2 Flow Rate (L/min): [2 L/min] 2 L/min Intake/Output Summary (Last 24 hours) at 01/25/2019 1101 Last data filed at 01/25/2019 0836 Gross per 24 hour Intake 1380 ml Output 2300 ml Net -920 ml I/O last 3 completed shifts: In: 1620 [P.O.:1620] Out: 2675 [Urine:2675] I/O this shift: In: 120 [P.O.:120] Out: 200 [Urine:200] Physical Exam HENT: Head: Normocephalic and atraumatic. Nose: Nose normal. Mouth/Throat: Mucous membranes are moist. Eyes: Pupils are equal, round, and reactive to light. Cardiovascular: Normal rate and regular rhythm. No murmur heard. Pulmonary/Chest: Effort normal. No respiratory distress. He has no wheezes. Abdominal: He exhibits no distension. There is no tenderness. There is no guarding. Musculoskeletal: Right lower leg: No edema. Left lower leg: No edema. Neurological: He is alert. Skin: No rash noted. No erythema. No pallor. Total Days of Anti-infective Therapy: 0 Laboratory Data (Most Recent in Past 3 Days) Lab 01/23/194 01/24/19 0241 WBC 14.4* 8.8 HGB 9.1* 8.5* HCT 27.4* 25.6* MCV 85.3 84.8 PLT 517* 468* Lab 01/23/194 01/24/19 0241 NA 121* 125* K 4.4 3.9 CL 83* 86* BICARBONATE 21* 24 GLUCOSE 315* 232* BUN 57* 59* CREATININE 6.27* 6.85* Lab 01/23/19 0054 01/24/19 0241 CALCIUM 8.7 8.0* MG 2.2 -- PHOS 4.9* -- Lab 01/23/194 01/24/19 0241 NEUTOPHILPCT 89 72 LYMPHOPCT 6 15 MONOPCT 5 8 EOSPCT 0 4 Invalid input(s): BILDIR Xr Chest Frontal Only Result Date: 01/23/2019 PROCEDURE INFORMATION: Exam: XR Chest, 1 View Exam date and time: 01/23/2019 1: 01 AM Clinical history: 38 years old, male; Other: Evalaute for pulmonary edema TECHNIQUE: Imaging protocol: XR of the chest Views: 1 view. COMPARISON: OT CXR CHEST PA LAT 2 VWS 01/22/2019 5:30 PM FINDINGS: Lungs: Pulmonary edema. Small bilateral pleural effusion with adjacent atelectasis vs consolidation. Pleural space: SeeLungs Finding. No discernible pneumothorax. Heart/Mediastinum: Unremarkable. No cardiomegaly. Bones/joints: Unremarkable. IMPRESSION: 1. Pulmonary edema. 2. Small bilateral pleural effusion with adjacent atelectasis vs consolidation. Overall, no significant interval change in the appearance of lungs since prior study. THIS DOCUMENT HAS BEEN ELECTRONICALLY SIGNED BY GRACIE GARZA MD Us Renal Or Aorta Complete Result Date: 01/23/2019 INDICATION:38 years old Male with worsening kidney status, acute on chronic kidney disease, type 1 diabetes. History of hematoma after recent biopsy( a few weeks ago.) PROCEDURE: US RENAL OR AORTA COMPLETE 54637 COMPARISON: No prior. TECHNIQUE: Grayscale and color Doppler ultrasound of the abdomen. FINDINGS: RIGHT KIDNEY: 10.9 cm in maximum dimension. Cortical thickness measures 1.2 cm Multiple echogenic foci with twinkling artifact are demonstrated in the right kidney with the largest measuring 0.3 cm in the interpolar region, consistent with nonobstructive renal stones.. No hydronephrosis or demonstrated mass. Normal vascular flow. LEFT KIDNEY: 9.8 cm in maximum dimension. Cortical thickness measures 1.0 cm. No hydronephrosis or stone. Normal vascular flow is demonstrated. Complex fluid collection adjacent to the lower pole measures 5.3 cm x 5.0 cm x 1.4 cm, favored to be a hematoma. BLADDER: Not demonstrated Right pleural effusion noted. IMPRESSION: 1. Echogenic fluid collection around the left lower pole kidney is favored to represent a small hematoma. Correlation with CT abdomen and/or MR may be helpful for further clarification, as clinically indicated. 2. Nonobstructive right renal lithiasis. END IMPRESSION Assessment/Plan Mr. Barron Mederos is a 38 y.o. male with HTN, CKD stage 5, and DMT1 presented from OSH for worsening renal failure. He is pending hemodialysis. #Renal failure (ARF), acute on CKD stage 5 #Diabetic nephropathy - Likely secondary to uncontrolled type 1 diabetes leading to nephropathy - Kidney biopsy (01/06/19) characteristic of diabetic nephropathy - Patient continues to have pain at the site of biopsy and flank pain - AVF placed on 01/19 has not yet matured for use - Nephrology on board; appreciate recs - Patient is refusing labs this AM - Pending perm cath and hemodialysis #DMType 1 - Lantus changed to 12 u nightly since patient having low blood glucose in the overnight - Medium dose sliding - Will monitor #Hypertensive emergency, resolved #Hyertention - SBP 150-160 and DBP 80-90 - Will continue IV labetalol 20mg PRN for SBP >160 - Continue Coreg 12.5mg BID, hydralazine 50mg BID #Acute hypoxic respiratory failure, Improving - Patient on 2 L oxygen this morning - Respiratory status is stable - Will monitor #Hyponatremia, improving - Pt refused labs this AM - Last Na was 125 #Anxiety #Depression - Currently not on any medications - Will continue to monitor DVT Prophylaxis: SCD's while in bed GI Prophylaxis: PPi Reason: History of GERD Functional Status: mildly impaired Code Status: DNR/DNI Disposition: Plan discharge to: Home Estimated Discharge Date: The patient was discussed with Lorenzo Gallardo MD who agrees with the assessment and plan as noted above. Signature: Sakina Broussard DO Date/Time: January 25, 2019 11:01 AM Associated attestation - Lorenzo Gallardo MD - 01/25/2019 1:34 PM ESTAttending Addendum- Lorenzo Gallardo MD I saw and evaluated the patient with the reisdent. Discussed with the resident and agree with the residents findings as documented in the resident's note. I independently reviewed the medications and all the orders. Radha Davis RN - 01/25/2019 5:19 AM ESTApprox 0330 AM, Pt awoken stated he was very hot and sweaty, requesting RN check his blood sugar. Ptnoted to be diaphoretic, tachycardic and hypertensive. Pt blood sugar noted to be 32. Dr. Villanueva notified. PRN D50 admin and PO juice encouraged. Shortly after Pt stated he was feeling better, blood sugar reassessed, Blood sugar noted to be & gt;200. Pt refusing AM blood work, Pt stated that the "nurses will not be able to get any blood" and "doesn't want to be poked a bunch of times". Dr. Villanueva notified of Pts complaints and requests. Pt c/o painin his lower back, Pt stated "kidney area" Pt medicated w/ PRN pain meds w/ good effect. Pt c/o nausea, emesis noted x1, Pt medicated w/ PRN reglan w/ good effect. Pt appears to be resting comfortably. 5: 28 AM Radha Gil RN - 01/24/2019 8:30 PM ESTPt refused evening blood work. Night float notified. Pt agreeable to AM labs. Joshua Aguilera DO - 2018 12:49 PM EST Internal Medicine Inpatient Progress Note Subjective Seen and examined at bedside. Easily aroused and in NAD. States he feels poorly due to getting gluten on his food tray. Also endorses frequency due to lasix, constipation and cough. Denies chest pain,sob, fever, chills, headache, vision or hearing change. Expresses that he will be unable to have any procedures near his neck without being sedated, which is why he refused the permacath insertion yesterday. Review of Systems Constitutional: Positive for fatigue. HENT: Negative. Eyes: Negative. Respiratory: Positive for cough. Cardiovascular: Negative. Gastrointestinal: Positive for constipation. Endocrine: Negative. Genitourinary: Positive for difficulty urinating. Musculoskeletal: Positive for myalgias. Skin: Negative. Neurological: Negative. Psychiatric/Behavioral: Negative. 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 He appears ill. No distress. Pale, appears older than stated age. NAD HENT: Head: Normocephalic and atraumatic. Right Ear: External ear normal. Left Ear: External ear normal. Eyes: Conjunctivae are normal. Right eye exhibits no discharge. Left eye exhibits no discharge. Neck: Normal range of motion. No neck rigidity. Cardiovascular: Normal rate, regular rhythm and normal pulses. Pulmonary/Chest: Effort normal. No respiratory distress. He has no wheezes. Abdominal: Soft. Bowel sounds are normal. He exhibits no distension. There is no tenderness. There is no guarding. Musculoskeletal: Normal range of motion. General: No deformity or signs of injury. Neurological: He is alert and oriented to person, place, and time. Skin: Skin is warm and dry. There is pallor. xerosis Psychiatric: His behavior is normal. Mood normal. Lines, Tubes, Monitors & Restraints Description Still Required? Comments PIV [x] Yes [] No Total Days of Anti-infective Therapy: 0 Laboratory Data (Most Recent in Past 3 Days) Lab 01/23/19 0054 01/24/19 0241 WBC 14.4* 8.8 HGB 9.1* 8.5* HCT 27.4* 25.6* MCV 85.3 84.8 PLT 517* 468* Lab 01/23/194 01/24/19 0241 NA 121* 125* K 4.4 3.9 CL 83* 86* BICARBONATE 21* 24 GLUCOSE 315* 232* BUN 57* 59* CREATININE 6.27* 6.85* Lab 01/23/19 0054 01/24/19 0241 CALCIUM 8.7 8.0* MG 2.2 -- PHOS 4.9* -- Lab 01/23/194 01/24/19 0241 NEUTOPHILPCT 89 72 LYMPHOPCT 6 15 MONOPCT 5 8 EOSPCT 0 4 Invalid input(s): BILDIR Xr Chest Frontal Only Result Date: 01/23/2019 PROCEDURE INFORMATION: Exam: XR Chest, 1 View Exam date and time: 01/23/2019 1: 01 AM Clinical history: 38 years old, male; Other: Evalaute for pulmonary edema TECHNIQUE: Imaging protocol: XR of the chest Views: 1 view. COMPARISON: OT CXR CHEST PA LAT 2 VWS 01/22/2019 5:30 PM FINDINGS: Lungs: Pulmonary edema. Small bilateral pleural effusion with adjacent atelectasis vs consolidation. Pleural space: SeeLungs Finding. No discernible pneumothorax. Heart/Mediastinum: Unremarkable. No cardiomegaly. Bones/joints: Unremarkable. IMPRESSION: 1. Pulmonary edema. 2. Small bilateral pleural effusion with adjacent atelectasis vs consolidation. Overall, no significant interval change in the appearance of lungs since prior study. THIS DOCUMENT HAS BEEN ELECTRONICALLY SIGNED BY GRACIE GARZA MD Us Renal Or Aorta Complete Result Date: 01/23/2019 INDICATION:38 years old Male with worsening kidney status, acute on chronic kidney disease, type 1 diabetes. History of hematoma after recent biopsy( a few weeks ago.) PROCEDURE: US RENAL OR AORTA COMPLETE 37513 COMPARISON: No prior. TECHNIQUE: Grayscale and color Doppler ultrasound of the abdomen. FINDINGS: RIGHT KIDNEY: 10.9 cm in maximum dimension. Cortical thickness measures 1.2 cm Multiple echogenic foci with twinkling artifact are demonstrated in the right kidney with the largest measuring 0.3 cm in the interpolar region, consistent with nonobstructive renal stones.. No hydronephrosis or demonstrated mass. Normal vascular flow. LEFT KIDNEY: 9.8 cm in maximum dimension. Cortical thickness measures 1.0 cm. No hydronephrosis or stone. Normal vascular flow is demonstrated. Complex fluid collection adjacent to the lower pole measures 5.3 cm x 5.0 cm x 1.4 cm, favored to be a hematoma. BLADDER: Not demonstrated Right pleural effusion noted. IMPRESSION: 1. Echogenic fluid collection around the left lower pole kidney is favored to represent a small hematoma. Correlation with CT abdomen and/or MR may be helpful for further clarification, as clinically indicated. 2. Nonobstructive right renal lithiasis. END IMPRESSION Assessment/Plan Mr. Barron Mederos is a 38 y.o. male who is here for # Acute on chronic renal failure, CKD V - likely due to poorly controlled T1DM leading to nephropathy - kidney bx (01/06/19- per [facility]) performed was complicated by left renal hematoma, showed "near total glomerulosclerosis, interstitial fibrosis and tubular atrophy associated with changes characteristic of diabetic nephropathy. - continues to have body pain particularly at site of bx - c/w analgesia with oxycodone 5 mg moderate pain and 10 mg for severe pain. No morphine due to renal function - K+ normal limit - JOSE, ANCA negative 01/03. Glomerular base AB IgG neg - nephrology consulted and recs appreciated - AVF placed 01/19 not ready for use and patient unable to have perma cath placed 01/23 due to anxiety. Neph is following and for now plan to continue with aggressive diuresis and HD 01/26 - PTH, Fe panel, Phos ordered # Hypertensive emergency, resolved - BP as high as 198/116 - given 20 mg IV labetalol at OSH with signs of end organ damage including new onset hypoxic respiratory failure - c/w IV labetalol PRN for goal systolic BP of <160 systolic - c/w telemetry - no more sob on examination - ordered repeat EKG upon arrival which appeared largely unchanged from EKG performed at OSH - troponin 0.04 on presentation, patient asymptomatic. Likely 2/2 HTN and renal dysfunction # Acute hypoxic respiratory failure - patient not on baseline oxygen - currently requiring 2L NC - will continue to monitor SpO2 and wean oxygen as able # Hyponatremia, improving - POA, likely due to hypervolemia - 121 on arrival, 125 01/24 - c/w aggressive diuresis per nephrology # DM1 uncontrolled - c/w diabetic diet - c/w lantus 16u (home dose 20) and LDSS - c/w FS AC HS - BG acceptable control this admission. Continue to monitor # Anxiety/depresssion - reports recent stressors in his life - not currently on any medications - will continue to monitor # Leukocytosis, resolved - POA - WBC at OSH was 15.5. Today 8.8 - will continue to monitor with cbc and clinically A/P adapted from previous note for improved continuity of care DVT Prophylaxis: SCD's while in bed GI Prophylaxis: PPi Reason: History of GERD Functional Status: mildly impaired Code Status: DNR/DNI Disposition: Plan discharge to: TBD Estimated Discharge Date: D The patient was discussed with Lorenzo Gallardo MD who agrees with the assessment and plan as noted above. Signature: Joshua Phillips DO Date/Time: January 24, 2019 12:49 PM Associated attestation - Lorenzo Gallardo MD - 01/24/2019 2:04 PM ESTAttending Addendum- Loernzo Gallardo MD I saw and evaluated the patient with the reisdent. Discussed with the resident and agree with the residents findings as documented in the resident's note. I independently reviewed the medications and all the orders. Silvestre Cabrera MD - 01/24/2019 11:48 AM EST Nephrology Inpatient Progress Note Length of stay: 1 days Active Problems: Renal failure (ARF), acute on chronic Subjective: Patient seen and reviewed at bedside. He is moaning and groaning and mentioned that the peanut butter he ate did not agree with him. Complaining of nausea and sickness. Denies chest pain, palpitations. SOB has interval improved. Review of Systems: Systemic review was incomplete as the patient was distressed and did not want to talk more. Allergies Allergen Reactions Fentanyl Other (See Comments) "Fentanyl made me very sick" Gluten Free-In Food Scheduled Meds: carvedilol 12.5 mg Oral BID docusate sodium 100 mg Oral BID hydrALAZINE 50 mg Oral BID insulin glargine 16 Units Subcutaneous Nightly insulin lispro 1-8 Units Subcutaneous 3 x Daily with Meals pantoprazole 40 mg Oral Daily [START ON 01/25/2019] polyethylene glycol 17 g Oral Daily senna 2 tablet Oral Nightly Continuous Infusions: PRN Meds:dextrose, glucagon (human recombinant), glucose, metoclopramide (REGLAN ) injection, oxyCODONE OR oxyCODONE Objective: Vital signs in last 24 hours: Temp: [36.4 C (97.5 F)-37.1 C (98.8 F)] 36.7 C (98.1 F) Pulse: [82-94] 84 Resp: [-24] 12 BP: (141-174)/(76-97) 143/76 SpO2: [98 %-100 %] 98 % O2 Therapy: Oxygen O2 Flow Rate (L/min): [2 L/min] 2 L/min Intake/Output last 3 shifts: I/O last 3 completed shifts: In: 1080 [P.O.:1080] Out: 2750 [Urine:2750] Intake/Output this shift: I/O this shift: In: 360 [P.O.:360] Out: 575 [Urine:575] Physical Exam: Visit Vitals BP 143/76 Pulse 84 Temp 36.7 C (98.1 F) (Oral) Resp 12 Ht 1.753 m (5' 9") Wt 61.1 kg (134 lb 11.2 oz) SpO2 98% BMI 19.89 kg/m Constitutional: Frail and apparently undernourished. Moaning due to abdominal discomfort. Oriented and having a coherent speech. Head: Normocephalic and atraumatic. Eyes: Pupils are equal, round. No conjunctival discharge. Neck: No JVD present. No visible neck mass. Cardiovascular: S1 S2 No Pericardial rubs. Pulmonary/Chest: Some basal rales. Good air entry on anterior examination. Musculoskeletal: No edema and no tenderness. Skin: Skin is warm and dry. No rash noted. No erythema. Psychiatric: Distressed and depressed mood and effect. Data Review Recent Labs Lab 01/23/195301/24/19 0241 NA 121* 125* K 4.4 3.9 CL 83* 86* BICARBONATE 21* 24 BUN 57* 59* CREATININE 6.27* 6.85* GLUCOSE 315* 232* CALCIUM 8.7 8.0* PHOS 4.9* -- Recent Labs Lab 01/23/195319 0241 HCT 27.4* 25.6* HGB 9.1* 8.5* MCH 28.2 28.1 MCHC 33.0 33.1 MCV 85.3 84.8 PLT 517* 468* RDW 13.7 14.0 WBC 14.4* 8.8 Assessment/Plan: Mr Mederos is a 38 yr old gentleman with a past medical history as in records including but not limited to Type 1 DM with end organ damage, CKD Stage V approaching ESRD who presented with pulmonary edema and volume overload in the settings of worsening nephropathy. He has responded very well to 120 mg of IV Lasix with a good diuretic response. Clearance remains poor and has worsened. 1. Renal - CKD stage V approaching ESRD. I.O - 1,080 / 2, 750 mls. Some of the patient's symptomsmight be of uremic nature. Though Dialysis may be acutely needed in case of resistant volume overload, uremic encephalopathy or worsening biochemistry, we will recommend another dose of IV lasix 120 mgstat today. Maintain strict I.Os. Unless acutely indicated, HD may be deferred until Saturday. He willneed vascular access ideally a Permacath first thing next week. 2. Electrolytes - Hypervolemic Hyponatremia with normokalemia. Please administer another dose of IVLasix 120 mg stat. 3. Acid/Base Status - Normal bicarb. 4. Mineral and Bone - Check Phos and PTH please. 5. Volume Status - Slightly hypervolemic. 6. Hematologic - 8.5/25.6 - Check Iron Profile , PTH and TSH. 7. Dietary Recommendations - None for now till Phos level is available. 8. Medications - Please dose all medication for an estimated GFR less than 10. 9. Blood Pressure - Ranging between 140 - 170s systolic with diastolic in 70- 90s. No acute concerns Case discussed with Dr. Denisse GREEN Fellow-Division of Nephrology, [facility] Associated attestation - Marshal Salcedo MD - 01/24/2019 5:08 PM ESTPlease see resident notes for details. I have interviewed and examined the patient and confirmed thehistory, examination, assessment and plan as noted in the resident note. I have not edited the resident note. Labs obtained/reviewed. Victor Manuel Lima RN - 01/23/2019 6:58 PM ESTDiscussed BP of 174/97 with Night Float MD. Stated that since Pt is currently receiving dose of Lasix, to reassess BP in one hour and give evening blood pressure meds as scheduled tonight. Pt currentlyasymptomatic. Will pass along to health information director RN. Nidia Worthy RN - 01/23/2019 12:16 PM ESTCase Management Screen & Assessment Patient's Name: Barron Mederos Date of : 1980 Age: 38 y.o. Gender: male Attending Provider: Lorenzo Gallardo MD Admitting Diagnosis: Renal failure (ARF), acute on chronic [N17.9, N18.9] Acute renal failure Admission Date and Time: 01/23/2019 12:24 AM High Risk Criteria - CONCRETE CARPENTER/Upon Arrival CONCRETE CARPENTER-Type of Residence: Private residence [employer]CRETE [employer]PENTER- Home Care Services: No Limited Home Supports/Lives Alone?: Yes Multi trauma/Critical care admit?: No Head/Spinal cord injury?: No Self pay/No prescription plan?: No Active with homecare?: No Multiple ED visits?: Yes Related/Unplanned readmission within 30 days?: Yes Complex/New medical issues: acute on chronic renal failure, HTN, hyponatremia Relevant comorbidities: diabetes, retinopathy, nephropathy, anxiety/depression CM Screen Outcome Senior Maintenance Technician Screen Outcome: Meets high risk criteria for active foster care case manager intervention Patient/Agent informed of choice and given written list?: Patient/agent declined list Important message (Medicare rights) given?: (N/A) CM Chart Review Notice of Privacy Practice Signed?: Yes Self Pay: No Prescription Plan?: Yes (comment) CONCRETE CARPENTER: Functional/Environmental Assessment Came from Rehab/SNF, plan to return?: No Brief physical/psychosocial summary: pt lives at home alone Bathing: Independent Dressing: Independent Toileting: Independent Medication administration: Independent Transfers: Independent Ambulation: Independent Meal preparation: Independent Number of stairs into home: 16 Number of stairs to bathroom: 0 Number of stairs to bedroom: 0 Durable Medical Equipment (DME): Glucometer Discharge Assessment Referred to Coordinator for: benefit check Patient/family informed of need for discharge planning?: Yes Patient/Agent informed of choice and given written list?: Patient/agent declined list Living Arrangements: Alone Type of Residence: Private residence Note: This manual writer met with pt at bedside, CM role explained. Pt lives at home alone and independentPTA. Pt admitted with renal failure, anticipate need for HD chair. Benefit check requested. CM willcontinue to follow. Nidia Jamesectronically signed by Nidia James RN at 01/23/2019 12: 17 PM Joshua Aguilera DO - 01/23/2019 11:29 AM ESTNephrology consulted by admitting team. Per their recommendation administered Lasix 120 mg IV, renalultrasound for flank pain ordered. Patient made NPO in preparation for permcath placement necessary for HD later today or tomorrow as patient's AVF was recently placed on 01/19. See H&P by Dr Jones for complete HPI Joshua Phillips DO Bridget Villarreal - 01/23/2019 11:20 AM EST Nephrology Consult Note Reason for Consultation: Worsening renal failure Requested By: Lorenzo Gallardo MD Admission Date: 01/23/2019 Subjective: History of present illness: Barron Mederos is a 38 y.o. male with a PMH of T1DM complicated by retinopathy and nephropathy and recently diagnosed with advanced CKD who presented to OSH with decreased appetite, severe kidney pain, and difficulty breathing. CXR at OSH showed pulmonary edema with small bilateral pleural effusions.At OSH he was hypertensive and and received 20 mg IV labetalol and 100 mg IV lasix. Prior to transfer, patient voided 850cc of urine. Patient had a AVF placed in [place] on 01/19/2019. On 01/06/2019 patient had kidney biopsy which showed "near total glomerulosclerosis, interstitial fibrosis and tubular atrophy associated with changes characteristic of diabetic nephropathy." Biopsy was complicated by a renal hematoma and patient continues to have pain at biopsy site. CXR on presentation to [facility] showed pulmonary edema. Hypertension present on admission but is now under control. Patient remains on 2L of oxygen. Patient has voided 1000cc of urine since admission. Review of Systems Constitutional: Positive for lack of appetite. Negative for diaphoresis. HENT: Negative for rhinorrhea, sore throat, or tinnitus. Eyes: Negative for photophobia, pain, or visual changes Respiratory: Positive for shortness of breath. Negative for cough or chest tightness. Cardiovascular: Negative for chest pain or palpitations. Gastrointestinal: Positive for nausea. Negative for abdominal pain. Genitourinary: Positive for difficulty urinating and flank pain. Negative for dysuria or hematuria. Musculoskeletal: Positive for back pain, neck, or joint pain. Neurological: Negative for headaches or dizziness. Skin: Negative for rash, swelling, or itching. Psychiatry: Positive for anxiety. Patient Active Problem List Diagnosis Date Noted Renal failure (ARF), acute on chronic 01/23/2019 PMH: T1DM, CKD stage IV/V, Anxiety/depression PSH: Renal biopsy, AVF creation (01/19/2019) Allergies Allergen Reactions Fentanyl Other (See Comments) "Fentanyl made me very sick" Gluten Free-In Food No medications prior to admission. Current Facility-Administered Medications Medication Dose Route Frequency Provider Last Rate Last Dose carvedilol (COREG) tablet 12.5 mg 12.5 mg Oral BID Zakia Jones MD 12.5 mg at 01/23/19 09 dextrose 50 % IV solution 25 mL 25 mL Intravenous PRN Zakia Jones MD glucagon (human recombinant) (GLUCAGEN) injection 1 mg 1 mg Intramuscular PRN Zakia Jones MD glucose (GLUTOSE) 40 % oral gel 15 g 15 g Oral PRN Zakia Jones MD hydrALAZINE (APRESOLINE) tablet 50 mg 50 mg Oral BID Zakia Jones MD 50 mg at 01/23/19 09 insulin glargine (LANTUS) injection 16 Units 16 Units Subcutaneous Nightly Zakia Jones MD 16 Units at 01/23/19 0126 insulin lispro (HumaLOG) injection LOW DOSE EATING INSULIN patients 1-8 Units 1-8 Units Subcutaneous 3 x Daily with Meals Zakia Jones MD 1 Units at 01/23/19 09 oxyCODONE (ROXICODONE) immediate release tablet 5 mg 5 mg Oral Q4H PRN Zakia Jones MD Or oxyCODONE (ROXICODONE) immediate release tablet 10 mg 10 mg Oral Q4H PRN Zakia Jones MD 10 mg at 01/23/19 0749 pantoprazole (PROTONIX) EC tablet 40 mg 40 mg Oral Daily Zakia Jones MD 40 mg at 01/23/19 0902 senna 8.6 MG 2 tablet 2 tablet Oral Nightly Zakia Jones MD FH: Maternal aunts with multiple [place]. Negative for ESRD or dialysis. Social History Tobacco Use Smoking status: Not on file Substance Use Topics Alcohol use: Not on file Objective: Vital signs in last 24 hours: Temp: [36.6 C-36.9 C] 36.9 C Pulse: [86-108] 90 Resp: [4-37] 18 BP: (140-197)/(76-100) 140/78 SpO2: [95 %-100 %] 97 % O2 Therapy: Oxygen O2 Flow Rate (L/min): [2 L/min] 2 L/min Intake/Output last 3 shifts:I/O last 3 completed shifts: In: - Out: 600 [Urine:600] Intake/Output this shift:I/O this shift: In: 240 [P.O.:240] Out: 400 [Urine:400] Physical Exam Visit Vitals BP 140/78 Pulse 90 Temp 36.9 C (Oral) Resp 18 Ht 1.753 m Wt 61.1 kg (134 lb 11.2 oz) SpO2 97% BMI 19.89 kg/m Constitutional: Thin, frail man who appears older than stated age. Appears to be in mild distress. Head: Normocephalic and atraumatic. Eyes: Pupils are equal, round, and reactive to light. Neck: No JVD present. No thyromegaly present. Cardiovascular: Normal rate, regular rhythm and normal heart sounds. Pulmonary/Chest: Decreased lung sounds in bilateral lower lung hassan. Pain on deep inspiration. No wheezes, rales, or rhonchi. Abdomen: Soft, bowel sounds are normal, no distension, masses or tenderness. No rebound and no guarding. Musculoskeletal: No edema and no tenderness. Lymphadenopathy: No cervical adenopathy. Skin: Skin is warm and dry. No rash noted. No erythema. Neurological: AAA x 3 Psychiatric: Anxious. Easily frustrated and aggravated by questions and examination. Data Reviewed Recent Labs Lab 01/23/19 0054 NA 121* K 4.4 CL 83* BICARBONATE 21* BUN 57* CREATININE 6.27* GLUCOSE 315* CALCIUM 8.7 PHOS 4.9* Recent Labs Lab 01/23/19 0054 HCT 27.4* HGB 9.1* MCH 28.2 MCHC 33.0 MCV 85.3 PLT 517* RDW 13.7 WBC 14.4* Assessment: Mr. 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 Plan: 1. Renal - Patient has worsening renal function in the setting of known CKD with Cr 6.27, BUN 57 and GFR 12. Patient appears volume overloaded with pulmonary edema in the setting of decreased renal function. Recommend 120 mg IV Lasix to decrease volume status. Recommend Renal US to evaluate persistent flank pain following renal biopsy over 2 weeks ago with known hematoma complication. 2. Electrolytes - Patient is hyponatremic with a corrected sodium in the setting of hyperglycemia of approximately 124. Patient has hypochloremia with Cl of 83. Hypophosphatemic with phos 4.9. Patientrequires dialysis due to decline of renal function. AVF placed on Saturday is not mature yet for function. Recommend placement of perm cath in order to dialyze patient acutely. 3. Acid/Base Status - Patient has metabolic acidosis with bicarbonate 21 and anion gap 17. Likely secondary to decline in renal function, will modulate with dialysis. 4. Mineral and Bone - Ca 8.7, Phos increased at 4.9. Likely secondary to decline in renal function. 5. Volume Status - Patient remains volume overloaded with pulmonary edema and bilateral pleural effusions. 120 mg of IV lasix acutely while access is established for dialysis. 6. Hematologic - H/H 9.04/13.4, thrombocytosis and leukocytosis - evaluate for possible infection perprimary team 7. Dietary Recommendations - NPO status until obtain perm cath, then diet per primary team 8. Medications - Please dose all medication as needed for dialysis Case discussed with Dr. Scott. Bridget Morris, MS3 Associated attestation - Fernando Scott MD - 01/23/2019 12:26 PM TALIA personally performed or re-performed the history, physical exam and medical decision making. I discussed the case with the medical student and have verified the medical student documentation. In addition I would like to add pt with now approaching ESRD status and recently placed AVF will likely require a few weeks before fistula will be mature enough to be accessed, pt with pulmonary edemaand volume overload, will initiate HD via perm HD catheter and later transition to AVF once access is mature enough to be used. Hyponatremia likely in the setting of volume overload, will dialyze with lower sodium bath 130 to avoid rapid correction of sodium. Renal osteodystrophy and Hyperphosphatemia, will start him on phos binders once patient nutrition isbetter. Recommend checking PTH. S. Aishwarya Scott MD Division of Nephrology [facility] Essence Dixon RN - 01/23/2019 1:36 AM [id number] Patient arrived with EMS from [facility], admitted to . He is A&Ox3, S.Tach on tele, B/P is 197/ 100. Oriented to room and call light. MAR at bedside to evaluate. 0200 patient non-cooperative with admission screening questions, he became irritable every time a question was asked. Pt was allowed to rest at this time If wound was present on admission, this documentation was sent to attending provider for cosignature. documented in this encounter Plan of Treatment Name Type Priority Associated Diagnoses Date/Time EKG 12 Lead ECG Routine 01/23/2019 12:43 AM EST Name Type Priority Associated Diagnoses Order Schedule POCT glucose, Point of Care Routine 4X Daily (AC & HS) docked Testing-Docked for 30 Days starting Device 01/23/2019 until 02/21/2019, 17 completed IR Vascular Access Imaging Routine ESRD (end stage One Time Imaging Insertion or renal disease) Routine for 1 Removal Occurrences starting 01/23/2019 until 01/23/2019 Basic Metabolic Lab Routine AM Draw for 5 Panel Occurrences starting 01/25/2019 until 01/29/2019, 1 completed documented as of this encounter Procedures Procedure Name Priority Date/Time Associated Comments Diagnosis POCT GLUCOSE, DOCKED Routine 01/27/2019 12:05 Results for this PM EST procedure are in the results section. POCT GLUCOSE, DOCKED Routine 01/27/2019 8:13 Results for this AM EST procedure are in the results section. BASIC METABOLIC PANEL Routine 01/27/2019 3:06 Results for this AM EST procedure are in the results section. POCT GLUCOSE, DOCKED Routine 01/26/2019 8:37 Results for this PM EST procedure are in the results section. POCT GLUCOSE, DOCKED Routine 01/26/2019 5:05 Results for this PM EST procedure are in the results section. POCT GLUCOSE, DOCKED Routine 01/26/2019 11:49 Results for this AM EST procedure are in the results section. POCT GLUCOSE, DOCKED Routine 01/26/2019 7:40 Results for this AM EST procedure are in the results section. POCT GLUCOSE, DOCKED Routine 01/25/2019 11:11 Results for this PM EST procedure are in the results section. POCT GLUCOSE, DOCKED Routine 01/25/2019 9:03 Results for this PM EST procedure are in the results section. POCT GLUCOSE, DOCKED Routine 01/25/2019 5:00 Results for this PM EST procedure are in the results section. TOTAL FE BINDING Routine 01/25/2019 1:42 Results for this CAPACITY PM EST procedure are in the results section. CBC AND DIFFERENTIAL Routine 01/25/2019 1:42 Results for this PM EST procedure are in the results section. TSH Routine 01/25/2019 1:42 Results for this PM EST procedure are in the results section. PHOSPHORUS LEVEL Routine 01/25/2019 1:42 Results for this PM EST procedure are in the results section. PTH, INTACT Routine 01/25/2019 1:42 Results for this PM EST procedure are in the results section. MAGNESIUM LEVEL Routine 01/25/2019 1:42 Results for this PM EST procedure are in the results section. FERRITIN LEVEL Routine 01/25/2019 1:42 Results for this PM EST procedure are in the results section. BASIC METABOLIC PANEL Routine 01/25/2019 1:42 Results for this PM EST procedure are in the results section. POCT GLUCOSE, DOCKED Routine 01/25/2019 12:10 Results for this PM EST procedure are in the results section. POCT GLUCOSE, DOCKED Routine 01/25/2019 8:16 Results for this AM EST procedure are in the results section. POCT GLUCOSE, DOCKED Routine 01/25/2019 4:18 Results for this AM EST procedure are in the results section. POCT GLUCOSE, DOCKED Routine 01/25/2019 3:40 Results for this AM EST procedure are in the results section. POCT GLUCOSE, DOCKED Routine 01/24/2019 8:23 Results for this PM EST procedure are in the results section. POCT GLUCOSE, DOCKED Routine 01/24/2019 5:07 Results for this PM EST procedure are in the results section. POCT GLUCOSE, DOCKED Routine 01/24/2019 1:17 Results for this PM EST procedure are in the results section. POCT GLUCOSE, DOCKED Routine 01/24/2019 8:24 Results for this AM EST procedure are in the results section. POCT GLUCOSE, DOCKED Routine 01/24/2019 2:49 Results for this AM EST procedure are in the results section. CBC AND DIFFERENTIAL Routine 01/24/2019 2:41 Results for this AM EST procedure are in the results section. BASIC METABOLIC PANEL Routine 01/24/2019 2:41 Results for this AM EST procedure are in the results section. POCT GLUCOSE, DOCKED Routine 01/23/2019 8:57 Results for this PM EST procedure are in the results section. POCT GLUCOSE, DOCKED Routine 01/23/2019 4:55 Results for this PM EST procedure are in the results section. POCT GLUCOSE, DOCKED Routine 01/23/2019 12:41 Results for this PM EST procedure are in the results section. US RENAL OR AORTA Urgent 01/23/2019 12:37 Results for this COMPLETE 33732 PM EST procedure are in the results section. POCT GLUCOSE, DOCKED Routine 01/23/2019 7:37 Results for this AM EST procedure are in the results section. XR CHEST FRONTAL ONLY STAT 01/23/2019 12:54 Results for this 73915 AM EST procedure are in the results section. CBC AND DIFFERENTIAL STAT 01/23/2019 12:54 Results for this AM EST procedure are in the results section. TROPONIN T STAT 01/23/2019 12:54 Results for this AM EST procedure are in the results section. PHOSPHORUS LEVEL Routine 01/23/2019 12:54 Results for this AM EST procedure are in the results section. MAGNESIUM LEVEL Routine 01/23/2019 12:54 Results for this AM EST procedure are in the results section. BASIC METABOLIC PANEL STAT 01/23/2019 12:54 Results for this AM EST procedure are in the results section. EKG 12-LEAD - CMAXX 01/23/2019 12:43 REPORT AM EST EKG 12-LEAD - CMAXX 01/23/2019 12:43 REPORT AM EST EKG 12-LEAD Routine 01/23/2019 12:43 Results for this AM EST procedure are in the results section. POCT GLUCOSE, DOCKED Routine 01/23/2019 12:29 Results for this AM EST procedure are in the results section. documented in this encounter Results POCT glucose, docked (01/27/2019 12:05 PM EST) POC Glucose 191 (H) 70 - 140 mg/dL [facility] POC Specimen Whole Blood Performing Organization Address [facility] Phone Number POINT OF CARE TEST [address] [place], [place] [id number] [place] [address] POC [address] [place] [address] POCT glucose, docked (01/27/2019 8:13 AM EST) POC Glucose 312 (H) 70 - 140 mg/dL [facility] POC Specimen Whole Blood Performing Organization Address [facility] Number POINT OF CARE TEST [address] [place], [place] [id number] [place] [address] POC [address] [place] [address] Basic Metabolic Panel (01/27/2019 3:06 AM EST) Bicarbonate 26 22 - 29 mmol/L [facility] Chloride 84 (L) 98 - 107 mmol/L [facility] Creatinine 6.95 (H) 0.70 - 1.20 [facility] mg/dL [facility] Glucose 252 (H) 70 - 140 mg/dL [facility] Potassium 3.8 3.4 - 5.1 [facility] mmol/L [facility] Sodium 124 (L) 136 - 145 [facility] mmol/L [facility] Blood Urea Nitrogen 56 (H) 6 - 20 mg/dL [facility] Anion Gap 14 8 - 15 mmol/L [facility] Osmolality, Grey 282 275 - 300 [facility] mosm/kg [facility] BUN/Cre Ratio 8 [facility] Calcium 8.2 (L) 8.6 - 10.0 [facility] mg/dL [facility] GFR Non 9 (L) >60 [facility] Niuean 2008 CDK-EPI mL/min/1.73m2 [facility] GFR 11 (L) >60 [facility] 2008 CKD-EPI mL/min/1.73m2 [facility] Specimen Plasma Performing Organization Address [facility] Phone Number [facility] [address] [place] [address] [facility] [address] [place] [address] Pathology POCT glucose, docked (01/26/2019 8:37 PM EST) POC Glucose 239 (H) 70 - 140 mg/dL [facility] POC Specimen Whole Blood Performing Organization Address [facility] Phone Number POINT OF CARE TEST [address] [place], [place] [id number] [place] [address] POC [address] [place] [address] POCT glucose, docked (01/26/2019 5:05 PM EST) POC Glucose 182 (H) 70 - 140 mg/dL [facility] POC Specimen Whole Blood Performing Organization Address [facility] Phone Number POINT OF CARE TEST [address] [place], [place] [id number] [place] [address] POC [address] [place] [address] POCT glucose, docked (01/26/2019 11:49 AM EST) POC Glucose 209 (H) 70 - 140 mg/dL [facility] POC Specimen Whole Blood Performing Organization Address [facility] Phone Number POINT OF CARE TEST [address] [place], [place] [id number] [place] [address] POC [address] [place] [address] POCT glucose, docked (01/26/2019 7:40 AM EST) POC Glucose 197 (H) 70 - 140 mg/dL [facility] POC Specimen Whole Blood Performing Organization Address [facility] Phone Number POINT OF CARE TEST [address] [place] [address] [facility] POC [address] [place] [address] POCT glucose, docked (01/25/2019 11:11 PM EST) POC Glucose 182 (H) 70 - 140 mg/dL [facility] POC Specimen Whole Blood Performing Organization Address [facility] Phone Number POINT OF CARE TEST [address] [place] [address] [facility] POC [address] [place] [address] POCT glucose, docked (01/25/2019 9:03 PM EST) POC Glucose 167 (H) 70 - 140 mg/dL [facility] POC Specimen Whole Blood Performing Organization Address [facility] Phone Number POINT OF CARE TEST [address] [place] [address] [facility] POC [address] [place] [address] POCT glucose, docked (01/25/2019 5:00 PM EST) POC Glucose 236 (H) 70 - 140 mg/dL [facility] POC Specimen Whole Blood Performing Organization Address [facility] Phone Number POINT OF CARE TEST [address] [place] [address] [facility] POC [address] [place] [address] Magnesium Level (01/25/2019 1:42 PM EST) Magnesium 2.2 1.6 - 2.6 mg/dL [facility] Specimen Plasma Performing Organization Address [facility] Phone Number [facility] [address] [place] [address] [facility] [address] [place] [address] Pathology PTH, intact (01/25/2019 1:42 PM EST) PTH Intact 96 (H) 15 - 65 pg/mL [facility] Specimen Plasma Performing Organization Address [facility] Phone Number [facility] [address] [place] [address] [phone] [facility] [address] [place] [address] Pathology TSH (01/25/2019 1:42 PM EST) TSH 0.302 0.270 - 4.200 u[IU]/mL [facility] Specimen Plasma Performing Organization Address [facility] Phone Number [facility] [address] [place] [address] [facility] [address] [place] [address] Pathology Iron and TIBC (01/25/2019 1:42 PM EST) Iron 22 (L) 59 - 158 ug/dl [facility] Transferrin Serum 180 (L) 200 - 360 mg/dL [facility] Total Fe Bind Cap 250 228 - 428 ug/dl [facility] % Fe Saturation 8.8 (L) 20 - 55 % [facility] Specimen Plasma Performing Organization Address [facility] Phone Number [facility] [address] [place] [address] [facility] [address] [place] [address] Pathology Phosphorus Level (01/25/2019 1:42 PM EST) Phosphorus 5.6 (H) 2.5 - 4.5 mg/dL [facility] Specimen Plasma Performing Organization Address [facility] Phone Number [facility] [address] [place] [address] [facility] [address] [place] [address] Pathology Ferritin Level (01/25/2019 1:42 PM EST) Ferritin 76 30 - 400 ng/ml [facility] Specimen Plasma Performing Organization Address [facility] Phone Number [facility] [address] [place] [address] [phone] [facility] [address] [place] [address] Pathology CBC and Differential (01/25/2019 1:42 PM EST) White Blood Cell 8.4 4 - 10 [facility] 10*3/uL [facility] Red Blood Cell 3.67 (L) 4.6 - 6.1 [facility] 10*6/uL [facility] Hemoglobin 10.3 (L) 13.5 - 18 [facility] g/dL [facility] Hematocrit 31.2 (L) 41 - 53 % [facility] Mean Cell Volume 85.0 80 - 96 fL [facility] Mean Cell Hemoglobin 27.9 27 - 33 pg [facility] Mean Cell Hgb Conc 32.9 32.0 - 36.0 [facility] g/dL [facility] Red Cell Dist Width 13.9 11.5 - 14.5 % [facility] Platelet Count 512 (H) 150 - 400 [facility] 10*3/uL [facility] Differential Type Automated Diff [facility] Neutrophil 81 % [facility] Lymphocyte 9 % [facility] Monocyte 5 % [facility] Eosinophil 4 % [facility] Basophil 1 % [facility] Abs Neutrophil 6.87 1.8 - 7.0 [facility] 10*3/uL [facility] Abs Lymphocyte 0.76 (L) 1.2 - 4.0 [facility] 10*3/uL [facility] Abs Monocyte 0.40 0 - 0.8 [facility] 10*3/uL [facility] Abs Eosinophil 0.34 0 - 0.5 [facility] 10*3/uL [facility] Abs Basophil 0.04 0 - 0.2 [facility] 10*3/uL [facility] Nucleated Red Blood 0 0 - 0 [facility] Cells /100{WBCs} [facility] Specimen EDTA Whole Blood Performing Organization Address City/State/Zipcode Phone Number [facility] [address] [place] [address] [facility] [address] [place] [address] Pathology Basic Metabolic Panel (01/25/2019 1:42 PM EST) Bicarbonate 26 22 - 29 mmol/L [facility] Chloride 85 (L) 98 - 107 mmol/L [facility] Creatinine 6.72 (H) 0.70 - 1.20 [facility] mg/dL [facility] Glucose 130 70 - 140 mg/dL [facility] Potassium 3.6 3.4 - 5.1 [facility] mmol/L [facility] Sodium 124 (L) 136 - 145 [facility] mmol/L [facility] Blood Urea Nitrogen 54 (H) 6 - 20 mg/dL [facility] Anion Gap 13 8 - 15 mmol/L [facility] Osmolality, Grey 275 275 - 300 [facility] mosm/kg [facility] BUN/Cre Ratio 8 [facility] Calcium 8.5 (L) 8.6 - 10.0 [facility] mg/dL [facility] GFR Non 9 (L) >60 [facility] Ni[place]an 2009 CDK-EPI mL/min/1.73m2 [facility] GFR 11 (L) >60 [facility] 2008 CKD-EPI mL/min/1.73m2 [facility] Specimen Plasma Performing Organization Address [facility] Phone Number [facility] [address] [place] [address] [facility] [address] [place] [address] Pathology POCT glucose, docked (01/25/2019 12:10 PM EST) POC Glucose 108 70 - 140 mg/dL [facility] POC Specimen Whole Blood Performing Organization Address [facility] Number POINT OF CARE TEST [address] [place], [place] [id number] [place] [address] POC [address] [place] [address] POCT glucose, docked (01/25/2019 8:16 AM EST) POC Glucose 122 70 - 140 mg/dL [facility] POC Specimen Whole Blood Performing Organization Address [facility] Number POINT OF CARE TEST [address] POC [address] [place] [address] POCT glucose, docked (01/25/2019 4:18 AM EST) POC Glucose 206 (H) 70 - 140 mg/dL [facility] POC Specimen Whole Blood Performing Organization Address [facility] Number POINT OF CARE TEST [address] [place], [place] [address] [place] [address] POC [address] [place] [address] POCT glucose, docked (01/25/2019 3:40 AM EST) POC Glucose 32 (LL) 70 - 140 mg/dL [facility] POC Specimen Whole Blood Performing Organization Address [facility] Number POINT OF CARE TEST [address] [place], [place] [id number] [place] [address] POC [address] [place] [address] POCT glucose, docked (01/24/2019 8:23 PM EST) POC Glucose 151 (H) 70 - 140 mg/dL [facility] POC Specimen Whole Blood Performing Organization Address [facility] Number POINT OF CARE TEST [address] [place], [place] [id number] [place] [address] POC [address] [place] [address] POCT glucose, docked (01/24/2019 5:07 PM EST) POC Glucose 153 (H) 70 - 140 mg/dL [facility] POC Specimen Whole Blood Performing Organization Address [facility] Number POINT OF CARE TEST [address] [place], [place] [id number] [place] [address] POC [address] [place] [address] POCT glucose, docked (01/24/2019 1:17 PM EST) POC Glucose 252 (H) 70 - 140 mg/dL [facility] POC Specimen Whole Blood Performing Organization Address [facility] POINT OF CARE TEST [address] [place], [place] [id number] [place] [address] Hospital POC [address] [place] [address] POCT glucose, docked (01/24/2019 8:24 AM EST) POC Glucose 106 70 - 140 mg/dL [facility] POC Specimen Whole Blood Performing Organization Address [facility] POINT OF CARE TEST [address] [place], [place] [id number] [place] [address] POC [address] [place] [address] POCT glucose, docked (01/24/2019 2:49 AM EST) POC Glucose 228 (H) 70 - 140 mg/dL [facility] POC Specimen Whole Blood Performing Organization Address [facility] Number POINT OF CARE TEST [address] [place] [address] [facility] POC [address] [place] [address] CBC and Differential (01/24/2019 2:41 AM EST) White Blood Cell 8.8 4 - 10 [facility] 10*3/uL [facility] Red Blood Cell 3.02 (L) 4.6 - 6.1 [facility] 10*6/uL [facility] Hemoglobin 8.5 (L) 13.5 - 18 [facility] g/dL [facility] Hematocrit 25.6 (L) 41 - 53 % [facility] Pathology Mean Cell Volume 84.8 80 - 96 fL [facility] Path[facility] Mean Cell Hemoglobin 28.1 27 - 33 pg [facility] Mean Cell Hgb Conc 33.1 32.0 - 36.0 [facility] g/dL [facility] Red Cell Dist Width 14.0 11.5 - 14.5 % [facility] Pathology Platelet Count 468 (H) 150 - 400 [facility] 10*3/uL [facility] Differential Type Automated Diff [facility] Neutrophil 72 % [facility] Lymphocyte 15 % [facility] Monocyte 8 % [facility] Eosinophil 4 % [facility] Basophil 1 % [facility] Abs Neutrophil 6.34 1.8 - 7.0 [facility] 10*3/uL [facility] Abs Lymphocyte 1.32 1.2 - 4.0 [facility] 10*3/uL [facility] Abs Monocyte 0.71 0 - 0.8 [facility] 10*3/uL [facility] Abs Eosinophil 0.34 0 - 0.5 [facility] 10*3/uL [facility] Abs Basophil 0.10 0 - 0.2 [facility] 10*3/uL [facility] Nucleated Red Blood 0 0 - 0 [facility] Cells /100{WBCs} [facility] Pathology Specimen EDTA Whole Blood Performing Organization Address City/State/Zipcond Phone Number [facility] [address] [place] [address] [phone] [facility] [address] [place] [address] Pathology Basic Metabolic Panel (01/24/2019 2:41 AM EST) Bicarbonate 24 22 - 29 mmol/L [facility] Chloride 86 (L) 98 - 107 mmol/L [facility] Creatinine 6.85 (H) 0.70 - 1.20 [facility] mg/dL [facility] Glucose 232 (H) 70 - 140 mg/dL [facility] Potassium 3.9 3.4 - 5.1 [facility] mmol/L [facility] Sodium 125 (L) 136 - 145 [facility] mmol/L [facility] Blood Urea Nitrogen 59 (H) 6 - 20 mg/dL [facility] Anion Gap 15 8 - 15 mmol/L [facility]ology Osmolality, Grey 284 275 - 300 [facility] mosm/kg [facility] BUN/Cre Ratio 9 [facility] Calcium 8.0 (L) 8.6 - 10.0 [facility] mg/dL [facility] GFR Non 9 (L) >60 [facility] Niuean 2008 CDK-EPI mL/min/1.73m2 [facility] GFR 11 (L) >60 [facility] 2008 CKD-EPI mL/min/1.73m2 [facility] Pathology Specimen Plasma Performing Organization Address City[facility] Phone Number [facility] [address] [place] [address] [facility] [address] [place] [address] Pathology POCT glucose, docked (01/23/2019 8:57 PM EST) POC Glucose 241 (H) 70 - 140 mg/dL [facility] POC Specimen Whole Blood Performing Organization Address [facility] Phone Number POINT OF CARE TEST [address] [place], [place] [id number] [place] [address] POC [address] [place] [address] POCT glucose, docked (01/23/2019 4:55 PM EST) POC Glucose 116 70 - 140 mg/dL [facility] POC Specimen Whole Blood Performing Organization Address [facility] Phone Number POINT OF CARE TEST [address] [place], [place] [id number] [place] [address] POC [address] [place] [address] POCT glucose, docked (01/23/2019 12:41 PM EST) POC Glucose 88 70 - 140 mg/dL [facility] POC Specimen Whole Blood Performing Organization Address [facility] Phone Number POINT OF CARE TEST [address] [place] [address] [facility] POC [address] [place] [address] US Renal or Aorta Complete (01/23/2019 12:37 PM EST) Specimen Impressions Performed At IMPRESSION: [facility] 1. Echogenic fluid collection around the left lower pole kidney is favored to represent a small hematoma. Correlation with CT abdomen and/or MR may be helpful for further clarification, as clinically indicated. 2. Nonobstructive right renal lithiasis. END IMPRESSION Narrative Performed At INDICATION:38 years old Male with [facility] worsening kidney status, acute on chronic kidney disease, type 1 diabetes. History of hematoma after recent biopsy( a few weeks ago.) PROCEDURE: US RENAL OR AORTA COMPLETE [address] COMPARISON: No prior. TECHNIQUE: Grayscale and color Doppler ultrasound of the abdomen. FINDINGS: RIGHT KIDNEY: 10.9 cm in maximum dimension. Cortical thickness measures 1.2 cm Multiple echogenic foci with twinkling artifact are demonstrated in the right kidney with the largest measuring 0.3 cm in the interpolar region, consistent with nonobstructive renal stones.. No hydronephrosis or demonstrated mass. Normal vascular flow. LEFT KIDNEY: 9.8 cm in maximum dimension. Cortical thickness measures 1.0 cm. No hydronephrosis or stone. Normal vascular flow is demonstrated. Complex fluid collection adjacent to the lower pole measures 5.3 cm x 5.0 cm x 1.4 cm, favored to be a hematoma. BLADDER: Not demonstrated Right pleural effusion noted. Procedure Note Interface, Received Via [employer] - 01/23/2019 4:10 PM EST INDICATION:38 years old Male with worsening kidney status, acute on chronic kidney disease, type 1 diabetes. History of hematoma after recent biopsy( a few weeks ago.) PROCEDURE: US RENAL OR AORTA COMPLETE 71247 COMPARISON: No prior. TECHNIQUE: Grayscale and color Doppler ultrasound of the abdomen. FINDINGS: RIGHT KIDNEY: 10.9 cm in maximum dimension. Cortical thickness measures 1.2 cm Multiple echogenic foci with twinkling artifact are demonstrated in the right kidney with the largest measuring 0.3 cm in the interpolar region, consistent with nonobstructive renal stones.. No hydronephrosis or demonstrated mass. Normal vascular flow. LEFT KIDNEY: 9.8 cm in maximum dimension. Cortical thickness measures 1.0 cm. No hydronephrosis or stone. Normal vascular flow is demonstrated. Complex fluid collection adjacent to the lower pole measures 5.3 cm x 5.0 cm x 1.4 cm, favored to be a hematoma. BLADDER: Not demonstrated Right pleural effusion noted. IMPRESSION: 1. Echogenic fluid collection around the left lower pole kidney is favored to represent a small hematoma. Correlation with CT abdomen and/or MR may be helpful for further clarification, as clinically indicated. 2. Nonobstructive right renal lithiasis. END IMPRESSION Performing Organization Address [facility] Phone Number [facility] [address] [place] [address] POCT glucose, docked (01/23/2019 7:37 AM EST) POC Glucose 210 (H) 70 - 140 mg/dL [facility] POC Specimen Whole Blood Performing Organization Address [facility] Phone Number POINT OF CARE TEST [address] [place] [address] [facility] POC [address] [place] [address] Phosphorus Level (01/23/2019 12:54 AM EST) Phosphorus 4.9 (H) 2.5 - 4.5 mg/dL [facility] Pathology Specimen Plasma Performing Organization Address [facility] Phone Number [facility] [address] [place] [address] [facility] [address] [place] [address] Pathology Magnesium Level (01/23/2019 12:54 AM EST) Magnesium 2.2 1.6 - 2.6 mg/dL [facility] Pathology Specimen Plasma Performing Organization Address [facility] Phone Number [facility] [address] [place] [address] [facility] [address] [place] [address] Pathology Troponin T (01/23/2019 12:54 AM EST) Troponin T 0.04 (H) <0.01 ng/mL [facility] Pathology Specimen Plasma Performing Organization Address [facility] Phone Number [facility] [address] [place] [address] [phone] [facility] [address] [place] [address] Pathology CBC and Differential (01/23/2019 12:54 AM EST) White Blood Cell 14.4 (H) 4 - 10 [facility] 10*3/uL [facility] Red Blood Cell 3.22 (L) 4.6 - 6.1 [facility] 10*6/uL [facility] Hemoglobin 9.1 (L) 13.5 - 18 [facility] g/dL [facility] Pathology Hematocrit 27.4 (L) 41 - 53 % [facility] Mean Cell Volume 85.3 80 - 96 fL [facility] Mean Cell Hemoglobin 28.2 27 - 33 pg [facility] Mean Cell Hgb Conc 33.0 32.0 - 36.0 [facility] g/dL [facility] Pathology Red Cell Dist Width 13.7 11.5 - 14.5 % [facility]ology Platelet Count 517 (H) 150 - 400 [facility] 10*3/uL [facility] Differential Type Automated Diff [facility]ology Neutrophil 89 % [facility] Lymphocyte 6 % [facility] Monocyte 5 % [facility] Eosinophil 0 % [facility]ology Basophil 0 % [facility] Pathology Abs Neutrophil 12.83 (H) 1.8 - 7.0 [facility] 10*3/uL [facility] Abs Lymphocyte 0.80 (L) 1.2 - 4.0 [facility] 10*3/uL [facility] Abs Monocyte 0.67 0 - 0.8 [facility] 10*3/uL [facility] Abs Eosinophil 0.05 0 - 0.5 [facility] 10*3/uL [facility] Abs Basophil 0.06 0 - 0.2 [facility] 10*3/uL [facility] Nucleated Red Blood 0 0 - 0 [facility] Cells /100{WBCs} [facility] Pathology Specimen EDTA Whole Blood Performing Organization Address City/State/Zipcode Phone Number [facility] [address] [place] [address] [phone] [facility] [address] [place] [address] Pathology Basic Metabolic Panel (01/23/2019 12:54 AM EST) Bicarbonate 21 (L) 22 - 29 mmol/L [facility]ology Chloride 83 (L) 98 - 107 mmol/L [facility] Creatinine 6.27 (H) 0.70 - 1.20 [facility] mg/dL [facility] Glucose 315 (H) 70 - 140 mg/dL [facility]ology Potassium 4.4 3.4 - 5.1 [facility] mmol/L [facility] Sodium 121 (L) 136 - 145 [facility] mmol/L [facility] Blood Urea Nitrogen 57 (H) 6 - 20 mg/dL [facility]ology Anion Gap 17 (H) 8 - 15 mmol/L [facility] Pathology Osmolality, Grey 280 275 - 300 [facility] mosm/kg [facility] BUN/Cre Ratio 9 [facility] Pathology Calcium 8.7 8.6 - 10.0 [facility] mg/dL [facility] GFR Non 10 (L) >60 [facility] Niuean 2008 CDK-EPI mL/min/1.73m2 [facility] GFR 12 (L) >60 [facility] 2008 CKD-EPI mL/min/1.73m2 [facility] Pathology Specimen Plasma Performing Organization Address City/State/Zipcode Phone Number [facility] [address] [place] [address] [facility] [address] [place] [address] Pathology XR Chest Frontal Only (01/23/2019 12:54 AM EST) Specimen Narrative Performed At PROCEDURE INFORMATION: [facility] Exam: XR Chest, 1 View Exam date and time: 01/23/2019 1:01 AM Clinical history: 38 years old, male; Other: [employer] for pulmonary edema TECHNIQUE: Imaging protocol: XR of the chest Views: 1 view. COMPARISON: OT CXR CHEST PA LAT 2 VWS 01/22/2019 5:30 PM FINDINGS: Lungs: Pulmonary edema. Small bilateral pleural effusion with adjacent atelectasis vs consolidation. Pleural space: See Lungs Finding. No discernible pneumothorax. Heart/Mediastinum: Unremarkable. No cardiomegaly. Bones/joints: Unremarkable. IMPRESSION: 1. Pulmonary edema. 2. Small bilateral pleural effusion with adjacent atelectasis vs consolidation. Overall, no significant interval change in the appearance of lungs since prior study. THIS DOCUMENT HAS BEEN ELECTRONICALLY SIGNED BY GRACIE GARZA MD Procedure Note Interface, Received Via [employer] - 01/23/2019 1:16 AM EST PROCEDURE INFORMATION: Exam: XR Chest, 1 View Exam date and time: 01/23/2019 1:01 AM Clinical history: 38 years old, male; Other: [employer] for pulmonary edema TECHNIQUE: Imaging protocol: XR of the chest Views: 1 view. COMPARISON: OT CXR CHEST PA LAT 2 VWS 01/22/2019 5:30 PM FINDINGS: Lungs: Pulmonary edema. Small bilateral pleural effusion with adjacent atelectasis vs consolidation. Pleural space: See Lungs Finding. No discernible pneumothorax. Heart/Mediastinum: Unremarkable. No cardiomegaly. Bones/joints: Unremarkable. IMPRESSION: 1. Pulmonary edema. 2. Small bilateral pleural effusion with adjacent atelectasis vs consolidation. Overall, no significant interval change in the appearance of lungs since prior study. THIS DOCUMENT HAS BEEN ELECTRONICALLY SIGNED BY GRACIE GARZA MD Performing Organization Address City/State/Zipcode Phone Number [facility] [address] [place] [address] EKG 12-LEAD - CMAXX REPORT (01/23/2019 12:43 AM EST) Narrative Performed At EKG 12-LEAD - CMAXX REPORT (01/23/2019 12:43 AM EST) Narrative Performed At EKG 12 Lead (01/23/2019 12:43 AM EST) Specimen Narrative Performed At Ventricular Rate: [facility] EKG 95 BPM Atrial Rate: 95 BPM P-R Interval: 182 ms QRS Duration: 78 ms Q-T Interval: 390 ms QTC Calculation(Bazett): 490 ms P Conrath: 49 degrees R Conrath: 12 degrees T Conrath: 160 degrees : SINUS RHYTHM : POSSIBLE LEFT ATRIAL ENLARGEMENT : RSR' OR QR PATTERN IN V1 SUGGESTS RIGHT VENTRICULAR CONDUCTION : DELAY : ST AND NONSPECIFIC T WAVE ABNORMALITIES T WAVE ABNORMALITY, : CONSIDER LATERAL ISCHEMIA : PROLONGED QT : ABNORMAL ECG : NO PREVIOUS ECGS AVAILABLE : Confirmed by MD GARCIA DANIEL ([id number]) on 01/23/2019 9:47:11 : AM Procedure Note Interface, Received Via [employer] - 01/23/2019 9:47 AM EST Ventricular Rate: 95 BPM Atrial Rate: 95 BPM P-R Interval: 182 ms QRS Duration: 78 ms Q-T Interval: 390 ms QTC Calculation(Bazett): 490 ms P Conrath: 49 degrees R Conrath: 12 degrees T Conrath: 160 degrees : SINUS RHYTHM : POSSIBLE LEFT ATRIAL ENLARGEMENT : RSR' OR QR PATTERN IN V1 SUGGESTS RIGHT VENTRICULAR CONDUCTION : DELAY : ST AND NONSPECIFIC T WAVE ABNORMALITIES T WAVE ABNORMALITY, : CONSIDER LATERAL ISCHEMIA : PROLONGED QT : ABNORMAL ECG : NO PREVIOUS ECGS AVAILABLE : Confirmed by MD GARCIA DANIEL ([id number]) on 01/23/2019 9:47:11 : AM Performing Organization Address City/State/Zipcode Phone Number [facility] EKG POCT glucose, docked (01/23/2019 12:29 AM EST) POC Glucose 306 (H) 70 - 140 mg/dL [facility] POC Specimen Whole Blood Performing Organization Address [facility] Phone Number POINT OF CARE TEST [address] [place], [place] [id number] [place] [address] POC [address] [place] [address] documented in this encounter Visit Diagnoses Diagnosis ESRD (end stage renal disease) End stage renal disease Renal failure (ARF), acute on chronic Acute kidney failure, unspecified documented in this encounter Administered Medications Medication Order MAR Action Action Date Dose Rate Site carvedilol (COREG) tablet 12.5 Given 01/27/2019 8:31 AM EST 12.5 mg mg 12.5 mg, Oral, 2 Times Daily, First dose on Sat01/23/19 at 0145, For 30 days, Check vital signs before administering, Given 01/26/2019 9:02 PM EST 12.5 mg Given 01/26/2019 7:55 AM EST 12.5 mg dextrose 50 % IV solution 25 mL New Bag 01/25/2019 3:45 AM EST 25 mLs 25 mL, Intravenous, PRN, Other, blood glucose <55, Starting Sat01/23/19 at 0143, For 30 days, Not for midline administration., New Bag 01/23/2019 1:23 PM EST 25 mLs docusate sodium (COLACE) capsule 100 mg Given 01/27/2019 8:37 AM EST 100 mg 100 mg, Oral, 2 Times Daily, First dose on Sat01/24/19 at 2100, For 30 days Given 01/26/2019 9:02 PM EST 100 mg Given 01/25/2019 8:06 PM EST 100 mg furosemide (LASIX) injection 120 mg New Bag 01/23/2019 10:54 AM EST 120 mg 120 mg, Intravenous, Once, Sat01/23/19 at 1030, For 1 dose furosemide (LASIX) injection 120 mg New Bag 01/23/2019 6:45 PM EST 120 mg 120 mg, Intravenous, Once, Sat01/23/19 at 1800, For 1 dose furosemide (LASIX) injection 120 mg New Bag 01/24/2019 1:29 PM EST 120 mg 120 mg, Intravenous, Once, 01/24/19 at 1215, For 1 dose furosemide (LASIX) tablet 120 mg Given 01/27/2019 1:47 PM EST 120 mg 120 mg, Oral, 2 Times Daily, First dose on Sat01/27/19 at 0800, For 30 days Given 01/27/2019 8:33 AM EST 120 mg furosemide (LASIX) tablet 120 mg Given 01/26/2019 4:16 PM EST 120 mg 120 mg, Oral, Once, Sat01/26/19 at 1530, For 1 dose glucagon (human recombinant) (GLUCAGEN) injection 1 mg 1 mg, Intramuscular, PRN, for glucose <55 without IV access, Starting Sat at 0143, For 30 days glucose (GLUTOSE) 40 % oral gel 15 g 15 g, Oral, PRN, Low blood sugar, for gluose 55-69 mg/dl and able to take PO, Starting Sat01/23/19 at 0143, For 30 days hydrALAZINE (APRESOLINE) tablet 50 mg Given 01/27/2019 8:33 AM EST 50 mg 50 mg, Oral, 2 Times Daily, First dose (after last modification) on Sat01/23/19 at 0145, For 30 days, Check vital signs before administering, Given 01/26/2019 9:02 PM EST 50 mg Given 01/26/2019 7:55 AM EST 50 mg HYDROcodone-acetaminophen (LORTAB) 5-325 Given 01/24/2019 8:18 AM EST 2 tablets MG per tablet 2 tablet 2 tablet, Oral, Every 4 hours PRN, Breakthrough, Starting 01/24/19 at 0020, For 9 hours, Maximum daily dose of acetaminophen is 3,000 mg from all sources in 24 hours., insulin glargine (LANTUS) injection 12 Given 01/26/2019 9:13 PM EST 12 Units Units 12 Units, Subcutaneous, Nightly, First dose (after last modification) on Sat01/25/19 at 2200, For 27 doses, For blood glucose less than 70 mg/dL: follow hypoglycemia protocol ( H-09) and notify provider. For blood glucose values between 70 mg/dL and 100 mg/dL at bedtime: provide snack (15 grams of carbohydrates) with some protein. Administer FULL DOSE of insulin glargine (LANTUS) after snack. Record snack in I&O's. For blood glucose more than 400 mg/dL: notify provider, Given 01/25/2019 9:11 PM EST 12 Units insulin glargine (LANTUS) injection 16 Given 01/24/2019 9:09 PM EST 16 Units Units 16 Units, Subcutaneous, Nightly, First dose on Sat01/23/19 at 0115, For 30 days, For blood glucose less than 70 mg/dL: follow hypoglycemia protocol ( H-09) and notify provider. For blood glucose values between 70 mg/dL and 100 mg/dL at bedtime: provide snack (15 grams of carbohydrates) with some protein. Administer FULL DOSE of insulin glargine (LANTUS) after snack. Record snack in I&O's. For blood glucose more than 400 mg/dL: notify provider, Given 01/23/2019 10:33 PM EST 16 Units Given 01/23/2019 1:26 AM EST 16 Units insulin lispro (HumaLOG) injection LOW DOSE Given 01/24/2019 6:17 PM EST 4 Units EATING INSULIN patients 1-8 Units 1-8 Units, Subcutaneous, Three Times Daily-With Meals, First dose on Sat01/23/19 at 0800, For 30 days, Nursing MUST open the 'SQ Insulin Dosing Charts' Sidebar Report, or, the Patient Summary or Summary Report within the ED. , Given 01/24/2019 1:36 PM EST 3 Units Given 01/23/2019 9:02 AM EST 1 Units insulin lispro (HumaLOG) injection MEDIUM Given 01/27/2019 1:57 PM EST 6 Units DOSE EATING INSULIN patients 1-16 Units 1-16 Units, Subcutaneous, Three Times Daily-With Meals, First dose on Sat01/25/19 at 0800, For 30 days, Nursing MUST open the 'SQ Insulin Dosing Charts' Sidebar Report, or, the Patient Summary or Summary Report within the ED. , Given 01/27/2019 8:48 AM EST 8 Units Given 01/26/2019 5:46 PM EST 6 Units labetalol (NORMODYNE,TRANDATE) injection 20 mg 20 mg, Intravenous, Every 6 hours PRN, High Blood Pressure, Give if sbp >160 , Starting Sat01/27/19 at 0000, For 3 days metoclopramide (REGLAN) injection 5 mg 01/25/2019 4:53 AM EST 5 mg 5 mg, Intravenous, Every 6 hours PRN, Nausea, Starting Sat01/23/19 at 1436, For 47 hours 01/24/2019 9:11 PM EST 5 mg 01/24/2019 3:01 AM EST 5 mg metoclopramide (REGLAN) injection 5 mg 01/26/2019 3:37 AM EST 5 mg 5 mg, Intravenous, Every 6 hours PRN, Nausea, Starting Sat01/25/19 at 1341, For 47 hours 01/25/2019 10:14 PM EST 5 mg ondansetron (ZOFRAN) injection 4 mg 01/24/2019 9:54 AM EST 4 mg 4 mg, Intravenous, Once, 01/24/19 at 0930, For 1 dose ondansetron (ZOFRAN) injection 4 mg 01/27/2019 1:20 AM EST 4 mg 4 mg, Intravenous, Every 8 hours PRN, Nausea, Vomiting, Starting Sat01/25/19 at 1342, For 7 days 01/26/2019 7:55 AM EST 4 mg 01/25/2019 7:14 PM EST 4 mg ondansetron (ZOFRAN) tablet 4 mg Given 01/27/2019 8:17 AM EST 4 mg 4 mg, Oral, Every 8 hours PRN, Nausea, Vomiting, Starting Sat01/25/19 at 1342, For 7 days oxyCODONE (ROXICODONE) immediate release Given 01/25/2019 8:06 PM EST 10 mg tablet 10 mg 10 mg, Oral, Every 4 hours PRN, Severe Pain (Pain Scale Score 7-10), Starting Sat01/23/19 at 0200, For 3 days, Oxycodone immediate release is limited to 10 mg per dose. Higher doses ( only) require Pain Service consultation and approval., Given 01/25/2019 3:15 PM EST 10 mg Given 01/25/2019 4:51 AM EST 10 mg oxyCODONE (ROXICODONE) immediate release Given 01/27/2019 1:48 PM EST 10 mg tablet 10 mg 10 mg, Oral, Every 4 hours PRN, Severe Pain (Pain Scale Score 7-10), Starting Sat01/26/19 at 0336, For 3 days, Oxycodone immediate release is limited to 10 mg per dose. Higher doses ( only) require Pain Service consultation and approval., Given 01/27/2019 9:22 AM EST 10 mg Given 01/27/2019 2:41 AM EST 10 mg oxyCODONE (ROXICODONE) immediate release Given 01/25/2019 11:09 AM EST 5 mg tablet 5 mg 5 mg, Oral, Every 4 hours PRN, Moderate Pain (Pain Scale Score 4-6), Starting Sat01/23/19 at 0200, For 3 days, Oxycodone immediate release is limited to 10 mg per dose. Higher doses ( only) require Pain Service consultation and approval., oxyCODONE (ROXICODONE) immediate release tablet 5 mg 5 mg, Oral, Every 4 hours PRN, Moderate Pain (Pain Scale Score 4-6), Starting Sat01/26/19 at 0336, For 3 days, Oxycodone immediate release is limited to 10 mg per dose. Higher doses ( only) require Pain Service consultation and approval., pantoprazole (PROTONIX) EC tablet 40 mg Given 01/27/2019 8:34 AM EST 40 mg 40 mg, Oral, Daily Standard, First dose on Sat01/23/19 at 0900, For 30 days, Do not crush or chew, Given 01/26/2019 7:55 AM EST 40 mg Given 01/25/2019 8:18 AM EST 40 mg polyethylene glycol (MIRALAX) packet 17 g 17 g, Oral, Daily Standard, First dose on Sat01/25/19 at 0900, For 30 days, Mix in 8 ounces of water, juice or milk. Avoid use in patients who require thickened liquids due to potential increased risk for aspiration., potassium chloride (K-DUR,KLOR-CON) Given 01/25/2019 9:13 PM EST 40 mEq dissolvable tablet 40 mEq 40 mEq, Oral, Once, 01/25/19 at 2015, For 1 dose, May be dissolved in water for patients with a G-Tube or unable to swallow. If concern for clogging G-Tube, may contact Pharmacy to switch formulation to a powder packet., QUEtiapine (SEROquel) tablet 50 mg Given 01/26/2019 12:31 PM EST 50 mg 50 mg, Oral, Nightly, First dose on Sat01/26/19 at 1230, For 30 days senna 8.6 MG 2 tablet Given 01/26/2019 9:02 PM EST 2 tablets 2 tablet, Oral, Nightly, First dose on Sat01/23/19 at 2200, For 30 days Given 01/25/2019 9:12 PM EST 2 tablets Given 01/24/2019 9:09 PM EST 2 tablets sevelamer (RENAGEL) tablet 1,600 mg Given 01/27/2019 1:47 PM EST 1,600 mg 1,600 mg, Oral, Three Times Daily-With Meals, First dose on Sat01/26/19 at 1800, For 30 days, Give with meals, Given 01/27/2019 8:37 AM EST 1,600 mg Given 01/26/2019 5:46 PM EST 1,600 mg documented in this encounter
--- OUTSIDE RECORDS SUMMARY | 2019-02-04 18:49 | XMS REPORT | Summary of Care ---
:1980 Author Organization [facility] Address [address] [place] [address] Care Team Providers Name Role Phone Genaro De Paz MD Primary Care Provider Reason for Visit Auth/Cert Status Reason Specialty Diagnoses / Procedures Referred By Contact Referred To Contact Diagnoses Suicide Ideation [R45.161] Encounter Details Date Type Department Care Team Description 01/27/2019 - Hospital Encounter [id number] PSYCHIATRY Mark Camacho MD [address] [place] [address] [phone] 01/28/2019 INPATIENT Monika Taylor MD [address] [place] [address] [phone] [address] [place] [address] Allergies Active Allergy Reactions Severity Noted Date Comments Fentanyl Other (See Comments) Medium 01/23/2019 "Fentanyl made me very sick" Gluten Free-In Food High 01/23/2019 documented as of this encounter (statuses as of 01/28/2019) Medications Medication Sig Dispensed Refills Start End Date Status Date Polyethylene Take 1 packet by 14 each 0 02/01/20 Active Glycol 3350 Oral mouth daily for 3 9 19 Packet (MIRALAX) daysPlease substitute bottle for packets, if packets are unavailable. Alcohol Swabs Use as directed. 200 each 1 Active Pad use 8-10 per day, 9 E11.65, #200, 1 refill Insulin #200. Use 4-6 200 each 1 Active Syringe-Needle daily, E10.65, 3 9 U-100 31G X refill 15/64" 0.5 ML Insulin Pen Use as directed. 200 each 1 Active Needle 31G X 5 Use 4-6 needles 9 MM per day. Furosemide 40 MG Take 3 tablets by 180 tablet 0 02/28/20 Active Oral Tablet mouth Two Times 9 19 (LASIX) Daily Carvedilol 12.5 Take 1 tablet by 60 tablet 0 02/28/20 Active MG Oral Tablet mouth Two Times 9 19 (COREG) Daily hydrALAZINE HCl Take 1 tablet by 60 tablet 0 02/28/20 Active 50 MG Oral mouth Two Times 9 19 Tablet Daily (APRESOLINE) Pantoprazole Take 1 tablet by 30 tablet 0 02/29/20 Active Sodium 40 MG mouth daily 9 19 Oral Tablet Delayed Release (PROTONIX) Sevelamer HCl Take 2 tablets by 180 tablet 0 02/28/20 Active 800 MG Oral mouth Three times 9 19 Tablet (RENAGEL) daily with meals Insulin Glargine Inject 12 Units 1 vial 0 01/27/20 Active 100 UNIT/ML into the skin 9 Subcutaneous nightly Solution (LANTUS) insulin lispro Patient 10 mL 0 02/19/20 Active 100 UNIT/ML SC Instructions: 9 injection MEDIUM Please refer to DOSE EATING Insulin Sliding INSULIN patients Scale Instructions in the Discharge Instructions. Carvedilol 12.5 Take 1 tablet by 60 tablet 11 01/29/20 Discontinued MG Oral Tablet mouth Two Times 9 19 (Stop Taking at (COREG) Daily Discharge) Docusate Sodium Take 1 capsule by 20 capsule 0 01/29/20 Discontinued 100 MG Oral mouth Two Times 9 19 (Stop Taking at Capsule (COLACE) Daily for 10 days Discharge) Furosemide 40 MG Take 3 tablets by 180 tablet 11 01/29/20 Discontinued Oral Tablet mouth Two Times 9 19 (Reorder) (LASIX) Daily hydrALAZINE HCl Take 1 tablet by 60 tablet 11 01/29/20 Discontinued 50 MG Oral mouth Two Times 9 19 (Stop Taking at Tablet Daily Discharge) (APRESOLINE) Ondansetron HCl Take 1 tablet by 20 tablet 0 01/29/20 Discontinued 4 MG Oral Tablet mouth every 8 9 19 (Stop Taking at (ZOFRAN) (eight) hours as Discharge) needed for up to 7 days Pantoprazole Take 1 tablet by 30 tablet 1 01/29/20 Discontinued Sodium 40 MG mouth daily 9 19 (Stop Taking at Oral Tablet Discharge) Delayed Release (PROTONIX) QUEtiapine Take 1 tablet by 30 tablet 0 01/29/20 Discontinued Fumarate 50 MG mouth nightly 9 19 (Stop Taking at Oral Tablet Discharge) (SEROquel) Senna 8.6 MG Take 2 tablets by 120 each 0 01/29/20 Discontinued Oral Tablet mouth nightly 9 19 (Stop Taking at Discharge) Sevelamer HCl Take 2 tablets by 180 tablet 11 01/29/20 Discontinued 800 MG Oral mouth Three times 9 19 (Stop Taking at Tablet (RENAGEL) daily with meals Discharge) Insulin Glargine Inject 12 Units 5 pen 1 01/29/20 Discontinued 100 UNIT/ML subcutaneously 9 19 (Stop Taking at Subcutaneous every nightly, MDD Discharge) Solution 12 Pen-injector (LANTUS SOLOSTAR, BASAGLAR) documented as of this encounter (statuses as of 01/28/2019) Active Problems Problem Noted Date Suicide ideation 01/27/2019 Renal failure (ARF), acute on chronic 01/23/2019 documented as of this encounter (statuses as of 01/28/2019) Social History Tobacco Use Types Packs/Day Years Used Date Former Smoker Cigarettes 1.5 15 Quit: 01/12/2019 Smokeless Tobacco: Never Used Tobacco Cessation: Counseling Given: Yes Alcohol Use Drinks/Week oz/Week Comments Never Alcohol [...] week 2018 How often do you attend adventist or scientologist services? Never 01/27/2019 Do you belong to any clubs or organizations such as adventist No 01/27/2019 groups, unions, fraternal or athletic [...] Sign Reading Time Taken Comments Blood Pressure 144/97 01/28/2019 8:55 AM EST Pulse 87 01/28/2019 8:56 AM EST Temperature 36.6 01/28/2019 6:00 AM EST C (97.9 F) Respiratory Rate 16 01/28/2019 6:00 AM EST Oxygen Saturation 98% 01/28/2019 6:00 AM EST Inhaled Oxygen Concentration - - Weight 54.5 kg (120 lb 2.4 oz) 01/27/2019 5:03 PM EST Height 175.3 cm (5' 9.02") 01/27/2019 5:03 PM EST Body Mass Index 17.73 01/27/2019 5:03 PM EST documented in this encounter Discharge Instructions Catie Girard LMSW - 01/28/2019 11:22 AM ESTREACH [address] [place] [address] APPOINTMENT: February 04 at 12:00 PM [facility] [address] [place] [address] APPOINTMENT: TomorrowJanuary 29 1:20Electronically signed by Catie Barrera LMSW at 11:47 AM EST Discharge Instr - Other OrdersNicholas Rowan DO - 01/28/2019 11:57 AM EST MEDIUM DOSE (EATING) INSULIN Patient Scale Blood Glucose (mg/dl) NPO or <15 gm carbohydrates solid food or full liquid (<30 gm if only clear liquid consumed) 15-30 gm carbohydrates solid food or full liquid (30-45 gmif only clear liquid consumed) >30 gm carbohydrates solid food or full liquid (>45 gm if only clear liquid consumed) < 70 Hypoglycemia Protocol and then, once blood glucose level is >70 give insulin dose in 70-90 row regardless of new blood glucose level. Hypoglycemia Protocol and then, once blood glucose levelis >70 give insulin dose in 70-90 row regardless of new blood glucose level. Hypoglycemia Protocol and then, once blood glucose level is >70 give insulin dose in 70-90 row regardless of new bloodglucose level. 70 - 90 0 0 3 91 - 130 0 2 4 131 - 150 0 3 5 151 - 200 0 4 6 201- 250 2 5 8 251 - 300 4 6 10 301 - 350 6 8 12 351 - 400 8 10 14 > 401 10 and notify 12 and notify 16 and notify Discharge Instr - Outside ReferralCatie Barrera LMSW - 01/28/2019 11:22 AM ESTCommunity Psychiatric Crisis Services 1. CPEP AVAILABLE 24 HOURS EVERY DAY [address] [place] [address] 2. CONTACT AVAILABLE 24 HOURS EVERY DAY Telephone Crisis Counseling Services http://[email or web address] 3. [facility] Helpline AVAILABLE 24 HOURS EVERY DAY Referral Services 4. Dial 2-1-1 for 24 hour information on community, social, or government services. CRISIS TEXTLINE 115220 National Suicide Prevention Lifeline Phone: or 8 (834) 972-SEDJ Hours: 24 hours, 7 days a week Website: saqib.suicidepreventionlifeline.org National Suicide Hopeline 1-246-692-HOPE (8248) Hours: 08/10 www.[employer] [facility] An advocacy and peer-support organization run by consumers and ex-patients in recovery. Call: 917-sarxw5e (266-271-0815) National [place] on Mental Illness [facility] offers a hotline (5-294-026-[facility] (3198) and email address (info@[facility].org) to help answer your questions about local support groups, services and treatment options. The [facility] Provides crisis intervention and suicide prevention services to lesbian, pat, bisexual, transgender and questioning youth. Call: Domestic Violence If you or someone else is in a relationship is being controlled by another individual through verbal, physical, or sexual abuse, or other tactics, please call: . Depression and Bipolar Support [place] ADULT SUPPORT GROUP MEETS EVERY Saturday FROM 6:15PM TO 8:00PM The group meets at: Transitional Living Services? ([facility]) [address] [address] Entrance and free parking at the rear of the building at [facility] Call for more information: Http://www.[place]ral[place].org/ Depressive Disorders Support Group [facility] [address] [place], [place] Meets , 4:30 PM - 6 PM in the "Teen Room" P: [phone] [employer] (for community/group activities) [address] [place] [address] | www.VTEX.org Walk-in. No membership required. National [place] on Alcoholism and Drug Dependence Hopeline - 08/10 www.ncadd.org [place] O[place]AS HOPEline 877- [facility] (489-9850) - 08/10 www.oasas.oh.gov/index.cfm [facility] National Helpline [facility] National Helpline is a free, confidential, 08/10, 154-qnj-d-year treatment referral andinformation service (in Swedish and Bolivian) for individuals and families facing mental health and/or substance use disorders. This service provides referrals to local treatment facilities, support groups, and community-based organizations. Callers can also order free publications and other information. Call 5-304-904-LPDY (3151) or visit the online treatment locators at https:// findtreatment.[facility].gov/. Alcoholics Anonymous [facility] Service [address], [address] Call 24 hrs/day: http://www.aasyr[place].org/ [facility] Narcotics Anonymous [address], [facility] [address] 24 Hour Phone Info-Line: http://www.Insticator.org/ Access [facility] P: [phone] F: [phone] Oleg Cha, [employer] for Mental Health [email or web address] [facility] Short Term Crisis Respite P: [phone] F: [phone] Email: [email or web address] documented in this encounter Progress Notes Carey Tolentino RN - 01/28/2019 2:02 PM ESTRN Discharge Note- Pt. Discharged to home. Pt. Received,signed, and verbalized discharge instructions, medication regime, and follow up appointments. Pt. Denied SI/HI/AVH and no DTS/ DTO behaviors expressed or observed during the shift and at time of discharge. Pt.'s medication obtained from hospital pharmacy to be sent home with pt. Pt. Denied any belongings in hospital safe.Pt. escorted off unit andsafety maintained. Carey Acosta RN - 01/28/2019 10:41 AM ESTRN Shift Note - Pt. Isolative To room and self spending most of the shift laying in bed;out in milieu minimally for meals and medications. Pt. With irritable mood with congruent affect. Pt. reports that he doesn't need to be here, and denies SI/HI/AVH and no DTS/DTO behaviors expressed or observed at this time. Pt. Med/meal compliant.Pt. with episode of Yellowish colored emesis after breakfast. Pt. Reports that emesis is a chronic occurrence for him and why he was admitted to the hospital on medical floor. AM FS- 156 and consumed 37 grams carbs;covered with 6 units Lispro insulin. Pt. declined to attend unit groups although encouraged by staff. Pt. Safety maintained with 15 minute checks. Will continue to monitor. Bridget Whiting RN - 01/28/2019 4:07 AM ESTNight shift Note: 23:50- Pt had HS FS of 300. Pt has no HS coverage ordered, but pt was uncomfortable with not receiving coverage, because he stated he would have given himself coverage at home. Pt requested that doctor be called. PAM Torres notified by charge histotechnologist, and was told that his results would be reviewed by pts treatment team in AM, and consult for Endocrinology ordered. 01:30- Pt hadapprox 120 cc yellowish emesis, which pt states is chronic for him, and "comes and goes'. Refused offer of Zofran PRN. Will continue to monitor for safety. Luis Callejas, DAVI - 01/27 9:47 PM [id number] RN note: pt has bee isolative to his room; upon approach, pt states that he doesn't feel well, had 7/10 bilateral flank pain 2nd to ESRD. Pt then observed vomiting moderate amount of emesis @2030 when medications were about to be given. Pt stated to come back in 10 minutes, " I' ll be able to take the medication then." NPOD notified concerning pt condition. Anti-emetic medication was ordered; pt informed, but declined offer of PRN, assured this RN that he could now take evening medication,which he did w/o additonal N/V, including oxycodone 10 mg for 7/10 bilateral flank pain. Will continue to monitor. 9: 56 PM Lisa Fitzpatrick RN - 01/27/2019 6:58 PM ESTRN Shift Note: Pt is in the orientation phase of the nurse/patient relationship. Pt is med/meal compliant. Pt visible in the milieu and social with select staff and peers. Pt has an even mood with congruent affect. Pt is upset about Dialysis and lack of care for it. Pt states he is not having SI that he just was upset at the time due to the care he was receiving. Pts FS @ dinner 160. He consumed 9 Carbs and received 0 units of insulin. Pt states that he does not feel like he needs to be here. Pt currently denies any SI/HI/AVH and no DTS/DTO behaviors expressed or observed at this time. 15 minute checks maintained for safety. Will continue to monitor. Lisa Fitzpatrick RN - 01/27/2019 5:29 PM ESTRN Admission Note: Pt arrived via wheelchair from 8G @ 1620 on a 9.37 legal status escorted by security. Pt presented to the ED on 01/23/2019 for ESRD. Resident Nicholas Rowan MD notified of pts arrival and pt was oriented to the unit and 4B policies. ETOH &amp ; drug use. Pt was cooperative withadmission process. Pt mood is even pt upset about being on our floor. Fair Hygiene, stated age, A&Ox3, gait steady, speech and responses appropriate. Pt denies SI/HI/AVH at this time and no DTS/ DTObehaviors expressed or observed, agrees to come to staff if pt feels unsafe or concerned about pt safety. Pt placed on 15 minute checks in order to ensure pt safety and admitted to room. Tamar Luke RN - 01/27/2019 5:02 PM ESTReviewed patient's chart. Patient admitted for SI after treatment on medical unit for renal failure.Currently no CM needs identified. CM will follow for discharge needs. 5 :03 PM Taras Valentine GN - 01/27/2019 4:24 PM ESTPt belongings: Given to pt: Blue hoodie Leonardo slippers Maroon lounge pants In bin: cellphone with textile designs sales representative- several cracks on screen Winter coat Box of cigarettes (4 cigs) documented in this encounter Plan of Treatment Name Type Priority Associated Diagnoses Order Schedule Consult to Assisted PET Rehab Routine Continuous for 30 Days Therapy-Rehab/Psych for 30 Days starting 01/27/2019 until 01/27/2019 documented as of this encounter Procedures Procedure Name Priority Date/Time Associated Diagnosis Comments POCT GLUCOSE, Routine 01/28/2019 11:58 AM Results for this DOCKED EST procedure are in the results section. POCT GLUCOSE, Routine 01/28/2019 7:49 AM Results for this DOCKED EST procedure are in the results section. POCT GLUCOSE, Routine 01/27/2019 10:38 PM Results for this DOCKED EST procedure are in the results section. POCT GLUCOSE, Routine 01/27/2019 5:10 PM Results for this DOCKED EST procedure are in the results section. documented in this encounter Results POCT glucose, docked (01/28/2019 11:58 AM EST) POC Glucose 108 70 - 140 mg/dL [facility] POC Specimen Whole Blood Performing Organization Address [facility] Phone Number POINT OF CARE TEST [address] [place] [address] [facility] POC [address] [place] [address] POCT glucose, docked (01/28/2019 7:49 AM EST) POC Glucose 156 (H) 70 - 140 mg/dL [facility] POC Specimen Whole Blood Performing Organization Address [facility] Phone Number POINT OF CARE TEST [address] [place] [address] [facility] POC [address] [place] [address] POCT glucose, docked (01/27/2019 10:38 PM EST) POC Glucose 300 (H) 70 - 140 mg/dL [facility] POC Specimen Whole Blood Performing Organization Address City/State/Zipcode Phone Number POINT OF CARE TEST [address] [place] [address] [facility] POC [address] [place] [address] POCT glucose, docked (01/27/2019 5:10 PM EST) POC Glucose 160 (H) 70 - 140 mg/dL [facility] POC Specimen Whole Blood Performing Organization Address City[facility] Phone Number POINT OF CARE TEST [address] [place] [address] [facility] POC [address] [place] [address] documented in this encounter Visit Diagnoses Diagnosis Suicide ideation Suicidal ideation documented in this encounter Administered Medications Medication Order MAR Action Action Date Dose Rate Site carvedilol (COREG) tablet 12.5 Given 01/28/2019 8:56 AM EST 12.5 mg mg 12.5 mg, Oral, 2 Times Daily, First dose on Sat01/27/19 at 1999, For 30 days, Check vital signs before administering, Given 01/27/2019 8:45 PM EST 12.5 mg dextrose 50 % IV solution 25 mL 25 mL, Intravenous, PRN, Other, blood glucose <55, Starting Sat01/27/19 at 1725, For 30 days, Not for midline administration., docusate sodium (COLACE) capsule 100 mg Given 01/28/2019 8:55 AM EST 100 mg 100 mg, Oral, 2 Times Daily, First dose on Sat01/27/19 at 1999, For 30 days Given 01/27/2019 8:44 PM EST 100 mg furosemide (LASIX) tablet 120 mg Given 01/28/2019 8:55 AM EST 120 mg 120 mg, Oral, 2 Times Daily, First dose on Sat01/27/19 at 1999, For 30 days Given 01/27/2019 8:45 PM EST 120 mg glucagon (human recombinant) (GLUCAGEN) injection 1 mg 1 mg, Intramuscular, PRN, for glucose <55 without IV access, Starting 01/27 at 1725, For 30 days glucose (GLUTOSE) 40 % oral gel 15 g 15 g, Oral, PRN, Low blood sugar, for gluose 55-69 mg/dl and able to take PO, Starting Sat01/27/19 at 1725, For 30 days hydrALAZINE (APRESOLINE) tablet 50 mg Given 01/28/2019 8:55 AM EST 50 mg 50 mg, Oral, 2 Times Daily, First dose on Sat01/27/19 at 2000, For 30 days, Check vital signs before administering, Given 01/27/2019 8:44 PM EST 50 mg insulin glargine (LANTUS) injection 12 Given 01/27/2019 10:43 PM EST 12 Units Units 12 Units, Subcutaneous, Nightly, First dose on Sat01/27/19 at 2200, For 30 days, For blood glucose less than 70 mg/dL: follow hypoglycemia protocol ( ) and notify provider. For blood glucose values between 70 mg/dL and 100 mg/dL at bedtime: provide snack (15 grams of carbohydrates) with some protein. Administer FULL DOSE of insulin glargine (LANTUS) after snack. Record snack in I&O's. For blood glucose more than 400 mg/dL: notify provider, insulin lispro (HumaLOG) injection MEDIUM Given 01/28/2019 8:54 AM EST 6 Units DOSE EATING INSULIN patients 1-16 Units 1-16 Units, Subcutaneous, Three Times Daily-With Meals, First dose on Sat01/27/19 at 1730, For 30 days, Nursing MUST open the 'SQ Insulin Dosing Charts' Sidebar Report, or, the Patient Summary or Summary Report within the ED. , ondansetron (ZOFRAN-ODT) disintegrating tablet Given 01/27/2019 10:46 PM EST 4 mg 4 mg 4 mg, Oral, Every 8 hours PRN, Nausea, Vomiting, Starting Sat01/27/19 at 2045, For 30 days, Dissolve on tongue., oxyCODONE (ROXICODONE) immediate release Given 01/28/2019 9:25 AM EST 10 mg tablet 10 mg 10 mg, Oral, Every 4 hours PRN, Severe Pain (Pain Scale Score 7-10), MDD 30 mg from all sources, Starting Sat01/27/19 at 1750, For 3 days, Oxycodone immediate release is limited to 10 mg per dose. Higher doses ( only) require Pain Service consultation and approval., Given 01/28/2019 5:13 AM EST 10 mg Given 01/27/2019 8:44 PM EST 10 mg oxyCODONE (ROXICODONE) immediate release tablet 5 mg 5 mg, Oral, Every 4 hours PRN, Moderate Pain (Pain Scale Score 4-6), MDD 30 mg from all sources, Starting Sat01/27/19 at 1750, For 3 days, Oxycodone immediate release is limited to 10 mg per dose. Higher doses ( only) require Pain Service consultation and approval., pantoprazole (PROTONIX) EC tablet 40 mg Given 01/28/2019 8:55 AM EST 40 mg 40 mg, Oral, Daily Standard, First dose on Sat01/28/19 at 0800, For 30 days, Do not crush or chew, polyethylene glycol (MIRALAX) packet 17 g Given 01/28/2019 8:58 AM EST 17 g 17 g, Oral, Daily Standard, First dose on Sat01/28/19 at 0800, For 30 days, Mix in 8 ounces of water, juice or milk. Avoid use in patients who require thickened liquids due to potential increased risk for aspiration., QUEtiapine (SEROquel) tablet 50 mg 50 mg, Oral, Nightly, First dose on Sat01/27/19 at 2200, For 30 days QUEtiapine (SEROquel) tablet 50 mg 50 mg, Oral, Every 4 hours PRN, Other, for sleep or agitation MDD 200 mg from all sources, Starting Sat01/27/19 at 1724, For 30 days senna 8.6 MG 2 tablet Given 01/27/2019 10:39 PM EST 2 tablets 2 tablet, Oral, Nightly, First dose on Sat01/27/19 at 2200, For 30 days sevelamer (RENAGEL) tablet 1,600 mg Given 01/28/2019 8:58 AM EST 1,600 mg 1,600 mg, Oral, Three Times Daily-With Meals, First dose on Sat01/27/19 at 1800, For 30 days, Give with meals, Given 01/27/2019 6:43 PM EST 1,600 mg documented in this encounter
[2019-02-04 20:17] LABS: ABS Basophils 0.1 10^3/ul (0-0.2); ABS Eosinophils 0.1 10^3/ul (0-0.6); ABS Lymphocytes 0.9 10^3/ul (1.0-4.8); ABS Monocytes 0.5 10^3/ul (0-0.8); Eosinophil % 0.9 %; Hematocrit 31 % (42-52); Hemoglobin 10.6 g/dL (14.0-18.0); Lymphocyte % 8.7 %; Mean Corpuscular HGB Conc 34 g/dL (31-36); Mean Corpuscular Hemoglobin 28 pg (27-31); Mean Corpuscular Volume 83 fL (80-94); Mean Platelet Volume 7.5 fL (7.4-10.4); Platelet Count 490 10^3/uL (150-450); Red Blood Count 3.76 10^6 /uL (4.18-5.48); Red Cell Distribution Width 14 % (10-15); White Blood Count 10.6 10^3/uL (3.5-10.8)
[2019-02-04] MEDS ORDERED: PROCHLORPERAZINE INJ 5 MG/ML 2 ML VIAL IV ONE (20:17)
--- NOTE | 2019-02-04 20:19 | ED ---
Complex/Multi-Sys Presentation - HPI Summary HPI Summary: 38 year old M presenting to [facility] complains of worsening constant low back pain , intermittent nausea/vomiting every couple hours, intermittent shortness of breath, dizziness upon standing, decreased appetite for several weeks. Was seen at [place] 1 month ago, dx kidney failure, had fistula placed in his left upper extremity. States he was discharged and told he needed a catheter. Was also told he had cardiac problem but unspecified cardiac dx. States he was seen recently at [facility] for sx vomiting on 01/22, was supposed to have catheter placed but didn't, was transferred to [place]. Admitted to [place], d/c 1 week ago , was prescribed hydroxyzine and hydrocodone, was referred to primary care provider but hasn't gone, was not referred to food cooking machine operator, states he does not have food cooking machine operator established. The patient rates the pain 8/10 in severity. Symptoms aggravated by nothing. Symptoms alleviated by nothing. Has been taking his hydrocodone to treat his pain without relief. - History Of Current Complaint Chief Complaint: EDGeneral Time Seen by Provider: 02/04/19 20:08 Hx Obtained From: Patient Onset/Duration: Lasting Weeks, Still Present Timing: Constant Severity Currently: Severe - 8/10 Aggravating Factor(s): Nothing Alleviating Factor(s): Nothing - Allergies/Home Medications Allergies/Adverse Reactions: Allergies Allergy/AdvReac Type Severity Reaction Status Date / Time gluten Allergy Abdominal Verified 01/22/19 15:49 Pain PMH/Surg Hx/FS Hx/Imm Hx Endocrine/Hematology History: Reports: Hx Diabetes - Type 1 Denies: Hx Anticoagulant Therapy, Hx Blood Disorders, Hx Blood Transfusions, Hx Bone Marrow Disease, Hx Systemic Lupus Erythematosus, Hx Sickle Cell Disease , Hx Thyroid Disease, Hx Anemia, Hx Unexplained Bleeding, Other Endocrine/ Hematological Disorders Cardiovascular History: Denies: Hx Cardiac Arrest, Hx Hypotension, Hx Pacemaker/ICD, Hx Peripheral Vascular Disease, Other Cardiovascular Problems/Disorders Respiratory History: Reports: Hx Pneumonia Denies: Hx Asthma, Hx Chronic Bronchitis, Hx Chronic Obstructive Pulmonary Disease (COPD), Hx Cystic Fibrosis, Hx Lung Cancer, Hx Pleural Effusion, Hx Pulmonary Edema, Hx Pulmonary Embolism, Hx Seasonal Allergies, Hx Sleep Apnea, Other Respiratory Problems/Disorders GI History: Reports: Hx Gastroesophageal Reflux Disease, Hx Gastrointestinal Bleed, Hx Ulcer - in the past, Other GI Disorders - Gastroparesis, Celiac's Denies: Hx Cirrhosis, Hx Crohn's Disease, Hx Diverticulosis, Hx Gall Bladder Disease, Hx Hiatal Hernia, Hx Irritable Bowel, Hx Jaundice, Hx Obstructive Bowel , Hx Ileostomy, Hx Pyloric Stenosis History: Reports: Hx Acute Renal Failure, Other Problems/Disorders - chronic kidney disease Denies: Hx Benign Prostatic Hyperplasia, Hx Chronic Renal Failure, Hx Dialysis, Hx Kidney Infection, Hx Kidney Stones, Hx Renal Disease Musculoskeletal History: Denies: Hx Arthritis, Hx Osteoporosis Sensory History: Reports: Hx Vision Problem Denies: Hx Cataracts, Hx Contacts or Glasses, Hx Eye Injury, Hx Eye Prosthesis, Hx Glaucoma, Hx Macular Degeneration, Hx Deafness, Hx Hearing Aid, Hx Hearing Problem, Other Sensory Impairments Opthamlomology History: Reports: Hx Vision Problem Denies: Hx Cataracts, Hx Contacts or Glasses, Hx Eye Injury, Hx Eye Prosthesis, Hx Glaucoma, Hx Macular Degeneration, Other Sensory Impairments Neurological History: Reports: Hx Headaches, Hx Nerve Disease - neuropathy r/t DM, Other Neuro Impairments/Disorders - nephro and neuroapthy r/t DM Denies: Hx Dementia, Hx Developmental Delay, Hx Migraine, Hx Seizures, Hx Spinal Cord Injury, Hx Transient Ischemic Attacks (TIA) Psychiatric History: Reports: Hx Anxiety, Hx Depression, Hx Post Traumatic Stress Disorder, Hx Inpatient Treatment, Hx Community Mental Health Tx, Hx Bipolar Disorder, Hx Substance Abuse Denies: Hx Attention Deficit Hyperactivity Disorder, Hx Eating Disorder, Hx Panic Disorder, Hx Schizophrenia, Hx Suicide Attempt, Hx of Violent Episodes Against Others, Other Psychiatric Issues/Disorders - Cancer History Cancer Type, Location and Year: celiac disease Hx Chemotherapy: No Hx Radiation Therapy: No - Surgical History Surgery Procedure, Year, and Place: fistula left forearm 01/19/19 Hx Anesthesia Reactions: No - Immunization History Date of Tetanus Vaccine: utd Date of Influenza Vaccine: no Infectious Disease History: No Infectious Disease History: Denies: Hx Hepatitis, Hx Human Immunodeficiency Virus (HIV), Hx of Known/ Suspected MRSA, Hx Shingles, Hx Tuberculosis, History Other Infectious Disease, Traveled Outside the [place] in Last 30 Days - Family History Known Family History: Positive: Cardiac Disease, Diabetes Negative: Hypertension - Social History Alcohol Use: None Hx Substance Use: Yes Substance Use Type: Reports: Marijuana Substance Use Comment - Amount & Last Used: weekly small amount ( a few grams a week) Hx Tobacco Use: Yes Smoking Status (MU): Heavy Every Day Tobacco Smoker Type: Cigarettes Amount Used/How Often: 1/2 - 1 PPD a day and has smoked in the last 30 days Length of Time of Smoking/Using Tobacco: 20 years Have You Smoked in the Last Year: Yes Review of Systems Positive: Shortness Of Breath Positive: Vomiting, Nausea, Other - decreased appetite Positive: Other - low back pain Neurological: Other - Dizziness All Other Systems Reviewed And Are Negative: Yes Physical Exam - Summary Physical Exam Summary: Appearance: Uncomfortable appearing male who is hyperventilating in the stretcher Skin: Warm, dry, no obvious rash. He has a healing surgical wound on left forearm from fistula placement that has not matured yet Eyes: sclera anicteric, no conjunctival pallor ENT: mucous membranes moist, pharynx appears normal Neck: Supple, nontender Respiratory: Clear to auscultation, no signs of respiratory distress Cardiovascular: Normal S1, S2. No murmurs. Normal distal pulses in tibial and radial bilaterally. Abdomen: Soft, mild generalized abdominal tenderness without any peritoneal signs, normal active bowel sounds present Musculoskeletal: Normal, Strength/ROM Intact. Vargas significant peripheral edema Neurological: A&Ox3, awake and alert, mentation is normal, speech is fluent and appropriate Psychiatric: affect is normal, does not appear anxious or depressed Triage Information Reviewed: Yes Vital Signs On Initial Exam: Initial Vitals Temp Pulse Resp BP Pulse Ox 98.3 F 100 18 170/95 100 02/04/19 18:36 02/04/19 18:36 02/04/19 18:36 02/04/19 18:36 02/04/19 18:36 Vital Signs Reviewed: Yes Procedures - Sedation Patient Received Moderate/Deep Sedation with Procedure: No Diagnostics - Vital Signs Vital Signs Temp Pulse Resp BP Pulse Ox 02/04/19 18:36 98.3 F 100 18 170/95 100 - Laboratory Result Diagrams: 02/08/19 07:22 02/08/19 07:22 Lab Statement: Any lab studies that have been ordered have been reviewed, and results considered in the medical decision making process. - Radiology CXR Radiology Interpretation Completed By: ED Physician Summary of Radiographic Findings: No acute process. Pulmonary edema seen on prior film has resolved. Pending official report Re-Evaluation - Re-Evaluation First Eval Re-Evaluation Time: 21:13 Change: Unchanged Comment: agrees to admission Complex Multi-Symp Course/Dx Course Of Treatment: 38 year old M complains of worsening constant low back pain , intermittent vomiting every couple hours, intermittent shortness of breath, dizziness upon standing, decreased appetite for several weeks. Was seen at [place] 1 month ago, dx kidney failure, had fistula put in his left upper extremity. States he was discharged and told he needed a catheter. States he was seen at [facility], was supposed to have catheter but didn't, was transferred to [place]. Admitted to [place], d/c 1 week ago 01/28. States he does not have food cooking machine operator established. Upon exam, the patient is an uncomfortable appearing man who is hyperventilating in the stretcher. He has a healing surgical wound on left forearm from fistula placement that has not matured yet. There is mild generalized abdominal tenderness without any peritoneal signs. No significant peripheral edema. Bloodwork results with no significant abnormalities except for RBC 3.76, Hgb 10.6, Hct 31, platelet count 490, absolute neuts 9.0, absolute lymphs 0.9, sodium 123, chloride 80, anion gap 12, BUN 60, creatinine 7.45, glucose 392, lactic acid 2.3, BNP >1300. CXR shows no acute process, pulmonary edema seen on prior film has resolved. In the ED course, the patient was given Compazine 10 mg IV. Spoke with Dr. Gardner, nephrology, who recommends admission. Dr. Batres, hospitalist, agrees to admit patient. The patient will be admitted to the hospitalist. - Diagnoses Provider Diagnoses: Uremia, Nausea, Intractable vomiting - Physician Notifications Discussed Care Of Patient With: Santa Gardner Time Discussed With Above Provider: 21:07 Instructed by Provider To: Other - Dr. Gardner, nephrology, recommends admission. Dr. Batres, hospitalist, agrees to admit patient 21:37. Discharge ED - Sign-Out/Discharge Documenting (check all that apply): Patient Departure - Admit - Discharge Plan Condition: Stable Disposition: ADMITTED TO [facility] - Billing Disposition and Condition Condition: STABLE Disposition: Admitted to [facility] - Attestation Statements Document Initiated by Scribe: Yes Documenting Scribe: Lia Hernandez Provider For Whom Flash is Documenting (Include Credential): Naveed Loo MD Scribe Attestation: I, Lia Hernandez, scribed for Naveed Loo MD on 02/08/19 at 2344. Scribe Documentation Reviewed: Yes Provider Attestation: The documentation as recorded by the scribe, Lia Hernandez accurately reflects the service I personally performed and the decisions made by me, Naveed Loo MD Status of Scribe Document: Viewed
[2019-02-04 20:31] LABS: Albumin 3.6 g/dL (3.2-5.2); BUN/Creatinine Ratio 8.1 (8-20); Calcium 8.9 mg/dL (8.6-10.3); EGFR Non-African American 8.3 (>60); Globulin 3.7 g/dL (2-4); Potassium 4.5 mmol/L (3.5-5.0); Total Bilirubin 0.3 mg/dL (0.2-1.0); Total Protein 7.3 g/dL (6.4-8.9)
[2019-02-04] MEDS ORDERED: LORazepam TAB(*) 1 MG PO ONE (21:46)
[2019-02-04] MEDS ORDERED: oxyCODONE TAB* 5 MG TAB PO ONE (21:46)
[2019-02-04] MEDS ORDERED: Heparin VIAL(*) 5000 UNITS/ML VIAL (FIVE THOUSAND) SUBCUT SCH (22:00)
[2019-02-04] MEDS: Carvedilol TAB* 6.25 MG PO SCH (22:47)
[2019-02-04] MEDS: hydrALAZINE TAB* 25 MG PO SCH (22:47)
--- NOTE | 2019-02-05 00:41 | HP ---
History of Present Illness - History of Present Illness Reason for Visit: N/V, weakness History of Present Illness: 38 yo male with ESRD and DM1 presented to the ED with complaints of worsening low back pain, N/V, weakness and dizziness. He was in [place] last month for same issue, got a renal biopsy there, an AV fistula and was transferred to [facility]. [facility] did not feel that dialysis as of that time was indicated and discharged him after aggressive diuresis. He was complaining of low back pain there and was found to have a hematoma from the renal biopsy. He returned to the ER with wrosening symptoms. N/V, decreased appetite, weakness , dizziness. ED got a hold of nephrology. Nephrology recommended admission and placement of a permCath for dialysis tomorrow for uremia. - Past Medical History Cardiac: HTN Gastrointestinal: GERD Psych: Anxiety, Depression Review of Systems - Measurements Intake and Output: Intake and Output Last 24 Hours 02/02/19 02/03/19 02/04/19 02/05/19 06:59 06:59 06:59 06:59 Weight 130 lb - Review of Systems Constitutional Symptoms: Positive: Weakness, Fatigue, Unexplained Falls Dermatology: Negative: Normal, Rash, Skin Lesions, Cancer, Skin Lumps, Other HEENT: Negative: Normal, Change in Hearing, Vertigo, Dental Problems, Tinnitus, Sinus Problem, Other Eyes: Negative: Normal, Change in Vision, Double Vision, Eye Pain, Glaucoma, Cataract, Contacts or Glasses, Other Thyroid: Negative: Normal, Goiter, Thyroid Nodule, Cold Intolerance, Heat Intolerance , Sweatiness, Tremor, Frequent Defecation, Constipation, Palpitations, Primary Hypothyroidism, Primary Hyperthyroidism, Weight Loss, Weight Gain, Change in Skin/Hair, Change in Menstruation, Radiation Exposure, Other Pulmonary: Positive: Shortness of Breath Cardiology: Positive: Shortness of Breath Negative: Normal, Chest Pain, Palpitations, Swelling of Ankles, Peripheral Vascular Dis, Edema, Faintness, Syncope, Claudication, Proximal NocturnalDyspnea , Orthopnoea, Other Gastroenterology: Positive: Abdominal Pain, Nausea, Vomiting Negative: Normal, Anorexia, Indigestion, Difficulty Swallowing, Heartburn, Constipation, Diarrhea, Blood in Stools, Change in Bowel Habits, Haematemesis, Melena, Other Neurology: Positive: Headache, Dizziness Negative: Normal, Migraines, Change in Vision, Diplopia, Change in Balancing , Change in Coordination, Change in Memory, Change in Speech, Change in Sphincter Function, Change in Walking, Numbness\Paresthesiae, Unexplained Weakness, Hx of Stroke\TIA, Hx of Seizures, Other Psychiatry: Positive: Anxiety Objective Active Medications: Carvedilol (Coreg Tab*) 12.5 mg PO BID [facility] Last Admin: 02/04/19 22:47 Dose: 12.5 mg Heparin Sodium (Porcine) (Heparin Vial(*)) 5,000 units SUBCUT Q8HR [facility] Last Admin: 02/04/19 22:47 Dose: Not Given Hydralazine HCl (Apresoline Tab*) 50 mg PO BID [facility] Last Admin: 02/04/19 22:47 Dose: 50 mg Insulin Glargine (Lantus(*)) 15 units SUBCUT BEDTIME [facility] Insulin Human Lispro (Humalog*) 0 units SUBCUT ACHS [facility]; Protocol Oxycodone HCl (Oxycodone Oral.Soln*) 5 mg PO Q6H PRN PRN Reason: PAIN - SEVERE Pantoprazole Sodium (Protonix Tab*) 40 mg PO DAILY [facility] Vital Signs - 8 hr 02/04/19 02/04/19 02/04/19 18:36 20:18 20:46 Temperature 98.3 F Pulse Rate 100 103 101 Respiratory 18 39 Rate Blood Pressure 170/95 182/85 (mmHg) O2 Sat by Pulse 100 100 100 Oximetry 02/04/19 02/04/19 02/04/19 20:47 21:00 21:17 Temperature Pulse Rate 101 102 104 Respiratory 37 7 21 Rate Blood Pressure 180/93 176/87 (mmHg) O2 Sat by Pulse 100 88 100 Oximetry 02/04/19 02/04/19 02/04/19 21:47 21:53 22:00 Temperature Pulse Rate 100 98 Respiratory 12 14 15 Rate Blood Pressure 166/85 (mmHg) O2 Sat by Pulse 98 96 Oximetry 02/04/19 02/04/19 02/04/19 22:17 22:47 23:00 Temperature Pulse Rate 97 95 Respiratory 10 21 16 Rate Blood Pressure 186/93 182/89 (mmHg) O2 Sat by Pulse 96 95 Oximetry 02/04/19 02/04/19 02/04/19 23:19 23:23 23:32 Temperature 100.4 F Pulse Rate 101 101 107 Respiratory 21 35 20 Rate Blood Pressure 186/93 (mmHg) O2 Sat by Pulse 99 98 94 Oximetry Appearance: he looks uncomfortable Eyes: No Scleral Icterus, PERRLA Ears/Nose/Mouth/Throat: Mucous Membranes Moist Neck: NL Appearance and Movements; NL JVP, Trachea Midline Respiratory: Symmetrical Chest Expansion and Respiratory Effort, Clear to Auscultation, Clear to Percussion Cardiovascular: NL Sounds; No Murmurs; No JVD, No Edema Abdominal: NL Sounds; No Tenderness; No Distention, No Hepatosplenomegaly Skin: No Rash or Ulcers Neurological: Alert and Oriented x 3 Result Diagrams: 02/04/19 20:07 02/04/19 20:07 Assess/Plan/Problems-Billing Assessment: - Patient Problems (1) ESRD (end stage renal disease) Current Visit: Yes Status: Acute Code(s): N18.6 - END STAGE RENAL DISEASE SNOMED Code(s): 33063391 Comment: diabetic nephropathy has a fistula done 01/19, not yet matured. Coming in with uremic symptoms nephrology recommends a Perm Cath placed in the morning for dialysis in the evening tomorrow INR (2) DVT prophylaxis Current Visit: No Status: Acute Code(s): BQF6394 - SNOMED Code(s): 289878539 Comment: encourage ambulation, TEDs due to uremia and hematoma, no chemical ppx (3) Full code status Current Visit: No Status: Acute Onset Date: 06/14/14 Code(s): Z78.9 - OTHER SPECIFIED HEALTH STATUS SNOMED Code(s): 209073352 Comment: (4) GERD without esophagitis Current Visit: No Status: Acute Code(s): K21.9 - GASTRO-ESOPHAGEAL REFLUX DISEASE WITHOUT ESOPHAGITIS SNOMED Code(s): 986912971 Comment: protonix (5) Hypertension Current Visit: No Status: Acute Code(s): I10 - ESSENTIAL (PRIMARY) HYPERTENSION SNOMED Code(s): 95496754 Comment: home meds, carvedilol (6) Major depressive disorder Current Visit: No Status: Acute Code(s): F32.9 - MAJOR DEPRESSIVE DISORDER, SINGLE EPISODE, UNSPECIFIED SNOMED Code(s): 350600121 Comment: not on any home meds Known to have a lot of psychiatric issues
[2019-02-05] MEDS ORDERED: Insulin GLARGINE(*) 1 UNITS UNIT SUBCUT SCH ×2 (01:00→21:00)
[2019-02-05] MEDS ORDERED: oxyCODONE TAB* 5 MG TAB PO ONE (01:00)
[2019-02-05] MEDS: Insulin LISPRO* 1 UNITS UNIT SUBCUT SCH ×5 (01:11→20:39)
[2019-02-05 03:05] LABS: Urine Appearance Clear; Urine Bilirubin Negative (Negative); Urine Blood Negative (Negative); Urine Color Straw; Urine Glucose 3+(>=500 mg/dL) (Negative); Urine Ketones Negative (Negative); Urine Nitrite Negative (Negative); Urine Protein 2+(100 mg/dL) (Negative); Urine Specific Gravity 1.007 (1.010-1.030); Urine Urobilinogen Negative (Negative)
[2019-02-05 03:08] LABS: Urine Bacteria Absent (Absent); Urine Red Blood Cell Absent (Absent); Urine White Blood Cell Absent (Absent)
[2019-02-05] MEDS ORDERED: Dextrose 50% VIAL 50 ml ONE ×2 (04:03→04:06)
[2019-02-05] MEDS ORDERED: oxyCODONE ORAL.SOLN* 5 MG/5 ML UDC PO PRN (05:00)
[2019-02-05] MEDS ORDERED: Dextrose 50% VIAL 50 ml IV PUSH PRN ×2 (05:07→07:23)
[2019-02-05] MEDS ORDERED: traMADol TAB* 50 MG PO PRN (08:03)
[2019-02-05] MEDS: Acetaminophen TAB* 325 MG PO PRN ×2 (08:39→22:18)
[2019-02-05] MEDS ORDERED: Heparin VIAL(*) 5000 UNITS/ML VIAL (FIVE THOUSAND) ONE (09:29)
[2019-02-05] MEDS: oxyCODONE TAB* 5 MG TAB PO PRN ×2 (09:47→18:36)
[2019-02-05] MEDS: Pantoprazole TAB * 40 MG TAB PO SCH (09:55)
[2019-02-05] MEDS: Carvedilol TAB* 6.25 MG PO SCH ×2 (09:55→20:24)
[2019-02-05] MEDS: hydrALAZINE TAB* 25 MG PO SCH ×2 (09:55→20:24)
--- NOTE | 2019-02-05 10:23 | PN ---
Progress Note - Progress Note Date of Service: 02/05/19 Note: Patient needs HD ANNA. Couldn't get a tunneled HD Catheter in count of scheduling issues, hence a bedside temporary HD catheter was indicated. Has Left AVF that's immature. He refused bedside catheter placement, refused any procedure under Local. He demanded GA and pain meds~Opiates. I told him I'll use lots of Local & some sedation, but he refused fearing pain. He said "I have PTSD" He understood the risk of missing out on HD catheter placement, was he won't be able to get HD today. I told him his life and health will be in Jeopardy, he said " My life is always in Jeopardy". Dr. Gardner, on consult service, & primary team made aware. His day nurse witnessed this conversation and will leave a note too.
[2019-02-05] MEDS ORDERED: NS 0.9% 1000 ML** 1,000 ML IV SCH (10:30)
--- NOTE | 2019-02-05 12:12 | CONS ---
NEPHROLOGY CONSULT NOTE: DATE OF CONSULT: 02/05/19 REQUESTED BY: Emergency Room. CHIEF COMPLAINT: End-stage kidney disease. HISTORY OF PRESENT ILLNESS: Mr. Simmons is a very unfortunate 38-year-old gentleman, who comes in complaining of weakness, nausea, vomiting, dizziness, and low back pain. He was seen in this hospital about a month ago complaining of about the same symptoms. He was transferred to [facility] where he was diuresed and sent back home. Also, he had a kidney biopsy in [place] around the same time. The results of the kidney biopsy are not known to me, but I will get the results. The procedure was complicated with a retroperitoneal hematoma. He has an AV fistula that was placed recently but has not matured yet. So, he comes to the ER complaining of what seems to be uremic symptoms. He has a longstanding history of type 1 diabetes mellitus. He was diagnosed when he was 4 years old and apparently it was not well controlled and that is why he is ending up with end-stage kidney disease. He also has a history of hypertension. He also has a psychiatric history known for depression, anxiety, PTSD. PAST MEDICAL HISTORY: Significant for: 1. Longstanding type 1 diabetes mellitus. 2. Hypertension. 3. GERD. 4. PTSD. CURRENT MEDICATIONS: 1. Acetaminophen 650 mg p.o. q.6 hours p.r.n. pain. 2. Carvedilol 12.5 mg p.o. b.i.d. 3. Dextrose 50% as needed for hypoglycemia. 4. Hydralazine 50 mg p.o. b.i.d. 5. Insulin glargine 12 units percutaneously at bedtime every day. 6. Insulin Humalog per sliding scale. 7. Oxycodone 5 mg p.o. every 8 hours p.r.n. for severe pain. 8. Pantoprazole 40 mg daily. FAMILY HISTORY: The patient is not able to give family history. He tells me that he is not interested in his family because they threw him out of the house some time ago and they do not want to know anything about him. SOCIAL HISTORY: The patient denies drinking alcohol but he does use drugs. He admits using marijuana. He does smoke and he has been smoking for about 20 years 1 pack per day. He smokes cigarettes. REVIEW OF SYSTEMS: Constitutional: He is very weak, no fevers or chills. GI: Low appetite, vomiting, mild abdominal tenderness, no constipation or diarrhea. Musculoskeletal: Back pain. Respiratory: No shortness of breath, wheezing, sputum production or hemoptysis. Neurological: No tremors, speech is fluent, grossly nonfocal. Cardiovascular: He denies any chest pain, shortness of breath at rest, or palpitations. All systems were reviewed and they were all negative unless otherwise specified. PHYSICAL EXAM: Blood pressure is 146/67, heart rate is 81 beats per minute, respiratory rate is 16 per minute, temperature is 97.4. Constitutional: He seems in mild distress because of not feeling well. Cardiovascular: Heart exam shows the S1, S2, regular rate and rhythm, no murmurs, rubs, or gallops appreciated. He has no lower extremity edema. Head is atraumatic and normocephalic. Neck shows no JVD, no adenopathy and no thyromegaly. Trachea is midline. Eyes are without swelling, pupils are equal, and there is no ptosis , no scleral jaundice.. Respiratory: Lung exam shows that lungs are clear to auscultation, no wheezing, no crackles. He has good respiratory effort. Abdomen: positive bowel sounds, nondistended, but tender diffusely on palpation. Skin shows decreased turgor, normal temperature, no rashes. Musculoskeletal: It seems to be normal. Neurologic: Speech is fluent, grossly nonfocal, no tremor. Psychiatric: He is alert and oriented x3. Appears anxious, insight seems to be appropriate. DIAGNOSTIC STUDIES/LAB DATA: Labs from last night show a white blood cell count of 10.6, hemoglobin is 10.6, platelets 490. Sodium 123, potassium 4.3, bicarb 31, BUN 60, creatinine is 7.45. ASSESSMENT AND PLAN: The patient is a very unfortunate 38-year-old male, who comes in with uremic symptoms. He cannot tell who is the patient monitor he has seen in the past. He has a left upper arm fistula placed which has not matured yet. His end-stage kidney disease is secondary to type 2 diabetes mellitus and hypertension. 1. End-stage kidney disease secondary to diabetes and hypertension. The patient has reached need for dialysis. He needs catheter for dialysis at this time. My colleague, Dr. Hayden, tried to place a temporary line but the patient refused to get a line only with local anesthesia and he wants to receive sedation. We will schedule him for IR placement tomorrow. Interventional Radiology is not able to do it today. He understands that by not having a dialysis catheter placed today, he cannot get dialysis. He prefers having it done tomorrow with sedation. 2. Hypertension. His blood pressure is reasonable. no need to not control his blood pressure to target of 120 to 130 at this time, but will do it when is more stable. 3. Type 1 diabetes mellitus. He is on insulin and sliding scale. He was hypoglycemic overnight and he received D5 glucose. 4. Hyponatremia. Serum sodium last night was 123 mEq/L. His symptoms are not because of hyponatremia, definitely are because of the uremia. Recently, his serum sodium also was a little low. Hyponatremia is caused by the inability of his kidneys to excrete free water, while continuing to have fluid intake. Also , volume depletion can play a role. We will start him on normal saline at 100 cc/h for 1 L. We need a serum sodium concentration before and after the fluids. I will also discuss with his primary care physician, Dr. De Paz, to find out what his overall situation is at this point. [id number] #: [id number] DESHAUN
[2019-02-05 14:48] LABS: ABS Basophils 0.1 10^3/ul (0-0.2); ABS Eosinophils 0.2 10^3/ul (0-0.6); ABS Lymphocytes 1.2 10^3/ul (1.0-4.8); ABS Monocytes 0.5 10^3/ul (0-0.8); ABS Neutrophils 6.7 10^3/ul (1.5-7.7); Eosinophil % 2.5 %; Hematocrit 26 % (42-52); Hemoglobin 8.8 g/dL (14.0-18.0); Lymphocyte % 13.3 %; Mean Corpuscular HGB Conc 35 g/dL (31-36); Mean Corpuscular Hemoglobin 29 pg (27-31); Mean Corpuscular Volume 83 fL (80-94); Mean Platelet Volume 7.6 fL (7.4-10.4); Platelet Count 384 10^3/uL (150-450); Red Cell Distribution Width 14 % (10-15); White Blood Count 8.7 10^3/uL (3.5-10.8)
[2019-02-05 14:54] LABS: BUN/Creatinine Ratio 7.9 (8-20); C Reactive Protein 1.56 mg/L (<8.01); Calcium 8.1 mg/dL (8.6-10.3); EGFR African American 10.3 (>60); EGFR Non-African American 8.5 (>60); Magnesium 2.3 mg/dL (1.9-2.7); Potassium 3.6 mmol/L (3.5-5.0)
[2019-02-05 14:58] LABS: INR 0.98 (0.82-1.09)
--- NOTE | 2019-02-05 15:37 | PN ---
Subjective Date of Service: 02/05/19 Interval History: He was irritable and refused to talk to me when I was there as he said too many people asked him questions without helping him. My attending Dr. Segundo managed to talk to him later on. Patient complained severe uncontrolled pain on bilateral flank area. He denied SOB, chest pain, palpitation, still passing urine Objective Active Medications: Acetaminophen (Tylenol Tab*) 650 mg PO Q6H PRN PRN Reason: PAIN - MILD Last Admin: 02/05/19 08:39 Dose: 650 mg Carvedilol (Coreg Tab*) 12.5 mg PO BID [facility] Last Admin: 02/05/19 09:55 Dose: 12.5 mg Dextrose (Dextrose 50% Vial 50 Ml*) 50 ml IV PUSH ONCE PRN PRN Reason: FS < 60 Last Admin: 02/05/19 08:20 Dose: 50 ml Hydralazine HCl (Apresoline Tab*) 50 mg PO BID [facility] Last Admin: 02/05/19 09:55 Dose: 50 mg Sodium Chloride (Ns 0.9% 1000 Ml) 1,000 mls @ 100 mls/hr IV PER RATE [facility] Stop: 02/05/19 20:29 Last Admin: 02/05/19 11:23 Dose: 100 mls/hr Insulin Human Lispro (Humalog*) 0 units SUBCUT [facility]; Protocol Last Admin: 02/05/19 11:25 Dose: Not Given Oxycodone HCl (Roxycodone Tab*) 5 mg PO Q8H PRN PRN Reason: PAIN - SEVERE Last Admin: 02/05/19 09:47 Dose: 5 mg Pantoprazole Sodium (Protonix Tab*) 40 mg PO DAILY [facility] Last Admin: 02/05/19 09:55 Dose: 40 mg Vital Signs - 8 hr 02/05/19 02/05/19 02/05/19 08:00 08:48 09:47 Temperature 97.9 F Pulse Rate 90 Respiratory 20 20 18 Rate Blood Pressure 145/71 (mmHg) O2 Sat by Pulse 100 Oximetry 02/05/19 02/05/19 11:44 11:50 Temperature 98.5 F Pulse Rate 77 Respiratory 16 16 Rate Blood Pressure 139/59 (mmHg) O2 Sat by Pulse 98 Oximetry Oxygen Devices in Use Now: None Result Diagrams: 02/05/19 13:59 02/05/19 13:59 Assess/Plan/Problems-Billing Assessment: 38 y/o male with history of T1DM, ESRD not on dialysis, celiac disease, presented with worsening lower back pain after recent , intermittent nausea and vomitting, we are initiating dialysis while controlling his pain. - Patient Problems (1) Flank pain Current Visit: Yes Status: Acute Priority: High Code(s): R10.9 - UNSPECIFIED ABDOMINAL PAIN SNOMED Code(s): 442787521 Comment: - recent left kidney biopsy with hematoma post procedure - worsening flank pain 1 month after procedure, need to look for other causes, including nephrolithiasis - will do us kidney - pain control with oxycodone prn (2) ESRD (end stage renal disease) Current Visit: Yes Status: Acute Priority: Medium Code(s): N18.6 - END STAGE RENAL DISEASE SNOMED Code(s): 56043554 Comment: diabetic nephropathy has a fistula done 01/19, not yet matured. Coming in with uremic symptoms perm cath tomorrow by interventional radiology no urgent indication for dialysis right now (3) Type 1 diabetes mellitus with nephropathy Current Visit: No Status: Acute Priority: Medium Code(s): E10.21 - TYPE 1 DIABETES MELLITUS WITH DIABETIC NEPHROPATHY SNOMED Code(s): 54340154 Comment: - hypoglycemia this morning, likely due to ESRF status - will stop lantus for today, decrease sliding scale dose - watch BG (4) Hyponatremia Current Visit: Yes Status: Acute Priority: Medium Code(s): E87.1 - HYPO- OSMOLALITY AND HYPONATREMIA SNOMED Code(s): 80883396 Comment: asymptomatic likely due to ESRF status Status and Disposition: Inpatient Medicine. will need to arrange dialysis placement on discharge Attestation Documenting Resident: Kori Tracy Supervising Physician: Mart Segundo Attending/Supervising Physician Comment: Patient with Type1 DM, renal failure, here w/ uremic symptoms, will start dialysis tomorrow when tunneled catheter placed. Will reduce insulin due to ESRD and hypoglycemia. Attestation: This service has been performed in part by a resident under the direction of a teaching physician.I, Mart Segundo, performed the service, or was physically present during the critical, or murillo portions of the service, furnished by the resident. I participated in the management of the patient.
[2019-02-05] MEDS: traMADol TAB* 50 MG PO PRN (22:19)
[2019-02-06] MEDS ORDERED: Insulin LISPRO* 1 UNITS UNIT SUBCUT ONE (03:00)
[2019-02-06] MEDS ORDERED: Insulin GLARGINE(*) 1 UNITS UNIT SUBCUT ONE (03:11)
[2019-02-06] MEDS: oxyCODONE TAB* 5 MG TAB PO PRN ×2 (03:18→09:57)
[2019-02-06] MEDS: Ondansetron INJ* 2 MG/ML VIAL IV PRN ×2 (06:23→17:49)
[2019-02-06 06:43] LABS: BUN/Creatinine Ratio 7.9 (8-20); Calcium 7.9 mg/dL (8.6-10.3); EGFR African American 10.9 (>60); Potassium 3.5 mmol/L (3.5-5.0)
[2019-02-06 07:32] LABS: Hepatitis B Surface Ab Not Immune (Immune); Hepatitis C Antibody Negative (Negative)
[2019-02-06] MEDS: Insulin LISPRO* 1 UNITS UNIT SUBCUT SCH ×4 (09:55→23:39)
[2019-02-06] MEDS: hydrALAZINE TAB* 25 MG PO SCH ×2 (09:56→23:39)
[2019-02-06] MEDS: Pantoprazole TAB * 40 MG TAB PO SCH (09:57)
[2019-02-06] MEDS: Carvedilol TAB* 6.25 MG PO SCH ×2 (09:57→23:39)
[2019-02-06] MEDS ORDERED: NS 0.9% 1000 ML** 1,000 ML IV ONE (10:08)
--- NOTE | 2019-02-06 14:20 | PN ---
Progress Note - Progress Note Date of Service: 02/06/19 SOAP: A request was submitted for tunneled hemodialysis catheter. I and IR nurse Carey Fishman RN went to the patient's bedside to discussed the procedure, do physical examination and acquire informed consent. Subjective: The patient states he will not undergo tunneled hemodialysis catheter without general anesthesia. His current primary physical complaint is bilateral flank pain. Objective: Selected Entries 02/06/19 11:15 Temperature 98.2 F Pulse Rate 79 Respiratory 16 Rate Blood Pressure 168/74 (mmHg) Blood Pressure 97 Mean O2 Sat by Pulse 99 Oximetry Laboratory Tests 02/05/19 02/05/19 02/06/19 13:59 13:59 05:24 WBC 8.7 RBC 3.10 L Hgb 8.8 L Hct 26 L Plt Count 384 INR (Anticoag Therapy) 0.98 BUN 55 H Creatinine 6.95 H Est GFR (Non-Af Amer) 9.0 Mild distress Awake alert oriented 3 Lungs are clear to auscultation bilaterally Regular rate and rhythm. Possible "split S2" Left upper extremity hemodialysis fistula visualized. Assessment: 38-year-old man and acute renal failure requiring percutaneous catheter placement for hemodialysis. As I discussed with Barron, I am not averse to placing his tunnel dialysis catheter while an anesthesiologist provides general anesthesia, but I cannot guarantee an anesthesiologist will be present. I discussed the option of conscious sedation with local lidocaine and the patient refused that option. He states he has "PTSD from prior trauma" and will not tolerate anyone " touching his neck" even if he is sedated. I explained with conscious sedation, though he is still breathing on his own, it is likely he will be sleeping through much of the procedure and hours later he will have little, if any recollection of the procedure. I stated that if I cannot get anesthesiology support and he refuses having the catheter placed this may prevent hemodialysis. I told him that without hemodialysis he may . His response was "if I then I ". I told him that most of my afternoon is free and should he change his mind I will be happy to place a tunneled dialysis catheter with conscious sedation before 4:00 PM. His conversation took place in the presence of Carey Fishman RN and partly in the presence of the patient's floor. Plan: At the time of this note creation, I have been informed that anesthesiology will not be available for nonemergency cases until 3 PM, Saturday, February 09. We will inform the patient of that and offer once again to place a tunneled dialysis catheter with conscious sedation.
[2019-02-06] MEDS: traMADol TAB* 50 MG PO PRN (15:00)
--- NOTE | 2019-02-06 16:51 | CONSULT ---
Consult Consult: DATE OF CONSULTATION 02/06/19 REASON FOR CONSULT: Tunneled dialysis catheter placement HPI: Mr Simmons is a 38 year old man with history of type 1 diabetes and ESRD not on dialysis who was admitted to the hospitalist service on 02/04 with nausea, weakness, and back pain. He recently underwent renal biopsy complicated by retroperitoneal hematoma and AV fistula creation on 01/19 in [place]. He was then transferred to [place] for dialysis, but he did not end up requiring dialysis at that time. Nephrology has been following the patient during this admission and feels he should now undergo hemodialysis, although it is not emergent. The patient insists on "being out" for the procedure due to PTSD. General surgery was consulted for chronic dialysis catheter placement in the OR. The patient complains of back pain, nausea, vomiting, and dizziness. He intermittently has shortness of breath. Denies fevers or chills. He is not cooperative with providing history. PAST MEDICAL HISTORY: type 1 diabetes, ESRD, HTN, GERD, PTSD PAST SURGICAL HISTORY: L wrist AV fistula creation 2018 Home Medications Medication Instructions Recorded Confirmed Type Carvedilol TAB* [Coreg TAB*] 12.5 mg PO BID 01/22/19 02/04/19 History Insulin Glargine,Hum.rec.anlog 20 unit SUBCUT QPM 01/22/19 02/04/19 History [Basaglar Kwikpen] Insulin Lispro [Admelog Solostar] 0 unit SUBCUT .TID-QID 01/22/19 02/04/19 History Pantoprazole TAB * [Protonix TAB*] 40 mg PO DAILY 01/22/19 02/04/19 History hydrALAZINE TAB* [Apresoline TAB*] 50 mg PO BID 01/22/19 02/04/19 History Allergies gluten Allergy (Verified 01/22/19 15:49) Abdominal Pain FAMILY HISTORY: Patient does not know his family history. SOCIAL HISTORY: Patient previously smoked about 1 ppd, but quit about 1 month ago. Denies alcohol use. ROS: 10-point review of systems obtained and pertinent findings in HPI. Patient was not cooperative in completing ROS. PHYSICAL EXAM: Temp Pulse Resp BP Pulse Ox 98.2 F 88 22 173/80 98 02/06/19 15:15 02/06/19 15:15 02/06/19 15:15 02/06/19 15:15 02/06/19 15:15 General: No acute distress. Uncooperative and becomes upset easily. Head: Atraumatic, normocephalic. Eyes: EOMI, no scleral icterus. Mouth: Moist mucous membranes. CV: Regular rate and rhythm. Chest: clear to auscultation bilaterally Abdomen: Soft, nontender, nondistended. Skin: No lesions noted. Extremities: No pedal edema bilaterally. Palpable thrill over L AV fistula. Well -healed incision over L medial wrist. Neuro: Alert and oriented x3. Laboratory Results - last 24 hr 02/05/19 02/06/19 02/06/19 20:29 02:29 05:24 Sodium 125 L Potassium 3.5 Chloride 87 L Carbon Dioxide 29 Anion Gap 9 BUN 55 H Creatinine 6.95 H Est GFR ( Amer) 10.9 Est GFR (Non-Af Amer) 9.0 BUN/Creatinine Ratio 7.9 L Glucose 206 H POC Glucose (mg/dL) 102 H 234 H Calcium 7.9 L Hepatitis B Antibody Hepatitis C Antibody Hepatitis C Ab Index 02/06/19 02/06/19 02/06/19 05:24 06:14 07:27 Sodium Potassium Chloride Carbon Dioxide Anion Gap BUN Creatinine Est GFR ( Amer) Est GFR (Non-Af Amer) BUN/Creatinine Ratio Glucose POC Glucose (mg/dL) 186 H 174 H Calcium Hepatitis B Antibody Not immune A Hepatitis C Antibody Negative Hepatitis C Ab Index 0.04 02/06/19 11:30 Sodium Potassium Chloride Carbon Dioxide Anion Gap BUN Creatinine Est GFR ( Amer) Est GFR (Non-Af Amer) BUN/Creatinine Ratio Glucose POC Glucose (mg/dL) 125 H Calcium Hepatitis B Antibody Hepatitis C Antibody Hepatitis C Ab Index A&P: 38M with ESRD now requiring dialysis. -OR today for placement of chronic dialysis catheter. Discussed risks with patient including but not limited to bleeding, infection. -NPO
[2019-02-06] MEDS ORDERED: D5W 100 ML BAG* 100 ML IV ONE (17:33)
--- NOTE | 2019-02-06 18:26 | PN ---
Progress Note - Progress Note Date of Service: 02/06/19 Note: Cc: ESRD HPI: Barron is a very unfortunate 38-year-old male who came in for uremic symptoms. He refused non tunneled catheter placement with only local anesthesia. Today he refused tunneled catheter placement with conscious sedation only. He wants to have catheter placed only with anesthesia because of his history of PTSD. He is noting good mood at the time of my visit. He feels sick to his stomach but is also hungry. Denies chest pain, shortness of breath or palpitations. Still making urine. Kidney function stable. Labs show a hemoglobin of 8.8, sodium of 125, potassium 3.5, creatinine 6.95, BUN 55 total CO2 29. Physical exam: Blood pressure 173/80, temperature is 98.2, heart rate is 88 bpm, respiratory rate 22, O2 saturation is 98% on room air. Constitutional: Patient is mildly ill, not in good spirits. He is lying horizontally in bed in no respiratory distress Chest is clear to auscultation Heart auscultation shows S1-S2 regular rate and rhythm no murmurs rubs or gallops Extremities: No edema no clubbing or cyanosis Skin: Decreased turgor Assessment and plan 1. End-stage kidney disease secondary to type 1 diabetes mellitus Unfortunately he refuses catheter placement unless it done with general anesthesia. Anesthesiologist was not available today. He will be available only Saturday late in the day. Per his wishes catheter placement is delayed until Saturday. He does not have acute indication for dialysis. We will not accept this patient in our outpatient dialysis unit, because of his behavior. I spoke with his primary care physician who wants to see him immediately after discharge who can help me find an outpatient dialysis unit. 2. Hyponatremiadue to volume depletion and end-stage kidney disease - Normal saline 1 L today, repeat sodium in the morning 3. Volume depletion 4. Type 1 diabetes mellitus per primary team Entered by: Santa Gardner MD Entered Date/Time: 02/06/19 2680 Copy to:
--- NOTE | 2019-02-06 18:26 | PN ---
Subjective Date of Service: 02/06/19 Interval History: Patient still complained of uncontrolled pain mainly in bilateral flank and lower back, left more than right. Also one episode of vomiting this morning. He was offered the option of doing non tunnelled dialysis catheter yesterday under LA, also doing tunnelled dialysis catheter today under iv sedation, he insisted to go for catheter insertion under GA despite multiple conversation. Objective Active Medications: Acetaminophen (Tylenol Tab*) 650 mg PO Q6H PRN PRN Reason: PAIN - MILD Last Admin: 02/05/19 22:18 Dose: 650 mg Carvedilol (Coreg Tab*) 12.5 mg PO BID [facility] Last Admin: 02/06/19 09:57 Dose: 12.5 mg Dextrose (Dextrose 50% Vial 50 Ml*) 50 ml IV PUSH ONCE PRN PRN Reason: FS < 60 Last Admin: 02/05/19 08:20 Dose: 50 ml Hydralazine HCl (Apresoline Tab*) 50 mg PO BID [facility] Last Admin: 02/06/19 09:56 Dose: 50 mg Insulin Glargine (Lantus(*)) 8 units SUBCUT BEDTIME [facility] Insulin Human Lispro (Humalog*) 0 units SUBCUT [facility]; Protocol Last Admin: 02/06/19 17:10 Dose: Not Given Ondansetron HCl (Zofran Inj*) 4 mg IV Q6H PRN PRN Reason: NAUSEA Last Admin: 02/06/19 17:49 Dose: 4 mg Oxycodone HCl (Roxycodone Tab*) 5 mg PO Q6H PRN PRN Reason: PAIN - SEVERE Last Admin: 02/06/19 09:57 Dose: 5 mg Pantoprazole Sodium (Protonix Tab*) 40 mg PO DAILY [facility] Last Admin: 02/06/19 09:57 Dose: 40 mg Prochlorperazine (Compazine Tab*) 10 mg PO Q8H PRN PRN Reason: NAUSEA Last Admin: 02/06/19 10:37 Dose: 10 mg Tramadol HCl (Ultram*) 50 mg PO Q8H PRN PRN Reason: PAIN - MODERATE Last Admin: 02/06/19 15:00 Dose: 50 mg Vital Signs - 8 hr 02/06/19 02/06/19 02/06/19 11:15 15:00 15:02 Temperature 98.2 F Pulse Rate 79 Respiratory 16 16 16 Rate Blood Pressure 168/74 (mmHg) O2 Sat by Pulse 99 Oximetry 02/06/19 02/06/19 15:15 17:10 Temperature 98.2 F Pulse Rate 88 Respiratory 22 16 Rate Blood Pressure 173/80 (mmHg) O2 Sat by Pulse 98 Oximetry Oxygen Devices in Use Now: None Exam: Appearance: irritable, lying on the bed in pain but able to cooperate. Eyes: No Scleral Icterus, PERRLA Ears/Nose/Mouth/Throat: Mucous Membranes Moist Neck: NL Appearance and Movements; NL JVP, Trachea Midline Respiratory: Symmetrical Chest Expansion and Respiratory Effort, Clear to Auscultation, Clear to Percussion Cardiovascular: NL Sounds; No Murmurs; No JVD, No Edema Abdominal: NL Sounds; No Tenderness; No Distention, No Hepatosplenomegaly. bilateral CVA tenderness Spine: No spinal tenderness, severe tenderness on paraspinal areas , patient screamed even I touched it. Skin: No Rash or Ulcers Neurological: Alert and Oriented x 3 - Nutrition: Malnutrition Diagnosis/Plan Malnutrition Assessment by Registered Dietitian: Malnutrition Assessment Clinical Characteristics Acute,Severe Malnutrition Assessment: Inadequate Oral Intake - Pt reports a poor Criteria appetite x1 wk; consumed 25% majority of meals, currently NPO - Anticipate meeting <50% nutrient needs >5 days (severe) Unintentional Weight Loss - Pt reports unintentional wt loss x1 wk; current wt 125lb, UBW 130lb x1 wk ago - 3.8% loss x1 wk (severe) Malnutrition Assessment: Nutritional Supplementals/Nourishments - Pt not Interventions amenable to nourishments/supplements at this time; encourage pt to prioritize protein containing foods at meal times and request foods as desired; pt receptive Glycemic Control - Recommend advancing diet to consistent carb as able; will continue to monitor BG/FS in the setting of T1DM Labs - Recommend advancing diet to renal as able ; will continue to monitor labs closely in the setting of ESRD w/ plans for HD GI Related - Recommend continuing pain mgmt and antiemetic PRN; will monitor GI s/sx for impact on intake Education - Pt denies need for consistent carb diet education at this time; provided pt w/ renal diet education; see Nutrition Education under Patient Care tab for details; will remain available to answer questions regarding nutrition education as able Malnutrition Assessment: Goals 1) Adequate po intake to support lean body mass and hydration status 2) Improve fluid/electrolyte balance w/ adequate po intake, restriction, and medical intervention in the setting of ESRD 3) Improve glycemic control w/ adequate po and consistent carb intake in the setting of T1DM 4) Maintain bowel regularity w/ adequate po intake w/o development of diarrhea/constipation 5) Questions regarding nutrition education/diet will be answered prior to d/c Result Diagrams: 02/05/19 13:59 02/06/19 05:24 Assess/Plan/Problems-Billing Assessment: 38 y/o male with history of T1DM, ESRD not on dialysis, celiac disease, presented with worsening lower back pain after recent , intermittent nausea and vomitting, we are initiating dialysis while controlling his pain. - Patient Problems (1) Flank pain Current Visit: Yes Status: Acute Priority: High Code(s): R10.9 - UNSPECIFIED ABDOMINAL PAIN SNOMED Code(s): 955591754 Comment: - recent left kidney biopsy with hematoma post procedure - worsening flank pain 1 month after procedure, differential nephrolithiasis, renal osteodystrophy - US kidney showing right 6mm kidney stone, no obstruction seen - will check calcium/phosphate tomorrow - pain control with oxycodone prn (2) ESRD (end stage renal disease) Current Visit: Yes Status: Acute Priority: Medium Code(s): N18.6 - END STAGE RENAL DISEASE SNOMED Code(s): 48792352 Comment: diabetic nephropathy has a fistula done 01/19, not yet matured. Coming in with uremic symptoms perm cath tomorrow by interventional radiology no urgent indication for dialysis right now (3) Type 1 diabetes mellitus with nephropathy Current Visit: No Status: Acute Priority: Medium Code(s): E10.21 - TYPE 1 DIABETES MELLITUS WITH DIABETIC NEPHROPATHY SNOMED Code(s): 28658402 Comment: - hypoglycemia , likely due to ESRF status - will stop lantus today as fasting for procedure, will restart tomorrow - watch BG (4) Hyponatremia Current Visit: Yes Status: Acute Priority: Medium Code(s): E87.1 - HYPO- OSMOLALITY AND HYPONATREMIA SNOMED Code(s): 10020201 Comment: asymptomatic likely due to ESRF status Status and Disposition: Inpatient Medicine. will need to arrange dialysis placement on discharge Attestation Documenting Resident: Kori Tracy Supervising Physician: Mart [place] Attending/Supervising Physician Comment: 38 yo w/ uremia, ESRD, requires start dialysis imminently. Patient refused dialysis catheter at bedside w/ local, and then catheter under moderate sedation. Discussed w/ Dr. Sherman, she will place catheter under deep sedation or GETA. Discussed with Dr. Medrano also. Attestation: This service has been performed in part by a resident under the direction of a teaching physician.I, Mart Segundo, performed the service, or was physically present during the critical, or murillo portions of the service, furnished by the resident. I participated in the management of the patient.
[2019-02-06] MEDS ORDERED: Heparin VIAL(*) 5000 UNITS/ML VIAL (FIVE THOUSAND) ONE (20:27)
[2019-02-06] MEDS ORDERED: Lidocaine 1% w EPI 1:100,000* MDV 20 ML VIAL ONE (20:28)
[2019-02-06] MEDS ORDERED: Heparin DIALYSIS ONLY(*) 1,000 UNITS/ML VIAL ONE (20:35)
[2019-02-06] MEDS ORDERED: fentaNYL* 50 MCG/ML 2 ML VIAL (100 MCG VIAL) ONE (20:39)
[2019-02-06] MEDS ORDERED: Midazolam* 1 MG/ML 2 ML VIAL (2 MG) ONE ×2 (20:39→21:00)
[2019-02-06 21:24] LABS: Hepatitis B Surface Antigen Nonreactive (Nonreactive)
[2019-02-06] MEDS ORDERED: Propofol* 10 MG/ML 20 ML BTL ONE (21:43)
--- NOTE | 2019-02-06 22:25 | BRIEFOPN ---
Brief Operative/Procedure Note - Operation Details Pre-Op Diagnosis: ESRD Post-Op Diagnosis: Same Procedures: Tunneled dialysis catheter placement Surgeon(s)/Proceduralists: Lucia Sherman MD Anesthesia: MAC, Local Estimated Blood Loss: 30 ml Findings: Tip of dialysis catheter in SVC at atriocaval junction (confirmed with fluoro). Complications: None
[2019-02-06] MEDS ORDERED: Ondansetron INJ* 2 MG/ML VIAL ONE (22:35)
[2019-02-06] MEDS ORDERED: Ondansetron INJ* 2 MG/ML VIAL IV PRN (22:44)
[2019-02-06] MEDS ORDERED: Naloxone* 0.4 MG/ML 1 ML VIAL IV PRN (22:44)
[2019-02-06] MEDS: Acetaminophen TAB* 325 MG PO PRN (23:38)
[2019-02-06] MEDS: Insulin GLARGINE(*) 1 UNITS UNIT SUBCUT SCH (23:39)
[2019-02-07] MEDS: oxyCODONE TAB* 5 MG TAB PO PRN ×3 (00:22→15:42)
[2019-02-07] MEDS: traMADol TAB* 50 MG PO PRN ×3 (04:31→21:27)
[2019-02-07] MEDS: Pantoprazole TAB * 40 MG TAB PO SCH (07:56)
[2019-02-07] MEDS: hydrALAZINE TAB* 25 MG PO SCH ×2 (07:56→21:27)
[2019-02-07] MEDS: Carvedilol TAB* 6.25 MG PO SCH ×2 (07:56→21:27)
[2019-02-07 09:00] LABS: ABS Basophils 0.1 10^3/ul (0-0.2); ABS Eosinophils 0.3 10^3/ul (0-0.6); ABS Lymphocytes 1.1 10^3/ul (1.0-4.8); ABS Monocytes 0.4 10^3/ul (0-0.8); ABS Neutrophils 6.8 10^3/ul (1.5-7.7); Eosinophil % 3.3 %; Hematocrit 26 % (42-52); Hemoglobin 8.7 g/dL (14.0-18.0); Lymphocyte % 12.5 %; Mean Corpuscular HGB Conc 34 g/dL (31-36); Mean Corpuscular Hemoglobin 28 pg (27-31); Mean Corpuscular Volume 83 fL (80-94); Mean Platelet Volume 7.6 fL (7.4-10.4); Platelet Count 375 10^3/uL (150-450); Red Cell Distribution Width 14 % (10-15); White Blood Count 8.7 10^3/uL (3.5-10.8)
[2019-02-07 09:04] LABS: Albumin 3.2 g/dL (3.2-5.2); Calcium 8.4 mg/dL (8.6-10.3); Potassium 3.8 mmol/L (3.5-5.0); Total Bilirubin 0.3 mg/dL (0.2-1.0)
[2019-02-07 09:10] LABS: Albumin/Globulin Ratio 1.1 (1-3); BUN/Creatinine Ratio 7.3 (8-20); EGFR African American 11.3 (>60); EGFR Non-African American 9.4 (>60); Phosphorus 5.2 mg/dL (2.5-5.0); Total Protein 6.2 g/dL (6.4-8.9)
[2019-02-07] MEDS: Insulin LISPRO* 1 UNITS UNIT SUBCUT SCH ×4 (09:34→21:28)
[2019-02-07] MEDS ORDERED: Senna TAB 8.6 mg* TAB PO PRN (09:46)
--- NOTE | 2019-02-07 10:48 | PN ---
Progress Note - Progress Note Date of Service: 02/07/19 Note: Patient complains of pain at catheter site but tolerable. Tolerating a diet. Temp Pulse Resp BP Pulse Ox 97.8 F 81 16 150/77 99 02/07/19 04:57 02/07/19 04:57 02/07/19 07:55 02/07/19 04:57 02/07/19 04:57 General: No acute distress. Lying in bed. Neck: Neck stab incision clean, dry, intact. Catheter exit site clean and dry. A&P 38M with ESRD s/p tunneled dialysis catheter placement. POD 1. -Catheter ready to use for dialysis. -Please call with questions.
[2019-02-07 12:40] LABS: Hepatitis Be Antigen Negative (Negative)
[2019-02-07 12:59] LABS: Hepatitis Be Antibody Negative (Negative)
--- NOTE | 2019-02-07 13:34 | OP ---
OPERATIVE REPORT: DATE OF OPERATION: 02/06/19 DATE OF : 82 SURGEON: Lucia Sherman MD ANESTHESIA: MAC, local. PRE-OP DIAGNOSIS: End stage renal disease. POST-OP DIAGNOSIS: End stage renal disease. OPERATIVE PROCEDURE: Placement of tunneled dialysis catheter. ESTIMATED BLOOD LOSS: 30 mL INDICATION: Barron Simmons is a 38-year old man with a history of type 1 diabetes and end stage renal disease, not yet on hemodialysis. He was admitted to the hospitalist service with uremic symptoms. He had a fistula placed at the beginning of the month, but it is not yet mature for dialysis. The patient reports PTSD and is unable to tolerate a procedure with conscious sedation alone. He requested deep sedation or general anesthesia for the placement of a tunneled dialysis catheter. Written consent was obtained from the patient for the procedure. DESCRIPTION OF PROCEDURE: The patient was brought to the OR and placed in the supine position on the OR table. SCDs were placed. MAC anesthesia was given The right upper chest and right neck were prepped and draped in the usual sterile fashion. A timeout confirming the patient's name, the patient's date of , and procedure was called. Lidocaine 1% with epinephrine was injected into the skin overlying the right internal jugular vein. Using ultrasound guidance, an 18-gauge needle was used to cannulate the vein. Venous blood could easily be aspirated, but the wire could not be advanced more than about 5 or 6 cm. After 3 attempts, the right internal jugular was again cannulated with an 18-gauge needle, and this time the wire advanced easily. Fluoroscopy was used to confirm correct position of the wire in the SVC. A 15.5 Fr dialysis catheter, 28 cm in length was chosen based on the patient's body habitus. Lidocaine with epinephrine was used for local anesthetic over the right chest where the catheter would be tunneled. A skin ada was made in the right upper chest and at the wire. The tunneler was used to pass the tip of the catheter through the subcutaneous tissue of the right upper chest through the neck incision. The internal jugular vein was then serially dilated starting with a 12- Telugu dilator, then 14-Telugu, then 16-Telugu with peel-away sheath. The wire and dilator were removed. The catheter was placed into the peel-away sheath, and the catheter was advanced into the vein. There was blood return through both ports of the catheter. The catheter was flushed with saline, then heparin. The catheter was sutured in place with 3-0 Prolene. The neck incision was closed with 4-0 Vicryl and covered with surgical glue. A sterile dressing was placed over the dialysis catheter. The patient tolerated the procedure well. He was brought to recovery in stable condition. [id number]/[facility] #: [id number] DESHAUN
--- NOTE | 2019-02-07 15:20 | PN ---
Progress Note - Progress Note Date of Service: 02/07/19 Note: Chief complaint: End-stage renal disease History of present illness: Barron had a PermCath placed last night by general surgery with general anesthesia. At the time of my exam he is lying flat in bed in no acute distress. I asked him who placed his AV fistula in the left wrist and he does not remember whom but he remembers that it was done when he was in the hospital in [place]. He does not remember the name of the ground support agent or if he was seen by a ground support agent during that hospitalization. Of note, he had a kidney biopsy when he was hospitalized in [place]. Per the discussion that I had yesterday with his primary care physician Dr. Escoto, patient has a very well known history of nonadherence to medical treatment. He is not very cooperative during this hospitalization. He was recently hospitalized in [place] for suicidal ideation. I told him today that he will need to cut back on fluids because he still has hyponatremia and that this can become quite serious, with the risk of causing seizures, if he continues to drink a lot of fluids. He states that he does not want to cut back on the fluids. Then I told him we will give him normal saline by vein and he again states that he does not want to get any more IVs. During all this conversation he continues to lye in bed without making eye contact. Review of systems: Denies chest pain, shortness of breath, palpitations. He endorses nausea without vomiting overnight. Labs from today: Hemoglobin 8.7, white blood cell count 8.7, platelets 375, sodium is stable at 126, potassium 3.8, total CO2 27, BUN is 14 9, creatinine 6.7 with an estimated GFR of 9.4 mL/min, phosphorus 5.2, calcium 8.4, albumin 3.2, corrected calcium 9.04. Medications: Carvedilol 12.5 mg by mouth twice a day Hydralazine 50 mg by mouth twice a day Insulin glargine 8 units subcutaneously at bedtime Insulin lispro sliding scale Zofran 4 mg IV every 6 hours when necessary nausea Oxycodone 5 mg by mouth every 6 hours when necessary for pain Protonix 40 mg daily Compazine 10 mg every 8 hours as needed for pain Senokot 2 tablets by mouth bedtime as needed for constipation Tramadol 50 mg by mouth every 8 hours for pain as needed Physical exam: Blood pressure 155/74, oxygen saturation 98% on room air, respiration rate is 14 /min Constitutional: Chronically ill person, lying in bed in no acute distress Chest is clear to auscultation Heart shows S1-S2 regular rate and rhythm no murmurs rubs or gallops, no lower extremities edema. Left wrist AVF with bruit and thrill but not mature yet. Abdomen: Soft, nontender and nondistended Skin with decreased turgor Neurological: Speech fluent but mumbled, no asterixis. Assessment and plan: Barron is a very unfortunate 38-year-old male who has a history of type 1 diabetes mellitus since he was 4 years old. He presents with end-stage kidney disease. He recently had a left wrist AV fistula placed in [place]. Patient does not know if he had seen a ground support agent before. 1. End-stage renal disease - Patient does not need emergent dialysis at this time. His potassium and serum bicarbonate are within normal limits. He is not volume overloaded. 2. Because of his history of nonadherence to treatment, poor cooperation with his providers during this hospitalization, lack of interest in his care, bursts of aggravation during conversations regarding his treatments, my partner and I have reservations regarding his acceptance in [facility] outpatient dialysis unit. 3. Hyponatremia - Due to excess free water - I would institute free water restriction of about 1.5 L per day 4. Volume depletion - I would continue normal saline 100 cc/h 1 L 5. Depression. We do not have any records from his previous psychiatric hospitalization and he is not on any medications for depression. We are not aware him following with a therapist either. 6. HTN although not perfect, BP is reasonable for him and I would not make any changes now. 7. Anemia of ESRD. Please get iron studies tomorrow with labs: ferritin, iron , TSAT. If iron stores are normal, will start TERESO, if low , will try iron replacement which is done iv for ESRD pts whos GI absorption of iron is very poor as a result of accompanying inflammation.
--- NOTE | 2019-02-07 16:15 | PN ---
Subjective Date of Service: 02/07/19 Interval History: Patient complained of lower back pain improving with pain med, but not resolving. Also complaining of right tunnelled catheter site pain. Discussed with him about further dialysis plan, Explained to him the barriers we are encountering to get a dialysis chair for him in this hospital [facility] dialysis center. And the barriers we are facing in order to get a dialysis chair for him in [place]. He basically needs to see a photoengraving apprentice in that dialysis center's network outpatient before getting a dialysis chair. Offered the option of transferring to [facility], so that he can seen by a photoengraving apprentice in their network and get a dialysis chair on discharge. Patient agreed with current plan. Currently [facility] has no bed available, we will transfer him there for dialysis once bed available. Objective Active Medications: Acetaminophen (Tylenol Tab*) 650 mg PO Q6H PRN PRN Reason: PAIN - MILD Last Admin: 02/06/19 23:38 Dose: 650 mg Carvedilol (Coreg Tab*) 12.5 mg PO BID [facility] Last Admin: 02/07/19 07:56 Dose: 12.5 mg Dextrose (Dextrose 50% Vial 50 Ml*) 50 ml IV PUSH ONCE PRN PRN Reason: FS < 60 Last Admin: 02/05/19 08:20 Dose: 50 ml Hydralazine HCl (Apresoline Tab*) 50 mg PO BID [facility] Last Admin: 02/07/19 07:56 Dose: 50 mg Insulin Glargine (Lantus(*)) 8 units SUBCUT BEDTIME [facility] Last Admin: 02/06/19 23:39 Dose: 8 unit Insulin Human Lispro (Humalog*) 0 units SUBCUT ACHS [facility]; Protocol Last Admin: 02/07/19 12:13 Dose: 2 units Ondansetron HCl (Zofran Inj*) 4 mg IV Q6H PRN PRN Reason: NAUSEA Last Admin: 02/06/19 17:49 Dose: 4 mg Oxycodone HCl (Roxycodone Tab*) 5 mg PO Q6H PRN PRN Reason: PAIN - SEVERE Last Admin: 02/07/19 15:42 Dose: 5 mg Pantoprazole Sodium (Protonix Tab*) 40 mg PO DAILY [facility] Last Admin: 02/07/19 07:56 Dose: 40 mg Prochlorperazine (Compazine Tab*) 10 mg PO Q8H PRN PRN Reason: NAUSEA Last Admin: 02/07/19 07:56 Dose: 10 mg Senna (Senokot 8.6 Mg Tab*) 2 tab PO BEDTIME PRN PRN Reason: CONSTIPATION Last Admin: 02/07/19 11:37 Dose: 2 tab Tramadol HCl (Ultram*) 50 mg PO Q8H PRN PRN Reason: PAIN - MODERATE Last Admin: 02/07/19 11:38 Dose: 50 mg Vital Signs - 8 hr 02/07/19 02/07/19 02/07/19 09:00 11:37 11:38 Temperature 98.3 F Pulse Rate 84 Respiratory 16 14 14 Rate Blood Pressure 162/80 (mmHg) O2 Sat by Pulse 97 Oximetry 02/07/19 02/07/19 02/07/19 11:45 15:04 15:42 Temperature 97.5 F Pulse Rate 78 Respiratory 14 16 16 Rate Blood Pressure 155/74 (mmHg) O2 Sat by Pulse 98 Oximetry Oxygen Devices in Use Now: None Exam: Appearance: NAD, lying on bed comfortably Eyes: No Scleral Icterus, PERRLA Ears/Nose/Mouth/Throat: Mucous Membranes Moist Neck: NL Appearance and Movements; NL JVP, Trachea Midline right tunnelled dialysis catheter in situ, no bleeding, Respiratory: Symmetrical Chest Expansion and Respiratory Effort, Clear to Auscultation, Clear to Percussion Cardiovascular: NL Sounds; No Murmurs; No JVD, No Edema Abdominal: NL Sounds; No Tenderness; No Distention, No Hepatosplenomegaly. bilateral CVA tenderness Spine: No spinal tenderness, severe tenderness on paraspinal areas , patient screamed even I touched it. Skin: No Rash or Ulcers Neurological: Alert and Oriented x 3 - Nutrition: Malnutrition Diagnosis/Plan Malnutrition Assessment by Registered Dietitian: Malnutrition Assessment Clinical Characteristics Acute,Severe Malnutrition Assessment: Inadequate Oral Intake - Pt reports a poor Criteria appetite x1 wk; consumed 25% majority of meals, currently NPO - Anticipate meeting <50% nutrient needs >5 days (severe) Unintentional Weight Loss - Pt reports unintentional wt loss x1 wk; current wt 125lb, UBW 130lb x1 wk ago - 3.8% loss x1 wk (severe) Malnutrition Assessment: Nutritional Supplementals/Nourishments - Pt not Interventions amenable to nourishments/supplements at this time; encourage pt to prioritize protein containing foods at meal times and request foods as desired; pt receptive Glycemic Control - Recommend advancing diet to consistent carb as able; will continue to monitor BG/FS in the setting of T1DM Labs - Recommend advancing diet to renal as able ; will continue to monitor labs closely in the setting of ESRD w/ plans for HD GI Related - Recommend continuing pain mgmt and antiemetic PRN; will monitor GI s/sx for impact on intake Education - Pt denies need for consistent carb diet education at this time; provided pt w/ renal diet education; see Nutrition Education under Patient Care tab for details; will remain available to answer questions regarding nutrition education as able Malnutrition Assessment: Goals 1) Adequate po intake to support lean body mass and hydration status 2) Improve fluid/electrolyte balance w/ adequate po intake, restriction, and medical intervention in the setting of ESRD 3) Improve glycemic control w/ adequate po and consistent carb intake in the setting of T1DM 4) Maintain bowel regularity w/ adequate po intake w/o development of diarrhea/constipation 5) Questions regarding nutrition education/diet will be answered prior to d/c Result Diagrams: 02/08/19 07:22 02/08/19 07:22 Assess/Plan/Problems-Billing Assessment: 38 y/o male with history of T1DM, ESRD not on dialysis, depression, presented with worsening lower back pain , intermittent nausea and vomitting, currently planning to initiate dialysis while controlling his pain. - Patient Problems (1) Flank pain Current Visit: Yes Status: Acute Priority: High Code(s): R10.9 - UNSPECIFIED ABDOMINAL PAIN SNOMED Code(s): 229566834 Comment: - recent left kidney biopsy with hematoma post procedure - worsening flank pain 1 month after procedure, differential nephrolithiasis, renal osteodystrophy - US kidney showing right 6mm kidney stone, no obstruction seen - pain control with oxycodone Q6h prn (2) ESRD (end stage renal disease) Current Visit: Yes Status: Acute Priority: Medium Code(s): N18.6 - END STAGE RENAL DISEASE SNOMED Code(s): 37109586 Comment: diabetic nephropathy has a fistula done 01/19, not yet matured. Coming in with uremic symptoms tunnelled dialysis catheter was inserted yesterday with no complications so far no urgent indication for dialysis right now, will start dialysis on Saturday if he stays here; if he got a bed in [facility] before Saturday, will initiate there instead (3) Type 1 diabetes mellitus with nephropathy Current Visit: No Status: Acute Priority: Medium Code(s): E10.21 - TYPE 1 DIABETES MELLITUS WITH DIABETIC NEPHROPATHY SNOMED Code(s): 63939212 Comment: - hypoglycemia , likely due to ESRF status - cut back glargine to 8U right now - watch BG (4) Hyponatremia Current Visit: Yes Status: Acute Priority: Medium Code(s): E87.1 - HYPO- OSMOLALITY AND HYPONATREMIA SNOMED Code(s): 36453248 Comment: asymptomatic likely dilutional hyponatremia due to ESRF status restrict free water intake will recheck tomorrow Status and Disposition: Inpatient Medicine. Currently is in waiting list for [facility]. He will transfer once bed available. At the meantime, we will continue medical management, and initiate dialysis on saturday if he remains here. Attestation Documenting Resident: Kori Tracy Supervising Physician: Mart Segundo Attending/Supervising Physician Comment: Patient tolerated insertion of dialysis catheter. He is willing to be transferred or stay here for dialysis. Discussed with transfer center. Plan is to talk directly with nephrology at [facility], since they are affiliated with the [place] [facility]. No emergent need for dialysis. Obtained records from [facility] of last 1 month of admissions/procedures/discharges, placed on chart. Attestation: This service has been performed in part by a resident under the direction of a teaching physician.I, Mart Segundo, performed the service, or was physically present during the critical, or murillo portions of the service, furnished by the resident. I participated in the management of the patient.
[2019-02-07] MEDS: Ondansetron INJ* 2 MG/ML VIAL IV PRN (16:59)
[2019-02-07] MEDS: Insulin GLARGINE(*) 1 UNITS UNIT SUBCUT SCH (21:29)
[2019-02-08] MEDS: oxyCODONE TAB* 5 MG TAB PO PRN ×3 (00:48→20:20)
[2019-02-08] MEDS: Ondansetron INJ* 2 MG/ML VIAL IV PRN (06:44)
[2019-02-08] MEDS: traMADol TAB* 50 MG PO PRN ×2 (06:44→17:17)
[2019-02-08 07:40] LABS: ABS Basophils 0.1 10^3/ul (0-0.2); ABS Eosinophils 0.3 10^3/ul (0-0.6); ABS Lymphocytes 1.1 10^3/ul (1.0-4.8); ABS Monocytes 0.7 10^3/ul (0-0.8); Eosinophil % 3.4 %; Hematocrit 24 % (42-52); Hemoglobin 8.3 g/dL (14.0-18.0); Lymphocyte % 10.4 %; Mean Corpuscular HGB Conc 34 g/dL (31-36); Mean Corpuscular Hemoglobin 28 pg (27-31); Mean Corpuscular Volume 83 fL (80-94); Mean Platelet Volume 7.6 fL (7.4-10.4); Nucleated Red Blood Cells % 0.1; Platelet Count 372 10^3/uL (150-450); Red Blood Count 2.93 10^6 /uL (4.18-5.48); Red Cell Distribution Width 14 % (10-15); White Blood Count 10.2 10^3/uL (3.5-10.8)
[2019-02-08 07:49] LABS: Anion Gap 7 mmol/L (2-11); CO2 Carbon Dioxide 26 mmol/L (22-32); Calcium 8.2 mg/dL (8.6-10.3); Chloride 89 mmol/L (101-111); Potassium 3.7 mmol/L (3.5-5.0); Sodium 122 mmol/L (135-145)
[2019-02-08 07:55] LABS: BUN/Creatinine Ratio 7.8 (8-20); Blood Urea Nitrogen 51 mg/dL (6-24); EGFR African American 11.6 (>60); EGFR Non-African American 9.6 (>60); Glucose 175 mg/dL (70-100)
[2019-02-08 08:18] LABS: Total Iron Binding Capacity 239 mcg/dL (250-450); Transferrin 171 mg/dL (203-362)
[2019-02-08 08:24] LABS: % Iron Saturation 8 % (15-55); Iron < 20 ug/dL (50-212)
[2019-02-08 08:35] LABS: Ferritin 37.9 ng/mL (24-336)
[2019-02-08] MEDS: Insulin LISPRO* 1 UNITS UNIT SUBCUT SCH ×4 (08:53→20:31)
[2019-02-08] MEDS: Pantoprazole TAB * 40 MG TAB PO SCH (08:53)
[2019-02-08] MEDS: hydrALAZINE TAB* 25 MG PO SCH ×2 (08:53→20:16)
[2019-02-08] MEDS: Carvedilol TAB* 6.25 MG PO SCH ×2 (08:53→20:16)
--- NOTE | 2019-02-08 11:22 | PN ---
Progress Note - Progress Note Date of Service: 02/08/19 Note: Chief complaint: End-stage renal disease History of present illness: Barron is not feeling well with worsening nausea and vomiting. He denies chest pain, shortness of breath, palpitations, cough or sputum production Labs from today: White blood cell count 10.2, hemoglobin 8.3, platelets 372, serum sodium concentration is severely decreased at 122, total CO2 26, BUN 51, creatinine 6.55, calculated calcium 9.6, iron is less than 20, T sat is 8%, ferritin is 37.9. Medications: Carvedilol 12.5 mg by mouth twice a day Hydralazine 50 mg by mouth twice a day Insulin glargine 8 units subcutaneously at bedtime Insulin lispro sliding scale Zofran 4 mg IV every 6 hours when necessary nausea Oxycodone 5 mg by mouth every 6 hours when necessary for pain Protonix 40 mg daily Compazine 10 mg every 8 hours as needed for pain Senokot 2 tablets by mouth bedtime as needed for constipation Tramadol 50 mg by mouth every 8 hours for pain as needed Physical exam: Blood pressure 178/91, oxygen saturation 97% on room air, heart rate is 86 bpm, temperature 97.1F Constitutional: Chronically ill person, lying in bed in no acute distress Chest is clear to auscultation Heart shows S1-S2 regular rate and rhythm no murmurs rubs or gallops, no lower extremities edema. Left wrist AVF with bruit and thrill but not mature yet. Abdomen: Soft, mildly tender, non-distended Skin with decreased turgor Neurological: Speech fluent but mumbled, no asterixis. Assessment and plan: Barron is a very unfortunate 38-year-old male who has a history of type 1 diabetes mellitus since he was 4 years old. He presents with end-stage kidney disease. He recently had a left wrist AV fistula placed in [place]. Patient does not know if he had seen a sales & service associate before. 1. Hyponatremia - Due to excess free water - Fluid restriction to 1 L per day. Current Is and Os show that he is -580 cc fluid balance. These are not possible given that his hyponatremia is getting worse. If he was in negative balance his sodium concentration would have been a little higher. - He can have nausea because of low serum sodium as well. - Recommend 100 cc bolus of 3% hypertonic saline to prevent further decline of her serum sodium concentration which he puts him at risk of seizures. - 2. End-stage renal disease - Patient does not need emergent dialysis at this time. His potassium and serum bicarbonate are within normal limits. He is not volume overloaded. 3. Volume depletion - I would continue normal saline 100 cc/h 1 L 4. HTN blood pressure is worse than yesterday probably because of discomfort as well. I would add nifedipine XL 30 mg daily. 5. Anemia of ESRD and iron deficiency - Iron deficiency: Start Feraheme 510 mg iv x1. Should get another dose in 3- 7 days.
[2019-02-08] MEDS ORDERED: Sodium Chloride 3% HYPERTONIC* 500 ML IV ONE (16:42)
[2019-02-08] MEDS ORDERED: NS 0.9% 1000 ML** 1,000 ML IV SCH (16:45)
--- NOTE | 2019-02-08 16:50 | PN ---
Subjective Date of Service: 02/08/19 Interval History: Patient has no new complaints. He was vomiting this AM, not this afternoon. Has poor appetite. Pain is under control. Dr. Gardner advised less fluid intake, but patient states he is not having much PO. Family History: Unchanged from Admission Social History: Unchanged from Admission Past Medical History: Unchanged from Admission Objective Active Medications: Acetaminophen (Tylenol Tab*) 650 mg PO Q6H PRN PRN Reason: PAIN - MILD Last Admin: 02/06/19 23:38 Dose: 650 mg Carvedilol (Coreg Tab*) 12.5 mg PO BID [facility] Last Admin: 02/08/19 08:53 Dose: 12.5 mg Dextrose (Dextrose 50% Vial 50 Ml*) 50 ml IV PUSH ONCE PRN PRN Reason: FS < 60 Last Admin: 02/05/19 08:20 Dose: 50 ml Hydralazine HCl (Apresoline Tab*) 50 mg PO BID [facility] Last Admin: 02/08/19 08:53 Dose: 50 mg Sodium Chloride (Ns 0.9% 1000 Ml) 1,000 mls @ 100 mls/hr IV PER RATE [facility] Sodium Chloride (Hypertonic) (Hypertonic Sod Chloride 3%*) 500 mls @ 0 mls/hr IV ONCE ONE; Protocol Stop: 02/08/19 16:43 Insulin Glargine (Lantus(*)) 8 units SUBCUT BEDTIME [facility] Last Admin: 02/07/19 21:29 Dose: 8 unit Insulin Human Lispro (Humalog*) 0 units SUBCUT ACHS [facility]; Protocol Last Admin: 02/08/19 12:14 Dose: 3 units Nifedipine (Procardia Xl Tab*) 30 mg PO DAILY [facility] Ondansetron HCl (Zofran Inj*) 4 mg IV Q6H PRN PRN Reason: NAUSEA Last Admin: 02/08/19 06:44 Dose: 4 mg Oxycodone HCl (Roxycodone Tab*) 5 mg PO Q6H PRN PRN Reason: PAIN - SEVERE Last Admin: 02/08/19 10:59 Dose: 5 mg Pantoprazole Sodium (Protonix Tab*) 40 mg PO DAILY [facility] Last Admin: 02/08/19 08:53 Dose: 40 mg Prochlorperazine (Compazine Tab*) 10 mg PO Q8H PRN PRN Reason: NAUSEA Last Admin: 02/08/19 11:44 Dose: 10 mg Senna (Senokot 8.6 Mg Tab*) 2 tab PO BEDTIME PRN PRN Reason: CONSTIPATION Last Admin: 02/07/19 11:37 Dose: 2 tab Tramadol HCl (Ultram*) 50 mg PO Q8H PRN PRN Reason: PAIN - MODERATE Last Admin: 02/08/19 06:44 Dose: 50 mg Vital Signs - 8 hr 02/08/19 02/08/19 02/08/19 10:38 10:59 11:11 Temperature 36.2 C Pulse Rate 86 Respiratory 18 16 18 Rate Blood Pressure 178/91 (mmHg) O2 Sat by Pulse 97 Oximetry Oxygen Devices in Use Now: None Appearance: alert, no distress Eyes: No Scleral Icterus Ears/Nose/Mouth/Throat: Clear Oropharnyx Neck: NL Appearance and Movements; NL JVP, - - catheter RT neck Respiratory: Symmetrical Chest Expansion and Respiratory Effort, Clear to Auscultation Cardiovascular: NL Sounds; No Murmurs; No JVD Abdominal: NL Sounds; No Tenderness; No Distention Neurological: Alert and Oriented x 3, - - more bright today Lines/Tubes/Other Access: Clean, Dry and Intact Peripheral IV Nutrition: Taking PO's - Nutrition: Malnutrition Diagnosis/Plan Malnutrition Assessment by Registered Dietitian: Malnutrition Assessment Clinical Characteristics Acute,Severe Malnutrition Assessment: Inadequate Oral Intake - Pt reports a poor Criteria appetite x1 wk; consumed 25% majority of meals, currently NPO - Anticipate meeting <50% nutrient needs >5 days (severe) Unintentional Weight Loss - Pt reports unintentional wt loss x1 wk; current wt 125lb, UBW 130lb x1 wk ago - 3.8% loss x1 wk (severe) Malnutrition Assessment: Nutritional Supplementals/Nourishments - Pt not Interventions amenable to nourishments/supplements at this time; encourage pt to prioritize protein containing foods at meal times and request foods as desired; pt receptive Glycemic Control - Recommend advancing diet to consistent carb as able; will continue to monitor BG/FS in the setting of T1DM Labs - Recommend advancing diet to renal as able ; will continue to monitor labs closely in the setting of ESRD w/ plans for HD GI Related - Recommend continuing pain mgmt and antiemetic PRN; will monitor GI s/sx for impact on intake Education - Pt denies need for consistent carb diet education at this time; provided pt w/ renal diet education; see Nutrition Education under Patient Care tab for details; will remain available to answer questions regarding nutrition education as able Malnutrition Assessment: Goals 1) Adequate po intake to support lean body mass and hydration status 2) Improve fluid/electrolyte balance w/ adequate po intake, restriction, and medical intervention in the setting of ESRD 3) Improve glycemic control w/ adequate po and consistent carb intake in the setting of T1DM 4) Maintain bowel regularity w/ adequate po intake w/o development of diarrhea/constipation 5) Questions regarding nutrition education/diet will be answered prior to d/c Result Diagrams: 02/08/19 07:22 02/08/19 07:22 Assess/Plan/Problems-Billing Assessment: 38 y/o male with history of T1DM, ESRD not on dialysis, depression, presented with worsening lower back pain , intermittent nausea and vomitting, currently planning to initiate dialysis while controlling his pain. - Patient Problems (1) Flank pain Current Visit: Yes Status: Acute Priority: High Code(s): R10.9 - UNSPECIFIED ABDOMINAL PAIN SNOMED Code(s): 621442141 Comment: - recent left kidney biopsy with hematoma post procedure - worsening flank pain 1 month after procedure, differential nephrolithiasis, renal osteodystrophy - US kidney showing right 6mm kidney stone, no obstruction seen - pain control with oxycodone Q6h prn (2) ESRD (end stage renal disease) Current Visit: Yes Status: Acute Priority: Medium Code(s): N18.6 - END STAGE RENAL DISEASE SNOMED Code(s): 74443747 Comment: -diabetic nephrosclerosis seen on biopsy -has a fistula done 01/19, not yet matured. -Dialysis needed due to uremic symptoms (aches, vomiting) -tunnelled dialysis catheter was inserted Saturday with no complications -will start dialysis on Saturday -Discussed with Dr. Mcmahan. After dialysis, patient cannot be discharged until he has a dialysis chair here in [place] for Saturday, or in [place], or another nearby facility (3) Type 1 diabetes mellitus with nephropathy Current Visit: No Status: Acute Priority: Medium Code(s): E10.21 - TYPE 1 DIABETES MELLITUS WITH DIABETIC NEPHROPATHY SNOMED Code(s): 45300404 Comment: - had hypoglycemia , likely due to ESRF status - glargine to 8U right now, increasing to 10 due to hyperglycemia - follow [facility] (4) Hyponatremia Current Visit: Yes Status: Acute Priority: Medium Code(s): E87.1 - HYPO- OSMOLALITY AND HYPONATREMIA SNOMED Code(s): 68314679 Comment: - may be symptomatic, w/ vomiting -likely dilutional hyponatremia due to ESRF status -restrict free water intake -Dr. Gardner advised 3% saline bolus due to risk of Na <120, seizures (5) Hypertension Current Visit: No Status: Acute Priority: Medium Code(s): I10 - ESSENTIAL (PRIMARY) HYPERTENSION SNOMED Code(s): 93246501 Comment: -Not well controlled -Adding Nifedipine (6) Anemia of renal disease Current Visit: Yes Status: Acute Priority: Medium Code(s): N18.9 - CHRONIC KIDNEY DISEASE, UNSPECIFIED; D63.1 - ANEMIA IN CHRONIC KIDNEY DISEASE SNOMED Code(s): 427261701 Comment: -Dr. Gardner to give Feraheme tomorrow (7) Full code status Current Visit: No Status: Acute Priority: Medium Onset Date: 06/14/14 Code(s): Z78.9 - OTHER SPECIFIED HEALTH STATUS SNOMED Code(s): 203407540 Comment: Patient expressed wish to be DNR. He has had 2 psych hospitalizations in last month. Will ask psychiatry re capacity. Status and Disposition: Inpatient Medicine
[2019-02-08] MEDS: NIFEdipine ER TAB* 30 MG PO SCH (17:18)
--- NOTE | 2019-02-08 18:31 | PN ---
Progress Note - Progress Note Date of Service: 02/08/19 Note: Outside Chart Review: Obtained records selectively from [facility] and [facility] from [facility]. Timeline: 12/30-01/09/19: at [facility] in ICU with pulmonary edema, acute on chronic respiratory failure 01/06: renal biopsy on LT, complicated by hematoma 01/09? admitted to psychiatry at [facility], due to suicidal statements 01/19: outpatient fistula creation with vascular surgeon in [place], advised to start dialysis when needed in [place] 01/22: seen in [facility] ER, had hospitalist consult, discussion w/ Dr. Hayden, who advised transfer to [facility] for urgent dialysis, not available here that day. 01/23-01/26: inpatient [facility], treated for flank pain/hematoma, no dialysis advised immediately. 01/26-01/27: inpatient psychiatry at [facility], due to suicidal ideation 02/04- admitted [facility], Dr. Gardner advised admission for dialysis
[2019-02-08] MEDS: Insulin GLARGINE(*) 1 UNITS UNIT SUBCUT SCH (20:31)
[2019-02-09] MEDS: traMADol TAB* 50 MG PO PRN ×2 (01:17→18:51)
[2019-02-09] MEDS: hydrALAZINE TAB* 25 MG PO SCH ×2 (07:37→21:35)
[2019-02-09] MEDS: Carvedilol TAB* 6.25 MG PO SCH ×2 (07:37→21:36)
[2019-02-09] MEDS: NIFEdipine ER TAB* 30 MG PO SCH (07:38)
[2019-02-09] MEDS: Pantoprazole TAB * 40 MG TAB PO SCH (07:38)
[2019-02-09] MEDS: oxyCODONE TAB* 5 MG TAB PO PRN ×3 (07:39→23:21)
[2019-02-09] MEDS: Ferrous Sulfate TAB* 325 MG PO SCH (09:24)
[2019-02-09] MEDS: Insulin LISPRO* 1 UNITS UNIT SUBCUT SCH ×4 (09:24→20:30)
[2019-02-09] MEDS: Ondansetron INJ* 2 MG/ML VIAL IV PRN ×2 (11:15→20:24)
[2019-02-09 11:20] LABS: ABS Basophils 0.1 10^3/ul (0-0.2); ABS Eosinophils 0.2 10^3/ul (0-0.6); ABS Lymphocytes 0.9 10^3/ul (1.0-4.8); ABS Monocytes 0.5 10^3/ul (0-0.8); ABS Neutrophils 5.5 10^3/ul (1.5-7.7); Eosinophil % 3.2 %; Hematocrit 24 % (42-52); Hemoglobin 8.3 g/dL (14.0-18.0); Lymphocyte % 12.9 %; Mean Corpuscular HGB Conc 34 g/dL (31-36); Mean Corpuscular Hemoglobin 28 pg (27-31); Mean Corpuscular Volume 82 fL (80-94); Mean Platelet Volume 7.5 fL (7.4-10.4); Platelet Count 354 10^3/uL (150-450); Red Blood Count 2.95 10^6 /uL (4.18-5.48); Red Cell Distribution Width 14 % (10-15); White Blood Count 7.2 10^3/uL (3.5-10.8)
[2019-02-09 11:40] LABS: BUN/Creatinine Ratio 7.9 (8-20); Calcium 8.1 mg/dL (8.6-10.3); EGFR African American 11.8 (>60); EGFR Non-African American 9.7 (>60); Potassium 3.8 mmol/L (3.5-5.0); Uric Acid 6.7 mg/dL (4.4-7.6)
[2019-02-09] MEDS ORDERED: EPOETIN ALFA-EPBX * 4,000 UNIT/ML VIAL IV ONE (13:00)
[2019-02-09] MEDS ORDERED: Iron Sucrose* 20 MG/ML 5 ML VIAL IV PUSH ONE (13:00)
[2019-02-09] MEDS ORDERED: Heparin DIALYSIS ONLY(*) 1,000 UNITS/ML VIAL DIALYSIS ONE (13:00)
--- NOTE | 2019-02-09 15:49 | CONSULT ---
Consult Consult: Consult for Medical Decision Making Capacity S: Psychiatry is asked to evaluate capacity for this 38 y.o. single, white male with a history of ESRD, insulin-dependent DM and depression who is admitted to the Hospitalist service with symptoms of flank pain, nausea and vomiting believed to be related to a hemotoma that developed following a recent kidney biopsy at an outside facility. The patient is requesting DNR/DNI status, however, the primary team notes that he has had two recent psychiatric inpatient hospitalizations for suicidal ideations, first at [facility] and then at [facility], within one month of this hospitalization. They are questioning whether someone with his recent suicidality profile has capacity to choose DNR. Prior to visiting the patient, I spoke with nursing, who indicates that he has been cooperative with care and has not made any suicidal statements here at this hospital. On exam the patient is found in the dialysis chair in room 409, having his first ever hemodialysis treatment. He recognizes this clinician from previous interactions on the [facility] and is calm and cooperative. He denies SI and dismisses his recent psychiatric hospitalizations as the result of "saying stupid shit when I was in agonizing pain." He is future-oriented, saying that he would like to live and get a new apartment with his in the [place] area, and seems to think that with the addition of dialysis he will have a relatively good prognosis. He demonstrates an understanding that DNR/DNI status means that potentially life-prolonging interventions such as intubation and CPR would be eschewed in the event of a medical emergency such as cardiac arrest. "I don't want to , I just don't want somebody jumping on me and breaking my ribs at the end of my life." O: gaunt appearing white, red haired male with a torrez and short haircut; dressed in patient gown; fair grooming; calm, cooperative; euthymic with irritable affect; denies SI or HI; insight and judgment fair; awake and alert; oriented to person/place/situation/time A/P: Capacity: the patient is requesting DNR/DNI status and, in my judgment, has the capacity to do so, based on his demonstrated understanding of what this status entails, and his lack of acute suicidality. Capacity is subject to change in these situations and psychiatry can be re-consulted in the event of any significant alterations in his presentation/situation. Thanks for the consult.
--- NOTE | 2019-02-09 15:58 | PN ---
DIALYSIS NOTE: DATE OF DIALYSIS: 02/09/19 SUBJECTIVE: The patient was seen and examined at bedside and again during dialysis, tolerating the procedure well. Vitals and labs have been reviewed. PHYSICAL EXAM: HEENT: NC/AT. Heart: S1, S2 present. Regular at the time of exam. Lungs: Decreased breath sounds bilaterally. Abdomen: Soft. Extremities: Noted to have no edema. Neuro: Alert. ASSESSMENT AND PLAN: 1. End-stage renal disease secondary to diabetic nephropathy. The patient has been a type 1 diabetic since he was 4 years old. The patient has been noncompliant with his diabetes management. 2. Recently the patient has been to multiple hospitals. 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 We will discuss with medical team to get records of the kidney biopsy, which would likely be diabetic nephrosclerosis given that he was type 1 diabetic, but will rule out other pathology. 3. Discussed the need to follow up closely with Nephrology and primary care. The patient currently does not have a primary care physician, but is currently willing to work with us. 4. The patient lives in [place]. 5. Discussed eventual kidney transplantation and possible kidney-pancreas transplant with the patient if he is compliant with his care; however, the patient reports that he does not want any organ from person and does not want a transplant in the future. He reports that he is not worried about dying. 6. At this time, the patient has been having uremic symptoms for about 2 weeks now and feeling sick. Hence, we will initiate the patient on dialysis to help with his symptoms. 7. The patient needs an outpatient dialysis chair. Discussed with case management on putting out referrals. Currently, his insurance has not accepted at the [facility] in [place], but will work with [facility] in [place] and with our unit to see what can be done about his chair. 8. Acutely he needs dialysis to help with his symptoms. 9. Hyponatremia. We will dialyze him on a 130 sodium bath today and follow sodium closely. 10. As this is first session, the patient dialyzed with low blood flows and dialysate flow and will not take any volume off today. We will monitor closely. 11. For hyponatremia, recommend also checking urine osmolality, serum osmolality, serum uric acid level and urine sodium levels prior to dialysis. 12. Anemia secondary to iron deficiency anemia and anemia of chronic disease. The patient noted to be low in iron, was also started on Venofer 100 mg with his dialysis and the patient will need a total of 10 doses. The patient to get a dose of Epogen today at 4000 units. 13. The patient tolerating his procedure well and will follow the patient with a medical team. TIME SPENT: Total time spent with the patient is equal to 40 minutes. [id number]/[facility] #: [id number] DESHAUN
--- NOTE | 2019-02-09 17:20 | PN ---
Subjective Date of Service: 02/09/19 Interval History: Patient was pain free when I saw him, he stated as he just took oxycodone. He stated it never get better. He is looking forward to his first session of dialysis today. At the meantime, he was disappointed that no one wanted to accept him and get a dialysis placement for him. Objective Active Medications: Acetaminophen (Tylenol Tab*) 650 mg PO Q6H PRN PRN Reason: PAIN - MILD Last Admin: 02/06/19 23:38 Dose: 650 mg Carvedilol (Coreg Tab*) 12.5 mg PO BID [facility] Last Admin: 02/09/19 07:37 Dose: 12.5 mg Dextrose (Dextrose 50% Vial 50 Ml*) 50 ml IV PUSH ONCE PRN PRN Reason: FS < 60 Last Admin: 02/05/19 08:20 Dose: 50 ml Ferrous Sulfate (Ferrous Sulfate Tab*) 325 mg PO DAILY [facility] Last Admin: 02/09/19 09:24 Dose: 325 mg Hydralazine HCl (Apresoline Tab*) 50 mg PO BID [facility] Last Admin: 02/09/19 07:37 Dose: 50 mg Insulin Glargine (Lantus(*)) 8 units SUBCUT BEDTIME [facility] Last Admin: 02/08/19 20:31 Dose: 8 unit Insulin Human Lispro (Humalog*) 0 units SUBCUT ACHS [facility]; Protocol Last Admin: 02/09/19 11:15 Dose: 3 units Nifedipine (Procardia Xl Tab*) 30 mg PO DAILY [facility] Last Admin: 02/09/19 07:38 Dose: 30 mg Ondansetron HCl (Zofran Inj*) 4 mg IV Q6H PRN PRN Reason: NAUSEA Last Admin: 02/09/19 11:15 Dose: 4 mg Oxycodone HCl (Roxycodone Tab*) 5 mg PO Q6H PRN PRN Reason: PAIN - SEVERE Last Admin: 02/09/19 14:16 Dose: 5 mg Pantoprazole Sodium (Protonix Tab*) 40 mg PO DAILY [facility] Last Admin: 02/09/19 07:38 Dose: 40 mg Prochlorperazine (Compazine Tab*) 10 mg PO Q8H PRN PRN Reason: NAUSEA Last Admin: 02/08/19 11:44 Dose: 10 mg Senna (Senokot 8.6 Mg Tab*) 2 tab PO BEDTIME PRN PRN Reason: CONSTIPATION Last Admin: 02/07/19 11:37 Dose: 2 tab Tramadol HCl (Ultram*) 50 mg PO Q8H PRN PRN Reason: PAIN - MODERATE Last Admin: 02/09/19 01:17 Dose: 50 mg Vital Signs - 8 hr 02/09/19 02/09/19 09:26 14:16 Respiratory 16 14 Rate Oxygen Devices in Use Now: None Exam: Appearance: alert, no distress Eyes: No Scleral Icterus Ears/Nose/Mouth/Throat: Clear Oropharnyx Neck: NL Appearance and Movements; NL JVP, tunnelled catheter RT neck Respiratory: Symmetrical Chest Expansion and Respiratory Effort, Clear to Auscultation Cardiovascular: NL Sounds; No Murmurs; No JVD Abdominal: NL Sounds; No Tenderness; No Distention; severe tenderness on CVA area despite mild punch Neurological: Alert and Oriented x 3, - - more bright today Lines/Tubes/Other Access: Clean, Dry and Intact Peripheral IV Nutrition: Taking PO's - Nutrition: Malnutrition Diagnosis/Plan Malnutrition Assessment by Registered Dietitian: Malnutrition Assessment Clinical Characteristics Acute,Severe Malnutrition Assessment: Inadequate Oral Intake - Pt reports a poor Criteria appetite x1 wk; consumed 25% majority of meals, currently NPO - Anticipate meeting <50% nutrient needs >5 days (severe) Unintentional Weight Loss - Pt reports unintentional wt loss x1 wk; current wt 125lb, UBW 130lb x1 wk ago - 3.8% loss x1 wk (severe) Malnutrition Assessment: Nutritional Supplementals/Nourishments - Pt not Interventions amenable to nourishments/supplements at this time; encourage pt to prioritize protein containing foods at meal times and request foods as desired; pt receptive Glycemic Control - Recommend advancing diet to consistent carb as able; will continue to monitor BG/FS in the setting of T1DM Labs - Recommend advancing diet to renal as able ; will continue to monitor labs closely in the setting of ESRD w/ plans for HD GI Related - Recommend continuing pain mgmt and antiemetic PRN; will monitor GI s/sx for impact on intake Education - Pt denies need for consistent carb diet education at this time; provided pt w/ renal diet education; see Nutrition Education under Patient Care tab for details; will remain available to answer questions regarding nutrition education as able Malnutrition Assessment: Goals 1) Adequate po intake to support lean body mass and hydration status 2) Improve fluid/electrolyte balance w/ adequate po intake, restriction, and medical intervention in the setting of ESRD 3) Improve glycemic control w/ adequate po and consistent carb intake in the setting of T1DM 4) Maintain bowel regularity w/ adequate po intake w/o development of diarrhea/constipation 5) Questions regarding nutrition education/diet will be answered prior to d/c Result Diagrams: 02/09/19 11:05 02/09/19 18:01 Assess/Plan/Problems-Billing Assessment: 38 y/o male with history of T1DM, ESRD not on dialysis, depression, presented with worsening lower back pain , intermittent nausea and vomitting, currently planning to initiate dialysis while controlling his pain. - Patient Problems (1) Flank pain Current Visit: Yes Status: Acute Priority: High Code(s): R10.9 - UNSPECIFIED ABDOMINAL PAIN SNOMED Code(s): 988083093 Comment: - recent left kidney biopsy with hematoma post procedure - worsening flank pain 1 month after procedure, differential nephrolithiasis, renal osteodystrophy - US kidney showing right 6mm kidney stone, no obstruction seen - pain control with oxycodone Q6h prn (2) ESRD (end stage renal disease) Current Visit: Yes Status: Acute Priority: Medium Code(s): N18.6 - END STAGE RENAL DISEASE SNOMED Code(s): 68882168 Comment: -diabetic nephrosclerosis seen on biopsy -has a fistula done 01/19, not yet matured. -Dialysis needed due to uremic symptoms (aches, vomiting) -Tunnelled dialysis catheter was inserted Saturday with no complications -Will start dialysis today -After dialysis, patient cannot be discharged until he has a dialysis chair here in [place] for Saturday, or in [place], or another nearby facility (3) Type 1 diabetes mellitus with nephropathy Current Visit: No Status: Acute Priority: Medium Code(s): E10.21 - TYPE 1 DIABETES MELLITUS WITH DIABETIC NEPHROPATHY SNOMED Code(s): 11684632 Comment: - had hypoglycemia , likely due to ESRF status - glargine to 8U right now (4) Hyponatremia Current Visit: Yes Status: Acute Priority: Medium Code(s): E87.1 - HYPO- OSMOLALITY AND HYPONATREMIA SNOMED Code(s): 40772126 Comment: -May be symptomatic, w/ vomiting -Likely dilutional hyponatremia due to ESRF status -restrict free water intake -a/w urine osmolality -watch closely after dialysis Status and Disposition: Inpatient Medicine Attestation Documenting Resident: Kori Tracy Supervising Physician: Lucian Walker Attending/Supervising Physician Comment: States his b/l (left>right) flank pains actually preceded his kidney biopsy by a few weeks. Irritated talking about it. 10/25, chronic both sharp and achy. nothing makes it better or worse. Had only 3 or 4 BMs in the last month since being put on opioids, did have very hard BM yesterday. s/p first dialysis session. He hopes to move to [facility] with his soon, they are trying to find a house. However apparently neither of them have a car and it is a 2 [address] to the bus station to his current house in [place]. He often misses appointments (for instance for his Opthalmologist in [facility]) when his medicaid cabs don't show up. Some nausea today controlled with zofran. Na down to 121 from 122 today. Uosm, Serum Osm, Urine Na, Serum Uric acid to help evaluate etiology. Has been on FW restriction and Normal Saline. Does not look like he got the 3%. Repeat after dialysis. May need hypertonic saline in ICU if not improving. Increase bowel meds. Attestation: This service has been performed in part by a resident under the direction of a teaching physician.I, Lucian Walker, performed the service, or was physically present during the critical, or murillo portions of the service, furnished by the resident. I participated in the management of the patient.
[2019-02-09 18:40] LABS: Potassium 4.3 mmol/L (3.5-5.0)
[2019-02-09 18:45] LABS: BUN/Creatinine Ratio 6.9 (8-20); EGFR African American 17.2 (>60); EGFR Non-African American 14.2 (>60)
[2019-02-09] MEDS: Insulin GLARGINE(*) 1 UNITS UNIT SUBCUT SCH (20:30)
[2019-02-09 23:15] LABS: TSH (Thyroid Stimulating Horm) 0.3 mcIU/mL (0.34-5.60)
[2019-02-10 05:04] LABS: ABS Basophils 0.1 10^3/ul (0-0.2); ABS Eosinophils 0.1 10^3/ul (0-0.6); ABS Lymphocytes 1.1 10^3/ul (1.0-4.8); ABS Monocytes 0.6 10^3/ul (0-0.8); ABS Neutrophils 5.5 10^3/ul (1.5-7.7); Eosinophil % 1.8 %; Hematocrit 24 % (42-52); Hemoglobin 8.3 g/dL (14.0-18.0); Lymphocyte % 14.3 %; Mean Corpuscular HGB Conc 34 g/dL (31-36); Mean Corpuscular Hemoglobin 28 pg (27-31); Mean Corpuscular Volume 82 fL (80-94); Mean Platelet Volume 7.4 fL (7.4-10.4); Platelet Count 381 10^3/uL (150-450); Red Blood Count 2.94 10^6 /uL (4.18-5.48); Red Cell Distribution Width 14 % (10-15); White Blood Count 7.4 10^3/uL (3.5-10.8)
[2019-02-10 05:17] LABS: BUN/Creatinine Ratio 7.1 (8-20); Calcium 8.3 mg/dL (8.6-10.3); EGFR African American 16.2 (>60); EGFR Non-African American 13.4 (>60); Phosphorus 3.5 mg/dL (2.5-5.0); Potassium 3.9 mmol/L (3.5-5.0)
[2019-02-10] MEDS: oxyCODONE TAB* 5 MG TAB PO PRN ×3 (05:22→18:37)
[2019-02-10] MEDS: Ondansetron INJ* 2 MG/ML VIAL IV PRN ×3 (05:23→18:38)
[2019-02-10] MEDS: hydrALAZINE TAB* 25 MG PO SCH ×2 (08:37→21:21)
[2019-02-10] MEDS: NIFEdipine ER TAB* 30 MG PO SCH (08:37)
[2019-02-10] MEDS: Pantoprazole TAB * 40 MG TAB PO SCH (08:37)
[2019-02-10] MEDS: Ferrous Sulfate TAB* 325 MG PO SCH (08:37)
[2019-02-10] MEDS: Insulin LISPRO* 1 UNITS UNIT SUBCUT SCH ×4 (08:38→21:00)
[2019-02-10] MEDS: Carvedilol TAB* 6.25 MG PO SCH ×2 (08:38→21:21)
[2019-02-10] MEDS: traMADol TAB* 50 MG PO PRN (08:38)
--- NOTE | 2019-02-10 09:03 | PN ---
Hospitalist Progress Note Per OSH records: kidney biopsy 01/06 showed "near total glomerulosclerosis, intersistial fibrosis and tubular atrophy associated with changes characteristic of diabetic nephropathy" Also: JOSE, ANCA negative Dec 2018 Glomerular Basement Membrane Ab IgG negative ECHO during 12/30 admission at OSH showed EF 25% w. mild to moderate mitral regurg. Mention of presumed gastroparesis dx in [place]. Gastric Emptying was negative in 2014 at [place]
[2019-02-10] MEDS ORDERED: Docusate CAP* 100 MG PO PRN (10:56)
[2019-02-10] MEDS ORDERED: Lisinopril TAB* 5 MG PO ONE (11:26)
[2019-02-10] MEDS ORDERED: Furosemide IV* 10 MG/ML VIAL (40 MG) IV ONE (11:28)
--- NOTE | 2019-02-10 12:27 | PN ---
PROGRESS NOTE: DATE OF VISIT: 02/10/19 SERVICE: [facility] Nephrology. SUBJECTIVE: The patient was seen and examined at bedside. The patient reports that he is still very nauseous and feels poorly. The patient reports that it is not worse than before, but the patient st ill continues to feel terrible. Vitals and labs have been reviewed. PHYSICAL EXAM: HEENT: NC/AT. Heart: S1, S2 present. Regular at the time of exam. Lungs: Decrea sed breath sounds bilaterally. Abdomen: Soft. Extremities: Noted to have no edema. Neuro: Alert and oriented. ASSESSMENT AND PLAN: 1. 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 2. The patient has been type 1 diabetic since he was 4 years of age and has not been very compliant with his insulin regimen. 3. The patient was initiated on dialysis yesterday for his uremic symptoms and was dialyzed with low blood flows and low dialysate flows to avoid dialysis disequilibrium syndrome and on a low sodium ba th of 130. We will monitor the patient closely. 4. We will plan his next session in the hospital tomorrow. 5. Hyponatremia, likely multifactorial in the setting of advanced chronic kidney disease. The patie nt's sodium has been low chronically and the patient appears to have adjusted to his new sodium set p oint. His hyponatremia could partly also be volume driven given that his hypertensive, has not had a ny volume removal in dialysis, advanced chronic kidney disease and also noted to have a low EF. Recom mend starting the patient on low dose Lasix at 40 mg to help with his hyponatremia and volume. 6. Anemia secondary to iron deficiency and anemia of chronic disease. The patient was started on Ve nofer with his dialysis and will need a total of 10 doses 100 mg with each treatment. The patient al so started on Epogen 4000 units, but the Epogen will not work well till he is iron replete. 7. I had detailed discussion with the patient about his prognosis and his noncompliance in the past. The patient promises that he will be your partner in his care and will follow his medical regimen. 8. Also clarified that the patient wants to be on dialysis as he needs it in the setting of end-stag e renal disease as the patient often remarks that he wants to . The patient clarified that he verdugo s not want to , but if he dies, then he is okay with it, but he wants to live and he wants to cont inue dialysis if he needs it. 9. The patient does not want any transplants. Discussed the benefits of kidney and pancreas transpl ant, but the patient reports that he does not want an organ from people and at this time wants t o hold off. 10. Also discussed the fact that we would need to cannulate his fistula when it is ready in 2 to 3 m [facility] as there would be very high infection risk associated with using his catheter. The patient agr ees for fistula cannulation and reports that he is willing to have this used and he does not have a p roblem with the needles used for cannulation. 11. Paperwork is still in progress, discussed with case management about his [facility] placement. ey are sending the paperwork today. We will also discuss with our own dialysis unit on his status. 12. Discussed with the primary medical team. TIME SPENT: Total time spent with the patient is equal to 35 minutes. [id number]/[facility] #: [id number]
--- NOTE | 2019-02-10 13:52 | PN ---
Subjective Date of Service: 02/10/19 Interval History: No event during 2 hour dialysis session yesterday. Had some nausea but no vomitting this morning, similar as what he had before. No SOB, bilateral flank pain is controlled, no fever, no chills. He also complained of new onset of suprapubic pain this morning together with dysuria Objective Active Medications: Acetaminophen (Tylenol Tab*) 650 mg PO Q6H PRN PRN Reason: PAIN - MILD Last Admin: 02/06/19 23:38 Dose: 650 mg Carvedilol (Coreg Tab*) 12.5 mg PO BID [facility] Last Admin: 02/10/19 08:38 Dose: 12.5 mg Dextrose (Dextrose 50% Vial 50 Ml*) 50 ml IV PUSH ONCE PRN PRN Reason: FS < 60 Last Admin: 02/05/19 08:20 Dose: 50 ml Docusate Sodium (Colace Cap*) 100 mg PO DAILY PRN PRN Reason: CONSTIPATION Ferrous Sulfate (Ferrous Sulfate Tab*) 325 mg PO DAILY [facility] Last Admin: 02/10/19 08:37 Dose: 325 mg Hydralazine HCl (Apresoline Tab*) 50 mg PO BID [facility] Last Admin: 02/10/19 08:37 Dose: 50 mg Insulin Glargine (Lantus(*)) 12 units SUBCUT BEDTIME [facility] Insulin Human Lispro (Humalog*) 0 units SUBCUT ACHS [facility]; Protocol Last Admin: 02/10/19 12:48 Dose: 3 units Nifedipine (Procardia Xl Tab*) 30 mg PO DAILY [facility] Last Admin: 02/10/19 08:37 Dose: 30 mg Ondansetron HCl (Zofran Inj*) 4 mg IV Q6H PRN PRN Reason: NAUSEA Last Admin: 02/10/19 10:44 Dose: 4 mg Oxycodone HCl (Roxycodone Tab*) 5 mg PO Q6H PRN PRN Reason: PAIN - SEVERE Last Admin: 02/10/19 12:48 Dose: 5 mg Pantoprazole Sodium (Protonix Tab*) 40 mg PO DAILY [facility] Last Admin: 02/10/19 08:37 Dose: 40 mg Prochlorperazine (Compazine Tab*) 10 mg PO Q8H PRN PRN Reason: NAUSEA Last Admin: 02/10/19 07:58 Dose: 10 mg Senna (Senokot 8.6 Mg Tab*) 2 tab PO BEDTIME PRN PRN Reason: CONSTIPATION Last Admin: 02/07/19 11:37 Dose: 2 tab Vital Signs - 8 hr 02/10/19 02/10/19 02/10/19 07:21 07:48 08:00 Temperature 98.6 F Pulse Rate 93 Respiratory 18 18 18 Rate Blood Pressure 168/79 (mmHg) O2 Sat by Pulse 98 Oximetry 02/10/19 02/10/19 02/10/19 08:38 10:46 11:31 Temperature 98.0 F Pulse Rate 83 Respiratory 18 16 20 Rate Blood Pressure 163/84 (mmHg) O2 Sat by Pulse 100 Oximetry 02/10/19 12:48 Temperature Pulse Rate Respiratory 16 Rate Blood Pressure (mmHg) O2 Sat by Pulse Oximetry Oxygen Devices in Use Now: None Exam: Appearance: alert, no distress Eyes: No Scleral Icterus Ears/Nose/Mouth/Throat: Clear Oropharnyx Neck: NL Appearance and Movements; NL JVP, tunnelled catheter RT neck Respiratory: Symmetrical Chest Expansion and Respiratory Effort, Clear to Auscultation Cardiovascular: NL Sounds; No Murmurs; No JVD Abdominal: NL Sounds; No Tenderness; No Distention; tenderness over suprapubic area. Neurological: Alert and Oriented x 3, - - more bright today Lines/Tubes/Other Access: Clean, Dry and Intact Peripheral IV - Nutrition: Malnutrition Diagnosis/Plan Malnutrition Assessment by Registered Dietitian: Malnutrition Assessment Clinical Characteristics Acute,Severe Malnutrition Assessment: Inadequate Oral Intake - Pt reports a poor Criteria appetite x1 wk; consumed 25% majority of meals, currently NPO - Anticipate meeting <50% nutrient needs >5 days (severe) Unintentional Weight Loss - Pt reports unintentional wt loss x1 wk; current wt 125lb, UBW 130lb x1 wk ago - 3.8% loss x1 wk (severe) Malnutrition Assessment: Nutritional Supplementals/Nourishments - Pt not Interventions amenable to nourishments/supplements at this time; encourage pt to prioritize protein containing foods at meal times and request foods as desired; pt receptive Glycemic Control - Recommend advancing diet to consistent carb as able; will continue to monitor BG/FS in the setting of T1DM Labs - Recommend advancing diet to renal as able ; will continue to monitor labs closely in the setting of ESRD w/ plans for HD GI Related - Recommend continuing pain mgmt and antiemetic PRN; will monitor GI s/sx for impact on intake Education - Pt denies need for consistent carb diet education at this time; provided pt w/ renal diet education; see Nutrition Education under Patient Care tab for details; will remain available to answer questions regarding nutrition education as able Malnutrition Assessment: Goals 1) Adequate po intake to support lean body mass and hydration status 2) Improve fluid/electrolyte balance w/ adequate po intake, restriction, and medical intervention in the setting of ESRD 3) Improve glycemic control w/ adequate po and consistent carb intake in the setting of T1DM 4) Maintain bowel regularity w/ adequate po intake w/o development of diarrhea/constipation 5) Questions regarding nutrition education/diet will be answered prior to d/c Result Diagrams: 02/10/19 04:49 02/10/19 04:49 Assess/Plan/Problems-Billing Assessment: 38 y/o male with history of T1DM, ESRD not on dialysis, depression, presented with worsening lower back pain , intermittent nausea and vomitting, currently planning to initiate dialysis while controlling his pain. - Patient Problems (1) Flank pain Current Visit: Yes Status: Acute Priority: High Code(s): R10.9 - UNSPECIFIED ABDOMINAL PAIN SNOMED Code(s): 214036965 Comment: - recent left kidney biopsy with hematoma post procedure, likely diabetic neuropathy - worsening flank pain 1 month after procedure, differential nephrolithiasis, renal osteodystrophy - US kidney showing right 6mm kidney stone, no obstruction seen - pain control with oxycodone Q6h prn for severe pain (2) ESRD (end stage renal disease) Current Visit: Yes Status: Acute Priority: Medium Code(s): N18.6 - END STAGE RENAL DISEASE SNOMED Code(s): 20171283 Comment: -diabetic nephrosclerosis seen on biopsy -has a fistula done 01/19, not yet matured. -Dialysis needed due to uremic symptoms (aches, vomiting) -Tunnelled dialysis catheter was inserted Saturday with no complications -Will start dialysis today -After dialysis, patient cannot be discharged until he has a dialysis chair here in [place] for Saturday, or in [place], or another nearby facility (3) Type 1 diabetes mellitus with nephropathy Current Visit: No Status: Acute Priority: Medium Code(s): E10.21 - TYPE 1 DIABETES MELLITUS WITH DIABETIC NEPHROPATHY SNOMED Code(s): 01671423 Comment: - had hypoglycemia , likely due to ESRF status - increase glargine to 10U right now (4) Hyponatremia Current Visit: Yes Status: Acute Priority: Medium Code(s): E87.1 - HYPO- OSMOLALITY AND HYPONATREMIA SNOMED Code(s): 09989551 Comment: -asymptomatic, w/ vomiting -Likely chronic dilutional hyponatremia due to ESRF status, could also be set point shift which has been happening. - will try lasixiv 40mg today to see Na level Status and Disposition: Inpatient Medicine Attestation Documenting Resident: Kori Tracy Supervising Physician: Lucian Walker Attending/Supervising Physician Comment: #chronic systolic CHF repeat ECHO with similar findings from [facility] in Dec. EF 20-25%. ?concern for nonimpaction. Will need Cardiology f/u as outpatient (may need cardiac MRI and or biopsy to establish nonimpaction diagnosis). given uncontrolled Hypertension today will start ACEI with lisinopril 5mg daily which should also provide some renal protection. Consideration for spironolactone. #n/v/abdominal pain with on/off diagnosis of gastroparesis. Dr. De Paz took him off reglan which he seems to have found effective. #constipation colace added continue senna multiple BMs today with some improvement in abd pain. #disposition has been accepted to [facility], need to clarify when his chair time will be and whether he still needs insurance switch. Relieable transportation will be a major barrier to his care/regular physcian visits. Attestation: This service has been performed in part by a resident under the direction of a teaching physician.I, Lucian Walker, performed the service, or was physically present during the critical, or murillo portions of the service, furnished by the resident. I participated in the management of the patient.
[2019-02-10 16:29] LABS: Urine Appearance Clear; Urine Bilirubin Negative (Negative); Urine Blood Negative (Negative); Urine Color Straw; Urine Glucose 3+(>=500 mg/dL) (Negative); Urine Ketones Negative (Negative); Urine Nitrite Negative (Negative); Urine Protein 2+(100 mg/dL) (Negative); Urine Specific Gravity 1.009 (1.010-1.030); Urine Urobilinogen Negative (Negative)
[2019-02-10 16:43] LABS: Urine Bacteria Absent (Absent); Urine Red Blood Cell Trace(0-2/hpf) (Absent); Urine White Blood Cell Trace(0-5/hpf) (Absent)
--- NOTE | 2019-02-10 17:13 | ECHO ---
*[facility]* [place] [address] Fax #: [phone] Transthoracic Echocardiogram Patient: Barron Simmons : 1980 Study Date: 02/10/2019 Age: 38 Gender: M HR: 84 bpm Height: 69 in /175.3 cm BSA: 1.7 m^2 Weight: 125.7 lb /57.2 kg BMI: 18.6 kg/m^2 *Account Clerk: * Yesenia Lopez [facility] *Referring Physician: * Kori Tracy *Reading Physician: * Chico Walls MD Indications: Congestive Heart Failure. History: Dialysis-dependent end-stage renal disease. Risk factors: Current tobacco use. Hypertension. Diabetes mellitus. Conclusions Summary: - Left ventricle: The cavity size is at the upper limits of normal. Wall thickness is mildly increased. The trabeculation is abnormal possibly consistant with non-compaction Systolic function is severely reduced. The estimated ejection fraction is 20-25%. Global hypokinesis - Right ventricle: Systolic function is normal. - Mitral valve: There is mild to moderate regurgitation. The mean diastolic gradient is 3.0 mm Hg. The valve area by pressure half-time is 2.1 cm^2. - Aortic valve: There is no evidence of stenosis. There is trace regurgitation. - Tricuspid valve: There is trace regurgitation. - Pulmonary arteries: Systolic pressure can not be accurately estimated. - Study data: No prior study is available for comparison. Study data: Transthoracic echocardiogram. Procedure: Transthoracic echocardiography was performed. Image quality was good. Complete 2D, spectral Doppler, and color flow Doppler. Location: Bedside. Patient status: Inpatient. Patient room number: 450. No prior study is available for comparison. Rhythm: Normal sinus rhythm. Findings Left ventricle: The cavity size is at the upper limits of normal. Wall thickness is mildly increased. The trabeculation is abnormal possibly consistant with non-compaction Systolic function is severely reduced. The estimated ejection fraction is 20-25%. There is no consistent Doppler evidence of clinically significant diastolic dysfunction. Right ventricle: The cavity size is normal. Wall thickness is mildly increased. Systolic function is normal. Left atrium: The atrium is severely dilated. Right atrium: The atrium is at the upper limits of normal in size. Catheter is noted in right atrium. Mitral valve: The leaflets are normal thickness. There is no evidence of stenosis. There is mild to moderate regurgitation. Aortic valve: The valve is trileaflet. The leaflets are normal thickness. There is no evidence of stenosis. There is trace regurgitation. Tricuspid valve: The leaflets are normal thickness. There is no evidence of stenosis. There is trace regurgitation. Pulmonic valve: The leaflets are normal thickness. There is no evidence of stenosis. There is trace to mild regurgitation. Aorta: The aortic root appears normal. The aortic arch appears normal. Pericardium: There is no significant pericardial effusion. Pulmonary arteries: The main pulmonary artery is normal-sized. Systolic pressure can not be accurately estimated. Systemic veins: Inferior vena cava: The vessel is normal in size. There is (< 50%) respiratory change in the IVC dimension. Measurements Left ventricle Value Ref Mitral valve Value Ref KENN, LAX 5.6 cm 4.2 - 5.8 Peak E 1.34 m/sec ---- ESD, LAX (H) 4.3 cm 2.5 - 4.0 Peak A 0.62 m/sec ---- FS, LAX (L) 23 % 25 - 43 Decel time 111 ms ---- PW, ED, LAX (H) 1.2 cm 0.6 - 1.0 PHT 103 ms ---- EF (L) 46 % 52 - 72 Mean grad, D 3.0 mm Hg ---- E', lat hollie, TDI 10.7 cm/sec >=10.0 Peak grad, D 6.0 mm Hg ---- E/e', lat hollie, 13 Peak E/A ratio 2.1 ---- TDI MVA, PHT 2.1 cm^2 ---- E', med hollie, TDI 8.2 cm/sec >=7.0 ERO, PISA 0.06 cm^2 ---- E/e', med hollie, 16 MR vol, PISA 10 ml ---- TDI E', avg, TDI 9.5 cm/sec Pulmonic valve Value Ref E/e', avg, TDI 14 <=14 Peak v, S 0.81 m/sec ---- Peak grad, S 3.0 mm Hg ---- LVOT Value Ref Peak lalita, S 1.06 m/sec Aortic root Value Ref Mean grad, S 2 mm Hg Root diam 3.0 cm <3.4 Ventricular septum Value Ref Ascending aorta Value Ref IVS, ED (H) 1.2 cm 0.6 - 1.0 AAo AP diam, S 2.3 cm ---- Right ventricle Value Ref Aortic arch Value Ref KENN, LAX 2.4 cm Arch diam 2.1 cm ---- KENN minor ax, A4C 3.0 cm 1.9 - 3.5 mid Decending aorta Value Ref Kate peak lalita 0.91 m/sec ---- Left atrium Value Ref AP dim, ES 3.60 cm 3.00 - Inferior vena cava Value Ref 4.00 Diam 2.0 cm ---- ML dim, A4C 4.5 cm SI dim, A4C 7.2 cm Pulmonary veins Value Ref Vol/bsa, ES, A/L (H) 55 ml/m^2 16 - 34 Peak v, S 0.49 m/sec ---- Peak v, D 0.81 m/sec ---- Right atrium Value Ref Peak S/D ratio 0.6 ---- SI dim, ES 5.1 cm 3.4 - 5.3 A rev duration 98 ms ---- ML dim, ES, A4C 4.2 cm 2.6 - 4.4 Estimated RAP 8 mm Hg Aortic valve Value Ref Hollie diam, ED 2.1 cm Peak v, S 1.33 m/sec VTI, S 23.7 cm Mean grad, S 4.0 mm Hg Peak grad, S 7.0 mm Hg Legend: (L) and (H) nury values outside specified reference range. Prepared and electronically signed by Chico Walls MD 02/10/2019 17:13
[2019-02-10] MEDS ORDERED: Insulin LISPRO* 1 UNITS UNIT SUBCUT ONE (20:58)
[2019-02-10] MEDS ORDERED: Insulin GLARGINE(*) 1 UNITS UNIT SUBCUT SCH (21:00)
[2019-02-11] MEDS: oxyCODONE TAB* 5 MG TAB PO PRN ×4 (00:35→20:38)
[2019-02-11] MEDS: Ondansetron INJ* 2 MG/ML VIAL IV PRN ×3 (01:15→20:38)
[2019-02-11 06:19] LABS: ABS Basophils 0.1 10^3/ul (0-0.2); ABS Eosinophils 0.2 10^3/ul (0-0.6); ABS Lymphocytes 1.1 10^3/ul (1.0-4.8); ABS Monocytes 0.7 10^3/ul (0-0.8); ABS Neutrophils 3.8 10^3/ul (1.5-7.7); Eosinophil % 3.5 %; Hematocrit 24 % (42-52); Hemoglobin 8.4 g/dL (14.0-18.0); Lymphocyte % 19.2 %; Mean Corpuscular HGB Conc 34 g/dL (31-36); Mean Corpuscular Hemoglobin 28 pg (27-31); Mean Corpuscular Volume 82 fL (80-94); Mean Platelet Volume 7.4 fL (7.4-10.4); Platelet Count 374 10^3/uL (150-450); Red Blood Count 2.99 10^6 /uL (4.18-5.48); Red Cell Distribution Width 14 % (10-15); White Blood Count 5.9 10^3/uL (3.5-10.8)
[2019-02-11 06:34] LABS: BUN/Creatinine Ratio 6.8 (8-20); Calcium 8.2 mg/dL (8.6-10.3); EGFR Non-African American 11.6 (>60); Potassium 3.7 mmol/L (3.5-5.0)
[2019-02-11] MEDS: Insulin LISPRO* 1 UNITS UNIT SUBCUT SCH ×4 (07:33→20:39)
[2019-02-11] MEDS: hydrALAZINE TAB* 25 MG PO SCH ×2 (08:37→20:38)
[2019-02-11] MEDS: Pantoprazole TAB * 40 MG TAB PO SCH (08:37)
[2019-02-11] MEDS: Carvedilol TAB* 6.25 MG PO SCH ×2 (08:38→20:38)
[2019-02-11] MEDS: Ferrous Sulfate TAB* 325 MG PO SCH (08:38)
[2019-02-11] MEDS: NIFEdipine ER TAB* 30 MG PO SCH (08:38)
[2019-02-11] MEDS ORDERED: IRON SUCROSE IVPB ONE (11:00)
[2019-02-11] MEDS ORDERED: EPOETIN ALFA-EPBX * 4,000 UNIT/ML VIAL IV ONE (11:00)
[2019-02-11] MEDS ORDERED: NS 0.9% IVPB ONE (11:00)
[2019-02-11] MEDS ORDERED: Heparin DIALYSIS ONLY(*) 1,000 UNITS/ML VIAL DIALYSIS ONE (11:00)
--- NOTE | 2019-02-11 17:02 | PN ---
Subjective Date of Service: 02/11/19 Interval History: Patient still had one episode of nausea and vomiting this morning. Bilateral flank pain and lower back pain is improving. Objective Active Medications: Acetaminophen (Tylenol Tab*) 650 mg PO Q6H PRN PRN Reason: PAIN - MILD Last Admin: 02/06/19 23:38 Dose: 650 mg Carvedilol (Coreg Tab*) 12.5 mg PO BID [facility] Last Admin: 02/11/19 08:38 Dose: 12.5 mg Dextrose (Dextrose 50% Vial 50 Ml*) 50 ml IV PUSH ONCE PRN PRN Reason: FS < 60 Last Admin: 02/05/19 08:20 Dose: 50 ml Docusate Sodium (Colace Cap*) 100 mg PO DAILY PRN PRN Reason: CONSTIPATION Ferrous Sulfate (Ferrous Sulfate Tab*) 325 mg PO DAILY [facility] Last Admin: 02/11/19 08:38 Dose: 325 mg Hydralazine HCl (Apresoline Tab*) 50 mg PO BID [facility] Last Admin: 02/11/19 08:37 Dose: 50 mg Insulin Glargine (Lantus(*)) 16 units SUBCUT BEDTIME [facility] Insulin Human Lispro (Humalog*) 0 units SUBCUT [facility]; Protocol Last Admin: 02/11/19 13:49 Dose: Not Given Nifedipine (Procardia Xl Tab*) 30 mg PO DAILY [facility] Last Admin: 02/11/19 08:38 Dose: 30 mg Ondansetron HCl (Zofran Inj*) 4 mg IV Q6H PRN PRN Reason: NAUSEA Last Admin: 02/11/19 07:50 Dose: 4 mg Oxycodone HCl (Roxycodone Tab*) 5 mg PO Q6H PRN PRN Reason: PAIN - SEVERE Last Admin: 02/11/19 14:22 Dose: 5 mg Pantoprazole Sodium (Protonix Tab*) 40 mg PO DAILY [facility] Last Admin: 02/11/19 08:37 Dose: 40 mg Prochlorperazine (Compazine Tab*) 10 mg PO Q8H PRN PRN Reason: NAUSEA Last Admin: 02/10/19 07:58 Dose: 10 mg Senna (Senokot 8.6 Mg Tab*) 2 tab PO BEDTIME PRN PRN Reason: CONSTIPATION Last Admin: 02/07/19 11:37 Dose: 2 tab Vital Signs - 8 hr 02/11/19 02/11/19 02/11/19 14:22 15:32 16:48 Temperature 97.6 F Pulse Rate 87 Respiratory 16 20 16 Rate Blood Pressure 149/75 (mmHg) O2 Sat by Pulse 100 Oximetry Oxygen Devices in Use Now: None Exam: Appearance: alert, no distress Eyes: No Scleral Icterus Ears/Nose/Mouth/Throat: Clear Oropharnyx Neck: NL Appearance and Movements; NL JVP, tunnelled catheter RT neck Respiratory: Symmetrical Chest Expansion and Respiratory Effort, Clear to Auscultation Cardiovascular: NL Sounds; No Murmurs; No JVD Abdominal: NL Sounds; No Tenderness; No Distention; tenderness over suprapubic area. Neurological: Alert and Oriented x 3 Lines/Tubes/Other Access: Clean, Dry and Intact Peripheral IV - Nutrition: Malnutrition Diagnosis/Plan Malnutrition Assessment by Registered Dietitian: Malnutrition Assessment Clinical Characteristics Acute,Severe Malnutrition Assessment: Inadequate Oral Intake - Pt reports a poor Criteria appetite x1 wk; consumed 25% majority of meals, currently NPO - Anticipate meeting <50% nutrient needs >5 days (severe) Unintentional Weight Loss - Pt reports unintentional wt loss x1 wk; current wt 125lb, UBW 130lb x1 wk ago - 3.8% loss x1 wk (severe) Malnutrition Assessment: Nutritional Supplementals/Nourishments - Pt not Interventions amenable to nourishments/supplements at this time; encourage pt to prioritize protein containing foods at meal times and request foods as desired; pt receptive Glycemic Control - Recommend advancing diet to consistent carb as able; will continue to monitor BG/FS in the setting of T1DM Labs - Recommend advancing diet to renal as able ; will continue to monitor labs closely in the setting of ESRD w/ plans for HD GI Related - Recommend continuing pain mgmt and antiemetic PRN; will monitor GI s/sx for impact on intake Education - Pt denies need for consistent carb diet education at this time; provided pt w/ renal diet education; see Nutrition Education under Patient Care tab for details; will remain available to answer questions regarding nutrition education as able Malnutrition Assessment: Goals 1) Adequate po intake to support lean body mass and hydration status 2) Improve fluid/electrolyte balance w/ adequate po intake, restriction, and medical intervention in the setting of ESRD 3) Improve glycemic control w/ adequate po and consistent carb intake in the setting of T1DM 4) Maintain bowel regularity w/ adequate po intake w/o development of diarrhea/constipation 5) Questions regarding nutrition education/diet will be answered prior to d/c Result Diagrams: 02/11/19 05:45 02/11/19 05:44 Assess/Plan/Problems-Billing Assessment: 38 y/o male with history of T1DM, ESRD not on dialysis, depression, presented with worsening lower back pain , intermittent nausea and vomitting, currently planning to initiate dialysis while controlling his pain. - Patient Problems (1) Flank pain Current Visit: Yes Status: Acute Priority: High Code(s): R10.9 - UNSPECIFIED ABDOMINAL PAIN SNOMED Code(s): 389504528 Comment: - recent left kidney biopsy with hematoma post procedure, likely diabetic neuropathy - worsening flank pain 1 month after procedure, differential nephrolithiasis, renal osteodystrophy - US kidney showing right 6mm kidney stone, no obstruction seen - pain control with oxycodone Q6h prn for severe pain (2) ESRD (end stage renal disease) Current Visit: Yes Status: Acute Priority: Medium Code(s): N18.6 - END STAGE RENAL DISEASE SNOMED Code(s): 96651308 Comment: -diabetic nephrosclerosis seen on biopsy -has a fistula done 01/19, not yet matured. -Tunnelled dialysis catheter was inserted last Saturday with no complications -will have 2nd session dialysis today (3) Type 1 diabetes mellitus with nephropathy Current Visit: No Status: Acute Priority: Medium Code(s): E10.21 - TYPE 1 DIABETES MELLITUS WITH DIABETIC NEPHROPATHY SNOMED Code(s): 31191078 Comment: - initially had hypoglycemia , likely due to ESRF status, now resolved - increase glargine to 16U right now (4) Hyponatremia Current Visit: Yes Status: Acute Priority: Medium Code(s): E87.1 - HYPO- OSMOLALITY AND HYPONATREMIA SNOMED Code(s): 41786333 Comment: -asymptomatic except vomiting which could be related to uremic status -Likely chronic dilutional hyponatremia due to ESRF status, could also be set point shift which has been happening. - repeat Na after dialysis Status and Disposition: Inpatient Medicine. Will complete dialysis inpatient on Saturday and discharge for outpt dialysis after that Attestation Documenting Resident: Kori Tracy Supervising Physician: Lucian Walker Attending/Supervising Physician Comment: tolerated his 2nd HD session well. Got HD chair but does not start until next Saturday so will need HD on Tuesday 02/13 before potential discharge. Attestation: This service has been performed in part by a resident under the direction of a teaching physician.I, Lucian Walker, performed the service, or was physically present during the critical, or murillo portions of the service, furnished by the resident. I participated in the management of the patient.
--- NOTE | 2019-02-11 17:03 | PN ---
PROGRESS NOTE: DATE OF DIALYSIS: 02/11/19 SERVICE: [facility]. SUBJECTIVE: The patient was seen and examined during dialysis, tolerating the procedure well. Vitals and labs have been reviewed. PHYSICAL EXAMINATION: HEENT: NC/AT. Heart: S1, S2 present, regular at the time of exam. Lungs: Decreased breath sounds bilaterally. Abdomen: Soft. Extremities: No edema. Neuro: Alert, oriented. ASSESSMENT AND PLAN: 1. 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 2. The patient tolerating the second session of dialysis. Will increase his blood flows and dialysate further, however, will still keep it gentle as it is only a second session. 3. Will not remove any volume during the session today. 4. Hyponatremia, multifactorial in the setting of advanced chronic kidney disease. We will adjust his sodium bath in dialysis and still keep it low at 132 and recommend following up sodium after the procedure. Recommend avoiding rapid correction of more than 8 to 10 mEq per day to avoid CPM. 5. Anemia secondary to iron deficiency and chronic disease. We will continue Epogen and continue Venofer at 100 mg. 6. We have accepted the patient to our dialysis unit. was able to process his insurance and patient has Saturday, , Saturday spot. 7. The patient can be accepted to the unit possibly on Saturday of next week and is in the process of completing his paper work and transportation. 8. The patient can possibly be discharged if he continues to do well after the dialysis on Saturday and come back to the outpatient unit on Saturday. 9. Home dialysis option discussed with the patient and the patient wants to explore the possibility as well. 10. The patient tolerating this procedure well and will closely monitor him after his procedure. [id number]/[facility] #: [id number] DESHA[place]
[2019-02-11] MEDS ORDERED: Insulin GLARGINE(*) 1 UNITS UNIT SUBCUT SCH (21:00)
[2019-02-12] MEDS: oxyCODONE TAB* 5 MG TAB PO PRN ×2 (02:38→08:36)
[2019-02-12] MEDS: Ondansetron INJ* 2 MG/ML VIAL IV PRN ×2 (03:28→08:36)
[2019-02-12] MEDS: Carvedilol TAB* 6.25 MG PO SCH (08:36)
[2019-02-12] MEDS: hydrALAZINE TAB* 25 MG PO SCH (08:37)
[2019-02-12] MEDS: NIFEdipine ER TAB* 30 MG PO SCH (08:38)
[2019-02-12] MEDS: Ferrous Sulfate TAB* 325 MG PO SCH (08:38)
[2019-02-12] MEDS: Insulin LISPRO* 1 UNITS UNIT SUBCUT SCH ×2 (08:38→13:02)
[2019-02-12] MEDS: Pantoprazole TAB * 40 MG TAB PO SCH (08:38)
[2019-02-12] MEDS ORDERED: Lisinopril TAB* 5 MG PO SCH (09:00)
[2019-02-12 11:52] VITALS: BP 166/83
--- NOTE | 2019-02-12 13:31 | PN ---
Subjective Date of Service: 02/12/19 Interval History: Patient was upset that he needed to stay for another day, he blamed us to keep him here. Explained to him the reason we keep him is that the earliest for outpatient dialysis will be Saturday. We concerned that he would develop more symptoms without dialysis. He refused blood taking this morning. Objective Active Medications: Acetaminophen (Tylenol Tab*) 650 mg PO Q6H PRN PRN Reason: PAIN - MILD Last Admin: 02/06/19 23:38 Dose: 650 mg Carvedilol (Coreg Tab*) 12.5 mg PO BID [facility] Last Admin: 02/12/19 08:36 Dose: 12.5 mg Dextrose (Dextrose 50% Vial 50 Ml*) 50 ml IV PUSH ONCE PRN PRN Reason: FS < 60 Last Admin: 02/05/19 08:20 Dose: 50 ml Docusate Sodium (Colace Cap*) 100 mg PO DAILY PRN PRN Reason: CONSTIPATION Ferrous Sulfate (Ferrous Sulfate Tab*) 325 mg PO DAILY [facility] Last Admin: 02/12/19 08:38 Dose: 325 mg Hydralazine HCl (Apresoline Tab*) 50 mg PO BID [facility] Last Admin: 02/12/19 08:37 Dose: 50 mg Insulin Glargine (Lantus(*)) 20 units SUBCUT BEDTIME [facility] Insulin Human Lispro (Humalog*) 0 units SUBCUT ACHS [facility]; Protocol Last Admin: 02/12/19 13:02 Dose: Not Given Lisinopril (Prinivil Tab*) 5 mg PO DAILY [facility] Last Admin: 02/12/19 08:37 Dose: 5 mg Nifedipine (Procardia Xl Tab*) 30 mg PO DAILY [facility] Last Admin: 02/12/19 08:38 Dose: 30 mg Ondansetron HCl (Zofran Inj*) 4 mg IV Q6H PRN PRN Reason: NAUSEA Last Admin: 02/12/19 08:36 Dose: 4 mg Oxycodone HCl (Roxycodone Tab*) 5 mg PO Q6H PRN PRN Reason: PAIN - SEVERE Last Admin: 02/12/19 08:36 Dose: 5 mg Pantoprazole Sodium (Protonix Tab*) 40 mg PO DAILY [facility] Last Admin: 02/12/19 08:38 Dose: 40 mg Prochlorperazine (Compazine Tab*) 10 mg PO Q8H PRN PRN Reason: NAUSEA Last Admin: 02/10/19 07:58 Dose: 10 mg Senna (Senokot 8.6 Mg Tab*) 2 tab PO BEDTIME PRN PRN Reason: CONSTIPATION Last Admin: 02/07/19 11:37 Dose: 2 tab Vital Signs - 8 hr 02/12/19 02/12/19 02/12/19 07:15 07:45 08:36 Temperature 98.7 F Pulse Rate 93 Respiratory 18 16 18 Rate Blood Pressure 176/81 (mmHg) O2 Sat by Pulse 99 Oximetry 02/12/19 02/12/19 11:15 12:23 Temperature 98.5 F Pulse Rate 90 Respiratory 16 14 Rate Blood Pressure 166/83 (mmHg) O2 Sat by Pulse 99 Oximetry Oxygen Devices in Use Now: None Exam: Appearance: alert, no distress Eyes: No Scleral Icterus Ears/Nose/Mouth/Throat: Clear Oropharnyx Neck: NL Appearance and Movements; NL JVP, tunnelled catheter RT neck Respiratory: Symmetrical Chest Expansion and Respiratory Effort, Clear to Auscultation Cardiovascular: NL Sounds; No Murmurs; No JVD Abdominal: NL Sounds; No Tenderness; No Distention; Neurological: Alert and Oriented x 3 - Nutrition: Malnutrition Diagnosis/Plan Malnutrition Assessment by Registered Dietitian: Malnutrition Assessment Clinical Characteristics Acute,Severe Malnutrition Assessment: Inadequate Oral Intake - Pt reports a poor Criteria appetite x1 wk; consumed 25% majority of meals, currently NPO - Anticipate meeting <50% nutrient needs >5 days (severe) Unintentional Weight Loss - Pt reports unintentional wt loss x1 wk; current wt 125lb, UBW 130lb x1 wk ago - 3.8% loss x1 wk (severe) Malnutrition Assessment: Nutritional Supplementals/Nourishments - Pt not Interventions amenable to nourishments/supplements at this time; encourage pt to prioritize protein containing foods at meal times and request foods as desired; pt receptive Glycemic Control - Recommend advancing diet to consistent carb as able; will continue to monitor BG/FS in the setting of T1DM Labs - Recommend advancing diet to renal as able ; will continue to monitor labs closely in the setting of ESRD w/ plans for HD GI Related - Recommend continuing pain mgmt and antiemetic PRN; will monitor GI s/sx for impact on intake Education - Pt denies need for consistent carb diet education at this time; provided pt w/ renal diet education; see Nutrition Education under Patient Care tab for details; will remain available to answer questions regarding nutrition education as able Malnutrition Assessment: Goals 1) Adequate po intake to support lean body mass and hydration status 2) Improve fluid/electrolyte balance w/ adequate po intake, restriction, and medical intervention in the setting of ESRD 3) Improve glycemic control w/ adequate po and consistent carb intake in the setting of T1DM 4) Maintain bowel regularity w/ adequate po intake w/o development of diarrhea/constipation 5) Questions regarding nutrition education/diet will be answered prior to d/c Result Diagrams: 02/11/19 05:45 02/11/19 05:44 Assess/Plan/Problems-Billing Assessment: 38 y/o male with history of T1DM, ESRD not on dialysis, depression, presented with worsening lower back pain , intermittent nausea and vomitting, currently planning to initiate dialysis while controlling his pain. - Patient Problems (1) ESRD (end stage renal disease) Status: Acute Priority: Medium Code(s): N18.6 - END STAGE RENAL DISEASE SNOMED Code(s): 80744903 Comment: -diabetic nephrosclerosis seen on biopsy -had a fistula done 01/19, not yet matured. -Tunnelled dialysis catheter was inserted last Saturday with no complications -plan for 3nd session dialysis tomorrow and discharge to outpatient dialysis center (2) Flank pain Status: Acute Priority: High Code(s): R10.9 - UNSPECIFIED ABDOMINAL PAIN SNOMED Code(s): 888379516 Comment: - recent left kidney biopsy with hematoma post procedure, likely diabetic neuropathy - worsening flank pain 1 month after procedure, differential nephrolithiasis, renal osteodystrophy - US kidney showing right 6mm kidney stone, no obstruction seen - pain control with oxycodone Q6h prn for severe pain (3) Type 1 diabetes mellitus with nephropathy Status: Acute Priority: Medium Code(s): E10.21 - TYPE 1 DIABETES MELLITUS WITH DIABETIC NEPHROPATHY SNOMED Code(s): 07815646 Comment: - initially had hypoglycemia , likely due to ESRF status, now resolved - increase glargine to 20U right now (4) Hyponatremia Status: Acute Priority: Medium Code(s): E87.1 - HYPO-OSMOLALITY AND HYPONATREMIA SNOMED Code(s): 92054863 Comment: -asymptomatic except vomiting which could be related to uremic status -Likely chronic dilutional hyponatremia due to ESRF status, could also be set point shift which has been happening. - supposed to have blood draw today, patient refuse, will do before dialysis tomorrow Status and Disposition: Inpatient Medicine. Will complete dialysis inpatient on Saturday and discharge for outpt dialysis after that Attestation Documenting Resident: Kori Tracy Supervising Physician: Lucian Walker Attending/Supervising Physician Comment: Unfortunately the Patient left AMA. Signed paperwork after risks explained. See discharge summary Attestation: This service has been performed in part by a resident under the direction of a teaching physician.I, Lucian Walker, performed the service, or was physically present during the critical, or murillo portions of the service, furnished by the resident. I participated in the management of the patient.
[2019-02-12] MEDS ORDERED: Insulin GLARGINE(*) 1 UNITS UNIT SUBCUT SCH (21:00)
--- NOTE | 2019-02-13 11:11 | PN ---
AMENDED REPORT NOW INCLUDES DATE OF VISIT PROGRESS NOTE: DATE OF VISIT: 02/13/19 1. Please note the patient signed out against medical advice yesterday and the patient not in the hospital. We have contacted him from the dialysis unit to make an exception and see if he can come for a one time visit to the outpatient dialysis today on Saturday, but unable to contact the patient. Have left voice mails. 2. The patient's routine dialysis spot was supposed to start on Saturday. We will continue to try contacting the patient. [id number]/[facility]: [id number] DESHAUN
--- NOTE | 2019-02-13 17:23 | DS ---
DISCHARGE SUMMARY: DATE OF ADMISSION: 02/04/19 DATE OF LEAVING AGAINST MEDICAL ADVICE: 02/12/19 PRIMARY CARE PROVIDER: His primary care doctor had been Dr. De Paz, but he plans to establish with [facility] going forward. ADMITTING PROVIDER: Dr. Baylee Batres. ATTENDING PHYSICIAN ON DAY OF DISCHARGE: Dr. Lucian Walker. RESIDENT PHYSICIAN: Kori Tracy CHIEF COMPLAINT: Nausea, vomiting, weakness, flank pains, dizziness. PRINCIPAL DIAGNOSES: 1. End-stage renal disease with uremic symptoms with new initiation of hemodialysis. 2. Iron-deficiency anemia. 3. 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 HISTORY OF PRESENT ILLNESS/HOSPITAL COURSE: Barron Simmons is a 38-year-old male with past medical history of diabetes mellitus type 1, recent progression to end- stage renal disease with recent renal biopsy on 01/06/19 showing near total glomerulosclerosis, interstitial fibrosis and tubular atrophy associated with diabetic nephropathy. He has had multiple hospitalizations over the last 2 months and he had mostly been worked up at [facility] where he had his kidney biopsy back in December. More specifically, between 12/30/18 and 01/09/19 , he was at [facility] in the ICU with pulmonary edema and acute on chronic respiratory failure. He had a biopsy on 01/06/19 and was then admitted to Psychiatry at [facility] due to suicidal statements. He had outpatient fistula created with vascular surgeon in [place] on 01/19/19. [place] [facility] [place] on 01/22/19 and was transferred to [facility] for suspicion for needing dialysis. Ultimately, [facility] admission was between 01/23/19 and 01/26/19 and they did not think he needed urgent dialysis and he in fact did not get it. He did have another episode of suicidal ideation and was admitted to Psychiatry from 01/26/19 to 01/27/19. He presented [place] [facility] on the day of admission with again nausea, vomiting, decreased appetite, weakness, dizziness. Nephrology recommended admission and placement of a PermCath given suspicion that uremic symptoms were causing his nausea, vomiting. The patient' s initial creatinine was 7.45, BUN was 60, potassium 4.5, sodium of 123, lactic acid 2.3, BNP greater than 1300, hemoglobin 10.6. He had a chest x-ray, which demonstrated improved aeration compared to 01/22/19. Dr. Santa Gardner of Nephrology consulted on the patient. Unfortunately, the patient did not consent to placement of a PermCath unless he would receive general anesthesia given what he reported to be PTSD-like symptoms related to previous IVs. This delayed the initiation of hemodialysis. He did get the dialysis catheter placed on the night of 02/06/19 and his first dialysis session was on 02/09/19. His sodium levels continued to remain low despite approximately 2 L of normal saline over the first 3 hospital days, although did come up to 125 and 126. Ultimately, on 02/09/19 hospital day #6, the serum osmolality was checked. It was 285 within normal limits with a uric acid level within normal limits at 6.7, urine osmolality of 284 and urine sodium concentration of 20. Dr. Prieto thought that the patient likely had some degree of reset of his osmostat and that further treatment would be addressed with changing the dialysis sodium concentration. His iron levels were checked and below 20 with iron sat of 8, a ferritin level of 37.9 and he was started on iron supplementation. He had complained during the middle of his hospitalization that he had only had 3 to 4 bowel movements over the last 30 days in the setting of being prescribed some opioid medication for his worsening flank pain over the last 6 to 8 weeks prior to admission. His bowel regimen was escalated and he did also have improvement in his nausea, vomiting with initiation of hemodialysis. He did report a history of diabetic gastroparesis diagnosed in [place] many years ago, but then reportedly repeat testing up in [place] did show a normal study and he had been taken off of the Reglan which he had previously found somewhat effective by Dr. De Paz in the recent past. He had been following with Dr. De Paz, but they have had what sounds like a falling-out and he no longer wants to follow with him. Major goal of admission was also to establish outpatient dialysis chair and this was ultimately established at [facility] with initiation date of 02/17/19, with earliest session. The plan was to dialyze him one more time on 02/13/19, giving him only 4 days between dialysis sessions; however, the patient wanted to leave the hospital against medical advice on and he was deemed to have capacity to do so. His sodium when last checked was 122. Again, this was associated with normal serum osmolality. Notably, on review of records from [facility], he had had an echocardiogram , which showed severe dysfunction. An echocardiogram was repeated here on 02/10 that showed again ejection fraction 20% to 25% with global hypokinesis. The mitral valve showed [id number] regurgitation. There was trace aortic valve regurgitation, trace tricuspid valve regurgitation. 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 The patient was intermittently hypertensive and was started on lisinopril 5 and nifedipine, the former to also help with renal protection and cardiac remodeling. This potentially could be up-titrated as an outpatient with consideration also for spironolactone (if compliant with hemodialysis). DISCHARGE MEDICATIONS: Include: 1. Carvedilol 12.5 mg p.o. b.i.d. 2. Docusate 100 mg p.o. daily (new). 3. Ferrous sulfate 325 mg p.o. daily (new). 4. Hydralazine 50 mg p.o. b.i.d. 5. Lantus 20 units q.p.m. with lispro sliding scale. 6. Lisinopril 5 mg p.o. daily (new). 7. Reglan 5 mg p.o. t.i.d. p.r.n. (new), has used in the recent past. 8. Nifedipine 30 mg p.o. daily. 9. Oxycodone 5 mg p.o. q.6 hours p.r.n. for 60 tabs (new). 10. Protonix 40 mg p.o. daily. 11. Senna 2 tabs p.o. q.h.s. p.r.n. for diarrhea (new). FOLLOWUP: Please follow up with the [facility] within the next 7 days. He is scheduled to start his outpatient dialysis session on Saturday, 06/03 with earliest session and his transportation through Medicaid cab had been arranged and confirmed. He notably reports that he [place] 1[place]8 miles from the nearest bus stop in [place], presenting significant challenges to making his appointments as Medicaid cabs often do not show up and he cannot walk especially in the winter to catch the bus. He has no car. Notably, his and he are considering buying a house in [place] in the future. DISCHARGE DIET: Heart-healthy, renal diet. DISPOSITION: Home against medical advice. CONDITION: Guarded. TIME SPENT ON DISCHARGE: 50 minutes. [id number]/[facility] #: [id number] DESHAUN
== END 2019-02-12 13:35 | disposition left against medical advice (07) | DRG 194 ==
LOC: ED 18:34 → MEDTELE 21:54
PROVIDERS: ADMIT Student in an Organized Health Care Education/Training Program; ATTEND Internal Medicine
PROC: 05HM33Z Insertion of Infusion Device into Right Internal Jugular Vein, Percutaneous Approach (ICD-10-PCS; 2019-02-06)
PROC: B513ZZA Fluoroscopy of Right Jugular Veins, Guidance (ICD-10-PCS; 2019-02-06)
PROC: 0JH63XZ Insertion of Tunneled Vascular Access Device into Chest Subcutaneous Tissue and Fascia, Percutaneous Approach (ICD-10-PCS; principal; 2019-02-06 16:45)
PROC: 5A1D70Z Performance of Urinary Filtration, Intermittent, Less than 6 Hours Per Day (ICD-10-PCS; 2019-02-09)
DX: I13.2 Hypertensive heart and chronic kidney disease with heart failure and with stage 5 chronic kidney disease, or end stage renal disease (principal); N18.6 End stage renal disease; I50.20 Unspecified systolic (congestive) heart failure; E87.1 Hypo-osmolality and hyponatremia; E10.21 Type 1 diabetes mellitus with diabetic nephropathy; E10.22 Type 1 diabetes mellitus with diabetic chronic kidney disease; K21.9 Gastro-esophageal reflux disease without esophagitis; E10.43 Type 1 diabetes mellitus with diabetic autonomic (poly)neuropathy; K31.84 Gastroparesis; F41.9 Anxiety disorder, unspecified; F43.10 Post-traumatic stress disorder, unspecified; K90.0 Celiac disease; F31.9 Bipolar disorder, unspecified; I08.3 Combined rheumatic disorders of mitral, aortic and tricuspid valves; Z66 Do not resuscitate; D63.1 Anemia in chronic kidney disease; D50.9 Iron deficiency anemia, unspecified; F17.210 Nicotine dependence, cigarettes, uncomplicated; Z91.018 Allergy to other foods; Z99.2 Dependence on renal dialysis; Z53.29 Procedure and treatment not carried out because of patient's decision for other reasons; Z79.4 Long term (current) use of insulin
CPT/HCPCS: 36415; 36558; 71046; 76000; 76770; 76937; 77001; 80048; 80053; 81003; 81015; 82728; 82947; 83540; 83550; 83605; 83690; 83735; 83880; 83930; 83935; 84100; 84300; 84443; 84550; 85025; 85610; 86140; 86704; 86706; 86707; 86803; 87086; 87340; 87350; 90935; 93005; 93306; 96374; 99284; A9270-GY; C1750; G0257; J0780; J1644; J1756; J1940; J2250; J2405; J2704; J3010; Q0164; Q5106

== ENCOUNTER 2019-03-26 06:20 | Emergency (ER) | payer OTHER ==
--- OUTSIDE RECORDS SUMMARY | 2019-03-26 06:41 | XMS REPORT | Continuity of Care Document ---
:1980 External Reference #:[id number] Author Name Lucie Schneider M.D. (transmitted by agent of provider Lia Tse) Address [address] [place] [address] Care Team Providers Name Role Phone Victor Manuel Anand MD - Family Medicine Care Team Information Medical Delivery Technician [phone] Problems Description No Information Available Social History Type Date Description Comments Sex Unknown Allergies, Adverse Reactions, Alerts Description No Information Available Medications Description No Information Available Immunizations Description No Information Available Vital Signs Description No Information Available Results Description No Information Available Procedures Description No Information Available Medical Devices Description No Information Available Encounters Type Date Location Provider Dx Diagnosis Office Visit 08/17/2018 [facility] Luzma E10.9 Type 1 diabetes 9:16a [facility],juan manuel Moore NP mellitus without Hospitalists complications Z79.4 USP (current) use of insulin Z51.81 Encounter for therapeutic drug level monitoring Assessments Date Code Description Provider 01/22/2019 N17.9 Acute kidney failure, unspecified Luzma Moore NP 01/22/2019 I12.9 Hypertensive chronic kidney disease with stage Luzma Moore NP 1 through stage 4 chronic kidney disease, or unspecified chronic kidney disease 01/22/2019 N18.4 Chronic kidney disease, stage 4 (severe) Luzma Moore NP 01/22/2019 R94.31 Abnormal electrocardiogram [ECG] [EKG] Luzma Moore NP 08/17/2018 E10.9 Type 1 diabetes mellitus without complications Luzma Moore NP 08/17/2018 Z79.4 USP (current) use of insulin Luzma Moore NP 08/17/2018 Z51.81 Encounter for therapeutic drug level Luzma Moore NP monitoring Plan of Treatment No Information Available Functional Status Description No Information Available Mental Status Description No Information Available Referrals Description No Information Available
--- OUTSIDE RECORDS SUMMARY | 2019-03-26 06:41 | XMS REPORT | Continuity of Care Document ---
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 [phone] Problems Active Problems Provider Date End-stage renal disease Kori Tracy MD Onset: 02/26/2019 Anemia of chronic renal failure Kori Tracy MD Onset: 02/26/2019 Iron deficiency anemia Kori Tracy MD Onset: 02/26/2019 Type 1 diabetes mellitus Kori Tracy MD Onset: 02/26/2019 End stage renal failure on dialysis Kori Tracy MD Onset: 02/26/2019 Social History Type Date Description Comments Sex Unknown Tobacco Use Start: Unknown Light tobacco smoker (10 or fewer cigarettes/day) Smoking Status Reviewed: 02/26/19 Light tobacco smoker (10 or fewer cigarettes/day) ETOH Use Denies alcohol use Tobacco Use Start: Unknown Light tobacco smoker (10 or fewer cigarettes/day) Recreational Drug Use 02/26/2019 Former Drug User Use [employer] in the past Allergies, Adverse Reactions, Alerts Active Allergies Reaction Severity Comments Date Gluten 02/26/2019 Medications Active Medications SIG Qnty Indications Ordering Provider Date Carvedilol 1 by mouth twice 60tabs I10 Lucian Walker MD 02/26/2019 12.5mg Tablets a day Blood Pressure Kit 1 bp kit 1units Lucian Walker MD 02/26/2019 Kit Lisinopril 1 by mouth every 30tabs Lucian Walker MD 5mg Tablets day Oxycodone HCL 1 tabs by mouth 30tabs Lucian Walker MD 5mg Tablets every 12 hours as needed for severe pain Pantoprazole Sodium 1 by mouth twice 60tabs Lucian Walker MD 40mg daily with meals Tablets DR Nidhi Lamar 18 units once Unknown daily 100Unit/ML Solution Pen-Inject Admelog pt uses sliding Unknown 100Unit/ML scale daily as Solution needed Immunizations CPT Code Status Date Vaccine Reaction Lot # [id number] Given 02/26/2019 Hepatitis B Vaccine Adult shot tolerated well, no [id number] Dosage immediate reaction Vital Signs Date Vital Result Comment 02/26/2019 1:53pm Height 69 inches 5'9" Weight 134.38 lb Heart Rate 95 /min BP Systolic 129 mmHg BP Diastolic 87 mmHg Body Temperature 97.9 F O2 % BldC Oximetry 94 % BMI (Body Mass Index) 19.8 kg/m2 Results Description No Information Available Procedures Date Code Description Status 02/11/2019 54142 Hemodialysis, One Evaluation Completed 02/10/2019 96716 ECHO Transthorasic Realtime 2D W Doppler & Color Flow Hosp Completed 02/10/2019 79158 Hemodialysis, One Evaluation Completed 02/09/2019 55965 Hemodialysis, One Evaluation Completed 02/06/2019 41651 Fluoroscopic Guidance For Cent Completed 02/06/2019 28743 Insertion Tunneled Cent Venous Cathr W Subcut Port 5 Yrs Completed Or Oldr Medical Devices Description No Information Available Encounters Type Date Location Provider Dx Diagnosis Office Visit 02/12/2019 [facility] Lucian Walker MD E10.22 Type 1 diabetes 10:37a juan manuel Conner Hospitalists mellitus w diabetic chronic kidney disease N18.6 End stage renal disease Z99.2 Dependence on renal dialysis D50.9 Iron deficiency anemia, unspecified Office Visit 02/11/2019 10:36a [facility] Lucian Walker, R10.9 Unspecified Assjuan manuel jimenes MD abdominal pain Hospitalists 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 N18.6 End stage renal disease Z99.2 Dependence on renal dialysis E87.1 Hypo-osmolality and hyponatremia Office Visit 02/10/2019 10:36a [place] Pablo Walker, R10.9 Unspecified juan manuel Conner MD abdominal pain Hospitalists 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 N18.6 End stage renal disease E87.1 Hypo-osmolality and hyponatremia Office Visit 02/06/2019 7:00a [facility] Lucia Sherman, N18.6 End stage renal Of [facility] MD disease Office Visit 02/06/2019 8:59a [facility] Nephrology Santa Gardner, N18.6 End stage renal MD disease Z53.29 Proc/trtmt not crd out bec pt decision for oth reasons Office Visit 02/05/2019 [facility] Mart Hernandez R10.9 Unspecified 10:35a Assoc,juan manuel Segundo M.D.,FACP abdominal pain Hospitalists 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 disease w Hospitalists stage 5 chr kidney disease or Esrd N18.6 End stage renal disease K21.9 Gastro-esophageal reflux disease without esophagitis F32.9 Major depressive disorder, single episode, unspecified Office Visit 01/22/2019 [facility] Luzma N17.9 Acute kidney 10:35a Assocjuan manuel, LOCATE TECHNICIAN failure, 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 I12.9 Hypertensive chronic kidney disease w stg 1-4/unsp chr kdny N18.4 Chronic kidney disease, stage 4 (severe) R94.31 Abnormal electrocardiogram [ECG] [EKG] Assessments Date Code Description Provider 02/26/2019 N18.6 End stage renal disease Kori Tracy MD 02/26/2019 E87.1 Hypo-osmolality and hyponatremia Kori Tracy MD 02/26/2019 I50.9 Heart failure, unspecified Kori Tracy MD 02/26/2019 D63.1 Anemia in chronic kidney disease Kori Tracy MD 02/26/2019 D50.9 Iron deficiency anemia, unspecified Kori Tracy MD 02/26/2019 E08.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 02/26/2019 Z23 Encounter for immunization Kori Tracy MD 02/26/2019 I10 Essential (primary) hypertension Kori Tracy MD 02/26/2019 M54.5 Low back pain Kori Tracy MD 02/12/2019 E10.22 Type 1 diabetes mellitus with Lucian Walker MD diabetic chronic kidney disease 02/12/2019 N18.6 End stage renal disease Lucian Walker MD 02/12/2019 Z99.2 Dependence on renal dialysis Lucian Walker MD 02/12/2019 D50.9 Iron deficiency anemia, unspecified Lucian Walker MD 02/11/2019 N18.6 End stage renal disease Yisel Prieto MD 02/11/2019 R10.9 Unspecified abdominal pain Lucian Walker MD 02/11/2019 E10.22 Type 1 diabetes mellitus with Lucian Walker MD diabetic chronic kidney disease 02/11/2019 N18.6 End stage renal disease Lucian Walker MD 02/11/2019 Z99.2 Dependence on renal dialysis Lucian Walker MD 02/11/2019 E87.1 Hypo-osmolality and hyponatremia Lucian Walker MD 02/10/2019 N18.6 End stage renal disease Yisel Prieto MD 02/10/2019 I50.9 Heart failure, unspecified Chico Walls M.D. 02/10/2019 R10.9 Unspecified abdominal pain Lucian Walker MD 02/10/2019 E10.22 Type 1 diabetes mellitus with Lucian Walker MD diabetic chronic kidney disease 02/10/2019 N18.6 End stage renal disease Lucian Walker MD 02/10/2019 Z99.2 Dependence on renal dialysis Lucian Walker MD 02/10/2019 E87.1 Hypo-osmolality and hyponatremia Lucian Walker MD 02/10/2019 I50.22 Chronic systolic (congestive) heart Lucian Walker MD failure 02/09/2019 N18.6 End stage renal disease Yisel Prieto MD 02/09/2019 R10.9 Unspecified abdominal pain Lucian Walker MD 02/09/2019 E10.22 Type 1 diabetes mellitus with Lucian Walker MD diabetic chronic kidney disease 02/09/2019 Z99.2 Dependence on renal dialysis Lucian Walker MD 02/09/2019 N18.6 End stage renal disease Lucian Walker MD 02/09/2019 E87.1 Hypo-osmolality and hyponatremia Lucian Walker MD 02/08/2019 R10.9 Unspecified abdominal pain Mart Segundo M.D.,FACP 02/08/2019 I12.0 Hypertensive chronic kidney disease Santa Gardner MD with stage 5 chronic kidney disease or end stage renal disease 02/08/2019 E10.22 Type 1 diabetes mellitus with [facility] diabetic chronic kidney disease 02/08/2019 N18.6 End stage renal disease Santa Gardner MD 02/08/2019 I12.0 Hypertensive chronic kidney disease Mart Segundo M.D. ,[facility] with stage 5 chronic kidney disease or end stage renal disease 02/08/2019 N18.6 End stage renal disease Mart Segundo [facility] 02/08/2019 D63.1 Anemia in chronic kidney disease Mart Segundo M.D., FACP 02/08/2019 E87.1 Hypo-osmolality and hyponatremia Mart Segundo M.D., FACP 02/07/2019 R10.9 Unspecified abdominal pain Mart Segundo M.D.,[facility] 02/07/2019 I12.0 Hypertensive chronic kidney disease Santa Gardner MD with stage 5 chronic kidney disease or end stage renal disease 02/07/2019 E10.22 Type 1 diabetes mellitus with Mart Segundo M.D.,[facility] diabetic chronic kidney disease 02/07/2019 N18.6 End stage renal disease Lucia Sherman MD 02/07/2019 N18.6 End stage renal disease Mart Segundo M.D.,FACP 02/07/2019 N18.6 End stage renal disease Santa Gardner MD 02/07/2019 E87.1 Hypo-osmolality and hyponatremia Mart Segundo M.[facility]., [facility] 02/07/2019 D63.1 Anemia in chronic kidney disease Santa Gardner MD 02/07/2019 Z91.19 Patient's noncompliance with other Santa Gardner MD medical treatment and regimen 02/06/2019 R10.9 Unspecified abdominal pain Mart Segundo M.D[facility] 02/06/2019 N18.6 End stage renal disease Santa Gardner MD 02/06/2019 E10.22 Type 1 diabetes mellitus with Mart Segundo M.D[facility] diabetic chronic kidney disease 02/06/2019 N18.6 End stage renal disease Lucia Sherman MD 02/06/2019 N18.6 End stage renal disease Mart Segundo M.[facility] 02/06/2019 Z53.29 Procedure and treatment not carried Santa Gardner MD out because of patient's decision for other reasons 02/06/2019 E87.1 Hypo-osmolality and hyponatremia Mart Segundo M.D., [facility] 02/06/2019 N18.6 End stage renal disease Lucia Sherman MD 02/05/2019 R10.9 Unspecified abdominal pain Mart Segundo M.D.,[facility] 02/05/2019 I12.0 Hypertensive chronic kidney disease Santa Gardner MD with stage 5 chronic kidney disease or end stage renal disease 02/05/2019 E10.22 Type 1 diabetes mellitus with Mart Segundo M.D.,[facility] diabetic chronic kidney disease 02/05/2019 N18.6 End stage renal disease Santa Gardner MD 02/05/2019 N18.6 End stage renal disease Mart Segundo [facility] 02/05/2019 E10.22 Type 1 diabetes mellitus with Santa Gardner MD diabetic chronic kidney disease 02/05/2019 E87.1 Hypo-osmolality and hyponatremia Mart Segundo M.D., [facility] 02/05/2019 F12.90 Cannabis use, unspecified, Santa Gardner MD uncomplicated 02/05/2019 Z53.29 Procedure and treatment not carried Santa Gardner MD out because of patient's decision for other reasons 02/04/2019 I12.0 Hypertensive chronic kidney disease Hannah Bueno M.D. with stage 5 chronic kidney disease or end stage renal disease 02/04/2019 N18.6 End stage renal disease Hannah Bueno M.D. 02/04/2019 K21.9 Gastro-esophageal reflux disease Hannah Bueno M.D. without esophagitis 02/04/2019 F32.9 Major depressive disorder, single Hannah Bueno M.D. episode, unspecified 01/22/2019 N17.9 Acute kidney failure, unspecified Luzma Moore NP 01/22/2019 I12.9 Hypertensive chronic kidney disease Luzma Moore NP with stage 1 through stage 4 chronic kidney disease, or unspecified chronic kidney disease 01/22/2019 N18.4 Chronic kidney disease, stage 4 Luzma Moore NP (severe) 01/22/2019 R94.31 Abnormal electrocardiogram [ECG] Luzma Moore NP [EKG] Plan of Treatment Future Appointment(s):04/30/2019 1:00 pm - Nurse Visit [place] at [facility] - [address]/30/2019 1:00 pm - Nurse Visit [place] at [facility] - [address]/22/2019 10:45 am - Kori Tracy MD at [facility] - [address]/29/2018 - Kori Tracy MDN18.6 End stage renal diseaseReferral:Katy Hayden MD, NephrologyFollow up:Follow up in 3 months.E87.1 Hypo- osmolality and iojqjxhyponbS57.9 Heart failure, unspecifiedReferral:Thang Brandt DO, FACC, Cardiovsclr BljjbjxE77.1 Anemia in chronic kidney myzjyuhN07.9 Iron deficiency anemia, afsiyyvraoyJ24.311 Diabetes mellitus due to underlying condition with unspecified diabetic retinopathy with macular edemaComments:Diabetes with retinopathy and nephropathyPlease see an eye doctor for follow up.Referral:Markos Rivera MD, [id number] Encounter for immunizationFollow up:Set up nurse visit for subsequent 2 doses of hep BI10 Essential (primary) hypertensionNew Medication:Carvedilol 12.5 mg - 1 by mouth twice a dayComments:Please measure your bp once you got a machine. let us know if BP is not controlled (target BP 140/90mmhg)M54.5 Low back pain Functional Status Description No Information Available Mental Status Description No Information Available Referrals Refer to Reason for Referral Status Appt Date Markos Rivera MD Diabetic retinopathy, for eye exam Created [address] [place] [address] [phone] Thang Brandt DO, [facility] T1DM, ESRF on HD, HFrEF (EF 20%) Sent [address] [place] [address] [phone] Katy Hayden MD ESRD on HD Created [address] [place] [address] [phone]
--- OUTSIDE RECORDS SUMMARY | 2019-03-26 06:41 | XMS REPORT | Continuity of Care Document ---
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 No Information Available Social History Type Date Description Comments Sex Unknown Tobacco Use Start: Unknown Light tobacco smoker (10 or fewer cigarettes/day) Smoking Status Reviewed: 06/10/18 Light tobacco smoker (10 or fewer cigarettes/day) Allergies, Adverse Reactions, Alerts Active Allergies Reaction Severity Comments Date Gluten Nausea 03/25/2019 Medications Active Medications SIG Qnty Indications Ordering Date Provider Basaglkarime Kwikpen Inject 25 Units Unknown Subcutaneously In The 100Unit/ML Solution Morning Pen-Inject Admelog Inject 1 Unit For Unknown 100Unit/ML Fasting Blood Glucose Solution 200 Increase By 1 Unit For Every 25MG Glucose 200 Limit 10 Units Per Injection 1 Injection 3 To 4 Ti Immunizations Description No Information Available Vital Signs Date Vital Result Comment 03/25/2019 1:49pm Height 69 inches 5'9" Weight 130.00 lb BP Systolic 114 mmHg BP Diastolic 84 mmHg BMI (Body Mass Index) 19.2 kg/m2 Heart Rate 96 /min Respiratory Rate 18 /min Pain Level 5 out of 10 Results Description No Information Available Procedures Description No Information Available Medical Devices Description No Information Available Encounters Description No Information Available Assessments Date Code Description Provider 03/25/2019 Z68.1 Body mass index (BMI) 19.9 or less, adult Luis Alberto Hong Plan of Treatment No Information Available Functional Status Description No Information Available Mental Status Description No Information Available Referrals Description No Information Available
--- OUTSIDE RECORDS SUMMARY | 2019-03-26 06:41 | XMS REPORT | Continuity of Care Document ---
:1980 External Reference #:[id number] Author Name Kori Tracy MD (transmitted by agent of provider Pham Small) Address [address] [facility] [place] [address] Care Team Providers Name Role Phone Lucian Walker MD - Hospitalist Care Team Information Flexo Folder Gluer Operator [phone] Problems Description No Information Available Social History [...] Code Status Date Vaccine Reaction Lot # [id number] Given 02/26/2019 Hepatitis B Vaccine Adult shot [...] Available Procedures Date Code Description Status 02/11/2019 19177 Hemodialysis, One Evaluation Completed 02/10/2019 94931 ECHO Transthorasic Realtime 2D W Doppler & Color Flow Hosp Completed 02/10/2019 28526 Hemodialysis, One Evaluation Completed 02/09/2019 62974 Hemodialysis, One Evaluation Completed 02/06/2019 56578 Fluoroscopic Guidance For Cent Completed 02/06/2019 14388 Insertion Tunneled Cent Venous Cathr W Subcut Port 5 Yrs Completed Or Oldr Medical Devices Description No Information Available Encounters Type Date Location Provider Dx Diagnosis Office Visit 02/12/2019 [facility] Lucian Walker MD E10.22 Type 1 diabetes 10:37a juan manuel Conner Hospitalists mellitus w diabetic chronic kidney disease N18.6 End stage renal disease Z99.2 Dependence on renal dialysis D50.9 Iron deficiency anemia, unspecified Office Visit 02/11/2019 10:36a [facility] Lucian Walker, R10.9 Unspecified Assjuan manuel jimenes MD abdominal pain Hospitalists 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 N18.6 End stage renal disease Z99.2 Dependence on renal dialysis E87.1 Hypo-osmolality and hyponatremia Office Visit 02/10/2019 10:36a [facility] Lucian Walker, R10.9 Unspecified juan manuel Conner MD abdominal pain Hospitalists 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 N18.6 End stage renal disease Z99.2 Dependence on renal dialysis E87.1 Hypo-osmolality and hyponatremia I50.22 Chronic systolic (congestive) heart failure Office Visit 02/09/2019 10:36a [facility] Lucian Walker, R10.9 Unspecified juan manuel Conner MD abdominal pain Hospitalists 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 Dependence on renal dialysis N18.6 End stage renal disease E87.1 Hypo-osmolality and hyponatremia Office Visit 02/08/2019 [facility] Mart Hernandez R10.9 Unspecified 10:35a Assjuan manuel jimenes M.D.,FACP abdominal pain Hospitalists 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6 End stage renal disease K21.9 Gastro-esophageal reflux disease without esophagitis F32.9 Major depressive disorder, single episode, unspecified Office Visit 01/22/2019 [facility] Luzma N17.9 Acute kidney 10:35a Assoc,juan manuel Moore, 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, 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 I12.9 Hypertensive chronic kidney [...] I10 Essential (primary) hypertension Kori Tracy MD 02/12/2019 E10.22 Type 1 [...] 02/08/2019 R10.9 Unspecified abdominal pain Mart Segundo M.D.,[facility] 02/08/2019 I12.0 Hypertensive chronic kidney disease Santa Gardner MD with stage 5 chronic kidney disease or end stage renal disease 02/08/2019 E10.22 Type 1 diabetes mellitus with Mart Segundo M.D.,[facility] diabetic chronic kidney disease 02/08/2019 N18.6 End stage renal disease Santa Gardner MD 02/08/2019 I12.0 Hypertensive chronic kidney disease Mart Segundo M.D. ,[facility] with stage 5 chronic kidney disease or end stage renal disease 02/08/2019 N18.6 End stage renal disease Mart Segundo M.D.,[facility] 02/08/2019 D63.1 Anemia in chronic kidney disease Mart Segundo M.D., [facility] 02/08/2019 E87.1 Hypo-osmolality and hyponatremia Mart Segundo M.D., [facility] 02/07/2019 R10.9 Unspecified abdominal pain Mart Segundo M.D.,[facility] 02/07/2019 I12.0 Hypertensive chronic kidney disease Santa Gardner MD with stage 5 chronic kidney disease or end stage renal disease 02/07/2019 E10.22 Type 1 diabetes mellitus with Mart Segundo M.D.,[facility] diabetic chronic kidney disease 02/07/2019 N18.6 End stage renal disease Lucia Sherman MD 02/07/2019 N18.6 End stage renal disease Mart Segundo M.D.,[facility] 02/07/2019 N18.6 End stage renal disease Santa Gardner MD 02/07/2019 E87.1 Hypo-osmolality and hyponatremia Mart Segundo M.D., [facility] 02/07/2019 D63.1 Anemia in chronic kidney disease Santa Gardner MD 02/07/2019 Z91.19 Patient's noncompliance with other Santa Gardner MD medical treatment and regimen 02/06/2019 R10.9 Unspecified abdominal pain Mart Segundo M.D.,[facility] 02/06/2019 N18.6 End stage renal disease Santa Gardner MD 02/06/2019 E10.22 Type 1 diabetes mellitus with Mart Segundo M.D.,[facility] diabetic chronic kidney disease 02/06/2019 N18.6 End stage renal disease Lucia Sherman MD 02/06/2019 N18.6 End stage renal disease Mart Segundo M.D.,[facility] 02/06/2019 Z53.29 Procedure and treatment not carried Santa Gardner MD out because of patient's decision for other reasons 02/06/2019 E87.1 Hypo-osmolality and hyponatremia Mart Segundo M.D., [facility] 02/06/2019 N18.6 End stage renal disease Lucia Sherman MD 02/05/2019 R10.9 Unspecified abdominal pain Mart Segundo M.D.,[facility] 02/05/2019 I12.0 Hypertensive chronic kidney disease Santa Gardner MD with stage 5 chronic kidney disease or end stage renal disease 02/05/2019 E10.22 Type 1 diabetes mellitus with Mart Segundo M.D.,[facility] diabetic chronic kidney disease 02/05/2019 N18.6 End stage renal disease Santa Gardner MD 02/05/2019 N18.6 End stage renal disease Mart Segundo M.D.,[facility] 02/05/2019 E10.22 Type 1 diabetes mellitus with Santa Gardner MD diabetic chronic kidney disease 02/05/2019 E87.1 Hypo-osmolality and hyponatremia Mart Segundo M.D., [facility] 02/05/2019 F12.90 Cannabis use, unspecified, Santa [...] Future Appointment(s):04/30/2019 1:00 pm - Nurse Visit [place] at [facility] Internal Medicine - [address] 03/30/2019 1:00 pm - Nurse Visit [place] at [facility] - [address]/22/2019 10:45 am - Kori Tracy MD at [facility] Medicine - [address]/29/2018 - Kori Tracy MDN18.6 End stage renal diseaseReferral:Katy Hayden MD, NephrologyFollow up:Follow up in 3 months.E87.1 Hypo- osmolality and fbewmwarijiuF23.9 Heart failure, unspecifiedReferral:Thang Brandt DO, FACC, Cardiovsclr ArcujitI22.1 Anemia in chronic kidney pcatmypM00.9 Iron deficiency anemia, pmcvypazzrjP57.311 Diabetes mellitus due to underlying condition with unspecified diabetic retinopathy with macular edemaComments:Diabetes with retinopathy and nephropathyPlease see eye doctorReferral:Markos Rivera MD, [id number] Encounter for immunizationFollow up:Set up nurse visit for subsequent 2 doses of hep BI10 Essential (primary) hypertensionNew Medication:Carvedilol 12.5 mg - 1 by mouth twice a dayComments:Please measure your bp once you got a machine. let us know if BP is not controlled (target BP 140/90mmhg) Functional Status Description No Information Available Mental Status Description No Information Available Referrals Refer to Dr Reason for Referral Status Appt Date Markos Rivera MD Diabetic retinopathy, for eye exam Created [address] [place] [address] [phone] Thang Brandt DO, FACC T1DM, ESRF on HD, HFrEF (EF 20%) Created [address] [place] [address] [phone] Katy Hayden MD ESRD on HD Created [address] [place] [address] [phone]
--- OUTSIDE RECORDS SUMMARY | 2019-03-26 06:41 | XMS REPORT | Continuity of Care Document ---
:1980 External Reference #:[id number] Author Name Stacie Duong Care Team Providers Name Role Phone Lucian Walker MD - Hospitalist Care Team Information Account Receivable Associate [phone] Problems Active Problems Provider Date End-stage renal [...] Drug Use 02/26/2019 Former Drug User Use marijuanna in the past Allergies, Adverse Reactions, Alerts [...] Code Status Date Vaccine Reaction Lot # [id number] Given 02/26/2019 Hepatitis B Vaccine Adult shot [...] Available Procedures Date Code Description Status 02/11/2019 84818 Hemodialysis, One Evaluation Completed 02/10/2019 28156 ECHO Transthorasic Realtime 2D W Doppler & Color Flow Hosp Completed 02/10/2019 81111 Hemodialysis, One Evaluation Completed 02/09/2019 52851 Hemodialysis, One Evaluation Completed 02/06/2019 65493 Fluoroscopic Guidance For Cent Completed 02/06/2019 49437 Insertion Tunneled Cent Venous Cathr W Subcut Port 5 Yrs Completed Or Oldr Medical Devices Description No Information Available Encounters Type Date Location Provider Dx Diagnosis Office Visit 02/12/2019 [facility] Lucian Walker MD E10.22 Type 1 diabetes 10:37a Assjuan manuel jimenes Hospitalists mellitus w diabetic chronic kidney disease N18.6 End stage renal disease Z99.2 Dependence on renal dialysis D50.9 Iron deficiency anemia, unspecified Office Visit 02/11/2019 10:36a [place] Pablo Walker, R10.9 Unspecified Assocjuan manuel MD abdominal pain Hospitalists 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 N18.6 End stage renal disease Z99.2 Dependence on renal dialysis E87.1 Hypo-osmolality and hyponatremia Office Visit 02/10/2019 10:36a [place] Pablo Walker, R10.9 Unspecified Assocjuan manuel MD abdominal pain Hospitalists 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 N18.6 End stage renal disease Z99.2 Dependence on renal dialysis E87.1 Hypo-osmolality and hyponatremia I50.22 Chronic systolic (congestive) heart failure Office Visit 02/09/2019 10:36a [place] Pablo Walker, R10.9 Unspecified juan manuel Conner MD abdominal pain Hospitalists 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 Dependence on renal dialysis N18.6 End stage renal disease E87.1 Hypo-osmolality and hyponatremia Office Visit 02/08/2019 [facility] Matr Hernandez 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 N18.6 End stage renal disease D63.1 Anemia in chronic kidney disease E87.1 Hypo-osmolality and hyponatremia Office Visit 02/08/2019 9:00a [facility] Nephrology Santa Gardner MD 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 or Esrd N18.6 End stage renal disease Office Visit 02/07/2019 [facility] Mart Hernandez 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 N18.6 End stage renal disease E87.1 Hypo-osmolality and hyponatremia Office Visit 02/07/2019 9:00a [facility] Nephrology Santa Gardner MD 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 or Esrd N18.6 End stage renal disease D63.1 Anemia in chronic kidney disease Z91.19 Patient's noncompliance w oth medical treatment and regimen Office Visit 02/06/2019 [facility] Mart Hernandez 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 N18.6 End stage renal disease E87.1 Hypo-osmolality and hyponatremia Office Visit 02/06/2019 7:00a [facility] Lucia Sherman, N18.6 End stage renal Of [facility] MD disease Office Visit 02/06/2019 8:59a [facility] Nephrology Santa Gardner, N18.6 End stage renal MD disease Z53.29 Proc/trtmt not crd out bec pt decision for oth reasons Office Visit 02/05/2019 [facility] Mart Hernandez R10.9 Unspecified 10:35a Assoc,pc Bessie Segundo,FACP abdominal pain Hospitalists 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 N18.6 End stage renal disease E87.1 Hypo-osmolality and hyponatremia Office Visit 02/05/2019 8:58a [facility] Nephrology Santa Gardner MD 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 or Esrd N18.6 End stage renal disease 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 F12.90 Cannabis use, unspecified, uncomplicated Z53.29 Proc/trtmt not crd out bec pt decision for oth reasons Office Visit 02/04/2019 10:34a [facility] Hannahsusana Bueno, I12.0 Hyp chr kidney Assoc,juan manuel La disease w Hospitalists stage 5 chr kidney disease or Esrd N18.6 End stage renal disease K21.9 Gastro-esophageal reflux disease without esophagitis F32.9 Major depressive disorder, single episode, unspecified Office Visit 01/22/2019 [facility] Luzma N17.9 Acute kidney 10:35a Assoc,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 manuel 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, 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, 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 I12.9 Hypertensive chronic kidney [...] MD 02/26/2019 I10 Essential (primary) hypertension Kori Trcay MD 02/26/2019 M54.5 Low back pain Kori Tracy MD 02/12/2019 E10.22 Type 1 diabetes mellitus with Lucian Walker, MD diabetic chronic kidney disease 02/12/2019 N18.6 [...] 02/08/2019 R10.9 Unspecified abdominal pain Mart Segundo M.D.,[facility] 02/08/2019 I12.0 Hypertensive chronic kidney disease Santa Gardner MD with stage 5 chronic kidney disease or end stage renal disease 02/08/2019 E10.22 Type 1 diabetes mellitus with Mart Segundo M.D.,[facility] diabetic chronic kidney disease 02/08/2019 N18.6 End stage renal disease Santa Gardner MD 02/08/2019 I12.0 Hypertensive chronic kidney disease Mart Segundo M.D. ,[facility] with stage 5 chronic kidney disease or end stage renal disease 02/08/2019 N18.6 End stage renal disease Mart Segundo M.D.,[facility] 02/08/2019 D63.1 Anemia in chronic kidney disease Mart Segundo M.D., [facility] 02/08/2019 E87.1 Hypo-osmolality and hyponatremia Mart Segundo M.D., [facility] 02/07/2019 R10.9 Unspecified abdominal pain Mart Segundo M.D.,[facility] 02/07/2019 I12.0 Hypertensive chronic kidney disease Santa Gardner MD with stage 5 chronic kidney disease or end stage renal disease 02/07/2019 E10.22 Type 1 diabetes mellitus with Mart Segundo M.D.,[facility] diabetic chronic kidney disease 02/07/2019 N18.6 End stage renal disease Lucia Sherman MD 02/07/2019 N18.6 End stage renal disease Mart Segundo M.D.,[facility] 02/07/2019 N18.6 End stage renal disease Santa Gardner MD 02/07/2019 E87.1 Hypo-osmolality and hyponatremia Mart Segundo M.D., [facility] 02/07/2019 D63.1 Anemia in chronic kidney disease Santa Gardner MD 02/07/2019 Z91.19 Patient's noncompliance with other Santa Gardner MD medical treatment and regimen 02/06/2019 R10.9 Unspecified abdominal pain Mart Segundo M.D.,[facility] 02/06/2019 N18.6 End stage renal disease Santa Gardner MD 02/06/2019 E10.22 Type 1 diabetes mellitus with Mart Segundo M.D.,[facility] diabetic chronic kidney disease 02/06/2019 N18.6 End stage renal disease Lucia Sherman MD 02/06/2019 N18.6 End stage renal disease Mart Segundo M.D.,[facility] 02/06/2019 Z53.29 Procedure and treatment not carried Santa Gardner MD out because of patient's decision for other reasons 02/06/2019 E87.1 Hypo-osmolality and hyponatremia Mart Segundo M.D., [facility] 02/06/2019 N18.6 End stage renal disease Lucia Sherman MD 02/05/2019 R10.9 Unspecified abdominal pain Mart Segundo M.D.,[facility] 02/05/2019 I12.0 Hypertensive chronic kidney disease Santa Gardner MD with stage 5 chronic kidney disease or end stage renal disease 02/05/2019 E10.22 Type 1 diabetes mellitus with Mart Segundo M.D.,[facility] diabetic chronic kidney disease 02/05/2019 N18.6 End stage renal disease Santa Gardner MD 02/05/2019 N18.6 End stage renal disease Mart Segundo M.D.,[facility] 02/05/2019 E10.22 Type 1 diabetes mellitus with Santa Gardner MD diabetic chronic kidney disease 02/05/2019 E87.1 Hypo-osmolality and hyponatremia Mart Segundo M.D., [facility] 02/05/2019 F12.90 Cannabis use, unspecified, Santa Gardner MD uncomplicated 02/05/2019 Z53.29 Procedure and treatment not carried Snata Gardner MD out because of patient's decision [...] Future Appointment(s):04/30/2019 1:00 pm - Nurse Visit [place] at [facility] Internal [facility] - [address] 03/30/2019 1:00 pm - Nurse Visit [place] at [facility] - [address]/22/2019 10:45 am - Kori Tracy MD at [facility] Internal Medicine - [address]/29/2018 - Kori Tracy MDN18.6 End stage renal diseaseReferral:Katy Hayden MD, NephrologyFollow up:Follow up in 3 months.E87.1 Hypo- osmolality and qjmrtdrpatwvQ44.9 Heart failure, unspecifiedReferral:Thang Brandt DO, FACC, Cardiovsclr VylgacuM31.1 Anemia in chronic kidney lsbceapL29.9 Iron deficiency anemia, fgnkfteyrziL64.311 Diabetes mellitus due to underlying condition with unspecified diabetic retinopathy with macular edemaComments:Diabetes with retinopathy and nephropathyPlease see an eye doctor for follow up.Referral:Markos Rivera MD, [id number] Encounter for immunizationFollow up:Set up nurse visit [...] for eye exam Created [address] [place] [address] [phone] Thang Brandt DO, FACC T1DM, ESRF on HD, HFrEF (EF 20%) Sent [address] [place] [address] [phone] Katy Hayden MD ESRD on HD Created [address] [place] [address] [phone]
--- NOTE | 2019-03-26 07:20 | ED ---
Complex/Multi-Sys Presentation - HPI Summary HPI Summary: Pt is a 39 y/o M presenting to the ED with a chief complaint of issues with his dialysis catheter. RN at dialysis reportedly told him to be evaluated d/t residue around his catheter. Hes been on dialysis about 1 month now, with his last tx on 03/24/2019. Hes also reporting some shortness of breath that occurs every couple of days. Denies chest pain. Per nephrology - concern patient is using permacath for drugs. D/w [facility] we cannot test for this but will send UDS at their request. - History Of Current Complaint Chief Complaint: EDGeneral Time Seen by Provider: 03/26/19 06:44 Hx Obtained From: Patient Onset/Duration: Sudden Onset, Lasting Hours, Still Present Timing: Constant, Hours Severity Currently: None Location: Negative Associated Signs And Symptoms: Positive: SOB, Other - residue on catheter. Negative: Chest Pain - Allergies/Home Medications Allergies/Adverse Reactions: Allergies Allergy/AdvReac Type Severity Reaction Status Date / Time gluten Allergy Abdominal Verified 03/26/19 06:35 Pain PMH/Surg Hx/FS Hx/Imm Hx Previously Healthy: No Endocrine/Hematology History: Reports: Hx Diabetes - Type 1 Denies: Hx Anticoagulant Therapy, Hx Blood Disorders, Hx Blood Transfusions, Hx Bone Marrow Disease, Hx Systemic Lupus Erythematosus, Hx Sickle Cell Disease , Hx Thyroid Disease, Hx Anemia, Hx Unexplained Bleeding, Other Endocrine/ Hematological Disorders Cardiovascular History: Reports: Hx Hypertension Denies: Hx Cardiac Arrest, Hx Hypotension, Hx Pacemaker/ICD, Hx Peripheral Vascular Disease, Other Cardiovascular Problems/Disorders Respiratory History: Reports: Hx Pneumonia Denies: Hx Asthma, Hx Chronic Bronchitis, Hx Chronic Obstructive Pulmonary Disease (COPD), Hx Cystic Fibrosis, Hx Lung Cancer, Hx Pleural Effusion, Hx Pulmonary Edema, Hx Pulmonary Embolism, Hx Seasonal Allergies, Hx Sleep Apnea, Other Respiratory Problems/Disorders GI History: Reports: Hx Gastroesophageal Reflux Disease, Hx Gastrointestinal Bleed, Hx Ulcer - in the past, Other GI Disorders - Gastroparesis, Celiac's Denies: Hx Cirrhosis, Hx Crohn's Disease, Hx Diverticulosis, Hx Gall Bladder Disease, Hx Hiatal Hernia, Hx Irritable Bowel, Hx Jaundice, Hx Obstructive Bowel , Hx Ileostomy, Hx Pyloric Stenosis History: Reports: Hx Acute Renal Failure, Other Problems/Disorders - chronic kidney disease Denies: Hx Benign Prostatic Hyperplasia, Hx Chronic Renal Failure, Hx Dialysis, Hx Kidney Infection, Hx Kidney Stones, Hx Renal Disease Musculoskeletal History: Denies: Hx Arthritis, Hx Osteoporosis Sensory History: Reports: Hx Vision Problem Denies: Hx Cataracts, Hx Contacts or Glasses, Hx Eye Injury, Hx Eye Prosthesis, Hx Glaucoma, Hx Macular Degeneration, Hx Deafness, Hx Hearing Aid, Hx Hearing Problem, Other Sensory Impairments Opthamlomology History: Reports: Hx Vision Problem Denies: Hx Cataracts, Hx Contacts or Glasses, Hx Eye Injury, Hx Eye Prosthesis, Hx Glaucoma, Hx Macular Degeneration, Other Sensory Impairments Neurological History: Reports: Hx Headaches, Hx Nerve Disease - neuropathy r/t DM, Other Neuro Impairments/Disorders - nephro and neuroapthy r/t DM Denies: Hx Dementia, Hx Developmental Delay, Hx Migraine, Hx Seizures, Hx Spinal Cord Injury, Hx Transient Ischemic Attacks (TIA) Psychiatric History: Reports: Hx Anxiety, Hx Depression, Hx Post Traumatic Stress Disorder, Hx Inpatient Treatment, Hx Community Mental Health Tx, Hx Bipolar Disorder, Hx Substance Abuse Denies: Hx Attention Deficit Hyperactivity Disorder, Hx Eating Disorder, Hx Panic Disorder, Hx Schizophrenia, Hx Suicide Attempt, Hx of Violent Episodes Against Others, Other Psychiatric Issues/Disorders - Cancer History Cancer Type, Location and Year: celiac disease Hx Chemotherapy: No Hx Radiation Therapy: No - Surgical History Surgery Procedure, Year, and Place: fistula left forearm 01/19/19 Hx Anesthesia Reactions: No - Immunization History Date of Tetanus Vaccine: utd Date of Influenza Vaccine: no Infectious Disease History: No Infectious Disease History: Denies: Hx Hepatitis, Hx Human Immunodeficiency Virus (HIV), Hx of Known/ Suspected MRSA, Hx Shingles, Hx Tuberculosis, History Other Infectious Disease, Traveled Outside the [place] in Last 30 Days - Family History Known Family History: Positive: Cardiac Disease, Diabetes Negative: Hypertension - Social History Alcohol Use: None Hx Substance Use: Yes Substance Use Type: Reports: Marijuana Substance Use Comment - Amount & Last Used: weekly small amount ( a few grams a week) Hx Tobacco Use: Yes Smoking Status (MU): Heavy Every Day Tobacco Smoker Type: Cigarettes Amount Used/How Often: 1/2 - 1 PPD a day and has smoked in the last 30 days Length of Time of Smoking/Using Tobacco: 20 years Have You Smoked in the Last Year: Yes Review of Systems Negative: Chest Pain Positive: Shortness Of Breath Positive: Other - residue around permacath All Other Systems Reviewed And Are Negative: Yes Physical Exam - Summary Physical Exam Summary: Constitutional: Well-developed, Well-nourished, Alert. (-) Distressed Skin: Warm, Dry. R-sided permacath with mild erythema. HENT: Normocephalic; Atraumatic Eyes: Conjunctiva normal Neck: Musculoskeletal ROM normal neck. (-) JVD, (-) Stridor, (-) Nuchal rigidity Cardio: Rhythm regular, rate normal, Heart sounds normal; Intact distal pulses; Radial pulses are 2+ and symmetric. (-) Murmur Pulmonary/Chest wall: Pt is tachypnic. (-) Wheezes, (-) Rales Abd: Soft, (-) tenderness, (-) Distension, (-) Guarding, (-) Rebound Musculoskeletal: (-) Edema Lymph: (-) Cervical adenopathy Neuro: Alert, Oriented x3 Psych: Mood and affect agitated. Triage Information Reviewed: Yes Vital Signs On Initial Exam: Initial Vitals Temp Pulse Resp BP Pulse Ox 98.5 F 104 20 137/95 100 03/26/19 06:30 03/26/19 06:30 03/26/19 06:30 03/26/19 06:30 03/26/19 06:30 Vital Signs Reviewed: Yes Procedures - Sedation Patient Received Moderate/Deep Sedation with Procedure: No Diagnostics - Vital Signs Vital Signs Temp Pulse Resp BP Pulse Ox 03/26/19 06:30 98.5 F 104 20 137/95 100 - Laboratory Result Diagrams: 03/26/19 07:30 03/26/19 07:30 Lab Statement: Any lab studies that have been ordered have been reviewed, and results considered in the medical decision making process. - Radiology CXR Radiology Interpretation Completed By: Radiologist Summary of Radiographic Findings: Alveolar and interstitial pulmonary edema. ED physician has reviewed this report. Re-Evaluation - Re-Evaluation 1st re-eval Re-Evaluation Time: 09:14 Change: Improved Comment: Dr. Mera in room to draw labs. Pt will be d/c'ed to dialysis after. Complex Multi-Symp Course/Dx Course Of Treatment: 39 y/o male w hx ESRD, DM, personality d/o p/w concern for line site. - VS: HTN, mild tachypnea. - patient very agitated, verbally aggressive w staff. Nephrology requesting UDS - ordered. - will also workup for SOB w CXR, BNP, trop. Due for dialysis today. Patient declining EKG. - nephrology will take patient for dialysis after. - labs notable for baseline hyponatremia, sig elevated BNP. CXR w pulm edema c/w CHF. Given lasix, albuterol for hyperK. Patient declining IV meds - Diagnoses Provider Diagnoses: SOB (shortness of breath), ESRD (end stage renal disease) Discharge ED - Sign-Out/Discharge Documenting (check all that apply): Patient Departure - Discharge Plan Condition: Stable Disposition: HOME Referrals: [facility] [Outside] - Attestation Statements Document Initiated by Scribe: Yes Documenting Scribe: Tianna Martins Provider For Whom Flash is Documenting (Include Credential): Troy Romero MD. Scribe Attestation: I, Tianna Martins, scribed for Troy Romero MD. on 03/26/19 at 0914. Status of Scribe Document: Ready Consult Consult: 5843 - I spoke with Dr. Gardner of nephrology who is requesting a urine drug screen as there is concern he has been injecting drugs into his catheter. 0832 - Dr. Gardner said to send the pt back to dialysis when ready. 3828 - Dr. Mera will come to draw sample from catheter.
[2019-03-26 07:41] LABS: Hematocrit 33 % (42-52); Hemoglobin 11.5 g/dL (14.0-18.0); Mean Corpuscular HGB Conc 35 g/dL (31-36); Mean Corpuscular Hemoglobin 32 pg (27-31); Mean Corpuscular Volume 92 fL (80-94); Platelet Count 411 10^3/uL (150-450); Red Blood Count 3.61 10^6 /uL (4.18-5.48); Red Cell Distribution Width 21 % (10-15); White Blood Count 10.8 10^3/uL (3.5-10.8)
[2019-03-26 07:57] LABS: Albumin 3.9 g/dL (3.2-5.2); Albumin/Globulin Ratio 1.3 (1-3); BUN/Creatinine Ratio 7.9 (8-20); Calcium 8.6 mg/dL (8.6-10.3); EGFR Non-African American 13.2 (>60); Globulin 3.1 g/dL (2-4); Total Bilirubin 0.3 mg/dL (0.2-1.0)
[2019-03-26 07:58] LABS: Troponin I 0.01 ng/mL (<0.03)
[2019-03-26 07:59] LABS: Potassium 5.9 mmol/L (3.5-5.0)
[2019-03-26 08:22] LABS: ABS Basophils 0.1 10^3/ul (0-0.2); ABS Eosinophils 0.3 10^3/ul (0-0.6); ABS Lymphocytes 0.8 10^3/ul (1.0-4.8); ABS Monocytes 0.6 10^3/ul (0-0.8); Lymphocyte % 7.2 %
[2019-03-26] MEDS ORDERED: Furosemide IV* 10 MG/ML VIAL (40 MG) IV SLOW PU ONE (08:23)
[2019-03-26] MEDS ORDERED: Albuterol 2.5 MG/3 ML NEB.SOL* (0.083%) INH ONE (08:45)
[2019-03-26] MEDS: Albuterol 2.5 MG/3 ML NEB.SOL* (0.083%) INH ONE (08:47)
[2019-03-26] MEDS: Furosemide TAB* 40 MG PO ONE (09:03)
[2019-03-26 09:41] VITALS: BP 153/96
== END 2019-03-26 09:40 | disposition home or self-care (01) ==
LOC: ED 06:20
DX: R06.02 Shortness of breath (principal); E10.22 Type 1 diabetes mellitus with diabetic chronic kidney disease; I12.0 Hypertensive chronic kidney disease with stage 5 chronic kidney disease or end stage renal disease; N18.6 End stage renal disease; Z99.2 Dependence on renal dialysis; K21.9 Gastro-esophageal reflux disease without esophagitis; F41.9 Anxiety disorder, unspecified; F43.10 Post-traumatic stress disorder, unspecified; F32.9 Major depressive disorder, single episode, unspecified; F17.210 Nicotine dependence, cigarettes, uncomplicated
CPT/HCPCS: 36415; 71045; 80053; 80307; 83880; 84484; 85025; 99283; A9270-GY

== ENCOUNTER 2019-05-08 16:44 | Emergency (ER) | payer OTHER ==
--- OUTSIDE RECORDS SUMMARY | 2019-05-08 16:51 | XMS REPORT | Continuity of Care Document ---
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 No Information Available Social History Type Date Description Comments Sex Unknown Tobacco Use Start: Unknown Light tobacco smoker (10 or fewer cigarettes/day) Smoking Status Reviewed: 06/10/18 Light tobacco smoker (10 or fewer cigarettes/day) Allergies, Adverse Reactions, Alerts Active Allergies Reaction Severity Comments Date Gluten Nausea 03/25/2019 Medications Active Medications SIG Qnty Indications Ordering Date Provider Nidhi Garciapen Inject 25 Units Unknown Subcutaneously In The [...] Available Assessments Date Code Description Provider 03/25/2019 N18.6 End stage renal disease Luis Alberto Hong 03/25/2019 Z99.2 Dependence on renal dialysis Luis Alberto Hong 03/25/2019 Z68.1 Body mass index (BMI) 19.9 or less, adult Luis Alberto Hong Plan of Treatment Future Appointment(s):04/20/2019 9:30 am - Luis Alberto Hong at [facility] Functional Status Description No Information Available Mental Status Description No Information Available Referrals Description No Information Available
--- OUTSIDE RECORDS SUMMARY | 2019-05-08 16:51 | XMS REPORT | Continuity of Care Document ---
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 Problems Provider Date End-stage renal disease Luis Alberto Hong Onset: 04/20/2019 End stage renal failure on dialysis Luis Alberto Hong Onset: 04/20/2019 Body mass index (BMI) 19.9 or less, adult Luis Alberto Hong Onset: 04/20/2019 Social History Type Date Description Comments Sex Unknown Tobacco Use Start: Unknown Light tobacco smoker (10 or fewer cigarettes/day) Smoking Status Reviewed: 06/10/18 Light tobacco smoker (10 or fewer cigarettes/day) Allergies, Adverse Reactions, Alerts Active Allergies Reaction Severity Comments Date Gluten Nausea 03/25/2019 Medications Active Medications SIG Qnty Indications Ordering Date Provider Nidhi Lamar Inject 25 Units Unknown Subcutaneously In The 100Unit/ML Solution Morning Pen-Inject Admelog Inject 1 Unit For Unknown 100Unit/ML Fasting Blood Glucose Solution 200 Increase By 1 Unit For Every 25MG Glucose 200 Limit 10 Units Per Injection 1 Injection 3 To 4 Ti Furosemide Take 3 Tablets By Unknown 40mg Mouth Twice Daily Tablets Immunizations Description No Information Available Vital Signs Date Vital Result Comment 04/20/2019 9:40am Height 69 inches 5'9" Weight 130.00 lb BP Systolic 135 mmHg BP Diastolic 93 mmHg BMI (Body Mass Index) 19.2 kg/m2 Heart Rate 97 /min Respiratory Rate 16 /min Pain Level 5 back pain 03/25/2019 1:49pm Height 69 inches 5'9" Weight 130.00 lb BP Systolic 114 mmHg BP Diastolic 84 mmHg BMI (Body Mass Index) 19.2 kg/m2 Heart Rate 96 /min Respiratory Rate 18 /min Pain Level 5 out of 10 Results Description No Information Available Procedures Description No Information Available Medical Devices Description No Information Available Encounters Type Date Location Provider Dx Diagnosis Office Visit 03/25/2019 2:00p [facility] Luis Alberto Hong N18.6 End stage renal disease Z99.2 Dependence on renal dialysis Z68.1 Body mass index (BMI) 19.9 or less, adult Assessments Date Code Description Provider 04/20/2019 N18.6 End stage renal disease Hong, Luis Alberto 04/20/2019 Z99.2 Dependence on renal dialysis Hong, Luis Alberto 04/20/2019 Z68.1 Body mass index (BMI) 19.9 or less, adult Hong, Luis Alberto 03/25/2019 N18.6 End stage renal disease Hong, Luis Alberto 03/25/2019 Z99.2 Dependence on renal dialysis Hong, Luis Alberto 03/25/2019 Z68.1 Body mass index (BMI) 19.9 or less, adult Hong, Luis Alberto Plan of Treatment No Information Available Functional Status Description No Information Available Mental Status Description No Information Available Referrals Description No Information Available
--- OUTSIDE RECORDS SUMMARY | 2019-05-08 16:51 | XMS REPORT | Continuity of Care Document ---
:1980 External Reference #:[id number] Author Name HongLuis Alberto groves (transmitted by agent of provider Tia Perera) Address [address], [place] [address] Care Team Providers Name Role Phone Katy Hayden MD - Nephrology Care Team Information Clinical Program Coordinator [phone] Problems Active Problems Provider Date End-stage renal [...] Office Visit 03/25/2019 2:00p [facility] HongVladislavLuis Alberto N18.6 End stage renal disease Z99.2 Dependence [...]
[2019-05-08 17:04] VITALS: BP 141/107
--- NOTE | 2019-05-08 17:32 | UC ---
UC General HPI - HPI Summary HPI Summary: 39-year-old male comes in with a chief complaint of his left arm fistula hurting. Patient reports the pain started 3 days ago when they attempted to cannulate the fistula at dialysis. He's continued to have pain since that time. Pain is worse with movement of the hand and the wrist and if he puts any pressure on the fistula. He has tried topical lidocaine without any relief. He 's also been using acetaminophen without any relief. No fevers or chills feels well otherwise. Has not seen any redness at the site. The pain does radiate down into the hand but the patient reports the hand itself does not hurt. Has not seen any evidence of loss of blood flow to the hand or the arm. - History of Current Complaint Chief Complaint: UCGeneralIllness Stated Complaint: ARM PAIN Time Seen by Provider: 05/08/19 16:58 Pain Intensity: 4 - Allergy/Home Medications Allergies/Adverse Reactions: Allergies Allergy/AdvReac Type Severity Reaction Status Date / Time gluten Allergy Abdominal Verified 03/26/19 06:35 Pain Home Medications: Home Medications Insulin Glargine,Hum.rec.anlog [Basaglar Kwikpen 100 inuts/ml 3 ml x 5 Pens] 20 unit SUBCUT QPM 01/22/19 [History Confirmed 03/26/19] Insulin Lispro [Admelog Solostar 100 units/ml 3 ml x 5 Pens] 0 unit SUBCUT .TID- QID 01/22/19 [History Confirmed 03/26/19] Ravela 05/08/19 [History] oxyCODONE TAB* [Roxycodone TAB 5 mg*] 5 mg PO Q4H PRN #30 tab MDD 6 05/08/19 [Rx ] PMH/Surg Hx/FS Hx/Imm Hx Previously Healthy: Yes - kidney failure, on dialysis Other History Of: Negative For: Anticoagulant Therapy - Surgical History Surgical History: Yes Surgery Procedure, Year, and Place: fistula left forearm 01/19/19 - Family History Known Family History: Positive: Cardiac Disease, Diabetes Negative: Hypertension - Social History Alcohol Use: None Substance Use Type: Marijuana Substance Use Comment - Amount & Last Used: weekly small amount ( a few grams a week) Smoking Status (MU): Heavy Every Day Tobacco Smoker Type: Cigarettes Amount Used/How Often: 1/2 - 1 PPD a day and has smoked in the last 30 days Length of Time of Smoking/Using Tobacco: 20 years Have You Smoked in the Last Year: Yes When Did the Patient Quit Smoking/Using Tobacco: SMOKES MARIJUANA WELL Household Exposure Type: Cigarettes - Immunization History Most Recent Influenza Vaccination: unknown Most Recent Tetanus Shot: 2009 Most Recent Pneumonia Vaccination: not received Review of Systems All Other Systems Reviewed And Are Negative: Yes Constitutional: Positive: Negative Skin: Positive: Other - see hpi Eyes: Positive: Negative ENT: Positive: Negative Respiratory: Positive: Negative Cardiovascular: Positive: Negative Gastrointestinal: Positive: Negative Motor: Positive: Negative Neurovascular: Positive: Negative Musculoskeletal: Positive: Other: - see hpi Neurological/Mental Status: Positive: Negative Psychological: Positive: Negative Is Patient Immunocompromised?: No Physical Exam Triage Information Reviewed: Yes Appearance: Well-Appearing, Well-Nourished, Pain Distress - mild with exam of left forearm fistula Vital Signs: Initial Vital Signs Temp 99.5 F 05/08/19 17:01 Pulse 99 05/08/19 17:01 Resp 18 05/08/19 17:01 BP 141/107 05/08/19 17:01 Pulse Ox 100 05/08/19 17:01 Vital Signs Reviewed: Yes Eye Exam: Normal Eyes: Positive: Conjunctiva Clear Neck: Positive: Supple Respiratory: Positive: No respiratory distress Musculoskeletal: Positive: Strength Intact, ROM Intact Neurological: Positive: Alert, Muscle Tone Normal Psychological: Positive: Age Appropriate Behavior Skin: Positive: Other - Left forearm has a fistula. I feel a thrill. When I auscultate there is a rumble with a pulse of the background. Normal radial pulse. Normal capillary refill throughout the hand and wrist. There is no erythema or warmth over the fistula. Wrist and fingers have full range of motion full-strength normal capillary refill. No evidence of infection or ischemia on exam at this time. Course/Dx - Course Course Of Treatment: I discussed the case with the vascular surgeon doctor Hogn who has taken over the patient's care for his fistula. He let me know that his lungs is no signs of infection or ischemia and the hand it's appropriate to treat with pain medication and have the patient follow-up with him in the office next week. Patient is going to call the vascular surgeon on SaturdayMay 11, 2019 to arrange follow-up. I discussed with the patient if there is any signs of infection or loss of blood flow or ischemia in the left arm or hand that he needs to go directly to the emergency department. Patient reports he will do that if he has any signs of infection or ischemia. - Diagnoses Provider Diagnosis: Pain from arteriovenous fistula Discharge ED - Sign-Out/Discharge Documenting (check all that apply): Patient Departure All imaging exams completed and their final reports reviewed: No Studies - Discharge Plan Condition: Stable Disposition: HOME Prescriptions: oxyCODONE TAB* [Roxycodone TAB 5 mg*] 5 mg PO Q4H PRN #30 tab MDD 6 PRN Reason: Pain - Severe Patient Education Materials: Arm Pain (ED) Referrals: Luis Alberto Hong MD [Medical Doctor] - Additional Instructions: Follow-up with Dr. Hong the vascular surgeon. Call in the morning of May 11, 2019 to arrange follow-up in his office. If there is any evidence of infection in the fistula or if there is any evidence of loss of blood flow in your left hand or arm, go directly to the emergency department immediately. - Billing Disposition and Condition Condition: STABLE Disposition: Home
== END 2019-05-08 17:48 | disposition home or self-care (01) ==
LOC: UCEAST 16:44
DX: T82.848A Pain due to vascular prosthetic devices, implants and grafts, initial encounter (principal); N18.9 Chronic kidney disease, unspecified; Y82.8 Other medical devices associated with adverse incidents; Y92.9 Unspecified place or not applicable; F17.210 Nicotine dependence, cigarettes, uncomplicated; Z91.018 Allergy to other foods; Z99.2 Dependence on renal dialysis
CPT/HCPCS: 99212; G0463

== ENCOUNTER 2019-11-19 06:53 | Inpatient (IN) ==
[2019-11-19] MEDS ORDERED: Naloxone 0.4 mg VIAL 0.4 mg/ml 1 ml VIAL ONE (08:20)
[2019-11-19] MEDS ORDERED: EPINEPHrine SYR 0.1MG/ML 10 ml SYRINGE ONE (08:25)
[2019-11-19 08:30] LABS: ABS Lymphocytes 0.9 10^3/ul (1.0-4.8); ABS Monocytes 0.4 10^3/ul (0-0.8); ABS Neutrophils 9.7 10^3/ul (1.5-7.7); Hematocrit 34 % (42-52); Hemoglobin 11.3 g/dL (14.0-18.0); Lymphocyte % 8.5 %; Mean Corpuscular HGB Conc 33 g/dL (31-36); Mean Corpuscular Hemoglobin 31 pg (27-31); Mean Corpuscular Volume 94 fL (80-94); Mean Platelet Volume 7.8 fL (7.4-10.4); Nucleated Red Blood Cells % 0.1; Platelet Count 260 10^3/uL (150-450); Red Blood Count 3.66 10^6 /uL (4.18-5.48); Red Cell Distribution Width 14 % (10-15); White Blood Count 11.1 10^3/uL (3.5-10.8)
[2019-11-19] MEDS ORDERED: Etomidate 40 mg/20 ml (2 MG/ML) 20 ml VIAL (40 mg) ONE (08:39)
[2019-11-19] MEDS ORDERED: Rocuronium 50 mg VIAL 10 mg/ml 5 ml VIAL (50 mg) ONE (08:39)
[2019-11-19] MEDS ORDERED: Dextrose 50% Syringe 50 ml 25 GM/50 ML SYRINGE IV PUSH ONE (08:44)
[2019-11-19 08:46] LABS: Albumin 3.5 g/dL (3.2-5.2); Albumin/Globulin Ratio 1.5 (1-3); BUN/Creatinine Ratio 9.8 (8-20); Calcium 8.5 mg/dL (8.6-10.3); EGFR African American 9.1 (>60); EGFR Non-African American 7.6 (>60); Globulin 2.4 g/dL (2-4); Total Bilirubin 0.5 mg/dL (0.2-1.0); Total Protein 5.9 g/dL (6.4-8.9)
[2019-11-19 09:51] LABS: Urine Appearance Clear; Urine Bilirubin Negative (Negative); Urine Blood Negative (Negative); Urine Color Yellow; Urine Glucose 2+(150 mg/dL) (Negative); Urine Ketones Negative (Negative); Urine Nitrite Negative (Negative); Urine Protein 3+(>=500 mg/dL) (Negative); Urine Specific Gravity 1.015 (1.010-1.030); Urine Urobilinogen Negative (Negative)
[2019-11-19 10:09] LABS: Urine Benzodiazepine Screen None Detected (None Detect); Urine Cannabinoids Screen Presumptive Positive (None Detect); Urine Opiates Screen None Detected (None Detect)
[2019-11-19 10:28] LABS: Magnesium 2.2 mg/dL (1.9-2.7)
[2019-11-19 10:32] LABS: Potassium 7.5 mmol/L (3.5-5.0)
[2019-11-19 10:37] LABS: Urine Bacteria Absent (Absent); Urine Red Blood Cell 2+(6-10/hpf) (Absent); Urine Squamous Epithelial Cell Present (Absent); Urine White Blood Cell Trace(0-5/hpf) (Absent)
[2019-11-19] MEDS ORDERED: Lorazepam PYXIS KEY ONE ×3 (11:08→13:51)
[2019-11-19] MEDS ORDERED: LORazepam 2 mg VIAL 1 ml ONE ×4 (11:09→13:52)
[2019-11-19 11:23] LABS: Hematocrit 36 % (42-52); Hemoglobin 11.8 g/dL (14.0-18.0); Mean Corpuscular HGB Conc 33 g/dL (31-36); Mean Corpuscular Hemoglobin 31 pg (27-31); Mean Corpuscular Volume 94 fL (80-94); Mean Platelet Volume 8.7 fL (7.4-10.4); Platelet Count 274 10^3/uL (150-450); Red Cell Distribution Width 14 % (10-15); White Blood Count 15.7 10^3/uL (3.5-10.8)
[2019-11-19 11:28] LABS: ALT 138 U/L (7-52); AST 83 U/L (13-39); Albumin 3.8 g/dL (3.2-5.2); Albumin/Globulin Ratio 1.6 (1-3); Alkaline Phosphatase 165 U/L (34-104); BUN/Creatinine Ratio 9.4 (8-20); Blood Urea Nitrogen 76 mg/dL (6-24); CO2 Carbon Dioxide 16 mmol/L (22-32); Calcium 9.6 mg/dL (8.6-10.3); Chloride 92 mmol/L (101-111); EGFR African American 9.1 (>60); EGFR Non-African American 7.5 (>60); Globulin 2.4 g/dL (2-4); Glucose 208 mg/dL (70-100); Sodium 127 mmol/L (135-145); Total Protein 6.2 g/dL (6.4-8.9)
[2019-11-19 11:42] LABS: Anion Gap 19 mmol/L (2-11); Potassium 6.8 mmol/L (3.5-5.0); Troponin I 0.06 ng/mL (<0.03)
[2019-11-19 11:43] LABS: Activated Partial Thrombo Time 28.1 seconds (26.0-38.0); INR 1.35 (0.82-1.09)
[2019-11-19] MEDS ORDERED: Sodium Bicarbonate 8.4% SYR 50 ml SYRINGE ONE (12:13)
[2019-11-19] MEDS: Meperidine 50 mg/ml SYRINGE 1 ml IV PRN ×3 (13:15→15:48)
[2019-11-19] MEDS ORDERED: Lorazepam PYXIS KEY PRN (13:52)
[2019-11-19] MEDS ORDERED: Dexmedetomidine 1,000 MCG in NS 0.9% 250 ml 240 ML IV SCH ×2 (14:00→22:43)
[2019-11-19] MEDS ORDERED: fentaNYL 100 mcg/2 ml 50 MCG/ML VIAL ONE (14:17)
[2019-11-19] MEDS ORDERED: Albumin Human 25% 12.5 GM/50 ML BTL IV PRN (14:20)
[2019-11-19] MEDS ORDERED: Acetaminophen IV 1 GM/100ML 100 ML ONE (14:26)
[2019-11-19] MEDS: Acetaminophen IV 1 GM/100ML 100 ML IVPB SCH ×2 (14:28→22:50)
[2019-11-19] MEDS ORDERED: Zosyn per Pharmacy NOTE FOLLOW UP SCH (15:00)
[2019-11-19] MEDS ORDERED: Piperacillin/Tazobac ADVAN 3.375 GM in NS 0.9% 100 ml BAG 100 ML IV ONE (15:00)
[2019-11-19] MEDS: Pantoprazole VIAL 40 MG VIAL IV SCH (16:24)
[2019-11-19] MEDS: Chlorhexidine MOUTHWASH 0.12% 15 ML UDC SWISH SPIT SCH ×3 (17:47→23:53)
[2019-11-19] MEDS: Heparin 1,000 UNIT/ML 10 ml (10,000 UNITS) CATHLAB/DIALYSIS DIALYSIS ONE ×2 (19:45→20:20)
[2019-11-19] MEDS: ZOSYN 3.375 GM Q12H per EXTENDED INFUSION IV SCH (20:06)
[2019-11-19 20:19] LABS: Hematocrit 30 % (42-52); Hemoglobin 10.3 g/dL (14.0-18.0); Mean Corpuscular HGB Conc 34 g/dL (31-36); Mean Corpuscular Hemoglobin 32 pg (27-31); Mean Corpuscular Volume 93 fL (80-94); Mean Platelet Volume 8.5 fL (7.4-10.4); Platelet Count 153 10^3/uL (150-450); Red Blood Count 3.23 10^6 /uL (4.18-5.48); Red Cell Distribution Width 14 % (10-15); White Blood Count 11.7 10^3/uL (3.5-10.8)
[2019-11-19 20:46] LABS: ALT 152 U/L (7-52); AST 108 U/L (13-39); Albumin 3.4 g/dL (3.2-5.2); Albumin/Globulin Ratio 1.5 (1-3); Alkaline Phosphatase 137 U/L (34-104); Anion Gap 9 mmol/L (2-11); BUN/Creatinine Ratio 8.8 (8-20); Blood Urea Nitrogen 48 mg/dL (6-24); CO2 Carbon Dioxide 24 mmol/L (22-32); Calcium 8.6 mg/dL (8.6-10.3); Chloride 97 mmol/L (101-111); EGFR African American 14.3 (>60); EGFR Non-African American 11.8 (>60); Globulin 2.2 g/dL (2-4); Glucose 83 mg/dL (70-100); Magnesium 1.9 mg/dL (1.9-2.7); Potassium 5.2 mmol/L (3.5-5.0); Sodium 130 mmol/L (135-145); Total Protein 5.6 g/dL (6.4-8.9)
[2019-11-19 20:48] LABS: Troponin I 0.16 ng/mL (<0.03)
[2019-11-19] MEDS ORDERED: Magnesium Sulfate IV 1GM/100ML 1 GM/100 ML BAG IV ONE (21:26)
[2019-11-19] MEDS ORDERED: D10W 1000 ml BAG 1,000 ML IV SCH (22:31)
[2019-11-19] MEDS ORDERED: Midazolam 50 MG VIAL IV DRIP 50 ML IV SCH (23:45)
[2019-11-19] MEDS: Heparin 5000 UNITS/ML 1 mL VIAL SUBCUT SCH (23:53)
[2019-11-20] MEDS ORDERED: D10W 1000 ml BAG 1,000 ML IV SCH (00:37)
[2019-11-20] MEDS: Chlorhexidine MOUTHWASH 0.12% 15 ML UDC SWISH SPIT SCH ×6 (04:13→23:42)
[2019-11-20 04:46] LABS: ALT 142 U/L (7-52); AST 83 U/L (13-39); Albumin 3.1 g/dL (3.2-5.2); Albumin/Globulin Ratio 1.4 (1-3); Alkaline Phosphatase 124 U/L (34-104); BUN/Creatinine Ratio 8.5 (8-20); Blood Urea Nitrogen 51 mg/dL (6-24); CO2 Carbon Dioxide 21 mmol/L (22-32); Calcium 8.3 mg/dL (8.6-10.3); Chloride 95 mmol/L (101-111); EGFR African American 12.8 (>60); EGFR Non-African American 10.6 (>60); Globulin 2.2 g/dL (2-4); Glucose 74 mg/dL (70-100); Magnesium 2.4 mg/dL (1.9-2.7); Phosphorus 7.1 mg/dL (2.5-5.0); Sodium 128 mmol/L (135-145); Total Protein 5.3 g/dL (6.4-8.9)
[2019-11-20 04:52] LABS: ABS Lymphocytes 0.9 10^3/ul (1.0-4.8); ABS Monocytes 0.4 10^3/ul (0-0.8); ABS Neutrophils 8.5 10^3/ul (1.5-7.7); Eosinophil % 0.1 %; Hematocrit 31 % (42-52); Hemoglobin 10.4 g/dL (14.0-18.0); Lymphocyte % 9.5 %; Mean Corpuscular HGB Conc 34 g/dL (31-36); Mean Corpuscular Hemoglobin 32 pg (27-31); Mean Corpuscular Volume 94 fL (80-94); Platelet Count 145 10^3/uL (150-450); Red Blood Count 3.27 10^6 /uL (4.18-5.48); Red Cell Distribution Width 14 % (10-15); White Blood Count 9.9 10^3/uL (3.5-10.8)
[2019-11-20 04:53] LABS: Anion Gap 12 mmol/L (2-11)
[2019-11-20] MEDS: fentaNYL 100 mcg/2 ml 50 MCG/ML VIAL IV SLOW PU PRN ×5 (05:08→13:19)
[2019-11-20] MEDS: Meperidine 50 mg/ml SYRINGE 1 ml IV PRN (05:23)
[2019-11-20] MEDS: Acetaminophen IV 1 GM/100ML 100 ML IVPB SCH (06:13)
[2019-11-20] MEDS: Heparin 1,000 UNIT/ML 10 ml (10,000 UNITS) CATHLAB/DIALYSIS DIALYSIS ONE ×5 (07:35→12:02)
[2019-11-20 07:44] LABS: Troponin I 0.09 ng/mL (<0.03)
[2019-11-20] MEDS: ZOSYN 3.375 GM Q12H per EXTENDED INFUSION IV SCH ×2 (08:08→20:02)
[2019-11-20 09:03] LABS: Hepatitis B Surface Antigen Nonreactive (Nonreactive)
[2019-11-20] MEDS: Heparin 5000 UNITS/ML 1 mL VIAL SUBCUT SCH ×2 (09:17→20:01)
[2019-11-20 09:21] LABS: Hepatitis B Surface Ab Immune (Immune)
[2019-11-20] MEDS: LORazepam 2 mg VIAL 1 ml IV PUSH PRN ×2 (10:19→13:57)
[2019-11-20] MEDS: Midazolam 50 MG VIAL IV DRIP 50 ML IV SCH ×3 (10:59→22:40)
[2019-11-20] MEDS ORDERED: fentaNYL INFUSION 50 MCG/ML 2,500 MCG/50 ML BAG IV SCH ×2 (14:00→19:22)
[2019-11-20] MEDS ORDERED: Dextrose 50% Syringe 50 ml 25 GM/50 ML SYRINGE ONE ×2 (14:16→17:45)
[2019-11-20 15:13] LABS: ABS Lymphocytes 0.3 10^3/ul (1.0-4.8); ABS Monocytes 0.5 10^3/ul (0-0.8); ABS Neutrophils 14.5 10^3/ul (1.5-7.7); Eosinophil % 0.1 %; Hematocrit 35 % (42-52); Hemoglobin 11.4 g/dL (14.0-18.0); Lymphocyte % 1.7 %; Mean Corpuscular HGB Conc 32 g/dL (31-36); Mean Corpuscular Hemoglobin 31 pg (27-31); Mean Corpuscular Volume 94 fL (80-94); Mean Platelet Volume 8.5 fL (7.4-10.4); Platelet Count 192 10^3/uL (150-450); Red Blood Count 3.73 10^6 /uL (4.18-5.48); Red Cell Distribution Width 14 % (10-15); White Blood Count 15.3 10^3/uL (3.5-10.8)
[2019-11-20 15:32] LABS: BUN/Creatinine Ratio 7.3 (8-20); EGFR African American 21.5 (>60); EGFR Non-African American 17.8 (>60); Magnesium 1.8 mg/dL (1.9-2.7); Phosphorus 4.7 mg/dL (2.5-5.0)
[2019-11-20] MEDS: Pantoprazole VIAL 40 MG VIAL IV SCH (16:07)
[2019-11-20] MEDS ORDERED: Dextrose 50% Syringe 50 ml 25 GM/50 ML SYRINGE IV PUSH PRN (17:24)
[2019-11-20] MEDS ORDERED: Magnesium Sulfate 2 GM IV (Premix) IVPB ONE (17:30)
[2019-11-21] MEDS: Midazolam 50 MG VIAL IV DRIP 50 ML IV SCH (04:15)
[2019-11-21 04:36] LABS: ABS Eosinophils 0.1 10^3/ul (0-0.6); ABS Lymphocytes 0.6 10^3/ul (1.0-4.8); ABS Monocytes 0.5 10^3/ul (0-0.8); ABS Neutrophils 13.4 10^3/ul (1.5-7.7); Eosinophil % 0.4 %; Hematocrit 33 % (42-52); Hemoglobin 10.8 g/dL (14.0-18.0); Lymphocyte % 3.9 %; Mean Corpuscular HGB Conc 33 g/dL (31-36); Mean Corpuscular Hemoglobin 30 pg (27-31); Mean Corpuscular Volume 93 fL (80-94); Mean Platelet Volume 8.3 fL (7.4-10.4); Platelet Count 219 10^3/uL (150-450); Red Blood Count 3.54 10^6 /uL (4.18-5.48); Red Cell Distribution Width 14 % (10-15); White Blood Count 14.6 10^3/uL (3.5-10.8)
[2019-11-21 04:49] LABS: Activated Partial Thrombo Time 29.7 seconds (26.0-38.0); INR 1.41 (0.82-1.09)
[2019-11-21] MEDS: fentaNYL 100 mcg/2 ml 50 MCG/ML VIAL IV SLOW PU PRN (04:49)
[2019-11-21] MEDS: Chlorhexidine MOUTHWASH 0.12% 15 ML UDC SWISH SPIT SCH ×3 (05:00→10:00)
[2019-11-21 05:04] LABS: Albumin/Globulin Ratio 1.5 (1-3); BUN/Creatinine Ratio 7.7 (8-20); Calcium 7.6 mg/dL (8.6-10.3); EGFR African American 16.4 (>60); EGFR Non-African American 13.6 (>60); Magnesium 2.6 mg/dL (1.9-2.7); Phosphorus 5.4 mg/dL (2.5-5.0); Total Bilirubin 0.6 mg/dL (0.2-1.0)
[2019-11-21 05:31] LABS: Potassium 5.4 mmol/L (3.5-5.0)
[2019-11-21] MEDS: ZOSYN 3.375 GM Q12H per EXTENDED INFUSION IV SCH ×2 (08:06→20:11)
[2019-11-21] MEDS: Heparin 5000 UNITS/ML 1 mL VIAL SUBCUT SCH ×2 (08:11→22:21)
[2019-11-21] MEDS: Patiromer POWDER 8.4 GM PAK PO SCH (09:52)
[2019-11-21] MEDS: Pantoprazole VIAL 40 MG VIAL IV SCH (15:01)
[2019-11-21] MEDS ORDERED: Haloperidol 5 mg/ml SDV IV/IM 5 MG/ML AMP IV SLOW PU PRN ×2 (15:12→17:52)
[2019-11-21] MEDS: LORazepam 2 mg VIAL 1 ml IV PUSH PRN (15:18)
[2019-11-21] MEDS: LORazepam 2 mg VIAL 1 ml IV PUSH SCH ×2 (20:11→22:21)
[2019-11-21 21:01] LABS: BUN/Creatinine Ratio 7.2 (8-20); Calcium 8.7 mg/dL (8.6-10.3); EGFR African American 12.8 (>60); EGFR Non-African American 10.6 (>60); Potassium 4.9 mmol/L (3.5-5.0)
[2019-11-21] MEDS ORDERED: diPHENhydraMINE IV 50 MG/ML 1 ml VIAL (BENADRYL) ONE (22:40)
[2019-11-21] MEDS ORDERED: diPHENhydraMINE IV 50 MG/ML 1 ml VIAL (BENADRYL) IV ONE (22:41)
[2019-11-22] MEDS: LORazepam 2 mg VIAL 1 ml IV PUSH SCH ×3 (00:11→04:29)
[2019-11-22 05:03] LABS: ABS Basophils 0.1 10^3/ul (0-0.2); ABS Eosinophils 0.2 10^3/ul (0-0.6); ABS Lymphocytes 0.5 10^3/ul (1.0-4.8); ABS Monocytes 0.5 10^3/ul (0-0.8); Eosinophil % 1.3 %; Hematocrit 30 % (42-52); Lymphocyte % 4.2 %; Mean Corpuscular HGB Conc 34 g/dL (31-36); Mean Corpuscular Hemoglobin 31 pg (27-31); Mean Corpuscular Volume 93 fL (80-94); Mean Platelet Volume 8.2 fL (7.4-10.4); Platelet Count 195 10^3/uL (150-450); Red Blood Count 3.17 10^6 /uL (4.18-5.48); Red Cell Distribution Width 14 % (10-15); White Blood Count 12.3 10^3/uL (3.5-10.8)
[2019-11-22 05:20] LABS: Albumin 3.4 g/dL (3.2-5.2); Albumin/Globulin Ratio 1.4 (1-3); BUN/Creatinine Ratio 7.3 (8-20); Calcium 8.9 mg/dL (8.6-10.3); EGFR African American 11.8 (>60); EGFR Non-African American 9.7 (>60); Globulin 2.5 g/dL (2-4); Magnesium 2.8 mg/dL (1.9-2.7); Phosphorus 5.7 mg/dL (2.5-5.0); Total Bilirubin 0.8 mg/dL (0.2-1.0); Total Protein 5.9 g/dL (6.4-8.9)
[2019-11-22 05:25] LABS: Potassium 5.3 mmol/L (3.5-5.0)
[2019-11-22] MEDS ORDERED: Magnesium Sulfate 2 gm BAG 2 GM/50 ML BAG IVPB ONE (05:48)
[2019-11-22] MEDS ORDERED: Magnesium Sulfate IV 1GM/100ML 1 GM/100 ML BAG IV ONE (06:03)
[2019-11-22] MEDS ORDERED: Metoprolol Tartrate 5 mg VIAL 5 ml VIAL (1 mg/ml) IV ONE (06:07)
[2019-11-22] MEDS: ZOSYN 3.375 GM Q12H per EXTENDED INFUSION IV SCH ×2 (08:39→20:16)
[2019-11-22] MEDS: Heparin 5000 UNITS/ML 1 mL VIAL SUBCUT SCH ×2 (08:52→20:16)
[2019-11-22] MEDS ORDERED: Multivitamins/Minerals TAB PO SCH (09:00)
[2019-11-22] MEDS: Patiromer POWDER 8.4 GM PAK PO SCH (10:35)
[2019-11-22] MEDS ORDERED: Sodium Polystyrene ORAL.SUSP 15 GM/60 ML BTL ONE (12:20)
[2019-11-22] MEDS: Pantoprazole VIAL 40 MG VIAL IV SCH (15:15)
[2019-11-22] MEDS ORDERED: Dextrose 50% Syringe 50 ml 25 GM/50 ML SYRINGE IV PUSH PRN (19:52)
[2019-11-23] MEDS ORDERED: Lorazepam PYXIS KEY PRN (00:01)
[2019-11-23] MEDS ORDERED: LORazepam 2 mg VIAL 1 ml IV PUSH ONE (00:01)
[2019-11-23] MEDS ORDERED: Lorazepam PYXIS KEY ONE (00:05)
[2019-11-23] MEDS ORDERED: LORazepam 2 mg VIAL 1 ml ONE (00:06)
[2019-11-23] MEDS ORDERED: diPHENhydraMINE IV 50 MG/ML 1 ml VIAL (BENADRYL) IV ONE (00:33)
[2019-11-23 06:13] LABS: ABS Eosinophils 0.1 10^3/ul (0-0.6); ABS Lymphocytes 0.7 10^3/ul (1.0-4.8); ABS Monocytes 0.8 10^3/ul (0-0.8); ABS Neutrophils 12.4 10^3/ul (1.5-7.7); Eosinophil % 0.8 %; Hematocrit 31 % (42-52); Hemoglobin 10.1 g/dL (14.0-18.0); Lymphocyte % 4.8 %; Mean Corpuscular HGB Conc 33 g/dL (31-36); Mean Corpuscular Hemoglobin 31 pg (27-31); Mean Corpuscular Volume 94 fL (80-94); Platelet Count 199 10^3/uL (150-450); Red Blood Count 3.27 10^6 /uL (4.18-5.48); Red Cell Distribution Width 14 % (10-15)
[2019-11-23 06:28] LABS: Albumin 3.4 g/dL (3.2-5.2); Albumin/Globulin Ratio 1.3 (1-3); BUN/Creatinine Ratio 8.4 (8-20); Calcium 9.1 mg/dL (8.6-10.3); EGFR African American 8.8 (>60); EGFR Non-African American 7.3 (>60); Globulin 2.7 g/dL (2-4); Magnesium 3.4 mg/dL (1.9-2.7); Phosphorus 8.8 mg/dL (2.5-5.0); Total Bilirubin 0.7 mg/dL (0.2-1.0); Total Protein 6.1 g/dL (6.4-8.9)
[2019-11-23 06:39] LABS: Potassium 6.4 mmol/L (3.5-5.0)
[2019-11-23] MEDS ORDERED: fentaNYL 100 mcg/2 ml 50 MCG/ML VIAL IV SLOW PU ONE (08:31)
[2019-11-23] MEDS ORDERED: Labetalol IV 5 MG/ML 20 ml VIAL IV PUSH ONE (08:35)
[2019-11-23 08:54] VITALS: BP 160/105
== END 2019-11-23 08:57 | disposition short-term general hospital (02) | DRG 70 ==
LOC: ED 06:53 → ICU 09:50
PROVIDERS: ADMIT Internal Medicine; ATTEND Internal Medicine